=== PATIENT | female | born 1965 | race Caucasian/White ===

== ENCOUNTER 2022-12-28 07:21 | Outpatient (RCR) | payer MEDICARE, OTHER, MEDICAID, SELFPAY ==
--- NOTE | 2022-12-16 | CR1_ITS ---
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
--- NOTE | 2022-12-16 12:39 | CR1_ITS ---
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
--- NOTE | 2023-01-13 14:09 | CR1_ITS ---
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
--- NOTE | 2023-02-11 14:18 | CR1_ITS ---
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
== END 2023-03-03 08:45 | disposition home or self-care (01) ==
LOC: CR 07:21
PROVIDERS: PCP Family Medicine; Visit Provider Family Medicine
DX: I20.8 Other forms of angina pectoris (principal)
CPT/HCPCS: 93798

== ENCOUNTER 2023-02-12 08:59 | Outpatient (OUT) | payer MEDICARE, OTHER, MEDICAID, SELFPAY ==
--- NOTE | 2023-02-12 09:38 | CA_ITS ---
Patient: YARI ALSTON Exam Date: 02/12/2023 : 1965 Gender:F Ordering : LINDA MAN Admission #: [id number] Family : Order #: [id number] CLICK HERE TO VIEW EXAM ECHOCARDIOGRAM REPORT PROCEDURE: CA ECHO DOPPLER COMPLETE INDICATIONS: Abnormal ECG, h/o myocardial infarction, hypertension COMPARISON: None. DESCRIPTION: COMPLETE ECHOCARDIOGRAM Real-time transthoracic echocardiography with 2D, M-mode, spectral and color flow Doppler performed. QUALITY: Technical quality was good. LEFT VENTRICLE: Normal chamber size. Mild concentric left ventricular hypertrophy. Global left ventricular systolic function is normal. LV EF: Normal left ventricular ejection fraction, (>55%). DIASTOLIC: Diastolic function is indeterminate. ATRIAL SEPTUM: LEFT ATRIUM: Mild dilatation. RIGHT ATRIUM: Mild dilatation. RIGHT VENTRICLE: Normal chamber size. Normal right ventricular systolic function. TRICUSPID VALVE: Normal mobility and thickness. No stenosis with trivial regurgitation. Doppler studies reveal mildly (35-45) elevated right sided pressures. RVSP 39 mmHg MITRAL VALVE: Normal mobility and thickness. No evidence of mitral valve stenosis. There is no mitral annular calcification. No mitral regurgitation. AORTIC VALVE: Normal trileaflet appearance. No visible sclerosis. Normal leaflet mobility. No evidence of aortic valve stenosis. No aortic regurgitation. AORTIC ROOT: Normal diameter and appearance. PULMONIC VALVE: Normal thickness and mobility. No stenosis. No regurgitation. PERICARDIUM: Trivial pericardial effusion. IVC: Unable to see due to packed wound. PLEURA: CONCLUSION: 1. Mild concentric left ventricular hypertrophy with normal systolic function. LVEF is 55 to 60%. 2. Normal right ventricular size and systolic function. 3. Mild biatrial dilatation. 4. No significant valvular dysfunction. 5. Mildly elevated right-sided pressures. Adult Echocardiography Procedure Report Left Ventricle LVEDD (3.7 - 5.6 cm): 4.95 cm LVESD (2.2 - 4.0 cm): 3.34 cm LVIVS thickness (0.6 - 1.2 cm): 1.28 cm LVPW thickness (0.5 - 1.0 cm): 1.01 cm e': 0.13 m/s E - e': 6.61 LVOT Max Gradient: 6.59 mm[Hg] LVOT Area (cm2): 1.28 m/s Peak Velocity (LVOT): 1.28 m/s Mean Velocity (LVOT): 0.90 m/s LVOT Diameter 2.16 cm Left Atrium LA Volume Index (2D A2C): 41.38 ml/m2 Left Atrium Systolic Dimension: 3.75 cm Mitral Valve MV E to A Ratio: 1.22 Mitral Valve A-Wave Peak Velocity: 0.69 m/s Mitral Valve E-Wave Peak Velocity: 0.85 m/s Right Ventricle Aorta AO Root Diam: 3.19 cm Ascending Ao Diam: 2.99 cm Aortic Valve AoV Area (Peak Demarcus): 2.56 cm2, 2.56 cm2 AoV Area (VTI): 2.52 cm2, 2.52 cm2 Peak Velocity(Antegrade Flow): 1.84 m/s Peak Gradient(Antegrade Flow): 13.53 mm[Hg] Mean Velocity(Antegrade Flow): 1.21 m/s Mean Gradient(Antegrade Flow): 6.87 mm[Hg] Velocity Time Integral: 39.91 cm Tricuspid Valve Peak Velocity (Regurgitant Flow): 3.01 m/s Pulmonic Valve Peak Velocity: 0.88 m/s Peak Gradient: 3.15 mm[Hg], 3.10 mm[Hg] Right Atrium Right Atrium Systolic Pressure: 49.13 ml, 49.13 ml Dictated by: Leonard Altamirano M.D. on 02/12/2023 at 13:41 Approved by: Leonard Altamirano M.D. on 02/12/2023 at 13:44
== END 2023-02-12 09:00 | disposition home or self-care (01) ==
LOC: CARD 08:59
PROVIDERS: PCP Family Medicine; Visit Provider Nurse Practitioner
DX: R94.31 Abnormal electrocardiogram [ECG] [EKG] (principal)
CPT/HCPCS: 93306

== ENCOUNTER 2023-02-24 20:54 | Outpatient (OUT) | payer MEDICARE, OTHER, MEDICAID, SELFPAY | END 2023-02-24 20:55 | disposition home or self-care (01) | LOC: SLEEP 20:54 | PROVIDERS: PCP Nurse Practitioner; Visit Provider Nurse Practitioner | DX: G47.33 Obstructive sleep apnea (adult) (pediatric) (principal) | CPT/HCPCS: 95810 ==

== ENCOUNTER 2023-03-29 20:52 | Outpatient (OUT) | payer MEDICARE, OTHER, MEDICAID, SELFPAY | END 2023-03-29 20:53 | disposition home or self-care (01) | LOC: SLEEP 20:52 | PROVIDERS: PCP Nurse Practitioner; Visit Provider Nurse Practitioner | DX: G47.33 Obstructive sleep apnea (adult) (pediatric) (principal) | CPT/HCPCS: 95811 ==

== ENCOUNTER 2023-04-15 13:03 | Outpatient (OUT) | payer MEDICARE, MEDICAID, SELFPAY | END 2023-04-15 13:04 | disposition home or self-care (01) | LOC: WC 13:03 | PROVIDERS: PCP Nurse Practitioner; Visit Provider Surgery | DX: T81.89XA Other complications of procedures, not elsewhere classified, initial encounter (principal) | CPT/HCPCS: A6199; A6213; G0463 ==

== ENCOUNTER 2023-04-19 09:12 | Outpatient (OUT) | payer MEDICARE, MEDICAID, SELFPAY ==
--- NOTE | 2023-04-19 09:14 | CT_ITS ---
The [address] [address] Patient Name: YARI ALSTON MRN: [id number] date: 1965 Sex: F Assigned Patient Location: CT Current Patient Location: CT Accession/Order Number: [id number] Exam Date: 04/19/2023 11:05 Report Date: 04/19/2023 12:35 At the request of: DONAL GEORGE Procedure: CT abdomen pelvis w con EXAM: CT abdomen pelvis w con HISTORY: Abdominal Abscess, Mesh Post Surgical COMPARISON: CT abdomen and pelvis 12/12/2021. TECHNIQUE: Following intravenous administration of 100 cc of Omnipaque 350, axial soft tissue windows of the abdomen and pelvis were performed with coronal and sagittal reformats. CT dose reduction technique was used including Automated Exposure Control. FINDINGS: Abdomen: There is fatty infiltration of the liver. The gallbladder is surgically absent. The spleen, pancreas, adrenal glands and kidneys are unremarkable. The bilateral ureters are nondilated. 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 No bowel wall thickening or obstruction. The appendix is nondilated. The aorta is normal caliber. No enlarged abdominal lymph nodes or free abdominal fluid. Within the anterior midline abdomen there is a rim-enhancing focal fluid collection measuring approximately 9.4 x 1.7 x 7.5 cm. A portion of this collection extends through the anterior abdominal wall and subcutaneous fat to the skin surface just to the right of midline. There is stranding of the fat throughout the subcutaneous fat of the anterior and lateral abdomen. Pelvis: Unremarkable bladder. The uterus is surgically absent. No enlarged pelvic lymph nodes or free pelvic fluid. Within the subcutaneous fat caudal to the umbilicus into the right midline there is a gas and fluid focal collection measuring approximately 3.3 x 1.6 x 2.9 cm. No aggressive sclerotic or lytic osseous lesions. Mild multilevel degenerative spondylosis. CT/CT abdomen pelvis w con IMPRESSION: 1. Anterior abdominal abscess, as described above. There is a second smaller abscess within the subcutaneous fat of the anterior pelvis. 2. Other more incidental findings, as described above. Electronically authenticated by: KELLY LORENZANA Date: 04/19/2023 12:35
== END 2023-04-19 09:13 | disposition home or self-care (01) ==
LOC: CT 09:12
PROVIDERS: Visit Provider Surgery
DX: L02.211 Cutaneous abscess of abdominal wall (principal); Y83.9 Surgical procedure, unspecified as the cause of abnormal reaction of the patient, or of later complication, without mention of misadventure at the time of the procedure
CPT/HCPCS: 74177; Q9967

== ENCOUNTER 2023-08-26 17:51 | Emergency (ER) | payer MEDICARE, OTHER, MEDICAID, SELFPAY ==
[2023-08-26 18:00] VITALS: BP 149/96; PULSE 66; RESP 16; TEMP 36.4; O2SAT 98; BMI 24.8
--- NOTE | 2023-08-26 18:03 | XR_ITS ---
The [address] [address] Patient Name: YARI ALSTON MRN: [id number] date: 1965 Sex: F Assigned Patient Location: ER Current Patient Location: ED.MAIN Accession/Order Number: [id number] Exam Date: 08/26/2023 18:11 Report Date: 08/26/2023 18:25 At the request of: CB MATAMOROS Procedure: XR foot RT min 3V EXAM: XR foot RT min 3V TECHNIQUE: AP, lateral and oblique views right foot HISTORY: right foot injury COMPARISON: None. FINDINGS: No acute fracture or dislocation. Chronic appearing fragmentation of the head of the fourth proximal phalanx. Soft tissues are unremarkable. Small dorsal and plantar calcaneal spurs. XR/XR foot RT min 3V IMPRESSION: No acute fracture or dislocation. Electronically authenticated by: MIGNON PEREZ Date: 08/26/2023 18:25
--- NOTE | 2023-08-26 18:29 | ED.LOWEXI1 ---
HPI - Extremity Injury (Lower) General Chief Complaint: Extremity Injury, Lower Stated Complaint: LOWER EXTREMITY INJURY Time Seen by Provider: 08/26/23 17:53 Source: patient Mode of arrival: Wheelchair Limitations: no limitations History of Present Illness HPI Narrative: Patient is a 57-year-old female presents to the emergency department for the evaluation of pain to the right lateral foot. She states she took a step and felt a pop in her foot. No medications taken prior to arrival. No other falls or associated injuries. Related Data Home Medications Medication Instructions Recorded Confirmed aspirin 81 mg tablet,delayed 81 mg PO DAILY 12/18/22 08/26/23 release (Adult Aspirin Regimen) levothyroxine 200 mcg capsule 200 mcg PO DAILY 12/18/22 08/26/23 multivitamin 1 tab PO DAILY 12/18/22 08/26/23 pravastatin 20 mg tablet 20 mg PO DAILY 12/18/22 08/26/23 Previous Rx's Medication Instructions Recorded hydrocodone 5 mg-acetaminophen 325 1 tab PO Q6H PRN pain 3 days #12 08/26/23 mg tablet tabs Allergies Allergy/AdvReac Type Severity Reaction Status Date / Time cephalexin [From Keflex] Allergy Mild itching Verified 08/26/23 18:17 codeine Allergy Mild Anaphylaxis Verified 08/26/23 18:17 tramadol AdvReac Mild Hallucinati Verified 08/26/23 18:04 ng Review of Systems ROS Constitutional Denies: fever or chills Ears, nose, mouth, and throat Denies: throat pain or nasal congestion Cardiovascular Denies: chest pain Respiratory Denies: shortness of breath or cough Gastrointestinal Denies: nausea or vomiting Genitourinary Denies: painful urination Musculoskeletal Reports: extremity pain; Denies: back pain or neck pain Integumentary/Breast Denies: rash Neurological Denies: headache Endocrine Denies: excessive urination Hematologic/Lymphatic Denies: easy bruising or easy bleeding PFSH PFSH Social History Smoking status: Never smoker Exam Narrative Exam Narrative: Gen.: Awake, alert, in no distress Head: Normocephalic, atraumatic ENT: Moist mucous membranes Respiratory: No respiratory distress Extremities: Moves extremities equally, Tenderness with no appreciable swelling or ecchymosis to the right lateral foot. 2+ right DP pulse.No bony tenderness over the medial or lateral malleolus. Psych: Normal mood and affect Neuro: No focal neuro deficit Skin: Warm, dry, intact Constitutional Vital Signs, click to edit/add: Last Vital Signs Temp 97.6 F 08/26/23 18:00 Pulse 66 08/26/23 18:00 Resp 16 08/26/23 18:00 BP 149/96 H 08/26/23 18:00 Pulse Ox 98 08/26/23 18:00 Course Vital Signs Vital signs: Vital Signs Temperature 97.6 F 08/26/23 18:00 Pulse Rate 66 08/26/23 18:00 Respiratory Rate 16 08/26/23 18:00 Blood Pressure 149/96 H 08/26/23 18:00 Pulse Oximetry 98 08/26/23 18:00 Temperature 97.6 F 08/26/23 18:00 Pulse Rate 66 08/26/23 18:00 Respiratory Rate 16 08/26/23 18:00 Blood Pressure 149/96 H 08/26/23 18:00 Pulse Oximetry 98 08/26/23 18:00 MDM - Extremity Injury (Lower) MDM Narrative Medical decision making narrative: X-rays with no evidence of acute fracture or dislocation. Patient placed in a an Tong wrap and postop shoe. She states she has crutches at home. Rest, ice, elevate. Neurovascularly intact at discharge. Short course of analgesics prescribed for home. Return to the ER if symptoms change or worsen Medical Records Attestation: I reviewed the patient's medical records. Imaging Data XR foot: Attestation: I have reviewed the pertinent imaging results. Radiologist's impression: ITS Impressions Foot X-Ray 08/26/23 18:03 IMPRESSION: No acute fracture or dislocation. Electronically authenticated by: MIGNON PEREZ Date: 08/26/2023 18:25 Discharge Plan Discharge Chief Complaint: Extremity Injury, Lower Clinical Impression: Sprain of right foot Patient Disposition: Home, Self-Care Time of Disposition Decision: 19:00 Condition: Good Prescriptions / Home Meds: New hydrocodone-acetaminophen 5-325 mg tablet 1 tab PO Q6H PRN (Reason: pain) 3 Days Qty: 12 0RF Rx Instructions: DX: M79.671 No Action aspirin [Adult Aspirin Regimen] 81 mg tablet,delayed release (DR/EC) 81 mg PO DAILY levothyroxine 200 mcg capsule 200 mcg PO DAILY multivitamin Tablet 1 tab PO DAILY pravastatin 20 mg tablet 20 mg PO DAILY Instructions: Foot Sprain (ED) Stand Alone Forms: Portal Instructions Referrals: Physician,Non-Staff, MD [Primary Care Provider] - 1 week
== END 2023-08-26 19:07 | disposition home or self-care (01) ==
PROVIDERS: Emergency Provider Emergency Medicine
DX: S93.601A Unspecified sprain of right foot, initial encounter (principal); X58.XXXA Exposure to other specified factors, initial encounter; Z79.82 Long term (current) use of aspirin; Z79.899 Other long term (current) drug therapy
CPT/HCPCS: 73630; 99283

== ENCOUNTER 2023-10-19 08:43 | Outpatient (OUT) | payer MEDICARE, OTHER, MEDICAID, SELFPAY ==
[2023-10-19 09:32] LABS: Alanine Aminotransferase 69 U/L (14-59); Albumin Globulin Ratio 0.8; Albumin Level 3.2 g/dL (3.4-5.0); Alkaline Phosphatase 66 U/L (46-116); Anion Gap 13.3; Aspartate Amino Transferase 37 U/L (15-37); BUN Creatinine Ratio 33.8; Bilirubin Total 0.6 mg/dL (0.2-1.0); Calcium 9.3 mg/dL (8.5-10.1); Chloride 105 mmol/L (98-107); Chol HDL Ratio 1.9; Cholesterol 186 mg/dL (<=200); Estimated GFR (African America >60 (>=60); Estimated GFR (Non-African Ame >60 (>=60); Globulin 3.8 g/dL; Glucose 87 mg/dL (74-106); HDL Cholesterol 99 mg/dL (40-60); Potassium 4.3 mmol/L (3.5-5.1); Sodium 142 mmol/L (136-145); Triglycerides 52 mg/dL (<=150); VLDL CHOLESTEROL 10.4 mg/dL
[2023-10-19 10:39] LABS: Basophils Percent Auto 0.4 % (0.2-2.0); Eosinophils Absolute Auto 0.1 10^3/uL (0.0-0.7); Eosinophils Percent Auto 1.4 % (0.9-7.0); Hematocrit 36.1 % (36.0-48.0); Immature Granulocytes Abs Auto 0.01 10^3/uL (0.00-0.03); Immature Granulocytes Pct Auto 0.2 % (0.0-0.5); Lymphocytes Absolute Auto 1.8 10^3/uL (1.2-3.8); Lymphocytes Percent Auto 37.1 % (20.5-60.0); Mean Corpuscular HGB Conc 30.5 g/dL (29.9-35.2); Mean Corpuscular Hemoglobin 25.8 pg (26.7-34.0); Mean Corpuscular Volume 84.5 fL (81.0-99.0); Monocytes Absolute Auto 0.3 10^3/uL (0.3-0.8); Monocytes Percent Auto 6.7 % (1.7-12.0); Neutrophils Absolute Auto 2.7 10^3/uL (1.4-6.5); Neutrophils Percent Auto 54.2 % (43.0-75.0); Platelet Count 175 10^3/uL (150-450); Red Blood Count 4.27 10^6/uL (4.20-5.40); Red Cell Distribution Width 18.4 % (11.0-15.0)
== END 2023-10-19 08:44 | disposition home or self-care (01) ==
LOC: LAB 08:45
PROVIDERS: PCP Family Medicine; Visit Provider Nurse Practitioner Family
DX: I47.10 Supraventricular tachycardia, unspecified (principal); E78.5 Hyperlipidemia, unspecified
CPT/HCPCS: 36415; 80053; 80061; 85025

== ENCOUNTER 2023-11-25 08:55 | Outpatient (OUT) | payer MEDICARE, OTHER, MEDICAID, SELFPAY ==
[2023-11-25 10:42] LABS: Anion Gap 12.2; BUN Creatinine Ratio 26.1; Calcium 9.6 mg/dL (8.5-10.1); Carbon Dioxide 27.8 mmol/L (21.0-32.0); Chloride 106 mmol/L (98-107); Estimated GFR (African America >60 (>=60); Estimated GFR (Non-African Ame >60 (>=60); Glucose 88 mg/dL (74-106); Sodium 142 mmol/L (136-145)
== END 2023-11-25 08:56 | disposition home or self-care (01) ==
LOC: LAB 08:57
PROVIDERS: PCP Family Medicine; Visit Provider Nurse Practitioner Family
DX: Z01.812 Encounter for preprocedural laboratory examination (principal); Z01.818 Encounter for other preprocedural examination
CPT/HCPCS: 36415; 80048

== ENCOUNTER 2023-12-02 15:02 | Outpatient (OUT) | payer MEDICARE, OTHER, MEDICAID, SELFPAY ==
[2023-12-02 15:55] LABS: Anion Gap 10.3; BUN Creatinine Ratio 27.7; Calcium 8.5 mg/dL (8.5-10.1); Carbon Dioxide 28.7 mmol/L (21.0-32.0); Chloride 105 mmol/L (98-107); Estimated GFR (African America >60 (>=60); Estimated GFR (Non-African Ame >60 (>=60); Glucose 76 mg/dL (74-106); Sodium 140 mmol/L (136-145)
[2023-12-02 16:40] LABS: Basophils Percent Auto 0.4 % (0.2-2.0); Eosinophils Absolute Auto 0.1 10^3/uL (0.0-0.7); Eosinophils Percent Auto 1.2 % (0.9-7.0); Hematocrit 35.2 % (36.0-48.0); Hemoglobin 10.8 g/dL (12.0-16.0); Immature Granulocytes Abs Auto 0.02 10^3/uL (0.00-0.03); Immature Granulocytes Pct Auto 0.3 % (0.0-0.5); Lymphocytes Percent Auto 29.7 % (20.5-60.0); Mean Corpuscular HGB Conc 30.7 g/dL (29.9-35.2); Mean Corpuscular Hemoglobin 25.9 pg (26.7-34.0); Mean Corpuscular Volume 84.4 fL (81.0-99.0); Mean Platelet Volume 10.7 fL (9.5-13.5); Monocytes Absolute Auto 0.4 10^3/uL (0.3-0.8); Neutrophils Absolute Auto 4.3 10^3/uL (1.4-6.5); Neutrophils Percent Auto 62.4 % (43.0-75.0); Platelet Count 270 10^3/uL (150-450); Red Blood Count 4.17 10^6/uL (4.20-5.40); Red Cell Distribution Width 17.2 % (11.0-15.0); White Blood Count 6.9 10^3/uL (4.0-11.0)
== END 2023-12-02 15:03 | disposition home or self-care (01) ==
LOC: LAB 15:05
PROVIDERS: PCP Family Medicine; Visit Provider Internal Medicine Cardiovascular Disease
DX: I47.10 Supraventricular tachycardia, unspecified (principal)
CPT/HCPCS: 36415; 80048; 85025

== ENCOUNTER 2023-12-13 11:09 | Observation (INO) | payer MEDICARE, OTHER, MEDICAID, SELFPAY ==
[2023-12-13] VITALS (36 sets, daily range): BP systolic 107–150; BP diastolic 73–99; PULSE 53–78; TEMP 36.4–36.8; O2SAT 94–100; BMI 23.8; BMI 27.1
--- NOTE | 2023-12-13 11:18 | ECG_ITS ---
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
--- NOTE | 2023-12-13 11:18 | XR_ITS ---
The [address] [address] Patient Name: YARI ALSTON MRN: [id number] date: 1965 Sex: F Assigned Patient Location: ER Current Patient Location: ED.MAIN Accession/Order Number: [id number] Exam Date: 12/13/2023 11:25 Report Date: 12/13/2023 12:04 At the request of: JAQUELINE VERMA Procedure: XR chest 1V EXAMINATION: XR chest 1V 12/13/2023 9:02 AM PDT HISTORY: cp TECHNIQUE: Single frontal view of the chest acquired. COMPARISONS: None. FINDINGS: Lines/tubes/other: None. Heart and mediastinum: The heart and the mediastinum are within normal limits for technique. Bones: No acute osseous abnormality. Calcific tendinitis of the left shoulder. Lungs: The lungs are clear. There is no evidence of pneumonia or pulmonary edema. Pleura: There is no significant pleural effusion or pneumothorax. Other: None. XR/XR chest 1V IMPRESSION: No acute cardiopulmonary abnormality. Electronically authenticated by: YOSHI HESS Date: 12/13/2023 12:04
--- NOTE | 2023-12-13 11:21 | ED.GENADUL1 ---
Documented by User: Praveen Mendiola MD 12/14/23 19:36 HPI HPI - General Adult General Chief complaint: Chest Pain Stated complaint: CHEST PAIN Time Seen by Provider: 12/13/23 11:18 Source: patient Mode of arrival: Wheelchair History of Present Illness HPI narrative: Patient is a All systems are negative except as noted/marked. All systems reviewed and otherwise negative. Nurses note and vital signs reviewed and patient is not hypoxic. General: The patient appears well and in no apparent distress. Patient is resting comfortably on cart. Patient is not toxic, lethargic, or listless Skin: Warm, dry, no pallor noted. There is no rash noted. No petechiae, purpura. Head: Normocephalic, atraumatic Eye: Normal conjunctiva, no drainage, EOMI. PERRL Ears, Nose, Mouth, and Throat: oral mucosa is moist. Nares patent. Mouth without vesicles. Cardiovascular: Regular Rate and Rhythm, no murmur, gallop, rub Respiratory: Patient is in no distress, no accessory muscle use, lungs are clear to auscultation, no wheezing, rales or rhonchi Back: non-tender, no CVA tenderness bilaterally to percussion. No CT LS midline pain GI: no tenderness to palpation, no masses appreciated. No rebound, guarding, or rigidity noted. No distention Musculoskeletal: Patient has full range of motion of all of the extremities, no motor, sensory, or focal neurological deficits Neurological: A&O x4, normal speech Psychiatric: Cooperative Related Data Home Medications ?Medication ?Instructions ?Recorded ?Confirmed aspirin 81 mg tablet,delayed 81 mg PO DAILY 12/18/22 12/13/23 release (Adult Aspirin Regimen) multivitamin 1 tab PO DAILY 12/18/22 12/13/23 pravastatin 20 mg tablet 20 mg PO QPM 12/18/22 12/14/23 Previous Rx's ?Medication ?Instructions ?Recorded levothyroxine 125 mcg capsule 125 mcg PO DAILY #30 caps 12/14/23 Allergies Allergy/AdvReac Type Severity Reaction Status Date / Time cephalexin [From Keflex] Allergy Mild itching Verified 08/26/23 18:17 codeine Allergy Mild Anaphylaxis Verified 08/26/23 18:17 tramadol AdvReac Mild Hallucinati Verified 08/26/23 18:04 ng Opioid HPI Opioid Management Most Recent Opioid Data: Last Pain Scale 9 08/26/23 18:51 Last Pain Assessment 12/14/23 17:56 Last ORT Total Score 0 12/13/23 16:43 Last ORT Risk Category Low Risk 12/13/23 16:43 PFSH PFSH Medical History (Updated 12/14/23 @ 15:56 by Supriya Lino NP) Hypothyroid ?E03.9 - Hypothyroidism, unspecified (ICD-10) SVT (supraventricular tachycardia) ?I47.10 - Supraventricular tachycardia, unspecified (ICD-10) Surgical History (Updated 12/13/23 @ 11:27 by Tiffany Fermin) H/O abdominal surgery ?Z98.890 - Other specified postprocedural states (ICD-10) Social History Smoking status: Never smoker Highest level of school completed/degree received: Bachelor's degree Do you think of yourself as: straight/heterosexual Gender Identity: female Exam Constitutional Vital Signs, click to edit/add: Last Vital Signs Temp 97.7 F 12/14/23 13:57 Pulse 69 12/14/23 17:54 Resp 18 12/14/23 13:57 BP 127/82 12/14/23 13:57 Pulse Ox 96 12/14/23 13:57 O2 Del Method Room Air 12/14/23 13:57 Course Course Hospital Course: The patient was admitted with paroxysmal palpitations concerning for A-fib versus SVT after recent cardiac ablation for SVT and post ablation A-fib that resolved. She also complained of chest heaviness at the time of admission and so cardiac evaluation was indicated. Serial troponins were slightly elevated additionally but remained flat and then trended down to normal on repeat studies. A TSH was notably elevated in the ED and her home thyroid dosing was increased accordingly. The patient was prescribed flecainide which we had thought she was taking as prescribed. Apparently she filled the prescription but forgot to start taking it and is never taken any doses at home. During this admission her heart was mostly in sinus rhythm but there were episodes that appeared junctional but with a stable rate of high 50s to 70s. The patient's chest discomfort and palpitations have completely resolved and she has experienced no further episodes of dizziness. Stress test was obtained on the day of discharge and this was unremarkable without evidence of reversible ischemia. She is being discharged home in stable condition. We have ordered a Holter monitor for 7 days after discharge to continue to monitor for arrhythmias (results to be sent to cardiology). She should follow-up with her PCP within 5 to 7 days and with cardiology within 1 to 2 weeks. She should discuss with cardiology if the flecainide medication should be started as previously prescribed, but it has been held at discharge from this hospitalization. Vital Signs Vital signs: Vital Signs Temperature 97.6 F 12/13/23 11:12 Pulse Rate 66 12/13/23 11:12 Respiratory Rate 18 12/13/23 11:12 Blood Pressure 147/99 H 12/13/23 11:12 Pulse Oximetry 97 12/13/23 11:12 Oxygen Delivery Method Room Air 12/13/23 11:12 Temperature 97.7 F 12/14/23 13:57 Pulse Rate 69 12/14/23 17:54 Respiratory Rate 18 12/14/23 13:57 Blood Pressure 127/82 12/14/23 13:57 Pulse Oximetry 96 12/14/23 13:57 Oxygen Delivery Method Room Air 12/14/23 13:57 Medical Decision Making MDM Narrative Medical decision making narrative: Initial troponin was 70.1, repeat 67.1. The patient had a cardiac ablation last Wednesday12/08/23. She was pain-free shortly after arrival in the ED. Findings were discussed with the patient and her family members. I spoke with Dr. Ibrahim, her nurse sitter. He recommended admission for observation, nuclear stress test tomorrow morning. He reported the patient could stay at [facility]. I then spoke with Dr. Kaur who accepted the patient for admission. She was given aspirin. I, Dr Mendiola, have reviewed the above progress note and course of action in the ER; agree with the above. I have personally seen and evaluated this patient, gone over history and physical, and discussed disposition and treatment plan with the patient. Lab Data Labs: Lab Results 12/13/23 12/13/23 Range/Units 11:19 12:35 WBC 7.1 (4.0-11.0) 10^3/uL RBC 4.41 (4.20-5.40) 10^6/uL Hgb 11.7 L (12.0-16.0) g/dL Hct 38.5 (36.0-48.0) % MCV 87.3 (81.0-99.0) fL MCH 26.5 L (26.7-34.0) pg MCHC 30.4 (29.9-35.2) g/dL RDW 16.7 H (11.0-15.0) % Plt Count 228 (150-450) 10^3/uL MPV 10.2 (9.5-13.5) fL Neut % (Auto) 65.3 (43.0-75.0) % Lymph % (Auto) 27.3 (20.5-60.0) % Sumter % (Auto) 5.4 (1.7-12.0) % Eos % (Auto) 1.4 (0.9-7.0) % Baso % (Auto) 0.3 (0.2-2.0) % Neut # (Auto) 4.6 (1.4-6.5) 10^3/uL Lymph # (Auto) 1.9 (1.2-3.8) 10^3/uL Sumter # (Auto) 0.4 (0.3-0.8) 10^3/uL Eos # (Auto) 0.1 (0.0-0.7) 10^3/uL Baso # (Auto) 0.0 (0.0-0.1) 10^3/uL Abs Immat Gran (auto) 0.02 (0.00-0.03) 10^3/uL Imm/Tot Granulo (auto) 0.3 (0.0-0.5) % PT 10.1 (9.0-11.6) sec INR 0.95 APTT 24.2 (22.3-36.2) sec Sodium 143 (136-145) mmol/L Potassium 3.9 (3.5-5.1) mmol/L Chloride 104 (98-107) mmol/L Carbon Dioxide 21.7 (21.0-32.0) mmol/L Anion Gap 21.2 BUN 17.0 (7.0-18.0) mg/dL Creatinine 0.70 (0.55-1.02) mg/dL Est GFR ( Amer) >60 (>=60) Est GFR (Non-Af Amer) >60 (>=60) BUN/Creatinine Ratio 24.3 Glucose 86 (74-106) mg/dL Calcium 8.5 (8.5-10.1) mg/dL Total Bilirubin 0.7 (0.2-1.0) mg/dL AST 39 H (15-37) U/L ALT 51 (14-59) U/L Alkaline Phosphatase 69 (46-116) U/L Troponin I High Sens 70.1 H* 67.1 H* (4.0-51.3) pg/mL NT-Pro-B Natriuret Pep 342.0 (<=900.0) pg/mL Total Protein 6.8 (6.4-8.2) g/dL Albumin 3.0 L (3.4-5.0) g/dL Globulin 3.8 g/dL Albumin/Globulin Ratio 0.8 Lipase 36.0 (16.0-77.0) U/L Free T4 0.75 L (0.76-1.46) ng/dL TSH & Free T4 Interp 10.110 H (0.358-3.740) uIU/mL Imaging Data Chest x-ray: Radiologist's impression: ITS Impressions Chest X-Ray 12/13/23 11:18 IMPRESSION: No acute cardiopulmonary abnormality. Electronically authenticated by: YOSHI HESS Date: 12/13/2023 12:04 ECG Data Attestation: I personally reviewed and interpreted this ECG as follows: (EKG #1 EKG interpretation. Irregular irregular rhythm, intermittent P waves noted, QTc of 438, no acute ST elevation, normal axis deviation. This is EKG #1) Discharge Plan Discharge Chief Complaint: Chest Pain Clinical Impression: Chest pain Qualifiers: Chest pain type: unspecified Qualified Code(s): R07.9 - Chest pain, unspecified Patient Disposition: Admitted as Observation Time of Disposition Decision: 14:36 Condition: Good Discharge Date/Time: 12/13/23 15:22 Documented by User: Linh Cherry 12/13/23 21:52 HPI HPI - General Adult General Chief complaint: Chest Pain Stated complaint: CHEST PAIN Time Seen by Provider: 12/13/23 11:18 History of Present Illness HPI narrative: Patient is a 58 year old female that presents to the ED for chest pain, dizziness. Onset was while driving today. Denies fever, chills, cough, SOB, BURRIS, vision changes. She had cardiac ablation 12/08/23 at [facility] after developing a-fib with RVR. She is not currently taking her aspirin due to a scheduled shoulder surgery 12/16/23. All systems are negative except as noted/marked. All systems reviewed and otherwise negative. Nurses note and vital signs reviewed and patient is not hypoxic. General: The patient appears well and in no apparent distress. Patient is resting comfortably on cart. Patient is not toxic, lethargic, or listless Skin: Warm, dry, no pallor noted. There is no rash noted. No petechiae, purpura. Head: Normocephalic, atraumatic Eye: Normal conjunctiva, no drainage, EOMI. PERRL Ears, Nose, Mouth, and Throat: oral mucosa is moist. Nares patent. Mouth without vesicles. Cardiovascular: Irregular rhythm Respiratory: Patient is in no distress, no accessory muscle use, lungs are clear to auscultation, no wheezing, rales or rhonchi Back: non-tender, no CVA tenderness bilaterally to percussion. No CT LS midline pain GI: no tenderness to palpation, no masses appreciated. No rebound, guarding, or rigidity noted. No distention Musculoskeletal: Patient has full range of motion of all of the extremities, no motor, sensory, or focal neurological deficits Neurological: A&O x4, normal speech Psychiatric: Cooperative Related Data Home Medications ?Medication ?Instructions ?Recorded ?Confirmed aspirin 81 mg tablet,delayed 81 mg PO DAILY 12/18/22 12/13/23 release (Adult Aspirin Regimen) multivitamin 1 tab PO DAILY 12/18/22 12/13/23 pravastatin 20 mg tablet 20 mg PO QPM 12/18/22 12/14/23 Previous Rx's ?Medication ?Instructions ?Recorded levothyroxine 125 mcg capsule 125 mcg PO DAILY #30 caps 12/14/23 Allergies Allergy/AdvReac Type Severity Reaction Status Date / Time cephalexin [From Keflex] Allergy Mild itching Verified 08/26/23 18:17 codeine Allergy Mild Anaphylaxis Verified 08/26/23 18:17 tramadol AdvReac Mild Hallucinati Verified 08/26/23 18:04 ng Opioid HPI Opioid Management Most Recent Opioid Data: Last Pain Scale 9 08/26/23 18:51 Last Pain Assessment 12/14/23 17:56 Last ORT Total Score 0 12/13/23 16:43 Last ORT Risk Category Low Risk 12/13/23 16:43 Review of Systems ROS Constitutional Denies: fever or chills Ears, nose, mouth, and throat Denies: neck pain Cardiovascular Reports: chest pain and lightheadedness Respiratory Denies: shortness of breath or cough Gastrointestinal Denies: abdominal pain, nausea, vomiting or diarrhea Neurological Reports: dizziness; Denies: headache, numbness in extremities or weakness in extremities PFSH PFSH Medical History (Updated 12/14/23 @ 15:56 by Supriya Lino NP) Hypothyroid ?E03.9 - Hypothyroidism, unspecified (ICD-10) SVT (supraventricular tachycardia) ?I47.10 - Supraventricular tachycardia, unspecified (ICD-10) Surgical History (Updated 12/13/23 @ 11:27 by Tiffany Fermin) H/O abdominal surgery ?Z98.890 - Other specified postprocedural states (ICD-10) Social History Smoking status: Never smoker Highest level of school completed/degree received: Bachelor's degree Do you think of yourself as: straight/heterosexual Gender Identity: female Exam Constitutional Vital Signs, click to edit/add: Last Vital Signs Temp 97.7 F 12/14/23 13:57 Pulse 69 12/14/23 17:54 Resp 18 12/14/23 13:57 BP 127/82 12/14/23 13:57 Pulse Ox 96 12/14/23 13:57 O2 Del Method Room Air 12/14/23 13:57 Common normals: no apparent distress and oriented x3 Eye Common normals: no scleral icterus Neck & C-Spine Common normals: supple Course Course Hospital Course: The patient was admitted with paroxysmal palpitations concerning for A-fib versus SVT after recent cardiac ablation for SVT and post ablation A-fib that resolved. She also complained of chest heaviness at the time of admission and so cardiac evaluation was indicated. Serial troponins were slightly elevated additionally but remained flat and then trended down to normal on repeat studies. A TSH was notably elevated in the ED and her home thyroid dosing was increased accordingly. The patient was prescribed flecainide which we had thought she was taking as prescribed. Apparently she filled the prescription but forgot to start taking it and is never taken any doses at home. During this admission her heart was mostly in sinus rhythm but there were episodes that appeared junctional but with a stable rate of high 50s to 70s. The patient's chest discomfort and palpitations have completely resolved and she has experienced no further episodes of dizziness. Stress test was obtained on the day of discharge and this was unremarkable without evidence of reversible ischemia. She is being discharged home in stable condition. We have ordered a Holter monitor for 7 days after discharge to continue to monitor for arrhythmias (results to be sent to cardiology). She should follow-up with her PCP within 5 to 7 days and with cardiology within 1 to 2 weeks. She should discuss with cardiology if the flecainide medication should be started as previously prescribed, but it has been held at discharge from this hospitalization. Vital Signs Vital signs: Vital Signs Temperature 97.6 F 12/13/23 11:12 Pulse Rate 66 12/13/23 11:12 Respiratory Rate 18 12/13/23 11:12 Blood Pressure 147/99 H 12/13/23 11:12 Pulse Oximetry 97 12/13/23 11:12 Oxygen Delivery Method Room Air 12/13/23 11:12 Temperature 97.7 F 12/14/23 13:57 Pulse Rate 69 12/14/23 17:54 Respiratory Rate 18 12/14/23 13:57 Blood Pressure 127/82 12/14/23 13:57 Pulse Oximetry 96 12/14/23 13:57 Oxygen Delivery Method Room Air 12/14/23 13:57 Medical Decision Making MDM Narrative Medical decision making narrative: Initial troponin was 70.1, repeat 67.1. The patient had a cardiac ablation last Wednesday12/08/23. She was pain-free shortly after arrival in the ED. Findings were discussed with the patient and her family members. I spoke with Dr. Ibrahim, her nurse sitter. He recommended admission for observation, nuclear stress test tomorrow morning. He reported the patient could stay at [facility]. I then spoke with Dr. Kaur who accepted the patient for admission. She was given aspirin. Differential Diagnosis Differential Diagnosis: Chest pain, STEMI, NSTEMI, a-fib. Medical Records Medical records reviewed: Yes I reviewed the patient's medical records Lab Data Lab results reviewed: Yes I reviewed the patient's lab results Labs: Lab Results 12/13/23 12/13/23 Range/Units 11:19 12:35 WBC 7.1 (4.0-11.0) 10^3/uL RBC 4.41 (4.20-5.40) 10^6/uL Hgb 11.7 L (12.0-16.0) g/dL Hct 38.5 (36.0-48.0) % MCV 87.3 (81.0-99.0) fL MCH 26.5 L (26.7-34.0) pg MCHC 30.4 (29.9-35.2) g/dL RDW 16.7 H (11.0-15.0) % Plt Count 228 (150-450) 10^3/uL MPV 10.2 (9.5-13.5) fL Neut % (Auto) 65.3 (43.0-75.0) % Lymph % (Auto) 27.3 (20.5-60.0) % Sumter % (Auto) 5.4 (1.7-12.0) % Eos % (Auto) 1.4 (0.9-7.0) % Baso % (Auto) 0.3 (0.2-2.0) % Neut # (Auto) 4.6 (1.4-6.5) 10^3/uL Lymph # (Auto) 1.9 (1.2-3.8) 10^3/uL Sumter # (Auto) 0.4 (0.3-0.8) 10^3/uL Eos # (Auto) 0.1 (0.0-0.7) 10^3/uL Baso # (Auto) 0.0 (0.0-0.1) 10^3/uL Abs Immat Gran (auto) 0.02 (0.00-0.03) 10^3/uL Imm/Tot Granulo (auto) 0.3 (0.0-0.5) % PT 10.1 (9.0-11.6) sec INR 0.95 APTT 24.2 (22.3-36.2) sec Sodium 143 (136-145) mmol/L Potassium 3.9 (3.5-5.1) mmol/L Chloride 104 (98-107) mmol/L Carbon Dioxide 21.7 (21.0-32.0) mmol/L Anion Gap 21.2 BUN 17.0 (7.0-18.0) mg/dL Creatinine 0.70 (0.55-1.02) mg/dL Est GFR ( Amer) >60 (>=60) Est GFR (Non-Af Amer) >60 (>=60) BUN/Creatinine Ratio 24.3 Glucose 86 (74-106) mg/dL Calcium 8.5 (8.5-10.1) mg/dL Total Bilirubin 0.7 (0.2-1.0) mg/dL AST 39 H (15-37) U/L ALT 51 (14-59) U/L Alkaline Phosphatase 69 (46-116) U/L Troponin I High Sens 70.1 H* 67.1 H* (4.0-51.3) pg/mL NT-Pro-B Natriuret Pep 342.0 (<=900.0) pg/mL Total Protein 6.8 (6.4-8.2) g/dL Albumin 3.0 L (3.4-5.0) g/dL Globulin 3.8 g/dL Albumin/Globulin Ratio 0.8 Lipase 36.0 (16.0-77.0) U/L Free T4 0.75 L (0.76-1.46) ng/dL TSH & Free T4 Interp 10.110 H (0.358-3.740) uIU/mL Imaging Data Chest x-ray: Attestation: I have reviewed the pertinent imaging results. Radiologist's impression: ITS Impressions Chest X-Ray 12/13/23 11:18 IMPRESSION: No acute cardiopulmonary abnormality. Electronically authenticated by: YOSHI HESS Date: 12/13/2023 12:04 ECG Data Attestation: ?I have reviewed the pertinent ECG results. (EKG #1 EKG interpretation. Irregular irregular rhythm, intermittent P waves noted, QTc of 438, no acute ST elevation, normal axis deviation. This is EKG #1) Interpretation: EKG #2 was reviewed by the attending physician. It showed a-fib at a rate of 51. QRS duration 92 ms, QTc 420 ms. Discharge Plan Discharge Chief Complaint: Chest Pain Clinical Impression: Chest pain Qualifiers: Chest pain type: unspecified Qualified Code(s): R07.9 - Chest pain, unspecified Patient Disposition: Admitted as Observation Time of Disposition Decision: 14:36 Condition: Good Discharge Date/Time: 12/13/23 15:22
--- NOTE | 2023-12-13 11:22 | PC.NURSE ---
patient reports she had a heart ablation last week for issue with svt that converted to a fib. patient had this done with Dr. Jacob at [facility]. patient states that there was talks of a pace maker but then i had one normal ekg so they sent me home. patient began having chest pressure, dizziness and nausea 30 min prior to arrival while driving.
[2023-12-13 11:36] LABS: Basophils Percent Auto 0.3 % (0.2-2.0); Eosinophils Absolute Auto 0.1 10^3/uL (0.0-0.7); Eosinophils Percent Auto 1.4 % (0.9-7.0); Hematocrit 38.5 % (36.0-48.0); Hemoglobin 11.7 g/dL (12.0-16.0); Immature Granulocytes Abs Auto 0.02 10^3/uL (0.00-0.03); Immature Granulocytes Pct Auto 0.3 % (0.0-0.5); Lymphocytes Absolute Auto 1.9 10^3/uL (1.2-3.8); Lymphocytes Percent Auto 27.3 % (20.5-60.0); Mean Corpuscular HGB Conc 30.4 g/dL (29.9-35.2); Mean Corpuscular Hemoglobin 26.5 pg (26.7-34.0); Mean Corpuscular Volume 87.3 fL (81.0-99.0); Mean Platelet Volume 10.2 fL (9.5-13.5); Monocytes Absolute Auto 0.4 10^3/uL (0.3-0.8); Monocytes Percent Auto 5.4 % (1.7-12.0); Neutrophils Absolute Auto 4.6 10^3/uL (1.4-6.5); Neutrophils Percent Auto 65.3 % (43.0-75.0); Platelet Count 228 10^3/uL (150-450); Red Blood Count 4.41 10^6/uL (4.20-5.40); Red Cell Distribution Width 16.7 % (11.0-15.0); White Blood Count 7.1 10^3/uL (4.0-11.0)
[2023-12-13] MEDS: 0.9 % SODIUM CHLORIDE 1,000 ML 1000 ML IV (11:36)
[2023-12-13] MEDS: ASPIRIN 81 MG TAB.CHEW 162 MG PO (11:36)
[2023-12-13 11:45] LABS: INR 0.95; Partial Thromboplastin Time 24.2 sec (22.3-36.2); Prothrombin Time 10.1 sec (9.0-11.6)
[2023-12-13 11:53] LABS: Anion Gap 21.2
[2023-12-13 11:58] LABS: Alanine Aminotransferase 51 U/L (14-59); Albumin Globulin Ratio 0.8; Alkaline Phosphatase 69 U/L (46-116); Aspartate Amino Transferase 39 U/L (15-37); BUN Creatinine Ratio 24.3; Bilirubin Total 0.7 mg/dL (0.2-1.0); Calcium 8.5 mg/dL (8.5-10.1); Carbon Dioxide 21.7 mmol/L (21.0-32.0); Chloride 104 mmol/L (98-107); Estimated GFR (African America >60 (>=60); Estimated GFR (Non-African Ame >60 (>=60); Globulin 3.8 g/dL; Glucose 86 mg/dL (74-106); Potassium 3.9 mmol/L (3.5-5.1); Sodium 143 mmol/L (136-145); Total Protein 6.8 g/dL (6.4-8.2)
[2023-12-13 12:10] LABS: Troponin I High Sensitivity 70.1 pg/mL (4.0-51.3)
[2023-12-13 13:24] LABS: Free T4 0.75 ng/dL (0.76-1.46)
[2023-12-13 13:35] LABS: Troponin I High Sensitivity 67.1 pg/mL (4.0-51.3)
--- NOTE | 2023-12-13 13:57 | ECG_ITS ---
[facility] Test Date: 2023-12-13 Pat Name: YARI ALSTON Department: Room: - Gender: Female Front Office Medical Assistant: : 1965 Requested By: MIGNON BOWERS Order Number: [id number] Reading MD: UMESH ARCE Measurements Intervals Hecker Rate: 51 P: -[id number] WI: -[id number] QRS: -12 QRSD: 92 T: 7 QT: 444 QTc: 420 Interpretive Statements Undetermined rhythm (possible supraventricular rhythm) Low voltage across the precordium 9150 abnormal ECG Electronically Signed On 12-13-2023 22:51:43 EDT by UMESH ARCE
--- NOTE | 2023-12-13 15:16 | PC.NURSE ---
report given to IFRAH Molina. Patient stable at time of handoff. patient on tele 15. patient taken to floor by Mercedes RN
--- NOTE | 2023-12-13 15:31 | P.HP_ITS ---
<Statement entered by Jose Daniel Kaur MD - 12/13/23 18:10> Patient not personally seen but seen by SOAP SLABBER. Chart reviewed and agree with assessment and plan below. Presented with chest pain and recent history of afib after cardiversion for SVT.. Troponin slightly elevated and ER discussed with cardiology who recommended stress test. Will check treadmill cardiolyte stress test Diagnosis: 1. Chest pain 2. SVT 3. Hypothyroidism HPI H&P: HPI History of Present Illness Chief complaint: CHEST PAIN Narrative: 12/13/23 [id number] This is a 58-year-old female patient with a relatively benign past medical history except for hypertension hyperlipidemia, hypothyroidism, and persistent SVT s/p ablation on 12/08/[address] Ibrahim at [facility], with subsequent A-fib postprocedure. The patient's A-fib resolved prior to discharge but she has struggled with paroxysmal A-fib ever since. She was driving in her car today and began to feel my heart racing and felt like she was going to pass out from dizziness. She also reports chest tightness and heaviness. She reported to the ED for further evaluation. Workup in the ED revealed mildly elevated troponins that remained flat on repeat (78, 67). An elevated TSH (10.11) and low free T4 (0.75). An EKG revealed an indeterminate rhythm that was rate controlled in the 60s and frequent SVT premature complexes. Patient's case was discussed by the ED provider with Dr. Ibrahim, her outpatient broaching machine operator. He recommended admission for observation and a nuclear stress test be obtained in the morning. At the time of my exam the patient is resting comfortably in bed on the MedSurg floor. She denies any sensation of racing heart or dizziness at this time but continues to feel mild chest heaviness. Her current rhythm at this time appears to be junctional bradycardia 58 but is still mostly indeterminate. The patient will be n.p.o. at midnight for a nuc med stress test in the morning. We plan to consult cardiology as well to evaluate her rhythm and assist with possible adjustments of her flecainide dosing. Opioid HPI Opioid Management Most Recent Opioid Data: Last Pain Scale 9 08/26/23 18:51 Last ORT Total Score 0 12/13/23 16:43 Last ORT Risk Category Low Risk 12/13/23 16:43 Review of Systems ROS Status of ROS 10 or more systems reviewed and unremark able except as noted in history and below [facility] Medical History (Updated 12/13/23 @ 16:50 by Supriya Lino NP) Hypothyroid ?E03.9 - Hypothyroidism, unspecified (ICD-10) SVT (supraventricular tachycardia) ?I47.10 - Supraventricular tachycardia, unspecified (ICD-10) Surgical History (Updated 12/13/23 @ 11:27 by Tiffany Fermin) H/O abdominal surgery ?Z98.890 - Other specified postprocedural states (ICD-10) Social History Smoking status: Never smoker Highest level of school completed/degree received: Bachelor's degree Do you think of yourself as: straight/heterosexual Gender Identity: female Meds Home Medications and Allergies Home Medications ?Medication ?Instructions ?Recorded ?Confirmed ?Type aspirin 81 mg tablet,delayed 81 mg PO DAILY 12/18/22 12/13/23 History release (Adult Aspirin Regimen) levothyroxine 200 mcg capsule 200 mcg PO DAILY 12/18/22 12/13/23 History multivitamin 1 tab PO DAILY 12/18/22 12/13/23 History pravastatin 20 mg tablet 20 mg PO DAILY 12/18/22 12/13/23 History flecainide 100 mg tablet 100 mg PO .AMHS 12/13/23 12/13/23 History Allergies Allergy/AdvReac Type Severity Reaction Status Date / Time cephalexin [From Keflex] Allergy Mild itching Verified 08/26/23 18:17 codeine Allergy Mild Anaphylaxis Verified 08/26/23 18:17 tramadol AdvReac Mild Hallucinati Verified 08/26/23 18:04 ng Exam Constitutional Vital Signs, click to edit/add: Last Vital Signs Temp 97.6 F 12/13/23 11:12 Pulse 57 L 12/13/23 14:50 Resp 13 12/13/23 14:50 BP 107/83 12/13/23 14:31 Pulse Ox 98 12/13/23 14:50 O2 Del Method Room Air 12/13/23 11:12 Common normals: no apparent distress, oriented x3, alert and well nourished General appearance: cooperative Orientation/consciousness: Yes awake HENMT Common normals: normocephalic, head/scalp atraumatic, hearing grossly normal bilaterally, external nose normal and moist oral mucous membranes Eye Common normals: PERRL, EOMs intact bilaterally, conjunctivae normal and no scleral icterus Alignment: alignment normal Eyelid: eyelids normal Neck & C-Spine Common normals: full ROM, supple and no JVD Chest Common normals: inspection of chest normal Chest: symmetrical chest wall rise Respiratory Common normals: normal respiratory effort, no retractions, no use of accessory muscles and clear to auscultation bilaterally Effort & inspection: able to speak in complete sentences Cardio Common normals: no JVD, S1 normal heart sound, S2 normal heart sound, no gallops, no clicks, no murmurs, no rub and peripheral pulses 2+ throughout Rate: bradycardic (Mild - 58 bpm) Rhythm: abnormal rhythm irregularly irregular (Junctional on tele - P waves following QRS) GI Common normals: Normal to inspection, nondistended, normoactive bowel sounds p resent, soft to palpation, non-tender, no hepatosplenomegaly, no masses and no bruits Bladder/kidney exam: bladder normal to palpation Back & Pelvis Common normals: thoracic and lumbar spine normal to inspection Extremity Common normals: normal capillary refill and no pedal edema General: normal exam except as noted; no clubbing and no cyanosis Neuro Callao Coma Scale: GCS not evaluated Common normals: CN's II-XII intact bilaterally, moves all extremities, no focal motor deficits and no sensory deficits noted Speech: speech normal Motor exam: strength 5/5 throughout Psych Common normals: mental status grossly normal, thought process normal, affect normal and activity/motor behavior normal Results Labs Labs: Short CBC 12/13/23 Range/Units 11:19 WBC 7.1 (4.0-11.0) 10^3/uL Hgb 11.7 L (12.0-16.0) g/dL Hct 38.5 (36.0-48.0) % Plt Count 228 (150-450) 10^3/uL BMP 12/13/23 11:19 Sodium 143 Potassium 3.9 Chloride 104 Carbon Dioxide 21.7 BUN 17.0 Creatinine 0.70 Glucose 86 Calcium 8.5 Liver Function 12/13/23 Range/Units 11:19 Total Bilirubin 0.7 (0.2-1.0) mg/dL AST 39 H (15-37) U/L ALT 51 (14-59) U/L Alkaline Phosphatase 69 (46-116) U/L Albumin 3.0 L (3.4-5.0) g/dL Pulse Oximetry Attestation: I have reviewed the pertinent pulse oximetry results. Assessment and Plan Assessment and Plan (1) Chest pain: Assessment and Plan: Acute * Adm observation * Chest tightness/heaviness associated w/ racing HB and dizziness * Mild chest heaviness persists, but no true chest pain at this time * Trop elevated but flat x 2 - 70, 67 * Serial trop q3h x 2 more * Tele monitoring * rhythm is indeterminate on EKG - a-fib vs SVT vs Junctional * Monitor for possible paroxysmal a-fib w/ RVR * Nuc med stress test in AM - NPO after midnight * Consult cardiology - for assistance w/ possible flecainide dosing changes vs assessment for pacemaker placement (Dr Ibrahim has already discussed this possibility w/ the pt after her ablation). * Likely d/c in AM pending cardiac work up result Qualifiers: Chest pain type: unspecified Qualified Code(s): R07.9 - Chest pain, unspecified (2) Hypothyroid: Assessment and Plan: Chronic * TSH elevated in ED - 10.11 * FT4 low in ED - 0.75 * Pt has been on levothyroxine 112 mcgs for almost 1 yr - ran out of medication 2 days ago * likely subtherapeutic * Increase levothyroxine dosing to 125 mcg - HR has been well controlled (mildly thomas) but irregular since arrival * Consider Holter monitor at d/c to monitor for tachy rhythms w/ increased levothyroxine dosing (3) SVT (supraventricular tachycardia): Assessment and Plan: Chronic * Long hx of SVT * s/p ablation on 12/08/23 * Subsequent a-fib post ablation that resolved prior to discharge * Pt takes flecainide daily * Mild bradycardia since arrival * c/s cardiology for assistance w/ possible flecainide dosing changes
[2023-12-13] MEDS: ENOXAPARIN SODIUM 40 MG/0.4 ML SYRINGE SUBQ (17:25)
[2023-12-13 19:19] LABS: Troponin I High Sensitivity 60.9 pg/mL (4.0-51.3)
[2023-12-13] MEDS: FLECAINIDE ACETATE 50 MG TABLET 100 MG PO (21:43)
[2023-12-13] MEDS: ATORVASTATIN CALCIUM 10 MG TABLET PO (21:44)
[2023-12-13 23:31] LABS: Troponin I High Sensitivity 52.2 pg/mL (4.0-51.3)
[2023-12-14] VITALS (12 sets, daily range): BP systolic 121–127; BP diastolic 75–82; PULSE 49–81; TEMP 36.3–36.5; O2SAT 94–96
[2023-12-14 05:55] LABS: Basophils Percent Auto 0.5 % (0.2-2.0); Eosinophils Absolute Auto 0.1 10^3/uL (0.0-0.7); Eosinophils Percent Auto 1.9 % (0.9-7.0); Hematocrit 33.4 % (36.0-48.0); Hemoglobin 10.2 g/dL (12.0-16.0); Lymphocytes Absolute Auto 1.9 10^3/uL (1.2-3.8); Lymphocytes Percent Auto 45.4 % (20.5-60.0); Mean Corpuscular HGB Conc 30.5 g/dL (29.9-35.2); Mean Corpuscular Volume 85.2 fL (81.0-99.0); Mean Platelet Volume 11.1 fL (9.5-13.5); Monocytes Absolute Auto 0.3 10^3/uL (0.3-0.8); Monocytes Percent Auto 6.5 % (1.7-12.0); Neutrophils Absolute Auto 1.9 10^3/uL (1.4-6.5); Neutrophils Percent Auto 45.7 % (43.0-75.0); Platelet Count 216 10^3/uL (150-450); Red Blood Count 3.92 10^6/uL (4.20-5.40); Red Cell Distribution Width 16.7 % (11.0-15.0); White Blood Count 4.2 10^3/uL (4.0-11.0)
--- NOTE | 2023-12-14 06:15 | NM_ITS ---
Patient Name: YARI ALSTON MR#: [id number] : 1965 Exam Date: 12/14/2023 Ordering Doctor: DR ONEIL VAZQUEZ . RADIOLOGY REPORT PROCEDURE: NM JIMI PERF SPECT REST STR COMPARISON: None. INDICATIONS: chest pain TECHNIQUE: Exam Description: Stress/Rest one day protocol gated SPECT Rest Imagin.0 mCi Tc-99m Cardiolite IV on 12/14/2023 Stress Imaging 31.0 mCi Tc-99m Cardiolite IV on 12/14/2023 Exercise Protocol: 0.4 mg Lexiscan given IV Heart Rate (bpm): Rest: 67 Max: 93 PMHR: 57 Blood Pressure: Rest: 120/72 Max: 126/80 Symptoms: Rest and peak stress ECG findings were pending and the exercise portion of the study was pending per attending physician Dr. Davis . For more details please see separate cardiac stress test report. FINDINGS: QUALITY OF STUDY: Good. PERFUSION DEFECT: None. LOCATION: N/A SIZE: N/A. SEVERITY: N/A. TYPE: N/A. WALL MOTION: Normal. LV SIZE: Normal. 95 mL. TID / TCD: None; 1.2 LVEF: Normal. Calculated EF 60%. SUMMARY: Myocardial perfusion imaging study is NORMAL. CONCLUSION: 1. Normal myocardial perfusion scan with no reversible ischemia 2. Pending exercise test results Dictated by: Christ Hunter MD on 12/14/2023 at 13:49 Approved by: Christ Hunter MD on 12/14/2023 at 13:50
[2023-12-14 06:23] LABS: Alanine Aminotransferase 47 U/L (14-59); Albumin Globulin Ratio 0.8; Albumin Level 2.7 g/dL (3.4-5.0); Alkaline Phosphatase 61 U/L (46-116); Anion Gap 11.5; Aspartate Amino Transferase 27 U/L (15-37); Bilirubin Total 0.5 mg/dL (0.2-1.0); Calcium 8.4 mg/dL (8.5-10.1); Carbon Dioxide 25.9 mmol/L (21.0-32.0); Chloride 110 mmol/L (98-107); Estimated GFR (African America >60 (>=60); Estimated GFR (Non-African Ame >60 (>=60); Globulin 3.4 g/dL; Glucose 88 mg/dL (74-106); Potassium 4.4 mmol/L (3.5-5.1); Sodium 143 mmol/L (136-145); Total Protein 6.1 g/dL (6.4-8.2); Troponin I High Sensitivity 48.8 pg/mL (4.0-51.3)
[2023-12-14] MEDS: REGADENOSON 0.4 MG/5 ML SYRINGE 0.400000000000000022 MG IV (09:25)
[2023-12-14] MEDS: FLECAINIDE ACETATE 50 MG TABLET 100 MG PO (09:42)
[2023-12-14] MEDS: ENOXAPARIN SODIUM 40 MG/0.4 ML SYRINGE SUBQ (09:45)
--- NOTE | 2023-12-14 11:47 | P.DS_ITS ---
<Statement entered by Jose Daniel Kaur MD - 12/14/23 18:29> Patient seen and examined, agree with assessment and plan below. Presented with chest tightness after episode of heart racing. Recent ablation for SVT and developed brief afib after. Troponin elevated but improved on recheck. Cardiology recommended stress test. Not able to acheive heart rate elevation on treadmill test and converted to Lexiscan. Stress test nondiagnostic with T wave inversion and reproducible pain. Cardiolyte images negative for reproducible ischemia. Patient with occasional palpitations but normal telemetry. Discharge home and will apply 7 day Holter. Follow up with cardiology. Diagnosis: 1. Chest pain 2. SVT 3. Hypothyroidism DS: Providers Provider Date of admission: 12/13/23 15:12 Primary care physician: MIGNON LYONS Consults: 12/13/23 16:18 Consult to Cardiology Routine Reason for consultation: Indeterm rhythm, possible junctional w/ paroxs Afib; chest pressure Discharging clinician: Supriya Lino DS: Diagnosis Discharge Diagnosis (1) Chest pain: Qualifiers: Chest pain type: unspecified Qualified Code(s): R07.9 - Chest pain, unspecified (2) Heart palpitations: (3) Hypothyroid: (4) SVT (supraventricular tachycardia): DS: Summary Hospital Course Hospital Course: The patient was admitted with paroxysmal palpitations concerning for A-fib versus SVT after recent cardiac ablation for SVT and post ablation A-fib that resolved. She also complained of chest heaviness at the time of admission and so cardiac evaluation was indicated. Serial troponins were slightly elevated additionally but remained flat and then trended down to normal on repeat studies. A TSH was notably elevated in the ED and her home thyroid dosing was increased accordingly. The patient was prescribed flecainide which we had thought she was taking as prescribed. Apparently she filled the prescription but forgot to start taking it and is never taken any doses at home. During this admission her heart was mostly in sinus rhythm but there were episodes that appeared junctional but with a stable rate of high 50s to 70s. The patient's chest discomfort and palpitations have completely resolved and she has experienced no further episodes of dizziness. Stress test was obtained on the day of discharge and this was unremarkable without evidence of reversible ischemia. She is being discharged home in stable condition. We have ordered a Holter monitor for 7 days after discharge to continue to monitor for arrhythmias (results to be sent to cardiology). She should follow-up with her PCP within 5 to 7 days and with cardiology within 1 to 2 weeks. She should discuss with cardiology if the flecainide medication should be started as previously prescribed, but it has been held at discharge from this hospitalization. Time Spent with Patient Time attestation: Total time spent providing and/or coordinating discharge services: Time spent: greater than 30 minutes Specific discharge activities: Physical exam, discussion of discharge plan, questions answered. Exam Constitutional Vital Signs, click to edit/add: Last Vital Signs Temp 97.4 F L 12/14/23 05:18 Pulse 81 12/14/23 10:19 Resp 18 12/14/23 08:00 BP 124/82 12/14/23 09:42 Pulse Ox 94 L 12/14/23 05:18 O2 Del Method Room Air 12/14/23 05:18 Common normals: no apparent distress, oriented x3 and alert General appearance: cooperative Orientation/consciousness: Yes awake HENMT Common normals: normocephalic and head/scalp atraumatic Eye Common normals: PERRL, EOMs intact bilaterally, conjunctivae normal and no scleral icterus Neck & C-Spine Common normals: no JVD Respiratory Common normals: normal respiratory effort, no use of accessory muscles and clear to auscultation bilaterally Effort & inspection: able to speak in complete sentences and symmetric chest movement Cardio Common normals: no JVD, regular rate, regular rhythm, S1 normal heart sound, S2 normal heart sound, no murmurs and peripheral pulses 2+ throughout GI Common normals: Normal to inspection, nondistended, normoactive bowel sounds present, soft to palpation and non-tender Bladder/kidney exam: bladder normal to palpation Extremity Common normals: normal to inspection, full ROM, normal capillary refill and no pedal edema General: no clubbing and no cyanosis Neuro Common normals: moves all extremities, no focal motor deficits and no sensory deficits noted Speech: speech normal Psych Common normals: mental status grossly normal and activity/motor behavior normal DS: Data Data Completed and Pending Labs on day of discharge: Labs from last 24 hours 12/14/23 12/13/23 12/13/23 04:51 23:06 18:18 WBC 4.2 RBC 3.92 L Hgb 10.2 L Hct 33.4 L MCV 85.2 MCH 26.0 L MCHC 30.5 RDW 16.7 H Plt Count 216 MPV 11.1 Neut % (Auto) 45.7 Lymph % (Auto) 45.4 Weld % (Auto) 6.5 Eos % (Auto) 1.9 Baso % (Auto) 0.5 Neut # (Auto) 1.9 Lymph # (Auto) 1.9 Weld # (Auto) 0.3 Eos # (Auto) 0.1 Baso # (Auto) 0.0 Abs Immat Gran (auto) 0.00 Imm/Tot Granulo (auto) 0.0 PT INR APTT Sodium 143 Potassium 4.4 Chloride 110 H Carbon Dioxide 25.9 Anion Gap 11.5 BUN 15.0 Creatinine 0.60 Est GFR ( Amer) >60 Est GFR (Non-Af Amer) >60 BUN/Creatinine Ratio 25.0 Glucose 88 Calcium 8.4 L Total Bilirubin 0.5 AST 27 ALT 47 Alkaline Phosphatase 61 Troponin I High Sens 48.8 52.2 H* 60.9 H* NT-Pro-B Natriuret Pep Total Protein 6.1 L Albumin 2.7 L Globulin 3.4 Albumin/Globulin Ratio 0.8 Lipase Free T4 TSH & Free T4 Interp 12/13/23 12/13/23 12/13/23 15:44 12:35 11:19 WBC RBC Hgb Hct MCV MCH MCHC RDW Plt Count MPV Neut % (Auto) Lymph % (Auto) [place]eld % (Auto) Eos % (Auto) Baso % (Auto) Neut # (Auto) Lymph # (Auto) Weld # (Auto) Eos # (Auto) Baso # (Auto) Abs Immat Gran (auto) Imm/Tot Granulo (auto) PT 10.1 INR 0.95 APTT 24.2 Sodium 143 Potassium 3.9 Chloride 104 Carbon Dioxide 21.7 Anion Gap 21.2 BUN 17.0 Creatinine 0.70 Est GFR ( Amer) >60 Est GFR (Non-Af Amer) >60 BUN/Creatinine Ratio 24.3 Glucose 86 Calcium 8.5 Total Bilirubin 0.7 AST 39 H ALT 51 Alkaline Phosphatase 69 Troponin I High Sens 60.0 H* 67.1 H* 70.1 H* NT-Pro-B Natriuret Pep 342.0 Total Protein 6.8 Albumin 3.0 L Globulin 3.8 Albumin/Globulin Ratio 0.8 Lipase 36.0 Free T4 0.75 L TSH & Free T4 Interp 10.110 H Discharge Plan Discharge Disposition: Home, Self-Care Condition: Good Discharge Medications: New levothyroxine 125 mcg capsule 125 mcg PO DAILY Qty: 30 0RF Continued aspirin [Adult Aspirin Regimen] 81 mg tablet,delayed release (DR/EC) 81 mg PO DAILY Hold Instructions: surgey mariano'd multivitamin Tablet 1 tab PO DAILY pravastatin 20 mg tablet 20 mg PO QPM Discontinued levothyroxine 112 mcg tablet 112 mcg PO QPM Print Language: Panamanian Activity Restrictions/Additional Instructions: - Discuss with cardiology if you should be taking flecainide - Recommend repeat TSH in 6-8 weeks Forms: Portal Instructions Follow Up Appointments: Wed. December 16 @ 11:30am with Dr. Lyons [phone] December 27 @ 3:20pm with [place] [facility] at [facility] [phone]
--- NOTE | 2023-12-14 11:50 | CM.NOTE ---
Rounds made with Dr. Kaur. Potential discharge today after testing. Lori agreeable to plan.
--- NOTE | 2023-12-14 15:18 | SWNOTE1 ---
Medicare Outpatient Observation Notice reviewed and discussed with patient. Pt. verbalized understanding and signed the form. Original given to patient and copy placed in patient?s chart.
--- NOTE | 2023-12-14 16:11 | ECG_ITS ---
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
--- NOTE | 2023-12-14 17:32 | PM.STRESS ---
Stress Test Stress Test Allergies Allergy/AdvReac Type Severity Reaction Status Date / Time cephalexin [From Keflex] Allergy Mild itching Verified 08/26/23 18:17 codeine Allergy Mild Anaphylaxis Verified 08/26/23 18:17 tramadol AdvReac Mild Hallucinati Verified 08/26/23 18:04 ng Requesting physician: Jose Daniel Kaur Procedure: Lexiscan Cardiolite stress test General Information: Reason for Stress Test: Chest pain Cardiac History and Risk Factors: SVT/afib. Mother has CHF. Resting 12 - Lead Electrocardiogram: Rate & rhythm: Sinus bradycardia at a rate of 57. [place]: Normal T-waves: Normal ST-segments: Normal orientation 1st-degree AV block Stress Test: Protocol: Chaz protocol was initiated, but due to inability to reach target heart rate, the exercise component was unable to achieve target heart rate and therefore canceled.? Testing was changed to Lexiscan protocol, with injection of 0.4mg Lexiscan IV push followed by Cardiolite. Blood pressure: Initial: 120/72, Maximum: 126/80 Rate & rhythm: Patient remained in sinus rhythm during the exercise and recovery portions of the study.? The maximum heart rate was 93, which was 57% of the maximum predicted heart rate. PVCs were noted. ST-segments & T-waves: There were T-wave changes in aVL (inverted) and no ST-segment changes when compared to the baseline EKG. Patient response/symptoms: There was reproducible chest pain during the failed exercise testing. Interpretation: This is a non-diagnostic stress test with reproducible chest pain during exercise which did not reach target heart rate, along with inversions of T-waves in lead aVL. Cardiolite imaging interpretation will be reported separately. Clinical correlation required.?
== END 2023-12-14 18:40 | disposition home or self-care (01) ==
LOC: ER 14:37 → MS 15:20
PROVIDERS: Nurse Practitioner; Registered Nurse; Admitting Provider Family Medicine; Emergency Provider Emergency Medicine; PCP Family Medicine; Visit Provider Family Medicine
DX: R07.9 Chest pain, unspecified (principal); E03.9 Hypothyroidism, unspecified; I47.10 Supraventricular tachycardia, unspecified; R00.2 Palpitations; I10 Essential (primary) hypertension; E78.5 Hyperlipidemia, unspecified; Z79.890 Hormone replacement therapy
CPT/HCPCS: 36415; 71045; 78452; 80053; 83690; 83880; 84439; 84443; 84484; 85025; 85610; 85730; 93005; 93017; 93242; 96372; 99285; A9500; G0378; J2785

== ENCOUNTER 2024-02-04 15:14 | Outpatient (OUT) | payer MEDICARE, OTHER, MEDICAID, SELFPAY ==
[2024-02-04 15:39] LABS: Basophils Percent Auto 0.5 % (0.2-2.0); Eosinophils Percent Auto 0.7 % (0.9-7.0); Hemoglobin 11.2 g/dL (12.0-16.0); Immature Granulocytes Abs Auto 0.01 10^3/uL (0.00-0.03); Immature Granulocytes Pct Auto 0.2 % (0.0-0.5); Lymphocytes Absolute Auto 1.2 10^3/uL (1.2-3.8); Lymphocytes Percent Auto 18.7 % (20.5-60.0); Mean Corpuscular HGB Conc 31.1 g/dL (29.9-35.2); Mean Corpuscular Hemoglobin 26.5 pg (26.7-34.0); Mean Corpuscular Volume 85.3 fL (81.0-99.0); Mean Platelet Volume 10.1 fL (9.5-13.5); Monocytes Absolute Auto 0.2 10^3/uL (0.3-0.8); Monocytes Percent Auto 2.4 % (1.7-12.0); Neutrophils Absolute Auto 4.8 10^3/uL (1.4-6.5); Neutrophils Percent Auto 77.5 % (43.0-75.0); Platelet Count 218 10^3/uL (150-450); Red Blood Count 4.22 10^6/uL (4.20-5.40); Red Cell Distribution Width 15.5 % (11.0-15.0); White Blood Count 6.2 10^3/uL (4.0-11.0)
[2024-02-04 15:41] LABS: Anion Gap 12.5; BUN Creatinine Ratio 25.3; Carbon Dioxide 27.4 mmol/L (21.0-32.0); Chloride 106 mmol/L (98-107); Estimated GFR (African America >60 (>=60); Estimated GFR (Non-African Ame >60 (>=60); Glucose 184 mg/dL (74-106); Potassium 3.9 mmol/L (3.5-5.1); Sodium 142 mmol/L (136-145)
== END 2024-02-04 15:15 | disposition home or self-care (01) ==
LOC: LAB 15:18
PROVIDERS: PCP Family Medicine; Visit Provider Internal Medicine Cardiovascular Disease
DX: I49.5 Sick sinus syndrome (principal)
CPT/HCPCS: 36415; 80048; 85025

== ENCOUNTER 2024-02-08 11:39 | Outpatient (OUT) | payer MEDICARE, OTHER, MEDICAID, SELFPAY ==
--- NOTE | 2024-02-08 11:52 | XR_ITS ---
The [address] [address] Patient Name: YARI ALSTON MRN: [id number] date: 1965 Sex: F Assigned Patient Location: RAD Current Patient Location: RAD Accession/Order Number: [id number] Exam Date: 02/08/2024 11:48 Report Date: 02/08/2024 12:26 At the request of: SOLOMON NEAL Procedure: XR chest 2V PROCEDURE: XR chest 2V DATE: 02/08/2024 10:48 AM CDT COMPARISONS: 12/13/2023 CLINICAL INDICATION: 58 years Female Supraventricular Tachycardia I47.10 FINDINGS: The cardiomediastinal silhouette and pulmonary vasculature are within normal limits. Electronic cardiac device has been placed in the interval. It appears to be in good position based on today's chest radiograph. The lungs are clear. There is no evidence of pleural effusion or pneumothorax. The lateral view is limited somewhat as it is not a true lateral. XR/XR chest 2V IMPRESSION: [Heart cardiac device is now in place. Chest radiograph is within normal limits. Electronically authenticated by: CHRISTIANO COPELAND Date: 02/08/2024 12:26
== END 2024-02-08 11:40 | disposition home or self-care (01) ==
LOC: RAD 11:40
PROVIDERS: PCP Family Medicine; Visit Provider Internal Medicine Cardiovascular Disease
DX: I47.10 Supraventricular tachycardia, unspecified (principal); Z95.9 Presence of cardiac and vascular implant and graft, unspecified
CPT/HCPCS: 71046

== ENCOUNTER 2024-02-14 10:56 | Emergency (ER) | payer MEDICARE, OTHER, MEDICAID, SELFPAY ==
[2024-02-14 10:59] VITALS: BP 145/80; PULSE 65; TEMP 36.5; O2SAT 98; BMI 26.6
--- NOTE | 2024-02-14 11:25 | ED.EXTPRO1 ---
HPI - Extremity Problem General Chief complaint: Extremity Problem, Nontraumatic Stated complaint: POST OPERATIVE COMPLICATION Time Seen by Provider: 02/14/24 11:13 History of Present Illness HPI Narrative: 58-year-old female presents for left shoulder pain. It started hurting this time 2 days ago without any trauma. She has a history of a left rotator cuff injury and was going to have surgery but that had to be put off because she had to have a pacemaker placed which was placed 1 week ago today. 2 days ago her shoulder started hurting and she cannot lift it up now. The pain is moderate to severe. Related Data Home Medications ?Medication ?Instructions ?Recorded ?Confirmed aspirin 81 mg tablet,delayed 81 mg PO DAILY 12/18/22 12/13/23 release (Adult Aspirin Regimen) multivitamin 1 tab PO DAILY 12/18/22 12/13/23 pravastatin 20 mg tablet 20 mg PO QPM 12/18/22 12/14/23 Previous Rx's ?Medication ?Instructions ?Recorded levothyroxine 125 mcg capsule 125 mcg PO DAILY #30 caps 12/14/23 tramadol 50 mg tablet 50 mg PO Q8H PRN pain #20 tabs 02/14/24 Allergies Allergy/AdvReac Type Severity Reaction Status Date / Time cephalexin [From Keflex] Allergy Mild itching Verified 02/14/24 10:59 codeine Allergy Mild Anaphylaxis Verified 02/14/24 10:59 tramadol AdvReac Mild Hallucinati Verified 02/14/24 10:59 ng Review of Systems ROS Narrative A ten point review of systems is negative except as noted above. [facility] History (Updated 02/14/24 @ 12:44 by Magan Gómez MD) Hypothyroid ?E03.9 - Hypothyroidism, unspecified (ICD-10) SVT (supraventricular tachycardia) ?I47.10 - Supraventricular tachycardia, unspecified (ICD-10) Surgical History (Updated 12/13/23 @ 11:27 by Tiffany Fermin) H/O abdominal surgery ?Z98.890 - Other specified postprocedural states (ICD-10) Social History Smoking status: Never smoker Highest level of school completed/degree received: Bachelor's degree Do you think of yourself as: straight/heterosexual Gender Identity: female Exam Narrative Exam Narrative: Nurses note and vital signs reviewed and patient is not hypoxic. General: The patient appears in no apparent distress. She is holding her left arm at her side with the elbow flexed across her abdomen. Skin: Warm, dry, no pallor noted. There is no rash noted. Head: Normocephalic, atraumatic Eye: Normal conjunctiva, no drainage Ears, Nose, Mouth, and Throat: oral mucosa is moist. Nares patent. Cardiovascular: Regular Rate and Rhythm Respiratory: Patient is in no distress, no accessory muscle use, lungs are clear to auscultation, no wheezing, rales or rhonchi Back: non-tender GI: Soft and nontender Musculoskeletal: Left shoulder is examined. She is very reluctant to move that arm at all. There is no bruise or rash but she seems to have some mild tenderness posteriorly which is where her pain is. Neurological: Awake and alert Psychiatric: Cooperative Constitutional Vital Signs, click to edit/add: Last Vital Signs Temp 97.7 F 02/14/24 10:59 Pulse 65 02/14/24 10:59 Resp 20 02/14/24 10:59 BP 145/80 H 02/14/24 10:59 Pulse Ox 98 02/14/24 10:59 O2 Del Method Room Air 02/14/24 10:59 Course Vital Signs Vital signs: Vital Signs Temperature 97.7 F 02/14/24 10:59 Pulse Rate 65 02/14/24 10:59 Respiratory Rate 20 02/14/24 10:59 Blood Pressure 145/80 H 02/14/24 10:59 Pulse Oximetry 98 02/14/24 10:59 Oxygen Delivery Method Room Air 02/14/24 10:59 Temperature 97.7 F 02/14/24 10:59 Pulse Rate 65 02/14/24 10:59 Respiratory Rate 20 02/14/24 10:59 Blood Pressure 145/80 H 02/14/24 10:59 Pulse Oximetry 98 02/14/24 10:59 Oxygen Delivery Method Room Air 02/14/24 10:59 MDM - Extremity (Nontraumatic) MDM Narrative Medical decision making narrative: My clinical impression is that the patient has rotator cuff injury. She had previously been told that she needs to have surgery for but that was put off because of the pacemaker. She has an appointment with her orthopedist a week from today and she will keep that appointment. We talked about exercises with hanging the arm down and doing circles. She was prescribed Ultram. She was urged to avoid the sling to avoid further issues with frozen shoulder. Treatment diagnosis and follow-up were discussed with the patient. Differential Diagnosis Differential diagnosis: Likely other (Rotator cuff injury, fracture, subluxation, dislocation) Imaging Data Shoulder x-ray: My impression: Shoulder x-ray my interpretation shows calcifications within the tendon area. No acute fracture or dislocation. Discharge Plan Discharge Stand Alone Forms: Portal Instructions Chief Complaint: Extremity Problem, Nontraumatic Clinical Impression: Injury of left rotator cuff Patient Disposition: Home, Self-Care Time of Disposition Decision: 12:44 Condition: Good Mode of Transportation: Private Vehicle Prescriptions / Home Meds: New tramadol 50 mg tablet 50 mg PO Q8H PRN (Reason: pain) Qty: 20 0RF No Action aspirin [Adult Aspirin Regimen] 81 mg tablet,delayed release (DR/EC) 81 mg PO DAILY Hold Instructions: lor quintana'armando multivitamin Tablet 1 tab PO DAILY pravastatin 20 mg tablet 20 mg PO QPM levothyroxine 125 mcg capsule 125 mcg PO DAILY Qty: 30 0RF Print Language: Bahraini Instructions: Rotator Cuff Injury (ED) Additional Instructions: See your orthopedist at your scheduled appointment. Referrals: MIGNON BOWERS [Primary Care Provider] - 1 week
[2024-02-14] MEDS: KETOROLAC TROMETHAMINE 60 MG/2 ML VIAL IM (11:37)
--- NOTE | 2024-02-14 12:25 | XR_ITS ---
The [address] [address] Patient Name: YARI ALSTON MRN: [id number] date: 1965 Sex: F Assigned Patient Location: ER Current Patient Location: ED.MAIN Accession/Order Number: [id number] Exam Date: 02/14/2024 12:20 Report Date: 02/14/2024 12:49 At the request of: ALLEN HUANG Procedure: XR shoulder LT min 2V PROCEDURE: XR shoulder LT min 2V COMPARISON: None. HISTORY: Atraumatic pain FINDINGS: BONES:No acute fracture or dislocation. Clavicular and glenohumeral joints are intact. Calcific density identified along the lateral aspect of the humeral head SOFT TISSUES:Negative. No visible soft tissue swelling. EFFUSION:None visible. OTHER: Bipolar pacemaker projects over the left chest. XR/XR shoulder LT min 2V IMPRESSION: Rotator cuff calcific tendinitis Electronically authenticated by: SHAILESH KAISER Date: 02/14/2024 12:49
[2024-02-14 13:06] VITALS: BP 135/92; PULSE 64; O2SAT 98
== END 2024-02-14 13:07 | disposition home or self-care (01) ==
PROVIDERS: Emergency Provider Emergency Medicine; PCP Family Medicine
DX: S46.002A Unspecified injury of muscle(s) and tendon(s) of the rotator cuff of left shoulder, initial encounter (principal); X58.XXXA Exposure to other specified factors, initial encounter; Z95.0 Presence of cardiac pacemaker
CPT/HCPCS: 73030; 96372; 99284; J1885

== ENCOUNTER 2024-04-06 14:16 | Outpatient (OUT) | payer MEDICARE, OTHER, MEDICAID, SELFPAY ==
--- NOTE | 2024-04-06 14:51 | XR_ITS ---
The [address] [address] Patient Name: YARI ALSTON MRN: [id number] date: 1965 Sex: F Assigned Patient Location: [facility] Current Patient Location: [facility] Accession/Order Number: [id number] Exam Date: 04/06/2024 14:45 Report Date: 04/06/2024 16:18 At the request of: BAN SANON Procedure: XR chest 2V EXAM: XR chest 2V HISTORY: Unspecified Complication Of Cardiac Device COMPARISON: 02/08/2024 TECHNIQUE: Upright PA and lateral chest x-ray FINDINGS: The heart is not enlarged and the vasculature is not distended. The left-sided bipolar pacemaker remains in place. One of the leads appears to be within the right atrium. The position of the other lead is uncertain and is not situated along the floor of the right ventricle. No acute infiltrate, effusion or pneumothorax is identified. Some degenerative changes are seen in the spine. XR/XR chest 2V IMPRESSION: The left-sided pacemaker remains in place in the positions of the leads are unchanged. There is no evidence of a focal infiltrate or overt cardiac decompensation, and the overall appearance of the chest is unchanged. Electronically authenticated by: ELIZABETH RODRIGUEZ Date: 04/06/2024 16:18
== END 2024-04-06 14:17 | disposition home or self-care (01) ==
LOC: LAB 14:17 → RAD 14:18
PROVIDERS: PCP Family Medicine; Visit Provider Nurse Practitioner
DX: T82.9XXD Unspecified complication of cardiac and vascular prosthetic device, implant and graft, subsequent encounter (principal)
CPT/HCPCS: 71046

== ENCOUNTER 2024-05-09 12:13 | Outpatient (OUT) | payer MEDICARE, OTHER, MEDICAID, SELFPAY ==
[2024-05-09 12:34] LABS: Basophils Percent Auto 0.5 % (0.2-2.0); Eosinophils Absolute Auto 0.1 10^3/uL (0.0-0.7); Eosinophils Percent Auto 1.2 % (0.9-7.0); Hematocrit 36.6 % (36.0-48.0); Hemoglobin 11.4 g/dL (12.0-16.0); Immature Granulocytes Abs Auto 0.01 10^3/uL (0.00-0.03); Immature Granulocytes Pct Auto 0.2 % (0.0-0.5); Lymphocytes Absolute Auto 1.5 10^3/uL (1.2-3.8); Lymphocytes Percent Auto 25.3 % (20.5-60.0); Mean Corpuscular HGB Conc 31.1 g/dL (29.9-35.2); Mean Corpuscular Hemoglobin 26.7 pg (26.7-34.0); Mean Corpuscular Volume 85.7 fL (81.0-99.0); Mean Platelet Volume 10.3 fL (9.5-13.5); Monocytes Absolute Auto 0.3 10^3/uL (0.3-0.8); Monocytes Percent Auto 4.9 % (1.7-12.0); Neutrophils Absolute Auto 4.1 10^3/uL (1.4-6.5); Neutrophils Percent Auto 67.9 % (43.0-75.0); Platelet Count 202 10^3/uL (150-450); Red Blood Count 4.27 10^6/uL (4.20-5.40); White Blood Count 6.1 10^3/uL (4.0-11.0)
[2024-05-09 14:31] LABS: Anion Gap 13.1; BUN Creatinine Ratio 20.4; Calcium 9.1 mg/dL (8.5-10.1); Carbon Dioxide 25.7 mmol/L (21.0-32.0); Chloride 109 mmol/L (98-107); Estimated GFR (African America >60 (>=60 mL/min/1.73m^2); Estimated GFR (Non-African Ame 55 (>=60 mL/min/1.73m^2); Glucose 80 mg/dL (74-106); Potassium 3.8 mmol/L (3.5-5.1); Sodium 144 mmol/L (136-145)
== END 2024-05-09 12:14 | disposition home or self-care (01) ==
LOC: LAB 12:15
PROVIDERS: PCP Family Medicine; Visit Provider Orthopaedic Surgery
DX: Z01.812 Encounter for preprocedural laboratory examination (principal); Z01.818 Encounter for other preprocedural examination
CPT/HCPCS: 36415; 80048; 85025

== ENCOUNTER 2024-06-20 12:55 | Outpatient (OUT) | payer MEDICARE, OTHER, MEDICAID, SELFPAY ==
--- NOTE | 2024-06-20 13:00 | CA_ITS ---
Patient Name: YARI ALSTON MR#: [id number] : 1965 Exam Date: 06/20/2024 Ordering Doctor: RANJITH BALES CNP ECHOCARDIOGRAM REPORT PROCEDURE: CA ECHO DOPPLER COMPLETE INDICATIONS: Pulmonary hypertension, RI, pacemaker COMPARISON: None. DESCRIPTION: COMPLETE ECHOCARDIOGRAM Real-time transthoracic echocardiography with 2D, M-mode, spectral and color flow Doppler performed. QUALITY: Technical quality was good. LEFT VENTRICLE: Normal chamber size. Thickened septal wall. LV EF: Global left ventricular systolic function is normal; visually estimated ejection fraction is 55 to 60%. No obvious wall motion abnormalities. DIASTOLIC: Normal diastolic function. ATRIAL SEPTUM: Inadequately seen. LEFT ATRIUM: Mild dilatation. RIGHT ATRIUM: Mild dilatation. RIGHT VENTRICLE: Normal chamber size. Normal systolic function. Pacer wire present. TRICUSPID VALVE: Normal mobility and thickness. No stenosis with trivial regurgitation. Doppler studies reveal mildly (35-45) elevated right sided pressures. RVSP 39 mmHg MITRAL VALVE: Normal mobility and thickness. No evidence of mitral valve stenosis. Mild mitral annular calcification. Trivial mitral regurgitation. AORTIC VALVE: Normal trileaflet appearance. No visible sclerosis. Normal leaflet mobility. No evidence of aortic valve stenosis. No aortic regurgitation. AORTIC ROOT: Normal diameter and appearance. PULMONIC VALVE: Not well visualized. No regurgitation. PERICARDIUM: No evidence of pericardial effusion. IVC: Not well visualized. CONCLUSION: 1. Global left ventricular systolic function is normal; visually estimated ejection fraction is 55 to 60% 2. Normal right ventricular size and systolic function 3. Normal diastolic function 4. Mild biatrial dilatation 5. Mildly elevated right ventricular systolic pressure; RVSP 39 mmHg 6. No significant valvular abnormalities Adult Echocardiography Procedure Report Left Ventricle LVEDD (3.7 - 5.6 cm): 4.45 cm LVESD (2.2 - 4.0 cm): 3.09 cm LVIVS thickness (0.6 - 1.2 cm): 1.14 cm LVPW thickness (0.5 - 1.0 cm): 0.80 cm e': 0.12 m/s E - e': 7.44 LVOT Max Gradient: 2.49 mm[Hg] LVOT Area (cm2): 0.79 m/s Peak Velocity (LVOT): 0.79 m/s Mean Velocity (LVOT): 0.55 m/s LVOT Diameter 2.11 cm Left Atrium LA Volume Index (2D A2C): 37.58 ml/m2 Left Atrium Systolic Dimension: 3.35 cm Mitral Valve MV E to A Ratio: 1.29 Mitral Valve A-Wave Peak Velocity: 0.68 m/s Mitral Valve E-Wave Peak Velocity: 0.88 m/s Right Ventricle Aorta AO Root Diam: 3.53 cm Aortic Valve AoV Area (Peak Demarcus): 2.04 cm2, 2.04 cm2 AoV Area (VTI): 2.34 cm2, 2.34 cm2 Peak Velocity(Antegrade Flow): 1.35 m/s Peak Gradient(Antegrade Flow): 7.27 mm[Hg] Mean Velocity(Antegrade Flow): 0.87 m/s Mean Gradient(Antegrade Flow): 3.54 mm[Hg] Velocity Time Integral: 29.77 cm Tricuspid Valve Peak Velocity (Regurgitant Flow): 2.78 m/s Pulmonic Valve Mean Gradient: 1.57 mm[Hg] Mean Velocity: 0.59 m/s Peak Velocity: 0.84 m/s, 0.73 m/s Peak Gradient: 2.14 mm[Hg], 2.82 mm[Hg] Right Atrium Right Atrium Systolic Pressure: 51.93 ml, 51.93 ml Dictated by: Mica Oneill M.D. on 06/20/2024 at 17:09 Approved by: Mica Oneill M.D. on 06/20/2024 at 17:12
== END 2024-06-20 12:56 | disposition home or self-care (01) ==
LOC: CARD 12:55
PROVIDERS: PCP Family Medicine; Visit Provider Nurse Practitioner Family
DX: I27.20 Pulmonary hypertension, unspecified (principal)
CPT/HCPCS: 93306

== ENCOUNTER 2024-07-19 23:51 | Emergency (ER) | payer MEDICARE, OTHER, MEDICAID, SELFPAY ==
[2024-07-19 23:54] VITALS: BP 156/129; PULSE 67; TEMP 36.8; O2SAT 97; BMI 28.2
--- NOTE | 2024-07-19 23:57 | CT_ITS ---
The [address] [address] Patient Name: YARI ALSTON MRN: [id number] date: 1965 Sex: F Assigned Patient Location: ER Current Patient Location: ER Accession/Order Number: [id number] Exam Date: 07/19/2024 23:59 Report Date: 07/20/2024 01:21 At the request of: CALLIE PARIKH Procedure: CT abdomen pelvis w con CT OF THE ABDOMEN AND PELVIS WITH CONTRAST: 07/19/2024 11:59 PM EST CLINICAL HISTORY: Right lower quadrant pain. 58-year-old female. Previous cholecystectomy and gastric bypass. Gastrectomy. COMPARISONS: None. TECHNIQUE: Thin section axial CT images were obtained from the lung bases to the pubis symphysis. This CT exam was performed using one or more of the following dose reduction techniques: Automated exposure control, adjustment of the mA and/or kV according to patient size, or use of iterative reconstruction technique. Thin section coronal and sagittal images were reconstructed from the axial data set. All images were reviewed and interpreted. CONTRAST: Omnipaque 300, 100 mL IV FINDINGS: LUNG BASES: No consolidation or pleural fluid. GE JUNCTION AND STOMACH: Small sliding-type hiatal hernia. Most of stomach resected gastric bypass changes left upper quadrant. Correlate with surgical history. LIVER: Mild fatty liver infiltration. No hepatic mass or cyst. Normal portal vein enhancement. GALLBLADDER AND BILIARY TREE: Cholecystectomy. There is some mild intrahepatic and extrahepatic bile duct distention likely benign from prior cholecystectomy. Correlate with biliary labs. PANCREAS: Normal. SPLEEN: Normal. ADRENALS: Normal. RIGHT KIDNEY AND URETER: There is delayed right renal nephrogram relative to the left. There is moderate right hydronephrosis and distention of right ureter. This is is an at least partially obstructing and retained calculus within the proximal third right ureter. This measures approximately 4.5 mm. There is additional calcification right hemipelvis in region of right ureter either at right UVJ or just past in the bladder measuring 5 mm. Small 2 mm nonobstructing calcification within lower pole calyx right kidney noted. No right renal mass or cyst. Mild right perinephric stranding. LEFT KIDNEY AND URETER: Negative with no left hydronephrosis or retained intrarenal or ureteral calculus. No left renal mass or cyst. URINARY BLADDER: Grossly unremarkable. PELVIC STRUCTURES: Unremarkable. BOWEL: Postoperative changes of gastric bypass and at least partial gastrectomy. There is a duodenal loop in the right upper quadrant along the inferior margin of left lobe stenosis uniform wall thickening and fluid. Acute duodenitis. This may be the excluded portion of gastric bypass. Correlate with symptoms. There is significant and rather severe compact feces throughout the proximal and mid large bowel and transverse colon. Correlate for fecal impaction and constipation. Mild diverticulosis. No acute colitis. There is no significant diverticulosis. There is no evidence of diverticulitis. APPENDIX: Negative. LYMPH NODES: No pathologically enlarged lymph nodes identified. PERITONEUM: No intraperitoneal free air. No free intraperitoneal fluid. MESENTERY: Unremarkable. RETROPERITONEUM: The retroperitoneum is unremarkable. AORTA: Normal in caliber. BODY WALL: No body wall mass. OSSEOUS STRUCTURES: Osseous demineralization. No fracture or lytic or blastic bone lesion. CT/CT abdomen pelvis w con IMPRESSION: 1. Acute right-sided obstructive uropathy with moderate to severe right hydronephrosis with 4.5 mm calculus within the proximal third right ureter with additional 5 mm in size calculus at right ureterovesical junction or possibly just passing the bladder. Correlate urinalysis and symptoms and follow-up. 2. Gastrectomy and gastric bypass changes. Uniform wall thickening involving short segment of excluded duodenum with fluid concern for acute duodenitis as well. Correlate symptomatically. 3. Significant compact feces in the upper large bowel and transverse colon right hemicolon. Correlate for constipation. 4. Cholecystectomy with presumed benign postcholecystectomy biliary duct dilation. Confirmed with normal biliary labs. 5. Mild hepatic steatosis. Electronically authenticated by: ROSANA MINA Date: 07/20/2024 01:21
--- OUTSIDE RECORDS SUMMARY | 2024-07-20 00:23 | XMS_ITS | CCD ---
Author Organization [facility] Care Team Providers Care Operator Specialist Communications Name Role Phone PHYSICIAN, DEFAULT Admitting Unavailable PHYSICIAN, DEFAULT Attending Unavailable Unavailable Primary Care Provider UnavailLEONARD Tran JR Referring UnavailHolland Browne Primary Care Provider Holland Bowers DO Primary Care Provider Holland Bowers DO Primary Care Provider Holland Bowers DO Primary Care Provider Holland Bowers DO Primary Care Provider DO Holland Bowers Primary Care Provider MD Arjun Layton Admit Provider [phone] MD Dorys Sanchez Attending Provider [phone] MD Jermaine Sinha Emergency Provider Holland Bowers Unavailable Unavailable Unavailable DR HOLLAND BOWERS Primary Care Unavailable EILEEN ABEL Admitting Unavailable EILEEN ABEL Attending Unavailable EILEEN ABEL Consulting Unavailable LIBRADO, MACI Attending Unavailable MACI PAVON Consulting Unavailable DR HOLLAND BOWERS Primary Care Unavailable LIBRADO, MACI Admitting Unavailable ROBINSON, DR HOLLAND Uribe Primary Care Unavailable MISC, DR PAULINO Admitting Unavailable FURABENA, DR HOLLAND Uribe Consulting Unavailable MISC, DR PAULINO Attending Unavailable RUSTY, DR JACOB Doe Consulting Unavailable ROBINSON, DR HOLLAND Uribe Primary Care Unavailable DONNY CAZARES Admitting Unavailable DONNY CAZARES Attending Unavailable MLEVIN THOMASON CB Consulting Unavailallen CHAND ., DONNY Consulting Unavailable ANGELA, DR ANNETTE Doe Admitting Unavailable ANGELA, DR ANNETTE Doe Attending Unavailable ANGELA, DR ANNETTE Doe Consulting Unavailable ROBINSON, DR HOLLAND Uribe Primary Care Unavailable SHAILESH VIZCAINO Consulting Unavailable FLOR RODRÍGUEZ Consulting Unavailable MACI PAVON Consulting Unavailable ROBINSON, DR HOLLAND Uribe Primary Care Unavailable MACI PAVON Admitting Unavailable MACI PAVON Attending Unavailable HOLLAND BOWERS Primary Care Unavailab DAVID Bryant Attending Chana britni Sinha, MsShira Guerrero Attending Clemente Sinha, Ms. Eileen Guerrero Referring Clemente Bowers, Dr. Holland Melendez Primary Care Zuly Sinha, MsShira Guerrero Attending Clemente Sinha, Ms. Eileen Guerrero Referring Clemente Bowesr, Dr. Holland Melendez Primary Care UnaJermaine Lamas Admitting Unavailable Jermaine Sinha Attending Unavailable Holland Bowers Primary Care Unavailable Supriya Hoover Consulting Unavailable Dorys Sanchez Attending Unavailable Arjun Layton Admitting Unavailable Holland Bowers [facility] Care Unavailable Belem Aguayo Consulting Unavailable Salma Adair Consulting Unavailable Lb Mcghee Consulting Unavail able Rodríguez Hayes Consulting Unavailable Miles Shelton Consulting Unavailab Eileen Peters Consulting Unavailable Adilene Ayon Consulting Unavailable Lizzy Jacobo Consulting Unavailab Bryan Dejesus Consulting Unavailable Liliana Granda Consulting Unavailable Tasia Villasenor Consulting Unavailable HOLLAND BOWERS Primary Care Unavailab CONNIE Avila Referring Unava ilable HOLLAND BOWERS Primary Care Unavailab CONNIE Avila Referring Unava ilable AZALEA, CAMPBELL A Referring UnavailCAMPBELL Read Attending UnavailHOLLAND Browne Primary Care Unavailab Holland Schaefer MD Primary Care Provider [phone] HOLLAND BOWERS Primary Care Unavailab CONNIE Avila Admitting Unava ilable BEFFA, CONNIE HAMMER Attending Unava ilable DELVISABHIJIT Attending Unavailable DELVISABHIJIT Referring Unavailable FURLONG, HOLLAND AL Primary Care Unavailab le DELVIS, ABHIJIT Attending Unavailable SELF Referring Unavailable FURLONG, HOLLAND AL Primary Care Unavailab le FURLONG, HOLLAND AL Primary Care Unavailab le BEFFA, CONNIE HAMMER Attending Unava ilable FURLONG, HOLLAND AL Primary Care Unavailab le FURLONG, HOLLAND AL Primary Care Unavailab le BEFFA, CONNIE HAMMER Attending Unava ilable DELVISABHIJIT Attending Unavailable FURLONG, HOLLAND AL Primary Care Unavailab le DELVIS, ABHIJIT Referring Unavailable FURLONG, HOLLAND AL Primary Care Unavailab le FURLONG, HOLLAND AL Primary Care Unavailab le BEFFA, CONNIE HAMMER Attending Unava ilable DELVISABHIJIT Attending Unavailable FURLONG, HOLLAND AL Primary Care Unavailab le DELVIS, ABHIJIT Attending Unavailable FURLONG, HOLLAND AL Primary Care Unavailab le BEFFA, CONNIE HAMMER Referring Unava ilable FURLONG, HOLLAND AL Primary Care Unavailab le FURLONG, HOLLAND AL Primary Care Unavailab le FURLONG, HOLLAND AL Primary Care Unavailab le BEFFA, CONNIE HAMMER Referring Unava ilable FURLONG, HOLLAND AL Primary Care Unavailab le BEFFA, CONNIE HAMMER Referring Unava ilable DELVISABHIJIT Attending Unavailable FURLONG, HOLLAND AL Primary Care Unavailab le BEFFA, CONNIE HAMMER Referring Unava ilable FURLONG, HOLLAND AL Primary Care Unavailab le BEFFA, CONNIE HAMMER Admitting Unava ilable BEFFA, CONNIE HAMMER Attending Unava ilable FURLONG, HOLLAND AL Primary Care Unavailab le BEFFA, CONNIE HAMMER Attending Unava ilable BEFFA, CONNIE HAMMER Admitting Unava ilable SARAH GREGORY Referring Unavailable GREGORYSARAH Attending Unavailable FURLONG, HOLLAND AL Primary Care Unavailab le NERYZULY Referring Unavailable FURLONG, HOLLAND AL Primary Care Unavailab le MIJATOCONNOR CABRALES Attending Unavailable ABHIJIT EDMONDSON Attending Unavailable FURLONG, HOLLAND AL Primary Care Unavailab le FURLONG, HOLLAND AL Primary Care Unavailab le BEFFA, CONNIE HAMMER Referring Unava ilable DELVISABHIJIT Attending Unavailable FURLONG, HOLLAND AL Primary Care Unavailab le FURLONG, HOLLAND AL Primary Care Unavailab le BEFFA, CONNIE HAMMER Referring Unava ilable FURLONG, HOLLAND AL Primary Care Unavailab le BEFFA, CONNIE HAMMER Referring Unava ilable DELVISABHIJIT Attending Unavailable FURLONG, HOLLAND AL Primary Care Unavailab le FURLONG, HOLLAND AL Primary Care Unavailab le BEFFA, CONNIE HAMMER Attending Unava ilable ABHIJIT EDMONDSON Attending Unavailable NERYZULY Referring Unavailable FURLONG, HOLLAND AL Primary Care Unavailab le DELVISABHIJIT Referring Unavailable NERYZULY Attending Unavailable FURLONG, HOLLAND AL Primary Care Unavailab le FURLONG, HOLLAND AL Primary Care Unavailab le BEFFA, CONNIE HAMMER Attending Unava ilable Furlong Holland HARVEY Primary Care Provider VENKATA STANLEY Attending Unavailable FURLONGHOLLAND Referring Unavailable FURLONG, HOLLAND G Primary Care Unavailable FURLONG, HOLLAND Uribe Attending Unavailable FURLONG, HOLLAND G Referring Unavailable FURLONG, HOLLAND G Primary Care Unavailable FURLONG, HOLLAND G Attending Unavailable FURLONG, HOLLAND G Referring Unavailable FURLONG, HOLLAND G Primary Care Unavailable FURLONG, HOLLAND G Attending Unavailable FURLONG, HOLLAND G Referring Unavailable FURLONG, HOLLAND G Primary Care Unavailable FURLONG, HOLLAND G Attending Unavailable FURLONG, HOLLAND G Referring Unavailable FURLONG, HOLLAND G Primary Care Unavailable MACI PAVON Attending Unavailable FURLONG, HOLLAND G Referring Unavailable FURLONG, HOLLAND G Primary Care Unavailable FURLONG, HOLLAND G Referring Unavailable FURLONG, HOLLAND G Primary Care Unavailable LIBRADOMACI RYDER Referring Unavailable FURLONG, HOLLAND G Primary Care Unavailable NICHOLAS, SHIRAI Referring Unavailable VAL, SOLOMON Attending Unavailable LINDA DONALDSON Attending Unavailable RANJITH BALES Attending Unavailable DUCMICAH ENCARNACION Referring Unavailable NICHOLAS, CJ Referring Unavailable VAL, SOLOMON Admitting Unavailable VAL, SOLOMON Attending Unavailable VAL, SOLOMON Admitting Unavailable VAL, SOLOMON Attending Unavailable VAL, SOLOMON Referring Unavailable CARLOSSEAN Attending Unavailable RANJITH BALES Attending Unavailable LINDA DONALDSON Attending Unavailable VAL, SOLOMON Referring Unavailable VAL, SOLOMON Referring Unavailable VAL, SOLOMON Referring Unavailable ASIFRANJITH Attending Unavailable VAL, SOLOMON Referring Unavailable VAL, SOLOMON Referring Unavailable DUC, MICAH Referring Unavailable HORSINDY, MIGUEL Admitting Unavailable NICHOLAS, CJ Attending Unavailable LINDA DONALDSON Attending Unavailable SOLOMON NEAL Attending Unavailable MARIANNE DANG Attending Unavailable DANG, MARIANNE Rg Referring Unavailable DANG, MARIANNE Rg Attending Unavailable DANG, MARIANNE Rg Referring Unavailable DANG, MARIANNE Rg Referring Unavailable DANG, MARIANNE Rg Referring Unavailable DANG, MARIANNE Rg Attending Unavailable JR. KEANU, LEONARD Ovalle Attending Unavaila nile AC JR., LEONARD Ovalle Referring Unavaila nile AC JR., LEONARD Ovalle Attending Unavaila GILBERTO Knox Attending Unavailable DANG, MARIANNE Rg Attending Unavailable DANG, MARIANNE Rg Referring Unavailable JR. KEANU, LEONARD Ovalle Attending Unavaila ZULEMA Small Attending Unavailable JASMINA, MARIANNE Rg Referring Unavailable JR. KEANU, LEONARD Ovalle Attending Unavaila ble MARIANNE DANG Attending Unavailable ELVIRA MARTIN Attending Unavailable DANG, MARIANNE Rg Referring Unavailable KELBLEYBAN Attending Unavailable DANG, MARIANNE Rg Referring Unavailable JERRELL HARDY Attending Unavailable DANG, MARIANNE Rg Referring Unavailable JERRELL HARDY Attending Unavailable DANG, MARIANNE Rg Referring Unavailable KELBLEYBAN Attending Unavailable DANG, MARIANNE Rg Referring Unavailable HAYLEYJERRELL Attending Unavailable DANG, MARIANNE Rg Referring Unavailable HAYLEYJERRELL Attending Unavailable DANG, MARIANNE Rg Referring Unavailable ELVIRA MARTIN Attending Unavailable DANG, MARIANNE Rg Referring Unavailable HAYLEYJERRELL Attending Unavailable DANG, MARIANNE Rg Referring Unavailable KELBLEYBAN Attending Unavailable DANG, MARIANNE Rg Referring Unavailable ELVIRA MARTIN Attending Unavailable MARIANNE DANG Referring Unavailable MARIANNE DANG Attending Unavailable ELVIRA MARTIN Attending Unavailable MARIANNE DANG Referring Unavailable Allergies Allergy Classification Reported Allergen(s) Allergy Type Date of Onset Reaction(s) Facility (20 sources) Codeine; Translations: [codeine] Drug Allergy 07-11-19 13 Anaphylaxis, Other, Shortness of breath [facility] [place] (20 sources) Cephalexin; Translations: [Keflex] Drug Allergy 09-19-19 17 Hives, Other: See Comments, Unknown, Other (See Comments), Other [facility] (20 sources) Sulfamethoxazole; Translations: [sulfamethoxazole] Drug Allergy 07-13-19 [facility] (20 sources) Trimethoprim; Translations: [trimethoprim] Drug Allergy 07-13-19 [facility] (1 source) Cephalexin Drug Allergy [facility] (1 source) Codeine Drug Allergy 01-18-20 14 [facility] (20 sources) traMADol; Translations: [TRAMADOL] Drug Allergy 01-13-20 Intolerance, Mental Status Change, Hallucinations , Abnormal Behavior, Other (See Comments), Other [facility] (1 source) Cephalexin Drug Allergy 10-07-19 [facility] (1 source) Codeine Drug Allergy 10-07-19 [facility] (20 sources) Clarithromycin; Translations: [CLARITHROMYCIN] Propensity to adverse reactions 06-08-20 [facility] (20 sources) Iodinated Contrast Media; Translations: [IODINATED CONTRAST MEDIA] Drug Intolerance 08-29-19 [facility] (4 sources) [facility] (7 sources) Anesthetics - Amide Type - Select Amino Amides; Translations: [ANESTHETICS - AMIDE TYPE - SELECT AMINO AMIDES] Propensity to adverse reactions to drug 08-29-19 [facility] Medications Current Medications Medication Drug Class(es) Dates Sig (Normalized) Sig (Original) acetaminophen 325 mg / oxyCODONE hydrochloride 5 mg oral tablet (20 sources) Opioid Agonist Start: 07-14-2024 End: 07-19-2024 take 1 tablet by mouth every six hours for pain oxyCODONE-acetamin ophen (Percocet) 5-325 MG tablet Indications: S/P arthroscopy of left shoulder Take 1 tablet by mouth every 6 (six) hours if needed for severe pain for up to 5 days 20 tablet 07/14/2024 07/19/2024 Active Start: 06-19-2024 End: 07-01-2024 take 1 tablet by mouth every six hours for pain oxyCODONE-acetaminophen (Percocet) 5-325 MG tablet Indications: Internal derangement of left shoulder , S/P arthroscopy of left shoulder Take 1 tablet by mouth every 6 (six) hours if needed for severe pain for up to 5 days 20 tablet 06/26/2024 07/01/2024 Active Start: 05-24-2024 End: 06-14-2024 take 1 tablet by mouth every six hours for pain oxyCODONE-acetaminophen (Percocet) 5-325 MG tablet Indications: Internal derangement of left shoulder Take 1 tablet by mouth every 6 (six) hours if needed for moderate pain for up to 5 days 20 tablet 06/09/2024 06/14/2024 Active amLODIPine 2.5 mg oral tablet (4 sources) Dihydropyridine Calcium Channel Feliz Start: 09-18-2022 take 2.5 mg by mouth once daily Amlodipine Active 2.5 MG PO Daily September 18, 2022 12:00am Start: 06-29-2019 End: 09-16-2022 take 10 mg by mouth once daily in the morning Amlodipine Discontinued 10 MG PO Every morning June 29, 2019 1:00am September 16, 2022 10:13pm amoxicillin 875 mg / clavulanate 125 mg oral tablet (1 source) Penicillin-class Antibacterial Start: 12-17-2021 End: 12-19-2021 take 1 tablet by mouth twice daily amoxicillin-clavulanic acid (AUGMENTIN) 875-125 mg per tablet Take 1 tablet by mouth twice daily for 2 days. 4 tablet 0 12/17/2021 12/19/2021 Active Comment on above: Take 1 tablet by mouth twice daily for 2 days. aspirin 81 mg chewable tablet (20 sources) Platelet Aggregation Inhibitor, Nonsteroidal Anti-inflammatory Drug Start: 09-18-2022 End: 02-21-2024 aspirin 81 mg chewable tablet Chew 1 tablet (81 mg total) and swallow in the morning. 09/18/2022 Active take 1 tablet by mouth once og y Aspirin EC 81 MG Oral Tablet Delayed Release TAKE 1 TABLET DAILY. Quantity: 90 Refills: 3 Ordered: 14-Oct-2022 DO Active Comment on above: Aspirin (Children's Aspirin) 81 mg Tablet,Chewable Active 81 MG PO Daily 90 90 September 18, 2022 12:00am calcium carbonate 1250 mg / cholecalciferol 100 unt / vitamin k 0.04 mg chewable tablet (20 sources) Vitamin D Start: 09-18-19 Calcium-Vitamin D-Vitamin K 500-100-40 MG-UNT-MCG chewable tablet 1 tablet 09/17/2022 Active calcium carbonate 1250 mg / cholecalciferol 100 unt / vitamin k1 0.04 mg chewable tablet (2 sources) Vitamin D, Warfarin Reversal Agent, Vitamin K Start: 09-18-19 take 1 tablet by mouth three times daily Calcium-Vitamin D3-Vitamin K Active 1 TAB PO Three times daily September 17, 2022 12:00am diclofenac sodium 0.01 mg/mg topical gel (20 sources) Nonsteroidal Anti-inflammatory Drug Start: 06-17-20 diclofenac sodium (VOLTAREN) 1 % gel Apply 2 g topically in the morning and 2 g at noon and 2 g in the evening and 2 g before bedtime. 100 g 0 06/17/2023 Active Start: 02-15-2018 End: 02-27-2022 apply 2 g topically four times daily diclofenac sodium (VOLTAREN) 1 % topical gel Apply 2 g to affected area four times daily. 1 Tube 1 02/15/2018 02/27/2022 Discontinued (Course of therapy completed) Comment on above: Apply 2 g to affecte d area four times daily. doxycycline hyclate 100 mg oral capsule (6 sources) Tetracycline-class Drug Start: 05-06-2023 End: 05-20-2023 take 1 capsule by mouth twice daily doxycycline hyclate (VIBRAMYCIN) 100 mg capsule Take 1 capsule by mouth two times a day for 14 days. 28 capsule 0 05/06/2023 05/20/2023 Active Start: 01-12-2023 End: 01-22-2023 take 1 capsule by mouth twice daily doxycycline hyclate (VIBRAMYCIN) 100 mg capsule Indications: S/P repair of ventral hernia Take 1 capsule by mouth twice daily for 10 days. 20 capsule 0 01/12/2023 01/22/2023 Active Comment on above: Take 1 capsule by [facility] twice daily for 10 days. Take 1 capsule by [facility] two times a day for 14 days. enteric contrast (will be provided with radiology test) (9 sources) Start: 12-02-2021 End: 12-03-2021 enteric contrast (will be provided with radiology test) For CT ABD WO IVCON order Administer, As Directed One Time Only, via Oral, Rectal, both Oral and Rectal, Enteric Tube, Stoma or Indwelling Catheter, Enteric Contrast as designated per enteric contrast guidelines 1 Each 0 12/02/2021 12/03/2021 Active Start: 11-13-2021 End: 11-14-2021 enteric contrast (will be pr ovided with radiology test) Indications: Complications of bariatric procedures , Gastric anastomotic leak For CT ABD/PEL W IVCON Routine order Administer, As Directed One Time Only, via Oral, Rectal, both Oral and Rectal, Enteric Tube, Stoma or Indwelling Catheter, Enteric Contrast as designated per enteric contrast guidelines 1 Each 0 11/13/2021 11/14/2021 Active Start: 10-08-2021 End: 10-09-2021 enteric contrast (will be pr ovided with radiology test) For CT ABD/PEL W IVCON Routine order Administer, As Directed One Time Only, via Oral, Rectal, both Oral and Rectal, Enteric Tube, Stoma or Indwelling Catheter, Enteric Contrast as designated per enteric contrast guidelines 1 Each 0 10/08/2021 10/09/2021 Active Start: 09-25-2021 End: 09-26-2021 enteric contrast (will be pr ovided with radiology test) For CT ABD/PEL W IVCON Routine order Administer, As Directed One Time Only, via Oral, Rectal, both Oral and Rectal, Enteric Tube, Stoma or Indwelling Catheter, Enteric Contrast as designated per enteric contrast guidelines 1 Each 0 09/25/2021 09/26/2021 Comment on above: For CT ABD/PEL W IVC ON Routine order Administer, As Directed One Time Only, via Oral, Rectal, both Oral and Rectal, Enteric Tube, Stoma or Indwelling Catheter, Enteric Contrast as designated per enteric contrast guidelines For CT ABD WO IVCON order Administer, As Directed One Time Only, via Oral, Rectal, both Oral and Rectal, Enteric Tube, Stoma or Indwelling Catheter, Enteric Contrast as designated per enteric contrast guidelines famotidine 20 mg oral tablet (20 sources) Histamine-2 Receptor Antagonist take 1 tablet by mouth in the morning famotidine (PEPCID) 20 mg tablet Take 1 tablet (20 mg total) by mouth in the morning. Active FAMOTIDINE ORAL Take by mouth. 0 Suspended FAMOTIDINE ORAL Take by mouth. 0 Active Comment on above: Take by mouth. fluconazole 200 mg oral tablet (1 source) Azole Antifungal Start: 12-19-19 End: 12-20-19 take 2 tablets by mouth once daily fluconazole (DIFLUCAN) 200 mg tablet Take 2 tablets by mouth once daily for 1 day. 2 tablet 0 12/18/2021 12/19/2021 Active Comment on above: Take 2 tablets by mo [facility] once daily for 1 day. HYDROmorphone hydrochloride 2 mg oral tablet (10 sources) Opioid Agonist Start: 03-03-20 take 1 tablet by mouth every eight hours as needed for pain HYDROmorphone (DILAUDID) 2 mg tablet Indications: Adhesive capsulitis of left shoulder Take 1 tablet (2 mg total) by mouth every 8 (eight) hours as needed for pain. Max Daily Amount: 6 mg 20 tablet 03/03/2024 Active End: 05-01-2024 HYDROmorphone (Dilaudid) 3 M G suppository Insert into the rectum 05/01/2024 Discontinued (Therapy completed) iv contrast (will be provide d with radiology test) (5 sources) Start: 11-13-2021 End: 11-14-2021 iv contrast (will be provide d with radiology test) Indications: Complications of bariatric procedures , Gastric anastomotic leak CT ABD/PEL -Inject, intravenously, once for 1 dose.No IV access, insert saline lock prior to the beginning of sedation, infusion, injection of imaging exam. Discontinue saline lock post exam. If Pt. has a central line or IVAD, may access for administration according to line specific nursing protocol. Once exam is complete flush line and de-access according to line specific nursing protocol in the CT contrast administration guidelines link. 1 Each 0 11/13/2021 11/14/2021 Active Start: 10-08-2021 End: 10-09-2021 iv contrast (will be provide d with radiology test) CT ABD/PEL -Inject, intravenously, once for 1 dose.No IV access, insert saline lock prior to the beginning of sedation, infusion, injection of imaging exam. Discontinue saline lock post exam. If Pt. has a central line or IVAD, may access for administration according to line specific nursing protocol. Once exam is complete flush line and de-access according to line specific nursing protocol in the CT contrast administration guidelines link. 1 Each 0 10/08/2021 10/09/2021 Active Start: 09-25-2021 End: 09-26-2021 iv contrast (will be provide d with radiology test) CT ABD/PEL -Inject, intravenously, once for 1 dose.No IV access, insert saline lock prior to the beginning of sedation, infusion, injection of imaging exam. Discontinue saline lock post exam. If Pt. has a central line or IVAD, may access for administration according to line specific nursing protocol. Once exam is complete flush line and de-access according to line specific nursing protocol in the CT contrast administration guidelines link. 1 Each 0 09/25/2021 09/26/2021 Comment on above: CT ABD/PEL -Inject, intravenously, once for 1 dose.No IV access, insert saline lock prior to the beginning of sedation, infusion, injection of imaging exam. Discontinue saline lock post exam. If Pt. has a central line or IVAD, may access for administration according to line specific nursing protocol. Once exam is complete flush line and de-access according to line specific nursing protocol in the CT contrast administration guidelines link. levothyroxine sodium 0.125 mg oral tablet (20 sources) l-Thyroxine Start: 05-01-20 take 1 tablet by mouth in the morning levothyroxine (SYNTHROID, LEVOTHROID) 125 MCG tablet Take 1 tablet (125 mcg total) by mouth in the morning. 90 tablet 05/01/2024 Active Start: 01-10-2024 End: 05-04-2024 take 1 tablet by mouth in the morning levothyroxine (SYNTHROID, LEVOTHROID) 112 MCG tablet Take 1 tablet (112 mcg total) by mouth in the morning for 7 days. 7 tablet 04/27/2024 05/01/2024 Discontinued (Therapy completed) Start: 03-31-2023 take 1 tablet by abel th once daily at bedtime levothyroxine (SYNTHROID) 112 mcg tablet Take 1 tablet by mouth daily at bedtime. 30 tablet 0 05/06/2023 Active Start: 02-05-2022 End: 01-12-2023 levothyroxine (SYNTHROID) 88 mcg tablet Take 100 mcg by mouth once daily. 0 02/05/2022 01/12/2023 Discontinued (Course of therapy completed) Start: 02-05-2022 take 1 tablet by abel th once daily levothyroxine (SYNTHROID) 88 mcg tablet Take 88 mcg by mouth once daily. 0 02/05/2022 Active Start: 06-29-2019 take 100 ug by mouth once daily in the morning Levothyroxine Active 100 MCG PO Every morning June 29, 2019 1:00am take 1 tablet by abel th in the morning levothyroxine (Synthroid, Levoxyl) 100 MCG tablet Take 100 mcg by mouth in the morning. Active End: 02-27-2022 take 1 tablet by mouth once daily Levothyroxine Sodium 200 MCG Oral Tablet TAKE 1 TABLET DAILY. Quantity: 0 Refills: 0 Ordered: 14-Oct-2022 DO Active take 1 tablet by abel th once daily before breakfast levothyroxine (SYNTHROID) 50 mcg tablet Take 50 mcg by mouth daily before breakfast. 0 Suspended Levothyroxine So dium (LEVOXYL PO) Take by mouth. 0 Active Comment on above: Take 200 mcg by mout h daily before breakfast. Take 50 mcg by mouth daily before breakfast. Take 88 mcg by mouth once daily. Take 100 mcg by mout h once daily. Take 1 tablet by abel th daily at bedtime. magnesium hydroxide 80 mg/ml oral suspension (7 sources) Start: 3 End: 3 take 15 mL by mouth once daily magnesium hydroxide (MILK OF MAGNESIA) 400 mg/5 mL suspension Take 15 mL by mouth once daily. 450 mL 0 01/04/2023 02/03/2023 Active Comment on above: Take 15 mL by mouth once daily. meloxicam 15 mg oral tablet (20 sources) Nonsteroidal Anti-inflammatory Drug Start: 4 End: 4 take 1 tablet by mouth once daily meloxicam (Mobic) 15 MG tablet Indications: Puentes's neuroma of right foot Take 1 tablet (15 mg) by mouth Daily for 21 days 21 tablet 02/22/2024 03/14/2024 Active Start: 02-15-2018 take 1 tablet by abel th once daily meloxicam (MOBIC) 15 mg tablet Take 1 tablet by mouth once daily. 30 tablet 1 02/15/2018 Suspended Comment on above: Take 1 tablet by abel th once daily. methocarbamol 750 mg oral tablet (2 sources) Muscle Relaxant Start: 2022 End: 2022 take 1 tablet by mouth three times daily methocarbamol (ROBAXIN) 750 mg tablet Take 1 tablet by mouth three times daily. 90 tablet 0 03/11/2023 04/10/2023 Active Comment on above: Take 1 tablet by abel th three times daily. methylPREDNISolone (6 sources) Corticosteroid Start: 2023 End: 2023 methylPREDNISolone (Medrol Dospak) 4 MG tablets Indications: Puentes's neuroma of right foot Take as directed on package. 21 tablet 02/22/2024 05/01/2024 Discontinued (Therapy completed) Start: 02-22-2024 methylPREDNISo lone (Medrol Dospak) 4 MG tablets Indications: Puentes's neuroma of right foot Take as directed on package. 21 tablet 02/22/2024 Active Multiple Vitamin (Multi Michelle min) tablet (20 sources) Multiple Vitamin (Multi Vitamin) tablet 1 (one) time each day at the same time Active Multiple Vitamin (Multi Vitamin) tablet 1 (one) time each day at the same time 0 Active epbtpjlc-vjo-kshi-folic-vit K1 8 mg-400 mcg- 10 mcg tablet,chewable (4 sources) Start: 03-31-2022 rzmhoklb-doa-taby-folic-vit K1 8 mg-400 mcg- 10 mcg tablet,chewable Chew 1 tablet and swallow in the morning. 03/31/2022 Active Start: 03-31-2022 nfzupxbo-wat-a xgy-pfqyp-nfw K1 8 mg-400 mcg- 10 mcg tablet,chewable Chew 1 tablet and swallow in the morning. 0 03/31/2022 Active Multivitamin preparation (2 sources) Start: 09-17-2022 take 1 tablet by mouth once daily Multivitamin Active 1 TAB PO Daily September 17, 2022 12:00am mupirocin 0.02 mg/mg topical ointment (3 sources) RNA Synthetase Inhibitor Antibacterial Start: 04-27-2024 mupirocin (BACTROBAN) 2 % ointment Apply 1 Application topically 3 (three) times a day. Apply to infected area on abdomen 15 g 04/27/2024 Active nystatin [id number] unt/ml topical cream (20 sources) Polyene Antifungal Start: 04-27-2024 nystatin (MYCOSTATIN) cream Apply 1 Application topically in the morning and 1 Application before bedtime. 30 g 1 04/27/2024 Active Start: 02-03-2022 End: 01-12-2023 take 5 mL by mouth four times daily nystatin (MYCOSTATIN) 100,000 unit/mL suspension take 5 milliliters by mouth four times a day for 7 days 0 02/03/2022 01/12/2023 Discontinued (Course of therapy completed) Comment on above: take 5 milliliters b y mouth four times a day for 7 days ondansetron 4 mg oral tablet (20 sources) Serotonin-3 Receptor Antagonist Start: End: 3 take 1 tablet by mouth every eight hours as needed ondansetron (ZOFRAN) 4 mg tablet Take 1 tablet by mouth every 8 hours as needed for nausea/vomiting (for nausea.). 90 tablet 0 09/15/2022 10/15/2022 Active Start: 01-22-2022 End: 01-12-2023 take 1 tablet by mouth every six hours ondansetron orally disintegrating (ZOFRAN ODT) 4 mg disintegrating tablet Take 1 tablet by mouth every 6 hours. 20 tablet 0 03/19/2022 01/12/2023 Discontinued (Course of therapy completed) Comment on above: Take 1 tablet by abel th every 6 hours. Take 1 tablet by abel th every 8 hours as needed for nausea/vomiting (for nausea.) for up to 21 doses. Take 1 tablet by abel th every 8 hours as needed for nausea/vomiting (for nausea.). pravastatin sodium 20 mg oral tablet (20 sources) HMG-CoA Reductase Inhibitor Start: 2022 take 1 tablet by mouth once daily pravastatin (PRAVACHOL) 20 mg tablet Take 1 tablet (20 mg total) by mouth nightly. 10/14/2022 Active 72 hr scopolamine 0.0139 mg/hr transdermal system (3 sources) Anticholinergic Start: 2023 apply 1 dose transdermal route once daily scopolamine (TRANSDERM-SCOP) 1 mg/[address] 1 patch on the skin every third day. 5 patch 1 04/27/2024 Active sennosides, detention 8.6 mg oral tablet (7 sources) Start: 2022 End: 2022 take 1 tablet by mouth once daily senna (SENOKOT) 8.6 mg tab Take 1 tablet by mouth once daily. 30 tablet 0 01/04/2023 02/03/2023 Active Comment on above: Take 1 tablet by abel once daily. sulfamethoxazole 800 mg / trimethoprim 160 mg oral tablet (5 sources) Dihydrofolate Reductase Inhibitor Antibacterial, Sulfonamide Antimicrobial Start: 2022 End: 2022 take 1 tablet by mouth twice daily sulfamethoxazole- trimethoprim (BACTRIM DS) 800-160 mg per tablet Indications: Infection in abdomen (HCC) Take 1 tablet by mouth two times a day for 7 days. 14 tablet 0 04/13/2023 04/20/2023 Active Start: 01-14-2023 End: 01-24-2023 take 1 tablet by mouth twice daily sulfamethoxazole-trimethoprim (BACTRIM D S) 800-160 mg per tablet Indications: S/P repair of ventral hernia , Infection in abdomen (HCC) Take 1 tablet by mouth twice daily for 10 days. 20 tablet 0 01/14/2023 01/24/2023 Active Comment on above: Take 1 tablet by abel twice daily for 10 days. Take 1 tablet by abel two times a day for 7 days. Take 1 tablet by abel two times a day for 10 days. ubidecarenone 300 mg oral capsule (2 sources) Start: 09-18-2022 Coenzyme Q10 (Co Q-10) 300 mg capsule Active 300 MG PO Daily September 18, 2022 12:00am Completed/Discontinued Medications Medication Drug Class(es) Dates Sig (Normalized) Sig (Original) acetaminophen 500 mg oral tablet (13 sources) Start: 06-30-2023 take 2 tablets by mouth every six hours as needed acetaminophen (TYLENOL) 500 mg tablet Take 2 tablets by mouth every 6 hours as needed for pain. 0 06/30/2023 Active Start: 05-06-2023 take 2 tablets by mo uth every six hours as needed acetaminophen (TYLENOL) 500 mg tablet Take 2 tablets by mouth every 6 hours as needed for pain or fever (specify temp.). 0 05/06/2023 Active Start: 01-04-2023 End: 01-11-2023 take 2 tablets by mouth every six hours as needed acetaminophen (TYLENOL) 500 mg tablet Take 2 tablets by mouth every 6 hours as needed for pain for up to 7 days. 0 01/04/2023 01/11/2023 Active Comment on above: Take 2 tablets by mo uth every 6 hours as needed for pain for up to 7 days. Take 2 tablets by mo uth every 6 hours as needed for pain or fever (specify temp.). Take 2 tablets by mo uth every 6 hours as needed for pain. acetaminophen 21.7 mg/ml / HYDROcodone bitartrate 0.5 mg/ml oral solution (6 sources) Opioid Agonist Start: 3 End: 3 take 10 mL by mouth every eight hours as needed for pain HYDROcodone-acetaminop hen (HYCET) 7.5-325 mg/15 mL oral liquid Indications: Acute postoperative pain Take 10 mL by mouth every 8 hours as needed for pain. 40 mL 0 02/01/2023 02/08/2023 Discontinued Start: 01-12-2023 End: 01-15-2023 take 10 mL by mouth every six hours as needed for pain HYDROcodone-acetaminophen (HYCET) 7.5-32 5 mg/15 mL oral liquid Indications: S/P repair of ventral hernia , Postoperative pain Take 10 mL by mouth every 6 hours as needed for pain. 100 mL 0 01/15/2023 Active Comment on above: Take 10 mL by mouth every 6 hours as needed for pain. Take 10 mL by mouth every 8 hours as needed for pain. [id number] 200 actuat albuterol 0.09 mg/actuat metered dose inhaler (20 sources) beta2-Adrenergic Agonist Start: 018 End: 023 take 2 puff(s) by inhalation every four hours as needed albuterol HFA (PROAIR HFA) 90 mcg/actuation inhaler 2 Puffs every 4 hours as needed. Take as directed 1 Inhaler 3 02/15/2018 01/12/2023 Discontinued (Course of therapy completed) Comment on above: 2 Puffs every 4 hour s as needed. Take as directed atorvastatin 10 mg oral tablet (2 sources) HMG-CoA Reductase Inhibitor Start: End: take 10 mg by mouth once daily in the morning Atorvastatin Discontinued 10 MG PO Every morning June 29, 2019 1:00am September 16, 2022 10:13pm bumetanide 2 mg oral tablet (20 sources) Loop Diuretic Start: End: take 2 mg by mouth once daily in the morning Bumetanide Discontinued 2 MG PO Every morning June 29, 2019 1:00am September 16, 2022 10:13pm Comment on above: Take 2 mg by mouth o nce daily. calcium carbonate 500 mg chewable tablet (15 sources) Start: End: take 2 tablets by mouth twice daily calcium carbonate (TUMS) 500 mg chew Take 2 tablets by mouth twice daily. 60 tablet 0 03/31/2022 01/12/2023 Discontinued (Course of therapy completed) Comment on above: Take 2 tablets by [facility] twice daily. Calcium-Vitamin D3 TABS (2 sources) Calcium-Vitamin D3 TABS TAKE 1 TABLET 3 times daily Quantity: 0 Refills: 0 Ordered: 14-Oct-2022 DO Active chlorthalidone 25 mg oral tablet (20 sources) Thiazide-like Diuretic Start: chlorthalidone (HYGROTON) 25 mg tablet once daily. 0 06/07/2018 Suspended Comment on above: once daily. cholecalciferol 0.025 mg oral capsule (17 sources) Vitamin D Start: End: take 1 capsule by mouth once daily VITAMIN D 25 mcg (1,000 unit) cap take 1 capsule by mouth once daily 60 capsule 0 06/04/2022 01/12/2023 Discontinued (Course of therapy completed) Start: 03-31-2022 take 1 capsule by mo [facility] once daily Cholecalciferol, Vitamin D3, 25 mcg (1,000 unit) cap Take 1 capsule by mouth once daily. 60 capsule 0 03/31/2022 Active Start: 06-29-2019 End: 09-17-2022 take 01301 [IU] by mouth every week Cholecalciferol (Vitamin D3) Discontinued 28839 UNIT PO every week June 29, 2019 1:00am September 17, 2022 1:19am Comment on above: Take 1 capsule by mo uth once daily. take 1 capsule by mo uth once daily CHOLECALCIFEROL, VITAMIN D3, (VITAMIN D3 ORAL) (20 sources) End: 02-27-2022 CHOLECALCIFEROL, VITAMIN D3, (VITAMIN D3 ORAL) Take by mouth once daily. 0 02/27/2022 Discontinued (Course of therapy completed) CHOLECALCIFEROL, VITAMIN D3, (VITAMIN D3 ORAL) Take by mouth once daily. 0 Suspended CHOLECALCIFEROL, VITAMIN D3, (VITAMIN D3 ORAL) Take by mouth once daily. 0 Active Comment on above: Take by mouth once d aily. diphenhydrAMINE hydrochloride 25 mg oral capsule (2 sources) Histamine-1 Receptor Antagonist Start: 07-13-19 End: 09-17-19 take 1 capsule by mouth every four hours Diphenhydramine Hcl (Benadryl) 25 mg Capsule Discontinued 25 MG PO Q4H July 13, 2019 1:00am September 16, 2022 10:14pm docusate sodium 100 mg oral capsule (10 sources) Start: 06-30-20 take 1 capsule by mouth every twelve hours as needed docusate sodium (COLACE) 100 mg capsule Take 1 capsule by mouth two times a day as needed for constipation. 0 06/30/2023 Active Start: 01-04-2023 End: 02-03-2023 take 1 capsule by mouth twice daily docusate sodium (COLACE) 100 mg capsule Take 1 capsule by mouth twice daily. 60 capsule 0 01/04/2023 02/03/2023 Active Comment on above: Take 1 capsule by mo uth twice daily. Take 1 capsule by mo uth two times a day as needed for constipation. DODEX 1,000 mcg/mL (20 sources) Start: 11-29-2022 DODEX 1,000 mcg/mL inject 1 milliliter ( 1000 MCG ) intramuscularly EVERY 3 MONTHS 1 mL 2 11/29/2022 Suspended Start: 11-29-2022 DODEX 1,000 mc g/mL inject 1 milliliter ( 1000 MCG ) intramuscularly EVERY 3 MONTHS 1 mL 2 11/29/2022 Active Comment on above: inject 1 milliliter ( 1000 MCG ) intramuscularly EVERY 3 MONTHS DULoxetine 60 mg delayed release oral capsule (2 sources) Serotonin and Norepinephrine Reuptake Inhibitor Start: End: take 60 mg by mouth once daily in the morning Duloxetine Discontinued 60 MG PO Every morning June 29, 2019 1:00am September 16, 2022 11:44pm 0.4 ml enoxaparin sodium 100 mg/ml prefilled syringe (18 sources) Low Molecular Weight Heparin Start: inject 40 mg by subcutaneous injection every twelve hours enoxaparin (LOVENOX) 40 mg/0.4 mL Inject 0.4 mL subcutaneously every 12 hours 10 Each 0 03/09/2022 Active Comment on above: Inject 0.4 mL subcut aneously every 12 hours gabapentin 300 mg oral capsule (20 sources) Anti-epileptic Agent Start: End: take 1 capsule by mouth twice daily as needed gabapentin (NEURONTIN) 300 mg capsule Indications: S/P repair of ventral hernia Take 1 capsule by mouth twice daily as needed for up to 28 days. 56 capsule 0 02/09/2023 Active Start: 06-15-2018 take 3 capsules by m outh three times daily gabapentin (NEURONTIN) 300 mg capsule Indications: Reactive arthritis (HCC) , Pain in joint, multiple sites Take 3 capsules by mouth three times daily. 240 capsule 4 06/15/2018 Suspended Comment on above: Take 3 capsules by m outh three times daily. Take 1 capsule by mo uth twice daily as needed for up to 28 days. hydroxychloroquine sulfate 200 mg oral tablet (2 sources) Antimalarial, Antirheumatic Agent Start : 06-29 End: 09-16 take 200 mg by mouth twice daily Hydroxychloroquine Discontinued 200 MG PO Twice daily June 29, 2019 1:00am September 16, 2022 11:43pm lidocaine 0.05 mg/mg medicated patch (1 source) Antiarrhythmic, Amide Local Anesthetic Start : 03-29 End: 04-27 apply 1 dose transdermal route once daily, then apply 1 dose transdermal route every twelve hours lidocaine (LIDODERM) 5 % Place 1 patch on the skin daily. Remove & Discard patch within 12 hours or as directed by MD Caro patch 03/29/2024 04/27/2024 Discontinued (Therapy completed) lovastatin 20 mg oral tablet (20 sources) HMG-CoA Reductase Inhibitor End: 02-27 take 10 mg by mouth once daily lovastatin (MEVACOR) 20 mg tablet Take 10 mg by mouth once daily. 0 02/27/2022 Discontinued (Course of therapy completed) Comment on above: Take 10 mg by mouth once daily. metOLazone 5 mg oral tablet (2 sources) Thiazide-like Diuretic Start : 06-29 End: 09-16 take 5 mg by mouth three times weekly Metolazone Discontinued 5 MG PO 3 Times a week June 29, 2019 1:00am September 16, 2022 11:43pm 24 hr metoprolol succinate 50 mg extended release oral tablet (20 sources) beta-Adrenergic Feliz Start : 06-29 End: 09-16 take 50 mg by mouth once daily in the morning Metoprolol Succinate Discontinued 50 MG PO Every morning June 29, 2019 1:00am September 16, 2022 11:43pm metoprolol succi mirna ER (TOPROL XL) 25 mg 24 hr tablet Takes 1/2 tablet 0 Active Comment on above: Takes 1/2 tablet mirtazapine 7.5 mg oral tablet (13 sources) Start: 03-11-2023 End: 04-10-2023 take 1 tablet by mouth once daily at bedtime Mirtazapine (REMERON) 7.5 mg tablet Take 1 tablet by mouth daily at bedtime. 30 tablet 0 03/11/2023 Active Comment on above: Take 1 tablet by abel th daily at bedtime. Multi Vitamin TABS (2 sources) Multi Vitamin TA BS TAKE 1 TABLET DAILY. Quantity: 0 Refills: 0 Ordered: 14-Oct-2022 DO Active sgbnovli-obn-dinu-fol ic-vit K (CENTRUM) 8 mg-400 mcg- 10 mcg chewable tablet (15 sources) Start: 03-31-2022 End: 01-12-2023 take 1 tablet by mouth once daily rhygijrp-omx-igza-fol ic-vit K (CENTRUM) 8 mg-400 mcg- 10 mcg chewable tablet Take 1 tablet by mouth once daily. 90 tablet 3 03/31/2022 01/12/2023 Discontinued (Course of therapy completed) Start: 03-31-2022 take 1 tablet by abel th once daily odoxplic-tkd-xbfn-folic-vit K (CENTRUM) 8 mg-400 mcg- 10 mcg chewable tablet Take 1 tablet by mouth once daily. 90 tablet 3 03/31/2022 Active Comment on above: Take 1 tablet by abel th once daily. multivit-min/iron/foli c acid/K (BARIATRIC MULTIVITAMINS ORAL) (20 sources) multivit-min/iro n/fol ic acid/K (BARIATRIC MULTIVITAMINS ORAL) nut.tx.comp. immune systm,reg (IMPACT PEPTIDE 1.5 ALEKSANDER) 0.09 gram- 1.5 kcal/mL liqd (8 sources) Start: 2 nut.tx.comp. immune systm,reg (IMPACT PEPTIDE 1.5 ALEKSANDER) 0.09 gram- 1.5 kcal/mL liqd 45 mL/hr by FEEDING TUBE route once daily. Impact 1.5 or equal formula @ 45 ml/hr with 150 ml x 6 water flushes, cycle to 70 ml/hr x 16 hours as tolerated via corpak 16315 mL 1 12/17/2021 Active Comment on above: 45 mL/hr by FEEDING TUBE route once daily. Impact 1.5 or equal formula @ 45 ml/hr with 150 ml x 6 water flushes, cycle to 70 ml/hr x 16 hours as tolerated via corpak oxyCODONE hydrochloride 5 mg oral tablet (20 sources) Opioid Agonist Start: 3 End: 3 take 1 tablet by mouth every eight hours as needed for pain oxyCODONE IR (ROXICODONE) 5 mg immediate release tablet Indications: Acute postoperative pain Take 1 tablet by mouth every 8 hours as needed for pain. 20 tablet 0 05/13/2023 Active Start: 02-08-2023 End: 02-18-2023 take 1 tablet by mouth every six hours as needed for pain oxyCODONE IR (ROXICODONE) 5 mg immediate release tablet Indications: S/P repair of ventral hernia Take 1 tablet by mouth every 6 hours as needed for pain. 20 tablet 0 02/18/2023 Suspended Start: 03-09-2022 End: 03-12-2022 take 1 tablet by mouth every eight hours as needed for pain oxyCODONE IR (ROXICODONE) 5 mg immediate release tablet Indications: Post-op pain Take 1 tablet by mouth every 8 hours as needed for pain for up to 3 days. 9 tablet 0 03/09/2022 03/12/2022 Comment on above: Take 1 tablet by abel th every 8 hours as needed for pain for up to 3 days. Take 1 tablet by abel th every 6 hours as needed for pain. Take 1 tablet by abel th every 8 hours as needed for pain. pantoprazole 40 mg delayed release oral tablet (8 sources) Proton Pump Inhibitor Start: 2 End: 2 pantoprazole (PROTONIX) 2 mg/mL oral liquid 20 mL by CORPAK route DAILY (6 AM). 600 mL 2 12/17/2021 02/27/2022 Discontinued (Course of therapy completed) Comment on above: 20 mL by CORPAK rout e DAILY (6 AM). potassium chloride 20 meq extended release oral tablet (20 sources) Start: 9 End: 3 take 20 mEq by mouth once daily in the morning Potassium Chloride Discontinued 20 MEQ PO Every morning June 29, 2019 1:00am September 16, 2022 11:44pm potassium chlori de ER (K-DUR, KLOR-CON) 10 mEq tablet Take 10 mEq by mouth once daily. 0 Suspended Comment on above: Take 10 mEq by mouth once daily. predniSONE 10 mg oral tablet (20 sources) Start: 2017 predniSONE (DELTASONE) 10 mg tablet Indications: Pain in joint, multiple sites Please take as directed. 32 tablet 0 05/05/2018 Suspended Comment on above: Please take as direc grisel. 12 hr ranolazine 500 mg extended release oral tablet (2 sources) Anti-anginal Start: 2022 take 1 tablet by mouth twice daily Ranolazine ER 500 MG Oral Tablet Extended Release 12 Hour TAKE 1 TABLET BY MOUTH TWO TIMES A DAY Quantity: 60 Refills: 6 Ordered: 14-Oct-2022 Cesar Sinha APRN-Eileen DUNN Start : 14-Oct-2022 Active salicylic acid 0.06 mg/mg topical gel (20 sources) Start: 2017 Salicylic Acid (KERALYT) 6 % gel Apply to feet/ hands once daily at night 240 g 3 04/28/2018 Suspended Comment on above: Apply to feet/ hands once daily at night 0.25 mg, 0.5 mg dose 1.5 ml semaglutide 1.34 mg/ml pen injector (2 sources) Start: 2018 End: 2022 Semaglutide (Ozempic) 0.25 mg or 0.5 mg(2 mg/1.5 mL) Pen Injector Discontinued 0.5 MG SUBCUT every week June 29, 2019 1:00am September 16, 2022 11:44pm spironolactone 25 mg oral tablet (20 sources) Aldosterone Antagonist Start: 2017 End: 2022 take 25 mg by mouth once daily in the morning Spironolactone Discontinued 25 MG PO Every morning June 29, 2019 1:00am September 16, 2022 11:44pm Comment on above: Take 25 mg by mouth once daily. tamsulosin hydrochloride 0.4 mg oral capsule (20 sources) alpha-Adrenergic Feliz Start: 2022 take 1 capsule by mouth once daily tamsulosin (FLOMAX) 0.4 mg Take 1 capsule by mouth once daily for 3 days. 3 capsule 0 01/05/2023 Active Comment on above: Take 1 capsule by mo [facility] once daily for 3 days. traMADol hydrochloride 50 mg oral tablet (1 source) Opioid Agonist Start: 2022 End: 2022 take 1 tablet by mouth every six hours as needed traMADol (ULTRAM) 50 mg tablet Indications: Acute postoperative pain Take 1 tablet by mouth every 6 hours as needed for up to 5 days. 10 tablet 0 01/04/2023 01/09/2023 Comment on above: Take 1 tablet by [facility] every 6 hours as needed for up to 5 days. urea 400 mg/ml topical cream (20 sources) Start: 2017 urea (CARMOL) 40 % crea Apply to areas of feet and hands twice daily 198 g 2 04/28/2018 Suspended Comment on above: Apply to areas of fe et and hands twice daily vitamin b12 1 mg/ml injectable solution (11 sources) Vitamin B12 Start: 2021 End: 2022 inject 1 mL by intramuscular injection every three months cyanocobalamin 1,000 mcg/mL Inject 1 mL intramuscularly every 3 months. 1 mL 2 03/31/2022 11/29/2022 Discontinued Comment on above: Inject 1 mL intramus cularly every 3 months. Problems Active Problems Problem Classification Problem Date Documented Da te Episodic/Chronic Abdominal pain (9 sources) Generalized abdominal pain; Translations: [Generalized abdominal pain] Onset: 3 Episodic Acute myocardial infarction (10 sources) Myocardial infarction; Translations: [Non-ST elevation (NSTEMI) myocardial infarction] Onset: 3 09-16-2022 Chronic Allergic reactions (4 sources) Chronic hand eczema; Translations: [Dermatitis, unspecified] 06-08-2019 Episodic Cardiac dysrhythmias (20 sources) Supraventricular tachycardia; Translations: [Supraventricular tachycardia] Onset: 3 Chronic Chronic obstructive pulmonary disease and bronchiectasis (20 sources) Chronic obstructive lung disease; Translations: [Chronic obstructive pulmonary disease, unspecified] Onset: 6 Resolved: 3 07-06-2017 Chronic Conduction disorders (2 sources) Encounter for adjustment and management of automatic implantable cardiac defibrillator; Translations: [Encounter for adjustment and management of automatic implantable cardiac defibrillator] Onset: 4 Chronic Coronary atherosclerosis and other heart disease (20 sources) Coronary artery spasm; Translations: [Angina pectoris with documented spasm] Onset: 3 09-17-2022 Chronic Diabetes mellitus without complication (1 source) Type 2 diabetes mellitus without complications; Translations: [TYPE 2 DM WITHOUT COMPLICATIONS] Onset: 3 Chronic Disorders of lipid metabolism (20 sources) Mixed hyperlipidemia; Translations: [Hyperlipidemia] Onset: 3 Chronic Esophageal disorders (20 sources) Gastroesophageal reflux disease without esophagitis; Translations: [Gastro-esophageal reflux disease without esophagitis] Onset: 3 Chronic Essential hypertension (20 sources) Essential (primary) hypertension; Translations: [Essential hypertension] Onset: 9 Chronic Gastroduodenal ulcer (except hemorrhage) (20 sources) Perforation of stomach; Translations: [Chronic or unspecified gastric ulcer with perforation] Onset: 2 12-13-2021 Chronic Infective arthritis and osteomyelitis (except that caused by tuberculosis or sexually transmitted disease) (20 sources) Reactive arthritis triad; 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, unspecified site] Onset: 3 Episodic Menopausal disorders (1 source) Hormone replacement therapy; Translations: [HORMONE REPLACEMENT THERAPY] Onset: 3 Episodic Mycoses (5 sources) Tinea pedis; Translations: [Tinea pedis] 06-08-2019 Episodic Nausea and vomiting (2 sources) Nausea; Translations: [Nausea] Episodic Nutritional deficiencies (20 sources) Deficiency of macronutrients; Translations: [Mild protein-calorie malnutrition] Onset: 2 Resolved: 4 Chronic Open wounds of head; neck; and trunk (3 sources) Wound of abdomen; Translations: [Unspecified open wound of abdominal wall, unspecified quadrant without penetration into peritoneal cavity, sequela] Onset: 3 06-30-2023 Episodic Osteoarthritis (20 sources) Arthritis; Translations: [Unspecified osteoarthritis, unspecified site] Onset: 7 07-06-2017 Chronic Other acquired deformities (2 sources) Equinus contracture of the ankle; Translations: [Contracture, right ankle] 02-22-2024 Chronic Other aftercare (3 sources) Wound ; Translations: [Encounter for other specified surgical aftercare] 08-05-2023 Episodic Other aftercare (2 sources) Encounter for other specified surgical aftercare; Translations: [Encounter for postoperative wound check] Onset: 4 Episodic Other circulatory disease (2 sources) Cardiac function test normal; Translations: [Normal cardiac ejection fraction] Episodic Other congenital anomalies (20 sources) Keratoderma; 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 of skin] Onset: 8 04-28-2018 Chronic Other connective tissue disease (1 source) Unspecified rotator cuff tear or rupture of left shoulder, not specified as traumatic; Translations: [Unspecified rotator cuff tear or rupture of left shoulder, not specified as traumatic] Onset: 4 Episodic Other connective tissue disease (1 source) Adhesive capsulitis of left shoulder; Translations: [Adhesive capsulitis of left shoulder] Onset: 4 Episodic Other disorders of stomach and duodenum (4 sources) Gastric fistula; 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] Episodic Other gastrointestinal disorders (3 sources) History of sleeve gastrectomy; Translations: [Bariatric surgery status] Episodic Other gastrointestinal disorders (2 sources) History of bariatric surgical procedure; Translations: [Bariatric surgery status] Episodic Other injuries and conditions due to external causes (1 source) Motion sickness; Translations: [Motion sickness, initial encounter] 04-27-2024 Episodic Other nervous system disorders (1 source) Other chronic pain; Translations: [Other chronic pain] Onset: 4 Chronic Other nervous system disorders (2 sources) Mortons neuroma of right foot; Translations: [Lesion of plantar nerve, right lower limb] 02-22-2024 Chronic Other nervous system disorders (2 sources) Postoperative pain ; Translations: [Other acute postprocedural pain] 01-12-2023 Episodic Other nervous system disorders (4 sources) Other acute postprocedural pain; Translations: [Acute postoperative pain] Onset: 3 Episodic Other non-traumatic joint disorders (1 source) Other specific arthropathies, not elsewhere classified, left shoulder; Translations: [Other specific arthropathies, not elsewhere classified, left shoulder] Onset: 4 Chronic Other non-traumatic joint disorders (20 sources) Derangement of left shoulder joint; Translations: [Other specific joint derangements of left shoulder, not elsewhere classified] 05-01-2024 Chronic Other non-traumatic joint disorders (2 sources) Shoulder pain Onset: 4 Episodic Other nutritional; endocrine; and metabolic disorders (20 sources) Obese class I; Translations: [Obesity, unspecified] Onset: 2 12-13-2021 Chronic Other nutritional; endocrine; and metabolic disorders (2 sources) Morbid (severe) obesity due to excess calories; Translations: [Obesity, Class III, BMI 40-49.9 (morbid obesity) (HCC)] Onset: 3 Chronic Other nutritional; endocrine; and metabolic disorders (4 sources) Obesity; Translations: [Obesity, unspecified] 06-08-2019 Chronic Other nutritional; endocrine; and metabolic disorders (2 sources) Body mass index 25-29 - overweight; Translations: [Overweight] Episodic Pulmonary heart disease (2 sources) Pulmonary hypertension, unspecified; Translations: [Pulmonary hypertension, unspecified] Onset: 4 Chronic Residual codes; unclassified (20 sources) Obstructive sleep apnea syndrome; Translations: [Obstructive sleep apnea (adult) (pediatric)] Onset: 6 07-06-2017 Chronic Residual codes; unclassified (3 sources) Obstructive sleep apnea (adult) (pediatric); Translations: [OBSTRUCTIVE SLEEP APNEA] Onset: 8 Chronic Residual codes; unclassified (1 source) Idiopathic sleep related nonobstructive alveolar hypoventilation; Translations: [Idiopathic sleep related nonobstructive alveolar hypoventilation] Onset: 3 Chronic Residual codes; unclassified (20 sources) Edema; Translations: [Edema, unspecified] Onset: 6 07-06-2017 Episodic Residual codes; unclassified (1 source) History of gastrectomy; Translations: [Acquired absence of stomach [part of]] Episodic Residual codes; unclassified (2 sources) History of partial gastrectomy; Translations: [Acquired absence of stomach [part of]] Episodic Residual codes; unclassified (3 sources) Body mass index 20-24 - normal; Translations: [Body mass index (BMI) 23.0-23.9, adult] Episodic Residual codes; unclassified (20 sources) History of arthroscopic procedure on shoulder; Translations: [Other specified postprocedural states] 06-09-2024 Episodic Thyroid disorders (20 sources) Hypothyroidism; Translations: [Hypothyroidism, unspecified] Onset: 6 07-06-2017 Chronic Unclassified (1 source) Finding of shoulder joint; Translations: [Internal derangement of right shoulder] Unclassified (1 source) Patient encounter status; Translations: [Other plastic surgery for unacceptable cosmetic appearance] Onset: 3 07-18-2012 Unclassified (1 source) CONTACT W/AND (SUSP) EXPOS COVID-19; Translations: [CONTACT W/AND (SUSP) EXPOS COVID-19] Onset: 3 Unclassified (1 source) Supraventricular tachycardia, unspecified; Translations: [Supraventricular tachycardia, unspecified] Onset: 4 Past or Other Problems Problem Classification Problem Date Documented Da te Episodic/Chronic Abdominal hernia (20 sources) Incisional hernia; Translations: [Incisional hernia without obstruction or gangrene] Onset: 3 Episodic Administrative/social admission (6 sources) Patient encounter status; Translations: [Dietary counseling and surveillance] Onset: 3 Episodic Cardiac dysrhythmias (4 sources) Bradycardia, unspecified; Translations: [Palpitations] Onset: 4 Episodic Complication of device; implant or graft (3 sources) Infected hernioplasty mesh; Translations: [Infection and inflammatory reaction due to other internal prosthetic devices, implants and grafts, sequela] Onset: 3 Episodic Complications of surgical procedures or medical care (20 sources) Postoperative seroma; Translations: [Postprocedural seroma of skin and subcutaneous tissue following other procedure] Onset: 7 02-08-2017 Episodic Fever of unknown origin (4 sources) Fever, unspecified; Translations: [FEVER UNSPECIFIED] Onset: 2 Episodic Fluid and electrolyte disorders (20 sources) Dehydration; Translations: [Dehydration] Onset: 2 12-13-2021 Episodic Fracture of lower limb (7 sources) Closed fracture of calcaneus; Translations: [Nondisplaced fracture of anterior process of right calcaneus, subsequent encounter for fracture with routine healing] Onset: 4 10-05-2023 Episodic Mood disorders (4 sources) Mood disorders Onset: 3 Resolved: 4 06-17-2023 Nonspecific chest pain (10 sources) Chest pain; Translations: [Chest pain, unspecified] Onset: 3 09-16-2022 Episodic Other aftercare (1 source) Other exterminator (current) drug therapy; Translations: [OTH EDITOR INDEX CURRENT DRUG THERAPY] Onset: 2 Episodic Other circulatory disease (20 sources) H/O: cardiovascular disease; Translations: [Personal history of other diseases of the circulatory system] Onset: 3 Episodic Other circulatory disease (1 source) Personal history of other diseases of the circulatory system; Translations: [History of coronary vasospasm] Onset: 3 Episodic Other connective tissue disease (3 sources) Adhesive capsulitis of left shoulder; Translations: [Adhesive capsulitis of left shoulder] Onset: 4 03-03-2024 Episodic Other connective tissue disease (3 sources) Tear of left rotator cuff; Translations: [Unspecified rotator cuff tear or rupture of left shoulder, not specified as traumatic] Onset: 4 03-03-2024 Episodic Other connective tissue disease (20 sources) Calcific tendinitis of left shoulder; Translations: [Calcific tendinitis of left shoulder] Onset: 4 02-21-2024 Episodic Other connective tissue disease (2 sources) Pain in right foot; Translations: [Pain in right foot] 02-22-2024 Episodic Other connective tissue disease (2 sources) Tendonitis of right ankle; Translations: [Other enthesopathy of right foot and ankle] 02-22-2024 Episodic Other gastrointestinal disorders (2 sources) Bariatric surgery status; Translations: [BARIATRIC SURGERY STATUS] Onset: 3 Episodic Other gastrointestinal disorders (1 source) Perforation of intestine (nontraumatic); Translations: [PERFORATION INTESTINE NONTRAUMATIC] Onset: 2 Episodic Other gastrointestinal disorders (20 sources) Intra-abdominal collection; Translations: [Other ascites] Onset: 3 05-03-2023 Episodic Other gastrointestinal disorders (1 source) Other ascites; Translations: [Abdominal wall fluid collections] Onset: 3 Episodic Other gastrointestinal disorders (1 source) Personal history of other diseases of the digestive system; Translations: [S/P repair of ventral hernia] Onset: 3 Episodic Other gastrointestinal disorders (2 sources) Constipation, unspecified; Translations: [Constipation, unspecified] Onset: 4 Episodic Other lower respiratory disease (4 sources) Dyspnea; Translations: [Shortness of breath] Onset: 1 08-29-2020 Episodic Other nervous system disorders (20 sources) History of uveitis; Translations: [Personal history of other diseases of the nervous system and sense organs] Onset: 8 08-23-2017 Episodic Other nervous system disorders (20 sources) Acute postoperative pain; Translations: [Other acute postprocedural pain] Onset: 3 12-31-2022 Episodic Other non-traumatic joint disorders (20 sources) Multiple joint pain; Translations: [Pain in unspecified joint] Onset: 8 08-23-2017 Episodic Other non-traumatic joint disorders (20 sources) Pain in left shoulder; Translations: [Pain in joint, shoulder region] Onset: 4 08-04-2023 Episodic Other nutritional; endocrine; and metabolic disorders (20 sources) Body mass index 40+ - severely obese; Translations: [Morbid (severe) obesity due to excess calories] Onset: 7 Resolved: 4 07-06-2017 Chronic Other screening for suspected conditions (not mental disorders or infectious disease) (4 sources) Cardiovascular stress test abnormal; Translations: [Abnormal result of other cardiovascular function study] Onset: 9 06-19-2019 Episodic Peritonitis and intestinal abscess (3 sources) Infectious disease of abdomen; Translations: [Peritonitis, unspecified] Onset: 3 01-14-2023 Episodic Residual codes; unclassified (20 sources) Feeding problem; Translations: [Other specified health status] Onset: 2 12-13-2021 Episodic Residual codes; unclassified (20 sources) History of hernia repair; Translations: [Other specified postprocedural states] Onset: 3 12-31-2022 Episodic Residual codes; unclassified (1 source) Other specified postprocedural states; Translations: [S/P repair of ventral hernia] Onset: 3 Episodic Residual codes; unclassified (5 sources) Postmenopausal state; Translations: [Asymptomatic menopausal state] Onset: 4 10-05-2023 Episodic Screening and history of mental health and substance abuse codes (20 sources) Ex-smoker; Translations: [Personal history of tobacco use] Onset: 3 Episodic Comment on above: Quit in 1996; Septicemia (except in labor) (1 source) Sepsis, unspecified organism; Translations: [SEPSIS UNSPECIFIED ORGANISM] Onset: 2 Episodic Superficial injury; contusion (20 sources) Seroma; Translations: [Contusion of abdominal wall, initial encounter] Onset: 7 07-06-2017 Episodic Syncope (2 sources) Syncope and collapse; Translations: [Syncope and collapse] Onset: 3 Episodic Unclassified (1 source) Supraventricular tachycardia, unspecified; Translations: [Supraventricular tachycardia, unspecified] Onset: 4 Results Test Name Value Interpretation Reference Range Facility Office Visiton 05-23-2024 Follow-up visit [id number] Campos Daily 1965 F Date Provider Department Center 05/23/2024 RANJITH URENA CARD [facility] Family History Problem Relation Age of Onset Heart failure Mother Hyperlipidemia Mother Other Father Family Status - Relation Status Age at Mother Father Level of Service:53669 [place] OFFICE/OUTPATIENT ESTABLISHED MOD MDM 30 MIN Normal [facility] ALL CBC WITH AUTO DIFFon BASOPHILS ABSOLUTE AUTO 0 [facility] Basophils/100 WBC (Bld) 0.5 % 0.2 - 2.0 % [facility] Eosinophils/100 WBC (Bld) 1.2 % 0.9 - 7.0 % [facility] Erythrocyte distribution width (RBC) [Ratio] 16 % High 11.0 - 15.0 % [facility] Hematocrit (Bld) [Volume fraction] 36.6 % 36.0 - 48.0 % [facility] Hemoglobin (Bld) [Mass/Vol] 11.4 g/dL Low 12.0 - 16.0 g/dL [facility] IMMATURE GRANULOCYTES ABS AUTO 0.01 [facility] Immature granulocytes/100 WBC (Bld) 0.2 % 0.0 - 0.5 % [facility] Interpretation and review of laboratory results Abnormal [facility] LYMPHOCYTES ABSOLUTE AUTO 1.5 [facility] Lymphocytes/100 WBC (Bld) 25.3 % 20.5 - 60.0 % [facility] MCH (RBC) [Entitic mass] 26.7 pg 26.7 - 34.0 pg [facility] MCHC (RBC) [Mass/Vol] 31.1 g/dL 29.9 - 35.2 g/dL [facility] MCV (RBC) [Entitic vol] 85.7 fL 81.0 - 99.0 fL [facility] MONOCYTES ABSOLUTE AUTO 0.3 [facility] Monocytes/100 WBC (Bld) 4.9 % 1.7 - 12.0 % [facility] NEUTROPHILS ABSOLUTE AUTO 4.1 [facility] Neutrophils/100 WBC (Bld) 67.9 % 43.0 - 75.0 % [facility] Platelet mean volume (Bld) [Entitic vol] 10.3 fL 9.5 - 13.5 fL [facility] EO # 0.1 [facility] PLT 202 [facility] RBC 4.27 [facility] WBC 6.1 [facility] FREE T4on 04-27-2024 Free T4 [Mass/Vol] 0.59 ng/dL Low 0.61-1.60 [facility] Comment on above: Performed By: #### 3 016-3, 3024-7 #### [facility] ([id number]) [address] [place] [address], [facility] [address] [place] [address] SUPERFICIAL WOUND CULTUREon 04-27-2024 Bacteria identified Aer cx Nom (Wound) SPECIMEN NOTES SURGICAL SITE GRAM STAIN 1 to 9 WHITE BLOOD CELLS/LPF 0 to 1 SQUAMOUS EPITHELIAL CELLS/LPF RARE GRAM POSITIVE COCCI CULTURE RESULTS FEW STAPHYLOCOCCUS AUREUS [ S = SUSCEPTIBLE R = RESISTANT I = INTERMEDIATE S-DO = Susceptible-dose dependent NS = Non-suscceptible NO = No Interpretation ] Organism: STAPHYLOCOCCUS AUREUS Antibiotic Interpretation NATALIA Status CEFAZOLIN S F CLINDAMYCIN S 0.25 F OXACILLIN S 0.5 F TRIMETH/SULFAMETHOXAZOLE S <=.5/9.5 F VANCOMYCIN S 1 F DOXYCYCLINE S <=0.5 F Susceptible [facility] Comment on above: Performed By: #### 6 32-0 #### [facility] ([id number]) [address] [place] [address], [address] [address] TSH Qnon 04-27-2024 TSH 8.50 uIU/mL High 0.49-4.67 [facility] Comment on above: Performed By: #### 3 016-3, 3024-7 #### [facility] ([id number]) [address] [place] [address], [facility] [address] [place] [address] Office Visiton 04-07-2024 Follow-up visit [id number] Campos Daily 1965 F Date Provider Department Center 04/07/2024 [facility] Family History Problem Relation Age of Onset Heart failure Mother Hyperlipidemia Mother Other Father Family Status - Relation Status Age at Mother Father Level of Service:[id number] [place] POSTOP FOLLOW UP VISIT RELATED TO ORIGINAL PX Normal [facility] Orders Onlyon 04-06-2024 Orders Only [id number] Campos Daily a L 1965 F Date Provider Department Center 04/06/2024 895-DIANA MEJÍA CASSIUS [facility] Family History Problem Relation Age of Onset Heart failure Mother Hyperlipidemia Mother Other Father Family Status - Relation Status Age at Mother Father Normal [facility] Office Visiton 02-16-2024 Follow-up visit [id number] Campos Daily a L 1965 F Date Provider Department Center 02/16/2024 166-RANJITH BALES CASSIUS [facility] Family History Problem Relation Age of Onset Heart failure Mother Hyperlipidemia Mother Other Father Family Status - Relation Status Age at Mother Father Level of Service:65023 [place] OFFICE/OUTPATIENT ESTABLISHED MOD MDM 30 MIN [facility] HPon 02-07-2024 [facility] Electrophysiology Consult Note Reason for visit: AVNRT s/p ablation, 02/07/24 Pt here for PPM. 12/21/23 Patient here for follow up [facility] ED. She gets lightheaded with episodes of palpitations. Denies chest pain and SOB. She feel tired and dizzy when HR is slow but feel good when walking and no issues. When she was in ED, she was symptomatic as noted with EKG below. EKG 12/14/23 12/13/23 09/28/23 30-day event monitor did reveal presence of nonsustained atrial tachycardia however no A-fib or VT was seen. There were occasional PACs and PVCs noted. 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 Discussed since unable tolerate AV nancy blocking agents we need to consider EP study and will have her see dr. Neal as previously mentioned. 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 neal HPI: Yari Daily is a 58 y.o. 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 She was recently admitted for NSTEMI with cardiac cath that revealed angiographically normal coronary arteries normal LVEF. There is an echocardiogram 09/2022 that is reflected in documentation but we are pending receiving the results. She was at cardiac rehab where there was concern for SVT event/ A-fib. 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 She was on Ranexa for chest pain but it was determined that her symptoms were related to SVT and Ranexa was discontinued. Since then she was seen by Linda YANEZ and Lopressor was increased to 25mg Q and she has felt better. Event monitor placed from 01/06/2023 to 02/05/2023 revealed presence of SVT noted on 01/14/2023 at 11:26 AM consistent with what appeared to be narrow complex tachycardia with short RP interval likely AVNRT. no A-fib or VT was seen and occasional PVCs was noted. Medications: Aspirin 81 mg, Synthroid 100 mcg, metoprolol succinate 25 mg, pravastatin 20 mg ECG 10/06/2022 normal sinus rhythm ECG 01/07/2020 normal sinus rhythm with nonspecific T wave abnormality Echocardiogram 02/12/2023 Labs 01/03/2023 BMP unremarkable BUN 11, creatinine 1.69, K4.4, GFR 102 Refer to media tab for ECG Strips from the medical center rehab PMH: Past Medical History: Diagnosis Date Abnormal ECG AVNRT (AV nancy re-entry tachycardia) (CMS/HCC) Myocardial infarction (CMS/HCC) Vasospastic angina (CMS/HCC) PSH: Past Surgical History: Procedure Laterality Date BARIATRIC SURGERY CARDIAC CATHETERIZATION HERNIA MESH REMOVAL SH: Social Determinants of Health Tobacco Use: Medium Risk (12/16/2023) Patient History Smoking Tobacco Use: Former Smokeless Tobacco Use: Never Passive Exposure: Not on file Alcohol Use: Not on file Financial Resource Strain: Low Risk (12/16/2023) Overall Financial Resource Strain (CARDIA) Difficulty of Paying Living Expenses: Not hard at all Food Insecurity: No Food Insecurity (12/16/2023) Hunger Vital Sign Worried About Running Out of Food in the Last Year: Never true Ran Out of Food in the Last Year: Not on file Transportation Needs: No Transportation Needs (12/16/2023) Transportation Lack of Transportation (Medical): No Lack of Transportation (Non-Medical): Not on file Physical Activity: Not on file Stress: Not on file Social Connections: Not on file Intimate Partner Violence: Unknown (12/16/2023) Humiliation, Afraid, Rape, and Kick questionnaire Fear of Current or Ex-Partner: No Emotionally Abused: Not on file Physically Abused: Not on file Sexually Abused: Not on file Depression: Not on file Housing Stability: Low Risk (12/16/2023) Housing Stability Vital Sign Unable to Pay for Housing in the Last Year: Not on file Number of Places Lived in the Last Year: Not on file Unstable Housing in the Last Year: No Utilities: Not At Risk (12/16/2023) [facility] Utilities Threatened with loss of utilities: No Allergies: Allergies Allergen Reactions Codeine Anaphylaxis Tolerated hydromorphone 03/2022 Cephalexin Hives and Other Other reaction(s): Other: See Comments Peeling of skin Peeling of skin. Has (more content not included)... [facility] NURSNOTEon 02-07-2024 NURSNOTE RN educated pt on d/ c instructions. RN encouraged pt to voice any questions or concerns. Pt verbalizes no questions or concerns at this time. Pt was wheeled off of unit with all of belongings. [facility] NURSNOTE CHG wipes and betadi ne nasal swabs completed. [facility] Orders Onlyon 01-26-2024 Orders Only [id number] Campos Daily 1965 Date Provider Department Center 01/26/2024 ZORAN TEE [facility] Family History Problem Relation Age of Onset Heart failure Mother Hyperlipidemia Mother Other Father Family Status - Relation Status Age at Mother Father Normal [facility] Orders Onlyon 12-30-2023 Orders Only [id number] Campos Daily a L 1965 Provider Department Center 12/30/2023 DIANA CHUN CASSIUS [facility] Family History Problem Relation Age of Onset Heart failure Mother Hyperlipidemia Mother Other Father Family Status - Relation Status Age at Mother Father Normal [facility] Office Visiton 12-21-2023 Follow-up visit [id number] Campos Daily L 1965 Provider Department Center 12/21/2023 SOLOMON KNAPP CASSIUS [facility] Family History Problem Relation Age of Onset Heart failure Mother Hyperlipidemia Mother Other Father Family Status - Relation Status Age at Mother Father Level of Service:90544 [place] OFFICE/OUTPATIENT ESTABLISHED LOW MDM 20 MIN [facility] 12-18-2023 30 The patient is Moder ately Stable - Low risk of patient condition declining or worsening The patient's goals for the shift include comfort The clinical goals for the shift include VSS Over the shift, the patient did not make progress toward the following goals. Barriers to progression include na. Recommendations to address these barriers include na. [facility] 12-17-2023 30 The patient is Moder ately Stable - Low risk of patient condition declining or worsening The patient's goals for the shift include Comfort The clinical goals for the shift include VSS/Safety Problem: Pain - Adult Goal: Verbalizes/displays adequate comfort level or baseline comfort level Outcome: Progressing Problem: Safety - Adult Goal: Free from fall injury Outcome: Progressing Problem: Discharge Planning Goal: Discharge to home or other facility with appropriate resources Outcome: Progressing Problem: Chronic Conditions and Co-morbidities Goal: Patient's chronic conditions and co-morbidity symptoms are monitored and maintained or improved Outcome: Progressing Normal [facility] 30 Daily Case Managemen t Update Multidisciplinary rounds have been completed. Barriers to Discharge: Pending TTE; plan to discharge home when medically cleared. Diet: Dietary Orders (From admission, onward) Start Ordered 12/16/23 1422 Regular Diet Heart Healthy/HTN, CABG,Stroke, (2gNA, low fat, low cholesterol) Diet effective now Question Answer Comment Room Service? Yes Fat restriction: Heart Healthy/HTN, CABG,Stroke, (2gNA, low fat, low cholesterol) 12/16/23 1427 Physician Expected Discharge Date: 12/18/2023 Discharge Delays: Procedure Delayed/Cancelled [120] PT Six Click Score: 24 OT Six Click Score: New Consults: Consult Orders (From admission, onward) Start Ordered 12/16/23 1417 Inpatient consult to Hospitalist Once Specialty: Internal Medicine Provider: (Not yet assigned) Question Answer Comment Consulting Group HOSPITALIST (ADMIT/FLOAT) Reason for Consult? admission Level of Consultation Relations Coordinator assumes full responsibility 12/16/23 1416 Normal [facility] 30 The patient is Moder ately Stable - Low risk of patient condition declining or worsening The patient's goals for the shift include talk to cardiology/comfort The clinical goals for the shift include VSS/safety Problem: Pain - Adult Goal: Verbalizes/displays adequate comfort level or baseline comfort level Outcome: Progressing Flowsheets (Taken 12/17/2023 0748) Verbalizes/displays adequate comfort level or baseline comfort level: Encourage patient to monitor pain and request assistance Assess pain using appropriate pain scale Administer analgesics based on type and severity of pain and evaluate response Implement non-pharmacological measures as appropriate and evaluate response Consider cultural and social influences on pain and pain management Notify Licensed Independent Practitioner if interventions unsuccessful or patient reports new pain Problem: Safety - Adult Goal: Free from fall injury Outcome: Progressing Flowsheets (Taken 12/17/2023 0900) Free from fall injury: Assess patient frequently for physical needs Identify cognitive and physical deficits and behaviors that affect risk of falls [place] fall precautions as indicated by assessment Educate patient/family on patient safety, including physical limitations Problem: Discharge Planning Goal: Discharge to home or other facility with appropriate resources Outcome: Progressing Flowsheets (Taken 12/17/2023 0630) Discharge to home or other facility with appropriate resources: Arrange for needed discharge resources and transportation as appropriate Identify barriers to discharge with patient and caregiver Identify discharge learning needs (meds, wound care, etc) Arrange for interpreters to assist at discharge as needed Problem: Chronic Conditions and Co-morbidities Goal: Patient's chronic conditions and co-morbidity symptoms are monitored and maintained or improved Outcome: Progressing Flowsheets (Taken 12/17/2023 0630) Care Plan - Patient's Chronic Conditions and Co-Morbidity Symptoms are Monitored and Maintained or Improved: Monitor and assess patient's chronic conditions and comorbid symptoms for stability, deterioration, or improvement Collaborate with multidisciplinary team to address chronic and comorbid conditions and prevent exacerbation or deterioration Update acute care plan with appropriate goals if chronic or comorbid symptoms are exacerbated and prevent overall improvement and discharge Patient denies pain this shift. Patient repositions to increase comfort levels. Patient does complain of heart palpitations-cardiology aware. Patient free from falls and physical injury. Patient discharge planning continues to be ongoing. Normal [facility] BASIC METABOLIC PANELon 12-03 Anion gap [Moles/Vol] 12 mmol/L Normal 7-20 [facility] Comment on above: Performed By: #### L [id number] #### [facility] ([facility]) [address] [place] [address] Calcium [Mass/Vol] 8.8 mg/dL Normal 8.6-10.3 [facility] Comment on above: Performed By: #### L [id number] #### [facility] ([facility]) [address] [place] [address] Chloride [Moles/Vol] 108 mmol/L High 98-107 [facility] Comment on above: Performed By: #### L [id number] #### [facility] ([facility]) [address] [place] [address] CO2 [Moles/Vol] 25 mmol/L Normal 21-31 [facility] Comment on above: Performed By: #### L [id number] #### [facility] ([facility]) [address] [place] [address] Creatinine [Mass/Vol] 0.60 mg/dL Normal 0.60-1.20 [facility] Comment on above: Performed By: #### L [id number] #### [facility] ([facility]) [address] [place] [address] GLOMERULAR FILTRATION RATE ML/MIN/1.73 SQ M.PREDICTED 104.6 mL/min/1.73m*2 Normal >60.0 [facility] Comment on above: Result Comment: The [facility]???s estimated glomerular filtration rate (eGFR) will no longer include consideration of race in its calculation. The National Kidney Foundation???s eGFR Task Force developed new recommendations for the estimation of the glomerular filtration rate in the [place] They recommend immediate implementation of the new equation refit without the race variable in all laboratories because the calculation does not include race. In addition to not including race in the calculation and reporting, it included diversity in its development, and has acceptable performance characteristics and potential consequences that do not disproportionately affect any one group of individuals. Performed By: #### L [id number] #### [facility] ([facility]) [address] [place] [address] Glucose [Mass/Vol] 87 mg/dL Normal 70-100 [facility] Comment on above: Performed By: #### L [id number] #### [facility] ([facility]) [address] [place] [address] Potassium [Moles/Vol] 4.3 mmol/L Normal 3.5-5.1 [facility] Comment on above: Performed By: #### L [id number] #### [facility] ([facility]) [address] [place] [address] Sodium [Moles/Vol] 141 mmol/L Normal 136-145 [facility] Comment on above: Performed By: #### L [id number] #### [facility] ([facility]) [address] [place] [address] Urea nitrogen [Mass/Vol] 19 mg/dL Normal 7-25 [facility] Comment on above: Performed By: #### L [id number] #### [facility] ([facility]) [address] [place] [address] UREA NITROGEN/CREATININE (MASS RATIO) IN SER/PLAS 31.7 Normal [facility] Comment on above: Performed By: #### L [id number] #### [facility] ([facility]) [address] [place] [address] CBCon 12-17-2023 Erythrocyte distribution width (RBC) [Ratio] 16.5 % High 11.5-15.0 [facility] Comment on above: Performed By: #### L [id number] ####[facility] ([facility])[address] [place] [address] ERYTHROCYTE MEAN CORPUSCULAR HEMOGLOBIN CONCENTRATION (G/DL) BY AUTOMATED 31.0 g/dL Low 32.0-35.0 [facility] Comment on above: Performed By: #### L [id number] ####[facility] ([facility])[address] [place] [address] Hematocrit (Bld) [Volume fraction] 37.4 % Normal 36.0-48.0 [facility] Comment on above: Performed By: #### L [id number] ####[facility] ([facility])[address] [place] [address] Hemoglobin (Bld) [Mass/Vol] 11.6 g/dL Low 12.0-15.0 [facility] Comment on above: Performed By: #### L [id number] ####[facility] ([facility])[address] [place] [address] MCH (RBC) [Entitic mass] 26.3 pg Low 27.0-33.0 [facility] Comment on above: Performed By: #### L [id number] ####[facility] [place] [address] MCV (RBC) [Entitic vol] 84.8 fL Normal 82.0-98.0 [facility] Comment on above: Performed By: #### L [id number] ####[facility] ([facility])[address] [place] [address] PLATELETS (10*3/UL) IN BLOOD AUTOMATED COUNT 235 10*3/uL Normal 150-400 [facility] Comment on above: Performed By: #### L [id number] ####[facility] [place] [address] RBC (Bld) [#/Vol] 4.41 10*6/uL Normal 3.80-5.00 [facility] Comment on above: Performed By: #### L [id number] ####[facility] ([facility])[address] [place] [address] WBC (Bld) [#/Vol] 4.96 10*3/uL Normal 4.00-10.60 [facility] Comment on above: Performed By: #### L [id number] ####[facility] ([facility]ER)[address] [place] [address] CONSULTon 12-17-2023 CONSULT ------ -- Attestation signed by Nita Hartley MD at 01/20/2024 7:02 PM I personally saw and examined the patient on the same date of service as the resident/fellow. I discussed the findings and therapeutic plan with the resident/fellow. Plan of care was discussed with patient, and patient is agreeable with plan. I agree with the documentation, except for any edits/updates below. Teaching Physician's Revisions: none Nita Hartley MD MD Cardiology -- Cardiology Consult Note Reason for Consult: Palpitations HPI: Yari Daily is a 58 y.o. female patient is presenting for palpitations. Past medical history includes: NSTEMI September 2022 with cardiac cath revealing angiographically normal course and normal LVEF was considered likely due to vasospasm Gastric bypass surgery Hernia repair Former smoker quit 1996 Hypothyroidism Patient had a procedure [SVT ablation-AVNRT] done by Dr. Neal last week. Patient reports that she started experiencing palpitations associated with dizziness and lightheadedness since then. She reports that she was hospitalized at [facility] for one day, for which she was discharged on an event monitor. Patient also reports that her synthroid med has been increased last week. Patient reports that she usually takes her thyroid medications with other meds. Labs showed low Free T4 and elevated TSH with low Mag. [TSH-14.80 Ft4-0.62]. DATE OF PROCEDURE: 12/08/2023 PERFORMING PHYSICIAN: Dr. Solomon Neal INDICATIONS FOR PROCEDURE: 1. SVT CONSENT: Patient LOCATION: EP Lab PROCEDURAL SEDATION: Versed and Fentanyl. Moderate sedation was administered by the sedation nurse under my supervision and noted in the anesthesia log. Intraprocedural face to face sedation time 82min. Monitoring: Cardiac telemetry, Blood pressure, continuous pulse oxymetry. FLUROSCOPY: 0s EBL: 10cc SPECIMEN REMOVED: None PREPARATION: Preoperative antibiotics IV Ancef was administered. PROCEDURES PERFORMED: 1. Ultrasound guided vascular access for venous sheaths as documented below in procedure note. 2. Comprehensive EP study and catheter ablation for AVNRT. This includes right atrial recording and pacing, His bundle recording and right and left ventricular recording and pacing. 3. EP 3D mapping. 4. Coronary sinus recording and pacing to induce arrhythmia. 5. Induction of arrythmia with Isuprel and verification of ablation results. 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 She was recently admitted for NSTEMI with cardiac cath that revealed angiographically normal coronary arteries normal LVEF. There is an echocardiogram 09/2022 that is reflected in documentation but we are pending receiving the results. She was at cardiac rehab where there was concern for SVT event/ A-fib. she was seen by [facility] cardiology who reviewed the strips and said it is not A-fib and likely SVT/AVNRT and recommended no need for anticoagulation. She was on Ranexa for chest pain but it was determined that her symptoms were related to SVT and Ranexa was discontinued. She had event monitor that revealed likely AVNRT and another time drew non sustained AT. She has now come for EP study and ablation. The risks, benefits and alternatives of the procedure were discussed with the patient and family who agreed to proceed. Please refer to my consult note for details of the discussion and of indications. Patient was brought to the EP lab in the post absorptive state. A procedural pause was performed verifying the patient, the procedure. The right and left groins were prepped and draped in the usual sterile fashion. Preoperative antibiotics IV Ancef was administered. Ultrasound was used to image the right and left femoral veins and it was noted to be patent and this was used for vessel entry as noted below. After infiltration with 1% lidocaine, 4 venous sheaths were placed in the right. 4000U Heparin bolus was given and bolus given subsequently to target ACT above 250. Details of catheters placed as follows. RFV: 6Fx2 CRD2 to His, Quad to RV, 8Fx 2 EZ steer to CS, SL1 for Thermocool irrigated catheter. Once catheters were in position in RV, RA, CS, we decided to proceed with EP study. At baseline, AH and HV was 130ms and 47ms respectively. VEST was performed and VA conduction was noted with VA block at 600/410ms. No evidence of retrograde accessory pathway confirmed with presence of retrograde RBBB. AEST (more content not included)... Normal [facility] MAGNESIUMon 12-17-2023 Magnesium [Mass/Vol] 1.9 mg/dL Normal 1.9-2.7 [facility] Comment on above: Performed By: #### L [id number] ####[facility] ([facility])[address] [place] [address] 30on 12-16-2023 30 The patient is Moder ately Stable - Low risk of patient condition declining or worsening The patient's goals for the shift include Comofrt/rest The clinical goals for the shift include Stable vital signs Problem: Pain - Adult Goal: Verbalizes/displays adequate comfort level or baseline comfort level Outcome: Progressing Problem: Safety - Adult Goal: Free from fall injury Outcome: Progressing Flowsheets (Taken 12/16/2023 2200) Free from fall injury: Assess patient frequently for physical needs Problem: Discharge Planning Goal: Discharge to home or other facility with appropriate resources Outcome: Progressing Problem: Chronic Conditions and Co-morbidities Goal: Patient's chronic conditions and co-morbidity symptoms are monitored and maintained or improved Outcome: Progressing Normal [facility] 30 The patient is Moder ately Stable - Low risk of patient condition declining or worsening The patient's goals for the shift include comfort/rest The clinical goals for the shift include stable vital signs O Normal [facility] CBC WITH AUTO DIFFERENTIALon 12-16-2023 Basophils (Bld) [#/Vol] 0.03 10*3/uL Normal 0.00-0.20 [facility] Comment on above: Performed By: #### L [id number] #### [facility] ([facility]) [address] [place] [address] Basophils/100 WBC (Bld) 0.6 % Normal 0.0-1.0 [facility] Comment on above: Performed By: #### L [id number] #### [facility] ([facility]) [address] [place] [address] Eosinophils (Bld) [#/Vol] 0.10 10*3/uL Normal 0.00-0.50 [facility] Comment on above: Performed By: #### L [id number] #### [facility] ([facility]) [address] [place] [address] Eosinophils/100 WBC (Bld) 1.9 % Normal 0.0-6.0 [facility] Comment on above: Performed By: #### L [id number] #### [facility] ([facility]) [address] [place] [address] Erythrocyte distribution width (RBC) [Ratio] 16.2 % High 11.5-15.0 [facility] Comment on above: Performed By: #### L [id number] #### [facility] ([facility]) [address] [place] [address] ERYTHROCYTE MEAN CORPUSCULAR HEMOGLOBIN CONCENTRATION (G/DL) BY AUTOMATED 31.5 g/dL Low 32.0-35.0 [facility] Comment on above: Performed By: #### L [id number] #### [facility] ([facility]) [address] [place] [address] Hematocrit (Bld) [Volume fraction] 35.9 % Low 36.0-48.0 [facility] Comment on above: Performed By: #### L [id number] #### [facility] ([facility]) [address] [place] [address] Hemoglobin (Bld) [Mass/Vol] 11.3 g/dL Low 12.0-15.0 [facility] Comment on above: Performed By: #### L [id number] #### [facility] ([facility]) [address] [place] [address] Immature granulocytes (Bld) [#/Vol] 0.01 10*3/uL Normal 0.00-0.20 [facility] Comment on above: Performed By: #### L [id number] #### [facility] ([facility]) [address] [place] [address] Immature granulocytes/100 WBC (Bld) 0.2 % Normal 0.0-1.0 [facility] Comment on above: Performed By: #### L [id number] #### [facility] ([facility]) [address] [place] [address] Lymphocytes (Bld) [#/Vol] 1.55 10*3/uL Normal 1.20-4.00 [facility] Comment on above: Performed By: #### L [id number] #### [facility] ([facility]) [address] [place] [address] Lymphocytes/100 WBC (Bld) 29.1 % Normal 20.0-45.0 [facility] Comment on above: Performed By: #### L [id number] #### [facility] [address] [place] [address] MCH (RBC) [Entitic mass] 26.1 pg Low 27.0-33.0 [facility] Comment on above: Performed By: #### L [id number] #### [facility] [address] [place] [address] MCV (RBC) [Entitic vol] 82.9 fL Normal 82.0-98.0 [facility] Comment on above: Performed By: #### L [id number] #### [facility] ([facility]) [address] [place] [address] Monocytes (Bld) [#/Vol] 0.37 10*3/uL Normal 0.10-1.00 [facility] Comment on above: Performed By: #### L [id number] #### [facility] ([facility]) [address] [place] [address] Monocytes/100 WBC (Bld) 7.0 % Normal 5.0-12.0 [facility] Comment on above: Performed By: #### L [id number] #### [facility] ([facility]) [address] [place] [address] Neutrophils (Bld) [#/Vol] 3.26 10*3/uL Normal 1.60-7.60 [facility] Comment on above: Performed By: #### L [id number] #### [facility] ([facility]) [address] [place] [address] Neutrophils/100 WBC (Bld) 61.2 % Normal 40.0-72.0 [facility] Comment on above: Performed By: #### L [id number] #### [facility] ([facility]) [address] [place] [address] NRBC (PER 100 WBCS) BY AUTOMATED COUNT 0.0 % Normal 0 [facility] Comment on above: Performed By: #### L [id number] #### [facility] ([facility]) [address] [place] [address] PLATELETS (10*3/UL) IN BLOOD AUTOMATED COUNT 233 10*3/uL Normal 150-400 [facility] Comment on above: Performed By: #### L [id number] #### [facility] ([facility]) [address] [place] [address] RBC (Bld) [#/Vol] 4.33 10*6/uL Normal 3.80-5.00 [facility] Comment on above: Performed By: #### L [id number] #### [facility] ([facility]) [address] [place] [address] WBC (Bld) [#/Vol] 5.32 10*3/uL Normal 4.00-10.60 [facility] Comment on above: Performed By: #### L [id number] #### [facility] ([facility]) [address] [place] [address] COMPREHENSIVE METABOLIC PANE Dilip 12-16-2023 Albumin [Mass/Vol] 3.8 g/dL Normal 3.5-5.7 [facility] Comment on above: Performed By: #### L [id number] #### [facility] ([facility]) [address] [place] [address] ALP [Catalytic activity/Vol] 59 U/L Normal 34-104 [facility] Comment on above: Performed By: #### L [id number] #### [facility] ([facility]) [address] [place] [address] ALT [Catalytic activity/Vol] 33 U/L Normal 7-52 [facility] Comment on above: Performed By: #### L [id number] #### [facility] ([facility]) [address] [place] [address] Anion gap [Moles/Vol] 12 mmol/L Normal 7-20 [facility] Comment on above: Performed By: #### L [id number] #### [facility] ([facility]) [address] [place] [address] AST [Catalytic activity/Vol] 26 U/L Normal 13-39 [facility] Comment on above: Performed By: #### L [id number] #### [facility] ([facility]) [address] [place] [address] Bilirubin [Mass/Vol] 0.5 mg/dL Normal 0.3-1.0 [facility] Comment on above: Performed By: #### L [id number] #### [facility] ([facility]) [address] [place] [address] Calcium [Mass/Vol] 9.1 mg/dL Normal 8.6-10.3 [facility] Comment on above: Performed By: #### L [id number] #### [facility] ([facility]) [address] [place] [address] Chloride [Moles/Vol] 106 mmol/L Normal 98-107 [facility] Comment on above: Performed By: #### L [id number] #### [facility] ([facility]) [address] [place] [address] CO2 [Moles/Vol] 24 mmol/L Normal 21-31 [facility] Comment on above: Performed By: #### L [id number] #### [facility] ([facility]) [address] [place] [address] Creatinine [Mass/Vol] 0.66 mg/dL Normal 0.60-1.20 [facility] Comment on above: Performed By: #### L [id number] #### [facility] ([facility]) [address] [place] [address] GLOMERULAR FILTRATION RATE ML/MIN/1.73 SQ M.PREDICTED 102.3 mL/min/1.73m*2 Normal >60.0 [facility] Comment on above: Result Comment: The [facility]???s estimated glomerular filtration rate (eGFR) will no longer include consideration of race in its calculation. The National Kidney Foundation???s eGFR Task Force developed new recommendations for the estimation of the glomerular filtration rate in the [place] They recommend immediate implementation of the new equation refit without the race variable in all laboratories because the calculation does not include race. In addition to not including race in the calculation and reporting, it included diversity in its development, and has acceptable performance characteristics and potential consequences that do not disproportionately affect any one group of individuals. Performed By: #### L [id number] #### [facility] ([facility]) [address] [place] [address] Glucose [Mass/Vol] 86 mg/dL Normal 70-100 [facility] Comment on above: Performed By: #### L [id number] #### [facility] [address] [place] [address] Potassium [Moles/Vol] 4.2 mmol/L Normal 3.5-5.1 [facility] Comment on above: Performed By: #### L [id number] #### [facility] [address] [place] [address] Protein [Mass/Vol] 6.6 g/dL Normal 6.0-8.3 [facility] Comment on above: Performed By: #### L [id number] #### [facility] ([facility] [address] [place] [address] Sodium [Moles/Vol] 138 mmol/L Normal 136-145 [facility] Comment on above: Performed By: #### L [id number] #### [facility] ([facility]) [address] [place] [address] Urea nitrogen [Mass/Vol] 18 mg/dL Normal 7-25 [facility] Comment on above: Performed By: #### L [id number] #### [facility] ([facility]) [address] [place] [address] UREA NITROGEN/CREATININE (MASS RATIO) IN SER/PLAS 27.3 Normal [facility] Comment on above: Performed By: #### L [id number] #### [facility] ([facility]) [address] [place] [address] EDPROVon 12-16-2023 EDPROV HPI Chief Complaint Patient presents with Palpitations States she has been feeling missed beats and she is on a heart monitor. States [facility] told her to come to [facility] HPI 58-year-old female status post cardiac ablation for SVT presents emergency department with reoccurring palpitations. She states that it started on Wednesday and have been occurring at random. She was at her cardiology office who wanted her evaluated our emergency department. She denies any syncopal episodes but does state that she occasionally gets lightheaded. She states that her heart rate does not go above normal but she does feel the palpitations [place] Coma Scale Score: 15 Patient History Past Medical History: Diagnosis Date Abnormal ECG AVNRT (AV nancy re-entry tachycardia) (CMS/HCC) Myocardial infarction (CMS/HCC) Vasospastic angina (CMS/HCC) Past Surgical History: Procedure Laterality Date BARIATRIC SURGERY CARDIAC CATHETERIZATION HERNIA MESH REMOVAL Family History Problem Relation Name Age of Onset Heart failure Mother Hyperlipidemia Mother Other (pacemaker) Father Social History Tobacco Use Smoking status: Former Types: Cigarettes Quit date: 1999 Years since quittin.4 Smokeless tobacco: Never Vaping Use Vaping Use: Never used Substance Use Topics Alcohol use: Not Currently Drug use: Never Review of Systems Review of Systems Cardiovascular: Positive for palpitations. Physical Exam ED Triage Vitals [12/16/23 1043] Temp Heart Rate Resp BP 36.3 ???C (97.4 ???F) 65 18 125/75 SpO2 Temp src Heart Rate Source Patient Position 99 % -- -- -- BP Location FiO2 (%) -- -- Physical Exam Vitals and nursing note reviewed. Constitutional: General: She is not in acute distress. Appearance: She is well-developed. HENT: Head: Normocephalic and atraumatic. Eyes: Conjunctiva/sclera: Conjunctivae normal. Cardiovascular: Rate and Rhythm: Normal rate and regular rhythm. Heart sounds: No murmur heard. Pulmonary: Effort: Pulmonary effort is normal. No respiratory distress. Breath sounds: Normal breath sounds. Abdominal: Palpations: Abdomen is soft. Tenderness: There is no abdominal tenderness. Musculoskeletal: General: No swelling. Cervical back: Neck supple. Skin: General: Skin is warm and dry. Capillary Refill: Capillary refill takes less than 2 seconds. Neurological: Mental Status: She is alert. Psychiatric: Mood and Affect: Mood normal. Procedures ED Course & MDM ED Course as of 12/16/23 1840 [place] Dec 16, [address] Neal performed cardioversion 12/07 [LH] 1238 XR chest 1 view IMPRESSION: No evidence of acute cardiopulmonary pathology. Electronically signed: Giuliano Christensen MD. [LH] 9424 I believe would benefit from hospitalization. She came in with palpitations is status post 1 week from a cardiac ablation for SVT. She is complaining of on and off palpitations so she contacted her temperature regulator pyrometer her temperature regulator pyrometer told her to come here. I spoke with the cardiology team who recommends hospital admission with a cardiac consult .I reached out to the hospitalist group who is agreeable to admission. [LH] ED Course User Index [LH] Zoran Lopez MD Diagnoses as of 12/16/23 1840 Palpitation Medical Decision Making I, Richard Dexter (-scribe), documented on behalf of Dr. Xavier on 12/16/23 at 6:40 PM. Yari Daily is a 58 y.o. y.o. female presenting to the ED with chief complaint of Palpitations. Dr. Xavier personally saw and evaluated the patient. Dr. Xavier discussed the management with the resident, Dr. Lopez. Dr. Xavier reviewed the resident's note and agrees with the documentation. Dr. Xavier performed the substantive portion of the (history/ Physical exam/ MDM). Exam findings as follows: Awake, in NAD, Alert and oriented x3, head normocephalic and atraumatic, PERRL, EOM intact, neck supple and full ROM, HRRR, in no respiratory distress, abd soft, non-tender, non-distended, ROM normal, no lower extremity edema, skin warm and dry, no focal deficit Attestation: I performed a history and physical exam on this patient and discussed his or her management with the resident. I reviewed the resident's note and agree with the documented findings and plan of care with the following exceptions: None Provider Statement ROBB: Provider Statement 2nd Scribe. By electronically signing this emergency patient record, the Emergency Physician/ENVIRONMENTAL SAFETY SPECIALIST/PA-C attests that all entries made into the electronic medical record by the scribe prior to the Physician/ENVIRONMENTAL SAFETY SPECIALIST/PA-C signature reflect an accurate accounting of the evaluation and care rendered by that Emergency Physician/ENVIRONMENTAL SAFETY SPECIALIST/PA-C. The Emergency Physician/ENVIRONMENTAL SAFETY SPECIALIST/PA-C assumes full responsibility for those entries. The Emergency Physician/ENVIRONMENTAL SAFETY SPECIALIST/PA-C also attests that any patient testing or treatment that was instituted by nursing staff. oZran Lopez MD Resident (more content not included)... Normal [facility] MAGNESIUMon 12-16-2023 Magnesium [Mass/Vol] 1.8 mg/dL Low 1.9-2.7 [facility] Comment on above: Performed By: #### L [id number] ####[facility] ([facility])[address] [place] [address] T4, FREEon 12-16-2023 THYROXINE (T4) FREE (NG/DL) IN SER/PLAS 0.62 ng/dL Low 0.71-1.85 [facility] Comment on above: Performed By: #### L [id number] #### [facility] ([facility]) [address] [place] [address] TROPONIN Ion 12-16-2023 Troponin I.cardiac [Mass/Vol] 0.02 ng/mL Normal 0.00-0.04 [facility] Comment on above: Performed By: #### L [id number] #### [facility] ([facility]) [address] [place] [address] TSH3 REFLEX TO FT4on 024 THYROTROPIN (MIU/L) IN SER/PLAS BY DETECTION LIMIT <= 0.05 MIU/L 14.80 mIU/L High 0.34-5.60 [facility] Comment on above: Performed By: #### L [id number] #### [facility] ([facility]) [address] [place] [address] 36on 12-15-2023 36 Pt contacted [facility] cardiology per instructions in message thread, however, pt is seen at the [facility] office location. Message should be addressed with [facility] staff. Patient can be contacted [phone]. Thank you This phone message was created by the Ambulatory [facility] staff. If you need decision support manager follow up regarding this patient, please make your appropriate clinic staff member aware. Thank you. Normal [facility] Telephoneon 12-15-2023 Telephone [id number] Campos Daily 1965 F Date Provider Department Center 12/15/2023 DINAA CHUN BH CARD [facility] Family History Problem Relation Age of Onset Heart failure Mother Hyperlipidemia Mother Other Father Family Status - Relation Status Age at Mother Father Normal [facility] 12-08-2023 [facility] Electrophysiology Consult Note Reason for visit: SVT, possible AVNRT 12/08/23 Pt here for EP study and ablation 09/28/23 30-day event monitor did reveal presence of nonsustained atrial tachycardia however no A-fib or VT was seen. There were occasional PACs and PVCs noted. 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 Discussed since unable tolerate AV nancy blocking agents we need to consider EP study and will have her see dr. Neal as previously mentioned. 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 neal HPI: Yari Daily is a 58 y.o. 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 She was recently admitted for NSTEMI with cardiac cath that revealed angiographically normal coronary arteries normal LVEF. There is an echocardiogram 09/2022 that is reflected in documentation but we are pending receiving the results. She was at cardiac rehab where there was concern for SVT event/ A-fib. 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 She was on Ranexa for chest pain but it was determined that her symptoms were related to SVT and Ranexa was discontinued. Since then she was seen by Linda YANEZ and Lopressor was increased to 25mg Q and she has felt better. Event monitor placed from 01/06/2023 to 02/05/2023 revealed presence of SVT noted on 01/14/2023 at 11:26 AM consistent with what appeared to be narrow complex tachycardia with short RP interval likely AVNRT. no A-fib or VT was seen and occasional PVCs was noted. Medications: Aspirin 81 mg, Synthroid 100 mcg, metoprolol succinate 25 mg, pravastatin 20 mg ECG 10/06/2022 normal sinus rhythm ECG 01/07/2020 normal sinus rhythm with nonspecific T wave abnormality Echocardiogram 02/12/2023 Labs 01/03/2023 BMP unremarkable BUN 11, creatinine 1.69, K4.4, GFR 102 Refer to media tab for ECG Strips from the medical center rehab PMH: Past Medical History: Diagnosis Date Abnormal ECG AVNRT (AV nancy re-entry tachycardia) (CMS/HCC) Myocardial infarction (CMS/HCC) Vasospastic angina (CMS/HCC) PSH: Past Surgical History: Procedure Laterality Date BARIATRIC SURGERY CARDIAC CATHETERIZATION HERNIA MESH REMOVAL SH: Social Determinants of Health Tobacco Use: Medium Risk (11/30/2023) Patient History Smoking Tobacco Use: Former Smokeless Tobacco Use: Never Passive Exposure: Not on file Alcohol Use: Not on file Financial Resource Strain: Not on file Food Insecurity: Not on file Transportation Needs: Not on file Physical Activity: Not on file Stress: Not on file Social Connections: Not on file Intimate Partner Violence: Unknown (08/26/2023) [place] Safety [employer] [place] Fear of Current or Ex-Partner: Not on file Emotionally Abused: Not on file Physically Abused: Not on file Sexually Abused: Not on file Physically or Sexually Abused: Not on file Depression: Not on file Housing Stability: Not on file Utilities: Not on file Allergies: Allergies Allergen Reactions Codeine Anaphylaxis Tolerated hydromorphone 03/2022 Cephalexin Hives and Other Other reaction(s): Other: See Comments Peeling of skin Peeling of skin. Has received multiple courses of piperacillin/tazobactam without noted reaction inpatient. Tramadol Other Weight: 61.2kg Visit Vitals BP 136/83 Pulse 52 Resp 14 Wt 61.2 kg (134 lb 14.7 oz) SpO2 99% BMI 23.90 kg/m??? OB Status Hysterectomy Smoking Status Former BSA 1.65 m??? Meds: No current facility-administered medications on file prior to encounter. Current Outpatient Medications on File Prior to Encounter Medication Sig Dispense Refill aspirin 81 mg chewable tablet chew and swallow 1 tablet by mouth once daily famotidine (Pepcid) 20 mg tablet Take 20 mg by mouth in the morning. levothyroxine (Synthroid, Levoxyl) 100 mcg tablet Take 112 mcg by mouth in the morning. pravastatin (Pravachol) 20 mg tablet Take 1 tablet (20 mg) by mouth at bedtime. 90 tablet 3 flecainide (Tambocor) 100 mg tablet Take 1 tablet (100 mg) by mouth in the morning and at bedtime. (Patient not (more content not included)... [facility] NURSNOTEon 12-08-2023 NURSNOTE RN educated pt on d/ c instructions. RN encouraged pt to voice any questions or concerns. Pt verbalizes no questions or concerns at this time. Pt was wheeled off of unit with all of belongings. [facility] NURSNOTJamil RN notified Dr. Shahriar cunha of EKG and pt right femoral site. He is okay with patient being discharged at 1700. [facility] Orders Onlyon 11-30-2023 Orders Only [id number] Campos Daily 1965 F Date Provider Department Center 11/30/2023 FILIPE CHAU [facility] Family History Problem Relation Age of Onset Heart failure Mother Hyperlipidemia Mother Other Father Family Status - Relation Status Age at Mother Father [facility] Office Visiton 10-12-2023 Follow-up visit [id number] Campos Daily 1965 F Date Provider Department Center 10/12/2023 166-RANJITH BALES [facility]SI[facility] Family History Problem Relation Age of Onset Heart failure Mother Hyperlipidemia Mother Other Father Family Status - Relation Status Age at Mother Father Level of Service:71366 [place] OFFICE/OUTPATIENT ESTABLISHED MOD MDM 30 MIN [facility] DXA Skeletal system Views fo r bone densityOrdered By: Doreen Vera [facility]23 [facility] Office Visiton 09-28-2023 Follow-up visit [id number] Campos Daily 1965 F Date Provider Department Center 09/28/2023 MarkieVALSOLOMON LOMBARDI CASSIUS Love [facility] Family History Problem Relation Age of Onset Heart failure Mother Hyperlipidemia Mother Other Father Family Status - Relation Status Age at Mother Father Level of Service:16761 [place] OFFICE/OUTPATIENT ESTABLISHED MOD MDM 30 MIN Normal [facility] CNOVon 09-23-2023 CNOV Normal [facility] MR ANKLE RIGHT WO IV CONTRAS Ton 09-08-2023 MR ANKLE RIGHT WO IV CONTRAST HISTORY: Injury with right ankle pain. Bruising to the metatarsal region. Difficulty weightbearing. Concern for occult fracture. TECHNIQUE: Routine MRI of the right ankle/hindfoot COMPARISON: Radiographs 09/03/2023. RESULT: Cartilage: Tibiotalar joint cartilage grossly preserved. Mild degenerative changes subtalar joint. Mild degenerative changes in the midfoot. Ligaments: Talofibular ligaments, tibiofibular ligaments, calcaneofibular ligament and deltoid ligament all appear to be intact. Tendons: Mild distal Achilles tendinosis, without tear. Extensor tendons appear intact. Medial flexor tendons appear intact. Peroneal tendons appear grossly intact. Joint Fluid: Physiologic quantity of joint fluid. Bone Marrow: Fairly diffuse bone marrow edema throughout the calcaneus, with possible small subchondral fracture line anteriorly. Small amount of subchondral edema elsewhere in the midfoot, especially involving the navicular, probably degenerative or reactive in etiology. Plantar Aponeurosis: Mild thickening of the central band at origin, without tear, with associated enthesophyte. Sinus Tarsi: Sinus tarsi is within normal limits. Muscle: Muscle bulk and signal intensity is within normal limits. Tarsal Tunnel: Tarsal tunnel is within normal limits. Other: Mild subcutaneous edema laterally. IMPRESSION: Possible nondisplaced fracture of the calcaneus versus reactive/degenerative edema. Degenerative changes as discussed. ELECTRONICALLY SIGNED BY: Thierry Chavez MD Normal Not Available MR SHOULDER LEFT WO IV CONTR Yonny 09-08-2023 MR SHOULDER LEFT WO IV CONTRAST EXAMINATION: MR SHOULDER LEFT WO IV CONTRAST HISTORY: INTERNAL DERANGEMENT shoulder pain for a few months. No recent injury. Denies prior left shoulder surgery. TECHNIQUE: Routine non-contrast MRI of the shoulder, left side COMPARISON: Radiographs 08/06/2023. RESULT: Rotator Cuff Tendons: Globular area of decreased signal involving more posterior fibers of infraspinatus near the footplate measuring around 1.3 cm, consistent with calcific tendinosis. Mild tendinosis involving supraspinatus, infraspinatus, and subscapularis, without tear. Teres minor appears intact. Long Head Biceps Tendon: Appears intact with appropriate location. Muscle: Muscle bulk and signal intensity are within normal limits. Labrum: Appears intact. Bones and Marrow: No evidence of fracture or bone marrow replacing process. Glenohumeral Joint: Cartilage appears preserved. No joint effusion. Acromioclavicular Joint: Mild to moderate degenerative changes. Other: No other significant abnormality. IMPRESSION: Rotator cuff tendinosis, with calcific tendinosis involving infraspinatus, without tear. ELECTRONICALLY SIGNED BY: Thierry Chavez MD Normal Not Available CNOVon 08-26-2023 CNOV Normal [facility] Office Visiton 08-25-2023 Follow-up visit [id number] Campos Daily 1965 F Date Provider Department Center 08/25/2023 LINDA UMANA CASSIUS [facility] Family History Problem Relation Age of Onset Heart failure Mother Hyperlipidemia Mother Other Father Family Status - Relation Status Age at Mother Father Level of Service:20030 [place] OFFICE/OUTPATIENT ESTABLISHED LOW MDM 20 MIN Normal [facility] CNOVon 08-05-2023 CNOV Normal [facility] CNOVon 07-22-2023 CNOV Normal [facility] Office Visiton 07-06-2023 Follow-up visit [id number] Campos Daily 1965 F Date Provider Department Center 07/06/2023 LINDA UMANA Family History Problem Relation Age of Onset Heart failure Mother Hyperlipidemia Mother Other Father Family Status - Relation Status Age at Mother Father Level of Service:72300 [place] OFFICE/OUTPATIENT ESTABLISHED MOD MDM 30 MIN Normal [facility] Basic metabolic 2000 panelon 07-01-2023 Anion gap [Moles/Vol] 8 mmol/L Low 9-18 [facility] Comment on above: Order Comment: Speci men Type: BLOOD SPECIMENOrdering Facility: [facility] Address: [address] [place] [address] Performed By: #### 2 4321-2, , 2776-07 ####[facility] [id number] [place] [id number] [place] Calcium [Mass/Vol] 8.6 mg/dL Normal 8.5-10.2 [facility] Comment on above: Order Comment: Speci men Type: BLOOD SPECIMENOrdering Facility: [facility] Address: [address] [place] [address] Performed By: #### 2 4321-2, , 2776-07 ####[facility] [id number] [place] [address] [place] Chloride [Moles/Vol] 106 mmol/L High 97-[address] [facility] Comment on above: Order Comment: Speci men Type: BLOOD SPECIMENOrdering Facility: [facility] Address: [address] [place] [address] Performed By: #### 2 4321-2, , 2776-07 ####[facility] [id number] [place] [address] [place] CO2 [Moles/Vol] 29 mmol/L Normal 22-30 [facility] Comment on above: Order Comment: Speci men Type: BLOOD SPECIMENOrdering Facility: [facility] Address: [address] [place] [address] Performed By: #### 2 4321-2, , 2776-07 ####[facility] [id number] [place] [id number] [place] Creatinine [Mass/Vol] 0.70 mg/dL Normal 0.58-0.96 [facility] Comment on above: Order Comment: Speci men Type: BLOOD SPECIMENOrdering Facility: [facility] Address: [address] [place] [address] Performed By: #### 2 4321-2, , 2776-07 ####[facility] [id number] [place] [address] [place] Creatinine and Glomerular filtration rate.predicted panel (S/P/Bld) 102 mL/min/1.73m??? Normal >=60 [facility] Comment on above: Order Comment: Chantale cody Type: BLOOD SPECIMENOrdering Facility: [facility] Address: [address] [place] [address] Result Comment: Terra mated Glomerular Filtration Rate (eGFR) is calculated using the 2020 CKD-EPI creatinine equation. This equation utilizes serum creatinine, sex, and age as parameters. The creatinine assay has traceable calibration to isotope dilution-mass spectrometry. Refer to KDIGO guidelines for clinical interpretation. In patients with unstable renal function, e.g. those with acute kidney injury, the eGFR may not accurately reflect actual GFR. Performed By: #### 2 4321-2, , 2776-07 ####[facility] [id number] [place] [address] [place] Glucose [Mass/Vol] 91 mg/dL Normal 74-99 [facility] Comment on above: Order Comment: Chantale cody Type: BLOOD SPECIMENOrdering Facility: [facility] Address: [address] [place] [address] Result Comment: The [place] Diabetes Association (ADA) provides guidance for cutoff values for fasting glucose and random glucose. The ADA defines fasting as no caloric intake for at least 8 hours. Fasting plasma glucose results between 100 to 125 mg/dL indicate increased risk for diabetes (prediabetes).Fasting plasma glucose results greater than or equal to 126 mg/dL meet the criteria for diagnosis of diabetes. In the absence of unequivocal hyperglycemia, results should be confirmed by repeat testing. In a patient with classic symptoms of hyperglycemia or hyperglycemic crisis, random plasma glucose results greater than or equal to 200 mg/dL meet the criteria for diagnosis of diabetes.Reference: Standards of Medical Care in Diabetes 2016, [place] [employer]. Diabetes Care. 2016.39(Suppl 1). Performed By: #### 2 4321-2, , 2776-07 ####[facility]IA [id number] [address] [address] [place] Potassium [Moles/Vol] 4.3 mmol/L Normal 3.7-5.1 [facility] Comment on above: Order Comment: Speci men Type: BLOOD SPECIMENOrdering Facility: [facility] Address: [address] [place] [address] Performed By: #### 2 4321-2, , 2776-07 ####[facility]IA [id number] [place] [id number] [place] Sodium [Moles/Vol] 143 mmol/L Normal 136-144 [facility] Comment on above: Order Comment: Speci men Type: BLOOD SPECIMENOrdering Facility: [facility] Address: [address] [place] [address] Performed By: #### 2 432-2, , 2776-07 ####[facility]IA [id number] [place] [id number] [place] Urea nitrogen [Mass/Vol] 16 mg/dL Normal 7-21 [facility] Comment on above: Order Comment: Speci men Type: BLOOD SPECIMENOrdering Facility: [facility] Address: [address] [place] [address] Performed By: #### 2 432-2, , 2776-07 ####[facility] LABIA [id number] [place] [id number] [place] CASE MANAGEMon 07-01-2023 CASE MANAGEM Normal [facility] CBC W Auto Differential pane l (Bld)on 07-01-2023 Basophils (Bld) [#/Vol] 10*3/uL Normal <0.11 [facility] Comment on above: Order Comment: Speci men Type: BLOOD SPECIMENOrdering Facility: [facility] Address: [address] [place] [address] Performed By: #### 5 7021-8 ####[facility]CL[facility] [id number] [place] [address] [place] Basophils/100 WBC (Bld) 0.5 % Normal [facility] Comment on above: Order Comment: Speci men Type: BLOOD SPECIMENOrdering Facility: [facility] Address: [address] [place] [address] Performed By: #### 5 7021-8 ####[facility] [id number] [place] [address] [place] Differential cell count method Nom (Bld) Auto Normal [facility] Comment on above: Order Comment: Speci men Type: BLOOD SPECIMENOrdering Facility: [facility] Address: [address] [place] [address] Performed By: #### 5 7021-8 ####[facility] [id number] [place] [address] [place] Eosinophils (Bld) [#/Vol] 0.06 10*3/uL Normal <0.46 [facility] Comment on above: Order Comment: Speci men Type: BLOOD SPECIMENOrdering Facility: [facility] Address: [address] [place] [address] Performed By: #### 5 7021-8 ####[facility] [id number] [place] [address] [place] Eosinophils/100 WBC (Bld) 1.4 % Normal [facility] Comment on above: Order Comment: Speci men Type: BLOOD SPECIMENOrdering Facility: [facility] Address: [address] [place] [address] Performed By: #### 5 7021-8 ####[facility] LABCLIA [id number] [place] [address] [place] Erythrocyte distribution width (RBC) [Ratio] 15.6 % High 11.5-15.0 [facility] Comment on above: Order Comment: Speci men Type: BLOOD SPECIMENOrdering Facility: [facility] Address: [address] [place] [address] Performed By: #### 5 7021-8 ####[facility] LABCLIA [id number] [place] [address] [place] Hematocrit (Bld) [Volume fraction] 31.1 % Low 36.0-46.0 [facility] Comment on above: Order Comment: Speci men Type: BLOOD SPECIMENOrdering Facility: [facility] Address: [address] [place] [address] Performed By: #### 5 7021-8 ####[facility] LABIA [id number] [place] [address] [place] Hemoglobin (Bld) [Mass/Vol] 9.9 g/dL Low 11.5-15.5 [facility] Comment on above: Order Comment: Speci men Type: BLOOD SPECIMENOrdering Facility: [facility] Address: [address] [place] [address] Performed By: #### 5 7021-8 ####[facility] LABIA [id number] [place] [address] [place] Immature granulocytes (Bld) [#/Vol] 10*3/uL Normal <0.10 [facility] Comment on above: Order Comment: Speci men Type: BLOOD SPECIMENOrdering Facility: [facility] Address: [address] [place] [address] Performed By: #### 5 7021-8 ####[facility] LABCLIA [id number] [place] [address] [place] Immature granulocytes/100 WBC (Bld) 0.2 % Normal [facility] Comment on above: Order Comment: Speci men Type: BLOOD SPECIMENOrdering Facility: [facility] Address: [address] [place] [address] Performed By: #### 5 7021-8 ####[facility] LABCLIA [id number] [place] [address] [place] Lymphocytes (Bld) [#/Vol] 1.79 10*3/uL Normal 1.00-4.00 [facility] Comment on above: Order Comment: Speci men Type: BLOOD SPECIMENOrdering Facility: [facility] Address: [address] [place] [address] Performed By: #### 5 7021-8 ####[facility] LABCLIA [id number] [place] [address] [place] Lymphocytes/100 WBC (Bld) 40.8 % Normal [facility] Comment on above: Order Comment: Speci men Type: BLOOD SPECIMENOrdering Facility: [facility] Address: [address] [place] [address] Performed By: #### 5 7021-8 ####[facility] LABCLIA [id number] [place] [address] [place] MCH (RBC) [Entitic mass] 26.3 pg Normal 26.0-34.0 [facility] Comment on above: Order Comment: Speci men Type: BLOOD SPECIMENOrdering Facility: [facility] Address: [address] [place] [address] Performed By: #### 5 7021-8 ####[facility] LABCLIA [id number] [place] [address] [place] MCHC (RBC) [Mass/Vol] 31.8 g/dL Normal 30.5-36.0 [facility] Comment on above: Order Comment: Speci men Type: BLOOD SPECIMENOrdering Facility: [facility] Address: [address] [place] [address] Performed By: #### 5 7021-8 ####[facility] LABCLIA [id number] [place] [address] [place] MCV (RBC) [Entitic vol] 82.7 fL Normal 80.0-100.0 [facility] Comment on above: Order Comment: Speci men Type: BLOOD SPECIMENOrdering Facility: [facility] Address: [address] [place] [address] Performed By: #### 5 7021-8 ####[facility] LABCLIA [id number] [place] [address] [place] Monocytes (Bld) [#/Vol] 0.36 10*3/uL Normal <0.87 [facility] Comment on above: Order Comment: Speci men Type: BLOOD SPECIMENOrdering Facility: [facility] Address: [address] [place] [address] Performed By: #### 5 7021-8 ####[facility] LABCLIA [id number] [place] [address] [place] Monocytes/100 WBC (Bld) 8.2 % Normal [facility] Comment on above: Order Comment: Speci men Type: BLOOD SPECIMENOrdering Facility: [facility] Address: [address] [place] [address] Performed By: #### 5 7021-8 ####[facility] LABCLIA [id number] [place] [address] [place] Neutrophils (Bld) [#/Vol] 2.15 10*3/uL Normal 1.45-7.50 [facility] Comment on above: Order Comment: Speci men Type: BLOOD SPECIMENOrdering Facility: [facility] Address: [address] [place] [address] Performed By: #### 5 7021-8 ####[facility] LABCLIA [id number] [place] [address] [place] Neutrophils/100 WBC (Bld) 48.9 % Normal [facility] Comment on above: Order Comment: Speci men Type: BLOOD SPECIMENOrdering Facility: [facility] Address: [address] [place] [address] Performed By: #### 5 7021-8 ####[facility] LABCLIA [id number] [place] [address] [place] Nucleated RBC (Bld) [#/Vol] 10*3/uL Normal <0.01 [facility] Comment on above: Order Comment: Speci men Type: BLOOD SPECIMENOrdering Facility: [facility] Address: [address] [place] [address] Performed By: #### 5 7021-8 ####[facility] LABIA [id number] [place] [address] [place] Nucleated RBC/100 WBC (Bld) [Ratio] 0.0 /100 WBC Normal [facility] Comment on above: Order Comment: Speci men Type: BLOOD SPECIMENOrdering Facility: [facility] Address: [address] [place] [address] Performed By: #### 5 7021-8 ####[facility] LABIA [id number] [place] [address] [place] Platelet mean volume (Bld) [Entitic vol] 10.2 fL Normal 9.0-12.7 [facility] Comment on above: Order Comment: Speci men Type: BLOOD SPECIMENOrdering Facility: [facility] Address: [address] [place] [address] Performed By: #### 5 7021-8 ####[facility] LABIA [id number] [place] [address] [place] Platelets (Bld) [#/Vol] 172 10*3/uL Normal 150-400 [facility] Comment on above: Order Comment: Speci men Type: BLOOD SPECIMENOrdering Facility: [facility] Address: [address] [place] [address] Performed By: #### 5 7021-8 ####[facility] LABCLIA [id number] [place] [address] [place] RBC (Bld) [#/Vol] 3.76 10*6/uL Low 3.90-5.20 [facility] Comment on above: Order Comment: Speci men Type: BLOOD SPECIMENOrdering Facility: [facility] Address: [address] [place] [address] Performed By: #### 5 7021-8 ####[facility] LABCLIA [id number] [place] [address] [place] WBC (Bld) [#/Vol] 4.39 10*3/uL Normal 3.70-11.00 [facility] Comment on above: Order Comment: Speci men Type: BLOOD SPECIMENOrdering Facility: [facility] Address: [address] [place] [address] Performed By: #### 5 7021-8 ####[facility] LABCLIA [id number] [place] [address] [place] CNCOon 07-01-2023 CNCO Letter Text Normal [facility] CNDSon 07-01-2023 CNDS Normal [facility] Magnesium SerPl-mCncon 07-01 Magnesium [Mass/Vol] 2.1 mg/dL Normal 1.7-2.[address] [facility] Comment on above: Order Comment: Speci men Type: BLOOD SPECIMENOrdering Facility: [facility] Address: [address] [place] [address] Performed By: #### 2 4321-2, 80646-6, 277-1 ####[facility] LABCLIA [id number] [place] [address] [place] Phosphate SerPl-mCncon 07-01 Phosphate [Mass/Vol] 4.5 mg/dL Normal 2.7-4.[address] [facility] Comment on above: Order Comment: Speci men Type: BLOOD SPECIMENOrdering Facility: [facility] Address: [address] [place] [address] Performed By: #### 2 4321-2, 58326-3, 2777-1 ####[facility] LABCLIA [id number] [address] [address] [place] XR ABDOMEN 1V SUPINEon 07-01 XR ABDOMEN 1V SUPINE Normal [facility] ALLIED HEALTHon 06-30-2023 ALLIED HEALTH Normal [facility] ALLIED HEALTH Normal [facility] Basic metabolic 2000 panelon 06-30-2023 Anion gap [Moles/Vol] 7 mmol/L Low 9-18 [facility] Comment on above: Order Comment: Speci men Type: BLOOD SPECIMENOrdering Facility: [facility] Address: [address] [place] [address] Performed By: #### 2 4321-2, , 2776-07 ####[facility] LABCLIA [id number] [place] [address] [place] Calcium [Mass/Vol] 9.1 mg/dL Normal 8.5-10.2 [facility] Comment on above: Order Comment: Speci men Type: BLOOD SPECIMENOrdering Facility: [facility] Address: [address] [place] [address] Performed By: #### 2 4321-2, , 2776-07 ####[facility] LABCLIA [id number] [place] [address] [place] Chloride [Moles/Vol] 107 mmol/L High 97-[address] [facility] Comment on above: Order Comment: Speci men Type: BLOOD SPECIMENOrdering Facility: [facility] Address: [address] [place] [address] Performed By: #### 2 4321-2, , 2776-07 ####[facility] LABCLIA [id number] [place] [id number] [place] CO2 [Moles/Vol] 26 mmol/L Normal 22-30 [facility] Comment on above: Order Comment: Speci men Type: BLOOD SPECIMENOrdering Facility: [facility] Address: [address] [place] [address] Performed By: #### 2 4321-2, , 2776-07 ####[facility] LABCLIA [id number] [place] [address] [place] Creatinine [Mass/Vol] 0.66 mg/dL Normal 0.58-0.96 [facility] Comment on above: Order Comment: Speci men Type: BLOOD SPECIMENOrdering Facility: [facility] Address: [address] [place] [address] Performed By: #### 2 4321-2, , 2776-07 ####[facility] LABIA [id number] [place] [address] [place] Creatinine and Glomerular filtration rate.predicted panel (S/P/Bld) 103 mL/min/1.73m??? Normal >=60 [facility] Comment on above: Order Comment: Chantale men Type: BLOOD SPECIMENOrdering Facility: [facility] Address: [address] [place] [address] Result Comment: Terra mated Glomerular Filtration Rate (eGFR) is calculated using the 2020 CKD-EPI creatinine equation. This equation utilizes serum creatinine, sex, and age as parameters. The creatinine assay has traceable calibration to isotope dilution-mass spectrometry. Refer to KDIGO guidelines for clinical interpretation. In patients with unstable renal function, e.g. those with acute kidney injury, the eGFR may not accurately reflect actual GFR. Performed By: #### 2 4321-2, , 2776-07 ####[facility] LABIA [id number] [place] [id number] [place] Glucose [Mass/Vol] 105 mg/dL High 74-99 [facility] Comment on above: Order Comment: Speci men Type: BLOOD SPECIMENOrdering Facility: [facility] Address: [address] [place] [address] Result Comment: The [place] [employer] (ADA) provides guidance for cutoff values for fasting glucose and random glucose. The ADA defines fasting as no caloric intake for at least 8 hours. Fasting plasma glucose results between 100 to 125 mg/dL indicate increased risk for diabetes (prediabetes).Fasting plasma glucose results greater than or equal to 126 mg/dL meet the criteria for diagnosis of diabetes. In the absence of unequivocal hyperglycemia, results should be confirmed by repeat testing. In a patient with classic symptoms of hyperglycemia or hyperglycemic crisis, random plasma glucose results greater than or equal to 200 mg/dL meet the criteria for diagnosis of diabetes.Reference: Standards of Medical Care in Diabetes 2016, [place] [employer]. Diabetes Care. 2016.39(Suppl 1). Performed By: #### 2 4321-2, , 2776-07 ####[facility] LABCLIA [id number] [place] [address] [place] Potassium [Moles/Vol] 4.3 mmol/L Normal 3.7-5.1 [facility] Comment on above: Order Comment: Speci men Type: BLOOD SPECIMENOrdering Facility: [facility] Address: [address] [place] [address] Performed By: #### 2 2, , 2776-07 ####[facility] LABCLIA [id number] [place] [address] [place] Sodium [Moles/Vol] 140 mmol/L Normal 136-144 [facility] Comment on above: Order Comment: Josei glo Type: BLOOD SPECIMENOrdering Facility: [facility] Address: [address] [place] [address] Performed By: #### 2 2, , 2776-07 ####[facility] LABCLIA [id number] [address] [address] [place] Urea nitrogen [Mass/Vol] 12 mg/dL Normal 7-21 [facility] Comment on above: Order Comment: Josei men Type: BLOOD SPECIMENOrdering Facility: [facility] Address: [address] [place] [address] Performed By: #### 2 432-2, , 2776-07 ####[facility] LABCLIA [id number] [place] [address] [place] CASE MGT INIT ASSESon 2022 CASE MGT INIT ASSES Normal [facility] CBC W Auto Differential pane l (Bld)on 06-30-2023 Basophils (Bld) [#/Vol] 0.03 10*3/uL Normal <0.11 [facility] Comment on above: Order Comment: Speci men Type: BLOOD SPECIMENOrdering Facility: [facility] Address: [address] [place] [address] Performed By: #### 5 7021-8 ####[facility] LABCLIA [id number] [place] [address] [place] Basophils/100 WBC (Bld) 0.4 % Normal [facility] Comment on above: Order Comment: Speci men Type: BLOOD SPECIMENOrdering Facility: [facility] Address: [address] [place] [address] Performed By: #### 5 7021-8 ####[facility] LABCLIA [id number] [place] [address] [place] Differential cell count method Nom (Bld) Auto Normal [facility] Comment on above: Order Comment: Speci men Type: BLOOD SPECIMENOrdering Facility: [facility] Address: [address] [place] [address] Performed By: #### 5 7021-8 ####[facility] LABCLIA [id number] [place] [address] [place] Eosinophils (Bld) [#/Vol] 10*3/uL Normal <0.46 [facility] Comment on above: Order Comment: Speci men Type: BLOOD SPECIMENOrdering Facility: [facility] Address: [address] [place] [address] Performed By: #### 5 7021-8 ####[facility] LABCLIA [id number] [place] [address] [place] Eosinophils/100 WBC (Bld) 0.1 % Normal [facility] Comment on above: Order Comment: Speci men Type: BLOOD SPECIMENOrdering Facility: [facility] Address: [address] [place] [address] Performed By: #### 5 7021-8 ####[facility] LABCLIA [id number] [place] [address] [place] Erythrocyte distribution width (RBC) [Ratio] 15.7 % High 11.5-15.0 [facility] Comment on above: Order Comment: Speci men Type: BLOOD SPECIMENOrdering Facility: [facility] Address: [address] [place] [address] Performed By: #### 5 7021-8 ####[facility] LABIA [id number] [place] [address] [place] Hematocrit (Bld) [Volume fraction] 31.0 % Low 36.0-46.0 [facility] Comment on above: Order Comment: Speci men Type: BLOOD SPECIMENOrdering Facility: [facility] Address: [address] [place] [address] Performed By: #### 5 7021-8 ####[facility] LABIA [id number] [place] [address] [place] Hemoglobin (Bld) [Mass/Vol] 9.9 g/dL Low 11.5-15.5 [facility] Comment on above: Order Comment: Speci men Type: BLOOD SPECIMENOrdering Facility: [facility] Address: [address] [place] [address] Performed By: #### 5 7021-8 ####[facility] LABIA [id number] [place] [address] [place] Immature granulocytes (Bld) [#/Vol] 10*3/uL Normal <0.10 [facility] Comment on above: Order Comment: Speci men Type: BLOOD SPECIMENOrdering Facility: [facility] Address: [address] [place] [address] Performed By: #### 5 7021-8 ####[facility] LABCLIA [id number] [address] [place] Immature granulocytes/100 WBC (Bld) 0.1 % Normal [facility] Comment on above: Order Comment: Speci men Type: BLOOD SPECIMENOrdering Facility: [facility] Address: [address] [place] [address] Performed By: #### 5 7021-8 ####[facility] LABIA [id number] [place] [address] [place] Lymphocytes (Bld) [#/Vol] 1.57 10*3/uL Normal 1.00-4.00 [facility] Comment on above: Order Comment: Speci men Type: BLOOD SPECIMENOrdering Facility: [facility] Address: [address] [place] [address] Performed By: #### 5 7021-8 ####[facility] LABIA [id number] [place] [address] [place] Lymphocytes/100 WBC (Bld) 23.3 % Normal [facility] Comment on above: Order Comment: Speci men Type: BLOOD SPECIMENOrdering Facility: [facility] Address: [address] [place] [address] Performed By: #### 5 7021-8 ####[facility] LABIA [id number] [place] [address] [place] MCH (RBC) [Entitic mass] 26.2 pg Normal 26.0-34.0 [facility] Comment on above: Order Comment: Speci men Type: BLOOD SPECIMENOrdering Facility: [facility] Address: [address] [place] [address] Performed By: #### 5 7021-8 ####[facility] LABIA [id number] [place] [address] [place] MCHC (RBC) [Mass/Vol] 31.9 g/dL Normal 30.5-36.0 [facility] Comment on above: Order Comment: Speci men Type: BLOOD SPECIMENOrdering Facility: [facility] Address: [address] [place] [address] Performed By: #### 5 7021-8 ####[facility] LABCLIA [id number] [place] [address] [place] MCV (RBC) [Entitic vol] 82.0 fL Normal 80.0-100.0 [facility] Comment on above: Order Comment: Speci men Type: BLOOD SPECIMENOrdering Facility: [facility] Address: [address] [place] [address] Performed By: #### 5 7021-8 ####[facility] LABIA [id number] [place] [address] [place] Monocytes (Bld) [#/Vol] 0.36 10*3/uL Normal <0.87 [facility] Comment on above: Order Comment: Speci men Type: BLOOD SPECIMENOrdering Facility: [facility] Address: [address] [place] [address] Performed By: #### 5 7021-8 ####[facility] LABCLIA [id number] [place] [address] [place] Monocytes/100 WBC (Bld) 5.3 % Normal [facility] Comment on above: Order Comment: Speci men Type: BLOOD SPECIMENOrdering Facility: [facility] Address: [address] [place] [address] Performed By: #### 5 7021-8 ####[facility] LABCLIA [id number] [place] [address] [place] Neutrophils (Bld) [#/Vol] 4.76 10*3/uL Normal 1.45-7.50 [facility] Comment on above: Order Comment: Speci men Type: BLOOD SPECIMENOrdering Facility: [facility] Address: [address] [place] [address] Performed By: #### 5 7021-8 ####[facility] LABCLIA [id number] [place] [address] [place] Neutrophils/100 WBC (Bld) 70.8 % Normal [facility] Comment on above: Order Comment: Speci men Type: BLOOD SPECIMENOrdering Facility: [facility] Address: [address] [place] [address] Performed By: #### 5 7021-8 ####[facility] LABCL[facility] [id number] [place] [address] [place] Nucleated RBC (Bld) [#/Vol] 10*3/uL Normal <0.01 [facility] Comment on above: Order Comment: Speci men Type: BLOOD SPECIMENOrdering Facility: [facility] Address: [address] [place] [address] Performed By: #### 5 7021-8 ####[facility] LABIA [id number] [place] [address] [place] Nucleated RBC/100 WBC (Bld) [Ratio] 0.0 /100 WBC Normal [facility] Comment on above: Order Comment: Speci men Type: BLOOD SPECIMENOrdering Facility: [facility] Address: [address] [place] [address] Performed By: #### 5 7021-8 ####[facility] LABIA [id number] [place] [address] [place] Platelet mean volume (Bld) [Entitic vol] 10.0 fL Normal 9.0-12.7 [facility] Comment on above: Order Comment: Speci men Type: BLOOD SPECIMENOrdering Facility: [facility] Address: [address] [place] [address] Performed By: #### 5 7021-8 ####[facility] LABIA [id number] [place] [address] [place] Platelets (Bld) [#/Vol] 208 10*3/uL Normal 150-400 [facility] Comment on above: Order Comment: Speci men Type: BLOOD SPECIMENOrdering Facility: [facility] Address: [place] [address] Performed By: #### 5 7021-8 ####[facility] LABCL[facility] [id number] [place] [address] [place] RBC (Bld) [#/Vol] 3.78 10*6/uL Low 3.90-5.20 [facility] Comment on above: Order Comment: Speci men Type: BLOOD SPECIMENOrdering Facility: [facility] Address: [address] [place] [address] Performed By: #### 5 7021-8 ####[facility] LABIA [id number] [place] [address] [place] WBC (Bld) [#/Vol] 6.74 10*3/uL Normal 3.70-11.00 [facility] Comment on above: Order Comment: Speci men Type: BLOOD SPECIMENOrdering Facility: [facility] Address: [address] [place] [address] Performed By: #### 5 7021-8 ####[facility] LABCL[facility] [id number] [place] [id number] [place] CONSULTon 06-30-2023 CONSULT Normal [facility] Magnesium SerPl-mCncon 06-30 Magnesium [Mass/Vol] 1.7 mg/dL Normal 1.7-2.[address] [facility] Comment on above: Order Comment: Speci men Type: BLOOD SPECIMENOrdering Facility: [facility] Address: [address] [place] [address] Performed By: #### 2 4321-2, 53286-1, 2777-1 ####[facility] LABCLIA [id number] [place] [address] [place] Phosphate SerPl-mCncon 06-30 Phosphate [Mass/Vol] 4.5 mg/dL Normal 2.7-4.8 [facility] Comment on above: Order Comment: Speci men Type: BLOOD SPECIMENOrdering Facility: [facility] [facility] Address: [place] [address] Performed By: #### 2 4321-2, 33046-8, 2777-1 ####[facility] LABCL[facility] [id number] [facility] [place] [address] [place] ANES POSTPROC EVALon 023 ANES POSTPROC EVAL Normal [facility] ANES PRE-OPon 06-29-2023 ANES PRE-OP Normal [facility] NURSING PROGon 06-29-2023 NURSING PROG Normal [facility] OPERATIVE NOon 06-29-2023 OPERATIVE NO Normal [facility] CNCOon 06-15-2023 CNCO Letter Text Normal [facility] CNPNon 06-15-2023 CNPN Normal [facility] HISTORY PHYSICALon 3 HISTORY PHYSICAL Normal [facility] CNOVon 05-31-2023 CNOV Normal [facility] HISTORY PHYSICALon 3 HISTORY PHYSICAL Normal [facility] Office Visiton 05-31-2023 Follow-up visit [id number] Campos Daily 1965 F Date Provider Department Center 05/31/2023 Naila-LINDA DONALDSON [facility] Family History Problem Relation Age of Onset Heart failure Mother Hyperlipidemia Mother Other Father Family Status - Relation Status Age at Mother Father Level of Service:78119 [place] OFFICE/OUTPATIENT ESTABLISHED MOD MDM 30-39 MIN Normal [facility] ALLIED HEALTHon 05-20-2023 ALLIED HEALTH HNO ID: [id number] Author: Maryjane Taylor CT Service: Radiology Author Type: Echo Technologist Type: Allied Health Filed: 05/20/2023 9:38 AM Note Text: Radiology Service Progress Note PATIENT NAME: Yari Daily DATE OF SERVICE: May 20, 2023 TIME: 9:37 AM PATIENT IDENTITY VERIFICATION COMPLETED USING TWO (2) IDENTIFIERS: Name and Date of confirmed by patient verbally and Name and Date of confirmed by identification band. FALL SCREENING: Has the patient had 2 falls in the last year or 1 fall with injury or currently using an Ambulatory Assistive Device (Walker, Cane, Wheelchair, Crutches, etc.)? No PATIENT GENDER DATA: Female. status: : No status: NO. PATIENT RELEVANT IMPLANT DATA REVIEWED: Not Applicable RADIOLOGY DEPARTMENT: CT; Exam(s) Completed: Abdomen/Pelvis PERIPHERAL IV DATA: Not applicable SIGNED BY: PAZ Cross May 20, 2023 9:37 AM [facility] CT ABD/PEL WO IVCONon 2022 CT ABD/PEL WO IVCON * * *Final Report* * * DATE OF EXAM: May 20 2023 9:36AM KATLYN 0531 - CT ABD/PEL WO IVCON / PROCEDURE REASON: Acute postoperative pain * * * * Physician Interpretation * * * * EXAMINATION: CT ABDOMEN AND PELVIS WITHOUT IV CONTRAST CLINICAL HISTORY: Postoperative infection, status post ventral hernia repair TECHNIQUE: Non-IV contrast imaging of the abdomen and pelvis was performed using standard technique, scanning from just above the dome of the diaphragm to the symphysis pubis. Unenhanced imaging is limited for the evaluation of some intra-abdominal and pelvic pathology. MQ: CTAPWO_3 Contrast: IV: None : ml of CT Radiation dose: Integrated Dose-length product (DLP) for this visit = 389 mGy*cm. CT Dose Reduction Employed: Automated exposure control(AEC) and iterative recon COMPARISON: 05/05/2023, 05/04/2023. RESULT: Abdomen / Pelvis: Liver: No mass within limits of unenhanced imaging. Biliary: Prior cholecystectomy. Spleen: No splenomegaly. Pancreas: No mass or ductal dilatation. Adrenals: No mass. Kidneys: No hydronephrosis. Nonobstructing 4 mm calculus at right lower pole. GI Tract: Prior bariatric surgery. Hiatal hernia. Lymph Nodes: No lymphadenopathy. Mesentery/peritoneum: No ascites. Retroperitoneum: No mass. Vasculature: No abdominal aortic or iliac artery aneurysm. Pelvis: No mass or ascites. Bones/Soft Tissues: Status post ventral herniorrhaphy. Pigtail drainage catheter at ellipsoid anterior abdominal wall fluid collection with trace fluid present and small amounts of gas that are likely iatrogenic. This measures approximately 9.5 cm transverse x 1.0 cm AP diameter. Persistent soft tissue wounds with subcutaneous emphysema anteriorly at the right upper quadrant/2:36-40 and below the umbilicus/2:80-88. Anasarca. Lower thorax: Unremarkable. [facility] (topogram) images: No additional findings. IMPRESSION: Pigtail drainage catheter at ellipsoid anterior abdominal wall fluid collection with trace fluid present and small amounts of gas that are likely iatrogenic. Persistent soft tissue wounds with subcutaneous emphysema anteriorly at the right upper quadrant and below the umbilicus. Right nephrolithiasis. Informatics Developer: RISHI Transcribe Date/Time: May 20 2023 9:44A Dictated by : Arcenio HERMAN MD This examination was interpreted and the report reviewed and electronically signed by: Arcenio HERMAN MD on May 20 2023 10:08AM EST [id number] [facility] CNOVon 05-13-2023 CNOV Normal [facility] CNPNon 05-13-2023 CNPN Normal [facility] CONSULT PROGon 05-06-2023 CONSULT PROG Normal [facility] NURSING PROGon 05-06-2023 NURSING PROG Normal [facility] BRIEF OP NOTon 05-05-2023 BRIEF OP NOT Normal [facility] Bacteria Spec Anaerobe Culto n 05-05-2023 Bacteria identified Anaer cx Nom (Unsp spec) Negative Normal [facility] Comment on above: Performed By: #### 6 35-3, 6462-6, 63216-0 ####[facility] LABCLIA [id number] [place] [id number] [place] Bacteria Wnd Culton 05-05-20 23 Bacteria identified Cx Nom (Wound) CULTURE, WOUND: No growth GRAM STAIN: No organisms seen Rare Polymorphonuclear leukocytes Normal [facility] Comment on above: Performed By: #### 6 35-3, 6462-6, 36474-3 ####[facility]CL[facility] [id number] [address] [address] [place] Basic metabolic 2000 panelon 05-05-2023 Anion gap [Moles/Vol] 9 mmol/L Normal 9-18 [facility] Comment on above: Order Comment: Speci men Type: BLOOD SPECIMENOrdering Facility: [facility] Address: [address] [place] [address] Performed By: #### 2 777-1, 69821-1, ####[facility]CLIA [id number] [place] [address] [place] Calcium [Mass/Vol] 8.5 mg/dL Normal 8.5-10.2 [facility] Comment on above: Order Comment: Speci men Type: BLOOD SPECIMENOrdering Facility: [facility] Address: [address] [place] [address] Performed By: #### 2 777-1, 16496-2, ####[facility] LABCLIA [id number] [place] [address] [place] Chloride [Moles/Vol] 110 mmol/L High 97-[address] [facility] Comment on above: Order Comment: Speci men Type: BLOOD SPECIMENOrdering Facility: [facility] Address: [address] [place] [address] Performed By: #### 2 777-1, , ####[facility]CLIA [id number] [place] [id number] [place] CO2 [Moles/Vol] 22 mmol/L Normal 22-30 [facility] Comment on above: Order Comment: Speci men Type: BLOOD SPECIMENOrdering Facility: [facility] Address: [address] [place] [address] Performed By: #### 2 777-1, , ####[facility]CL[facility] [id number] [address] [address] [place] Creatinine [Mass/Vol] 0.78 mg/dL Normal 0.58-0.96 [facility] Comment on above: Order Comment: Chantale cody Type: BLOOD SPECIMENOrdering Facility: [facility] Address: [address] [place] [address] Performed By: #### 2 777-1, 93123-4, ####[facility] LABCLIA [id number] [place] [address] [place] Creatinine and Glomerular filtration rate.predicted panel (S/P/Bld) 89 mL/min/1.73m??? Normal >=60 [facility] Comment on above: Order Comment: Chantale cody Type: BLOOD SPECIMENOrdering Facility: [facility] Address: [address] [place] [address] Result Comment: Terra mated Glomerular Filtration Rate (eGFR) is calculated using the 2020 CKD-EPI creatinine equation. This equation utilizes serum creatinine, sex, and age as parameters. The creatinine assay has traceable calibration to isotope dilution-mass spectrometry. Refer to KDIGO guidelines for clinical interpretation. In patients with unstable renal function, e.g. those with acute kidney injury, the eGFR may not accurately reflect actual GFR. Performed By: #### 2 777-1, 69960-4, ####[facility] LABIA [id number] [place] [address] [place] Glucose [Mass/Vol] 172 mg/dL High 74-99 [facility] Comment on above: Order Comment: Chantale cody Type: BLOOD SPECIMENOrdering Facility: [facility] Address: [address] [place] [address] Result Comment: The [place] Diabetes [employer] (ADA) provides guidance for cutoff values for fasting glucose and random glucose. The ADA defines fasting as no caloric intake for at least 8 hours. Fasting plasma glucose results between 100 to 125 mg/dL indicate increased risk for diabetes (prediabetes).Fasting plasma glucose results greater than or equal to 126 mg/dL meet the criteria for diagnosis of diabetes. In the absence of unequivocal hyperglycemia, results should be confirmed by repeat testing. In a patient with classic symptoms of hyperglycemia or hyperglycemic crisis, random plasma glucose results greater than or equal to 200 mg/dL meet the criteria for diagnosis of diabetes.Reference: Standards of Medical Care in Diabetes 2016, [place] [employer]. Diabetes Care. 2016.39(Suppl 1). Performed By: #### 2 777-1, 88558-4, ####[facility]CL[facility] [id number] [address] [address] [place] Potassium [Moles/Vol] 4.1 mmol/L Normal 3.7-5.1 [facility] Comment on above: Order Comment: Speci men Type: BLOOD SPECIMENOrdering Facility: [facility] Address: [address] [place] [address] Performed By: #### 2 777-1, , ####[facility] LABCLIA [id number] [place] [address] [place] Sodium [Moles/Vol] 141 mmol/L Normal 136-144 [facility] Comment on above: Order Comment: Speci men Type: BLOOD SPECIMENOrdering Facility: [facility] Address: [address] [place] [address] Performed By: #### 2 777-1, , ####[facility] LABCLIA [id number] [address] [address] [place] Urea nitrogen [Mass/Vol] 12 mg/dL Normal 7-21 [facility] Comment on above: Order Comment: Speci men Type: BLOOD SPECIMENOrdering Facility: [facility] Address: [address] [place] [address] Performed By: #### 2 777-1, , ####[facility] LABCLIA [id number] [address] [address] [place] Anion gap [Moles/Vol] 8 mmol/L Low 9-18 [facility] Comment on above: Order Comment: Speci men Type: BLOOD SPECIMENOrdering Facility: [facility] Address: [address] [place] [address] Performed By: #### 2 4321-2, , 2776-07 ####[facility] LABCLIA [id number] [place] [id number] [place] Calcium [Mass/Vol] 8.6 mg/dL Normal 8.5-10.2 [facility] Comment on above: Order Comment: Speci men Type: BLOOD SPECIMENOrdering Facility: [facility] Address: [address] [place] [address] Performed By: #### 2 432-2, , 2776-07 ####[facility] LABCLIA [id number] [place] [address] [place] Chloride [Moles/Vol] 110 mmol/L High 97-[address] [facility] Comment on above: Order Comment: Speci men Type: BLOOD SPECIMENOrdering Facility: [facility] Address: [address] [place] [address] Performed By: #### 2 2, , 2776-07 ####[facility] LABIA [id number] [place] [address] [place] CO2 [Moles/Vol] 23 mmol/L Normal 22-30 [facility] Comment on above: Order Comment: Speci men Type: BLOOD SPECIMENOrdering Facility: [facility] Address: [address] [place] [address] Performed By: #### 2 4320-2, , 2776-07 ####[facility] LABIA [id number] [place] [id number] [place] Creatinine [Mass/Vol] 0.80 mg/dL Normal 0.58-0.96 [facility] Comment on above: Order Comment: Speci men Type: BLOOD SPECIMENOrdering Facility: [facility] Address: [address] [place] [address] Performed By: #### 2 4320-2, 61833-02776-07 ####[facility] LABCLIA [id number] [place] [address] [place] Creatinine and Glomerular filtration rate.predicted panel (S/P/Bld) 87 mL/min/1.73m??? Normal >=60 [facility] Comment on above: Order Comment: Chantale cody Type: BLOOD SPECIMENOrdering Facility: [facility] Address: [address] [place] [address] Result Comment: Terra mated Glomerular Filtration Rate (eGFR) is calculated using the 2020 CKD-EPI creatinine equation. This equation utilizes serum creatinine, sex, and age as parameters. The creatinine assay has traceable calibration to isotope dilution-mass spectrometry. Refer to KDIGO guidelines for clinical interpretation. In patients with unstable renal function, e.g. those with acute kidney injury, the eGFR may not accurately reflect actual GFR. Performed By: #### 2 4321-2, 37569-3, 2776-07 ####[facility] LABCLIA [id number] [place] [address] [place] Glucose [Mass/Vol] 77 mg/dL Normal 74-99 [facility] Comment on above: Order Comment: Chantale cody Type: BLOOD SPECIMENOrdering Facility: [facility] Address: [address] [place] [address] Result Comment: The [place] Diabetes Association (ADA) provides guidance for cutoff values for fasting glucose and random glucose. The ADA defines fasting as no caloric intake for at least 8 hours. Fasting plasma glucose results between 100 to 125 mg/dL indicate increased risk for diabetes (prediabetes).Fasting plasma glucose results greater than or equal to 126 mg/dL meet the criteria for diagnosis of diabetes. In the absence of unequivocal hyperglycemia, results should be confirmed by repeat testing. In a patient with classic symptoms of hyperglycemia or hyperglycemic crisis, random plasma glucose results greater than or equal to 200 mg/dL meet the criteria for diagnosis of diabetes.Reference: Standards of Medical Care in Diabetes 2016, [place] [employer]. Diabetes Care. 2016.39(Suppl 1). Performed By: #### 2 4321-2, 94400-9, 2776-07 ####[facility] LABCLIA [id number] [place] [address] [place] Potassium [Moles/Vol] 4.2 mmol/L Normal 3.7-5.1 [facility] Comment on above: Order Comment: Speci men Type: BLOOD SPECIMENOrdering Facility: [facility] Address: [address] [place] [address] Performed By: #### 2 4321-2, , 2776-07 ####[facility] LABCLIA [id number] [place] [address] [place] Sodium [Moles/Vol] 141 mmol/L Normal 136-144 [facility] Comment on above: Order Comment: Speci men Type: BLOOD SPECIMENOrdering Facility: [facility] Address: [address] [place] [address] Performed By: #### 2 4321-2, , 2776-07 ####[facility] LABIA [id number] [place] [address] [place] Urea nitrogen [Mass/Vol] 12 mg/dL Normal 7-21 [facility] Comment on above: Order Comment: Speci men Type: BLOOD SPECIMENOrdering Facility: [facility] Address: [address] [place] [address] Performed By: #### 2 4321-2, , 2776-07 ####[facility] LABIA [id number] [place] [address] [place] CBC panel Auto (Bld)on 05-05 Erythrocyte distribution width (RBC) [Ratio] 17.4 % High 11.5-15.0 [facility] Comment on above: Order Comment: Speci men Type: BLOOD SPECIMENOrdering Facility: [facility] Address: [address] [place] [address] Performed By: #### 5 8410-2 ####[facility] LABCLIA [id number] [id number] [address] [place] Hematocrit (Bld) [Volume fraction] 31.4 % Low 36.0-46.0 [facility] Comment on above: Order Comment: Speci men Type: BLOOD SPECIMENOrdering Facility: [facility] Address: [address] [place] [address] Performed By: #### 5 8410-2 ####[facility] LABIA [id number] [place] [address] [place] Hemoglobin (Bld) [Mass/Vol] 9.8 g/dL Low 11.5-15.5 [facility] Comment on above: Order Comment: Speci men Type: BLOOD SPECIMENOrdering Facility: [facility] Address: [address] [place] [address] Performed By: #### 5 8410-2 ####[facility] LABIA [id number] [place] [address] [place] MCH (RBC) [Entitic mass] 26.8 pg Normal 26.0-34.0 [facility] Comment on above: Order Comment: Speci men Type: BLOOD SPECIMENOrdering Facility: [facility] Address: [address] [place] [address] Performed By: #### 5 8410-2 ####[facility] LABIA [id number] [place] [address] [place] MCHC (RBC) [Mass/Vol] 31.2 g/dL Normal 30.5-36.0 [facility] Comment on above: Order Comment: Speci men Type: BLOOD SPECIMENOrdering Facility: [facility] Address: [address] [place] [address] Performed By: #### 5 8410-2 ####[facility] LABIA [id number] [place] [address] [place] MCV (RBC) [Entitic vol] 86.0 fL Normal 80.0-100.0 [facility] Comment on above: Order Comment: Speci men Type: BLOOD SPECIMENOrdering Facility: [facility] Address: [address] [place] [address] Performed By: #### 5 8410-2 ####[facility] LABCLIA [id number] [place] [address] [place] Nucleated RBC (Bld) [#/Vol] 10*3/uL Normal <0.01 [facility] Comment on above: Order Comment: Speci men Type: BLOOD SPECIMENOrdering Facility: [facility] Address: [address] [place] [address] Performed By: #### 5 8410-2 ####[facility] LABCLIA [id number] [place] [address] [place] Platelet mean volume (Bld) [Entitic vol] 10.0 fL Normal 9.0-12.7 [facility] Comment on above: Order Comment: Speci men Type: BLOOD SPECIMENOrdering Facility: [facility] Address: [address] [place] [address] Performed By: #### 5 8410-2 ####[facility] LABCLIA [id number] [place] [address] [place] Platelets (Bld) [#/Vol] 179 10*3/uL Normal 150-400 [facility] Comment on above: Order Comment: Speci men Type: BLOOD SPECIMENOrdering Facility: [facility] Address: [address] [place] [address] Performed By: #### 5 8410-2 ####[facility] LABCLIA [id number] [place] [address] [place] RBC (Bld) [#/Vol] 3.65 10*6/uL Low 3.90-5.20 [facility] Comment on above: Order Comment: Speci men Type: BLOOD SPECIMENOrdering Facility: [facility] Address: [address] [place] [address] Performed By: #### 5 8410-2 ####[facility] LABCLIA [id number] [place] [address] [place] WBC (Bld) [#/Vol] 3.82 10*3/uL Normal 3.70-11.00 [facility] Comment on above: Order Comment: Speci men Type: BLOOD SPECIMENOrdering Facility: [facility] Address: [address] [place] [address] Performed By: #### 5 8410-2 ####[facility] LABIA [id number] [place] [address] [place] Erythrocyte distribution width (RBC) [Ratio] 17.3 % High 11.5-15.0 [facility] Comment on above: Order Comment: Speci men Type: BLOOD SPECIMENOrdering Facility: [facility] Address: [address] [place] [address] Performed By: #### 5 8410-2 ####[facility] LABIA [id number] [place] [address] [place] Hematocrit (Bld) [Volume fraction] 30.8 % Low 36.0-46.0 [facility] Comment on above: Order Comment: Speci men Type: BLOOD SPECIMENOrdering Facility: [facility] Address: [address] [place] [address] Performed By: #### 5 8410-2 ####[facility] LABIA [id number] [place] [address] [place] Hemoglobin (Bld) [Mass/Vol] 9.7 g/dL Low 11.5-15.5 [facility] Comment on above: Order Comment: Speci men Type: BLOOD SPECIMENOrdering Facility: [facility] Address: [address] [place] [address] Performed By: #### 5 8410-2 ####[facility] LABIA [id number] [place] [address] [place] MCH (RBC) [Entitic mass] 26.8 pg Normal 26.0-34.0 [facility] Comment on above: Order Comment: Speci men Type: BLOOD SPECIMENOrdering Facility: [facility] Address: [address] [place] [address] Performed By: #### 5 8410-2 ####[facility] LABIA [id number] [place] [address] [place] MCHC (RBC) [Mass/Vol] 31.5 g/dL Normal 30.5-36.0 [facility] Comment on above: Order Comment: Speci men Type: BLOOD SPECIMENOrdering Facility: [facility] Address: [address] [place] [address] Performed By: #### 5 8410-2 ####[facility] LABIA [id number] [place] [address] [place] MCV (RBC) [Entitic vol] 85.1 fL Normal 80.0-100.0 [facility] Comment on above: Order Comment: Speci men Type: BLOOD SPECIMENOrdering Facility: [facility] Address: [address] [place] [address] Performed By: #### 5 8410-2 ####[facility] LABIA [id number] [place] [address] [place] Nucleated RBC (Bld) [#/Vol] 10*3/uL Normal <0.01 [facility] Comment on above: Order Comment: Speci men Type: BLOOD SPECIMENOrdering Facility: [facility] Address: [address] [place] [address] Performed By: #### 5 8410-2 ####[facility] LABIA [id number] [place] [address] [place] Platelet mean volume (Bld) [Entitic vol] 9.9 fL Normal 9.0-12.7 [facility] Comment on above: Order Comment: Speci men Type: BLOOD SPECIMENOrdering Facility: [facility] Address: [address] [place], [place] [address] Performed By: #### 5 8410-2 ####[facility] LABCLIA [id number] [place] [address] [place] Platelets (Bld) [#/Vol] 169 10*3/uL Normal 150-400 [facility] Comment on above: Order Comment: Speci men Type: BLOOD SPECIMENOrdering Facility: [facility] Address: [address] [place] [address] Performed By: #### 5 8410-2 ####[facility] LABIA [id number] [place] [address] [place] RBC (Bld) [#/Vol] 3.62 10*6/uL Low 3.90-5.20 [facility] Comment on above: Order Comment: Speci men Type: BLOOD SPECIMENOrdering Facility: [facility] Address: [address] [place] [address] Performed By: #### 5 8410-2 ####[facility] LABIA [id number] [place] [address] [place] WBC (Bld) [#/Vol] 3.62 10*3/uL Low 3.70-11.00 [facility] Comment on above: Order Comment: Speci men Type: BLOOD SPECIMENOrdering Facility: [facility] Address: [address] [place] [address] Performed By: #### 5 8410-2 ####[facility] LABIA [id number] [place] [id number] [place] CT DRN PLACE PERIT/RETROP [place] BIon 05-05-[address] PERIT/RETROP FL BI Normal [facility] HISTORY PHYSICALon HISTORY PHYSICAL Normal [facility] Magnesium SerPl-mCncon 05-05 Magnesium [Mass/Vol] 1.7 mg/dL Normal 1.7-2.[address] [facility] Comment on above: Order Comment: Speci men Type: BLOOD SPECIMENOrdering Facility: [facility] Address: [address] [place] [address] Performed By: #### 2 777-1, 60684-0, 23072-2 ####[facility] [id number] [place] [address] [place] Magnesium [Mass/Vol] 1.8 mg/dL Normal 1.7-2.[address] [facility] Comment on above: Order Comment: Speci men Type: BLOOD SPECIMENOrdering Facility: [facility] Address: [address] [place] [address] Performed By: #### 2 4321-2, 40263-6, 2777-1 ####[facility] [id number] [place] [address] [place] Microorganism Spec Culton Microorganism identified Cx Nom (Unsp spec) CULTURE, FUNGAL: No Fungus isolated after 28 days FUNGAL SMEAR: No fungus seen Normal [facility] Comment on above: Performed By: #### 6 35-3, 6462-6, 38726-6 ####[facility] [id number] [place] [address] [place] PT EDon 05-05-2023 PT ED Normal [facility] PT panel Coag (PPP)on 2022 INR Coag (PPP) [Relative time] 1.0 {INR} Normal 0.9-1.3 [facility] Comment on above: Order Comment: Speci men Type: BLOOD SPECIMENOrdering Facility: [facility] Address: [address] [place] [address] Result Comment: Michelle min K Antagonist (VKA) Therapeutic Range: INR 2 to 3 (Target INR of 2.5)Note: For patients treated with VKA drugs, such as warfarin, the [place] [employer] 2012 Guideline recommends a therapeutic INR range of 2 to 3 (target INR of 2.5). This recommendation includes high-risk patients with antiphospholipid syndrome with previous arterial or venous thromboembolism, current-generation mechanical or bioprosthetic aortic heart valve replacement.Note: Patients with mechanical aortic valve replacement and additional risk factors for thromboembolic events (atrial fibrillation, previous thromboembolism, LV dysfunction, hypercoagulable conditions) or an older generation mechanical AVR (i.e., ball in-Cage) or any mechanical MVR should have a INR therapeutic range of 2.5 to 3.5 (target INR of 3).Awilda GH, et al. Chest 2012, 141:7S-47SSenait RA, et al. [facility] 2017, 70: 252-289 Performed By: #### 3 4528-0, 32598-0 ####[facility] [id number] [place] [address] [place] PT Coag (PPP) [Time] 10.6 s Normal 9.7-13.[address] [facility] Comment on above: Order Comment: Speci men Type: BLOOD SPECIMENOrdering Facility: [facility] Address: [address] [place] [address] Performed By: #### 3 4528-0, 05116-0 ####[facility] [id number] [place] [address] [place] Phosphate SerPl-mCncon 05-05 Phosphate [Mass/Vol] 4.2 mg/dL Normal 2.7-4.[address] [facility] Comment on above: Order Comment: Chantale cody Type: BLOOD SPECIMENOrdering Facility: [facility] Address: [address] [place] [address] Performed By: #### 2 777-1, 04537-6, 46987-7 ####[facility] [id number] [place] [address] [place] Phosphate [Mass/Vol] 4.4 mg/dL Normal 2.7-4.[address] [facility] Comment on above: Order Comment: Chantale men Type: BLOOD SPECIMENOrdering Facility: [facility] Address: [address] [place] [address] Performed By: #### 2 4321-2, 20362-5, 2777- ####[facility] [id number] [address] [address] [place] aPTT PPPon 05-05-2023 aPTT Coag (PPP) [Time] 26.0 s Normal 23.0-32.4 [facility] Comment on above: Order Comment: Speci men Type: BLOOD SPECIMENOrdering Facility: [facility] Address: [address] [place] [address] Performed By: #### 3 4528-0, 31582-6 ####[facility] LABIA [id number] [place] [id number] [place] Basic metabolic 2000 panelon 05-04-2023 Anion gap [Moles/Vol] 8 mmol/L Low 9-18 [facility] Comment on above: Order Comment: Speci men Type: BLOOD SPECIMENOrdering Facility: [facility] Address: [address] [place] [address] Performed By: #### 2 4321-2, , 2776-07 ####[facility] LABIA [id number] [place] [address] [place] Calcium [Mass/Vol] 8.4 mg/dL Low 8.5-10.2 [facility] Comment on above: Order Comment: Speci men Type: BLOOD SPECIMENOrdering Facility: [facility] Address: [address] [place] [address] Performed By: #### 2 4321-2, , 27701-02 ####[facility] LABIA [id number] [place] [id number] [place] Chloride [Moles/Vol] 110 mmol/L High 97-[address] [facility] Comment on above: Order Comment: Speci men Type: BLOOD SPECIMENOrdering Facility: [facility] Address: [address] [place] [address] Performed By: #### 2 4321-2, , 2776-07 ####[facility]CL[facility] [id number] [place] [address] [place] CO2 [Moles/Vol] 24 mmol/L Normal 22-30 [facility] Comment on above: Order Comment: Speci men Type: BLOOD SPECIMENOrdering Facility: [facility] Address: [address] [place] [address] Performed By: #### 2 4321-2, , 2776-07 ####[facility] LABIA [id number] [place] [address] [place] Creatinine [Mass/Vol] 0.63 mg/dL Normal 0.58-0.96 [facility] Comment on above: Order Comment: Speci men Type: BLOOD SPECIMENOrdering Facility: [facility] Address: [address] [place] [address] Performed By: #### 2 432-2, , 2776-07 ####[facility] LABIA [id number] [place] [address] [place] Creatinine and Glomerular filtration rate.predicted panel (S/P/Bld) 104 mL/min/1.73m??? Normal >=60 [facility] Comment on above: Order Comment: Speci men Type: BLOOD SPECIMENOrdering Facility: [facility] Address: [address] [place] [address] Result Comment: Terra mated Glomerular Filtration Rate (eGFR) is calculated using the 2020 CKD-EPI creatinine equation. This equation utilizes serum creatinine, sex, and age as parameters. The creatinine assay has traceable calibration to isotope dilution-mass spectrometry. Refer to KDIGO guidelines for clinical interpretation. In patients with unstable renal function, e.g. those with acute kidney injury, the eGFR may not accurately reflect actual GFR. Performed By: #### 2 4321-2, , 2776-07 ####[facility] LABIA [id number] [place] [address] [place] Glucose [Mass/Vol] 88 mg/dL Normal 74-99 [facility] Comment on above: Order Comment: Speci men Type: BLOOD SPECIMENOrdering Facility: [facility] Address: [address] [place] [address] Result Comment: The [place] [employer] (ADA) provides guidance for cutoff values for fasting glucose and random glucose. The ADA defines fasting as no caloric intake for at least 8 hours. Fasting plasma glucose results between 100 to 125 mg/dL indicate increased risk for diabetes (prediabetes).Fasting plasma glucose results greater than or equal to 126 mg/dL meet the criteria for diagnosis of diabetes. In the absence of unequivocal hyperglycemia, results should be confirmed by repeat testing. In a patient with classic symptoms of hyperglycemia or hyperglycemic crisis, random plasma glucose results greater than or equal to 200 mg/dL meet the criteria for diagnosis of diabetes.Reference: Standards of Medical Care in Diabetes 2016, [place] [employer]. Diabetes Care. 2016.39(Suppl 1). Performed By: #### 2 4321-2, , 2776-07 ####[facility]CLIA [id number] [place] [address] [place] Potassium [Moles/Vol] 3.8 mmol/L Normal 3.7-5.1 [facility] Comment on above: Order Comment: Speci men Type: BLOOD SPECIMENOrdering Facility: [facility] Address: [address] [place] [address] Performed By: #### 2 4321-2, , 2776-07 ####[facility] LABCLIA [id number] [place] [address] [place] Sodium [Moles/Vol] 142 mmol/L Normal 136-144 [facility] Comment on above: Order Comment: Speci men Type: BLOOD SPECIMENOrdering Facility: [facility] Address: [address] [place] [address] Performed By: #### 2 4321-2, , 2776-07 ####[facility] LABCLIA [id number] [place] [address] [place] Urea nitrogen [Mass/Vol] 17 mg/dL Normal 7-21 [facility] Comment on above: Order Comment: Speci men Type: BLOOD SPECIMENOrdering Facility: [facility] Address: [address] [place] [address] Performed By: #### 2 4321-2, 19488-0, 2777-1 ####[facility] LABCLIA [id number] [place] [address] [place] CASE MGT INIT ASSESon 2022 CASE MGT INIT ASSES Normal [facility] CBC panel Auto (Bld)on 05-04 Erythrocyte distribution width (RBC) [Ratio] 17.4 % High 11.5-15.0 [facility] Comment on above: Order Comment: Speci men Type: BLOOD SPECIMENOrdering Facility: [facility] Address: [address] [place] [address] Performed By: #### 5 8410-2 ####[facility] LABIA [id number] [place] [address] [place] Hematocrit (Bld) [Volume fraction] 31.8 % Low 36.0-46.0 [facility] Comment on above: Order Comment: Speci men Type: BLOOD SPECIMENOrdering Facility: [facility] Address: [address] [place] [address] Performed By: #### 5 8410-2 ####[facility] LABCLIA [id number] [place] [address] [place] Hemoglobin (Bld) [Mass/Vol] 10.2 g/dL Low 11.5-15.5 [facility] Comment on above: Order Comment: Speci men Type: BLOOD SPECIMENOrdering Facility: [facility] Address: [address] [place] [address] Performed By: #### 5 8410-2 ####[facility] LABCLIA [id number] [place] [address] [place] MCH (RBC) [Entitic mass] 27.3 pg Normal 26.0-34.0 [facility] Comment on above: Order Comment: Speci men Type: BLOOD SPECIMENOrdering Facility: [facility] Address: [address] [place] [address] Performed By: #### 5 8410-2 ####[facility] LABIA [id number] [place] [address] [place] MCHC (RBC) [Mass/Vol] 32.1 g/dL Normal 30.5-36.0 [facility] Comment on above: Order Comment: Speci men Type: BLOOD SPECIMENOrdering Facility: [facility] Address: [address] [place] [address] Performed By: #### 5 8410-2 ####[facility] LABIA [id number] [place] [address] [place] MCV (RBC) [Entitic vol] 85.0 fL Normal 80.0-100.0 [facility] Comment on above: Order Comment: Speci men Type: BLOOD SPECIMENOrdering Facility: [facility] Address: [address] [place] [address] Performed By: #### 5 8410-2 ####[facility] LABIA [id number] [place] [address] [place] Nucleated RBC (Bld) [#/Vol] 10*3/uL Normal <0.01 [facility] Comment on above: Order Comment: Speci men Type: BLOOD SPECIMENOrdering Facility: [facility] Address: [address] [place] [address] Performed By: #### 5 8410-2 ####[facility]CLIA [id number] [place] [address] [place] Platelet mean volume (Bld) [Entitic vol] 9.8 fL Normal 9.0-12.7 [facility] Comment on above: Order Comment: Speci men Type: BLOOD SPECIMENOrdering Facility: [facility] Address: [address] [place] [address] Performed By: #### 5 8410-2 ####[facility] LABCLIA [id number] [place] [address] [place] Platelets (Bld) [#/Vol] 169 10*3/uL Normal 150-400 [facility] Comment on above: Order Comment: Speci men Type: BLOOD SPECIMENOrdering Facility: [facility] Address: [address] [place] [address] Performed By: #### 5 8410-2 ####[facility] LABIA [id number] [place] [address] [place] RBC (Bld) [#/Vol] 3.74 10*6/uL Low 3.90-5.20 [facility] Comment on above: Order Comment: Speci men Type: BLOOD SPECIMENOrdering Facility: [facility] Address: [address] [place] [address] Performed By: #### 5 8410-2 ####[facility] LABIA [id number] [place] [address] [place] WBC (Bld) [#/Vol] 3.72 10*3/uL Normal 3.70-11.00 [facility] Comment on above: Order Comment: Speci men Type: BLOOD SPECIMENOrdering Facility: [facility] Address: [address] [place] [address] Performed By: #### 5 8410-2 ####[facility] LABIA [id number] [place] [address] [place] CNDSon 05-04-2023 CNDS Normal [facility] CONSULT PROGon 05-04-2023 CONSULT PROG Normal [facility] CT ABD/PEL W IVCONon 023 CT ABD/PEL W IVCON Normal [facility] Magnesium SerPl-mCncon 05-04 Magnesium [Mass/Vol] 1.8 mg/dL Normal 1.7-2.[address] [facility] Comment on above: Order Comment: Speci men Type: BLOOD SPECIMENOrdering Facility: [facility] Address: [address] [place] [address] Performed By: #### 2 4321-2, 69988-3, 2777-1 ####[facility] LABCLIA [id number] [place] [address] [place] Phosphate SerPl-ncon 05-04 Phosphate [Mass/Vol] 3.6 mg/dL Normal 2.7-4.[address] [facility] Comment on above: Order Comment: Speci men Type: BLOOD SPECIMENOrdering Facility: [facility] Address: [address] [place] [address] Performed By: #### 2 4321-2, 46810-1, 2777-1 ####[facility] LABIA [id number] [place] [address] [place] THERAPY NTon 05-04-2023 THERAPY NT Normal [facility] THERAPY NT Normal [facility] CNOVon 05-03-2023 CNOV Normal [facility] HISTORY PHYSICALon HISTORY PHYSICAL Normal [facility] CNPNon 04-29-2023 CNPN Normal [facility] CNPNon 04-15-2023 CNPN Normal [facility] CNOVon 04-13-2023 CNOV Normal [facility] Bacteria Wnd Culton 04-06-20 23 Bacteria identified Cx Nom (Wound) Abnormal [facility] Comment on above: Performed By: #### 6 462-6 ####[facility] LABCLIA [id number] [place] [address] [place] CNOVon 04-06-2023 CNOV Normal [facility] CNOVon 03-18-2023 CNOV Normal [facility] CNOVon 03-11-2023 CNOV Normal [facility] CNOVon 02-25-2023 CNOV Normal [facility] CNOVon 02-08-2023 CNOV Normal [facility] CBC W Auto Differential pane l (Bld)on 02-01-2023 Basophils (Bld) [#/Vol] 0.03 10*3/uL Normal <0.11 [facility] Comment on above: Order Comment: Speci men Type: BLOOD SPECIMEN Ordering Facility: [facility] Address: [address] [place] [address] Performed By: #### 5 7021-8 #### [facility] CLIA [id number] [place] [address] [place] Basophils/100 WBC (Bld) 0.4 % Normal [facility] Comment on above: Order Comment: Speci men Type: BLOOD SPECIMEN Ordering Facility: [facility] Address: [address] [place] [address] Performed By: #### 5 7021-8 #### [facility] CLIA [id number] [place] [address] [place] Differential cell count method Nom (Bld) Auto Normal [facility] Comment on above: Order Comment: Speci men Type: BLOOD SPECIMEN Ordering Facility: [facility] Address: [address] [place] [address] Performed By: #### 5 7021-8 #### [facility] CLIA [id number] [place] [address] [place] Eosinophils (Bld) [#/Vol] 0.16 10*3/uL Normal <0.46 [facility] Comment on above: Order Comment: Speci men Type: BLOOD SPECIMEN Ordering Facility: [facility] Address: [address] [place] [address] Performed By: #### 5 7021-8 #### [facility] CLIA [id number] [place] [address] [place] Eosinophils/100 WBC (Bld) 2.3 % Normal [facility] Comment on above: Order Comment: Speci men Type: BLOOD SPECIMEN Ordering Facility: [facility] Address: [address] [place] [address] Performed By: #### 5 7021-8 #### [facility] [place] [id number] [place] [address] [place] Erythrocyte distribution width (RBC) [Ratio] 12.9 % Normal 11.5-15.0 [facility] Comment on above: Order Comment: Speci men Type: BLOOD SPECIMEN Ordering Facility: [facility] Address: [address] [place] [address] Performed By: #### 5 7021-8 #### [facility] IA [id number] [place] [address] [place] Hematocrit (Bld) [Volume fraction] 38.2 % Normal 36.0-46.0 [facility] Comment on above: Order Comment: Speci men Type: BLOOD SPECIMEN Ordering Facility: [facility] Address: [address] [place] [address] Performed By: #### 5 7021-8 #### [facility] IA [id number] [address] [place] [address] [place] Hemoglobin (Bld) [Mass/Vol] 11.8 g/dL Normal 11.5-15.5 [facility] Comment on above: Order Comment: Speci men Type: BLOOD SPECIMEN Ordering Facility: [facility] Address: [address] [place] [address] Performed By: #### 5 7021-8 #### [facility] IA [id number] [place] [address] [place] Immature granulocytes (Bld) [#/Vol] 10*3/uL Normal <0.10 [facility] Comment on above: Order Comment: Speci men Type: BLOOD SPECIMEN Ordering Facility: [facility] Address: [address] [place] [address] Performed By: #### 5 7021-8 #### [facility] IA [id number] [address] [place] [address] [place] Immature granulocytes/100 WBC (Bld) 0.3 % Normal [facility] Comment on above: Order Comment: Speci men Type: BLOOD SPECIMEN Ordering Facility: [facility] Address: [address] [place] [address] Performed By: #### 5 7021-8 #### [facility] CLIA [id number] [place] Lymphocytes (Bld) [#/Vol] 2.00 10*3/uL Normal 1.00-4.00 [facility] Comment on above: Order Comment: Speci men Type: BLOOD SPECIMEN Ordering Facility: [facility] Address: [address] [place] [address] Performed By: #### 5 7021-8 #### [facility] IA [id number] [address] [place] Lymphocytes/100 WBC (Bld) 28.3 % Normal [facility] Comment on above: Order Comment: Speci men Type: BLOOD SPECIMEN Ordering Facility: [facility] Address: [address] [place] [address] Performed By: #### 5 7021-8 #### [facility] [place] [id number] [place] MCH (RBC) [Entitic mass] 29.4 pg Normal 26.0-34.0 [facility] Comment on above: Order Comment: Speci men Type: BLOOD SPECIMEN Ordering Facility: [facility] Address: [address] Performed By: #### 5 7021-8 #### [facility] IA [id number] [place] MCHC (RBC) [Mass/Vol] 30.9 g/dL Normal 30.5-36.0 [facility] Comment on above: Order Comment: Speci men Type: BLOOD SPECIMEN Ordering Facility: [facility] Address: [address] Performed By: #### 5 7021-8 #### [facility] IA [id number] [address] [place] [address] [place] MCV (RBC) [Entitic vol] 95.0 fL Normal 80.0-100.0 [facility] Comment on above: Order Comment: Speci men Type: BLOOD SPECIMEN Ordering Facility: [facility] Address: [address] [place] [address] Performed By: #### 5 7021-8 #### [facility] IA [id number] [address] [place] [address] [place] Monocytes (Bld) [#/Vol] 0.41 10*3/uL Normal <0.87 [facility] Comment on above: Order Comment: Speci men Type: BLOOD SPECIMEN Ordering Facility: [facility] Address: [address] [place] [address] Performed By: #### 5 7021-8 #### [facility] IA [id number] [place] [address] [place] Monocytes/100 WBC (Bld) 5.8 % Normal [facility] Comment on above: Order Comment: Speci men Type: BLOOD SPECIMEN Ordering Facility: [facility] Address: [address] [place] [address] Performed By: #### 5 7021-8 #### [facility] IA [id number] [address] [place] [address] [place] Neutrophils (Bld) [#/Vol] 4.44 10*3/uL Normal 1.45-7.50 [facility] Comment on above: Order Comment: Speci men Type: BLOOD SPECIMEN Ordering Facility: [facility] Address: [address] [place] [address] Performed By: #### 5 7021-8 #### [facility] IA [id number] [address] [place] [address] [place] Neutrophils/100 WBC (Bld) 62.9 % Normal [facility] Comment on above: Order Comment: Speci men Type: BLOOD SPECIMEN Ordering Facility: [facility] Address: [address] Performed By: #### 5 7021-8 #### [facility] IA [id number] [address] [place] [address] [place] Nucleated RBC (Bld) [#/Vol] 10*3/uL Normal <0.01 [facility] Comment on above: Order Comment: Speci men Type: BLOOD SPECIMEN Ordering Facility: [facility] Address: [address] Performed By: #### 5 7021-8 #### [facility] IA [id number] [address] [place] [address] [place] Nucleated RBC/100 WBC (Bld) [Ratio] 0.0 /100 WBC Normal [facility] Comment on above: Order Comment: Speci men Type: BLOOD SPECIMEN Ordering Facility: [facility] Address: [address] Performed By: #### 5 7021-8 #### [facility] IA [id number] [address] [place] [address] [place] Platelet mean volume (Bld) [Entitic vol] 9.9 fL Normal 9.0-12.7 [facility] Comment on above: Order Comment: Speci men Type: BLOOD SPECIMEN Ordering Facility: [facility] Address: [address] Performed By: #### 5 7021-8 #### [facility] [place] [id number] [facility] [place] [address] [place] Platelets (Bld) [#/Vol] 264 10*3/uL Normal 150-400 [facility] Comment on above: Order Comment: Speci men Type: BLOOD SPECIMEN Ordering Facility: [facility] Address: [address] Performed By: #### 5 7021-8 #### [facility] IA [id number] [facility] [place] [address] [place] RBC (Bld) [#/Vol] 4.02 10*6/uL Normal 3.90-5.20 [facility] Comment on above: Order Comment: Speci men Type: BLOOD SPECIMEN Ordering Facility: [facility] Address: [place] [address] Performed By: #### 5 7021-8 #### [facility] CLIA [id number] [address] [place] [address] [place] WBC (Bld) [#/Vol] 7.06 10*3/uL Normal 3.70-11.00 [facility] Comment on above: Order Comment: Speci men Type: BLOOD SPECIMEN Ordering Facility: [facility] Address: [address] [facility] [address] Performed By: #### 5 7021-8 #### [facility] CLIA [id number] [facility] [place] [address] [place] [address] ABD/PEL W IVCONon 02-01-[address] ABD/PEL W IVCON * * *Final Report* * * DATE OF EXAM: Feb 01 2023 6:16PM [facility] 0530 - CT ABD/PEL W IVCON / PROCEDURE REASON: Post-operative / post-procedure assessment, symptomatic * * * * Physician Interpretation * * * * EXAMINATION: CT ABDOMEN AND PELVIS WITH IV CONTRAST CLINICAL HISTORY: Postoperative assessment. TECHNIQUE: CT of the abdomen and pelvis was performed using standard technique, scanning from just above the dome of the diaphragm to the symphysis pubis. MQ: CTAP_3 Contrast: IV: 120 ml of Omnipaque 300 CT Radiation dose: Integrated Dose-length product (DLP) for this visit = 416 mGy*cm. CT Dose Reduction Employed: Automated exposure control(AEC) and iterative recon COMPARISON: 09/29/2022. RESULT: Liver: No mass. Biliary: Intrahepatic and extra hepatic biliary dilatation is favored secondary to cholecystectomy. Spleen: No mass. No splenomegaly. Pancreas: No mass or duct dilation. Adrenals: No mass. Kidneys: Punctate right nephroliths. No hydronephrosis. GI tract: No dilation or wall thickening. Similar postsurgical changes. Normal appendix. Lymph nodes: No abdominal or pelvic lymphadenopathy. Mesentery/Peritoneum: No ascites or mass. Retroperitoneum: No mass. Vasculature: - Abdominal aorta and iliac arteries: No aneurysm. - Celiac and SMA: Patent without stenosis. - Portal venous system (SMV, splenic vein, portal vein and branches): Patent. - Hepatic veins: Incompletely opacified, likely due to early phase of enhancement. Pelvis: No mass, ascites or fluid collection. Bones/Soft Tissues: Multiple sites of known dehiscent associated with the anterior abdominal wound, one is seen superiorly with approximately 1.5 cm dehiscence of the subcutaneous tissues and the more inferior dehiscence site contains debris or packing and measures up to 7 mm. Vague areas of enhancement with central low attenuation are seen deep to the anterior abdominal wall hernia repair, the largest of these measures up to 2.1 cm in the majorities of these appear to communicate. Lower thorax: Stable sub-6 mm pulmonary nodule in the right lung base, does not require follow-up. Mild bibasilar atelectasis or scarring. [facility] (topogram) images: No additional findings. IMPRESSION: Post surgical changes of an anterior abdominal wall hernia repair with wound dehiscence and deep enhancement either representing granulation tissue or developing abscesses. Nonobstructive right nephrolith. Informatics Developer: RISHI Transcribe Date/Time: Feb 01 2023 6:38P Dictated by : MARIANNE HIDALGO MD This examination was interpreted and the report reviewed and electronically signed by: MARIANNE HIDALGO MD on Feb 01 2023 6:50PM EST [id number] Normal [facility] Comprehensive metabolic 2000 panelon 02-01-2023 Albumin [Mass/Vol] 3.6 g/dL Low 3.9-4.9 [facility] Comment on above: Order Comment: Speci men Type: BLOOD SPECIMEN Ordering Facility: [facility] Address: [address] [id number] Performed By: #### 2 4323-8, 3040-3 #### [facility] CLIA [id number] [facility] [place] [address] [place] ALP [Catalytic activity/Vol] 82 U/L Normal 34-123 [facility] Comment on above: Order Comment: Speci men Type: BLOOD SPECIMEN Ordering Facility: [facility] Address: [address] [address] Performed By: #### 2 4323-8, 0-3 #### [facility] CLIA [id number] [address] [place] [address] [place] ALT [Catalytic activity/Vol] 28 U/L Normal 7-38 [facility] Comment on above: Order Comment: Speci men Type: BLOOD SPECIMEN Ordering Facility: [facility] Address: [address] Performed By: #### 2 4323-8, 0-3 #### [facility] CLIA [id number] [address] [place] [address] [place] Anion gap [Moles/Vol] 10 mmol/L Normal 9-18 [facility] Comment on above: Order Comment: Speci men Type: BLOOD SPECIMEN Ordering Facility: [facility] Address: [address] [place] [address] Performed By: #### 2 4323-8, 3039-3 #### [facility] CLIA [id number] [address] [place] [address] [place] AST [Catalytic activity/Vol] 25 U/L Normal 13-35 [facility] Comment on above: Order Comment: Speci men Type: BLOOD SPECIMEN Ordering Facility: [facility] Address: [address] [place] [address] Performed By: #### 2 4323-8, 0-3 #### [facility] CLIA [id number] [address] [place] [address] [place] Bilirubin [Mass/Vol] 0.3 mg/dL Normal 0.2-1.3 [facility] Comment on above: Order Comment: Speci men Type: BLOOD SPECIMEN Ordering Facility: [facility] Address: [address] [place], [place] [address] Performed By: #### 2 4323-8, 0-3 #### [facility] CLIA [id number] [address] [place] [address] [place] Calcium [Mass/Vol] 9.4 mg/dL Normal 8.5-10.2 [facility] Comment on above: Order Comment: Speci men Type: BLOOD SPECIMEN Ordering Facility: [facility] Address: [address] [address] Performed By: #### 2 4323-8, 0-3 #### [facility] CLIA [id number] [address] [place] [address] [place] Chloride [Moles/Vol] 103 mmol/L Normal 97-105 [facility] Comment on above: Order Comment: Speci men Type: BLOOD SPECIMEN Ordering Facility: [facility] Address: [address] [address] Performed By: #### 2 4323-8, 0-3 #### [facility] CLIA [id number] [address] [place] [address] [place] CO2 [Moles/Vol] 28 mmol/L Normal 22-30 [facility] Comment on above: Order Comment: Speci men Type: BLOOD SPECIMEN Ordering Facility: [facility] Address: [address] [address] Performed By: #### 2 4323-8, 0-3 #### [facility] CLIA [id number] [address] [place] [address] [place] Creatinine [Mass/Vol] 0.57 mg/dL Low 0.58-0.96 [facility] Comment on above: Order Comment: Speci men Type: BLOOD SPECIMEN Ordering Facility: [facility] Address: [address] [address] Performed By: #### 2 4323-8, 0-3 #### [facility] CLIA [id number] [address] [place] [address] [place] ESTIMATED GLOMERULAR FILTRATION RATE 107 mL/min/1.73m??? Normal >=60 [facility] Comment on above: Order Comment: Speci men Type: BLOOD SPECIMEN Ordering Facility: [facility] Address: [address] [place] [address] Result Comment: Terra mated Glomerular Filtration Rate (eGFR) is calculated using the 2020 CKD-EPI creatinine equation. This equation utilizes serum creatinine, sex, and age as parameters. The creatinine assay has traceable calibration to isotope dilution-mass spectrometry. Refer to KDIGO guidelines for clinical interpretation. In patients with unstable renal function, e.g. those with acute kidney injury, the eGFR may not accurately reflect actual GFR. Performed By: #### 2 4323-8, 0-3 #### [facility] CLIA [id number] [address] [place] [address] [place] Glucose [Mass/Vol] 93 mg/dL Normal 74-99 [facility] Comment on above: Order Comment: Chantale cody Type: BLOOD SPECIMEN Ordering Facility: [facility] Address: [address] [id number] Result Comment: The [place] [employer] (ADA) provides guidance for cutoff values for fasting glucose and random glucose. The ADA defines fasting as no caloric intake for at least 8 hours. Fasting plasma glucose results between 100 to 125 mg/dL indicate increased risk for diabetes (prediabetes). Fasting plasma glucose results greater than or equal to 126 mg/dL meet the criteria for diagnosis of diabetes. In the absence of unequivocal hyperglycemia, results should be confirmed by repeat testing. In a patient with classic symptoms of hyperglycemia or hyperglycemic crisis, random plasma glucose results greater than or equal to 200 mg/dL meet the criteria for diagnosis of diabetes. Reference: Standards of Medical Care in Diabetes 2016, [place] [employer]. Diabetes Care. 2016.39(Suppl 1). Performed By: #### 2 4323-8, 0-3 #### [facility] CLIA [id number] [address] [place] [address] [place] Potassium [Moles/Vol] 4.3 mmol/L Normal 3.7-5.1 [facility] Comment on above: Order Comment: Chantale cody Type: BLOOD SPECIMEN Ordering Facility: [facility] Address: [address] [place] [address] Performed By: #### 2 4323-8, 0-3 #### [facility] CLIA [id number] [address] [place] [address] [place] Protein [Mass/Vol] 7.4 g/dL Normal 6.3-8.0 [facility] Comment on above: Order Comment: Speci men Type: BLOOD SPECIMEN Ordering Facility: [facility] Address: [address] [address] Performed By: #### 2 4323-8, 3040-3 #### [facility] CLIA [id number] [address] [place] [address] [place] Sodium [Moles/Vol] 141 mmol/L Normal 136-144 [facility] Comment on above: Order Comment: Speci men Type: BLOOD SPECIMEN Ordering Facility: [facility] Address: [address] [address] Performed By: #### 2 4323-8, 3040-3 #### [facility] CLIA [id number] [address] [place] [address] [place] Urea nitrogen [Mass/Vol] 15 mg/dL Normal 7-21 [facility] Comment on above: Order Comment: Speci men Type: BLOOD SPECIMEN Ordering Facility: [facility] Address: [address] [address] Performed By: #### 2 4323-8, 3040-3 #### [facility] CLIA [id number] [address] [place] [address] [facility] ED NOTEon 02-01-2023 ED NOTE HNO ID: [id number] Author: Saritha Briones RN Service: ? Author Type: Registered Nurse Type: ED Notes Filed: 02/01/2023 7:59 PM Note Text: Pt provided with discharge and f/u instruction. Pt verbalized understanding and denies any further questions at this time. Pt left the ED in stable condition, ambulatory with a steady gait. [facility] ED NOTE HNO ID: [id number] Author: Saritha Briones RN Service: ? Author Type: Registered Nurse Type: ED Notes Filed: 02/01/2023 5:16 PM Note Text: Clean, dry dressing present to midline surgical incision. [facility] ED NOTE HNO ID: [id number] Author: Georgette Dias RN Service: ? Author Type: Registered Nurse Type: ED Notes Filed: 02/01/2023 3:12 PM Note Text: Recent abd surgery December 30. Opened me back up on January 12 and last sent by ENVIRONMENTAL SAFETY SPECIALIST for CT. Normal [facility] ED PROV NOTEon 02-01-2023 ED PROV NOTE HNO ID: [id number] Author: David Lopez MD Service: Emergency Medicine Author Type: Physician Type: ED Provider Notes Filed: 02/01/2023 11:03 PM Note Text: ED Provider Note Patient Name: Yari Daily : 1965 SERVICE DATE: 02/01/23 History Patient presents with: Abdominal Pain: Recent surg December 30. January 12 they opened part of the wound back up and did the same thing on pain since. Patient is a 57-year-old female presenting to the emergency department today with complaint of left side abdominal pain. Patient had surgery on December 30, there is prior surgery of ventral hernia with 3 mesh patches, this was revised to a single large mesh patch. Review of notes indicates that there was a dehiscence of the wound, and some concern over cellulitis developing. Patient has wet-to-dry wound packing placed, has been following with surgery. She indicates that there has been further wound dehiscence, but she has developed this left side abdominal pain. Patient has history of seromas from previous surgery, it appears on review that there was ileus shortly after the surgery, however patient states that there is regular bowel movements, no constipation, hematochezia or melena. Patient has been in contact with providers, was sent to the emergency department by the nurse practitioner for evaluation and possible CT. 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 SVT (supraventricular tachycardia) ([facility]) 12/17/2022 PAST SURGICAL HISTORY Procedure Laterality Date EGD W/O BRSH SPEC VARICIES INJ EVACUATION OF SEROMA 05/2016 HYSTERECTOMY HX 1999 LAMINECTOMY W/O FFD 1/2 VERT SEG LUMBAR MIDLINE INSERTION/CONSULT 12/15/2021 PAST SURGICAL HISTORY OF Left elbow surgery PAST SURGICAL HISTORY OF hernia - multiple PAST SURGICAL HISTORY OF c section X2 PAST SURGICAL HISTORY OF gallbladder PAST SURGICAL HISTORY OF tummy tuck REDUCTION OF LARGE BREAST TONSILLECTOMY HX as a child TUBAL LIGATION HX 03/2001 FAMILY HISTORY Problem Relation Age of Onset Diabetes Mother of COPD Ischemic Heart Disease Mother 55 Angioplasty other (Myocardial infarction) Father 35 of COPD and dementia 79 Glaucoma Maternal Aunt Anesthesia Problems No Family History Social History Tobacco Use Smoking status: Former Packs/day: 0.50 Years: 5.00 Total pack years: 2.50 Types: Cigarettes Quit date: 04/13/1998 Years since quittin.8 Smokeless tobacco: Never Substance and Sexual Activity Alcohol use: Not Currently Comment: none in a year as of 02/2022. Drug use: No Comment: denies tx for drug/alcohol abuse in the past. Sexual activity: Not on file ALLERGIES Allergen Reactions Codeine Anaphylaxis Tolerated hydromorphone 03/2022 Keflex [Cephalexin] Hives, Other: See Comments Peeling of skin. Has received multiple courses of piperacillin/tazobactam without noted reaction inpatient. Tramadol Intolerance Review of Systems HENT: Negative. Respiratory: Negative for shortness of breath. Cardiovascular: Negative for chest pain. Gastrointestinal: Positive for abdominal pain and nausea. Negative for constipation, diarrhea and vomiting. Musculoskeletal: Negative. Skin: Negative. Neurological: Negative. All other systems reviewed and are negative. Physical Exam Vitals BP Pulse Temp Temp src Resp SpO2 Weight Height 02/01/23 1510 02/01/23 1510 02/01/23 1510 02/01/23 1510 02/01/23 1701 02/01/23 1510 02/01/23 1510 02/01/23 1510 110/77 (!) 54 36.3 ?C (97.4 ?F) Oral 16 99 % 59.9 kg (132 lb) 1.6 m (5' 3 ) Physical Exam Vitals and nursing note reviewed. Constitutional: General: She is awake. She is not in acute distress. Appearance: Normal appearance. She is well-developed. She is not diaphoretic. HENT: Head: Normocephalic and atraumatic. Eyes: General: Vision grossly intact. Neck: Trachea: Phonation normal. Cardiovascular: Rate and Rhythm: Normal rate and regular rhythm. Pulses: Normal pulses. Heart sounds: Normal heart sounds. Pulmonary: Effort: Pulmonary effort is normal. Breath sounds: Normal breath sounds. Abdominal: Tenderness: There is abdominal tenderness in the left upper quadrant and left lower quadrant. Comments: Patient has some tenderness in the left side of the abdomen, some nodules noted in the left lower quadrant, patient is unsure (more content not included)... Normal [facility] ED Triage Noteon 02-01-2023 ED Triage Note HNO ID: [id number] Author: Jayce Ronquillo PA-C Service: Emergency Medicine Author Type: Physician Controller Instructor Type: ED Triage Notes Filed: 02/01/2023 3:24 PM Note Text: ED INTAKE NOTE Patient Name: Yari Daily Service Date: 02/01/23 BRIEF HPI: 57-year-old female presents with complaint of abdominal pain. Locating pain to the left, mid abdominal region. Describes it as sharp. Has been having pain since surgery 3 weeks ago, but has been worse over the past 2 days. BRIEF EXAM: Awake and Alert RRR CTAB INTAKE WORKUP: Bloodwork: CBC CMP Lipase Urinalysis Imaging: CT: Abd/pelvis SIGNATURE: Jayce Ronquillo PA-C Normal [facility] Lipase SerPl-cCncon 02-02-20 23 Lipase [Catalytic activity/Vol] 25 U/L Normal 16-61 [facility] Comment on above: Order Comment: Chantale cody Type: BLOOD SPECIMEN Ordering Facility: [facility] Address: [address] [place] [phone] Performed By: #### 2 4323-8, 3040-3 #### [facility] CLIA [id number] [facility] [place] [address] [place] Urinalysis complete panel (U )on 02-01-2023 Bacteria LM.HPF (Urine sed) [#/Area] Few Abnormal None Seen [facility] Comment on above: Order Comment: Chantale cody Type: URINE SPECIMEN Ordering Facility: [facility] Address: [address] [address] Performed By: #### 2 4356-8 #### [facility] IA [id number] [address] [place] [address] [place] Bilirubin Ql (U) Negative Normal Negative [facility] Comment on above: Order Comment: Speci men Type: URINE SPECIMEN Ordering Facility: [facility] Address: [address] [address] Performed By: #### 2 4356-8 #### [facility] IA [id number] [address] [place] [address] [place] CALCIUM OXALATE CRYSTALS (UA) Few Abnormal None Seen [facility] Comment on above: Order Comment: Speci men Type: URINE SPECIMEN Ordering Facility: [facility] Address: [address] [address] Performed By: #### 2 4356-8 #### [facility] [id number] [address] [place] [address] [place] Clarity (Unsp spec) Slightly Cloudy Abnormal Clear [facility] Comment on above: Order Comment: Speci men Type: URINE SPECIMEN Ordering Facility: [facility] Address: [address] [address] Performed By: #### 2 4356-8 #### [facility] IA [id number] [address] [place] [address] [place] Color (U) Yellow Normal Yellow [facility] Comment on above: Order Comment: Speci men Type: URINE SPECIMEN Ordering Facility: [facility] Address: [address] [address] Performed By: #### 2 4356-8 #### [facility] IA [id number] [address] [place] [address] [place] Epithelial cells LM.HPF (Urine sed) [#/Area] Few Normal [facility] Comment on above: Order Comment: Speci men Type: URINE SPECIMEN Ordering Facility: [facility] Address: [address] [address] Result Comment: Few Performed By: #### 2 4356-8 #### [facility] CLIA [id number] [address] [place], [place] [id number] [place] [address] Glucose Test strip (U) [Mass/Vol] Negative Normal Negative [facility] Comment on above: Order Comment: Speci men Type: URINE SPECIMEN Ordering Facility: [facility] Address: [address] [address] Performed By: #### 2 4356-8 #### [facility] CLIA [id number] [place] [id number] [place] [address] [place] Hemoglobin Ql (U) Negative Normal Negative [facility] Comment on above: Order Comment: Speci men Type: URINE SPECIMEN Ordering Facility: [facility] Address: [address] [address] Performed By: #### 2 4356-8 #### [facility] IA [id number] [address] [place] [address] [place] Ketones Ql (U) Negative Normal Negative [facility] Comment on above: Order Comment: Speci men Type: URINE SPECIMEN Ordering Facility: [facility] Address: [address] [address] Performed By: #### 2 4356-8 #### [facility] IA [id number] [place] [id number] [place] [address] OF [facility] Leukocyte esterase Test strip Ql (U) Trace Abnormal Negative [facility] Comment on above: Order Comment: Speci men Type: URINE SPECIMEN Ordering Facility: [facility] Address: [address] [address] Performed By: #### 2 4356-8 #### [facility] IA [id number] [place] [address] [place] Nitrite Ql (U) Negative Normal Negative [facility] Comment on above: Order Comment: Speci men Type: URINE SPECIMEN Ordering Facility: [facility] Address: [address] [address] Performed By: #### 2 4356-8 #### [facility] IA [id number] [address] [place] [address] [place] pH (U) 5.5 [pH] Normal 5.0-8.0 [facility] Comment on above: Order Comment: Speci men Type: URINE SPECIMEN Ordering Facility: [facility] Address: [address] [address] Performed By: #### 2 4356-8 #### [facility] [place] [id number] [place] [address] [place] Protein (U) [Mass/Vol] Negative Normal Negative [facility] Comment on above: Order Comment: Speci men Type: URINE SPECIMEN Ordering Facility: [facility] Address: [address] [place] [address] Performed By: #### 2 4356-8 #### [facility] [id number] [address] [place] [address] [place] RBC LM.HPF (Urine sed) [#/Area] 0-3 /HPF Normal 0-3 /HPF [facility] Comment on above: Order Comment: Speci men Type: URINE SPECIMEN Ordering Facility: [facility] Address: [address] [place] [address] Performed By: #### 2 4356-8 #### [facility] [id number] [place] [address] [place] Specific gravity (U) [Rel density] 1.020 Normal 1.005-1.03 0 [facility] Comment on above: Order Comment: Speci men Type: URINE SPECIMEN Ordering Facility: [facility] Address: [address] [place] [place] [address] Performed By: #### 2 4356-8 #### [facility] [id number] [address] [place] [address] [place] Urobilinogen Ql (U) 0.2 EU/dL Normal 0.2-1.0 EU/dL [facility] Comment on above: Order Comment: Speci men Type: URINE SPECIMEN Ordering Facility: [facility] Address: [address] [place] [address] Performed By: #### 2 4356-8 #### [facility] [place] [id number] [address] [place] [address] [place] WBC LM.HPF (Urine sed) [#/Area] 6-10 /HPF Abnormal 0-5 /HPF [facility] Comment on above: Order Comment: Speci men Type: URINE SPECIMEN Ordering Facility: [facility] Address: [address] Performed By: #### 2 4356-8 #### [facility] [place] [id number] [address] [place] [address] [place] CNOVon 01-28-2023 CNOV Normal [facility] CNOVon 01-22-2023 CNOV Normal [facility] Bacteria Wnd Culton 01-13-20 23 Bacteria identified Cx Nom (Wound) Abnormal [facility] Comment on above: Performed By: #### 6 462-6 ####[facility] [id number] [place] [address] [place] CNOVon 01-12-2023 CNOV Normal [facility] CNPNon 01-12-2023 CNPN Normal [facility] CNPNon 01-11-2023 CNPN Normal [facility] CNPNon 01-10-2023 CNPN Normal [facility] CNPNon 01-09-2023 CNPN Normal [facility] Basic metabolic 2000 panelon 01-04-2023 Anion gap [Moles/Vol] 12 mmol/L Normal 9-18 [facility] Comment on above: Order Comment: Speci men Type: BLOOD SPECIMENOrdering Facility: [facility] Address: [address] [place] [address] Performed By: #### 2 4321-2, 11561-7, 2777-1, 1988- ####[facility] [id number] [place] [address] [place] Calcium [Mass/Vol] 9.0 mg/dL Normal 8.5-10.2 [facility] Comment on above: Order Comment: Speci men Type: BLOOD SPECIMENOrdering Facility: [facility] Address: [address] [place] [address] [place] [id number] Performed By: #### 2 432-2, , 2776-07, 1987-11 ####[facility] [id number] [place] [id number] [place] Chloride [Moles/Vol] 103 mmol/L Normal 97-[address] [facility] Comment on above: Order Comment: Speci men Type: BLOOD SPECIMENOrdering Facility: [facility] Address: [address] [place], [place] [address] Performed By: #### 2 432-2, , 2776-07, 1987-11 ####[facility] [id number] [place] [address] [place] CO2 [Moles/Vol] 26 mmol/L Normal 22-30 [facility] Comment on above: Order Comment: Speci men Type: BLOOD SPECIMENOrdering Facility: [facility] Address: [address] [place], [place] [address] Performed By: #### 2 432-2, , 2776-07, 1987-11 ####[facility] [id number] [place] [address] [place] Creatinine [Mass/Vol] 0.74 mg/dL Normal 0.58-0.96 [facility] Comment on above: Order Comment: Speci men Type: BLOOD SPECIMENOrdering Facility: [facility] Address: [address] [place], [place] [address] Performed By: #### 2 4321-2, , 2776-07, 1987-11 ####[facility] [id number] [address] [address] [place] ESTIMATED GLOMERULAR FILTRATION RATE 95 mL/min/1.73m??? Normal >=60 [facility] Comment on above: Order Comment: Chantale glo Type: BLOOD SPECIMENOrdering Facility: [facility] Address: [address] [place], [place] [address] Result Comment: Terra mated Glomerular Filtration Rate (eGFR) is calculated using the 2020 CKD-EPI creatinine equation. This equation utilizes serum creatinine, sex, and age as parameters. The creatinine assay has traceable calibration to isotope dilution-mass spectrometry. Refer to KDIGO guidelines for clinical interpretation. In patients with unstable renal function, e.g. those with acute kidney injury, the eGFR may not accurately reflect actual GFR. Performed By: #### 2 4321-2, , 1987-11 ####[facility] [id number] [place] [address] [place] Glucose [Mass/Vol] 89 mg/dL Normal 74-99 [facility] Comment on above: Order Comment: Chantale cody Type: BLOOD SPECIMENOrdering Facility: [facility] Address: [address] [place], [place] [address] Result Comment: The [place] [employer] (ADA) provides guidance for cutoff values for fasting glucose and random glucose. The ADA defines fasting as no caloric intake for at least 8 hours. Fasting plasma glucose results between 100 to 125 mg/dL indicate increased risk for diabetes (prediabetes).Fasting plasma glucose results greater than or equal to 126 mg/dL meet the criteria for diagnosis of diabetes. In the absence of unequivocal hyperglycemia, results should be confirmed by repeat testing. In a patient with classic symptoms of hyperglycemia or hyperglycemic crisis, random plasma glucose results greater than or equal to 200 mg/dL meet the criteria for diagnosis of diabetes.Reference: Standards of Medical Care in Diabetes 2016, [place] [employer]. Diabetes Care. 2016.39(Suppl 1). Performed By: #### 2 4321-2, , 1987-11 ####[facility] [id number] [place] [id number] [place] Potassium [Moles/Vol] 4.4 mmol/L Normal 3.7-5.1 [facility] Comment on above: Order Comment: Speci men Type: BLOOD SPECIMENOrdering Facility: [facility] Address: [address] [place], [place] [address] Performed By: #### 2 4321-2, , 2776-07, 1987-11 ####[facility] [id number] [place] [address] [place] Sodium [Moles/Vol] 141 mmol/L Normal 136-144 [facility] Comment on above: Order Comment: Speci men Type: BLOOD SPECIMENOrdering Facility: [facility] Address: [address] [place], [place] [address] Performed By: #### 2 432-2, , 2776-07, 1987-11 ####[facility] [id number] [place] [address] [place] Urea nitrogen [Mass/Vol] 13 mg/dL Normal 7-21 [facility] Comment on above: Order Comment: Speci men Type: BLOOD SPECIMENOrdering Facility: [facility] Address: [address] [place], [place] [address] Performed By: #### 2 432-2, , 2776-07, 1987-11 ####[facility] [id number] [place] [id number] [place] CASE MANAGEMon 01-04-2023 CASE MANAGEM Normal [facility] CBC panel Auto (Bld)on 01-04 Erythrocyte distribution width (RBC) [Ratio] 12.8 % Normal 11.5-15.0 [facility] Comment on above: Order Comment: Speci men Type: BLOOD SPECIMENOrdering Facility: [facility] Address: [address] [place] [address] Performed By: #### 5 8410-2 ####[facility] [id number] [place] [address] [place] Hematocrit (Bld) [Volume fraction] 36.3 % Normal 36.0-46.0 [facility] Comment on above: Order Comment: Speci men Type: BLOOD SPECIMENOrdering Facility: [facility] Address: [address] [place] [address] Performed By: #### 5 8410-2 ####[facility] [id number] [place] [address] [place] Hemoglobin (Bld) [Mass/Vol] 11.8 g/dL Normal 11.5-15.5 [facility] Comment on above: Order Comment: Speci men Type: BLOOD SPECIMENOrdering Facility: [facility] Address: [address] [place] [address] Performed By: #### 5 8410-2 ####[facility] [id number] [address] STATES OF [facility] MCH (RBC) [Entitic mass] 31.3 pg Normal 26.0-34.0 [facility] Comment on above: Order Comment: Speci men Type: BLOOD SPECIMENOrdering Facility: [facility] Address: [address] [place] [address] Performed By: #### 5 8410-2 ####[facility] [id number] [address] [place] MCHC (RBC) [Mass/Vol] 32.5 g/dL Normal 30.5-36.0 [facility] Comment on above: Order Comment: Speci men Type: BLOOD SPECIMENOrdering Facility: [facility] Address: [address] [place], [place] [address] Performed By: #### 5 8410-2 ####[facility] [id number] [address] [place] MCV (RBC) [Entitic vol] 96.3 fL Normal 80.0-100.0 [facility] Comment on above: Order Comment: Speci men Type: BLOOD SPECIMENOrdering Facility: [facility] Address: [address] Performed By: #### 5 8410-2 ####[facility] [id number] [place] [address] [place] Nucleated RBC (Bld) [#/Vol] 10*3/uL Normal <0.01 [facility] Comment on above: Order Comment: Speci men Type: BLOOD SPECIMENOrdering Facility: [facility] Address: [address] Performed By: #### 5 8410-2 ####[facility] [id number] [place] [address] [place] Platelet mean volume (Bld) [Entitic vol] 9.3 fL Normal 9.0-12.7 [facility] Comment on above: Order Comment: Speci men Type: BLOOD SPECIMENOrdering Facility: [facility] Address: [address] Performed By: #### 5 8410-2 ####[facility] [id number] [place] [address] [place] Platelets (Bld) [#/Vol] 195 10*3/uL Normal 150-400 [facility] Comment on above: Order Comment: Speci men Type: BLOOD SPECIMENOrdering Facility: [facility] Address: [address] Performed By: #### 5 8410-2 ####[facility] [id number] [place] [address] [place] RBC (Bld) [#/Vol] 3.77 10*6/uL Low 3.90-5.20 [facility] Comment on above: Order Comment: Speci men Type: BLOOD SPECIMENOrdering Facility: [facility] Address: [address] Performed By: #### 5 8410-2 ####[facility] [id number] [place] [address] [place] WBC (Bld) [#/Vol] 5.98 10*3/uL Normal 3.70-11.00 [facility] Comment on above: Order Comment: Speci men Type: BLOOD SPECIMENOrdering Facility: [facility] Address: [address] [place], [place] [address] Performed By: #### 5 8410-2 ####[facility] [id number] [place] [address] [place] CNDSon 01-04-2023 CNDS Normal [facility] CRP SerPl-mCncon 01-04-2023 CRP [Mass/Vol] 1.8 mg/dL High <0.9 [facility] Comment on above: Order Comment: Speci men Type: BLOOD SPECIMENOrdering Facility: [facility] Address: [address] [place], [place] [address] Performed By: #### 2 4321-2, 96826-9, 2776-07, 1987-11 ####[facility] [id number] [place] [address] [place] Magnesium SerPl-mCncon 01-04 Magnesium [Mass/Vol] 2.3 mg/dL Normal 1.7-2.[address] [facility] Comment on above: Order Comment: Speci men Type: BLOOD SPECIMENOrdering Facility: [facility] Address: [address] [place], [place] [address] Performed By: #### 2 4321-2, 64119-8, 2776-07, 1987-11 ####[facility] [id number] [place] [address] [place] Phosphate SerPl-mCncon 01-04 Phosphate [Mass/Vol] 3.6 mg/dL Normal 2.7-4.[address] [facility] Comment on above: Order Comment: Speci men Type: BLOOD SPECIMENOrdering Facility: [facility] Address: [address] [place] [address] Performed By: #### 2 4321-2, , 2776-07, 1987-11 ####[facility] [id number] [place] [id number] [place] Basic metabolic 2000 panelon 01-03-2023 Anion gap [Moles/Vol] 10 mmol/L Normal 9-18 [facility] Comment on above: Order Comment: Speci men Type: BLOOD SPECIMENOrdering Facility: [facility] Address: [address] [place] [address] Performed By: #### 1 988-5, , 2776-07, ####[facility] [id number] [place] [address] [place] Calcium [Mass/Vol] 8.6 mg/dL Normal 8.5-10.2 [facility] Comment on above: Order Comment: Speci men Type: BLOOD SPECIMENOrdering Facility: [facility] Address: [address] [place] [address] Performed By: #### 1 988-5, , 2776-07, 87954-4 ####[facility] [id number] [place] [address] [place] Chloride [Moles/Vol] 104 mmol/L Normal 97-[address] [facility] Comment on above: Order Comment: Speci men Type: BLOOD SPECIMENOrdering Facility: [facility] Address: [address] [place], [place] [address] Performed By: #### 1 988-5, , 2776-07, 63098-8 ####[facility] [id number] [place] [id number] [place] CO2 [Moles/Vol] 27 mmol/L Normal 22-30 [facility] Comment on above: Order Comment: Speci men Type: BLOOD SPECIMENOrdering Facility: [facility] Address: [address] [place] [address] Performed By: #### 1 988-5, 64297-0, 2777-1, 50862-0 ####[facility] [id number] [place] [address] [place] Creatinine [Mass/Vol] 0.69 mg/dL Normal 0.58-0.96 [facility] Comment on above: Order Comment: Speci men Type: BLOOD SPECIMENOrdering Facility: [facility] Address: [address] [place] [address] Performed By: #### 1 988-5, 63197-8, 2776-07, 94166-6 ####[facility] [id number] [address] OF [facility] ESTIMATED GLOMERULAR FILTRATION RATE 102 mL/min/1.73m??? Normal >=60 [facility] Comment on above: Order Comment: Speci men Type: BLOOD SPECIMENOrdering Facility: [facility] Address: [address] [place] [address] Result Comment: Terra mated Glomerular Filtration Rate (eGFR) is calculated using the 2020 CKD-EPI creatinine equation. This equation utilizes serum creatinine, sex, and age as parameters. The creatinine assay has traceable calibration to isotope dilution-mass spectrometry. Refer to KDIGO guidelines for clinical interpretation. In patients with unstable renal function, e.g. those with acute kidney injury, the eGFR may not accurately reflect actual GFR. Performed By: #### 1 988-5, 10276-3, 277-, 22754-6 ####[facility] [id number] [place] [id number] [place] Glucose [Mass/Vol] 88 mg/dL Normal 74-99 [facility] Comment on above: Order Comment: Speci men Type: BLOOD SPECIMENOrdering Facility: [facility] Address: [address] [place], [place] [address] Result Comment: The [place] [employer] (ADA) provides guidance for cutoff values for fasting glucose and random glucose. The ADA defines fasting as no caloric intake for at least 8 hours. Fasting plasma glucose results between 100 to 125 mg/dL indicate increased risk for diabetes (prediabetes).Fasting plasma glucose results greater than or equal to 126 mg/dL meet the criteria for diagnosis of diabetes. In the absence of unequivocal hyperglycemia, results should be confirmed by repeat testing. In a patient with classic symptoms of hyperglycemia or hyperglycemic crisis, random plasma glucose results greater than or equal to 200 mg/dL meet the criteria for diagnosis of diabetes.Reference: Standards of Medical Care in Diabetes 2016, [place] [employer]. Diabetes Care. 2016.39(Suppl 1). Performed By: #### 1 988-5, 56886-2, 2777-, 26353-7 ####[facility] [id number] [place] [address] [place] Potassium [Moles/Vol] 4.4 mmol/L Normal 3.7-5.1 [facility] Comment on above: Order Comment: Speci men Type: BLOOD SPECIMENOrdering Facility: [facility] Address: [address] [place] [address] Performed By: #### 1 988-5, 36577-8, 277-, 30119-6 ####[facility] [id number] [place] [id number] [place] Sodium [Moles/Vol] 141 mmol/L Normal 136-144 [facility] Comment on above: Order Comment: Speci men Type: BLOOD SPECIMENOrdering Facility: [facility] Address: [address] [place] [address] Performed By: #### 1 988-5, 25205-1, 277-, 88496-2 ####[facility] [id number] [place] [address] [place] Urea nitrogen [Mass/Vol] 11 mg/dL Normal 7-21 [facility] Comment on above: Order Comment: Speci men Type: BLOOD SPECIMENOrdering Facility: [facility] Address: [address] [place] [address] Performed By: #### 1 988-5, 69262-0, 2777-1, 59604-9 ####[facility] [id number] [place] [address] [place] CBC panel Auto (Bld)on 01-03 Erythrocyte distribution width (RBC) [Ratio] 12.7 % Normal 11.5-15.0 [facility] Comment on above: Order Comment: Speci men Type: BLOOD SPECIMENOrdering Facility: [facility] Address: [address] [place] [address] Performed By: #### 5 8410-2 ####[facility] [id number] [address] [place] Hematocrit (Bld) [Volume fraction] 32.5 % Low 36.0-46.0 [facility] Comment on above: Order Comment: Speci men Type: BLOOD SPECIMENOrdering Facility: [facility] Address: [address] [place] [address] Performed By: #### 5 8410-2 ####[facility] [id number] [address] [place] Hemoglobin (Bld) [Mass/Vol] 10.5 g/dL Low 11.5-15.5 [facility] Comment on above: Order Comment: Speci men Type: BLOOD SPECIMENOrdering Facility: [facility] Address: [address] [place] [address] Performed By: #### 5 8410-2 ####[facility] [id number] [place] [address] [place] MCH (RBC) [Entitic mass] 31.3 pg Normal 26.0-34.0 [facility] Comment on above: Order Comment: Speci men Type: BLOOD SPECIMENOrdering Facility: [facility] Address: [address] Performed By: #### 5 8410-2 ####[facility] [id number] [place] [address] [place] MCHC (RBC) [Mass/Vol] 32.3 g/dL Normal 30.5-36.0 [facility] Comment on above: Order Comment: Speci men Type: BLOOD SPECIMENOrdering Facility: [facility] Address: [address] Performed By: #### 5 8410-2 ####[facility] [id number] [place] [address] [place] MCV (RBC) [Entitic vol] 97.0 fL Normal 80.0-100.0 [facility] Comment on above: Order Comment: Speci men Type: BLOOD SPECIMENOrdering Facility: [facility] Address: [address] [place], [place] [address] Performed By: #### 5 8410-2 ####[facility] [id number] [place] [address] [place] Nucleated RBC (Bld) [#/Vol] 10*3/uL Normal <0.01 [facility] Comment on above: Order Comment: Speci men Type: BLOOD SPECIMENOrdering Facility: [facility] Address: [address] Performed By: #### 5 8410-2 ####[facility] [id number] [place] [address] [place] Platelet mean volume (Bld) [Entitic vol] 9.5 fL Normal 9.0-12.7 [facility] Comment on above: Order Comment: Speci men Type: BLOOD SPECIMENOrdering Facility: [facility] Address: [address] [place], [place] [address] Performed By: #### 5 8410-2 ####[facility] [id number] [place] [address] [place] Platelets (Bld) [#/Vol] 156 10*3/uL Normal 150-400 [facility] Comment on above: Order Comment: Speci men Type: BLOOD SPECIMENOrdering Facility: [facility] Address: [address] [place], [place] [address] Performed By: #### 5 8410-2 ####[facility] [id number] [place] [address] [place] RBC (Bld) [#/Vol] 3.35 10*6/uL Low 3.90-5.20 [facility] Comment on above: Order Comment: Speci men Type: BLOOD SPECIMENOrdering Facility: [facility] Address: [address] [place], [place] [address] Performed By: #### 5 8410-2 ####[facility] [id number] [place] [address] [place] WBC (Bld) [#/Vol] 5.51 10*3/uL Normal 3.70-11.00 [facility] Comment on above: Order Comment: Speci men Type: BLOOD SPECIMENOrdering Facility: [facility] Address: [address] [place] [address] Performed By: #### 5 8410-2 ####[facility] [id number] [place] [address] [place] [facility] CRP [Mass/Vol] 2.1 mg/dL High <0.9 [facility] Comment on above: Order Comment: Speci men Type: BLOOD SPECIMENOrdering Facility: [facility] Address: [address] [place], [place] [address] Performed By: #### 1 988-5, 79935-0, 2776-07, 92282-7 ####[facility] [id number] [place] [id number] [place] ECG COMPLETEon 01-03-2023 ECG COMPLETE Normal [facility] Magnesium SerPl-mCncon 01-03 Magnesium [Mass/Vol] 2.2 mg/dL Normal 1.7-2.[address] [facility] Comment on above: Order Comment: Speci men Type: BLOOD SPECIMENOrdering Facility: [facility] Address: [address] [place] [id number] Performed By: #### 1 988-5, , 2776-07, 16876-9 ####[facility] [id number] [place] [address] [place] Phosphate SerPl-mCncon 01-03 Phosphate [Mass/Vol] 3.3 mg/dL Normal 2.7-4.[address] [facility] Comment on above: Order Comment: Speci men Type: BLOOD SPECIMENOrdering Facility: [facility] Address: [address] [id number] Performed By: #### 1 988-5, , 2776-07, ####[facility] [id number] [place] [address] [place] XR ABDOMEN 1V SUPINEon 01-03 XR ABDOMEN 1V SUPINE Normal [facility] Basic metabolic 2000 panelon 01-02-2023 Anion gap [Moles/Vol] 9 mmol/L Normal 9-18 [facility] Comment on above: Order Comment: Speci men Type: BLOOD SPECIMENOrdering Facility: [facility] Address: [address] [id number] Performed By: #### 2 777-1, , 00072-8 ####[facility] [id number] [place] [address] [place] Calcium [Mass/Vol] 8.4 mg/dL Low 8.5-10.2 [facility] Comment on above: Order Comment: Speci men Type: BLOOD SPECIMENOrdering Facility: [facility] Address: [address] [place] [address] Performed By: #### 2 777-1, , 14371-8 ####[facility] [id number] [place] [address] [place] Chloride [Moles/Vol] 105 mmol/L Normal 97-[address] [facility] Comment on above: Order Comment: Speci men Type: BLOOD SPECIMENOrdering Facility: [facility] Address: [address] [place] [address] Performed By: #### 2 777-1, , ####[facility] [id number] [place] [address] [place] CO2 [Moles/Vol] 28 mmol/L Normal 22-30 [facility] Comment on above: Order Comment: Speci men Type: BLOOD SPECIMENOrdering Facility: [facility] Address: [address] [place], [place] [address] Performed By: #### 2 777-1, , 43623-1 ####[facility] [id number] [place] [address] [place] Creatinine [Mass/Vol] 0.60 mg/dL Normal 0.58-0.96 [facility] Comment on above: Order Comment: Speci men Type: BLOOD SPECIMENOrdering Facility: [facility] Address: [address] [place], [place] [address] Performed By: #### 2 777-1, , 95522-0 ####[facility] [id number] [address] [id number] [place] ESTIMATED GLOMERULAR FILTRATION RATE 105 mL/min/1.73m??? Normal >=60 [facility] Comment on above: Order Comment: Chantale cody Type: BLOOD SPECIMENOrdering Facility: [facility] Address: [address] [place], [place] [address] Result Comment: Terra mated Glomerular Filtration Rate (eGFR) is calculated using the 2020 CKD-EPI creatinine equation. This equation utilizes serum creatinine, sex, and age as parameters. The creatinine assay has traceable calibration to isotope dilution-mass spectrometry. Refer to KDIGO guidelines for clinical interpretation. In patients with unstable renal function, e.g. those with acute kidney injury, the eGFR may not accurately reflect actual GFR. Performed By: #### 2 777-1, , ####[facility] [id number] [place] [address] [place] Glucose [Mass/Vol] 92 mg/dL Normal 74-99 [facility] Comment on above: Order Comment: Chantale cody Type: BLOOD SPECIMENOrdering Facility: [facility] Address: [address] [place], [place] [address] Result Comment: The [place] [employer] (ADA) provides guidance for cutoff values for fasting glucose and random glucose. The ADA defines fasting as no caloric intake for at least 8 hours. Fasting plasma glucose results between 100 to 125 mg/dL indicate increased risk for diabetes (prediabetes).Fasting plasma glucose results greater than or equal to 126 mg/dL meet the criteria for diagnosis of diabetes. In the absence of unequivocal hyperglycemia, results should be confirmed by repeat testing. In a patient with classic symptoms of hyperglycemia or hyperglycemic crisis, random plasma glucose results greater than or equal to 200 mg/dL meet the criteria for diagnosis of diabetes.Reference: Standards of Medical Care in Diabetes 2016, [place] [employer]. Diabetes Care. 2016.39(Suppl 1). Performed By: #### 2 777-1, , ####[facility] [id number] [address] [id number] [place] Potassium [Moles/Vol] 4.2 mmol/L Normal 3.7-5.1 [facility] Comment on above: Order Comment: Speci men Type: BLOOD SPECIMENOrdering Facility: [facility] Address: [address] [address] Performed By: #### 2 777-1, , ####[facility] [id number] [place] [address] [place] Sodium [Moles/Vol] 142 mmol/L Normal 136-144 [facility] Comment on above: Order Comment: Speci men Type: BLOOD SPECIMENOrdering Facility: [facility] Address: [address] [place] [address] Performed By: #### 2 777-1, , ####[facility] [id number] [place] [address] [place] Urea nitrogen [Mass/Vol] 9 mg/dL Normal 7-21 [facility] Comment on above: Order Comment: Speci men Type: BLOOD SPECIMENOrdering Facility: [facility] Address: [address] [place] [address] Performed By: #### 2 777-1, , ####[facility] [id number] [place] [address] [place] CBC W Auto Differential pane l (Bld)on 01-02-2023 Basophils (Bld) [#/Vol] 10*3/uL Normal <0.11 [facility] Comment on above: Order Comment: Speci men Type: BLOOD SPECIMENOrdering Facility: [facility] Address: [address] [address] Performed By: #### 5 7021-8 ####[facility] [id number] [place] [address] [place] Basophils/100 WBC (Bld) 0.4 % Normal [facility] Comment on above: Order Comment: Speci men Type: BLOOD SPECIMENOrdering Facility: [facility] Address: [address] Performed By: #### 5 7021-8 ####[facility] [id number] [place] [address] [place] [facility] Differential cell count method Nom (Bld) Auto Normal [facility] Comment on above: Order Comment: Speci men Type: BLOOD SPECIMENOrdering Facility: [facility] Address: [address] Performed By: #### 5 7021-8 ####[facility] [id number] [place] [address] [place] Eosinophils (Bld) [#/Vol] 0.19 10*3/uL Normal <0.46 [facility] Comment on above: Order Comment: Speci men Type: BLOOD SPECIMENOrdering Facility: [facility] Address: [address] [place], [place] [address] Performed By: #### 5 7021-8 ####[facility] [id number] [place] [address] [place] Eosinophils/100 WBC (Bld) 4.1 % Normal [facility] Comment on above: Order Comment: Speci men Type: BLOOD SPECIMENOrdering Facility: [facility] Address: [address] [place], [place] [address] Performed By: #### 5 7021-8 ####[facility] [id number] [address] [place] Erythrocyte distribution width (RBC) [Ratio] 12.8 % Normal 11.5-15.0 [facility] Comment on above: Order Comment: Speci men Type: BLOOD SPECIMENOrdering Facility: [facility] Address: [address] [place], [place] [address] Performed By: #### 5 7021-8 ####[facility] [id number] [place] [address] [place] Hematocrit (Bld) [Volume fraction] 29.8 % Low 36.0-46.0 [facility] Comment on above: Order Comment: Speci men Type: BLOOD SPECIMENOrdering Facility: [facility] Address: [address] [place] [address] Performed By: #### 5 7021-8 ####[facility] [id number] [place] [address] [place] Hemoglobin (Bld) [Mass/Vol] 9.6 g/dL Low 11.5-15.5 [facility] Comment on above: Order Comment: Speci men Type: BLOOD SPECIMENOrdering Facility: [facility] Address: [address] [place] [address] Performed By: #### 5 7021-8 ####[facility] [id number] [place] [address] [place] Immature granulocytes (Bld) [#/Vol] 10*3/uL Normal <0.10 [facility] Comment on above: Order Comment: Speci men Type: BLOOD SPECIMENOrdering Facility: [facility] Address: [address] [place], [place] [address] Performed By: #### 5 7021-8 ####[facility] [id number] [place] [address] [place] Immature granulocytes/100 WBC (Bld) 0.4 % Normal [facility] Comment on above: Order Comment: Speci men Type: BLOOD SPECIMENOrdering Facility: [facility] Address: [address] [place], [place] [address] Performed By: #### 5 7021-8 ####[facility] [id number] [place] [address] [place] Lymphocytes (Bld) [#/Vol] 1.21 10*3/uL Normal 1.00-4.00 [facility] Comment on above: Order Comment: Speci men Type: BLOOD SPECIMENOrdering Facility: [facility] Address: [address] [address] Performed By: #### 5 7021-8 ####[facility] [id number] [address] [place] Lymphocytes/100 WBC (Bld) 26.2 % Normal [facility] Comment on above: Order Comment: Speci men Type: BLOOD SPECIMENOrdering Facility: [facility] Address: [address] Performed By: #### 5 7021-8 ####[facility] [id number] [place] [address] [place] MCH (RBC) [Entitic mass] 31.6 pg Normal 26.0-34.0 [facility] Comment on above: Order Comment: Speci men Type: BLOOD SPECIMENOrdering Facility: [facility] Address: [address] Performed By: #### 5 7021-8 ####[facility] [id number] [place] [address] [place] MCHC (RBC) [Mass/Vol] 32.2 g/dL Normal 30.5-36.0 [facility] Comment on above: Order Comment: Speci men Type: BLOOD SPECIMENOrdering Facility: [facility] Address: [address] Performed By: #### 5 7021-8 ####[facility] [id number] [place] [address] [place] MCV (RBC) [Entitic vol] 98.0 fL Normal 80.0-100.0 [facility] Comment on above: Order Comment: Speci men Type: BLOOD SPECIMENOrdering Facility: [facility] Address: [address] [place], [place] [address] Performed By: #### 5 7021-8 ####[facility] [id number] [place] [address] [place] Monocytes (Bld) [#/Vol] 0.26 10*3/uL Normal <0.87 [facility] Comment on above: Order Comment: Speci men Type: BLOOD SPECIMENOrdering Facility: [facility] Address: [address] [place] [address] Performed By: #### 5 7021-8 ####[facility] [id number] [place] [address] [place] Monocytes/100 WBC (Bld) 5.6 % Normal [facility] Comment on above: Order Comment: Speci men Type: BLOOD SPECIMENOrdering Facility: [facility] Address: [address] [place], [place] [address] Performed By: #### 5 7021-8 ####[facility] [id number] [place] [address] [place] Neutrophils (Bld) [#/Vol] 2.92 10*3/uL Normal 1.45-7.50 [facility] Comment on above: Order Comment: Speci men Type: BLOOD SPECIMENOrdering Facility: [facility] Address: [address] [place], [place] [address] Performed By: #### 5 7021-8 ####[facility] [id number] [place] [address] [place] Neutrophils/100 WBC (Bld) 63.3 % Normal [facility] Comment on above: Order Comment: Speci men Type: BLOOD SPECIMENOrdering Facility: [facility] Address: [address] [place], [place] [address] Performed By: #### 5 7021-8 ####[facility] [id number] [place] [address] [place] Nucleated RBC (Bld) [#/Vol] 10*3/uL Normal <0.01 [facility] Comment on above: Order Comment: Speci men Type: BLOOD SPECIMENOrdering Facility: [facility] Address: [address] [place], [place] [address] Performed By: #### 5 7021-8 ####[facility] [id number] [place] [address] [place] Nucleated RBC/100 WBC (Bld) [Ratio] 0.0 /100 WBC Normal [facility] Comment on above: Order Comment: Speci men Type: BLOOD SPECIMENOrdering Facility: [facility] Address: [address] [place], [place] [address] Performed By: #### 5 7021-8 ####[facility] [id number] [place] [address] [place] Platelet mean volume (Bld) [Entitic vol] 9.7 fL Normal 9.0-12.7 [facility] Comment on above: Order Comment: Speci men Type: BLOOD SPECIMENOrdering Facility: [facility] Address: [address] [place], [place] [address] Performed By: #### 5 7021-8 ####[facility] [id number] [place] [address] [place] Platelets (Bld) [#/Vol] 124 10*3/uL Low 150-400 [facility] Comment on above: Order Comment: Speci men Type: BLOOD SPECIMENOrdering Facility: [facility] Address: [address] Performed By: #### 5 7021-8 ####[facility] [id number] [place] [address] [place] RBC (Bld) [#/Vol] 3.04 10*6/uL Low 3.90-5.20 [facility] Comment on above: Order Comment: Speci men Type: BLOOD SPECIMENOrdering Facility: [facility] Address: [address] [place] [address] Performed By: #### 5 7021-8 ####[facility] [id number] [place] [address] [place] WBC (Bld) [#/Vol] 4.62 10*3/uL Normal 3.70-11.00 [facility] Comment on above: Order Comment: Speci men Type: BLOOD SPECIMENOrdering Facility: [facility] Address: [address] [place], [place] [address] Performed By: #### 5 7021-8 ####[facility] [id number] [place] [address] [place] CRP SerPl-mCncon 01-02-2023 CRP [Mass/Vol] 4.4 mg/dL High <0.9 [facility] Comment on above: Order Comment: Speci men Type: BLOOD SPECIMENOrdering Facility: [facility] Address: [address] [place], [place] [address] Performed By: #### 1 988-5 ####[facility] [id number] [place] [address] [place] Magnesium SerPl-mCncon 01-02 Magnesium [Mass/Vol] 2.2 mg/dL Normal 1.7-2.[address] [facility] Comment on above: Order Comment: Speci men Type: BLOOD SPECIMENOrdering Facility: [facility] Address: [address] [place] [address] Performed By: #### 2 777-1, 14378-7, 78033-1 ####[facility] [id number] [place] [address] [place] Phosphate SerPl-mCncon 01-02 Phosphate [Mass/Vol] 2.2 mg/dL Low 2.7-4.[address] [facility] Comment on above: Order Comment: Speci men Type: BLOOD SPECIMENOrdering Facility: [facility] Address: [address] [place] [address], [place] [address] Performed By: #### 2 777-1, , ####[facility] [id number] [address] [address] [place] THERAPY NTon 01-02-2023 THERAPY NT Normal [facility] Basic metabolic 2000 panelon 01-01-2023 Anion gap [Moles/Vol] 9 mmol/L Normal 9-18 [facility] Comment on above: Order Comment: Speci men Type: BLOOD SPECIMENOrdering Facility: [facility] Address: [address] Performed By: #### 2 4321-2, HSTNT, , 2776-07, 1987-11 ####[facility] [id number] [place] [address] [place] Calcium [Mass/Vol] 8.3 mg/dL Low 8.5-10.2 [facility] Comment on above: Order Comment: Speci men Type: BLOOD SPECIMENOrdering Facility: [facility] Address: [address] [phone] Performed By: #### 2 4321-2, HSTNT, , 2776-07, 1987-11 ####[facility] [id number] [place] [id number] [place] Chloride [Moles/Vol] 104 mmol/L Normal 97-[address] [facility] Comment on above: Order Comment: Speci men Type: BLOOD SPECIMENOrdering Facility: [facility] Address: [place] [address] Performed By: #### 2 4321-2, HSTNT, , 2776-07, 1987-11 ####[facility] [id number] [address] [place] CO2 [Moles/Vol] 27 mmol/L Normal 22-30 [facility] Comment on above: Order Comment: Speci men Type: BLOOD SPECIMENOrdering Facility: [facility] Address: [address] [place] [address] Performed By: #### 2 4321-2, HSTNT, , 2776-07, 1987-11 ####[facility] [id number] [place] [address] [place] Creatinine [Mass/Vol] 0.60 mg/dL Normal 0.58-0.96 [facility] Comment on above: Order Comment: Speci men Type: BLOOD SPECIMENOrdering Facility: [facility] Address: [address] [place] [address] Performed By: #### 2 4321-2, HSTNT, , 2776-07, 1987-11 ####[facility] [id number] [address] STATES OF [facility] ESTIMATED GLOMERULAR FILTRATION RATE 105 mL/min/1.73m??? Normal >=60 [facility] Comment on above: Order Comment: Speci men Type: BLOOD SPECIMENOrdering Facility: [facility] Address: [address] [place] [address] Result Comment: Terra mated Glomerular Filtration Rate (eGFR) is calculated using the 2020 CKD-EPI creatinine equation. This equation utilizes serum creatinine, sex, and age as parameters. The creatinine assay has traceable calibration to isotope dilution-mass spectrometry. Refer to KDIGO guidelines for clinical interpretation. In patients with unstable renal function, e.g. those with acute kidney injury, the eGFR may not accurately reflect actual GFR. Performed By: #### 2 4321-2, HSTNT, , 2776-07, 1987-11 ####[facility] [id number] [place] [address] [place] Glucose [Mass/Vol] 108 mg/dL High 74-99 [facility] Comment on above: Order Comment: Speci men Type: BLOOD SPECIMENOrdering Facility: [facility] Address: [address] [place] [id number] Result Comment: The [place] [employer] (ADA) provides guidance for cutoff values for fasting glucose and random glucose. The ADA defines fasting as no caloric intake for at least 8 hours. Fasting plasma glucose results between 100 to 125 mg/dL indicate increased risk for diabetes (prediabetes).Fasting plasma glucose results greater than or equal to 126 mg/dL meet the criteria for diagnosis of diabetes. In the absence of unequivocal hyperglycemia, results should be confirmed by repeat testing. In a patient with classic symptoms of hyperglycemia or hyperglycemic crisis, random plasma glucose results greater than or equal to 200 mg/dL meet the criteria for diagnosis of diabetes.Reference: Standards of Medical Care in Diabetes 2016, [place] [employer]. Diabetes Care. 2016.39(Suppl 1). Performed By: #### 2 4321-2, HSTNT, , 2776-07, 1987-11 ####[facility] [id number] [place] [address] [place] Potassium [Moles/Vol] 4.4 mmol/L Normal 3.7-5.1 [facility] Comment on above: Order Comment: Speci men Type: BLOOD SPECIMENOrdering Facility: [facility] Address: [address] [place] [address] Performed By: #### 2 4321-2, HSTNT, , 2776-07, 1987-11 ####[facility] [id number] [place] [id number] [place] Sodium [Moles/Vol] 140 mmol/L Normal 136-144 [facility] Comment on above: Order Comment: Speci men Type: BLOOD SPECIMENOrdering Facility: [facility] Address: [address] [place] [address] Performed By: #### 2 4321-2, HSTNT, , 2776-07, 1987-11 ####[facility] [id number] [address] [address] [place] Urea nitrogen [Mass/Vol] 9 mg/dL Normal 7-21 [facility] Comment on above: Order Comment: Speci men Type: BLOOD SPECIMENOrdering Facility: [facility] Address: [address] [place] [address] Performed By: #### 2 4321-2, HSTNT, 50846-1, 2777-1, 1988- ####[facility] [id number] [address] [place] OF [facility] CBC W Auto Differential pane l (Bld)on 01-01-2023 Basophils (Bld) [#/Vol] 10*3/uL Normal <0.11 [facility] Comment on above: Order Comment: Speci men Type: BLOOD SPECIMENOrdering Facility: [facility] Address: [address] [place] [address] Performed By: #### 5 7021-8 ####[facility] [id number] [place] [address] [place] Basophils/100 WBC (Bld) 0.4 % Normal [facility] Comment on above: Order Comment: Speci men Type: BLOOD SPECIMENOrdering Facility: [facility] Address: [address] [place] [address] Performed By: #### 5 7021-8 ####[facility] [id number] [address] [place] Differential cell count method Nom (Bld) Auto Normal [facility] Comment on above: Order Comment: Speci men Type: BLOOD SPECIMENOrdering Facility: [facility] Address: [address] [place], [place] [address] Performed By: #### 5 7021-8 ####[facility] [id number] [place] [address] [place] Eosinophils (Bld) [#/Vol] 0.22 10*3/uL Normal <0.46 [facility] Comment on above: Order Comment: Speci men Type: BLOOD SPECIMENOrdering Facility: [facility] Address: [address] [address] Performed By: #### 5 7021-8 ####[facility] [id number] [place] [address] [place] Eosinophils/100 WBC (Bld) 4.3 % Normal [facility] Comment on above: Order Comment: Speci men Type: BLOOD SPECIMENOrdering Facility: [facility] Address: [address] Performed By: #### 5 7021-8 ####[facility] [id number] [place] [address] [place] Erythrocyte distribution width (RBC) [Ratio] 12.7 % Normal 11.5-15.0 [facility] Comment on above: Order Comment: Speci men Type: BLOOD SPECIMENOrdering Facility: [facility] Address: [address] Performed By: #### 5 7021-8 ####[facility] [id number] [place] [address] [place] Hematocrit (Bld) [Volume fraction] 29.0 % Low 36.0-46.0 [facility] Comment on above: Order Comment: Speci men Type: BLOOD SPECIMENOrdering Facility: [facility] Address: [address] Performed By: #### 5 7021-8 ####[facility] [id number] [place] [address] [place] Hemoglobin (Bld) [Mass/Vol] 9.4 g/dL Low 11.5-15.5 [facility] Comment on above: Order Comment: Speci men Type: BLOOD SPECIMENOrdering Facility: [facility] Address: [address] Performed By: #### 5 7021-8 ####[facility] LABCL[facility] [id number] [place] [address] [place] Immature granulocytes (Bld) [#/Vol] 10*3/uL Normal <0.10 [facility] Comment on above: Order Comment: Speci men Type: BLOOD SPECIMENOrdering Facility: [facility] Address: [address] [place] [address] Performed By: #### 5 7021-8 ####[facility] LABCL[facility] [id number] [address] [place] Immature granulocytes/100 WBC (Bld) 0.4 % Normal [facility] Comment on above: Order Comment: Speci men Type: BLOOD SPECIMENOrdering Facility: [facility] Address: [address] [place] [address] Performed By: #### 5 7021-8 ####[facility] [id number] [place] [address] [place] Lymphocytes (Bld) [#/Vol] 1.12 10*3/uL Normal 1.00-4.00 [facility] Comment on above: Order Comment: Speci men Type: BLOOD SPECIMENOrdering Facility: [facility] Address: [address] [place] [address] Performed By: #### 5 7021-8 ####[facility]CL[facility] [id number] [address] [place] Lymphocytes/100 WBC (Bld) 22.0 % Normal [facility] Comment on above: Order Comment: Speci men Type: BLOOD SPECIMENOrdering Facility: [facility] Address: [address] [place], [place] [address] Performed By: #### 5 7021-8 ####[facility]CL[facility] [id number] [place] [address] [place] MCH (RBC) [Entitic mass] 31.2 pg Normal 26.0-34.0 [facility] Comment on above: Order Comment: Speci men Type: BLOOD SPECIMENOrdering Facility: [facility] Address: [address] Performed By: #### 5 7021-8 ####[facility]CL[facility] [id number] [place] [address] [place] MCHC (RBC) [Mass/Vol] 32.4 g/dL Normal 30.5-36.0 [facility] Comment on above: Order Comment: Speci men Type: BLOOD SPECIMENOrdering Facility: [facility] Address: [address] [place], [place] [address] Performed By: #### 5 7021-8 ####[facility] [id number] [place] [address] [place] MCV (RBC) [Entitic vol] 96.3 fL Normal 80.0-100.0 [facility] Comment on above: Order Comment: Speci men Type: BLOOD SPECIMENOrdering Facility: [facility] Address: [address] [place], [place] [address] Performed By: #### 5 7021-8 ####[facility] [id number] [place] [address] [place] Monocytes (Bld) [#/Vol] 0.37 10*3/uL Normal <0.87 [facility] Comment on above: Order Comment: Speci men Type: BLOOD SPECIMENOrdering Facility: [facility] Address: [address] Performed By: #### 5 7021-8 ####[facility] [id number] [address] [place] Monocytes/100 WBC (Bld) 7.3 % Normal [facility] Comment on above: Order Comment: Speci men Type: BLOOD SPECIMENOrdering Facility: [facility] Address: [address] Performed By: #### 5 7021-8 ####[facility] LABCL[facility] [id number] [place] [address] [place] Neutrophils (Bld) [#/Vol] 3.34 10*3/uL Normal 1.45-7.50 [facility] Comment on above: Order Comment: Speci men Type: BLOOD SPECIMENOrdering Facility: [facility] Address: [address] Performed By: #### 5 7021-8 ####[facility]CL[facility] [id number] [place] [address] [place] Neutrophils/100 WBC (Bld) 65.6 % Normal [facility] Comment on above: Order Comment: Speci men Type: BLOOD SPECIMENOrdering Facility: [facility] Address: [address] [place], [place] [address] Performed By: #### 5 7021-8 ####[facility]CL[facility] [id number] [place] [address] [place] Nucleated RBC (Bld) [#/Vol] 10*3/uL Normal <0.01 [facility] Comment on above: Order Comment: Speci men Type: BLOOD SPECIMENOrdering Facility: [facility] Address: [address] [place], [place] [address] Performed By: #### 5 7021-8 ####[facility]CL[facility] [id number] [place] [address] [place] Nucleated RBC/100 WBC (Bld) [Ratio] 0.0 /100 WBC Normal [facility] Comment on above: Order Comment: Speci men Type: BLOOD SPECIMENOrdering Facility: [facility] Address: [address] [place], [place] [address] Performed By: #### 5 7021-8 ####[facility] LABCL[facility] [id number] [place] [address] [place] Platelet mean volume (Bld) [Entitic vol] 9.9 fL Normal 9.0-12.7 [facility] Comment on above: Order Comment: Speci men Type: BLOOD SPECIMENOrdering Facility: [facility] Address: [address] [place], [place] [address] Performed By: #### 5 7021-8 ####[facility]CL[facility] [id number] [place] [address] [place] Platelets (Bld) [#/Vol] 121 10*3/uL Low 150-400 [facility] Comment on above: Order Comment: Speci men Type: BLOOD SPECIMENOrdering Facility: [facility] Address: [address] [place], [place] [address] Performed By: #### 5 7021-8 ####[facility]CL[facility] [id number] [place] [address] [place] RBC (Bld) [#/Vol] 3.01 10*6/uL Low 3.90-5.20 [facility] Comment on above: Order Comment: Speci men Type: BLOOD SPECIMENOrdering Facility: [facility] Address: [address] [place], [place] [address] Performed By: #### 5 7021-8 ####[facility]CL[facility] [id number] [place] [address] [place] WBC (Bld) [#/Vol] 5.09 10*3/uL Normal 3.70-11.00 [facility] Comment on above: Order Comment: Speci men Type: BLOOD SPECIMENOrdering Facility: [facility] Address: [address] [place], [place] [address] Performed By: #### 5 7021-8 ####[facility]CL[facility] [id number] [place] [address] [place] CRP SerPl-mCncon 01-01-2023 CRP [Mass/Vol] 5.1 mg/dL High <0.9 [facility] Comment on above: Order Comment: Chantale cody Type: BLOOD SPECIMENOrdering Facility: [facility] Address: [address] [place], [place] [address] Performed By: #### 2 4321-2, HSTNT, , 1987-11 ####[facility] LABCLIA [id number] [place] [address] [place] ECG COMPLETEon 01-01-2023 ECG COMPLETE Normal [facility] HIGH SENSITIVITY TROPONIN To n 01-01-2023 HIGH SENSITIVITY JAKY 9 ng/L Normal <[address] [facility] Comment on above: Order Comment: Chantale cody Type: BLOOD SPECIMENOrdering Facility: [facility] Address: [address] [place] [address] Result Comment: When assessing risk for acute coronary syndromes: In patients undergoing blood draw greater than or equal to 2 hours from symptom onset, with history of very low to moderate risk and non-ischemic ECG, an initial hs-Troponin T less than 12 ng/L AND a 1 hour delta hs-Troponin T less than 3 ng/L should be considered very low risk for 30 day MACE. Performed By: #### 2 4320-2, HSTNT, , 1987-11 ####[facility] LABCLIA [id number] [address] [address] [place] Magnesium SerPl-mCncon 01-01 Magnesium [Mass/Vol] 2.1 mg/dL Normal 1.7-2.[address] [facility] Comment on above: Order Comment: Chantale cody Type: BLOOD SPECIMENOrdering Facility: [facility] Address: [address] [place], [place] [address] Performed By: #### 2 4321-2, HSTNT, , 1987-11 ####[facility] LABCLIA [id number] [place] [id number] [place] Phosphate SerPl-mCncon 01-01 Phosphate [Mass/Vol] 2.7 mg/dL Normal 2.7-4.[address] [facility] Comment on above: Order Comment: Speci men Type: BLOOD SPECIMENOrdering Facility: [facility] Address: [address] [place] [address] Performed By: #### 2 4321-2, HSTNT, , 2776-07, 1987-11 ####[facility] LABCL[facility] [id number] [place] [address] [place] Basic metabolic 2000 panelon 12-31-2022 Anion gap [Moles/Vol] 8 mmol/L Low 9-18 [facility] Comment on above: Order Comment: Speci men Type: BLOOD SPECIMENOrdering Facility: [facility] Address: [address] [place] [address] Performed By: #### H STNT, , , 1987-11, 2776-07 ####[facility]CL[facility] [id number] [place] [address] [place] Calcium [Mass/Vol] 8.6 mg/dL Normal 8.5-10.2 [facility] Comment on above: Order Comment: Speci men Type: BLOOD SPECIMENOrdering Facility: [facility] Address: [address] [place] [address] Performed By: #### H STNT, , , 1987-11, 2776-07 ####[facility] LABCLIA [id number] [place] [address] [place] Chloride [Moles/Vol] 106 mmol/L High 97-[address] [facility] Comment on above: Order Comment: Speci men Type: BLOOD SPECIMENOrdering Facility: [facility] Address: [address] [place] [address] Performed By: #### H STNT, , , 1987-11, 2776-07 ####[facility]CL[facility] [id number] [place] [address] [place] CO2 [Moles/Vol] 26 mmol/L Normal 22-30 [facility] Comment on above: Order Comment: Speci men Type: BLOOD SPECIMENOrdering Facility: [facility] Address: [address] [place] [address] Performed By: #### H STNT, , , 1987-11, 2776-07 ####[facility] LABCLIA [id number] [place] [address] [place] Creatinine [Mass/Vol] 0.79 mg/dL Normal 0.58-0.96 [facility] Comment on above: Order Comment: Speci men Type: BLOOD SPECIMENOrdering Facility: [facility] Address: [address] [place] [address] Performed By: #### H STNT, , , 1987-11, 2776-07 ####[facility] [id number] [place] [address] [place] ESTIMATED GLOMERULAR FILTRATION RATE 88 mL/min/1.73m??? Normal >=60 [facility] Comment on above: Order Comment: Speci men Type: BLOOD SPECIMENOrdering Facility: [facility] Address: [address] [place] [address] Result Comment: Terra mated Glomerular Filtration Rate (eGFR) is calculated using the 2020 CKD-EPI creatinine equation. This equation utilizes serum creatinine, sex, and age as parameters. The creatinine assay has traceable calibration to isotope dilution-mass spectrometry. Refer to KDIGO guidelines for clinical interpretation. In patients with unstable renal function, e.g. those with acute kidney injury, the eGFR may not accurately reflect actual GFR. Performed By: #### H STNT, , , 1987-11, 2776-07 ####[facility] LABCLIA [id number] [place] [address] [place] Glucose [Mass/Vol] 111 mg/dL High 74-99 [facility] Comment on above: Order Comment: Speci men Type: BLOOD SPECIMENOrdering Facility: [facility] Address: [address] [place] [address] Result Comment: The [place] [employer] (ADA) provides guidance for cutoff values for fasting glucose and random glucose. The ADA defines fasting as no caloric intake for at least 8 hours. Fasting plasma glucose results between 100 to 125 mg/dL indicate increased risk for diabetes (prediabetes).Fasting plasma glucose results greater than or equal to 126 mg/dL meet the criteria for diagnosis of diabetes. In the absence of unequivocal hyperglycemia, results should be confirmed by repeat testing. In a patient with classic symptoms of hyperglycemia or hyperglycemic crisis, random plasma glucose results greater than or equal to 200 mg/dL meet the criteria for diagnosis of diabetes.Reference: Standards of Medical Care in Diabetes 2016, [place] [employer]. Diabetes Care. 2016.39(Suppl 1). Performed By: #### H STNT, , , 2776-07 ####[facility]CL[facility] [id number] [place] [address] [place] Potassium [Moles/Vol] 4.9 mmol/L Normal 3.7-5.1 [facility] Comment on above: Order Comment: Speci men Type: BLOOD SPECIMENOrdering Facility: [facility] Address: [address] [place], [place] [address] Performed By: #### H STNT, , , 2776-07 ####[facility] [id number] [place] [address] [place] Sodium [Moles/Vol] 140 mmol/L Normal 136-144 [facility] Comment on above: Order Comment: Speci men Type: BLOOD SPECIMENOrdering Facility: [facility] Address: [address] [place], [place] [address] Performed By: #### H STNT, , , 2776-07 ####[facility]CL[facility] [id number] [place] [address] [place] Urea nitrogen [Mass/Vol] 15 mg/dL Normal 7-21 [facility] Comment on above: Order Comment: Speci men Type: BLOOD SPECIMENOrdering Facility: [facility] Address: [address] [place] [address] Performed By: #### H STNT, 47380-3, 53212-2, 1987-11, 2776-07 ####[facility]CL[facility] [id number] [place] [address] [place] CASE MGT INIT ASSESon 2022 CASE MGT INIT ASSES Normal [facility] CBC W Auto Differential pane l (Bld)on 12-31-2022 Basophils (Bld) [#/Vol] 0.04 10*3/uL Normal <0.11 [facility] Comment on above: Order Comment: Speci men Type: BLOOD SPECIMENOrdering Facility: [facility] Address: [address] [place], [place] [address] Performed By: #### 5 7021-8 ####[facility]CL[facility] [id number] [place] [address] [place] Basophils/100 WBC (Bld) 0.5 % Normal [facility] Comment on above: Order Comment: Speci men Type: BLOOD SPECIMENOrdering Facility: [facility] Address: [address] [place], [place] [address] Performed By: #### 5 7021-8 ####[facility]CL[facility] [id number] [place] [address] [place] Differential cell count method Nom (Bld) Auto Normal [facility] Comment on above: Order Comment: Speci men Type: BLOOD SPECIMENOrdering Facility: [facility] Address: [address] [place], [place] [address] Performed By: #### 5 7021-8 ####[facility]CL[facility] [id number] [place] [address] [place] Eosinophils (Bld) [#/Vol] 0.11 10*3/uL Normal <0.46 [facility] Comment on above: Order Comment: Speci men Type: BLOOD SPECIMENOrdering Facility: [facility] Address: [address] [place] [address] Performed By: #### 5 7021-8 ####[facility]CLIA [id number] [place] [address] [place] Eosinophils/100 WBC (Bld) 1.5 % Normal [facility] Comment on above: Order Comment: Speci men Type: BLOOD SPECIMENOrdering Facility: [facility] Address: [address] [place] [address] Performed By: #### 5 7021-8 ####[facility] [id number] [place] [address] [place] Erythrocyte distribution width (RBC) [Ratio] 12.9 % Normal 11.5-15.0 [facility] Comment on above: Order Comment: Speci men Type: BLOOD SPECIMENOrdering Facility: [facility] Address: [address] [place], [place] [address] Performed By: #### 5 7021-8 ####[facility] [id number] [place] [address] [place] Hematocrit (Bld) [Volume fraction] 33.7 % Low 36.0-46.0 [facility] Comment on above: Order Comment: Speci men Type: BLOOD SPECIMENOrdering Facility: [facility] Address: [address] [place], [place] [address] Performed By: #### 5 7021-8 ####[facility]CL[facility] [id number] [place] [address] [place] Hemoglobin (Bld) [Mass/Vol] 10.9 g/dL Low 11.5-15.5 [facility] Comment on above: Order Comment: Speci men Type: BLOOD SPECIMENOrdering Facility: [facility] Address: [address] Performed By: #### 5 7021-8 ####[facility]CL[facility] [id number] [place] [address] [place] Immature granulocytes (Bld) [#/Vol] 10*3/uL Normal <0.10 [facility] Comment on above: Order Comment: Speci men Type: BLOOD SPECIMENOrdering Facility: [facility] Address: [address] Performed By: #### 5 7021-8 ####[facility]CL[facility] [id number] [place] [address] [place] Immature granulocytes/100 WBC (Bld) 0.3 % Normal [facility] Comment on above: Order Comment: Speci men Type: BLOOD SPECIMENOrdering Facility: [facility] Address: [address] Performed By: #### 5 7021-8 ####[facility]CL[facility] [id number] [place] [address] [place] Lymphocytes (Bld) [#/Vol] 1.45 10*3/uL Normal 1.00-4.00 [facility] Comment on above: Order Comment: Speci men Type: BLOOD SPECIMENOrdering Facility: [facility] Address: [address] Performed By: #### 5 7021-8 ####[facility]CL[facility] [id number] [place] [address] [place] Lymphocytes/100 WBC (Bld) 19.3 % Normal [facility] Comment on above: Order Comment: Speci men Type: BLOOD SPECIMENOrdering Facility: [facility] Address: [address] Performed By: #### 5 7021-8 ####[facility] [id number] [address] MCH (RBC) [Entitic mass] 31.6 pg Normal 26.0-34.0 [facility] Comment on above: Order Comment: Speci men Type: BLOOD SPECIMENOrdering Facility: [facility] Address: [address] [place], [place] [address] Performed By: #### 5 7021-8 ####[facility] [id number] [address] [place] MCHC (RBC) [Mass/Vol] 32.3 g/dL Normal 30.5-36.0 [facility] Comment on above: Order Comment: Speci men Type: BLOOD SPECIMENOrdering Facility: [facility] Address: [address] [place], [place] [address] Performed By: #### 5 7021-8 ####[facility] [id number] [place] [address] [place] MCV (RBC) [Entitic vol] 97.7 fL Normal 80.0-100.0 [facility] Comment on above: Order Comment: Speci men Type: BLOOD SPECIMENOrdering Facility: [facility] Address: [address] [place], [place] [address] Performed By: #### 5 7021-8 ####[facility] [id number] [address] [place] Monocytes (Bld) [#/Vol] 0.65 10*3/uL Normal <0.87 [facility] Comment on above: Order Comment: Speci men Type: BLOOD SPECIMENOrdering Facility: [facility] Address: [address] [place], [place] [address] Performed By: #### 5 7021-8 ####[facility] [id number] [place] [address] [place] Monocytes/100 WBC (Bld) 8.7 % Normal [facility] Comment on above: Order Comment: Speci men Type: BLOOD SPECIMENOrdering Facility: [facility] Address: [address] [place] [address] Performed By: #### 5 7021-8 ####[facility]CL[facility] [id number] [place] [address] [place] Neutrophils (Bld) [#/Vol] 5.23 10*3/uL Normal 1.45-7.50 [facility] Comment on above: Order Comment: Speci men Type: BLOOD SPECIMENOrdering Facility: [facility] Address: [address] [place] [address] Performed By: #### 5 7021-8 ####[facility]CL[facility] [id number] [place] [address] [place] Neutrophils/100 WBC (Bld) 69.7 % Normal [facility] Comment on above: Order Comment: Speci men Type: BLOOD SPECIMENOrdering Facility: [facility] Address: [address] [place], [place] [address] Performed By: #### 5 7021-8 ####[facility]CL[facility] [id number] [place] [address] [place] Nucleated RBC (Bld) [#/Vol] 10*3/uL Normal <0.01 [facility] Comment on above: Order Comment: Speci men Type: BLOOD SPECIMENOrdering Facility: [facility] Address: [address] [place], [place] [address] Performed By: #### 5 7021-8 ####[facility]CL[facility] [id number] [place] [address] [place] Nucleated RBC/100 WBC (Bld) [Ratio] 0.0 /100 WBC Normal [facility] Comment on above: Order Comment: Speci men Type: BLOOD SPECIMENOrdering Facility: [facility] Address: [address] Performed By: #### 5 7021-8 ####[facility] [id number] [place] [address] [place] Platelet mean volume (Bld) [Entitic vol] 10.1 fL Normal 9.0-12.7 [facility] Comment on above: Order Comment: Speci men Type: BLOOD SPECIMENOrdering Facility: [facility] Address: [address] [place], [place] [address] Performed By: #### 5 7021-8 ####[facility] [id number] [place] [address] [place] Platelets (Bld) [#/Vol] 161 10*3/uL Normal 150-400 [facility] Comment on above: Order Comment: Speci men Type: BLOOD SPECIMENOrdering Facility: [facility] Address: [address] [place], [place] [address] Performed By: #### 5 7021-8 ####[facility] [id number] [place] [address] [place] RBC (Bld) [#/Vol] 3.45 10*6/uL Low 3.90-5.20 [facility] Comment on above: Order Comment: Speci men Type: BLOOD SPECIMENOrdering Facility: [facility] Address: [address] [place] [address] Performed By: #### 5 7021-8 ####[facility] [id number] [place] [address] [place] WBC (Bld) [#/Vol] 7.50 10*3/uL Normal 3.70-11.00 [facility] Comment on above: Order Comment: Speci men Type: BLOOD SPECIMENOrdering Facility: [facility] Address: [address] [place], [place] [address] Performed By: #### 5 7021-8 ####[facility]CL[facility] [id number] [place] [address] [place] CRP SerPl-mCncon 12-31-2022 CRP [Mass/Vol] 3.2 mg/dL High <0.9 [facility] Comment on above: Order Comment: Speci men Type: BLOOD SPECIMENOrdering Facility: [facility] [facility] Address: [address] [place] [address] Performed By: #### H STNT, , , 1986-11, 2776-07 ####[facility] LABCLIA [id number] [place] [address] [place] HIGH SENSITIVITY TROPONIN To n 12-31-2022 HIGH SENSITIVITY JAKY 12 ng/L High <[address] [facility] Comment on above: Order Comment: Speci men Type: BLOOD SPECIMENOrdering Facility: [facility] Address: [address] [place] [address] Result Comment: When assessing risk for acute coronary syndromes: In patients undergoing blood draw greater than or equal to 2 hours from symptom onset, with history of very low to moderate risk and non-ischemic ECG, an initial hs-Troponin T less than 12 ng/L AND a 1 hour delta hs-Troponin T less than 3 ng/L should be considered very low risk for 30 day MACE. Performed By: #### H STNT, , , 1986-11, 2776-07 ####[facility] LABCLIA [id number] [place] [address] [place] Magnesium SerPl-mCncon 12-31 Magnesium [Mass/Vol] 1.7 mg/dL Normal 1.7-2.[address] [facility] Comment on above: Order Comment: Speci men Type: BLOOD SPECIMENOrdering Facility: [facility] Address: [address] [place] [address] Performed By: #### H STNT, , , 1986-11, 2776-07 ####[facility] LABCLIA [id number] [address] [address] [place] NURSING PROGon 12-31-2022 NURSING PROG Normal [facility] NURSING PROG Normal [facility] PT EDon 12-31-2022 PT ED Normal [facility] Phosphate SerPl-mCncon 12-31 Phosphate [Mass/Vol] 4.7 mg/dL Normal 2.7-4.8 [facility] Comment on above: Order Comment: Speci men Type: BLOOD SPECIMENOrdering Facility: [facility] Address: [address] [place] [address] Performed By: #### H STNT, 55551-4, 30633-2, 1986-, 2777-1 ####[facility] LABCLIA [id number] [place] [address] [place] THERAPY NTon 12-31-2022 THERAPY NT Normal [facility] ANES POSTPROC EVALon 023 ANES POSTPROC EVAL Normal [facility] ANES PRE-OPon 12-30-2022 ANES PRE-OP Normal [facility] BRIEF OP NOTon 12-30-2022 BRIEF OP NOT Normal [facility] OPERATIVE NOon 12-30-2022 OPERATIVE NO Normal [facility] CBC W Auto Differential pane l (Bld)on 12-16-2022 Basophils (Bld) [#/Vol] 0.04 10*3/uL Normal <0.11 [facility] Comment on above: Order Comment: Speci men Type: BLOOD SPECIMENOrdering Facility: [facility] Address: [address] [place] [address] Performed By: #### 5 7021-8 ####[facility] LABCLIA [id number] [address] [address] [place] Basophils/100 WBC (Bld) 0.5 % Normal [facility] Comment on above: Order Comment: Speci men Type: BLOOD SPECIMENOrdering Facility: [facility] Address: [address] Performed By: #### 5 7021-8 ####[facility] LABCLIA [id number] [place] [address] [place] [facility] Differential cell count method Nom (Bld) Auto Normal [facility] Comment on above: Order Comment: Speci men Type: BLOOD SPECIMENOrdering Facility: [facility] Address: [address] Performed By: #### 5 7021-8 ####[facility] LABCLIA [id number] [place] [address] [place] Eosinophils (Bld) [#/Vol] 0.07 10*3/uL Normal <0.46 [facility] Comment on above: Order Comment: Speci men Type: BLOOD SPECIMENOrdering Facility: [facility] Address: [address] [place], [place] [address] Performed By: #### 5 7021-8 ####[facility] LABIA [id number] [address] [place] [facility] Eosinophils/100 WBC (Bld) 0.8 % Normal [facility] Comment on above: Order Comment: Speci men Type: BLOOD SPECIMENOrdering Facility: [facility] Address: [address] [place], [place] [address] Performed By: #### 5 7021-8 ####[facility] LABIA [id number] [place] [address] [place] Erythrocyte distribution width (RBC) [Ratio] 12.9 % Normal 11.5-15.0 [facility] Comment on above: Order Comment: Speci men Type: BLOOD SPECIMENOrdering Facility: [facility] Address: [address] [place], [place] [address] Performed By: #### 5 7021-8 ####[facility] LABCLIA [id number] [address] [place] Hematocrit (Bld) [Volume fraction] 41.9 % Normal 36.0-46.0 [facility] Comment on above: Order Comment: Speci men Type: BLOOD SPECIMENOrdering Facility: [facility] Address: [address] [place] [address] Performed By: #### 5 7021-8 ####[facility] LABCLIA [id number] [place] [address] [place] Hemoglobin (Bld) [Mass/Vol] 13.1 g/dL Normal 11.5-15.5 [facility] Comment on above: Order Comment: Speci men Type: BLOOD SPECIMENOrdering Facility: [facility] Address: [address] [place] [address] Performed By: #### 5 7021-8 ####[facility] LABCLIA [id number] [address] [place] Immature granulocytes (Bld) [#/Vol] 0.03 10*3/uL Normal <0.10 [facility] Comment on above: Order Comment: Speci men Type: BLOOD SPECIMENOrdering Facility: [facility] Address: [address] [place] [address] Performed By: #### 5 7021-8 ####[facility] LABCLIA [id number] [place] [address] [place] Immature granulocytes/100 WBC (Bld) 0.4 % Normal [facility] Comment on above: Order Comment: Speci men Type: BLOOD SPECIMENOrdering Facility: [facility] Address: [address] [place], [place] [address] Performed By: #### 5 7021-8 ####[facility] LABCLIA [id number] [place] [address] [place] Lymphocytes (Bld) [#/Vol] 2.29 10*3/uL Normal 1.00-4.00 [facility] Comment on above: Order Comment: Speci men Type: BLOOD SPECIMENOrdering Facility: [facility] Address: [address] Performed By: #### 5 7021-8 ####[facility] LABIA [id number] [address] [place] [facility] Lymphocytes/100 WBC (Bld) 27.1 % Normal [facility] Comment on above: Order Comment: Speci men Type: BLOOD SPECIMENOrdering Facility: [facility] Address: [address] Performed By: #### 5 7021-8 ####[facility] [id number] [place] [address] [place] MCH (RBC) [Entitic mass] 31.2 pg Normal 26.0-34.0 [facility] Comment on above: Order Comment: Speci men Type: BLOOD SPECIMENOrdering Facility: [facility] Address: [address] Performed By: #### 5 7021-8 ####[facility] [id number] [address] [place] MCHC (RBC) [Mass/Vol] 31.3 g/dL Normal 30.5-36.0 [facility] Comment on above: Order Comment: Speci men Type: BLOOD SPECIMENOrdering Facility: [facility] Address: [address] [place] [address] Performed By: #### 5 7021-8 ####[facility] LABIA [id number] [place] [address] [place] MCV (RBC) [Entitic vol] 99.8 fL Normal 80.0-100.0 [facility] Comment on above: Order Comment: Speci men Type: BLOOD SPECIMENOrdering Facility: [facility] Address: [address] Performed By: #### 5 7021-8 ####[facility] LABCLIA [id number] [place] [address] [place] Monocytes (Bld) [#/Vol] 0.37 10*3/uL Normal <0.87 [facility] Comment on above: Order Comment: Speci men Type: BLOOD SPECIMENOrdering Facility: [facility] Address: [address] [place], [place] [address] Performed By: #### 5 7021-8 ####[facility] LABCLIA [id number] [place] [address] [place] Monocytes/100 WBC (Bld) 4.4 % Normal [facility] Comment on above: Order Comment: Speci men Type: BLOOD SPECIMENOrdering Facility: [facility] Address: [address] [place], [place] [address] Performed By: #### 5 7021-8 ####[facility] LABCLIA [id number] [place] [address] [place] Neutrophils (Bld) [#/Vol] 5.65 10*3/uL Normal 1.45-7.50 [facility] Comment on above: Order Comment: Speci men Type: BLOOD SPECIMENOrdering Facility: [facility] Address: [address] [place], [place] [address] Performed By: #### 5 7021-8 ####[facility] LABCLIA [id number] [place] [address] [place] Neutrophils/100 WBC (Bld) 66.8 % Normal [facility] Comment on above: Order Comment: Speci men Type: BLOOD SPECIMENOrdering Facility: [facility] Address: [address] [place], [place] [address] Performed By: #### 5 7021-8 ####[facility] LABCLIA [id number] [place] [address] [place] Nucleated RBC (Bld) [#/Vol] 10*3/uL Normal <0.01 [facility] Comment on above: Order Comment: Speci men Type: BLOOD SPECIMENOrdering Facility: [facility] Address: [address] [place] [address] Performed By: #### 5 7021-8 ####[facility] LABIA [id number] [place] [address] [place] Nucleated RBC/100 WBC (Bld) [Ratio] 0.0 /100 WBC Normal [facility] Comment on above: Order Comment: Speci men Type: BLOOD SPECIMENOrdering Facility: [facility] Address: [address] Performed By: #### 5 7021-8 ####[facility] [id number] [place] [address] [place] Platelet mean volume (Bld) [Entitic vol] 9.7 fL Normal 9.0-12.7 [facility] Comment on above: Order Comment: Speci men Type: BLOOD SPECIMENOrdering Facility: [facility] Address: [address] [place] [address] Performed By: #### 5 7021-8 ####[facility] [id number] [place] [address] [place] Platelets (Bld) [#/Vol] 226 10*3/uL Normal 150-400 [facility] Comment on above: Order Comment: Speci men Type: BLOOD SPECIMENOrdering Facility: [facility] Address: [address] [place] [address] Performed By: #### 5 7021-8 ####[facility] LABIA [id number] [place] [address] [place] RBC (Bld) [#/Vol] 4.20 10*6/uL Normal 3.90-5.20 [facility] Comment on above: Order Comment: Speci men Type: BLOOD SPECIMENOrdering Facility: [facility] Address: [address] [place], [place] [address] Performed By: #### 5 7021-8 ####[facility] LABCLIA [id number] [place] [address] [place] WBC (Bld) [#/Vol] 8.45 10*3/uL Normal 3.70-11.00 [facility] Comment on above: Order Comment: Speci men Type: BLOOD SPECIMENOrdering Facility: [facility] Address: [address] Performed By: #### 5 7021-8 ####[facility] LABCLIA [id number] [place] [address] [facility] [place] Comprehensive metabolic 2000 panelon 12-16-2022 Albumin [Mass/Vol] 4.2 g/dL Normal 3.9-4.9 [facility] Comment on above: Order Comment: Speci men Type: BLOOD SPECIMENOrdering Facility: [facility] Address: [address] Performed By: #### 2 4323-8 ####[facility] LABCLIA [id number] [place] [address] [place] ALP [Catalytic activity/Vol] 63 U/L Normal 34-123 [facility] Comment on above: Order Comment: Speci men Type: BLOOD SPECIMENOrdering Facility: [facility] Address: [address] Performed By: #### 2 4323-8 ####[facility] LABCLIA [id number] [place] [address] [place] ALT [Catalytic activity/Vol] 62 U/L High 7-38 [facility] Comment on above: Order Comment: Speci men Type: BLOOD SPECIMENOrdering Facility: [facility] Address: [address] Performed By: #### 2 4323-8 ####[facility] LABCLIA [id number] [place] [address] [place] Anion gap [Moles/Vol] 8 mmol/L Low 9-18 [facility] Comment on above: Order Comment: Speci men Type: BLOOD SPECIMENOrdering Facility: [facility] Address: [address] [place] [address] Performed By: #### 2 4323-8 ####[facility] LABCLIA [id number] [place] [address] [place] AST [Catalytic activity/Vol] 34 U/L Normal 13-35 [facility] Comment on above: Order Comment: Speci men Type: BLOOD SPECIMENOrdering Facility: [facility] Address: [address] [place] [address] Performed By: #### 2 4323-8 ####[facility] LABCLIA [id number] [place] [address] [place] Bilirubin [Mass/Vol] 0.4 mg/dL Normal 0.2-1.[address] [facility] Comment on above: Order Comment: Speci men Type: BLOOD SPECIMENOrdering Facility: [facility] Address: [address] [place], [place] [address] Performed By: #### 2 4323-8 ####[facility] LABCLIA [id number] [place] [address] [place] Calcium [Mass/Vol] 9.5 mg/dL Normal 8.5-10.2 [facility] Comment on above: Order Comment: Speci men Type: BLOOD SPECIMENOrdering Facility: [facility] Address: [address] [place], [place] [address] Performed By: #### 2 4323-8 ####[facility] LABCLIA [id number] [place] [address] [place] Chloride [Moles/Vol] 108 mmol/L High 97-[address] [facility] Comment on above: Order Comment: Speci men Type: BLOOD SPECIMENOrdering Facility: [facility] Address: [address] [place] [address] Performed By: #### 2 4323-8 ####[facility] LABIA [id number] [place] [address] [place] CO2 [Moles/Vol] 26 mmol/L Normal 22-30 [facility] Comment on above: Order Comment: Speci men Type: BLOOD SPECIMENOrdering Facility: [facility] Address: [address] [place] [address] Performed By: #### 2 4323-8 ####[facility] LABIA [id number] [place] [address] [place] Creatinine [Mass/Vol] 0.64 mg/dL Normal 0.58-0.96 [facility] Comment on above: Order Comment: Speci men Type: BLOOD SPECIMENOrdering Facility: [facility] Address: [address] [place] [address] Performed By: #### 2 4323-8 ####[facility] LABIA [id number] [address] [place] ESTIMATED GLOMERULAR FILTRATION RATE 104 mL/min/1.73m??? Normal >=60 [facility] Comment on above: Order Comment: Speci men Type: BLOOD SPECIMENOrdering Facility: [facility] Address: [address] [place] [address] Result Comment: Terra mated Glomerular Filtration Rate (eGFR) is calculated using the 2020 CKD-EPI creatinine equation. This equation utilizes serum creatinine, sex, and age as parameters. The creatinine assay has traceable calibration to isotope dilution-mass spectrometry. Refer to KDIGO guidelines for clinical interpretation. In patients with unstable renal function, e.g. those with acute kidney injury, the eGFR may not accurately reflect actual GFR. Performed By: #### 2 4323-8 ####[facility] LABIA [id number] [place] [address] [place] Glucose [Mass/Vol] 83 mg/dL Normal 74-99 [facility] Comment on above: Order Comment: Speci men Type: BLOOD SPECIMENOrdering Facility: [facility] Address: [address] [place] [address] Result Comment: The [place] [employer] (ADA) provides guidance for cutoff values for fasting glucose and random glucose. The ADA defines fasting as no caloric intake for at least 8 hours. Fasting plasma glucose results between 100 to 125 mg/dL indicate increased risk for diabetes (prediabetes).Fasting plasma glucose results greater than or equal to 126 mg/dL meet the criteria for diagnosis of diabetes. In the absence of unequivocal hyperglycemia, results should be confirmed by repeat testing. In a patient with classic symptoms of hyperglycemia or hyperglycemic crisis, random plasma glucose results greater than or equal to 200 mg/dL meet the criteria for diagnosis of diabetes.Reference: Standards of Medical Care in Diabetes 2016, [place] [employer]. Diabetes Care. 2016.39(Suppl 1). Performed By: #### 2 4323-8 ####[facility] LABCLIA [id number] [place] [address] [place] Potassium [Moles/Vol] 4.2 mmol/L Normal 3.7-5.1 [facility] Comment on above: Order Comment: Speci men Type: BLOOD SPECIMENOrdering Facility: [facility] Address: [address] [place] [address] Performed By: #### 2 4323-8 ####[facility] LABCLIA [id number] [place] [address] [place] Protein [Mass/Vol] 7.0 g/dL Normal 6.3-8.0 [facility] Comment on above: Order Comment: Speci men Type: BLOOD SPECIMENOrdering Facility: [facility] Address: [address] [place] [address] Performed By: #### 2 4323-8 ####[facility] LABCLIA [id number] [place] [address] [place] Sodium [Moles/Vol] 142 mmol/L Normal 136-144 [facility] Comment on above: Order Comment: Chantale glo Type: BLOOD SPECIMENOrdering Facility: [facility] Address: [address] [place] [address] Performed By: #### 2 4323-8 ####[facility] LABCLIA [id number] [place] [address] [place] Urea nitrogen [Mass/Vol] 21 mg/dL Normal 7-21 [facility] Comment on above: Order Comment: Josei men Type: BLOOD SPECIMENOrdering Facility: [facility] Address: [address] [place] [address] Performed By: #### 2 4323-8 ####[facility] LABIA [id number] [place] [address] [place] ECG COMPLETEon 12-16-2022 ECG COMPLETE Normal [facility] HISTORY PHYSICALon HISTORY PHYSICAL Normal [facility] PT panel Coag (PPP)on 2022 INR Coag (PPP) [Relative time] 1.0 {INR} Normal 0.9-1.3 [facility] Comment on above: Order Comment: Chantale glo Type: BLOOD SPECIMENOrdering Facility: [facility] Address: [address] [place] [address] Result Comment: Michelle min K Antagonist (VKA) Therapeutic Range: INR 2 to 3 (Target INR of 2.5)Note: For patients treated with VKA drugs, such as warfarin, the [place] [employer] 2012 Guideline recommends a therapeutic INR range of 2 to 3 (target INR of 2.5). This recommendation includes high-risk patients with antiphospholipid syndrome with previous arterial or venous thromboembolism, current-generation mechanical or bioprosthetic aortic heart valve replacement.Note: Patients with mechanical aortic valve replacement and additional risk factors for thromboembolic events (atrial fibrillation, previous thromboembolism, LV dysfunction, hypercoagulable conditions) or an older generation mechanical AVR (i.e., ball in-Cage) or any mechanical MVR should have a INR therapeutic range of 2.5 to 3.5 (target INR of 3).Awilda GOTTI, et al. Chest 2012, 141:7S-47SSenait RA, et al. [facility] 2017, 70: 252-289 Performed By: #### 3 4528-0, 87456-4 ####[facility] LABCLIA [id number] [address] [place] PT Coag (PPP) [Time] 10.2 s Normal 9.7-13.[address] [facility] Comment on above: Order Comment: Speci men Type: BLOOD SPECIMENOrdering Facility: [facility] Address: [address] [place] [address] Performed By: #### 3 4528-0, 26244-2 ####[facility] LABCLIA [id number] [address] TYPE AND SCREEN,30 DAYon ABO B Normal [facility] Comment on above: Order Comment: Speci men Type: BLOOD SPECIMENOrdering Facility: [facility] Address: [address] [place] [address] Performed By: #### T SCR30 ####[facility] BLOOD BANKIA [id number] [address] [place] HISTORICAL AB SCR STATUS Negative Normal [facility] Comment on above: Order Comment: Speci men Type: BLOOD SPECIMENOrdering Facility: [facility] Address: [address] [place] [address] Performed By: #### T SCR30 ####[facility] BLOOD BANKCLIA [id number] [address] [place] Rh Nom (Bld) Positive Normal [facility] Comment on above: Order Comment: Speci men Type: BLOOD SPECIMENOrdering Facility: [facility] Address: [address] Performed By: #### T SCR30 ####[facility] BLOOD BANKIA [id number] [address] [place] aPTT PPPon 12-16-2022 aPTT Coag (PPP) [Time] 24.7 s Normal 23.0-32.4 Cl [facility] Comment on above: Order Comment: Speci men Type: BLOOD SPECIMENOrdering Facility: [facility] Address: [address] [id number] Performed By: #### 3 4528-0, 42609-2 ####[facility] LABCLIA [id number] [facility]ITALEdilia [facility]PITALAngela [address] [place] LIPID PROFILEon 11-16-2022 CHOL-HDL RATIO NORM SEE BELOW Normal [facility] Comment on above: Result Comment: 3.3 - 4.4 LOW RISK 4.4 - 7.1 AVERAGE RISK 7.1 - 11.0 MODERATE RISK >11.0 HIGH RISK Performed By: #### A ST, LIPID, ALT #### [facility] [address] [place] [address] [address] Carrie Gan Cholesterol [Mass/Vol] 209 mg/dL Critically high <=200 [facility] Comment on above: Performed By: #### A ST, LIPID, ALT #### [facility] [address] [place] [address] [address] Carrie Gan Cholesterol in HDL [Mass/Vol] 107 mg/dL Critically high 40-60 [facility] Comment on above: Performed By: #### A ST, LIPID, ALT #### [facility] [address] [place] [address] [address] Carrie Gan Cholesterol in LDL [Mass/Vol] 77.0 mg/dL Normal [facility] Comment on above: Performed By: #### A ST, LIPID, ALT #### [facility] [address] [address] [address] Carrie Gan Cholesterol.total/Chol esterol in HDL [Mass ratio] 2.0 {ratio} Normal [facility] Comment on above: Performed By: #### A ST, LIPID, ALT #### [facility] [address] [place] [address] [address] Carrie Gan HDL NORMAL > or = 60 mg/dl - LO W CARDIOVASCULAR RISK <40 mg/dl - HIGH CARDIOVASCULAR RISK Normal [facility] Comment on above: Performed By: #### A ST, LIPID, ALT #### [facility] [address] [address] [address] Carrie Gan LDL CALC NORMAL SEE BELOW Normal [facility] [facility] Comment on above: Result Comment: <100 mg/dl OPTIMAL 100 - 129 mg/dl NEAR OR ABOVE OPTIMAL 130 - 159 mg/dl BORDERLINE HIGH 160 - 189 mg/dl HIGH >190 mg/dl VERY HIGH Performed By: #### A ST, LIPID, ALT #### [facility] [address] [address] [address] Carrie Gan Triglyceride [Mass/Vol] 125 mg/dL Normal <=150 [facility] Comment on above: Performed By: #### A ST, LIPID, ALT #### [facility] [address] [address] [address] Carrie Gan VLDL CALC 25.0 mg/dL Normal [facility] Comment on above: Performed By: #### A ST, LIPID, ALT #### [facility] [address] [address] [address] Carrie Tomlinson 11-16-2022 AST [Catalytic activity/Vol] 29 U/L Normal 15-37 [facility] Comment on above: Performed By: #### A ST, LIPID, ALT #### [facility] [address] [address] [address] Carrie RODRÍGUEZPTon 11-16-2022 ALT [Catalytic activity/Vol] 50 U/L Normal 14-59 [facility] Comment on above: Performed By: #### A ST, LIPID, ALT #### [facility] [address] [address] [address] Carrie Gan FREE T4on 10-22-2022 Free T4 [Mass/Vol] 0.97 ng/dL Normal 0.76-1.46 [facility] Comment on above: Performed By: #### A ST, LIPID, ALT #### [facility] [address] [address] [address] Carrie Gan TSHon 10-22-2022 TSH 4.566 uIU/mL Critically high 0.358-3.74 0 [facility] Comment on above: Performed By: #### A ST, LIPID, ALT #### [facility] [address] [place], [place] [address] Dr. Carrie Gan Office Visit (Cardiology)on 10-14-2022 Follow-up visit Diagnoses/Problems Assessed Vasospastic angina (413.1) (I20.1) Normal coronary angiogram (V72.85) September 2022 hospitalized at [facility] due to NSTEMI. Cardiac catheterization with diffuse luminal irregularities LVEF 60% Normal cardiac ejection fraction September 2022 echocardiogram LVEF 60% Body mass index (BMI) of 24.0 to 24.9 in adult (V85.1) (Z68.24) Orders Normal cardiac ejection fraction, Normal coronary angiogram, Vasospastic angina Cardiac Rehab Referral Evaluation and Treatment Evaluate AND Treat Status: Hold For - Scheduling Requested for: 14Oct2022 Agreement : I agree to have my patient participate in the phase III outpatient cardiac rehabilitation program after completion of the phase II program. Consent : I consent to have my patient participate in the cardiac rehabilitation program. I will continue regular medical care of my patient throughout his/her participation in the program. Individualized Treatment Plan and Exercise Prescription : Defer the patients ITP and exercise prescription to be developed by the staff for your review and approval I authorize the Cardiac Rehabilitation Department to : Current lab values are helpful in order to assess the lipid status and individualize diet therapy. A venous blood sample will be drawn and lipids analyzed at the laboratory I authorize the Cardiac Rehabilitation Department to : Schedule a symptom limited graded exercise test with 12 lead ECG prior to starting cardiac rehabilitation and at discharge, if needed. ALT - Alanine Aminotransferase, Serum; Status:Active; Requested for:07Dec2022; AST; Status:Active; Requested for:07Dec2022; Lipid Panel; Status:Active; Requested for:07Dec2022; Vasospastic angina Start: Ranolazine ER 500 MG Oral Tablet Extended Release 12 Hour; TAKE 1 TABLET BY MOUTH TWO TIMES A DAY Unlinked Stop: amLODIPine Besylate 2.5 MG Oral Tablet Patient Instructions Please bring all medicines, vitamins, and herbal supplements with you when you come to the office. Prescriptions will not be filled unless you are compliant with your follow up appointments or have a follow up appointment scheduled as per instruction of your physician. Refills should be requested at the time of your visit. PLAN: Through informed decision making process incorporating patients unique circumstances, the following treatment plan will be initiated: 1. Prescription drug management of cardiovascular medication for efficacy, adherence to treatment, side effect assessment and polypharmacy. Current treatment clinically warranted and to continue without modifications. - Stop amlodipine (it is making your blood pressure too low and you still had chest pain on it) - Begin Ranexa 500mg twice daily 2. Referral to cardiac rehab 3. Lipids in 2 months 4. Return for follow-up; in the interim, contact the office if new symptoms arise. 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 Patient presents to the office ambulatory with steady gait, is accompanied by her . This is initial in clinic follow-up at [facility]. September 2022 hospitalized at [facility], seen in consultation by Dr. Jackson due to NSTEMI with cardiac catheterization revealing angiographically normal coronaries and normal LVEF. Possibly considered to be due to vasospasm. At discharge aspirin, pravastatin and amlodipine added to medical regimen. Patient presents to the office today where she reports going to the emergency department last due to recurrence of chest pain and jaw pain. She was in the swimming pool with her grandchildren with a sudden onset of symptoms. She reports taking 4 baby aspirin with some benefit. She otherwise reports feeling lightheaded and sluggish, mildly symptomatic hypotension noted in the office on very low-dose amlodipine. Her right radial cath site is healed without adverse sequela. From an activity standpoint she is doing Silver sneakers twice a week, some light swimming at the [facility]. Completes ADLs and housework. She does agree to initiate cardiac rehab. Recent hospitalization and testing results reviewed and detailed. Discussed vasospastic angina. At this time, she had 1 additional recurrence and due to borderline blood pressure unable to further uptitrate amlodipine or add long-acting nitrates. We will trial a course of Ranexa 500 mg twice daily. Otherwise continue with aggressive primary prevention. History of Present Illness The patient states she has been generally doing well since the last visit. Comorbid Illnesses: hyperlipidemia. Symptoms: denies chest pain at rest, resolved exertional chest pain, denies dyspnea, denies fatigue, denies exercise intolerance, denies palpitations, denies edema, denies orthopnea, worsened dizziness and worsened orthostatic dizziness. Associated symptoms: no syncope. Her sympto (more content not included)... Normal [facility] Tobacco Screening.on 023 Adult depression screening assessment No -[facility] [address] DO Work Phone: Fall risk assessment c) Not medically indicated -[facility] [address] DO Work Phone: Tobacco use status [facility] b) No -[facility] [address] DO Work Phone: Activated partial thrombopla stin time (aPTT) in platelet poor plasma by coagulation aOrdered By: Alex Chaves on 10-06-2022 aPTT Coag (PPP) [Time] 21.8 s 25.1-36.5 [facility] B-Type Natriuretic Peptideon 10-06-2022 Natriuretic peptide B (Bld) [Mass/Vol] 51.0 pg/mL Normal 5-100 [facility] Comment on above: Result Comment: PERF ORMED BY: [place] [address] PATHOLOGIST EXECUTIVE VICE PRESIDENT BUSINESS DEVELOPMENT MEHDI ESPARZA M.D. Performed By: #### B MP, HS TROP, PTT, CK, PT, CBC, BNP #### [facility] [address] [place] [address] Basic Metabolic Panelon 04-0 Anion gap [Moles/Vol] 11.6 mmol/L Normal 6.0-15.0 [facility] Comment on above: Performed By: #### B MP, HS TROP, PTT, CK, PT, CBC, BNP #### [address] Calcium [Mass/Vol] 9.7 mg/dL Normal 8.6-10.[address] [facility] Comment on above: Performed By: #### B MP, HS TROP, PTT, CK, PT, CBC, BNP #### [facility] [address] Chloride [Moles/Vol] 107 mmol/L Normal 98-107 [facility] Comment on above: Performed By: #### B MP, HS TROP, PTT, CK, PT, CBC, BNP #### [facility] [address] CO2 [Moles/Vol] 26.5 mmol/L Normal 21.0-31.0 [facility] Comment on above: Performed By: #### B MP, HS TROP, PTT, CK, PT, CBC, BNP #### [facility] [address] Creatinine [Mass/Vol] 0.70 mg/dL Normal 0.60-1.20 [facility] Comment on above: Performed By: #### B MP, HS TROP, PTT, CK, PT, CBC, BNP #### [facility] [address] Creatinine Clr Calc Pharmacy 74.23 [facility] Comment on above: Result Comment: PERF ORMED BY: [place] [address] PATHOLOGIST EXECUTIVE VICE PRESIDENT BUSINESS DEVELOPMENT MEHDI ESPARZA M.D. Performed By: #### B MP, HS TROP, PTT, CK, PT, CBC, BNP #### [address] GFR/1.73 sq M.predicted MDRD (S/P/Bld) [Vol rate/Area] mL/min/{1.73_m2} [facility] Comment on above: Performed By: #### B MP, HS TROP, PTT, CK, PT, CBC, BNP #### [facility] [address] Glucose [Mass/Vol] 100 mg/dL Normal 70-[address] [facility] Comment on above: Result Comment: [place] Glucose Reference Range is dependent on time and content of last meal. Glucose of more than 200 mg/dL in a nonstressed, ambulatory subject supports the diagnosis of Diabetes Mellitus. ADA recommended reference range Performed By: #### B MP, HS TROP, PTT, CK, PT, CBC, BNP #### [facility] [address] Potassium [Moles/Vol] 4.1 mmol/L Normal 3.5-5.1 [facility] Comment on above: Performed By: #### B MP, HS TROP, PTT, CK, PT, CBC, BNP #### [facility] [address] Sodium [Moles/Vol] 141 mmol/L Normal 136-[address] [facility] Comment on above: Performed By: #### B MP, HS TROP, PTT, CK, PT, CBC, BNP #### [facility] [address] Urea nitrogen [Mass/Vol] 24 mg/dL Normal 7-25 [facility] Comment on above: Performed By: #### B MP, HS TROP, PTT, CK, PT, CBC, BNP #### [facility] [address] Basophils Auto (Bld) [#/Vol] Ordered By: Alex Chaves on 10-06-2022 Basophils (Bld) [#/Vol] 0.0 10*3/uL 0.0-0.2 [facility] Basophils/100 WBC Auto (Bld) Ordered By: Alex Chaves on 10-06-2022 Basophils/100 WBC (Bld) 0.6 % . [facility] Calcium [Mass/volume] in Ser um or PlasmaOrdered By: Alex Chaves on 10-06-2022 Calcium [Mass/Vol] 9.7 mg/dL 8.6-10.[address] [facility] Carbon dioxide, total [Moles /volume] in Serum or PlasmaOrdered By: Alex Chaves on 10-06-2022 CO2 [Moles/Vol] 26.5 mmol/L 21.0-31.0 [facility] Chloride [Moles/volume] in S girish or PlasmaOrdered By: Alex Chaves on 10-06-2022 Chloride [Moles/Vol] 107 mmol/L 98-107 [facility] Complete Blood Count Auto Di ffon 10-06-2022 Basophils (Bld) [#/Vol] 0.0 10*3/uL Normal 0.0-0.2 [facility] Comment on above: Result Comment: PERF ORMED BY: [place] [address] PATHOLOGIST EXECUTIVE VICE PRESIDENT BUSINESS DEVELOPMENT MEHDI ESPARZA M.D. Performed By: #### B MP, HS TROP, PTT, CK, PT, CBC, BNP #### [address] Basophils/100 WBC (Bld) 0.6 % Normal . [facility] Comment on above: Performed By: #### B MP, HS TROP, PTT, CK, PT, CBC, BNP #### [address] Eosinophils (Bld) [#/Vol] 0.1 10*3/uL Normal 0.0-0.45 [facility] Comment on above: Performed By: #### B MP, HS TROP, PTT, CK, PT, CBC, BNP #### [address] Eosinophils/100 WBC (Bld) 1.2 % Normal . [facility] Comment on above: Performed By: #### B MP, HS TROP, PTT, CK, PT, CBC, BNP #### [address] Erythrocyte distribution width (RBC) [Ratio] 13.7 % Normal 11.9-15.3 [facility] Comment on above: Performed By: #### B MP, HS TROP, PTT, CK, PT, CBC, BNP #### [address] Hematocrit (Bld) [Volume fraction] 43.0 % Normal 34.0-46.4 [facility] Comment on above: Performed By: #### B MP, HS TROP, PTT, CK, PT, CBC, BNP #### [address] Hemoglobin (Bld) [Mass/Vol] 14.5 g/dL Normal 11.8-15.4 [facility] Comment on above: Performed By: #### B MP, HS TROP, PTT, CK, PT, CBC, BNP #### [address] Lymphocytes (Bld) [#/Vol] 2.4 10*3/uL Normal 1.00-4.8 [facility] Comment on above: Performed By: #### B MP, HS TROP, PTT, CK, PT, CBC, BNP #### [address] Lymphocytes/100 WBC (Bld) 39.9 % Normal . [facility] Comment on above: Performed By: #### B MP, HS TROP, PTT, CK, PT, CBC, BNP #### [address] MCH (RBC) [Entitic mass] 31.2 pg Normal 24.7-34.3 [facility] Comment on above: Performed By: #### B MP, HS TROP, PTT, CK, PT, CBC, BNP #### [address] MCV (RBC) [Entitic vol] 92.5 fL Normal 80-100 [facility] Comment on above: Performed By: #### B MP, HS TROP, PTT, CK, PT, CBC, BNP #### [address] Mean Corpuscular HGB Conc 33.7 g/dL Normal 32.0-35.0 [facility] Comment on above: Performed By: #### B MP, HS TROP, PTT, CK, PT, CBC, BNP #### [address] Monocytes (Bld) [#/Vol] 0.3 10*3/uL Normal 0.0-0.8 [facility] Comment on above: Performed By: #### B MP, HS TROP, PTT, CK, PT, CBC, BNP #### [place] [address] [place] Monocytes/100 WBC (Bld) 17.54 % Normal 0.00-20.00 [facility] Comment on above: Performed By: #### B MP, HS TROP, PTT, CK, PT, CBC, BNP #### [address] Monocytes/100 WBC (Bld) 5.0 % Normal . [facility] Comment on above: Performed By: #### B MP, HS TROP, PTT, CK, PT, CBC, BNP #### [address] Neutrophils (Bld) [#/Vol] 3.2 10*3/uL Normal 1.8-7.7 [facility] Comment on above: Performed By: #### B MP, HS TROP, PTT, CK, PT, CBC, BNP #### [address] Neutrophils/100 WBC (Bld) 53.3 % Normal . [facility] Comment on above: Performed By: #### B MP, HS TROP, PTT, CK, PT, CBC, BNP #### [address] NRBC% 0.0 /100{WBC} Normal 0-0.5 [facility] Comment on above: Performed By: #### B MP, HS TROP, PTT, CK, PT, CBC, BNP #### [address] Platelet mean volume (Bld) [Entitic vol] 7.4 fL Normal 6.3-10.7 [facility] Comment on above: Performed By: #### B MP, HS TROP, PTT, CK, PT, CBC, BNP #### [place] [address] [place] Platelets (Bld) [#/Vol] 186 10*3/uL Normal 150-450 [facility] Comment on above: Performed By: #### B MP, HS TROP, PTT, CK, PT, CBC, BNP #### [place] [address] [place] RBC (Bld) [#/Vol] 4.65 10*6/uL Normal 3.60-5.00 [facility] Comment on above: Performed By: #### B MP, HS TROP, PTT, CK, PT, CBC, BNP #### [facility] [address] [id number] [facility] WBC (Bld) [#/Vol] 6.0 10*3/uL Normal 3.8-11.[address] [facility] Comment on above: Performed By: #### B MP, HS TROP, PTT, CK, PT, CBC, BNP #### [facility] [address] [place], [place] [id number] [facility] Creatine Kinaseon 10-06-2022 CK [Catalytic activity/Vol] 71 U/L Normal [facility] Comment on above: Performed By: #### B MP, HS TROP, PTT, CK, PT, CBC, BNP #### [facility] [address] [place] [address] Creatine kinase [Enzymatic a ctivity/volume] in Serum or PlasmaOrdered By: Alex Chaves on 10-06-2022 CK [Catalytic activity/Vol] 71 U/L [facility] Creatinine [Mass/volume] in Serum or PlasmaOrdered By: Alex Chaves on 10-06-2022 Creatinine [Mass/Vol] 0.70 mg/dL 0.60-1.20 [facility] ECG 12 lead ECGon 10-06-2022 ECG 12 lead ECG [facility] [place] [address] Electrocardiograph Report Signed Patient: Yari Daily MR#: [id number] 92 : 1965 Acct:[id number] Age/Sex: 57 / F ADM Date: 10/06/22 Loc: ER Room: Type: [facility] ER Attending Dr: Ordering Provider: Alex Chaves DO Date of Service: 10/06/2210/25/1649 ECG/ECG 12 lead ECG: Chest Pain Copies to: Test Reason : Blood Pressure : 133/093 mmHG Vent. Rate : 090 BPM Atrial Rate : 090 BPM P-R Int : 156 ms QRS Dur : 090 ms QT Int : 380 ms P-R-T Axes : 055 038 031 degrees QTc Int : 464 ms Normal sinus rhythm Confirmed by Alex CHAVES DO ([id number]) on 10/07/2022 10:05:28 AM Referred By: Electronically Signed By:Alex CHAVES DO Transcribed By: MUS Signed By Alex Chaves DO 0 10/07/22 1005 Normal [facility] Eosinophils Auto (Bld) [#/Vo l]Ordered By: Alex Chaves on 10-06-2022 Eosinophils (Bld) [#/Vol] 0.1 10*3/uL 0.0-0.45 [facility] Eosinophils/100 WBC Auto (Bl d)Ordered By: Alex Chaves on 10-06-2022 Eosinophils/100 WBC (Bld) 1.2 % . [facility] Erythrocyte distribution wid th Auto (RBC) [Ratio]Ordered By: Alex Chaves on 10-06-2022 Erythrocyte distribution width (RBC) [Ratio] 13.7 % 11.9-15.3 [facility] Glucose [Mass/volume] in Ser um or PlasmaOrdered By: Alex Chaves on 10-06-2022 Glucose [Mass/Vol] 100 mg/dL 70-[address] [facility] Comment on above: ADA recommended refe rence rangeRandom Glucose Reference Range is dependent on time and content of last meal. Glucose of more than 200 mg/dL in a nonstressed, ambulatory subject supports the diagnosis of Diabetes Mellitus. Hematocrit Auto (Bld) [Volum e fraction]Ordered By: Alex Chaves on 10-06-2022 Hematocrit (Bld) [Volume fraction] 43.0 % 34.0-46.4 [facility] Hemoglobin [Mass/volume] in BloodOrdered By: Alex Chaves 10-06-2022 Hemoglobin (Bld) [Mass/Vol] 14.5 g/dL 11.8-15.4 [facility] - CoagulationOrde red By: Alex Chaves on 10-06-2022 PT Coag (PPP) [Time] 11.0 s 9.0-12.9 [facility] Leukocytes [#/volume] correc grisel for nucleated erythrocytes in Blood by Automated counOrdered By: Alex Chaves on 10-06-2022 WBC corrected for nucl RBC Auto (Bld) [#/Vol] 6.0 10*3/uL 3.8-11.6 [facility] Lymphocytes Auto (Bld) [#/Vo l]Ordered By: Alex Chaves on 10-06-2022 Lymphocytes (Bld) [#/Vol] 2.4 10*3/uL 1.00-4.8 [facility] Lymphocytes/100 WBC Auto (Bl d)Ordered By: Alex Chaves on 10-06-2022 Lymphocytes/100 WBC (Bld) 39.9 % . [facility] MCH Auto (RBC) [Entitic mass ]Ordered By: Alex Chaves on 10-06-2022 MCH (RBC) [Entitic mass] 31.2 pg 24.7-34.3 [facility] MCHC Auto (RBC) [Mass/Vol]Or dered By: Alex Chaves on 10-06-2022 MCHC (RBC) [Mass/Vol] 33.7 g/dL 32.0-35.0 [facility] MCV Auto (RBC) [Entitic vol] Ordered By: Alex Chaves on 10-06-2022 MCV (RBC) [Entitic vol] 92.5 fL 80-100 [facility] Monocyte distribution width [Entitic volume] in Blood by AutomatedOrdered By: Alex Chaves on 10-06-2022 Monocyte distribution width Auto (Bld) [Entitic vol] 17.54 % 0.00-20.00 [facility] Monocytes Auto (Bld) [#/Vol] Ordered By: Alex Chaves on 10-06-2022 Monocytes (Bld) [#/Vol] 0.3 10*3/uL 0.0-0.8 [facility] Monocytes/100 WBC Auto (Bld) Ordered By: Alex Chaves on 10-06-2022 Monocytes/100 WBC (Bld) 5.0 % . [facility] Natriuretic peptide B [Mass/ Vol]Ordered By: Alex Chaves on 10-06-2022 Natriuretic peptide B (Bld) [Mass/Vol] 51.0 pg/mL 5-100 [facility] Neutrophils Auto (Bld) [#/Vo l]Ordered By: Alex Chaves on 10-06-2022 Neutrophils (Bld) [#/Vol] 3.2 10*3/uL 1.8-7.7 [facility] Neutrophils/100 WBC Auto (Bl d)Ordered By: Alex Chaves on 10-06-2022 Neutrophils/100 WBC (Bld) 53.3 % . [facility] No Panel InformationOrdered By: Alex Chaves on 10-06-2022 Estimated GFR (CKD-EPI) > 60.0 mL/Min [facility] Creatinine Clearance (Chem 74.23 [facility] Nucleated erythrocytes [Pres ence] in Blood by Automated countOrdered By: Alex Chaves on 10-06-2022 Nucleated RBC Auto Ql (Bld) 0.0 /100{WBC} 0-0.5 [facility] Partial Thromboplastin Timeo n 10-06-2022 aPTT Coag (Bld) [Time] 21.8 s Low 25.1-36.5 [facility] Comment on above: Result Comment: PERF ORMED BY: [place] [address] PATHOLOGIST EXECUTIVE VICE PRESIDENT BUSINESS DEVELOPMENT MEHDI ESPARZA M.D. Performed By: #### B MP, HS TROP, PTT, CK, PT, CBC, BNP #### [address] Platelet mean volume Auto (B ld) [Entitic vol]Ordered By: Alex Chaves on 10-06-2022 Platelet mean volume (Bld) [Entitic vol] 7.4 fL 6.3-10.7 [facility] Platelet poor plasma interna tional normalized ratio (INR) by coagulation assay (relatOrdered By: Alex Chaves on 10-06-2022 INR Coag (PPP) [Relative time] 1.0 {INR} [facility] Comment on above: INR Therapeutic Rang e A) Pre- and Peroperative OAT started two weeks before surgery. NOT HIP SURGERY: 1.5 - 2.5 HIP SURGERY: 2 - 3B) Primary and secondary prevention of venous THROMBOSIS: 2 - 3C) Active venous thrombosis, pulmonary embolismand prevention of recurrent venous thrombosis: 2 - 3D) Prevention of arterial thromboembolismincluding patients with mechanical heart valves: 3 - 4.5 Platelets Auto (Bld) [#/Vol] Ordered By: Alex Chaves on 10-06-2022 Platelets (Bld) [#/Vol] 186 10*3/uL 150-450 [facility] Potassium [Moles/volume] in Serum or PlasmaOrdered By: Alex Chaves on 10-06-2022 Potassium [Moles/Vol] 4.1 mmol/L 3.5-5.1 [facility] Prothrombin Time INRon 10-06 INR Coag (PPP) [Relative time] 1.0 {INR} Normal [facility] Comment on above: Result Comment: INR Therapeutic Range A) Pre- and Peroperative OAT started two weeks before surgery. NOT HIP SURGERY: 1.5 - 2.5 HIP SURGERY: 2 - 3 B) Primary and secondary prevention of venous THROMBOSIS: 2 - 3 C) Active venous thrombosis, pulmonary embolism and prevention of recurrent venous thrombosis: 2 - 3 D) Prevention of arterial thromboembolism including patients with mechanical heart valves: 3 - 4.5 Performed By: #### B MP, HS TROP, PTT, CK, PT, CBC, BNP #### [facility] [address] PT Coag (PPP) [Time] 11.0 s Normal 9.0-12.9 [facility] Comment on above: Performed By: #### B MP, HS TROP, PTT, CK, PT, CBC, BNP #### [facility] [address] RBC Auto (Bld) [#/Vol]Ordere d By: Alex Chaves on 10-06-2022 RBC (Bld) [#/Vol] 4.65 10*6/uL 3.60-5.00 [facility] Serum or plasma anion gap de terminationOrdered By: Alex Chaves on 10-06-2022 Anion gap [Moles/Vol] 11.6 mmol/L 6.0-15.0 [facility] Sodium [Moles/volume] in Ser um or PlasmaOrdered By: Alex Chaves on 10-06-2022 Sodium [Moles/Vol] 141 mmol/L 136-[address] [facility] Troponin I High Sensitivityo n 10-06-2022 Troponin I High Sensitivity 11.0 pg/mL Normal 0.0-15.0 [facility] Comment on above: Order Comment: Comme nt Redraw and repeat at 630 Result Comment: PERF ORMED BY: [place] [address] PATHOLOGIST EXECUTIVE VICE PRESIDENT BUSINESS DEVELOPMENT MEHDI ESPARZA M.D. Performed By: #### B MP, HS TROP, PTT, CK, PT, CBC, BNP #### [address] [address] [facility] Troponin I High Sensitivity 9.2 pg/mL Normal 0.0-15.0 [facility] Comment on above: Result Comment: PERF ORMED BY: [place] [address] PATHOLOGIST EXECUTIVE VICE PRESIDENT BUSINESS DEVELOPMENT MEHDI ESPARZA M.D. Performed By: #### B MP, HS TROP, PTT, CK, PT, CBC, BNP #### [place] [id number] [facility] Troponin I.cardiac [Mass/vol ume] in Serum or Plasma by Detection limit <= 0.01 ng/Ordered By: Jermaine Sinha on 10-06-2022 Troponin I.cardiac DL <= 0.01 ng/mL [Mass/Vol] 11.0 pg/mL 0.0-15.0 [facility] Urea nitrogen [Mass/volume] in Serum or PlasmaOrdered By: Alex Chaves on 10-06-2022 Urea nitrogen [Mass/Vol] 24 mg/dL 7-25 [facility] WBC Auto (Bld) [#/Vol]Ordere d By: Alex Chaves on 10-06-2022 WBC (Bld) [#/Vol] 6.0 10*3/uL 3.8-11.[address] [facility] XR chest 2V*on 10-06-2022 XR chest 2V* [facility] Main [address] [address] XRay Report Signed Patient: Yari Daily MR#: [id number] 92 : 1965 Acct:[id number] Age/Sex: 57 / F ADM Date: 10/06/22 Loc: ER Room: Type: [facility] ER Attending Dr: Copies to: DO Jermaine Carranza MD Ordering Provider: Alex Chaves DO Date of Service: 10/06/22 XR/XR chest 2V*: Chest Pain PA AND LATERAL CHEST: CLINICAL HISTORY: Left-sided chest pain radiating to the jaw while swimming today. COMPARISON: 09/16/2022 There is no focal parenchymal consolidation, effusion or pneumothorax. The cardiac, hilar and mediastinal silhouettes are within normal limits. There is no vascular congestion. The visualized bony thorax is intact. There is dextroscoliotic curvature and endplate spurring. XR/XR chest 2V* IMPRESSION: NO ACUTE CARDIOPULMONARY ABNORMALITY. Impression dictated by: Clare Russell M.D.10/06/2022 6:22 PM Dictation Location: [place] [id number] Transcribed By: [facility] 10/06/221821 Dictated By: Clare Russell MD 10/06/221810 Signed By: 10/06/22 [address] [facility] [address] ABD/PEL WO IVCONon 2022 CT ABD/PEL WO IVCON Normal [facility] Activated partial thrombopla stin time (aPTT) in platelet poor plasma by coagulation aOrdered By: Carlos Alberto Jackson on 09-17-2022 aPTT Coag (PPP) [Time] 70.0 s 25.1-36.5 [facility] Alanine aminotransferase [En zymatic activity/volume] in Serum or PlasmaOrdered By: Arjun Layton on 09-17-2022 ALT [Catalytic activity/Vol] 40 U/L 7-52 [facility] Albumin [Mass/volume] in Ser um or Plasma by Bromocresol green (BCG) dye binding methoOrdered By: Arjun Layton on 09-17-2022 Albumin BCG dye [Mass/Vol] 3.5 g/dL 3.5-5.7 [facility] Alkaline phosphatase [Enzyma tic activity/volume] in Serum or PlasmaOrdered By: Arjun Layton on 09-17-2022 ALP [Catalytic activity/Vol] 47 U/L 34-104 [facility] Aspartate aminotransferase [ Enzymatic activity/volume] in Serum or PlasmaOrdered By: Arjun Layton on 09-17-2022 AST [Catalytic activity/Vol] 23 U/L 13-39 [facility] Basophils Auto (Bld) [#/Vol] Ordered By: Carlos Alberto Jackson on 09-17-2022 Basophils (Bld) [#/Vol] 0.0 10*3/uL 0.0-0.2 [facility] Basophils/100 WBC Auto (Bld) Ordered By: Carlos Alberto Jackson on 09-17-2022 Basophils/100 WBC (Bld) 0.4 % . [facility] Bilirubin.total [Mass/volume ] in Serum or PlasmaOrdered By: Arjun Layton on 09-17-2022 Bilirubin [Mass/Vol] 0.7 mg/dL 0.3-1.0 [facility] Calcium [Mass/volume] in Ser um or PlasmaOrdered By: Arjun Layton on 09-17-2022 Calcium [Mass/Vol] 8.8 mg/dL 8.6-10.[address] [facility] Carbon dioxide, total [Moles /volume] in Serum or PlasmaOrdered By: Arjun Layton on 09-17-2022 CO2 [Moles/Vol] 23.3 mmol/L 21.0-31.0 [facility] Chloride [Moles/volume] in S girish or PlasmaOrdered By: Arjun Layton on 09-17-2022 Chloride [Moles/Vol] 115 mmol/L 98-107 [facility] Cholesterol [Mass/volume] in Serum or PlasmaOrdered By: Arjun Layton on 09-17-2022 Cholesterol [Mass/Vol] 179 mg/dL 140-200 [facility] Comment on above: Chol less than 200 m g/dl low riskChol 201-239 mg/dl borderline riskChol 240 mg/dl and greater high risk Cholesterol in LDL Calc [Mas s/Vol]Ordered By: Arjun Layton on 09-17-2022 Cholesterol in LDL [Mass/Vol] 80 mg/dL 0-100 [facility] Comment on above: LDL ATP III CLASSIFI CATIONLDL less than 100 mg/dL OptimalLDL 100-129 mg/dL Near or above optimalLDL 130-159 mg/dL Borderline highLDL 160-189 mg/dL HighLDL greater than 189 mg/dL Very high Cholesterol in VLDL Calc [Ma ss/Vol]Ordered By: Arjun Layton on 09-17-2022 Cholesterol in VLDL [Mass/Vol] 25 mg/dL [facility] Complete Blood Count Auto Di ffon 09-17-2022 Basophils (Bld) [#/Vol] 0.0 10*3/uL Normal 0.0-0.2 [facility] Comment on above: Result Comment: PERF ORMED BY: [place] [address] PATHOLOGIST EXECUTIVE VICE PRESIDENT BUSINESS DEVELOPMENT MEHDI ESPARZA M.D. Performed By: #### B MP, HS TROP, PTT, CK, PT, CBC, BNP #### [address] Basophils/100 WBC (Bld) 0.4 % Normal . [facility] Comment on above: Performed By: #### B MP, HS TROP, PTT, CK, PT, CBC, BNP #### [address] Eosinophils (Bld) [#/Vol] 0.0 10*3/uL Normal 0.0-0.45 [facility] Comment on above: Performed By: #### B MP, HS TROP, PTT, CK, PT, CBC, BNP #### [address] Eosinophils/100 WBC (Bld) 1.1 % Normal . [facility] Comment on above: Performed By: #### B MP, HS TROP, PTT, CK, PT, CBC, BNP #### [address] Erythrocyte distribution width (RBC) [Ratio] 14.0 % Normal 11.9-15.3 [facility] Comment on above: Performed By: #### B MP, HS TROP, PTT, CK, PT, CBC, BNP #### [address] Hematocrit (Bld) [Volume fraction] 38.3 % Normal 34.0-46.4 [facility] Comment on above: Performed By: #### B MP, HS TROP, PTT, CK, PT, CBC, BNP #### [address] Hemoglobin (Bld) [Mass/Vol] 12.9 g/dL Normal 11.8-15.4 [facility] Comment on above: Performed By: #### B MP, HS TROP, PTT, CK, PT, CBC, BNP #### [address] Lymphocytes (Bld) [#/Vol] 1.4 10*3/uL Normal 1.00-4.8 [facility] Comment on above: Performed By: #### B MP, HS TROP, PTT, CK, PT, CBC, BNP #### [address] Lymphocytes/100 WBC (Bld) 36.2 % Normal . [facility] Comment on above: Performed By: #### B MP, HS TROP, PTT, CK, PT, CBC, BNP #### [address] MCH (RBC) [Entitic mass] 31.2 pg Normal 24.7-34.3 [facility] Comment on above: Performed By: #### B MP, HS TROP, PTT, CK, PT, CBC, BNP #### [address] MCV (RBC) [Entitic vol] 92.7 fL Normal 80-100 [facility] Comment on above: Performed By: #### B MP, HS TROP, PTT, CK, PT, CBC, BNP #### [address] Mean Corpuscular HGB Conc 33.7 g/dL Normal 32.0-35.0 [facility] Comment on above: Performed By: #### B MP, HS TROP, PTT, CK, PT, CBC, BNP #### [address] Monocytes (Bld) [#/Vol] 0.2 10*3/uL Normal 0.0-0.8 [facility] Comment on above: Performed By: #### B MP, HS TROP, PTT, CK, PT, CBC, BNP #### [address] Monocytes/100 WBC (Bld) 5.5 % Normal . [facility] Comment on above: Performed By: #### B MP, HS TROP, PTT, CK, PT, CBC, BNP #### [address] Neutrophils (Bld) [#/Vol] 2.3 10*3/uL Normal 1.8-7.7 [facility] Comment on above: Performed By: #### B MP, HS TROP, PTT, CK, PT, CBC, BNP #### [address] Neutrophils/100 WBC (Bld) 56.8 % Normal . [facility] Comment on above: Performed By: #### B MP, HS TROP, PTT, CK, PT, CBC, BNP #### [address] NRBC% 0.0 /100{WBC} Normal 0-0.5 [facility] Comment on above: Performed By: #### B MP, HS TROP, PTT, CK, PT, CBC, BNP #### [address] Platelet mean volume (Bld) [Entitic vol] 7.5 fL Normal 6.3-10.7 [facility] Comment on above: Performed By: #### B MP, HS TROP, PTT, CK, PT, CBC, BNP #### [address] Platelets (Bld) [#/Vol] 160 10*3/uL Normal 150-450 [facility] Comment on above: Performed By: #### B MP, HS TROP, PTT, CK, PT, CBC, BNP #### [address] RBC (Bld) [#/Vol] 4.13 10*6/uL Normal 3.60-5.00 [facility] Comment on above: Performed By: #### B MP, HS TROP, PTT, CK, PT, CBC, BNP #### [address] WBC (Bld) [#/Vol] 4.0 10*3/uL Normal 3.8-11.[address] [facility] Comment on above: Performed By: #### B MP, HS TROP, PTT, CK, PT, CBC, BNP #### [address] Comprehensive Metabolic Pane dilip 09-17-2022 Albumin [Mass/Vol] 3.5 g/dL Normal 3.5-5.[address] [facility] Comment on above: Performed By: #### L IPID, MG, CMP, HS TROP #### [address] Albumin/Globulin [Mass ratio] 1.6 {ratio} Normal [facility] Comment on above: Performed By: #### L IPID, MG, CMP, HS TROP #### [address] ALP [Catalytic activity/Vol] 47 U/L Normal 34-104 [facility] Comment on above: Performed By: #### L IPID, MG, CMP, HS TROP #### [address] ALT [Catalytic activity/Vol] 40 U/L Normal 7-52 [facility] Comment on above: Performed By: #### L IPID, MG, CMP, HS TROP #### [address] Anion gap [Moles/Vol] 9.3 mmol/L Normal 6.0-15.0 [facility] Comment on above: Performed By: #### L IPID, MG, CMP, HS TROP #### [facility] [address] AST [Catalytic activity/Vol] 23 U/L Normal 13-39 [facility] Comment on above: Performed By: #### L IPID, MG, CMP, HS TROP #### [facility] [address] Bilirubin [Mass/Vol] 0.7 mg/dL Normal 0.3-1.0 [facility] Comment on above: Performed By: #### L IPID, MG, CMP, HS TROP #### [facility] [address] Calcium [Mass/Vol] 8.8 mg/dL Normal 8.6-10.[address] [facility] Comment on above: Performed By: #### L IPID, MG, CMP, HS TROP #### [facility] [address] [place] [address] [place] Chloride [Moles/Vol] 115 mmol/L High 98-107 [facility] Comment on above: Performed By: #### L IPID, MG, CMP, HS TROP #### [facility] [address] [place] [address] [place] CO2 [Moles/Vol] 23.3 mmol/L Normal 21.0-31.0 [facility] Comment on above: Performed By: #### L IPID, MG, CMP, HS TROP #### [facility] [address] [place] [address] [place] Creatinine [Mass/Vol] 0.54 mg/dL Low 0.60-1.20 [facility] Comment on above: Performed By: #### L IPID, MG, CMP, HS TROP #### [facility] [address] [place] [address] [place] Creatinine Clr Calc Pharmacy 96.23 [facility] Comment on above: Performed By: #### L IPID, MG, CMP, HS TROP #### [facility] [address] [place] [address] [place] GFR/1.73 sq M.predicted MDRD (S/P/Bld) [Vol rate/Area] mL/min/{1.73_m2} Normal [facility] Comment on above: Performed By: #### L IPID, MG, CMP, HS TROP #### [facility] [address] Globulin (S) [Mass/Vol] 2.2 g/dL Normal [facility] Comment on above: Performed By: #### L IPID, MG, CMP, HS TROP #### [facility] [address] [place] [address] Glucose [Mass/Vol] 86 mg/dL Normal 74-[address] [facility] Comment on above: Result Comment: [facility] Glucose Reference Range is dependent on time and content of last meal. Glucose of more than 200 mg/dL in a nonstressed, ambulatory subject supports the diagnosis of Diabetes Mellitus. ADA recommended reference range Performed By: #### L IPID, MG, CMP, HS TROP #### [facility] [address] [place] [address] Potassium [Moles/Vol] 3.6 mmol/L Normal 3.5-5.1 [facility] Comment on above: Performed By: #### L IPID, MG, CMP, HS TROP #### [facility] [address] [place] [address] Protein [Mass/Vol] 5.7 g/dL Low 6.4-8.[address] [facility] Comment on above: Performed By: #### L IPID, MG, CMP, HS TROP #### [facility] [address] [place] [address] [place] Sodium [Moles/Vol] 144 mmol/L Normal 136-[address] [facility] Comment on above: Performed By: #### L IPID, MG, CMP, HS TROP #### [facility] [address] [place] [address] Urea nitrogen [Mass/Vol] 19 mg/dL Normal 7-25 [facility] Comment on above: Performed By: #### L IPID, MG, CMP, HS TROP #### [facility] [address] [place] [address] [place] Creatinine [Mass/volume] in Serum or PlasmaOrdered By: Arjun Layton on 09-17-2022 Creatinine [Mass/Vol] 0.54 mg/dL 0.60-1.20 [facility] Eosinophils Auto (Bld) [#/Vo l]Ordered By: Carlos Alberto Jackson on 09-17-2022 Eosinophils (Bld) [#/Vol] 0.0 10*3/uL 0.0-0.45 [facility] Eosinophils/100 WBC Auto (Bl d)Ordered By: Carlos Alberto Jackson on 09-17-2022 Eosinophils/100 WBC (Bld) 1.1 % . [facility] Erythrocyte distribution wid th Auto (RBC) [Ratio]Ordered By: Carlos Alberto Jackson on 09-17-2022 Erythrocyte distribution width (RBC) [Ratio] 14.0 % 11.9-15.3 [facility] Globulin Calc (S) [Mass/Vol] Ordered By: Arjun Layton on 09-17-2022 Globulin (S) [Mass/Vol] 2.2 g/dL [facility] Glucose [Mass/volume] in Ser um or PlasmaOrdered By: Arjun Layton on 09-17-2022 Glucose [Mass/Vol] 86 mg/dL 74-[address] [facility] Comment on above: ADA recommended refe rence rangeRandom Glucose Reference Range is dependent on time and content of last meal. Glucose of more than 200 mg/dL in a nonstressed, ambulatory subject supports the diagnosis of Diabetes Mellitus. Hematocrit Auto (Bld) [Volum e fraction]Ordered By: Carlos Alberto Jackson on 09-17-2022 Hematocrit (Bld) [Volume fraction] 38.3 % 34.0-46.4 [facility] Hemoglobin [Mass/volume] in BloodOrdered By: Carlos Alberto Jackson on 09-17-2022 Hemoglobin (Bld) [Mass/Vol] 12.9 g/dL 11.8-15.4 [facility] Laboratory - Chemistry and C hemistry - challengeOrdered By: Arjun Layton on 09-17-2022 GFR/1.73 sq M.predicted MDRD (S/P/Bld) [Vol rate/Area] mL/min/{1.73_m2} [facility] - CoagulationOrde red By: Carlos Alberto Jackson on 09-17-2022 PT Coag (PPP) [Time] 12.0 s 9.0-12.9 [facility] Leukocytes [#/volume] correc grisel for nucleated erythrocytes in Blood by Automated counOrdered By: Carlos Alberto Jackson on 09-17-2022 WBC corrected for nucl RBC Auto (Bld) [#/Vol] 4.0 10*3/uL 3.8-11.6 [facility] Lipid Panelon 09-17-2022 Cholesterol [Mass/Vol] 179 mg/dL Normal 140-200 [facility] Comment on above: Result Comment: Chol less than 200 mg/dl low risk Chol 201-239 mg/dl borderline risk Chol 240 mg/dl and greater high risk Performed By: #### L IPID, MG, CMP, HS TROP #### [facility] [address] Cholesterol in HDL [Mass/Vol] 74 mg/dL Normal 35-85 [facility] Comment on above: Result Comment: HDL CHOL ATP-III CLASSIFICATION Cardiovascular Risk HDL > or equal to 60 mg/dL LOW HDL < 40 mg/dL HIGH Performed By: #### L IPID, MG, CMP, HS TROP #### [facility] [address] Cholesterol.total/Chol esterol in HDL [Mass ratio] 2.4 {ratio} Normal <5.0 [facility] Comment on above: Result Comment: PERF ORMED BY: [place] [address] PATHOLOGIST EXECUTIVE VICE PRESIDENT BUSINESS DEVELOPMENT MEHDI ESPARZA M.D. Performed By: #### L IPID, MG, CMP, HS TROP #### [facility] [address] LDL Cholesterol,Calculated 80 mg/dL Normal 0-100 [facility] Comment on above: Result Comment: LDL ATP III CLASSIFICATION LDL less than 100 mg/dL Optimal LDL 100-129 mg/dL Near or above optimal LDL 130-159 mg/dL Borderline high LDL 160-189 mg/dL High LDL greater than 189 mg/dL Very high Performed By: #### L IPID, MG, CMP, HS TROP #### [facility] [address] Triglyceride w/Reflex 126 mg/dL Normal 0-149 [facility] Comment on above: Result Comment: TRIG ATP III CLASSIFICATION TRIG less than 150 mg/dL Normal TRIG 150-199 mg/dL Borderline high TRIG 200-500 mg/dL High TRIG greater than 500 mg/dL Very high Standard traceable to the Center for Disease Conrtrol and Prevention (CDC) test method. Performed By: #### L IPID, MG, CMP, HS TROP #### [facility] [address] VLDL CHOLESTEROL 25 mg/dL Normal [facility] Comment on above: Performed By: #### L IPID, MG, CMP, HS TROP #### [facility] [address] Lymphocytes Auto (Bld) [#/Vo l]Ordered By: Carlos Alberto Jackson on 09-17-2022 Lymphocytes (Bld) [#/Vol] 1.4 10*3/uL 1.00-4.8 [facility] Lymphocytes/100 WBC Auto (Bl d)Ordered By: Carlos Alberto Jackson on 09-17-2022 Lymphocytes/100 WBC (Bld) 36.2 % . [facility] MCH Auto (RBC) [Entitic mass ]Ordered By: Carlos Alberto Jackson on 09-17-2022 MCH (RBC) [Entitic mass] 31.2 pg 24.7-34.3 [facility] MCHC Auto (RBC) [Mass/Vol]Or dered By: Carlos Alberto Jackson on 09-17-2022 MCHC (RBC) [Mass/Vol] 33.7 g/dL 32.0-35.0 [facility] MCV Auto (RBC) [Entitic vol] Ordered By: Carlos Alberto Jackson on 09-17-2022 MCV (RBC) [Entitic vol] 92.7 fL 80-100 [facility] Magnesiumon 09-17-2022 Magnesium [Mass/Vol] 1.8 mg/dL Low 1.9-2.7 [facility] Comment on above: Performed By: #### L IPID, MG, CMP, HS TROP #### [facility] [address] Magnesium [Mass/volume] in S girish or PlasmaOrdered By: Arjun Grabielmatias on 09-17-2022 Magnesium [Mass/Vol] 1.8 mg/dL 1.9-2.7 [facility] Monocytes Auto (Bld) [#/Vol] Ordered By: Carlos Alberto Jackson on 09-17-2022 Monocytes (Bld) [#/Vol] 0.2 10*3/uL 0.0-0.8 [facility] Monocytes/100 WBC Auto (Bld) Ordered By: Carlos Alberto Jackson on 09-17-2022 Monocytes/100 WBC (Bld) 5.5 % . [facility] Neutrophils Auto (Bld) [#/Vo l]Ordered By: Carlos Alberto Jackson on 09-17-2022 Neutrophils (Bld) [#/Vol] 2.3 10*3/uL 1.8-7.7 [facility] Neutrophils/100 WBC Auto (Bl d)Ordered By: Carlos Alberto Jackson on 09-17-2022 Neutrophils/100 WBC (Bld) 56.8 % . [facility] No Panel InformationOrdered By: Arjun Layton on 09-17-2022 Pharmacy Creatinine Clearance (Chem 96.23 [facility] Nucleated erythrocytes [Pres ence] in Blood by Automated countOrdered By: Carlos Alberto Jackson on 09-17-2022 Nucleated RBC Auto Ql (Bld) 0.0 /100{WBC} 0-0.5 [facility] Partial Thromboplastin Timeo n 09-17-2022 aPTT Coag (Bld) [Time] 70.0 s High 25.1-36.5 [facility] Comment on above: Order Comment: Comme nt Obtain PTT 6 HRS after start of Heparin changes Result Comment: PERF ORMED BY: [place] [address] PATHOLOGIST EXECUTIVE VICE PRESIDENT BUSINESS DEVELOPMENT MEHDI ESPARZA M.D. Performed By: #### B MP, HS TROP, PTT, CK, PT, CBC, BNP #### [facility] [address] [place] [address] [place] aPTT Coag (Bld) [Time] 27.4 s Normal 25.1-36.5 [facility] Comment on above: Result Comment: PERF ORMED BY: [facility] [address] [place] [address] PATHOLOGIST EXECUTIVE VICE PRESIDENT BUSINESS DEVELOPMENT MEHDI ESPARZA M.D. Performed By: #### B MP, HS TROP, PTT, CK, PT, CBC, BNP #### [facility] [address] Platelet mean volume Auto (B ld) [Entitic vol]Ordered By: Carlos Alberto Jackson on 09-17-2022 Platelet mean volume (Bld) [Entitic vol] 7.5 fL 6.3-10.7 [facility] Platelet poor plasma interna tional normalized ratio (INR) by coagulation assay (relatOrdered By: Carlos Alberto Jackson on 09-17-2022 INR Coag (PPP) [Relative time] 1.0 {INR} [facility] Comment on above: INR Therapeutic Rang e A) Pre- and Peroperative OAT started two weeks before surgery. NOT HIP SURGERY: 1.5 - 2.5 HIP SURGERY: 2 - 3B) Primary and secondary prevention of venous THROMBOSIS: 2 - 3C) Active venous thrombosis, pulmonary embolismand prevention of recurrent venous thrombosis: 2 - 3D) Prevention of arterial thromboembolismincluding patients with mechanical heart valves: 3 - 4.5 Platelets Auto (Bld) [#/Vol] Ordered By: Carlos Alberto Jackson on 09-17-2022 Platelets (Bld) [#/Vol] 160 10*3/uL 150-450 [facility] Potassium [Moles/volume] in Serum or PlasmaOrdered By: Arjun Layton on 09-17-2022 Potassium [Moles/Vol] 3.6 mmol/L 3.5-5.1 [facility] Protein [Mass/volume] in Ser um or PlasmaOrdered By: Arjun Layton on 09-17-2022 Protein [Mass/Vol] 5.7 g/dL 6.4-8.[address] [facility] Prothrombin Time INRon 09-17 INR Coag (PPP) [Relative time] 1.0 {INR} Normal [facility] Comment on above: Result Comment: INR Therapeutic Range A) Pre- and Peroperative OAT started two weeks before surgery. NOT HIP SURGERY: 1.5 - 2.5 HIP SURGERY: 2 - 3 B) Primary and secondary prevention of venous THROMBOSIS: 2 - 3 C) Active venous thrombosis, pulmonary embolism and prevention of recurrent venous thrombosis: 2 - 3 D) Prevention of arterial thromboembolism including patients with mechanical heart valves: 3 - 4.5 Performed By: #### B MP, HS TROP, PTT, CK, PT, CBC, BNP #### [facility] [address] PT Coag (PPP) [Time] 12.0 s Normal 9.0-12.9 [facility] Comment on above: Performed By: #### B MP, HS TROP, PTT, CK, PT, CBC, BNP #### [facility] [address] RBC Auto (Bld) [#/Vol]Ordere d By: Carlos Alberto Jackson on 09-17-2022 RBC (Bld) [#/Vol] 4.13 10*6/uL 3.60-5.00 [facility] Serum or plasma albumin/glob ulin mass ratioOrdered By: Arjun Layton on 09-17-2022 Albumin/Globulin [Mass ratio] 1.6 {ratio} [facility] Serum or plasma anion gap de terminationOrdered By: Arjun Layton on 09-17-2022 Anion gap [Moles/Vol] 9.3 mmol/L 6.0-15.0 [facility] Serum or plasma high density lipoprotein (HDL) cholesterol measurementOrdered By: Arjun Layton on 09-17-2022 Cholesterol in HDL [Mass/Vol] 74 mg/dL 35-85 [facility] Comment on above: HDL CHOL ATP-III CLA SSIFICATION Cardiovascular RiskHDL > or equal to 60 mg/dL LOWHDL < 40 mg/dL HIGH Serum or plasma total choles terol/high density lipoprotein (HDL) cholesterol mass ratOrdered By: Arjun Layton on 09-17-2022 Cholesterol.total/Chol esterol in HDL [Mass ratio] 2.4 {ratio} <5.0 [facility] Sodium [Moles/volume] in Ser um or PlasmaOrdered By: Arjun Layton on 09-17-2022 Sodium [Moles/Vol] 144 mmol/L 136-[address] [facility] Triglyceride [Mass/volume] i n Serum or PlasmaOrdered By: Arjun Layton on 09-17-2022 Triglyceride [Mass/Vol] 126 mg/dL 0-149 [facility] Comment on above: TRIG ATP III CLASSIF ICATIONTRIG less than 150 mg/dL NormalTRIG 150-199 mg/dL Borderline highTRIG 200-500 mg/dL High TRIG greater than 500 mg/dL Very highStandard traceable to the Center for Disease Conrtrol and Prevention (CDC) test method. Troponin I High Sensitivityo n 09-17-2022 Troponin I High Sensitivity 98.3 pg/mL Off scale high 0.0-15.0 [facility] Comment on above: Result Comment: Crit ical Result : Called to and read back by: LYN MCKENZIE at: 09/17/2022 06:12:17 by:[id number] PERFORMED BY: [place] [address] PATHOLOGIST EXECUTIVE VICE PRESIDENT BUSINESS DEVELOPMENT MEHDI ESPARZA M.D. Performed By: #### B MP, HS TROP, PTT, CK, PT, CBC, BNP #### [address] Troponin I.cardiac [Mass/vol ume] in Serum or Plasma by Detection limit <= 0.01 ng/Ordered By: Arjun Layton on 09-17-2022 Troponin I.cardiac DL <= 0.01 ng/mL [Mass/Vol] 98.3 pg/mL 0.0-15.0 [facility] Comment on above: Critical Result : Ca lled to and read back by: LNY MCKENZIE at: 09/17/2022 06:12:17 by:[id number] Urea nitrogen [Mass/volume] in Serum or PlasmaOrdered By: Arjun Layton on 09-17-2022 Urea nitrogen [Mass/Vol] 19 mg/dL 7-25 [facility] WBC Auto (Bld) [#/Vol]Ordere d By: Carlos Alberto Jackson on 09-17-2022 WBC (Bld) [#/Vol] 4.0 10*3/uL 3.8-11.[address] [facility] BNPon 09-16-2022 Natriuretic peptide B (Bld) [Mass/Vol] 430.0 pg/mL Normal <=900.0 [facility] Comment on above: Performed By: #### A ST, LIPID, ALT #### [facility] [address] [address] [address] Carrie Gan Basic Metabolic Panelon 09-02 Anion gap [Moles/Vol] 8.7 mmol/L Normal 6.0-15.0 [facility] Comment on above: Performed By: #### B MP, HS TROP, PTT, CK, PT, CBC, BNP #### [facility] [address] Calcium [Mass/Vol] 8.9 mg/dL Normal 8.6-10.[address] [facility] Comment on above: Performed By: #### B MP, HS TROP, PTT, CK, PT, CBC, BNP #### [facility] [address] [place] [address] [place] Chloride [Moles/Vol] 112 mmol/L High 98-107 [facility] Comment on above: Performed By: #### B MP, HS TROP, PTT, CK, PT, CBC, BNP #### [facility] [address] [place] [address] [place] CO2 [Moles/Vol] 23.3 mmol/L Normal 21.0-31.0 [facility] Comment on above: Performed By: #### B MP, HS TROP, PTT, CK, PT, CBC, BNP #### [facility] [address] [place] [address] [place] Creatinine [Mass/Vol] 0.62 mg/dL Normal 0.60-1.20 [facility] Comment on above: Performed By: #### B MP, HS TROP, PTT, CK, PT, CBC, BNP #### [facility] [address] [place] [address] Creatinine Clr Calc Pharmacy 83.81 [facility] Comment on above: Result Comment: PERF ORMED BY: [place] [address] PATHOLOGIST EXECUTIVE VICE PRESIDENT BUSINESS DEVELOPMENT MEHDI ESPARZA M.D. Performed By: #### B MP, HS TROP, PTT, CK, PT, CBC, BNP #### [address] GFR/1.73 sq M.predicted MDRD (S/P/Bld) [Vol rate/Area] mL/min/{1.73_m2} [facility] Comment on above: Performed By: #### B MP, HS TROP, PTT, CK, PT, CBC, BNP #### [address] Glucose [Mass/Vol] 104 mg/dL Normal 74-[address] [facility] Comment on above: Result Comment: [facility] Glucose Reference Range is dependent on time and content of last meal. Glucose of more than 200 mg/dL in a nonstressed, ambulatory subject supports the diagnosis of Diabetes Mellitus. ADA recommended reference range Performed By: #### B MP, HS TROP, PTT, CK, PT, CBC, BNP #### [facility] [address] [place] [address] Potassium [Moles/Vol] 4.0 mmol/L Normal 3.5-5.1 [facility] Comment on above: Performed By: #### B MP, HS TROP, PTT, CK, PT, CBC, BNP #### [address] Sodium [Moles/Vol] 140 mmol/L Normal 136-[address] [facility] Comment on above: Performed By: #### B MP, HS TROP, PTT, CK, PT, CBC, BNP #### [address] Urea nitrogen [Mass/Vol] 19 mg/dL Normal 7-25 [facility] Comment on above: Performed By: #### B MP, HS TROP, PTT, CK, PT, CBC, BNP #### [facility] [address] [id number] [facility] CARDIAC ANNETTE 3-6on 3 CK [Catalytic activity/Vol] 48 U/L Normal 26-192 [facility] Comment on above: Performed By: #### A ST, LIPID, ALT #### [facility] [address] [address] [address] Carrie Gan CK.MB [Mass/Vol] 1.01 ng/mL Normal <=3.60 [facility] Comment on above: Performed By: #### A ST, LIPID, ALT #### [facility] [address] [address] [address] Carrie Gan HSTROP 152.1 pg/mL Critically high 4.0-51.3 [facility] Comment on above: Result Comment: CUT- OFF POINTS HAVE BEEN ESTABLISHED BASED ON THE FOURTH UNIVERSAL DEFINITIONS OF MYOCARDIAL INFARCTION. THE UPPER REFERENCE LIMIT (URL) OF TROPONIN, DEFINED THE 99TH PERCENTILE OF cTnI DISTRIBUTION IN A REFERENCE POPULATION, HAS BEEN CONFIRMED THE DECISION THRESHOLD FOR [place] DIAGNOSIS. Performed By: #### A ST, LIPID, ALT #### [facility] [address] [address] [address] Carrie Gan CBC AUTO DIFFon 09-16-2022 BASO # 0.0 103/ul Normal 0.0-0.1 [facility] Comment on above: Performed By: #### A ST, LIPID, ALT #### [facility] [address] [address] [address] Carrie Gan Basophils/100 WBC (Bld) 0.3 % Normal 0.2-2.0 [facility] Comment on above: Performed By: #### A ST, LIPID, ALT #### [facility] [address] [address] [address] Carrie Gan EO # 0.0 103/ul Normal 0.0-0.7 [facility] Comment on above: Performed By: #### A ST, LIPID, ALT #### [facility] [address] [address] [address] Carrie Gan Eosinophils/100 WBC (Bld) 0.7 % Critically low 0.9-7.0 [facility] Comment on above: Performed By: #### A ST, LIPID, ALT #### [facility] [address] [place] [address] Dr. Carrie Gan Erythrocyte distribution width (RBC) [Ratio] 13.6 % Normal 11.0-15.0 [facility] Comment on above: Performed By: #### A ST, LIPID, ALT #### [facility] [address] [place] [address] Dr. Carrie Gan Hematocrit (Bld) [Volume fraction] 45.2 % Normal 36.0-48.0 [facility] Comment on above: Performed By: #### A ST, LIPID, ALT #### [facility] [address] [place] [address] Dr. Carrie Gan Hemoglobin (Bld) [Mass/Vol] 15.2 g/dL Normal 12.0-16.0 [facility] Comment on above: Performed By: #### A ST, LIPID, ALT #### [facility] [address] [place] [address] Dr. Carrie Gan IG # 0.01 10e3/ul Normal 0.00-0.03 [facility] Comment on above: Performed By: #### A ST, LIPID, ALT #### [facility] [address] [place] [address] Dr. Carrie Gan IG % 0.2 % Normal 0.0-0.5 [facility] Comment on above: Performed By: #### A ST, LIPID, ALT #### [facility] [address] [place] [address] Dr. Carrie Gan LYMPH # 1.8 103/ul Normal 1.2-3.8 [facility] Comment on above: Performed By: #### A ST, LIPID, ALT #### [facility] [address] [place] [address] Dr. Carrie Gan Lymphocytes/100 WBC (Bld) 30.2 % Normal 20.5-60.0 [facility] Comment on above: Performed By: #### A ST, LIPID, ALT #### [facility] [address] [place] [address] Dr. Carrie Gan MANUAL DIFF REQ NO Normal [facility] Comment on above: Performed By: #### A ST, LIPID, ALT #### [facility] [address] [place] [address] Dr. Carrie Gan MCH (RBC) [Entitic mass] 30.8 pg Normal 26.7-34.0 [facility] Comment on above: Performed By: #### A ST, LIPID, ALT #### [facility] [address] [place] [address] Dr. Carrie Gan MCHC (RBC) [Mass/Vol] 33.6 g/dL Normal 29.9-35.2 [facility] Comment on above: Performed By: #### A ST, LIPID, ALT #### [facility] [address] [place] [address] Dr. Carrie Gan MCV (RBC) [Entitic vol] 91.5 fL Normal 81.0-99.0 [facility] Comment on above: Performed By: #### A ST, LIPID, ALT #### [facility] [address] [place] [address] Dr. Carrie Gan MONO # 0.4 103/ul Normal 0.3-0.8 [facility] Comment on above: Performed By: #### A ST, LIPID, ALT #### [facility] [address] [place] [address] Dr. Carrie Gan Monocytes/100 WBC (Bld) 5.9 % Normal 1.7-12.0 [facility] Comment on above: Performed By: #### A ST, LIPID, ALT #### [facility] [address] [place] [address] Dr. Carrie Gan NEUT # 3.7 103/ul Normal 1.4-6.5 [facility] Comment on above: Performed By: #### A ST, LIPID, ALT #### [facility] [address] [place] [address] Dr. Carrie Gan Neutrophils/100 WBC (Bld) 62.7 % Normal 43.0-75.0 [facility] Comment on above: Performed By: #### A ST, LIPID, ALT #### [facility] [address] [address] [address] Carrie Gan Platelet mean volume (Bld) [Entitic vol] 9.5 fL Normal 9.5-13.5 [facility] Comment on above: Performed By: #### A ST, LIPID, ALT #### [facility] [address] [address] [address] Carrie Gan PLT 182 103/ul Normal 150-450 [facility] Comment on above: Performed By: #### A ST, LIPID, ALT #### [facility] [address] [address] [address] Carrie Gan RBC 4.94 106/ul Normal 4.20-5.40 [facility] Comment on above: Performed By: #### A ST, LIPID, ALT #### [facility] [address] [address] [address] Carrie Gan WBC 5.9 103/ul Normal 4.0-11.0 [facility] Comment on above: Performed By: #### A ST, LIPID, ALT #### [facility] [address] [address] [address] Carrie Gan Complete Blood Count Auto Di ffon 09-16-2022 Basophils (Bld) [#/Vol] 0.0 10*3/uL Normal 0.0-0.2 [facility] Comment on above: Result Comment: PERF ORMED BY: [place] [address] PATHOLOGIST EXECUTIVE VICE PRESIDENT BUSINESS DEVELOPMENT MEHDI ESPARZA M.D. Performed By: #### B MP, HS TROP, PTT, CK, PT, CBC, BNP #### [facility] [address] [place] [address] [place] Basophils/100 WBC (Bld) 0.6 % Normal . [facility] Comment on above: Performed By: #### B MP, HS TROP, PTT, CK, PT, CBC, BNP #### [facility] [address] [place] [address] [place] Eosinophils (Bld) [#/Vol] 0.0 10*3/uL Normal 0.0-0.45 [facility] Comment on above: Performed By: #### B MP, HS TROP, PTT, CK, PT, CBC, BNP #### [address] Eosinophils/100 WBC (Bld) 1.0 % Normal . [facility] Comment on above: Performed By: #### B MP, HS TROP, PTT, CK, PT, CBC, BNP #### [address] Erythrocyte distribution width (RBC) [Ratio] 14.2 % Normal 11.9-15.3 [facility] Comment on above: Performed By: #### B MP, HS TROP, PTT, CK, PT, CBC, BNP #### [address] Hematocrit (Bld) [Volume fraction] 40.6 % Normal 34.0-46.4 [facility] Comment on above: Performed By: #### B MP, HS TROP, PTT, CK, PT, CBC, BNP #### [address] Hemoglobin (Bld) [Mass/Vol] 13.5 g/dL Normal 11.8-15.4 [facility] Comment on above: Performed By: #### B MP, HS TROP, PTT, CK, PT, CBC, BNP #### [address] Lymphocytes (Bld) [#/Vol] 2.2 10*3/uL Normal 1.00-4.8 [facility] Comment on above: Performed By: #### B MP, HS TROP, PTT, CK, PT, CBC, BNP #### [address] Lymphocytes/100 WBC (Bld) 45.1 % Normal . [facility] Comment on above: Performed By: #### B MP, HS TROP, PTT, CK, PT, CBC, BNP #### [address] MCH (RBC) [Entitic mass] 30.9 pg Normal 24.7-34.3 [facility] Comment on above: Performed By: #### B MP, HS TROP, PTT, CK, PT, CBC, BNP #### [address] MCV (RBC) [Entitic vol] 93.2 fL Normal 80-100 [facility] Comment on above: Performed By: #### B MP, HS TROP, PTT, CK, PT, CBC, BNP #### [address] Mean Corpuscular HGB Conc 33.2 g/dL Normal 32.0-35.0 [facility] Comment on above: Performed By: #### B MP, HS TROP, PTT, CK, PT, CBC, BNP #### [address] Monocytes (Bld) [#/Vol] 0.3 10*3/uL Normal 0.0-0.8 [facility] Comment on above: Performed By: #### B MP, HS TROP, PTT, CK, PT, CBC, BNP #### [address] Monocytes/100 WBC (Bld) 5.6 % Normal . [facility] Comment on above: Performed By: #### B MP, HS TROP, PTT, CK, PT, CBC, BNP #### [address] Neutrophils (Bld) [#/Vol] 2.3 10*3/uL Normal 1.8-7.7 [facility] Comment on above: Performed By: #### B MP, HS TROP, PTT, CK, PT, CBC, BNP #### [address] Neutrophils/100 WBC (Bld) 47.7 % Normal . [facility] Comment on above: Performed By: #### B MP, HS TROP, PTT, CK, PT, CBC, BNP #### [address] [address] [place] NRBC% 0.2 /100{WBC} Normal 0-0.5 [facility] Comment on above: Performed By: #### B MP, HS TROP, PTT, CK, PT, CBC, BNP #### [address] Platelet mean volume (Bld) [Entitic vol] 7.7 fL Normal 6.3-10.7 [facility] Comment on above: Performed By: #### B MP, HS TROP, PTT, CK, PT, CBC, BNP #### [address] Platelets (Bld) [#/Vol] 161 10*3/uL Normal 150-450 [facility] Comment on above: Performed By: #### B MP, HS TROP, PTT, CK, PT, CBC, BNP #### [address] RBC (Bld) [#/Vol] 4.36 10*6/uL Normal 3.60-5.00 [facility] Comment on above: Performed By: #### B MP, HS TROP, PTT, CK, PT, CBC, BNP #### [address] WBC (Bld) [#/Vol] 4.9 10*3/uL Normal 3.8-11.[address] [facility] Comment on above: Performed By: #### B MP, HS TROP, PTT, CK, PT, CBC, BNP #### [address] Covid-19 PCR (CVDTB)on 09-02 SARS-CoV-2 (COVID-19) RNA HANSEL+probe Ql (Unsp spec) Not detected Normal NOT DETECTED [facility] Comment on above: Result Comment: When diagnostic testing is negative, the possibility of a false negative should be considered in the context of a patient's recent exposures and the presence of clinical signs and symptoms consistent with SARS-CoV-2. This test is not yet approved or cleared by the [place] FDA. When there are no FDA-approved or cleared tests available, and other criteria are met, FDA can make tests available under an emergency access mechanism called an Emergency Use Authorization (EUA). The EUA for this test is supported by the [place] of Health and Human Service's declaration that circumstances exist to justify the emergency use of in vitro diagnostics for the detection and/or diagnosis of the virus that causes COVID-19. This EUA will remain in effect for the duration of the COVID-19 declaration justifying emergency of IVDs, unless it is terminated or revoked by the FDA (after which the test may no longer be used). Performed By: #### L ACT #### [facility] [address] [place] [address] Dr. Carrie Gan D-DIMERon 09-16-2022 D-DIMER 0.39 mg/L FEU Normal <=0.59 [facility] Comment on above: Performed By: #### D DIM #### [facility] [address] [place] [address] Dr. Carrie Gan D-DIMER COMMENTS SEE BELOW Normal [facility] Comment on above: Result Comment: Incr eases in D-Dimer concentration observed with thromboembolic events can be variable due to localization, size, and age of the thrombus. Therefore, a thromboembolic event cannot be diagnosed with certainty on the basis of the reference range. D-Dimers may also be elevated for a variety of disorders including: advanced age, , coronary disease, cancer, liver disease, infection, inflammation, hematoma, DIC, trauma, post-surgery, diabetes, thrombolytic or anticoagulant therapy, stress, and generalized hospitalization. Performed By: #### D DIM #### [facility] [address] [place] [address] Dr. Carrie Gan PROF 14(COMP METB)on 023 Albumin [Mass/Vol] 3.9 g/dL Normal 3.4-5.0 [facility] Comment on above: Performed By: #### A ST, LIPID, ALT #### [facility] [address] [place] [address] Dr. Carrie Gan Albumin/Globulin [Mass ratio] 1.1 {ratio} Normal [facility] Comment on above: Performed By: #### A ST, LIPID, ALT #### [facility] [address] [address] [address] Carrie Gan ALP [Catalytic activity/Vol] 80 U/L Normal 46-116 [facility] Comment on above: Performed By: #### A ST, LIPID, ALT #### [facility] [address] [address] [address] Carrie Gan ALT [Catalytic activity/Vol] 86 U/L Critically high 14-59 [facility] Comment on above: Performed By: #### A ST, LIPID, ALT #### [facility] [address] [address] [address] Carrie Gan Anion gap [Moles/Vol] 7.4 mmol/L Normal [facility] Comment on above: Performed By: #### A ST, LIPID, ALT #### [facility] [address] [address] [address] Carrie Gan AST [Catalytic activity/Vol] 51 U/L Critically high 15-37 [facility] Comment on above: Performed By: #### A ST, LIPID, ALT #### [facility] [address] [address] [address] Carrie Gan Bilirubin [Mass/Vol] 0.7 mg/dL Normal 0.2-1.0 [facility] Comment on above: Performed By: #### A ST, LIPID, ALT #### [facility] [address] [address] [address] Carrie Gan Calcium [Mass/Vol] 9.3 mg/dL Normal 8.5-10.1 [facility] Comment on above: Performed By: #### A ST, LIPID, ALT #### [facility] [address] [address] [address] Carrie Gan Chloride [Moles/Vol] 109 mmol/L Critically high 98-107 [facility] Comment on above: Performed By: #### A ST, LIPID, ALT #### [facility] [address] [address] [address] Carrie Gan CO2 [Moles/Vol] 28.7 mmol/L Normal 21.0-32.0 [facility] Comment on above: Performed By: #### A ST, LIPID, ALT #### [facility] [address] [address] [address] Carrie Gan Creatinine [Mass/Vol] 0.77 mg/dL Normal 0.55-1.02 [facility] Comment on above: Performed By: #### A ST, LIPID, ALT #### [facility] [address] [address] [address] Carrie Gan EGFR-AF UZBEK >60 Normal >=60 [facility] Comment on above: Performed By: #### A ST, LIPID, ALT #### [facility] [address] [address] [address] Carrie Gan EGFR-NON AF UZBEK >60 Normal >=60 [facility] Comment on above: Performed By: #### A ST, LIPID, ALT #### [facility] [address] [address] [address] Carrie Gan Globulin (S) [Mass/Vol] 3.4 g/dL Normal [facility] Comment on above: Performed By: #### A ST, LIPID, ALT #### [facility] [address] [address] [address] Carrie Gan Glucose [Mass/Vol] 112 mg/dL Critically high 74-[address] [facility] Comment on above: Performed By: #### A ST, LIPID, ALT #### [facility] [address] [address] [address] Carrie Gan Potassium [Moles/Vol] 4.1 mmol/L Normal 3.5-5.1 [facility] Comment on above: Performed By: #### A ST, LIPID, ALT #### [facility] [address] [address] [address] Carrie Gan Protein [Mass/Vol] 7.3 g/dL Normal 6.4-8.2 [facility] Comment on above: Performed By: #### A ST, LIPID, ALT #### [facility] [address] [address] [address] Carrie Gan Sodium [Moles/Vol] 141 mmol/L Normal 136-145 [facility] Comment on above: Performed By: #### A ST, LIPID, ALT #### [facility] [address] [place] [address] Dr. Carrie Gan Urea nitrogen [Mass/Vol] 23.0 mg/dL Critically high 7.0-18.0 [facility] Comment on above: Performed By: #### A ST, LIPID, ALT #### [facility] [address] [place] [address] Dr. Carrie Gan Urea nitrogen/Creatinine [Mass ratio] 29.9 mg/mg Normal [facility] Comment on above: Performed By: #### A ST, LIPID, ALT #### [facility] [address] [place] [address] Dr. Carrie Gan PROTIMEon 09-16-2022 INR Coag (PPP) [Relative time] 0.97 {INR} Normal [facility] Comment on above: Performed By: #### A ST, LIPID, ALT #### [facility] [address] [place] [address] Dr. Carrie Gan INR GUIDELINES SEE BELOW Normal [facility] Comment on above: Result Comment: JIGNA RED INR: 2.0 - 3.0 CONDITIONS NOT LISTED BELOW 2.5 - 3.5 FOR PROSTHETIC HEART VALVE REPLACEMENT 2.5 - 3.5 RECURRENT THROMBOSIS Performed By: #### A ST, LIPID, ALT #### [facility] [address] [place] [address] Dr. Carrie Gan PT Coag (PPP) [Time] 10.3 s Normal 9.0-11.6 [facility] Comment on above: Performed By: #### A ST, LIPID, ALT #### [facility] [address] [place] [address] Dr. Carrie Gan PTTon 09-16-2022 aPTT Coag (Bld) [Time] 22.4 s Normal 22.3-36.2 Th [facility] Comment on above: Performed By: #### A ST, LIPID, ALT #### [facility] [address] [place] [address] Dr. Carrie Gan TROPONIN, HIGH SENSITIVITYon 09-16-2022 HSTROP 92.0 pg/mL Critically high 4.0-51.3 [facility] Comment on above: Result Comment: CUT- OFF POINTS HAVE BEEN ESTABLISHED BASED ON THE FOURTH UNIVERSAL DEFINITIONS OF MYOCARDIAL INFARCTION. THE UPPER REFERENCE LIMIT (URL) OF TROPONIN, DEFINED THE 99TH PERCENTILE OF cTnI DISTRIBUTION IN A REFERENCE POPULATION, HAS BEEN CONFIRMED THE DECISION THRESHOLD FOR [place] DIAGNOSIS. Performed By: #### A ST, LIPID, ALT #### [facility] [address] [place], [place] [address] Dr. Carrie Gan HSTROP 57.1 pg/mL Critically high 4.0-51.3 [facility] Comment on above: Result Comment: CUT- OFF POINTS HAVE BEEN ESTABLISHED BASED ON THE FOURTH UNIVERSAL DEFINITIONS OF MYOCARDIAL INFARCTION. THE UPPER REFERENCE LIMIT (URL) OF TROPONIN, DEFINED THE 99TH PERCENTILE OF cTnI DISTRIBUTION IN A REFERENCE POPULATION, HAS BEEN CONFIRMED THE DECISION THRESHOLD FOR [place] DIAGNOSIS. Performed By: #### A ST, LIPID, ALT #### [facility] [address] [address] [address] Carrie Gan TSHon 09-16-2022 TSH 7.109 uIU/mL Critically high 0.358-3.74 0 [facility] Comment on above: Performed By: #### A ST, LIPID, ALT #### [facility] [address] [place], [place] [address] Dr. Carrie Gan Troponin I High Sensitivityo n 09-16-2022 Troponin I High Sensitivity 147.8 pg/mL Off scale high 0.0-15.0 [facility] Comment on above: Result Comment: Crit ical Result : Called to and read back by: ABI GARCIA at: 09/16/2022 23:15:21 by:[id number] --- 09/16/227 --- Trop HS previously reported as: 147.8 *H pg/mL Critical Result : Called to and read back by: ABI GARCIA at: 09/16/2022 23:15:21 by:[id number] PERFORMED BY: [address] [place] [address] [place] [address] PATHOLOGIST EXECUTIVE VICE PRESIDENT BUSINESS DEVELOPMENT MEHDI ESPARZA M.D. Performed By: #### B MP, HS TROP, PTT, CK, PT, CBC, BNP #### [facility] [address] XR CHEST 1 Von 09-16-2022 XR CHEST 1 V EXAMINATION: XR CHES T 1 V HISTORY: CHEST PAIN, UNSPECIFIED COMPARISON: XR chest 12/12/2021 FINDINGS: LUNGS: No significant pulmonary parenchymal abnormalities. VASCULATURE: No increased pulmonary vasculature. PLEURA: No pneumothorax, effusion, or pleural thickening. CARDIAC: No cardiomegaly or cardiac silhouette abnormality. MEDIASTINUM: No visible mass or adenopathy. BONES: No fracture or visible bone lesion. OTHER: Negative. IMPRESSION: 1. No acute cardiopulmonary process. Electronically authenticated by: JACOB OJEDA Date: 2022-09-16 15:16 [facility] Visit ([facility] ) -- YARI DAILY ([id number]) 1965 F DEF Date Time Provider Department 09/08/22 1:20 PM CAMPBELL TRISTAN [facility] During your visit today, we recorded the following information about you: Weight Height 62.6 kg 1.6 m Campbell Tristan MD 09/08/2022 1:34 PM Signed Name: Yari Daily Assessment and Plan: 56 year old female, with PSH of multiple incisional hernia repair, laparoscopic gastric sleeve, complicated with gastric leak, take down open, and 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 Referred to us for surgical revision s/p Laparoscopic subtotal gastrectomy, Gastric fistula take down, EJ reconstruction 03/02. Presents today for her six months postoperative visit Doing well overall. Tolerating regular diet. Taking postop vitamins She does have a symptomatic incisional hernia that has been repaired in the past. Given the complexity of her surgical history I am going to refer her to one of my partners in the abdominal wall reconstruction section (Dr Marks). Will obtain vitamin levels as well Subjective/Interval Events: as above Objective: Ht 160 cm (5' 3 ) Wt 62.6 kg (138 lb) BMI 24.45 kg/m? Intake and Output: No intake/output data recorded. CBC BMP Physical exam: General: Awake, alert and oriented, NAD Neck: supple. Respiratory: Non-labored breathing Cardiac: HDS Abdomen: Soft, non-distended, non tender, midline reducible incisional hernia Campbell Tristan MD September 08, 2022 1:19 PM Referring Provider: CAMPBELL TRISTAN [[id number]] Allergies As of Date: 09/08/2022 Noted Allergy Reaction CODEINE 03/17/2016 10 - Anaphylaxis KEFLEX (CEPHALEXIN) 09/18/2016 4 - Hives 14 - Other: See Comments Comments: Peeling of skin. Has received multiple courses of piperacillin/tazobactam without noted reaction inpatient. Date Reviewed: 08/31/2022 Reviewed by: Sarah Gregory RD - Fully Assessed Reason for Visit: Post Op Follow Up [3947] Primary Visit Diagnosis:S/P bariatric surgery [Z98.84] Order(s):[] VITAMIN B12 BLOOD [SQB12] Order #: [id number] FUTURE [] VITAMIN D 25 HYDROXY [SQVITD] Order #: [id number] FUTURE [] IRON + TIBC [SQIRON] Order #: [id number] FUTURE [] FOLATE SERUM [SQSERFOL] Order #: [id number] FUTURE Prescriptions as of 02/09/2023 - oxyCODONE IR (ROXICODONE) 5 mg immediate release tablet Take 1 tablet by mouth every 6 hours as needed for pain. - tamsulosin (FLOMAX) 0.4 mg Take 1 capsule by mouth once daily for 3 days. - metoprolol succinate ER (TOPROL XL) 25 mg 24 hr tablet Takes 1/2 tablet - aspirin 81 mg chewable tablet Aspirin (Children's Aspirin) 81 mg Tablet,Chewable Active 81 MG PO Daily 90 90 September 18, 2022 12:00am - pravastatin (PRAVACHOL) 20 mg tablet - multivit-min/iron/folic acid/K (BARIATRIC MULTIVITAMINS ORAL) - FAMOTIDINE ORAL Take by mouth. - DODEX 1,000 mcg/mL inject 1 milliliter ( 1000 MCG ) intramuscularly EVERY 3 MONTHS Problem List As Of Date 09/08/2022 Noted Resolved COPD (chronic obstructive pulmonary disease) (H*06/23/2016 GAGE (obstructive sleep apnea) [G47.33] 06/23/2016 Hypothyroid [E03.9] 06/23/2016 Edema [R60.9] 06/23/2016 Abdominal wall seroma (HCC) [S30.1XXA] 07/09/2016 01/21/2017 Abdominal pain [R10.9] 07/17/2016 01/29/2017 Obesity, Class III, BMI >= 40 (morbid obesity) *11/27/2016 Abdominal wall seroma (HCC) [S30.1XXA] 01/27/2017 Postoperative seroma of subcutaneous tissue aft*02/08/2017 Inflammatory arthritis [M19.90] 07/03/2017 01/24/2018 Arthritis [M19.90] 07/04/2017 [place] [H10.029] 07/04/2017 07/06/2017 Reactive arthritis (HCC) [M02.30] 08/23/2017 01/24/2018 Pain in joint, multiple sites [M25.50] 08/23/2017 History of uveitis [Z86.69] 08/23/2017 Keratoderma [Q82.8] 04/28/2018 Gastric perforation (HCC) [K25.5] 12/13/2021 On total parenteral nutrition (TPN) [Z78.9] 12/13/2021 Dehydration [E86.0] 12/13/2021 Obesity, Class I, BMI 30-34.9 [E66.9] 12/13/2021 Mild protein-calorie malnutrition (HCC) [E44.1] 12/13/2021 Gastric leak [K91.89] 03/03/2022 Encounter Status:Closed by CAMPBELL TRISTAN on 09/08/22 [facility] FREE T4on 08-11-2022 Free T4 [Mass/Vol] 0.73 ng/dL Critically low 0.76-1.46 [facility] Comment on above: Performed By: #### F T4 #### [facility] [address] [address] [address] Carrie Gan LIPID PROFILEon 08-11-2022 CHOL-HDL RATIO NORM SEE BELOW Normal [facility] Comment on above: Result Comment: 3.3 - 4.4 LOW RISK 4.4 - 7.1 AVERAGE RISK 7.1 - 11.0 MODERATE RISK >11.0 HIGH RISK Performed By: #### L IPID, CMP, TSH #### [facility] [address] [address] [address] Carrie Gan Cholesterol [Mass/Vol] 202 mg/dL Critically high <=200 [facility] Comment on above: Performed By: #### L IPID, CMP, TSH #### [facility] [address] [address] [address] Carrie Gan Cholesterol in HDL [Mass/Vol] 94 mg/dL Critically high 40-60 [facility] Comment on above: Performed By: #### L IPID, CMP, TSH #### [facility] [address] [place] [address] Dr. Carrie Gan Cholesterol in LDL [Mass/Vol] 91.2 mg/dL Normal [facility] Comment on above: Performed By: #### L IPID, CMP, TSH #### [facility] [address] [place] [address] Dr. Carrie Gan Cholesterol.total/Chol esterol in HDL [Mass ratio] 2.1 {ratio} Normal [facility] Comment on above: Performed By: #### L IPID, CMP, TSH #### [facility] [address] [address] [address] Carrie Gan HDL NORMAL > or = 60 mg/dl - LO W CARDIOVASCULAR RISK <40 mg/dl - HIGH CARDIOVASCULAR RISK Normal [facility] Comment on above: Performed By: #### L IPID, CMP, TSH #### [facility] [address] [place] [address] Dr. Carrie Gan LDL CALC NORMAL SEE BELOW Normal [facility] Comment on above: Result Comment: <100 mg/dl OPTIMAL 100 - 129 mg/dl NEAR OR ABOVE OPTIMAL 130 - 159 mg/dl BORDERLINE HIGH 160 - 189 mg/dl HIGH >190 mg/dl VERY HIGH Performed By: #### L IPID, CMP, TSH #### [facility] [address] [place] [address] Dr. Carrie Gan Triglyceride [Mass/Vol] 84 mg/dL Normal <=150 [facility] Comment on above: Performed By: #### L IPID, CMP, TSH #### [facility] [address] [address] [address] Carrie Gan VLDL CALC 16.8 mg/dL Normal [facility] Comment on above: Performed By: #### L IPID, CMP, TSH #### [facility] [address] [place] [address] Dr. Carrie Gan PROF 14(COMP METB)on 023 Albumin [Mass/Vol] 3.8 g/dL Normal 3.4-5.0 [facility] Comment on above: Performed By: #### L IPID, CMP, TSH #### [facility] [address] [place] [address] Dr. Carrie Gan Albumin/Globulin [Mass ratio] 1.1 {ratio} Normal [facility] Comment on above: Performed By: #### L IPID, CMP, TSH #### [facility] [address] [place] [address] Dr. Carrie Gan ALP [Catalytic activity/Vol] 59 U/L Normal 46-116 [facility] Comment on above: Performed By: #### L IPID, CMP, TSH #### [facility] [address] [place] [address] Dr. Carrie Gan ALT [Catalytic activity/Vol] 32 U/L Normal 14-59 [facility] Comment on above: Performed By: #### L IPID, CMP, TSH #### [facility] [address] [place] [address] Dr. Carrie Gan Anion gap [Moles/Vol] 9.9 mmol/L Normal [facility] Comment on above: Performed By: #### L IPID, CMP, TSH #### [facility] [address] [place], [place] [id number] Dr. Carrie Gan AST [Catalytic activity/Vol] 14 U/L Critically low 15-37 [facility] Comment on above: Performed By: #### L IPID, CMP, TSH #### [facility] [address] [place] [address] Dr. Carrie Gan Bilirubin [Mass/Vol] 0.9 mg/dL Normal 0.2-1.0 [facility] Comment on above: Performed By: #### L IPID, CMP, TSH #### [facility] [address] [place] [address] Dr. Carrie Gan Calcium [Mass/Vol] 9.4 mg/dL Normal 8.5-10.1 [facility] Comment on above: Performed By: #### L IPID, CMP, TSH #### [facility] [address] [place] [address] Dr. Carrie Gan Chloride [Moles/Vol] 105 mmol/L Normal 98-107 [facility] Comment on above: Performed By: #### L IPID, CMP, TSH #### [facility] [address] [place] [address] Dr. Carrie Gan CO2 [Moles/Vol] 30.6 mmol/L Normal 21.0-32.0 [facility] Comment on above: Performed By: #### L IPID, CMP, TSH #### [facility] [address] [place] [address] Dr. Carrie Gan Creatinine [Mass/Vol] 0.63 mg/dL Normal 0.55-1.02 [facility] Comment on above: Performed By: #### L IPID, CMP, TSH #### [facility] [address] [place] [address] Dr. Carrie Gan EGFR-AF UZBEK >60 Normal >=60 [facility] Comment on above: Performed By: #### L IPID, CMP, TSH #### [facility] [address] [place] [address] Dr. Carrie Gan EGFR-NON AF UZBEK >60 Normal >=60 [facility] Comment on above: Performed By: #### L IPID, CMP, TSH #### [facility] [address] [address] [address] Carrie Gan Globulin (S) [Mass/Vol] 3.5 g/dL Normal [facility] Comment on above: Performed By: #### L IPID, CMP, TSH #### [facility] [address] [address] [address] Carrie Gan Glucose [Mass/Vol] 84 mg/dL Normal 74-106 [facility] Comment on above: Performed By: #### L IPID, CMP, TSH #### [facility] [address] [address] [address] Carrie Gan Potassium [Moles/Vol] 4.5 mmol/L Normal 3.5-5.1 [facility] Comment on above: Performed By: #### L IPID, CMP, TSH #### [facility] [address] [place] [address] Dr. Carrie Gan Protein [Mass/Vol] 7.3 g/dL Normal 6.4-8.2 [facility] Comment on above: Performed By: #### L IPID, CMP, TSH #### [facility] [address] [address] [address] Carrie Gan Sodium [Moles/Vol] 141 mmol/L Normal 136-145 [facility] Comment on above: Performed By: #### L IPID, CMP, TSH #### [facility] [address] [address] [address] Carrie Gan Urea nitrogen [Mass/Vol] 22.0 mg/dL Critically high 7.0-18.0 [facility] Comment on above: Performed By: #### L IPID, CMP, TSH #### [facility] [address] [place] [address] Dr. Carrie Gan Urea nitrogen/Creatinine [Mass ratio] 34.9 mg/mg Normal [facility] Comment on above: Performed By: #### L IPID, CMP, TSH #### [facility] [address] [address] [address] Carrie Gan TSHon 08-11-2022 TSH 11.855 uIU/mL Critically high 0.358-3.74 0 [facility] Comment on above: Performed By: #### L IPID, CMP, TSH #### [facility] [address] [address] [address] Carrie Gan TSH+FREE T4on 01-31-2022 Free T4 [Mass/Vol] 1.1 ng/dL Normal 0.8-1.8 [facility] Comment on above: Order Comment: FASTI NG:YES FASTING: YES Performed By: #### [id number] #### [facility] [address], [address] [place], [place] [id number] Rougher Operator: German Guzmán MD TSH Qn 12.55 m[IU]/L High [facility] Comment on above: Order Comment: FASTI NG:YES FASTING: YES Result Comment: Refe rence Range > or = 20 Years 0.40-4.50 Ranges First trimester 0.26-2.66 Second trimester 0.55-2.73 Third trimester 0.43-2.91 Performed By: #### 5 [id number] #### [facility] [address], [address] [place], [place] [id number] Rougher Operator: German Guzmán MD CT ABD/PELV W CONon 12-14-[address] ABD/PELV W CON EXAMINATION: CT ABD/ PELV W CON HISTORY: GENERALIZED ABDOMINAL PAIN COMPARISON: CT chest 04/10/2021, 08/03/2018 TECHNIQUE: Helical CT of abdomen and pelvis with intravenous contrast. Dose reduction techniques were achieved by using automated exposure control and/or adjustment of mA and/or kV according to patient size and/or use of iterative reconstruction technique. FINDINGS: TUBES AND IMPLANTS: None. LOWER CHEST: Unremarkable ABDOMEN and PELVIS ABDOMINAL WALL AND SOFT TISSUES: Ventral hernia containing a knuckle of large bowel with associated fat stranding. Postsurgical changes of prior hernia repair BONES: Multilevel degenerative changes of the spine. ARTERIES: No aortic aneurysm. VEINS: Unremarkable. LYMPH NODES: Prominent periportal and periaortic lymph nodes. PERITONEUM/ RETROPERITONEUM: There is an ill-defined soft tissue collection anterior to the gastric body which demonstrates foci of air, this is adjacent to a cystic intramural gastric body collection measuring up to 1.4 centimeters in thickness which appears to balloon out with air and appears continuous with the soft tissue collection. A second ill-defined soft tissue density collection which demonstrates foci of air which appears continuous with the gastric fundus. BOWEL: No obstruction. APPENDIX: Not identified. LIVER: Periportal edema with mild attenuation of the right and left portal veins which remain patent. Main portal vein appears patent. GALLBLADDER: Surgically absent BILE DUCTS: Not dilated SPLEEN: Heterogeneous attenuation PANCREAS: Pancreatic tail abuts the ill-defined collection adjacent to the gastric fundus. ADRENALS: Unremarkable. KIDNEYS/ URETERS: Unremarkable. REPRODUCTIVE ORGANS: Uterus appears surgically absent URINARY BLADDER: Unremarkable. IMPRESSION: 1. There is an ill-defined soft tissue collection anterior to the gastric body which demonstrates foci of air, this is adjacent to a cystic intramural gastric body collection measuring up to 1.4 centimeters in thickness which appears to balloon out with air and appears continuous with the soft tissue collection. A second ill-defined soft tissue density collection which demonstrates foci of air which appears continuous with the gastric fundus. These findings are concerning for perforation with possible abscesses. 2. Pancreatic tail abuts the ill-defined collection adjacent to the gastric fundus. 3. Periportal edema with mild attenuation of the right and left portal veins which remain patent. Main portal vein appears patent. 4. Ventral hernia containing a knuckle of large bowel with associated fat stranding. Critical result of gastric perforations were identified at 12:00 AM 12/13/[address] Flor Rodríguez MD to Dr. Annette Sinha At 12/13/2021 12:15 AM EDT. Result Electronically authenticated by: FLOR RODRÍGUEZ Date: 2021-12-13 00:20 Normal [facility] CULTURE BLOODon 12-13-2021 Microscopic examination of blood, culture Culture Observations: No growth at 5 days. Normal [facility] Comment on above: Performed By: #### A ST, LIPID, ALT #### [facility] [address] [address] [address] Carrie Gan Microscopic examination of blood, culture Culture Observations: No growth at 5 days. Normal [facility] Comment on above: Performed By: #### A ST, LIPID, ALT #### [facility] [address] [place], [place] [address] Dr. Carrie Gan Covid-19 PCR (CVDTBH)on 12-03 SARS-CoV-2 (COVID-19) RNA HANSEL+probe Ql (Unsp spec) Not detected Normal NOT DETECTED [facility] Comment on above: Result Comment: When diagnostic testing is negative, the possibility of a false negative should be considered in the context of a patient's recent exposures and the presence of clinical signs and symptoms consistent with SARS-CoV-2. This test is not yet approved or cleared by the [place] FDA. When there are no FDA-approved or cleared tests available, and other criteria are met, FDA can make tests available under an emergency access mechanism called an Emergency Use Authorization (EUA). The EUA for this test is supported by the Clinical Instructor of Health and Human Service's declaration that circumstances exist to justify the emergency use of in vitro diagnostics for the detection and/or diagnosis of the virus that causes COVID-19. This EUA will remain in effect for the duration of the COVID-19 declaration justifying emergency of IVDs, unless it is terminated or revoked by the FDA (after which the test may no longer be used). Performed By: #### A ST, LIPID, ALT #### [facility] [address] [address] [address] Carrie Gan LACTATE/LACTIC ACIDon 2021 Lactate [Moles/Vol] 0.9 mmol/L Normal 0.4-1.9 [facility] Comment on above: Performed By: #### L ACT #### [facility] [address] [address] [address] Carrie Gan XR CHEST 1 Von 12-13-2021 XR CHEST 1 V EXAM: Chest x-ray HISTORY: CHEST PAIN, UNSPECIFIED COMPARISON: 11/13/2021 TECHNIQUE: AP portable upright view of the chest FINDINGS: Heart and vascularity are unremarkable. Lungs are free of focal infiltrates. EKG leads overlie the chest. IMPRESSION: No acute heart or lung disease identified. Electronically authenticated by: SHAILESH VIZCAINO Date: 2021-12-12 22:18 Normal [facility] CBC AUTO DIFFon 12-12-2021 BASO # 0.0 103/ul Normal 0.0-0.1 [facility] Comment on above: Performed By: #### A ST, LIPID, ALT #### [facility] [address] [place] [address] Dr. Carrie Gan Basophils/100 WBC (Bld) 0.3 % Normal 0.2-2.0 [facility] Comment on above: Performed By: #### A ST, LIPID, ALT #### [facility] [address] [place] [address] Dr. Carrie Gan EO # 0.0 103/ul Normal 0.0-0.7 [facility] Comment on above: Performed By: #### A ST, LIPID, ALT #### [facility] [address] [place] [address] Dr. Carrie Gan Eosinophils/100 WBC (Bld) 0.2 % Critically low 0.9-7.0 [facility] Comment on above: Performed By: #### A ST, LIPID, ALT #### [facility] [address] [place] [address] Dr. Carrie Gan Erythrocyte distribution width (RBC) [Ratio] 15.0 % Normal 11.0-15.0 [facility] Comment on above: Performed By: #### A ST, LIPID, ALT #### [facility] [address] [place] [address] Dr. Carrie Gan Hematocrit (Bld) [Volume fraction] 43.8 % Normal 36.0-48.0 [facility] Comment on above: Performed By: #### A ST, LIPID, ALT #### [facility] [address] [place] [address] Dr. Carrie Gan Hemoglobin (Bld) [Mass/Vol] 13.8 g/dL Normal 12.0-16.0 [facility] Comment on above: Performed By: #### A ST, LIPID, ALT #### [facility] [address] [place] [address] Dr. Carrie Gan IG # 0.04 10e3/ul Critically high 0.00-0.03 [facility] Comment on above: Performed By: #### A ST, LIPID, ALT #### [facility] [address] [place] [address] Dr. Carrie Gan IG % 0.3 % Normal 0.0-0.5 [facility] Comment on above: Performed By: #### A ST, LIPID, ALT #### [facility] [address] [place] [address] Dr. Carrie Gan LYMPH # 2.1 103/ul Normal 1.2-3.8 [facility] Comment on above: Performed By: #### A ST, LIPID, ALT #### [facility] [address] [place] [address] Dr. Carrie Gan Lymphocytes/100 WBC (Bld) 16.3 % Critically low 20.5-60.0 [facility] Comment on above: Performed By: #### A ST, LIPID, ALT #### [facility] [address] [place] [address] Dr. Carrie Gan MANUAL DIFF REQ NO Normal [facility] Comment on above: Performed By: #### A ST, LIPID, ALT #### [facility] [address] [place] [address] Dr. Carrie Gan MCH (RBC) [Entitic mass] 27.3 pg Normal 26.7-34.0 [facility] Comment on above: Performed By: #### A ST, LIPID, ALT #### [facility] [address] [place] [address] Dr. Carrie Gan MCHC (RBC) [Mass/Vol] 31.5 g/dL Normal 29.9-35.2 [facility] Comment on above: Performed By: #### A ST, LIPID, ALT #### [facility] [address] [place] [address] Dr. Carrie Gan MCV (RBC) [Entitic vol] 86.6 fL Normal 81.0-99.0 [facility] Comment on above: Performed By: #### A ST, LIPID, ALT #### [facility] [address] [place] [address] Dr. Carrie Gan MONO # 1.1 103/ul Critically high 0.3-0.8 [facility] Comment on above: Performed By: #### A ST, LIPID, ALT #### [facility] [address] [address] [address] Carrie Gan Monocytes/100 WBC (Bld) 8.4 % Normal 1.7-12.0 [facility] Comment on above: Performed By: #### A ST, LIPID, ALT #### [facility] [address] [address] [address] Carrie Gan NEUT # 9.6 103/ul Critically high 1.4-6.5 [facility] Comment on above: Performed By: #### A ST, LIPID, ALT #### [facility] [address] [address] [address] Carrie Gan Neutrophils/100 WBC (Bld) 74.5 % Normal 43.0-75.0 [facility] Comment on above: Performed By: #### A ST, LIPID, ALT #### [facility] [address] [place] [address] Dr. Carrie Gan Platelet mean volume (Bld) [Entitic vol] 9.6 fL Normal 9.5-13.5 [facility] Comment on above: Performed By: #### A ST, LIPID, ALT #### [facility] [address] [address] [address] Carrie Gan PLT 385 103/ul Normal 150-450 [facility] Comment on above: Performed By: #### A ST, LIPID, ALT #### [facility] [address] [address] [address] Carrie Gan RBC 5.06 106/ul Normal 4.20-5.40 [facility] Comment on above: Performed By: #### A ST, LIPID, ALT #### [facility] [address] [place] [address] Dr. Carrie Gan WBC 12.9 103/ul Critically high 4.0-11.0 [facility] Comment on above: Performed By: #### A ST, LIPID, ALT #### [facility] [address] [address] [address] Carrie Gan LACTATE/LACTIC ACIDon 2021 Lactate [Moles/Vol] 1.8 mmol/L Normal 0.4-1.9 [facility] Comment on above: Performed By: #### A ST, LIPID, ALT #### [facility] [address] [place] [address] Dr. Carrie Gan PROF 14(COMP METB)on 022 Albumin [Mass/Vol] 2.7 g/dL Critically low 3.4-5.0 [facility] Comment on above: Performed By: #### C MP, HSTROPN #### [facility] [address] [place] [address] Dr. Carrie Gan Albumin/Globulin [Mass ratio] 0.6 {ratio} Normal [facility] Comment on above: Performed By: #### C MP, HSTROPN #### [facility] [address] [place] [address] Dr. Carrie Gan ALP [Catalytic activity/Vol] 113 U/L Normal 46-116 [facility] Comment on above: Performed By: #### C MILE, HSTROPN #### [facility] [address] [place] [address] Dr. Carrie Gan ALT [Catalytic activity/Vol] 24 U/L Normal 14-59 [facility] Comment on above: Performed By: #### C MILE, HSTROPN #### [facility] [address] [place] [address] Dr. Carrie Gan Anion gap [Moles/Vol] 14.3 mmol/L Normal [facility] Comment on above: Performed By: #### C MP, HSTROPN #### [facility] [address] [place] [address] Dr. Carrie Gan AST [Catalytic activity/Vol] 16 U/L Normal 15-37 [facility] Comment on above: Performed By: #### C MP, HSTROPN #### [facility] [address] [place] [address] Dr. Carrie Gan Bilirubin [Mass/Vol] 0.5 mg/dL Normal 0.2-1.0 [facility] Comment on above: Performed By: #### C MP, HSTROPN #### [facility] [address] [address] [address] Carrie Gan Calcium [Mass/Vol] 9.0 mg/dL Normal 8.5-10.1 [facility] Comment on above: Performed By: #### C MP, HSTROPN #### [facility] [address] [address] [address] Carrie Gan Chloride [Moles/Vol] 102 mmol/L Normal 98-107 [facility] Comment on above: Performed By: #### C MP, HSTROPN #### [facility] [address] [address] [address] Carrie Gan CO2 [Moles/Vol] 26.4 mmol/L Normal 21.0-32.0 [facility] Comment on above: Performed By: #### C MP, HSTROPN #### [facility] [address] [place] [address] Dr. Carrie Gan Creatinine [Mass/Vol] 0.84 mg/dL Normal 0.55-1.02 [facility] Comment on above: Performed By: #### C MP, HSTROPN #### [facility] [address] [address] [address] Carrie Gan EGFR-AF UZBEK >60 Normal >=60 [facility] Comment on above: Performed By: #### C MP, HSTROPN #### [facility] [address] [place] [address] Dr. Carrie Gan EGFR-NON AF UZBEK >60 Normal >=60 [facility] Comment on above: Performed By: #### C MP, HSTROPN #### [facility] [address] [address] [address] Carrie Gan Globulin (S) [Mass/Vol] 4.8 g/dL Normal [facility] Comment on above: Performed By: #### C MP, HSTROPN #### [facility] [address] [address] [address] Carrie Gan Glucose [Mass/Vol] 120 mg/dL Critically high 74-[address] [facility] Comment on above: Performed By: #### C MP, HSTROPN #### [facility] [address] [place] [address] Dr. Carrie Gan Potassium [Moles/Vol] 3.7 mmol/L Normal 3.5-5.1 [facility] Comment on above: Performed By: #### C MP, HSTROPN #### [facility] [address] [place] [address] Dr. Carrie Gan Protein [Mass/Vol] 7.5 g/dL Normal 6.4-8.2 [facility] Comment on above: Performed By: #### C MP, HSTROPN #### [facility] [address] [place] [address] Dr. Carrie Gan Sodium [Moles/Vol] 139 mmol/L Normal 136-145 [facility] Comment on above: Performed By: #### C MP, HSTROPN #### [facility] [address] [place] [address] Dr. Carrie Gan Urea nitrogen [Mass/Vol] 15.0 mg/dL Normal 7.0-18.0 [facility] Comment on above: Performed By: #### C MP, HSTROPN #### [facility] [address] [place] [address] Dr. Carrie Gan Urea nitrogen/Creatinine [Mass ratio] 17.9 mg/mg Normal [facility] Comment on above: Performed By: #### C MP, HSTROPN #### [facility] [address] [place] [address] Dr. Carrie Gan TROPONIN, HIGH SENSITIVITYon 12-12-2021 HSTROP 50.2 pg/mL Normal 4.0-51.3 [facility] Comment on above: Result Comment: CUT- OFF POINTS HAVE BEEN ESTABLISHED BASED ON THE FOURTH UNIVERSAL DEFINITIONS OF MYOCARDIAL INFARCTION. THE UPPER REFERENCE LIMIT (URL) OF TROPONIN, DEFINED THE 99TH PERCENTILE OF cTnI DISTRIBUTION IN A REFERENCE POPULATION, HAS BEEN CONFIRMED THE DECISION THRESHOLD FOR [place] DIAGNOSIS. Performed By: #### A ST, LIPID, ALT #### [facility] [address] [place] [address] ABDOMEN WO IVCONon 05-31- 2022 CT ABDOMEN WO IVCON * * *Final Report* * * DATE OF EXAM: Dec 02 2021 10:24AM [facility] 0534 - CT ABDOMEN WO IVCON / PROCEDURE REASON: Nausea * * * * Physician Interpretation * * * * RESULT: EXAMINATION: XR UPPER GI SINGLE CONTRAST, CT ABDOMEN WO IVCON CLINICAL HISTORY: LEAK STUDY (accession [id number]), assess gastric leak per Dr. 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 Technique: XR UPPER GI SINGLE CONTRAST, CT ABDOMEN WO IVCON to further evaluate trace leak. CT Radiation dose: Integrated Dose-length product (DLP) for this visit = 552 mGy*cm. Comparison: None EXAMINATION: XR UPPER GI SINGLE CONTRAST, CT ABDOMEN WO IVCON CLINICAL HISTORY: LEAK STUDY (accession [id number]), assess gastric leak per Dr. Hi (accession [id number]) Complications of bariatric procedures (accession [id number]), Nausea (accession [id number]) Gastric anastomotic leak ; postsurgical changes 3 Technique: XR UPPER GI SINGLE CONTRAST, CT ABDOMEN WO IVCON. Fluoroscopic Radiation Summary: Plane A, Air Kerma: 92.6 mGy Fluoro time: 1:36 min:sec Contrast Media: Oral administration of 250mL ml of OMNIPAQUE 240 Comparison: CT abdomen and pelvis 11/27/2021 RESULT: Upper GI fluoroscopy: [facility] images demonstrate no dilated bowel. Postsurgical changes in the upper abdomen are noted. No dilated bowel. Administration of enteric contrast demonstrates no extravasation during upright dependent evaluation; there is irregular gastric morphology along the left lateral border, likely postsurgical. Left lateral decubitus positioning of the patient and with subsequent additional enteric contrast administration demonstrated no extravasation. Additional left lateral decubitus positioning of the patient and followed by overhead AP and oblique imaging also showed no extravasation. CT abdomen: There is opacification of the distal esophagus and stomach with enteric contrast. Irregular post surgical changes along the left lateral border of the stomach is again seen on CT with enteric contrast opacification. No extravasation is identified. Normal hepatic morphology with no focal lesion identified on this noncontrast study. Cholecystectomy. The pancreas is unremarkable. No splenomegaly. No renal calculus or hydronephrosis. No dilated bowel in the abdomen. No ascites. No mesenteric mass or lymphadenopathy.Small ventral hernia with nondilated loops of bowel. Degenerative changes in the thoracic spine. IMPRESSION: No fluoroscopic evidence of a leak. No CT evidence of a leak. Additional findings as detailed in the report. Transcribed Using Voice Recognition Transcribe Date/Time: Dec 02 2021 5:05P Dictated by: RICHARDSON HI MD This examination was interpreted and the report reviewed and electronically signed by: RICHARDSON HI MD on Dec 02 2021 5:19PM EST [id number] [facility] XR UPPER GI SINGLE CONTRASTo n 12-02-2021 XR UPPER GI SINGLE CONTRAST * * *Final Report* * * DATE OF EXAM: Dec 02 2021 10:25AM SPX 5380 - XR UPPER GI SINGLE CONTRAST / PROCEDURE REASON: multiple diagnoses * * * * Physician Interpretation * * * * RESULT: EXAMINATION: XR UPPER GI SINGLE CONTRAST, CT ABDOMEN WO IVCON CLINICAL HISTORY: LEAK STUDY (accession [id number]), assess gastric leak per Dr. 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 Technique: XR UPPER GI SINGLE CONTRAST, CT ABDOMEN WO IVCON to further evaluate trace leak. CT Radiation dose: Integrated Dose-length product (DLP) for this visit = 552 mGy*cm. Comparison: None EXAMINATION: XR UPPER GI SINGLE CONTRAST, CT ABDOMEN WO IVCON CLINICAL HISTORY: LEAK STUDY (accession [id number]), assess gastric leak per Dr. Hi (accession [id number]) Complications of bariatric procedures (accession [id number]), Nausea (accession [id number]) Gastric anastomotic leak ; postsurgical changes 3 Technique: XR UPPER GI SINGLE CONTRAST, CT ABDOMEN WO IVCON. Fluoroscopic Radiation Summary: Plane A, Air Kerma: 92.6 mGy Fluoro time: 1:36 min:sec Contrast Media: Oral administration of 250mL ml of OMNIPAQUE 240 Comparison: CT abdomen and pelvis 11/27/2021 RESULT: Upper GI fluoroscopy: [facility] images demonstrate no dilated bowel. Postsurgical changes in the upper abdomen are noted. No dilated bowel. Administration of enteric contrast demonstrates no extravasation during upright dependent evaluation; there is irregular gastric morphology along the left lateral border, likely postsurgical. Left lateral decubitus positioning of the patient and with subsequent additional enteric contrast administration demonstrated no extravasation. Additional left lateral decubitus positioning of the patient and followed by overhead AP and oblique imaging also showed no extravasation. CT abdomen: There is opacification of the distal esophagus and stomach with enteric contrast. Irregular post surgical changes along the left lateral border of the stomach is again seen on CT with enteric contrast opacification. No extravasation is identified. Normal hepatic morphology with no focal lesion identified on this noncontrast study. Cholecystectomy. The pancreas is unremarkable. No splenomegaly. No renal calculus or hydronephrosis. No dilated bowel in the abdomen. No ascites. No mesenteric mass or lymphadenopathy.Small ventral hernia with nondilated loops of bowel. Degenerative changes in the thoracic spine. IMPRESSION: No fluoroscopic evidence of a leak. No CT evidence of a leak. Additional findings as detailed in the report. Transcribed Using Voice Recognition Transcribe Date/Time: Dec 02 2021 5:05P Dictated by: RICHARDSON HI MD This examination was interpreted and the report reviewed and electronically signed by: RICHARDSON HI MD on Dec 02 2021 5:19PM EST [id number] Normal [facility] CT ABD/PEL W IVCONon 022 [facility] EGD - THERAPEUTIC, EUS, OR T UBE INTERVENTIONSon 11-05-[address] [facility] [address] ABD/PEL W IVCONon 022 [facility] EGD - THERAPEUTIC, EUS, OR T UBE INTERVENTIONSon 10-08-[address] [facility] [address] ABD/PEL W IVCONon 022 [facility] COMPREHENSIVE METABOLIC PANE Dilip 09-24-2021 Albumin [Mass/Vol] 3.7 g/dL Normal 3.6-5.1 [facility] Comment on above: Performed By: #### 5 7297, 8500, 63074 #### [facility] [address], [address] [place] [id number] Rougher Operator: German Guzmán MD Albumin/Globulin [Mass ratio] 1.2 {ratio} Normal 1.0-2.5 [facility] Comment on above: Performed By: #### 5 8984, 7600, 06179 #### [facility] of [address], [address] [place] [address] Rougher Operator: German Guzmán MD ALP [Catalytic activity/Vol] 101 U/L Normal 37-153 [facility] Comment on above: Performed By: #### 5 89, 7600, 00402 #### [facility] of [address], [address] [place] [address] Rougher Operator: German Guzmán MD ALT [Catalytic activity/Vol] 13 U/L Normal 6-29 [facility] Comment on above: Performed By: #### 5 8984, 7600, 75475 #### [facility] of [address], [address] [place] [address] Rougher Operator: German Guzmán MD AST [Catalytic activity/Vol] 14 U/L Normal 10-35 [facility] Comment on above: Performed By: #### 5 8984, 7600, 56626 #### [facility] of [address], [address] [place] [address] Rougher Operator: German Guzmán MD Bilirubin [Mass/Vol] 0.5 mg/dL Normal 0.2-1.2 [facility] Comment on above: Performed By: #### 5 8984, 7600, 63736 #### [facility] of [place] [address] Rougher Operator: German Guzmán MD BUN/CREATININE RATIO NOT APPLICABLE Normal 6-22 [facility] Comment on above: Performed By: #### 5 89, 7600, 09854 #### [facility] of [place] [address] Rougher Operator: German Guzmán MD Calcium [Mass/Vol] 9.4 mg/dL Normal 8.6-10.4 [facility] Comment on above: Performed By: #### 5 89, 7600, 20928 #### [facility] [address], [address] [place] [address] Rougher Operator: German Guzmán MD Chloride [Moles/Vol] 105 mmol/L Normal 98-110 [facility] Comment on above: Performed By: #### 5 8984, 7600, 20726 #### [facility] [address], [address] [place] [address] Rougher Operator: German Guzmán MD CO2 [Moles/Vol] 29 mmol/L Normal 20-32 [facility] Comment on above: Performed By: #### 5 89, 7600, 46946 #### [facility] [address], [address] [place] [address] Rougher Operator: German Guzmán MD Creatinine [Mass/Vol] 0.59 mg/dL Normal 0.50-1.[address] [facility] [address] [facility] Comment on above: Result Comment: For patients >49 years of age, the reference limit for Creatinine is approximately 13% higher for people identified as -Jamaican. Performed By: #### 5 05, 7600, 40036 #### [facility] [address], [address] [place] [address] Rougher Operator: German Guzmán MD eGFR NON-AFR. UZBEK 103 mL/min/1.73m2 Normal > OR = 60 [facility] Comment on above: Performed By: #### 5 89, 7600, 54211 #### [facility] [address], [address] [place] [address] Rougher Operator: Germna Guzmán MD GFR/1.73 sq M.predicted among blacks MDRD (S/P/Bld) [Vol rate/Area] 120 mL/min/{1.73_m2} Normal > OR = 60 [facility] Comment on above: Performed By: #### 5 8984, 7600, 85109 #### [facility] [address], [address] [place] [address] Rougher Operator: German Guzmán MD Globulin (S) [Mass/Vol] 3.2 g/dL Normal 1.9-3.7 [facility] Comment on above: Performed By: #### 5 8984, 7600, 04823 #### [facility] [place] [address] Rougher Operator: German Guzmán MD Glucose [Mass/Vol] 92 mg/dL Normal 65-99 [facility] Comment on above: Result Comment: Fasting reference interval Performed By: #### 5 8984, 7600, 95571 #### [facility] [address], [address] [place] [address] Rougher Operator: German Guzmán MD Potassium [Moles/Vol] 3.9 mmol/L Normal 3.5-5.[address] [facility] [address] [facility] Comment on above: Performed By: #### 5 8984, 7600, 99214 #### [facility] [place] [address] Rougher Operator: German Guzmán MD Protein [Mass/Vol] 6.9 g/dL Normal 6.1-8.1 [facility] Comment on above: Performed By: #### 5 8984, 7600, 15516 #### [facility] [place] [address] Rougher Operator: German Guzmán MD Sodium [Moles/Vol] 142 mmol/L Normal 135-146 [facility] Comment on above: Performed By: #### 5 8984, 7600, 00157 #### [facility] [place] [address] Rougher Operator: German Guzmán MD Urea nitrogen [Mass/Vol] 25 mg/dL Normal 7-25 [facility] Comment on above: Performed By: #### 5 8984, 7600, 62498 #### [facility] [place] [address] Rougher Operator: German Guzmán MD LIPID PANEL, [facility] 09-03 Cholesterol [Mass/Vol] 123 mg/dL Normal <200 [facility] Comment on above: Order Comment: FASTI NG:YES FASTING: YES Performed By: #### 5 8984, 7600, 30861 #### [facility] [address], [address] [place] [address] Rougher Operator: German Guzmán MD Cholesterol in HDL [Mass/Vol] 31 mg/dL Low > OR = 50 [facility] Comment on above: Order Comment: FASTI NG:YES FASTING: YES Performed By: #### 5 8984, 7600, 70838 #### [facility] [address], [address] [place] [address] Rougher Operator: German Guzmán MD Cholesterol in LDL [Mass/Vol] 76 mg/dL Normal [facility] Comment on above: Order Comment: FASTI NG:YES FASTING: YES Result Comment: Refe rence range: <100 Desirable range <100 mg/dL for primary prevention; <70 mg/dL for patients with CHD or diabetic patients with > or = 2 CHD risk factors. LDL-C is now calculated using the Soniya calculation, which is a validated novel method providing better accuracy than the Friedewald equation in the estimation of LDL-C. Mehul LEAL et al. NURIS. 2013;310(19): 6649-7607 (http://education.[employer]./faq/XEE711) Performed By: #### 5 8984, 7600, 92285 #### [facility] [address], [address] [place] [address] Rougher Operator: German Guzmán MD Cholesterol.total/Chol esterol in HDL [Mass ratio] 4.0 {ratio} Normal <5.0 [facility] Comment on above: Order Comment: FASTI NG:YES FASTING: YES Performed By: #### 5 8984, 7600, 13415 #### [facility] [address], [address] [place] [address] Rougher Operator: German Guzmán MD NON HDL CHOLESTEROL 92 mg/dL (calc) Normal <130 [facility] Comment on above: Order Comment: FASTI NG:YES FASTING: YES Result Comment: For patients with diabetes plus 1 major ASCVD risk factor, treating to a non-HDL-C goal of <100 mg/dL (LDL-C of <70 mg/dL) is considered a therapeutic option. Performed By: #### 5 8984, 7600, 36726 #### [facility] [address], [address] [place] [address] Rougher Operator: German Guzmán MD Triglyceride [Mass/Vol] 84 mg/dL Normal <150 [facility] Comment on above: Order Comment: FASTI NG:YES FASTING: YES Performed By: #### 5 8984, 7600, 25837 #### [facility] [place] [address] Rougher Operator: German Guzmán MD TSH+FREE T4on 09-24-2021 Free T4 [Mass/Vol] 2.3 ng/dL High 0.8-1.8 [facility] Comment on above: Performed By: #### 5 8984, 7600, 63691 #### [facility] [place] [address] Rougher Operator: German Guzmán MD TSH Qn m[IU]/L Low [facility] Comment on above: Result Comment: Refe edi Range > or = 20 Years 0.40-4.50 Ranges First trimester 0.26-2.66 Second trimester 0.55-2.73 Third trimester 0.43-2.91 Performed By: #### 5 8984, 7600, 62987 #### [facility] [place] [address] Rougher Operator: German Guzmán MD TSH+FREE T4on 04-11-2021 Free T4 [Mass/Vol] 0.4 ng/dL Low 0.8-1.8 [facility] Comment on above: Order Comment: FASTI NG:UNKNOWN FASTING: UNKNOWN Performed By: #### 5 8984 #### [facility] [place] [address] Rougher Operator: German Guzmán MD TSH Qn 52.11 m[IU]/L High [facility] Comment on above: Order Comment: FASTI NG:UNKNOWN FASTING: UNKNOWN Result Comment: Refe rence Range > or = 20 Years 0.40-4.50 Ranges First trimester 0.26-2.66 Second trimester 0.55-2.73 Third trimester 0.43-2.91 Performed By: #### 5 8984 #### [facility] [address], [address] [place] [address] Rougher Operator: German Guzmán MD Coding Summaryon 06-16-2019 Coding Summary CODING DATE: 019 [facility] STATUS: Home PAYOR: [employer] APC DESCRIPTION 5733 Level 3 Minor Procedures ADMIT DX: REASON FOR VISIT DX: Z01.818 Encounter for other preprocedural examination FINAL DX: PRINCIPAL: Z01.818 Encounter for other preprocedural examination SECONDARY: PYMT PROC APC STAT DESCRIPTION DOCTOR NAME DATE NOTE: The code number assigned matches the documented diagnosis and / or procedure in the patient's chart. However, the narrative phrase printed from the coding software may appear abbreviated, or result in slightly different terminology. Coded By: Lynda Landeros Date Saved: 06/16/2019 01:27 pm [facility] Progress Note - Nurseon 06-04 Progress Note - Nurse Spoke with Yari lala anesthesia and Dr. Corley's concerns regarding cardiac cath. Pt instructed to call Dr. Ac's office for a follow up appointment and further discussion on cardiac cath. Verbalized understanding. [Electronically Signed on: 06/15/2019 15:38 EST] Marie He RN [Verified on: 06/15/2019 15:38 EST] Marie He RN [facility] Progress Note - Nurse 1451 Dr. Corley revi ews chart, cardiac Hx from [facility] and makes the decision pt is too high risk and would benefit from surgery @ [facility]. 6187 Dr. cA's office notified of surgery cancellation and Dr. Corley's reasons. 1500 Pt notified of OR cancellation and Dr. Corley's reasons for doing so. [Electronically Signed on: 06/15/2019 15:08 EST] Zoran Torres RN [Verified on: 06/15/2019 15:08 EST] Zoran Torres RN [facility] Progress Note - Nurse Spoke with pt and informed her to be here at 0830 and NPO after MN, she verbalizes understanding [Electronically Signed on: 06/15/2019 09:30 EST] Autumn Johnson RN [Verified on: 06/15/2019 09:30 EST] Autumn Johnson RN [facility] Progress Note - Nurseon 120 Progress Note - Nurse Call made to Dr. May bowman office and message left on 06/02/19 to call back and again on 06/05/19, no return call. Call made again this am, spoke with Bessy. Informed of needing a cardiac clearance. Requested to have ECG and labs faxed to office. [Electronically Signed on: 06/06/2019 09:03 EST] Lynette Portillo RN [Verified on: 06/06/2019 09:03 EST] Lynette Portillo RN [facility] Provider Orderson 05-31-2019 Provider Orders [id number] [facility] .Auto Diff 1on 05-30-2019 Auto [place] % 6 % Normal 1-12 [facility] Comment on above: Performed By: #### 1 [id number], [id number], 8496268 #### [facility] (DEFAULT) [address] [place] [address] Baso Abs# 0.0 x10 Normal 0.0-0.2 [facility] Comment on above: Performed By: #### 1 [id number], [id number], 2352133 #### [facility] (DEFAULT) [address] [place] [address] 10640 Basophils/100 WBC (Bld) 0.2 % Normal 0.2-2.0 [facility] Comment on above: Performed By: #### 1 [id number], 89541033, 5662976 #### [facility] (DEFAULT) [address] [place] [address] 61943 Eos Abs# 0.2 x10 Normal 0.0-0.4 [facility] Comment on above: Performed By: #### 1 [id number], 89637816, 2378133 #### [facility] (DEFAULT) [address] [place] [address] 63138 Eosinophils/100 WBC (Bld) 1.4 % Normal 0.9-4.0 [facility] Comment on above: Performed By: #### 1 [id number], 17094106, 7106334 #### [facility] (DEFAULT) [address] [place] [address] 91004 Lymphocytes (Bld) [#/Vol] 2.8 x10 Normal 1.3-2.9 [facility] Comment on above: Performed By: #### 1 [id number], 52553568, 2576791 #### [facility] (DEFAULT) [address] [place] [address] 07339 Lymphocytes/100 WBC (Bld) 27 % Normal 14-48 [facility] Comment on above: Performed By: #### 1 [id number], 84594850, 9439911 #### [facility] (DEFAULT) [address] [place] [address] [place] Abs# 0.6 x10 Normal 0.0-0.8 [facility] Comment on above: Performed By: #### 1 [id number], 92129649, 6035743 #### [facility] (DEFAULT) [address] [place] [address] Neut Abs# 6.8 x10 Normal 1.5-9.2 [facility] Comment on above: Performed By: #### 1 [id number], 62787142, 6089446 #### [facility] (DEFAULT) [address] [place] [address] Neutrophils/100 WBC (Bld) 66 % Normal 44-88 [facility] Comment on above: Performed By: #### 1 [id number], [id number], 7424776 #### [facility] (DEFAULT) [address] [place] [address] Standardon 05-30-2019 eGFR Non AA >60 [facility] Comment on above: Performed By: #### 1 [id number], 94584710, 7067595 #### [facility] (DEFAULT) [address] [place] [address] eGFR AA >60 [facility] Comment on above: Result Comment: Goat Herder nila Kidney disease could be indicated at eGFRs of less than 60 ml/min/1.73m2. Kidney Failure is indicated at less than 15 ml/min/1.73m2 Performed By: #### 1 [id number], 37094204, 8446882 #### [facility] (DEFAULT) [address] [place] [address] 51279 Anion gap [Moles/Vol] 19.0 mmol/L Normal 5.0-19.0 [facility] Comment on above: Performed By: #### 1 [id number], 34035805, 3908470 #### [facility] (DEFAULT) [address] [place] [address] Calcium [Mass/Vol] 9.2 mg/dL Normal 8.9-10.3 [facility] Comment on above: Performed By: #### 1 [id number], 85651510, 0877701 #### [facility] (DEFAULT) [address] [place] [address]57 Chloride [Moles/Vol] 94 mmol/L Low 101-111 [facility] Comment on above: Performed By: #### 1 [id number], 37516655, 6250839 #### [facility] (DEFAULT) [address] [place] [address] 99766 CO2 [Moles/Vol] 29 mmol/L Normal 21-32 [facility] Comment on above: Performed By: #### 1 [id number], 03543326, 8056558 #### [facility] (DEFAULT) [address] [place] [address] 56739 Creatinine [Mass/Vol] 0.81 mg/dL Normal 0.60-1.30 [facility] Comment on above: Performed By: #### 1 [id number], 35417737, 9936197 #### [facility] (DEFAULT) [address] [place] [address] 59970 Glucose [Mass/Vol] 107.0 mg/dL Normal 74.0-118.0 [facility] Comment on above: Performed By: #### 1 [id number], 31726889, 1282263 #### [facility] (DEFAULT) [address] [place] [address] 10535 Osmolality [Osmolality] 280 mOsm/L [facility] Comment on above: Performed By: #### 1 [id number], 06548576, 7321344 #### [facility] (DEFAULT) [address] [place] [address] 39575 Potassium [Moles/Vol] 3.3 mmol/L Low 3.6-5.1 [facility] Comment on above: Performed By: #### 1 [id number], 57254442, 2077729 #### [facility] (DEFAULT) [address] [place] [address] 19721 Sodium [Moles/Vol] 139.0 mmol/L Normal 136.0-144 . 0 [facility] Comment on above: Performed By: #### 1 [id number], 52778893, 6532766 #### [facility] (DEFAULT) [address] [place] [address] Urea nitrogen [Mass/Vol] 17 mg/dL Normal 8-26 [facility] Comment on above: Performed By: #### 1 [id number], 01672635, 6065104 #### [facility] (DEFAULT) [address] [place] [address] Urea nitrogen/Creatinine [Mass ratio] 21.0 mg/mg High 4.6-16.2 [facility] Comment on above: Performed By: #### 1 [id number], 04266622, 8325519 #### [facility] (DEFAULT) [address] [place] [address] CBC w/ Auto Diffon 9 Erythrocyte distribution width (RBC) [Ratio] 14.5 % Normal 11.5-15.0 [facility] Comment on above: Performed By: #### 1 [id number], 53045583, 8427310 #### [facility] (DEFAULT) [address] [place] [address] 96732 Hematocrit (Bld) [Volume fraction] 43.0 % High 33.7-40.4 [facility] Comment on above: Performed By: #### 1 [id number], 26549866, 5184793 #### [facility] (DEFAULT) [address] [place] [address] 18161 Hemoglobin (Bld) [Mass/Vol] 14.1 g/dL Normal 11.3-15.9 [facility] Comment on above: Performed By: #### 1 [id number], 26103513, 4325630 #### [facility] (DEFAULT) [address] [place] [address] 57997 Man Diff? Auto Normal [facility] Comment on above: Performed By: #### 1 [id number], 71198914, 1604552 #### [facility] (DEFAULT) [address] [place] [address] 51418 MCH (RBC) [Entitic mass] 29 pg Normal 24-34 [facility] Comment on above: Performed By: #### 1 [id number], 66882636, 4453909 #### [facility] (DEFAULT) [address] [place] [address] 19162 MCHC (RBC) [Mass/Vol] 33 g/dL Normal 26-37 [facility] Comment on above: Performed By: #### 1 [id number], 11949900, 0201648 #### [facility] (DEFAULT) [address] [place] [address] 99933 MCV (RBC) [Entitic vol] 88 fL Normal 81-100 [facility] Comment on above: Performed By: #### 1 [id number], 04923553, 7668212 #### [facility] (DEFAULT) [address] [place] [address] 04478 Platelet mean volume (Bld) [Entitic vol] 9.4 fL Normal 6.3-10.2 [facility] Comment on above: Performed By: #### 1 [id number], 45819127, 2355156 #### [facility] (DEFAULT) [address] [place] [address] 95511 Platelets (Bld) [#/Vol] 329 x10 Normal 138-427 [facility] Comment on above: Performed By: #### 1 [id number], 97904979, 0302892 #### [facility] (DEFAULT) [address] [place] [address] 89980 RBC (Bld) [#/Vol] 4.90 x10 Normal 3.70-5.30 [facility] Comment on above: Performed By: #### 1 [id number], 39747135, 3428677 #### [facility] (DEFAULT) [address] [place] [address] 94081 WBC (Bld) [#/Vol] 10.4 x10 [facility] Comment on above: Performed By: #### 1 [id number], 23601136, 1299948 #### [facility] (DEFAULT) [address] [place] [address] 39381 Vital Signs Date Time Vital Sign Value Performing Clinician Facility 05-01-2024 11:44-0400 Body height 160 cm Jr. Stepanic DO Work Phone: [facility] 05-01-2024 11:44-0400 Body mass index (BMI) [Ratio] 26.57 kg/m2 Jr. Stepanic DO Work Phone: [facility] 05-01-2024 11:44-0400 Body weight 68.04 kg Jr. Stepanic DO Work Phone: [facility] 04-27-2024 13:47-0400 Body height 160 cm Maci Pavon HAND FINISHER-PRODUCTION TECHNOLOGIST Work Phone: [facility] [employer] [facility] 04-27-2024 13:47-0400 Body mass index (BMI) [Ratio] 27.17 kg/m2 Maci Pavon HAND FINISHER-PRODUCTION TECHNOLOGIST Work Phone: [facility] [employer] [facility] 04-27-2024 13:47-0400 Body temperature 98.01 [degF] Maci Pavon HAND FINISHER-PRODUCTION TECHNOLOGIST Work Phone: [facility] 04-27-2024 13:47-0400 Body weight 69.58 kg Maci Pavon HAND FINISHER-PRODUCTION TECHNOLOGIST Work Phone: [facility] [employer] [facility] 04-27-2024 13:47-0400 Diastolic blood pressure 62 mm[Hg] Maci Pavon HAND FINISHER-PRODUCTION TECHNOLOGIST Work Phone: [facility] [employer] [facility] 04-27-2024 13:47-0400 Heart rate 74 /min Macicara Pavon HAND FINISHER-PRODUCTION TECHNOLOGIST Work Phone: [facility] [employer] [facility] 04-27-2024 13:47-0400 Respiratory rate 18 /min Macicara Pavon HAND FINISHER-PRODUCTION TECHNOLOGIST Work Phone: [facility] [employer] 04-27-2024 13:47-0400 SaO2% (BldA) [Mass fraction] 98 % Maci Pavon HAND FINISHER-PRODUCTION TECHNOLOGIST Work Phone: [facility] [employer] [facility] 04-27-2024 13:47-0400 Systolic blood pressure 98 mm[Hg] Maci Librado HAND FINISHER-PRODUCTION TECHNOLOGIST Work Phone: [facility] 02-22-2024 13:32-0400 Body height 160 cm Zulema Jc DPM Work Phone: [facility] 02-22-2024 13:32-0400 Body mass index (BMI) [Ratio] 26.57 kg/m2 Zulema Clark DPM Work Phone: [facility] 02-22-2024 13:32-0400 Body weight 68.04 kg Zulema Clark DPM Work Phone: [facility] 09-23-2023 11:04-0400 Body height 160 cm Abhijit Delvis HAND FINISHER.PRODUCTION TECHNOLOGIST Work Phone: [facility] 09-23-2023 11:04-0400 Body temperature 98.1 [degF] Abhijit Delvis HAND FINISHER.PRODUCTION TECHNOLOGIST Work Phone: [facility] 09-23-2023 11:04-0400 Body weight 61.83 kg Abhijit Delvis HAND FINISHER.PRODUCTION TECHNOLOGIST Work Phone: [facility] 09-23-2023 11:04-0400 Diastolic blood pressure 76 mm[Hg] Abhijit Delvis HAND FINISHER.PRODUCTION TECHNOLOGIST Work Phone: [facility] 09-23-2023 11:04-0400 Heart rate 61 /min Abhijit Delvis HAND FINISHER.PRODUCTION TECHNOLOGIST Work Phone: [facility] 09-23-2023 11:04-0400 Systolic blood pressure 127 mm[Hg] Abhijit Delvis HAND FINISHER.PRODUCTION TECHNOLOGIST Work Phone: [facility] 08-26-2023 10:45-0500 Body height 160 cm Abhijit Delvis HAND FINISHER.PRODUCTION TECHNOLOGIST Work Phone: [facility] 08-26-2023 10:45-0500 Body temperature 98.01 [degF] Abhijit Delvis HAND FINISHER.PRODUCTION TECHNOLOGIST Work Phone: [facility] 08-26-2023 10:45-0500 Body weight 57.15 kg Abhijit Delvis HAND FINISHER.PRODUCTION TECHNOLOGIST Work Phone: [facility] 08-26-2023 10:45-0500 Diastolic blood pressure 75 mm[Hg] Abhijit Delvis HAND FINISHER.PRODUCTION TECHNOLOGIST Work Phone: [facility] 08-26-2023 10:45-0500 Heart rate 57 /min Abhijit Delvis HAND FINISHER.PRODUCTION TECHNOLOGIST Work Phone: [facility] 08-26-2023 10:45-0500 Systolic blood pressure 139 mm[Hg] Abhijit Delvis HAND FINISHER.PRODUCTION TECHNOLOGIST Work Phone: [facility] 08-06-2023 07:58-0500 Body height 160 cm Marianne CHARLES Work Phone: [facility] 08-06-2023 07:58-0500 Body mass index (BMI) [Ratio] 23.91 kg/m2 Marianne CHARLES Work Phone: [facility] 08-06-2023 07:58-0500 Body weight 61.24 kg Marianne CHARLES Work Phone: [facility] 08-05-2023 10:57-0500 Body height 160 cm Abhijit Delvis HAND FINISHER.PRODUCTION TECHNOLOGIST Work Phone: [facility] 08-05-2023 10:57-0500 Body temperature 98.29 [degF] Abhijit Delvis HAND FINISHER.PRODUCTION TECHNOLOGIST Work Phone: [facility] 08-05-2023 10:57-0500 Body weight 62.96 kg Abhijit Delvis HAND FINISHER.PRODUCTION TECHNOLOGIST Work Phone: [facility] 08-05-2023 10:57-0500 Diastolic blood pressure 81 mm[Hg] Abhijit Delvis HAND FINISHER.PRODUCTION TECHNOLOGIST Work Phone: [facility] 08-05-2023 10:57-0500 Heart rate 54 /min Abhijit Delvis HAND FINISHER.PRODUCTION TECHNOLOGIST Work Phone: [facility] 08-05-2023 10:57-0500 Systolic blood pressure 142 mm[Hg] Abhijit Delvis HAND FINISHER.PRODUCTION TECHNOLOGIST Work Phone: [facility] 06-15-2023 11:17-0500 Body height 160 cm Pacc 2 Work Phone: [facility] 06-15-2023 11:17-0500 Body temperature 97.81 [degF] Pacc 2 Work Phone: [facility] 06-15-2023 11:17-0500 Body weight 62.05 kg Pacc 2 Work Phone: [facility] 06-15-2023 11:17-0500 Diastolic blood pressure 83 mm[Hg] Pacc 2 Work Phone: [facility] 06-15-2023 11:17-0500 Heart rate 55 /min Pacc 2 Work Phone: [facility] 06-15-2023 11:17-0500 Respiratory rate 16 /min Pacc 2 Work Phone: [facility] 06-15-2023 11:17-0500 SaO2% (BldA) [Mass fraction] 98 % Pacc 2 Work Phone: [facility] 06-15-2023 11:17-0500 Systolic blood pressure 132 mm[Hg] Pacc 2 Work Phone: [facility] 05-31-2023 08:28-0500 Body height 160 cm Connie Crane MD Work Phone: [facility] 05-31-2023 08:28-0500 Body temperature 96.4 [degF] Connie Crane MD Work Phone: [facility] 05-31-2023 08:28-0500 Body weight 63.5 kg Connie Crane MD Work Phone: [facility] 05-31-2023 08:28-0500 Diastolic blood pressure 74 mm[Hg] Connie Crane MD Work Phone: [facility] 05-31-2023 08:28-0500 Heart rate 59 /min Connie Crane MD Work Phone: [facility] 05-31-2023 08:28-0500 Respiratory rate 12 /min Connie Crane MD Work Phone: [facility] 05-31-2023 08:28-0500 Systolic blood pressure 127 mm[Hg] Connie Crane MD Work Phone: [facility] 05-13-2023 09:43-0500 Body height 160 cm Connie Crane MD Work Phone: [facility] 05-13-2023 09:43-0500 Body temperature 96.8 [degF] Connie Crane MD Work Phone: [facility] 05-13-2023 09:43-0500 Body weight 65.32 kg Connie Crane MD Work Phone: [facility] 05-13-2023 09:43-0500 Diastolic blood pressure 71 mm[Hg] Connie Crane MD Work Phone: [facility] 05-13-2023 09:43-0500 Heart rate 51 /min Connie Crane MD Work Phone: [facility] 05-13-2023 09:43-0500 Respiratory rate 12 /min Connie Crane MD Work Phone: [facility] 05-13-2023 09:43-0500 Systolic blood pressure 113 mm[Hg] Connie Crane MD Work Phone: [facility] 05-03-2023 10:26-0400 Body height 160 cm Connie Crane MD Work Phone: [facility] 05-03-2023 10:26-0400 Body temperature 98.4 [degF] Connie Crane MD Work Phone: [facility] 05-03-2023 10:26-0400 Body weight 62.14 kg Connie Crane MD Work Phone: [facility] 05-03-2023 10:26-0400 Diastolic blood pressure 65 mm[Hg] Connie Crane MD Work Phone: [facility] 05-03-2023 10:26-0400 Heart rate 55 /min Connie Crane MD Work Phone: [facility] 05-03-2023 10:26-0400 SaO2% (BldA) [Mass fraction] 100 % Connie Crane MD Work Phone: [facility] 05-03-2023 10:26-0400 Systolic blood pressure 105 mm[Hg] Connie Crane MD Work Phone: [facility] 04-13-2023 12:58-0400 Body height 160 cm Abhijit Delvis HAND FINISHER.PRODUCTION TECHNOLOGIST Work Phone: [facility] 04-13-2023 12:58-0400 Body temperature 98.71 [degF] Abhijit Delvis HAND FINISHER.PRODUCTION TECHNOLOGIST Work Phone: [facility] 04-13-2023 12:58-0400 Body weight 64.14 kg Abhijit Delvis HAND FINISHER.PRODUCTION TECHNOLOGIST Work Phone: [facility] 04-13-2023 12:58-0400 Diastolic blood pressure 68 mm[Hg] Abhijit Delvis HAND FINISHER.PRODUCTION TECHNOLOGIST Work Phone: [facility] 04-13-2023 12:58-0400 Heart rate 56 /min Abhijit Delvis HAND FINISHER.PRODUCTION TECHNOLOGIST Work Phone: [facility] 04-13-2023 12:58-0400 Systolic blood pressure 104 mm[Hg] Abhijit Delvis HAND FINISHER.PRODUCTION TECHNOLOGIST Work Phone: [facility] 03-18-2023 10:01-0400 Body height 160 cm Connor Bartltet MD Work Phone: [facility] 03-18-2023 10:01-0400 Body weight 61.24 kg Connor Bartlett MD Work Phone: [facility] 03-18-2023 10:01-0400 Diastolic blood pressure 71 mm[Hg] Connor Bartlett MD Work Phone: [facility] 03-18-2023 10:01-0400 Heart rate 67 /min Connor Bartlett MD Work Phone: [facility] 03-18-2023 10:01-0400 SaO2% (BldA) [Mass fraction] 98 % Connor Bratlett MD Work Phone: [facility] 03-18-2023 10:01-0400 Systolic blood pressure 105 mm[Hg] Connor Bartlett MD Work Phone: [facility] 03-11-2023 08:54-0400 Body height 160 cm Zuly Nery PA-C Work Phone: [facility] 03-11-2023 08:54-0400 Body weight 61.24 kg Posey Nery PA-C Work Phone: [facility] 03-11-2023 08:54-0400 Diastolic blood pressure 78 mm[Hg] Posey Nery PA-C Work Phone: [facility] 03-11-2023 08:54-0400 Heart rate 63 /min Posey Nery PA-C Work Phone: [facility] 03-11-2023 08:54-0400 Respiratory rate 16 /min Posey Nery PA-C Work Phone: [facility] 03-11-2023 08:54-0400 SaO2% (BldA) [Mass fraction] 98 % Posey Nrey PA-C Work Phone: [facility] 03-11-2023 08:54-0400 Systolic blood pressure 116 mm[Hg] Posey Nery PA-C Work Phone: [facility] 02-25-2023 12:44-0400 Body height 160 cm Connie Crane MD Work Phone: [facility] 02-25-2023 12:44-0400 Body temperature 97.59 [degF] Connie Crane MD Work Phone: [facility] 02-25-2023 12:44-0400 Body weight 59.88 kg Connie Crane MD Work Phone: [facility] 02-25-2023 12:44-0400 Diastolic blood pressure 77 mm[Hg] Connie Crane MD Work Phone: [facility] 02-25-2023 12:44-0400 Heart rate 68 /min Connie Crane MD Work Phone: [facility] 02-25-2023 12:44-0400 SaO2% (BldA) [Mass fraction] 100 % Connie Crane MD Work Phone: [facility] 02-25-2023 12:44-0400 Systolic blood pressure 120 mm[Hg] Connie Crane MD Work Phone: [facility] 02-08-2023 10:24-0400 Body height 160 cm Connie Crane MD Work Phone: [facility] 02-08-2023 10:24-0400 Body temperature 97.5 [degF] Connie Crane MD Work Phone: [facility] 02-08-2023 10:24-0400 Body weight 60.78 kg Connie Crane MD Work Phone: [facility] 02-08-2023 10:24-0400 Diastolic blood pressure 73 mm[Hg] Connie Crane MD Work Phone: [facility] 02-08-2023 10:24-0400 Heart rate 56 /min Connie Crane MD Work Phone: [facility] 02-08-2023 10:24-0400 SaO2% (BldA) [Mass fraction] 99 % Connie Crane MD Work Phone: [facility] 02-08-2023 10:24-0400 Systolic blood pressure 113 mm[Hg] Connie Crane MD Work Phone: [facility] 01-12-2023 08:48-0400 Body height 160 cm Abhijit Delvis HAND FINISHER.PRODUCTION TECHNOLOGIST Work Phone: [facility] 01-12-2023 08:48-0400 Body temperature 97 [degF] Abhijit Delvis HAND FINISHER.PRODUCTION TECHNOLOGIST Work Phone: [facility] 01-12-2023 08:48-0400 Body weight 63.05 kg Abhijit Delvis HAND FINISHER.PRODUCTION TECHNOLOGIST Work Phone: [facility] 01-12-2023 08:48-0400 Diastolic blood pressure 59 mm[Hg] Abhijit Delvis HAND FINISHER.PRODUCTION TECHNOLOGIST Work Phone: [facility] 01-12-2023 08:48-0400 Heart rate 71 /min Abhijit Delvis HAND FINISHER.PRODUCTION TECHNOLOGIST Work Phone: [facility] 01-12-2023 08:48-0400 Systolic blood pressure 105 mm[Hg] Abhijit Delvis HAND FINISHER.PRODUCTION TECHNOLOGIST Work Phone: [facility] 12-16-2022 10:34-0400 Body height 160 cm Pacc 2 Work Phone: [facility] 12-16-2022 10:34-0400 Body temperature 97.2 [degF] Pacc 2 Work Phone: [facility] 12-16-2022 10:34-0400 Body weight 63.32 kg Pacc 2 Work Phone: [facility] 12-16-2022 10:34-0400 Diastolic blood pressure 73 mm[Hg] Pacc 2 Work Phone: [facility] 12-16-2022 10:34-0400 Heart rate 68 /min Pacc 2 Work Phone: [facility] 12-16-2022 10:34-0400 SaO2% (BldA) [Mass fraction] 98 % Pacc 2 Work Phone: [facility] 12-16-2022 10:34-0400 Systolic blood pressure 132 mm[Hg] Pacc 2 Work Phone: [facility] 10-14-2022 14:53-0400 Body height 160.02 cm Holland G Furlong Work Phone: [facility] 250 DO Work Phone: 10-14-2022 14:53-0400 Body mass index (BMI) [Ratio] 24.45 kg/m2 Holland G Furlong Work Phone: [facility] 250 DO Work Phone: 10-14-2022 14:53-0400 Body surface area Derived from formula 1.65 m2 Holland G Furlong Work Phone: [facility] 250 DO Work Phone: 10-14-2022 14:53-0400 Body weight 62.6 kg Holland G Furlong Work Phone: [facility] 250 DO Work Phone: 10-14-2022 14:53-0400 Diastolic blood pressure 70 mm[Hg] Holland G Furlong Work Phone: [facility] 250 DO Work Phone: 10-14-2022 14:53-0400 Heart rate 64 /min Holland G Furlong Work Phone: [facility] 250 DO Work Phone: 10-14-2022 14:53-0400 Systolic blood pressure 100 mm[Hg] Holland G Furlong Work Phone: [facility] 250 DO Work Phone: 10-06-2022 19:25-0400 Diastolic blood pressure 78 mm[Hg] DO Holland Furlong Work Phone: [facility] 10-06-2022 19:25-0400 Heart rate 73 /min DO Holland Furlong Work Phone: [facility] 10-06-2022 19:25-0400 Respiratory rate 20 /min DO Holland Furlong Work Phone: [facility] 10-06-2022 19:25-0400 SaO2% (BldA) [Mass fraction] 96 % DO Holland Furlong Work Phone: [facility] 10-06-2022 19:25-0400 Systolic blood pressure 115 mm[Hg] DO Holland Furlong Work Phone: [facility] 10-06-2022 16:36-0400 Body height 160.02 cm DO Holland Furlong Work Phone: [facility] 10-06-2022 16:36-0400 Body weight 61.23 kg DO Holland Furlong Work Phone: [facility] 10-06-2022 16:35-0400 Body temperature 97.6 [degF] DO Holland Furlong Work Phone: [facility] 09-21-2022 08:35-0400 Body height 160 cm Connie Crane MD Work Phone: [facility] 09-21-2022 08:35-0400 Body temperature 97.9 [degF] Connie Crane MD Work Phone: [facility] 09-21-2022 08:35-0400 Body weight 58.97 kg Connie Crane MD Work Phone: [facility] 09-21-2022 08:35-0400 Diastolic blood pressure 64 mm[Hg] Connie Crane MD Work Phone: [facility] 09-21-2022 08:35-0400 Heart rate 57 /min Connie Crane MD Work Phone: [facility] 09-21-2022 08:35-0400 Systolic blood pressure 117 mm[Hg] Connie Crane MD Work Phone: [facility] 09-18-2022 11:32-0400 Body temperature 98.2 [degF] DO Holland Furlong Work Phone: [facility] 09-18-2022 11:32-0400 Diastolic blood pressure 76 mm[Hg] DO Holland Furlong Work Phone: [facility] 09-18-2022 11:32-0400 Heart rate 53 /min DO Holland Furlong Work Phone: [facility] 09-18-2022 11:32-0400 Respiratory rate 20 /min DO Holland Furlong Work Phone: [facility] 09-18-2022 11:32-0400 SaO2% (BldA) [Mass fraction] 96 % DO Holland Furlong Work Phone: [facility] 09-18-2022 11:32-0400 Systolic blood pressure 121 mm[Hg] DO Holland Furlong Work Phone: [facility] 09-18-2022 06:00-0400 Body weight 64.5 kg DO Holland Furlong Work Phone: [facility] 09-17-2022 15:29-0400 Body height 160.02 cm DO Holland Furlong Work Phone: [facility] 09-08-2022 13:05-0500 Body height 160 cm Campbell Tristan MD Work Phone: [facility] 09-08-2022 13:05-0500 Body weight 62.6 kg Campbell Tristan MD Work Phone: [facility] 08-31-2022 10:07-0500 Body height [address] Work Phone: [facility] 08-31-2022 10:07-0500 Body weight 59.[address] Work Phone: [facility] 04-03-2022 12:09-0400 Body height 162.6 cm Sarah Thompsonclay CHACKO Work Phone: [facility] 04-03-2022 12:09-0400 Body weight 73.[address] Work Phone: [facility] 03-13-2022 12:40-0400 Body height 160.5 cm Campbell Tristan MD Work Phone: [facility] 02-27-2022 10:09-0400 Body height 162.6 cm Pacc 1 Work Phone: [facility] 02-27-2022 10:09-0400 Body temperature 97.59 [degF] Pacc 1 Work Phone: [facility] 02-27-2022 10:09-0400 Body weight 75.75 kg Pacc 1 Work Phone: [facility] 02-27-2022 10:09-0400 Diastolic blood pressure 63 mm[Hg] Pacc 1 Work Phone: [facility] 02-27-2022 10:09-0400 Heart rate 55 /min Pacc 1 Work Phone: [facility] 02-27-2022 10:09-0400 Respiratory rate 16 /min Pacc 1 Work Phone: [facility] 02-27-2022 10:09-0400 SaO2% (BldA) [Mass fraction] 99 % Pacc 1 Work Phone: [facility] 02-27-2022 10:09-0400 Systolic blood pressure 123 mm[Hg] Pacc 1 Work Phone: [facility] 11-05-2021 13:10-0400 Diastolic blood pressure 78 mm[Hg] Edwar Perez MD Work Phone: [facility] 11-05-2021 13:10-0400 Heart rate 70 /min Edwar Perez MD Work Phone: [facility] 11-05-2021 13:10-0400 Respiratory rate 18 /min Edwar Perez MD Work Phone: [facility] 11-05-2021 13:10-0400 SaO2% (BldA) [Mass fraction] 97 % Edwar Perez MD Work Phone: [facility] 11-05-2021 13:10-0400 Systolic blood pressure 129 mm[Hg] Edwar Perez MD Work Phone: [facility] 11-05-2021 12:45-0400 Body temperature 96.8 [degF] Edwar Perez MD Work Phone: [facility] 11-05-2021 09:35-0400 Body height 161.3 cm Edwar Perez MD Work Phone: [facility] 11-05-2021 09:35-0400 Body weight 84.37 kg Edwar Perez MD Work Phone: [facility] 10-08-2021 12:30-0400 Diastolic blood pressure 67 mm[Hg] Edwar Perez MD Work Phone: [facility] 10-08-2021 12:30-0400 Heart rate 76 /min Edwar Perez MD Work Phone: [facility] 10-08-2021 12:30-0400 Respiratory rate 16 /min Edwar Perez MD Work Phone: [facility] 10-08-2021 12:30-0400 SaO2% (BldA) [Mass fraction] 96 % Edwar Perez MD Work Phone: [facility] 10-08-2021 12:30-0400 Systolic blood pressure 132 mm[Hg] Edwar Perez MD Work Phone: [facility] 10-08-2021 12:05-0400 Body temperature 97.5 [degF] Edwar Perez MD Work Phone: [facility] 10-08-2021 08:58-0400 Body height 161.3 cm Edwar Perez MD Work Phone: [facility] 10-08-2021 08:58-0400 Body weight 90.27 kg Edwar Perez MD Work Phone: [facility] 09-25-2021 13:48-0400 Body height 161.3 cm Edwar Perez MD Work Phone: [facility] 09-25-2021 13:48-0400 Body weight 93.44 kg Edwar Perez MD Work Phone: [facility] Encounters Encounter Date Encounter Type Care Provider Facility Start: 07-17-2024 End: 07-17-2024 Bamboo flowsheet Elvira Martin PT [facility] Start: 07-17-2024 End: 07-17-2024 Bamboo flowsheet Elvira Martin PT [facility] Start: 07-17-2024 End: 07-17-2024 ambulatory Elvira Martin PT [facility] Comment on above: S/P arthroscopy of l eft shoulder (Primary Dx); Internal derangement of left shoulder Start: 07-14-2024 End: 07-14-2024 Bamboo flowsgavin CHARLES Work Phone: [facility] Start: 07-14-2024 End: 07-14-2024 Bamboo flowsgavin CHARLES Work Phone: [facility] Start: 07-14-2024 End: 07-14-2024 Postop follow up visit related to original px Marianne CHARLES Work Phone: [facility] Comment on above: S/P arthroscopy of l eft shoulder (Primary Dx) Start: 07-14-2024 End: 07-14-2024 ambulatory MARIANNE DANG Not Available Start: 07-12-2024 End: 07-12-2024 Bamboo flowsheet Elvira Martin PT [facility] Start: 07-12-2024 End: 07-12-2024 Bamboo flowsheet Elvira Martin PT [facility] Start: 07-12-2024 End: 07-12-2024 ambulatory Elvira Martin PT [facility] Comment on above: S/P arthroscopy of l eft shoulder (Primary Dx); Internal derangement of left shoulder Start: 07-07-2024 End: 07-07-2024 Bamboo flowsheet Ban Dave MANAGER HOME [facility] Start: 07-07-2024 End: 07-07-2024 Bamboo flowsheet Ban Dave MANA[facility] HOME [facility] Start: 07-07-2024 End: 07-07-2024 ambulatory Ban Dave MANA[facility] Comment on above: S/P arthroscopy of l eft shoulder (Primary Dx); Internal derangement of left shoulder Start: 07-06-2024 End: 07-06-2024 Bamboo flowsheet Jerrell Hardy MANA[facility] HOME [facility] Start: 07-06-2024 End: 07-06-2024 Bamboo flowsheet Jerrell Hardy MANA[facility] HOME [facility] Start: 07-06-2024 End: 07-06-2024 ambulatory Jerrell Hardy MANA[facility] HOME [facility] Comment on above: S/P arthroscopy of l eft shoulder (Primary Dx); Internal derangement of left shoulder Start: 06-30-2024 End: 06-30-2024 Bamboo flowsheet Elvira Martin PT [facility] Start: 06-30-2024 End: 06-30-2024 Bamboo flowsheet Elvira Martin PT [facility] Start: 06-30-2024 End: 06-30-2024 ambulatory Elvira Martin PT [facility] Comment on above: S/P arthroscopy of l eft shoulder (Primary Dx); Internal derangement of left shoulder Start: 06-29-2024 End: 06-29-2024 Orders Only Holland Bowers DO Work Phone: [facility] Start: 06-27-2024 End: 06-27-2024 Bamboo flowsheet Jerrell Hardy MANAGER HOME [facility] Start: 06-27-2024 End: 06-27-2024 Bamboo flowsheet Jerrell Hardy MANAGER HOME [facility] Start: 06-27-2024 End: 06-27-2024 ambulatory Jerrell Hardy MANA[facility] Comment on above: S/P arthroscopy of l eft shoulder (Primary Dx); Internal derangement of left shoulder Start: 06-26-2024 End: 06-26-2024 ambulatory Elvira Martin PT [facility] Comment on above: S/P arthroscopy of l eft shoulder (Primary Dx); Internal derangement of left shoulder; Generalized abdominal pain Start: 06-26-2024 End: 06-26-2024 Telephone encounter Jr. Leonard Ac DO Work Phone: [facility] Comment on above: Refill Start: 06-23-2024 End: 06-23-2024 ambulatory Jerrell Hardy MANA[facility] Comment on above: S/P arthroscopy of l eft shoulder (Primary Dx); Internal derangement of left shoulder Start: 06-21-2024 End: 06-21-2024 Bamboo flowsheet Ban Dave MANAGER HOME [facility] Start: 06-21-2024 End: 06-21-2024 Bamboo flowsheet Ban Dave MANAGER HOME [facility] Start: 06-21-2024 End: 06-21-2024 ambulatory Ban Dave MANA[facility] Comment on above: S/P arthroscopy of l eft shoulder (Primary Dx); Internal derangement of left shoulder Start: 06-19-2024 End: 06-19-2024 Bamboo flowsheet Jerrell Hayley MANA[facility] HOME [facility] Start: 06-19-2024 End: 06-19-2024 Bamboo flowsheet Jerrell Hardy MANA[facility] Start: 06-19-2024 End: 06-19-2024 ambulatory Jerrell Hayley MANA[facility] Comment on above: S/P arthroscopy of l eft shoulder (Primary Dx); Internal derangement of left shoulder Start: 06-16-2024 End: 06-19-2024 ambulatory Jerrell Hardy MANA[facility] Comment on above: S/P arthroscopy of l eft shoulder (Primary Dx); Internal derangement of left shoulder Start: 06-16-2024 End: 06-16-2024 Bamboo flowsheet Jerrell Hardy MANA[facility] Start: 06-16-2024 End: 06-16-2024 Bamboo flowsheet Jerrell Hardy MANA[facility] Start: 06-14-2024 End: 06-14-2024 ambulatory Ban Dave MANA[facility] Comment on above: S/P arthroscopy of l eft shoulder (Primary Dx); Internal derangement of left shoulder Start: 06-13-2024 End: 06-13-2024 Bamboo flowsheet Elvirajorden Martin PT [facility] Start: 06-13-2024 End: 06-13-2024 Bamboo flowsheet Elvira Martin PT [facility] Start: 06-13-2024 End: 06-13-2024 ambulatory Elvira Mario PT [facility] Comment on above: Internal derangement of left shoulder (Primary Dx); S/P arthroscopy of left shoulder Start: 06-09-2024 End: 06-09-2024 Bamboo flowsheet Marianne CHARLES Work Phone: [facility] Start: 06-09-2024 End: 06-09-2024 Bamboo flowsheet Marianne CHARLES Work Phone: [facility] Start: 06-09-2024 End: 06-09-2024 ambulatory MARIANNE DANG Not Available Start: 06-09-2024 End: 06-09-2024 Postop follow up visit related to original px Marianne CHARLES Work Phone: [facility] Comment on above: S/P arthroscopy of l eft shoulder (Primary Dx); Internal derangement of left shoulder Start: 06-07-2024 End: 06-07-2024 Telephone encounter Jr. Leonard Ac DO Work Phone: [facility] [facility] Comment on above: refill Start: 05-29-2024 End: 05-29-2024 Telephone encounter Jr. Leonard Ac DO Work Phone: [facility] Start: 05-24-2024 End: 05-24-2024 Refill Gilbetro Caputo ENVIRONMENTAL SAFETY SPECIALIST Work Phone: [facility] Comment on above: Internal derangement of left shoulder (Primary Dx) Start: 05-23-2024 End: 05-23-2024 ambulatory [facility] Start: 05-09-2024 End: 05-09-2024 Clinisync Result Encounter Jr. Leonard Ovalle Stepanic DO Work Phone: [facility] External Department Unsolicited Start: 05-09-2024 End: 05-09-2024 Clinisync Result Encounter Jr. Leonard Ovalle Stepanic DO Work Phone: [facility] External Department Unsolicited Start: 05-01-2024 End: 05-01-2024 Bamboo flowsheet Jr. Leonard Ovalle Stepanic DO Work Phone: [facility] Start: 05-01-2024 End: 05-01-2024 Bamboo flowsheet Jr. Leonard Ovalle Stepanic DO Work Phone: [facility] Start: 05-01-2024 End: 05-01-2024 Office outpatient visit 25 minutes Jr. Leonard Ovalle Stepgrace DO Work Phone: [facility] Comment on above: Preop examination (P rimary Dx); Calcific tendonitis of left shoulder; Internal derangement of left shoulder Start: 05-01-2024 End: 05-01-2024 Preprocedural examination done Jr. Leonadr Ac DO Work Phone: [facility] Healthcare Start: 05-01-2024 End: 05-01-2024 Orders Only Maci Lars Pavon HAND FINISHER-PRODUCTION TECHNOLOGIST [facility] Start: 04-27-2024 End: 04-27-2024 ambulatory MACI PAVON [facility] Start: 04-27-2024 End: 04-27-2024 Office outpatient visit 25 minutes Maci Lars Pavon HAND FINISHER-PRODUCTION TECHNOLOGIST [facility] Comment on above: Acquired hypothyroid ism (Primary Dx); Surgical wound infection; Candidiasis of skin; Overweight (BMI 25.0-29.9); Motion sickness, initial encounter Start: 04-27-2024 End: 04-27-2024 ambulatory MACI PAVON [facility] Start: 04-07-2024 End: 04-07-2024 ambulatory [facility] Start: 03-15-2024 End: 03-15-2024 ambulatory VENKATA STANLEY [place] Start: 03-14-2024 End: 03-14-2024 ambulatory [facility] Start: 03-03-2024 End: 03-03-2024 ambulatory [facility] Start: 02-29-2024 End: 02-29-2024 Telephone encounter Marianne CHARLES Work Phone: [facility] Comment on above: Surgery Start: 02-22-2024 End: 02-22-2024 Bamboo flowsheet Zulema Clark DPM Work Phone: [facility] Start: 02-22-2024 End: 02-22-2024 Bamboo flowsheet Zulema Clark DPM Work Phone: [facility] Start: 02-22-2024 End: 02-22-2024 Office outpatient new 45 minutes Zulema Clark DPM Work Phone: [facility] Comment on above: Puentes's neuroma of right foot (Primary Dx); Right foot pain; Right ankle tendonitis; Equinus contracture of right ankle; Stress fracture of right foot, initial encounter Start: 02-22-2024 End: 02-22-2024 ambulatory ZULEMA CLARK Not Available Start: 02-21-2024 End: 02-21-2024 ambulatory LEONARD GUZMAN Not Available Start: 02-18-2024 End: 02-18-2024 ambulatory [facility] Start: 02-16-2024 End: 02-16-2024 ambulatory [facility] Start: 02-10-2024 End: 02-10-2024 ambulatory HOLLAND Jojo ACEVEDOABENA [facility] Start: 02-07-2024 ambulatory [facility] Start: 02-07-2024 End: 02-07-2024 ambulatory [facility] Start: 01-25-2024 End: 01-25-2024 ambulatory MARIANNE DANG Not Available Start: 01-20-2024 End: 06-21-2024 Telephone encounter Lizy Lancasterbrittanie SOTO [facility] Start: 12-21-2023 End: 12-21-2023 ambulatory [facility] Start: 12-17-2023 Evaluation and management of inpatient CJ PETERSON [facility] Start: 12-16-2023 Emergency department patient visit MICAH XAVIER [facility] Start: 12-16-2023 End: 12-18-2023 Evaluation and management of inpatient MIGUEL GEOVANNYSINDY [facility] Start: 12-08-2023 ambulatory [facility] Start: 12-08-2023 ambulatory [facility] Start: 12-08-2023 End: 12-08-2023 ambulatory [facility] Start: 11-24-2023 End: 11-24-2023 ambulatory GILBERTO CAPUTO Not Available Start: 11-03-2023 End: 11-03-2023 ambulatory LEONARD GUZMAN Not Available Start: 10-13-2023 End: 10-13-2023 ambulatory LEONARD GUZMAN STEPGRACE Not Available Start: 10-12-2023 End: 10-12-2023 ambulatory [facility] Start: 10-05-2023 End: 10-05-2023 ambulatory Holland Bowers DO Work Phone: [facility] Internal Medicine - Family Medicine Comment on above: Closed nondisplaced fracture of anterior process of right calcaneus with routine healing, subsequent encounter (Primary Dx); Postmenopausal Start: 09-28-2023 End: 09-28-2023 ambulatory SOLOMON VAL [facility] Start: 09-23-2023 End: 09-24-2023 ambulatory ABHIJIT EDMONDSON Facility:[facility] Start: 09-23-2023 End: 09-23-2023 Patient encounter procedure Abhijit Edmondson HAND FINISHER.PRODUCTION TECHNOLOGIST Work Phone: General Surgery Comment on above: Encounter for postop erative wound check (Primary Dx) Start: 09-17-2023 End: 09-17-2023 ambulatory MARIANNE DANG Not Available Start: 09-13-2023 End: 09-13-2023 ambulatory MARIANNE DANG Not Available Start: 09-08-2023 End: 09-08-2023 ambulatory MARIANNE DANG Not Available Start: 09-03-2023 End: 09-03-2023 ambulatory MARIANNE DANG Not Available Start: 08-26-2023 End: 2023 ambulatory ABHIJIT DELVIS Facility:[facility] Start: 08-26-2023 End: 08-26-2023 Patient encounter procedure Abhijit Edmondson HAND FINISHER.PRODUCTION TECHNOLOGIST Work Phone: General Surgery Comment on above: Encounter for postop erative wound check (Primary Dx) Start: 08-25-2023 End: 08-25-2023 ambulatory LINDA [facility] Start: 08-06-2023 End: 08-06-2023 Office outpatient visit 15 minutes Marianne Dang PA Work Phone: [facility] Comment on above: Acute pain of left s houlder (Primary Dx) Start: 08-06-2023 End: 08-06-2023 ambulatory MARIANNE DANG Not Available Start: 08-05-2023 End: 08-06-2023 ambulatory ABHIJIT EDMONDSON Facility:[facility] Start: 08-05-2023 End: 08-05-2023 Patient encounter procedure Abhijit Edmondson HAND FINISHER.PRODUCTION TECHNOLOGIST Work Phone: General Surgery Comment on above: Encounter for postop erative wound check (Primary Dx) Start: 07-22-2023 End: 07-23-2023 ambulatory ABHIJIT EDMONDSON Facility:[facility] Start: 07-06-2023 End: 07-06-2023 ambulatory LINDA [facility] Start: 06-29-2023 End: 07-01-2023 ambulatory HOLLAND BOWERS Facility:[facility] Start: 06-22-2023 End: 07-05-2023 ambulatory HOLLAND BOWERS [facility] Start: 06-15-2023 Telephone encounter Carleen Mistry LPN Pre Anesthesia Comment on above: Medical Clearance (M edical clearance and some records requested.) Start: 06-15-2023 End: 06-15-2023 ambulatory ABHIJIT EDMONDSON Facility:[facility] Start: 06-15-2023 Encounter for other preprocedural examination HOLLAND BOWERS [facility] Start: 06-15-2023 End: 06-15-2023 Admission to [place] [id number] Work Phone: [facility] Start: 06-15-2023 End: 06-15-2023 [place] [id number] Work Phone: Pre Anesthesia Comment on above: Preoperative examina tion; Incisional hernia, without obstruction or gangrene; Infected hernioplasty mesh, sequela; Essential hypertension; Hyperlipidemia, unspecified hyperlipidemia type; GAGE (obstructive sleep apnea); Chronic obstructive pulmonary disease, unspecified COPD type (HCC); Gastroesophageal reflux disease without esophagitis; Congenital 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; SVT (supraventricular tachycardia); History of non-ST elevation myocardial infarction (NSTEMI) Start: 06-15-2023 End: 06-15-2023 Preprocedural examination done [facility] 2 Work Phone: [facility] Work Phone: Start: 06-08-2023 ambulatory Connie Crane MD Work Phone: [facility] Comment on above: 06.29.23 Cure (Abdom inal wound exploration 2 hours los 1) Start: 06-08-2023 Preprocedural examination done Connie Crane MD Work Phone: [facility] Start: 05-31-2023 End: 05-31-2023 ambulatory [facility] Start: 05-31-2023 End: 06-01-2023 [facility] Start: 05-31-2023 End: 05-31-2023 Patient encounter procedure Connie Crane MD Work Phone: General Surgery Comment on above: Abdominal wall fluid collections (Primary Dx) Start: 05-20-2023 [facility] Start: 05-20-2023 End: 05-20-2023 Subsequent hospital visit by physician [facility] Comment on above: Acute postoperative pain [G89.18] Start: 05-13-2023 Telephone encounter Holland Bowers Work Phone: NOC Comment on above: Follow Up Phone Call (All clear) Start: 05-13-2023 End: 05-14-2023 ambulatory HOLLAND MELENDEZ LOMETA Facility:[facility] Start: 05-13-2023 End: 05-13-2023 Patient encounter procedure Connie Crane MD Work Phone: General Surgery Comment on above: Abdominal wall fluid collections (Primary Dx); Acute postoperative pain Start: 05-06-2023 End: 05-06-2023 [facility] [facility] Facility:[facility] Start: 05-03-2023 End: 05-06-2023 Evaluation and management of inpatient CONNIE CRANE Facility:[facility] Start: 05-03-2023 End: 05-04-2023 ambulatory Connor Bartlett MD Work Phone: Neurology Pain Comment on above: Upcoming injections 05/07 Start: 05-03-2023 End: 05-03-2023 Patient encounter procedure Connie Crane MD Work Phone: General Surgery Comment on above: S/P repair of ventra l hernia (Primary Dx) Start: 04-29-2023 Telephone encounter Connor cormier MD Work Phone: [facility] Comment on above: Preparations For Pro cedures (Pre-injection instructions) Start: 04-15-2023 Telephone encounter Connor cormier MD Work Phone: [facility] Comment on above: Preparations For Pro cedures (Pre-injection instructions) Start: 04-13-2023 End: 04-14-2023 ambulatory [facility]HIJIT [facility] Facility:[facility] Start: 04-13-2023 End: 04-13-2023 Patient encounter procedure Abhijit Edmondson HAND FINISHER.PRODUCTION TECHNOLOGIST Work Phone: General Surgery Comment on above: Infection in abdomen (HCC) Start: 04-06-2023 End: 04-07-2023 [facility] Facility:[facility] Start: 03-18-2023 End: 03-19-2023 [facility] Facility:[facility] Start: 03-18-2023 End: 03-18-2023 Office outpatient visit 15 minutes Connor Bartlett MD Work Phone: Neurology Pain Comment on above: Abdominal wall pain (Primary Dx) Start: 03-11-2023 End: 03-11-2023 ambulatory [facility] Facility:[facility] Start: 03-11-2023 End: 03-11-2023 Patient encounter procedure Zuly Montgomery PA-C Work Phone: Neurology Pain Comment on above: S/P repair of ventra l hernia; Lower abdominal pain Start: 02-25-2023 End: 02-25-2023 Patient encounter procedure Connie Crane MD Work Phone: General Surgery Comment on above: S/P repair of ventra l hernia (Primary Dx) Start: 02-25-2023 End: 02-26-2023 ambulatory HOLLAND BOWERS Facility:[facility] Start: 02-18-2023 Orders Only Abhijit Edmondson HAND FINISHER.PRODUCTION TECHNOLOGIST Work Phone: General Surgery Comment on above: S/P repair of ventra l hernia (Primary Dx); Lower abdominal pain Start: 02-09-2023 Orders Only Abhijit Delvis HAND FINISHER.PRODUCTION TECHNOLOGIST Work Phone: General Surgery Comment on above: S/P repair of ventra l hernia (Primary Dx) Start: 02-08-2023 End: 02-09-2023 amb[address] [facility] Facility:[facility] Start: 02-08-2023 End: 02-08-2023 Patient encounter procedure Connie Crane MD Work Phone: General Surgery Comment on above: S/P repair of ventra l hernia (Primary Dx); Mild protein-calorie malnutrition (HCC); Obesity, Class III, BMI 40-49.9 (morbid obesity) (HCC) Start: 02-01-2023 End: 02-01-2023 Emergency department patient visit [facility] Facility:[facility] Start: 01-28-2023 End: 01-29-2023 ambulatory [facility] Facility:[facility] Start: 01-22-2023 End: 01-23-2023 [facility] Start: 01-15-2023 Patient Msg Abhijit Delvis HAND FINISHER.PRODUCTION TECHNOLOGIST Work Phone: General Surgery Comment on above: Pain Refill Start: 01-14-2023 Orders Only Abhijit Delvis HAND FINISHER.PRODUCTION TECHNOLOGIST Work Phone: General Surgery Comment on above: S/P repair of ventra l hernia (Primary Dx); Infection in abdomen (HCC) Start: 01-12-2023 Telephone encounter Yrn SANTANA Comment on above: Follow Up Phone Call (All Clear) Start: 01-12-2023 End: 01-13-2023 ambulatory ABHIJIT DELVIS Facility:[facility] Start: 01-12-2023 End: 01-12-2023 Patient encounter procedure Abhijit Delvis HAND FINISHER.PRODUCTION TECHNOLOGIST Work Phone: General Surgery Comment on above: S/P repair of ventra l hernia (Primary Dx); Postoperative pain Start: 01-11-2023 Telephone encounter Connie Crane MD Work Phone: General Surgery Comment on above: Patient Update (Call ed yesterday regarding drainage from surgery site, now abdominal pain, medication not working. - suggested she come to our ED claims she was told not necessary.. ) Start: 01-10-2023 Telephone encounter Gina narvaez MD Work Phone: General Surgery Comment on above: Patient Question Start: 01-09-2023 Telephone encounter Jerrod ahuja MD Work Phone: General Surgery Comment on above: Patient Question Start: 01-04-2023 End: 01-04-2023 ambulatory HOLLAND AL LOMETA Facility:[facility] Start: 12-30-2022 End: 01-04-2023 Evaluation and management of [facility] Start: 12-16-2022 End: 12-17-2022 ambulatory CONNIE CRANE Facility:[facility] Start: 12-16-2022 End: 12-17-2022 ambulatory [facility] Start: 12-16-2022 Encounter for other preprocedural examination HOLLAND [facility] Start: 12-16-2022 End: 12-16-2022 Admission to establishment [facility] 2 Work Phone: [facility] Start: 12-16-2022 End: 12-16-2022 ambulatory [facility] 2 Work Phone: Pre Anesthesia Comment on above: Pre-op evaluation (P rimary Dx); Congenital 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; GAGE (obstructive sleep apnea); Chronic obstructive pulmonary disease, unspecified COPD type ([facility]); History of non-ST elevation myocardial infarction (NSTEMI); Former smoker; Hyperlipidemia, unspecified hyperlipidemia type; Gastroesophageal reflux disease without esophagitis; 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 Eileen Sinha Facility: Start: 11-23-2022 End: 11-23-2022 ambulatory SARAH GREGORY Facility:[facility] Start: 11-21-2022 Refill Campbell byrd MD Work Phone: General Surgery Comment on above: Refill Request Start: 11-16-2022 End: 11-17-[address] HOLLAND BOWERS Facility:[facility] Start: 10-22-2022 End: 10-23-2022 ambulatory MACI PAVON Facility:[facility] Start: 10-21-[address] HOLLAND BOWERS Fac ility:[facility] Start: 10-14-2022 Office outpatient vi sit 25 minutes Holland Bowers Work Phone: [facility] 250 DO Work Phone: Start: 10-14-2022 Patient encounter procedure Holland Bowers Work Phone: [facility] 250 DO Work Phone: Start: 10-14-2022 ambulatory Ms. Eileen Sinha Facility: Start: 10-06-2022 End: 10-06-2022 Emergency department patient visit Jermaine Sinha Facility:[facility] Start: 10-06-2022 End: 10-06-2022 Emergency department patient visit DO Holland Kristinaministeriomartin Work Phone: [facility] Work Phone: Start: 09-29-2022 End: 09-29-2022 ambulatory Sylvia Pycraft RT(R) Radiology Ct Scan Comment on above: Radiology CT Start: 09-29-2022 Patient encounter procedure Sylvia Pycraft RT(R) [facility] [place] Start: 09-24-2022 ambulatory Connie Crane MD Work Phone: [facility] Comment on above: 12.30.22 Cure (Comple x abdominal wall reconstruction/ Paraesophageal hernia repair 6 hours los 5) Start: 09-24-2022 Preprocedural examination done Connie Geovany Bong Beffa MD Work Phone: [facility] Start: 09-21-2022 End: 09-21-2022 Patient encounter procedure oCnnie Crane MD Work Phone: General Surgery Comment on above: Recurrent incisional hernia (Primary Dx) Start: 09-16-2022 End: 09-18-2022 ambulatory [facility] Facility:[facility] Start: 09-16-2022 End: 09-18-2022 Evaluation and management of inpatient DO Holland Acevedolong Work Phone: [facility] [place] [facility] Work Phone: Start: 09-16-2022 End: 09-18-2022 observation encounter DO Holland Acevedolong Work Phone: [facility] Work Phone: Start: 09-16-2022 End: 09-16-[address] JACOB OJEDA Facility: Start: 09-15-2022 Orders Only Campbell byrd MD Work Phone: General Surgery Start: 09-08-2022 End: 09-08-2022 ambulatory CAMPBELL TRISTAN Facility:[facility] Start: 09-08-2022 End: 09-08-2022 Patient encounter procedure Campbell Tristan MD Work Phone: General Surgery Comment on above: S/P bariatric surger y (Primary Dx) Start: 08-31-2022 End: 08-31-[address] Work Phone: Endocrinology BMI Comment on above: S/P partial gastrect fer (Primary Dx); BMI 23.0-23.9, adult; Dietary counseling and surveillance Start: 08-31-2022 End: 08-31-2022 Telemedicine consultation with patient Sarah Gregory RD Work Phone: [facility] Start: 08-11-2022 End: 08-12-2022 ambulatory MACI PAVON Facility:[facility] Start: 05-06-2022 Orders Only Micah Aquino MD , PhD Work Phone: General Surgery Comment on above: Refill Request Start: 04-03-2022 End: 04-03-[address] Work Phone: Endocrinology BMI Comment on above: S/P partial gastrect fer (Primary Dx); Overweight (BMI 25.0-29.9); Dietary counseling and surveillance Start: 04-03-2022 End: 04-03-2022 Telemedicine consultation with patient Sarah Gregory RD Work Phone: [facility] Start: 03-25-2022 Telephone encounter Regine Briceño RN General Surgery Comment on above: Certified Physician Assistant - O ther Start: 03-19-2022 Refill Campbell byrd MD Work Phone: General Surgery Comment on above: Refill Request Start: 03-16-2022 Refill Campbell byrd MD Work Phone: General Surgery Comment on above: Refill Request Start: 03-15-2022 Refill Campbell byrd MD Work Phone: General Surgery Comment on above: Refill Request Start: 03-13-2022 End: 03-13-2022 Patient encounter procedure Campbell Tristan MD Work Phone: General Surgery Comment on above: Bariatric surgery [facility] (Primary Dx) Start: 03-12-2022 Telephone encounter Lily Red RN General Surgery Comment on above: Post Op Start: 02-27-2022 End: 02-27-2022 Admission to establishment Pacc [place] 1 Work Phone: [facility] Start: 02-27-2022 End: 02-27-2022 ambulatory Pacc [place] 1 Work Phone: Pre Anesthesia Comment on above: Pre-op exam (Primary Dx); S/P gastrectomy; Gastric leak; Chronic obstructive pulmonary disease, unspecified COPD type (HCC); GAGE (obstructive sleep apnea); Congenital 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 Start: 02-27-2022 End: 02-27-2022 Preprocedural examination done Pacc Kiley Godwin Work Phone: Pre Anesthesia Start: 02-16-2022 ambulatory Lily Red RN Gen eral Surgery Comment on above: 03/11/2022 Start: 02-16-2022 Preprocedural examination done Lily Red RN General Surgery Start: 02-05-2022 Telephone encounter Lily Red RN General Surgery Comment on above: Schedule Surgery Start: 01-22-2022 Telephone encounter Lily Red RN General Surgery Comment on above: VBC My Chart Follow- up Start: 01-06-2022 End: 01-06-2022 ambulatory Campbell Tristan MD Work Phone: General Surgery Comment on above: Gastric leak (Primar y Dx) Start: 01-06-2022 End: 01-06-2022 Telemedicine consultation with patient Campbell Tristan MD Work Phone: [facility] Start: 12-22-2021 Telephone encounter Sarai Domínguez RN General Surgery Comment on above: Certified Physician Assistant - O ther (pt has home care post op can draw labs vs lab) Start: 12-19-2021 Nutrition therapy Patrick castañeda DO Work Phone: General Surgery Comment on above: Mild protein-calorie malnutrition (HCC) (Primary Dx) Start: 12-13-2021 ambulatory Janell Ruano APRN.CNP Work Phone: Critical Care Start: 12-12-2021 End: 12-13-[address] ANNETTE SINHA Facility:[facility] Start: 12-02-2021 End: 12-02-2021 Orders Only Edwar Perez MD Work Phone: Gastroenterology Comment on above: Nausea Nausea [R11.0] Complications of bar iatric procedures [K95.89] Start: 11-28-2021 Orders Only Edwar Perez MD Work Phone: Gastroenterology Comment on above: Complications of bar iatric procedures (Primary Dx); Gastric anastomotic leak Start: 11-27-2021 End: 11-27-2021 Subsequent hospital visit by physician Ct Prep [facility] Comment on above: CT ABD/PEL W IVCON C omplications of bariatric procedures [K95.89] Complications of bar iatric procedures [K95.89] Start: 11-14-2021 E-mail encounter ania burger caregiver [facility] Provider [facility] Start: 11-14-2021 Follow-up encounter [facility] Provider [facility]is[facility] johnsonenterology Comment on above: Follow up - Dr. Carrington Solomon Start: 11-13-2021 Orders Only Edwar Perez MD Work Phone: Gastroenterology Comment on above: Complications of bar iatric procedures (Primary Dx); Gastric anastomotic leak Patient Update Start: 11-05-2021 End: 11-05-2021 Subsequent hospital visit by physician Edwar Perez MD Work Phone: Gastroenterology Comment on above: Complications of bar iatric procedures [K95.89] Start: 11-04-2021 End: 11-04-2021 ambulatory Edwar Perez MD Work Phone: Gastroenterology Comment on above: Complications of bar iatric procedures (Primary Dx); Gastric anastomotic leak; S/P laparoscopic sleeve gastrectomy; Generalized abdominal pain Start: 11-04-2021 End: 11-04-2021 Telemedicine consultation with patient Edwar Perez MD Work Phone: [facility] Start: 10-29-2021 Telephone encounter Inna Coulter RNplastic welder Comment on above: Endoscopy Call Start: 10-29-2021 End: 10-29-2021 Subsequent hospital visit by physician Ct Prep [facility] Comment on above: Gastric anastomotic leak [K91.89] Start: 10-14-2021 Orders Only Edwar Perez MD Work Phone: Gastroenterology Comment on above: Complications of bar iatric procedures (Primary Dx); Gastric fistula Start: 10-13-2021 Telephone encounter Edwar Perez MD Work Phone: Gastroenterology Comment on above: Sooner appt and ques tion about steroids Start: 10-08-2021 End: 10-08-2021 Orders Only Edwar Perez MD Work Phone: Gastroenterology Comment on above: Gastric anastomotic leak (Primary Dx); Complications of bariatric procedures Complications of bar iatric procedures [K95.89] Start: 10-01-2021 Telephone encounter Venkata Vizcaino INTERIOR WALL ASSEMBLER Gastroenterology Comment on above: Appointment Start: 09-30-2021 Orders Only Edwar Perez MD Work Phone: Gastroenterology Comment on above: Complications of bar iatric procedures (Primary Dx); Gastric fistula Previous scans and i mages. Start: 09-25-2021 Telephone encounter Edwar Perez MD Work Phone: Gastroenterology Comment on above: [facility] Start: 09-25-2021 End: 09-25-2021 ambulatory Edwar Perez MD Work Phone: Gastroenterology Comment on above: Complication of francisca atric procedure (Primary Dx); Generalized abdominal pain; Anastomotic leak of stomach; Complications of bariatric procedures; S/P laparoscopic sleeve gastrectomy Start: 09-25-2021 End: 09-25-2021 Telemedicine consultation with patient Edwar Perez MD Work Phone: [facility] Start: 05-06-2020 End: 05-09-2020 Patient encounter procedure LEONARD AC JR [facility] Start: 05-06-2020 End: 05-08-2020 Subsequent hospital visit by physician Wilfred Cool Mri Room 1 [facility] Imaging MRI Comment on above: Internal derangement of right shoulder Start: 07-19-2018 End: 07-20-2018 Patient encounter procedure DEFAULT PHYSICIAN Facility:[facility] Imaging result normal Holland quinones Work Phone: -[facility] 250 DO Work Phone: Procedures Date Procedure Procedure Detail Performing Clinician Start: 05-09-2024 ALL CBC WITH AUTO DIFF Jr. Leonard Ac DO Work Phone: Start: 03-03-2024 Adult depression scr eening assessment Maci Pavon HAND FINISHER-PRODUCTION TECHNOLOGIST Work Phone: Start: 02-10-2024 Follow-up visit Follow-up [facility] Start: 06-30-2023 H/O: surgery S/P debridement Filomena kalpana Edmondson HAND FINISHER.PRODUCTION TECHNOLOGIST Work Phone: Start: 06-17-2023 Adult depression scr eening assessment Hollandaugust Acevedolong DO Work Phone: Start: 05-20-2023 Ct abdomen & pelvis w/o contrast material Connie Crane MD Work Phone: Start: 12-16-2022 Antibody screen [facility] Comment on above: Order Comment: Speci men Type: BLOOD SPECIMENOrdering Facility: [facility] Address: [address] [place] [address] Performed By: #### T [id number] ####CC MAIN BLOOD BANKCLIA [id number] [address] [place] Start: 11-09-2022 Mammography Abhijit curtis HAND FINISHER.PRODUCTION TECHNOLOGIST Work Phone: Start: 10-06-2022 Plain chest X-ray DO De nnis Furlong Work Phone: Start: 09-17-2022 [facility] Angio DO D hermilo Furlong Work Phone: Start: 09-17-2022 DO Holland Furlong Work Phone: Start: 12-02-2021 XR UPPER GI SINGLE CONTRAST Edwar Perez MD Work Phone: Start: 12-02-2021 Ct abdomen w/o contr ast material Edwar Perez MD Work Phone: Start: 11-27-2021 Ct abdomen & pelvis w/contrast material Edwar Perez MD Work Phone: Start: 11-05-2021 Esophagoscp rig gresham soral hypopharynx crv esoph Edwar Perez MD Work Phone: Start: 10-29-2021 Ct abdomen & pelvis w/contrast material Edwar Perez MD Work Phone: Start: 10-08-2021 Esophagoscp rig gresham soral hypopharynx crv esoph Edwar Perez MD Work Phone: Start: 02-15-2018 Adult depression scr eening assessment Edwar Perez MD Work Phone: Start: 01-06-2018 Lipid 1996 panel - S girish or Plasma Connor Bartlett MD Work Phone: Start: 07-05-2016 Total colonoscopy Nba Felixng Work Phone: Abdominoplasty Holland Acevedol anisa Work Phone: Arthroscopy of knee Holland Acevedolong Work Phone: section Holland Uribe Fu rlong Work Phone: Elbow joint operations Nba Acevedolong Work Phone: Esophagogastrostomy, antesternal or antethoracic Holland Acevedolong Work Phone: Hernia repair Holland Felix ng Work Phone: Hysterectomy Holland Felixn g Work Phone: Procedure on back Holland Uribe F urlong Work Phone: Reduction mammoplasty Holland Acevedolong Work Phone: Plan of Treatment Date Care Activity Detail Author Start: 06-16-2032 DTaP,Tdap and Td Vaccines (2 - Td or Tdap) DTaP,Tdap and Td Vaccines (2 - Td or Tdap) [facility] Start: 06-16-2032 Urine microalbumin profile DTaP,Tdap,Td Vaccine (2 - Td or Tdap) [facility] Start: 2031 PNEUMOCOCCAL (3 - PPSV23 if available, else PCV20) PNEUMOCOCCAL (3 - PPSV23 if available, else PCV20) [facility] Start: 2031 PNEUMOCOCCAL (3 - PPSV23 or PCV20) PNEUMOCOCCAL (3 - PPSV23 or PCV20) [facility] Start: 2031 Pneumococcal vaccination [facility] Start: 07-01-2026 Diabetes Screening Diabetes Screenin g [facility] Start: 05-05-2026 Diabetes Screening Diabetes Screenpr g [facility] Start: 05-04-2026 Diabetes Screening Diabetes Screenin g [facility] Start: 02-01-2026 DIABETES SCREEN DIABETES SCREEN [facility] Start: 02-01-2026 [facility] Start: 01-04-2026 DIABETES SCREEN DIABETES SCREEN [facility] Start: 12-16-2025 DIABETES SCREEN DIABETES SCREEN [facility] Start: 04-27-2025 Adult BMI Screening Adult BMI Screen ing [facility] Start: 04-27-2025 Tobacco Screening Tobacco Screening [facility] Start: 03-09-2025 DIABETES SCREEN DIABETES SCREEN [facility] Start: 03-03-2025 Depression Screening Depression Scre ening [facility] Start: 12-17-2024 DIABETES SCREEN DIABETES SCREEN [facility] Start: 12-13-2024 DIABETES SCREEN DIABETES SCREEN [facility] Start: 09-22-2024 BP Controlled (<130/80) BP Controlle d (<130/80) [facility] Start: 08-24-2024 End: 08-24-2024 Patient encounter procedure 08/24/2024 10:40 AM EST Office Visit [facility] Internal Medicine - Family Medicine [address] [place] [address] Maci Pavon, HAND FINISHER-PRODUCTION TECHNOLOGIST [address] [place] [address] [facility] Internal Medicine - Family Medicine Start: 08-21-2024 End: 08-21-2024 ambulatory 08/21/2024 8:30 AM EST Treatment [facility] [address] [place] [address] Elvira Martin, PT [facility] Start: 08-17-2024 End: 08-17-2024 ambulatory 08/17/2024 8:30 AM EST Treatment [facility] [address] [place] [address] Jerrell Hardy, MANAGER HOME [facility] Start: 08-14-2024 End: 08-14-2024 ambulatory 08/14/2024 8:30 AM EST Treatment [facility] [address] [facility] [address] [place] [address] Jerrell Hardy, MANAGER HOME [facility] Start: 08-11-2024 End: 08-11-2024 Patient encounter procedure 08/11/2024 9:15 AM EST Office Visit [facility] [address] [facility] [place] [address] Marianne Dang, PA [address] [facility] [address] [place] [address] [facility] Start: 08-10-2024 End: 08-10-2024 ambulatory 08/10/2024 8:30 AM EST Treatment [facility] [address] [facility] [address] [place] [address] Jerrell Hardy, MANAGER HOME [facility] Start: 08-08-2024 End: 08-08-2024 ambulatory 08/08/2024 8:00 AM EST Treatment [facility] [address] [facility] [address] [place] [address] Elvira Martin, PT [facility] Start: 08-07-2024 End: 08-07-2024 ambulatory 08/07/2024 8:30 AM EST Treatment [facility] [address] [facility] [address] [place] [address] Jerrell Hardy, MANAGER HOME [facility] Start: 08-04-2024 End: 08-04-2024 ambulatory 08/04/2024 8:30 AM EST Treatment [facility] [address] [place] [address] Elvira Martin, PT [facility] Start: 08-01-2024 End: 08-01-2024 ambulatory 08/01/2024 8:30 AM EST Treatment [facility] [address] [place] [address] Ban Dave, MANAGER HOME [facility] Start: 07-28-2024 End: 07-28-2024 ambulatory 07/28/2024 8:30 AM EST Treatment [facility] [address] [place] [address] Jerrell Hardy, MANAGER HOME [facility] Start: 07-26-2024 End: 07-26-2024 ambulatory 07/26/2024 8:30 AM EST Treatment [facility] [address] [place] [address] Ban Dave, MANAGER HOME [facility] Start: 07-20-2024 End: 07-20-2024 ambulatory 07/20/2024 8:30 AM EST Treatment [facility] [address] [place] [address] Jerrell Hardy, MANAGER HOME [facility] Start: 07-17-2024 End: 07-17-2024 ambulatory 07/17/2024 9:00 AM EST Treatment [facility] [address] [place] [address] Elvira Martin, PT [facility] Start: 07-14-2024 End: 07-14-2024 Patient encounter procedure 07/14/2024 9:30 AM EST Office Visit [facility] [address] [place] [address] Marianne Dang, PA [address] [place] [address] [facility] Start: 07-12-2024 End: 07-12-2024 ambulatory [facility] Comment on above: Arrived Start: 07-10-2024 End: 07-10-2024 ambulatory 07/10/2024 8:00 AM EST Treatment [facility] [address] [facility] [address] [place] [address] Jerrell Hardy, MANAGER HOME [facility] Start: 07-07-2024 End: 07-07-2024 ambulatory 07/07/2024 8:00 AM EST Treatment [facility] [address] [place] [address] Ban Dave, MANAGER HOME [facility] Start: 07-06-2024 End: 07-06-2024 ambulatory [facility] Comment on above: Arrived Start: 06-30-2024 End: 06-30-2024 ambulatory 06/30/2024 7:00 AM EST Treatment [facility] [address] [facility] [address] [place] [address] Elvira Martin, PT [facility] Start: 06-27-2024 End: 06-27-2024 ambulatory [facility] Comment on above: Arrived Start: 06-26-2024 End: 06-26-2024 ambulatory 06/26/2024 6:00 PM EST Treatment [facility] [address] [facility] [address] [place] [address] Elvira Martin, PT [facility] Start: 06-23-2024 End: 06-23-2024 Patient encounter procedure 06/23/2024 9:45 AM EST Office Visit [facility] [address] [place] [id number] Marianne Dang, PA [address] [facility] [address] [place] [address] [facility] Start: 06-23-2024 End: 06-23-2024 ambulatory 06/23/2024 8:00 AM EST Treatment [facility] [address] [facility] [address] [place] [address] Elvira Martin, PT [facility] Start: 06-21-2024 End: 06-21-2024 ambulatory [facility] Comment on above: Arrived Start: 06-19-2024 End: 06-19-2024 ambulatory [facility] Comment on above: Arrived Start: 06-17-2024 Adult BMI Screening Adult BMI Screen ing [facility] Start: 06-17-2024 Depression Screening Depression Scre ening [facility] Start: 06-17-2024 Tobacco Screening Tobacco Screening [facility] Start: 06-16-2024 End: 06-16-2024 ambulatory [facility] Comment on above: S/P arthroscopy of l eft shoulder (Primary Dx); Internal derangement of left shoulder Start: 06-14-2024 End: 06-14-2024 ambulatory 06/14/2024 8:00 AM EST Treatment [facility] [address] [facility] [address] [place] [address] Ban Dave PTA [facility] Start: 06-09-2024 End: 06-09-2024 Patient encounter procedure 06/09/2024 9:30 AM EST Office Visit [facility] [address] [place] [address] Marianne Dang PA [address] [facility] [address] [place] [address] [facility] Start: 06-07-2024 End: 06-07-2024 Patient encounter procedure 06/07/2024 2:30 PM EST Office Visit [facility] [address] [place] [phone] Venkata Stanley PAColtenC [address] [place], [place] [phone] [facility] Start: 05-31-2024 BP Controlled (<130/80) BP Controlle d (<130/80) [facility] Start: 05-25-2024 End: 05-25-2024 Patient encounter procedure 05/25/2024 1:15 PM EST Procedure Visit [facility] Jr. Leonard Ac, DO [address] [facility] [address] [place] [address] [facility] Start: 05-13-2024 BP Controlled (<130/80) BP Controlle d (<130/80) [facility] Start: 05-03-2024 BP Controlled (<130/80) BP Controlle d (<130/80) [facility] Start: 05-01-2024 End: 04-18-2025 Basic metabolic 1998 panel - Serum or Plasma Basic metabolic panel Lab Routine Preop examination Expected: 05/01/2024 (Approximate), Expires: 04/18/2025 [facility] Work Phone: Comment on above: Expected: 05/01/2024 (Approximate), Expires: 04/18/2025 Start: 05-01-2024 End: 04-18-2025 CBC W Auto Differential panel - Blood CBC auto differential Lab Routine Preop examination Expected: 05/01/2024 (Approximate), Expires: 04/18/2025 [facility] Comment on above: Expected: 05/01/2024 (Approximate), Expires: 04/18/2025 Start: 05-01-2024 End: 05-01-2024 Patient encounter procedure 05/01/2024 11:15 AM EDT Office Visit [facility] [address] [place] [phone] Jr. Leonard Ac, DO [address] [facility] [address] [place] [address] Preop examination (Primary Dx) [facility] Comment on above: Preop examination (P rimary Dx) Start: 04-27-2024 End: 04-27-2025 Thyrotropin [Units/volume] in Serum or Plasma TSH Lab Routine Acquired hypothyroidism Expected: 04/27/2024 (Approximate), Expires: 04/27/2025 [facility] Work Phone: Comment on above: Expected: 04/27/2024 (Approximate), Expires: 04/27/2025 Start: 04-13-2024 BP Controlled (<130/80) BP Controlle d (<130/80) [facility] Start: 03-18-2024 BP Controlled (<130/80) BP Controlle d (<130/80) [facility] Start: 03-11-2024 BP CONTROLLED (<130/80) BP CONTROLLE D (<130/80) [facility] Start: 03-05-2024 Influenza vaccination [facility] Start: 02-26-2024 BP CONTROLLED (<130/80) BP CONTROLLE D (<130/80) [facility] Start: 02-22-2024 End: 02-22-2024 Patient encounter procedure 02/22/2024 1:30 PM EDT Office Visit [facility] [address] [facility] [place] [phone] Zulema Clark DPManny [address] [place], [place] [phone] Right foot pain; Right ankle tendonitis [facility] Comment on above: Right foot pain; Right ankle tendonitis Start: 02-09-2024 BP CONTROLLED (<130/80) BP CONTROLLE D (<130/80) [facility] Start: 01-13-2024 BP CONTROLLED (<130/80) BP CONTROLLE D (<130/80) [facility] Start: 12-30-2023 End: 12-30-2023 Patient encounter procedure 12/30/2023 4:00 PM EDT Office Visit [facility] [address] [place] [address] [facility] Start: 11-10-2023 Mammography [facility] Start: 11-10-2023 Screening for malign ant neoplasm of breast [facility] Start: 09-03-2023 End: 09-03-2023 Patient encounter procedure 09/03/2023 8:00 AM EST Office Visit [facility] [address] [facility] [address] [place] [address] Marianne Dang PA [address] [address] [facility] Start: 07-05-2023 Depression Assessment Depression Ass essment [facility] Start: 06-20-2023 Screening for malign ant neoplasm of colon Colon Cancer Screening Annual FOBT [facility] Start: 03-05-2023 Covid-19 Vaccine () Covid-19 Vaccine () [facility] Start: 03-05-2023 Influenza vaccination [facility] Start: 01-12-2023 End: 03-14-2023 Bacteria identified in Wound by Culture ABSCESS AND WOUND CULTURE WITH GRAM STAIN Microbiology Routine S/P repair of ventral hernia Expected: 01/12/2023, Expires: 03/14/2023 [facility] Work Phone: Comment on above: Expected: 01/12/2023 , Expires: 03/14/2023 Start: 01-06-2023 Lipid 1996 panel - Serum or Plasma Lipid Screening [facility] Start: 01-06-2023 Lipid panel Lipid Screening [facility] Start: 01-06-2023 LIPID SCREEN LIPID SCREEN [facility] Start: 11-25-2022 FUV, Provider: Eileen Escobar, Status: Pen, Time: 1:00 PM FUV, Provider: Eileen Escobar, Status: Pen, Time: 1:00 PM -[facility] 250 DO Work Phone: Start: 09-24-2022 End: 09-25-2023 aPTT in Platelet poor plasma by Coagulation assay ACTIVATED PTT Lab Routine Preoperative examination Incisional hernia, without obstruction or gangrene Infected hernioplasty mesh, sequela Expected: 09/24/2022, Expires: 09/25/2023 [facility] Work Phone: Comment on above: Expected: 09/24/2022 , Expires: 09/25/2023 Start: 09-24-2022 End: 09-25-2023 CBC W Auto Differential panel - Blood CBC + DIFF Lab Routine Preoperative examination Incisional hernia, without obstruction or gangrene Infected hernioplasty mesh, sequela Expected: 09/24/2022, Expires: 09/25/2023 [facility] Work Phone: Comment on above: Expected: 09/24/2022 , Expires: 09/25/2023 Start: 09-24-2022 End: 09-25-2023 Comprehensive metabolic 2000 panel - Serum or Plasma COMP METABOLIC PANEL Lab Routine Preoperative examination Incisional hernia, without obstruction or gangrene Infected hernioplasty mesh, sequela Expected: 09/24/2022, Expires: 09/25/2023 [facility] Work Phone: Comment on above: Expected: 09/24/2022 , Expires: 09/25/2023 Start: 09-24-2022 End: 09-25-2023 PT panel - Platelet poor plasma by Coagulation assay PROTHROMBIN TIME/PT Lab Routine Preoperative examination Incisional hernia, without obstruction or gangrene Infected hernioplasty mesh, sequela Expected: 09/24/2022, Expires: 09/25/2023 [facility] Work Phone: Comment on above: Expected: 09/24/2022 , Expires: 09/25/2023 Start: 09-24-2022 End: 09-25-2023 TYPE AND SCREEN,30 DAY TYPE AND SCREEN,30 DAY Blood Bank Routine Preoperative examination Incisional hernia, without obstruction or gangrene Infected hernioplasty mesh, sequela Expected: 09/24/2022 (Approximate), Expires: 09/25/2023 [facility] Work Phone: Comment on above: Expected: 09/24/2022 (Approximate), Expires: 09/25/2023 Start: 09-18-2022 [facility] Start: 09-16-2022 Hospital admission [facility] Start: 09-16-2022 [facility] Start: 09-08-2022 End: 11-08-2022 25-hydroxyvitamin D3 [Mass/volume] in Serum or Plasma VITAMIN D 25 HYDROXY Lab Routine S/P bariatric surgery Expected: 09/08/2022, Expires: 11/08/2022 [facility] Work Phone: Comment on above: Expected: 09/08/2022 , Expires: 11/08/2022 Start: 09-08-2022 End: 11-08-2022 Cobalamin (Vitamin B12) [Mass/volume] in Serum or Plasma VITAMIN B12 BLOOD Lab Routine S/P bariatric surgery Expected: 09/08/2022, Expires: 11/08/2022 [facility] Work Phone: Comment on above: Expected: 09/08/2022 , Expires: 11/08/2022 Start: 09-08-2022 End: 11-08-2022 Folate [Mass/volume] in Serum or Plasma FOLATE SERUM Lab Routine S/P bariatric surgery Expected: 09/08/2022, Expires: 11/08/2022 [facility] Work Phone: Comment on above: Expected: 09/08/2022 , Expires: 11/08/2022 Start: 09-08-2022 End: 11-08-2022 Iron and Iron binding capacity panel - Serum or Plasma IRON + TIBC Lab Routine S/P bariatric surgery Expected: 09/08/2022, Expires: 11/08/2022 [facility] Work Phone: Comment on above: Expected: 09/08/2022 , Expires: 11/08/2022 Start: 07-05-2022 DEPRESSION ASSESSMENT DEPRESSION ASS ESSMENT [facility] Start: 03-05-2022 Influenza vaccination INFLUENZA (#1) [facility] Start: 02-16-2022 End: 04-18-2022 CBC W Auto Differential panel - Blood CBC + DIFF Lab Routine H/O gastric sleeve Gastric leak Expected: 02/16/2022 (Approximate), Expires: 04/18/2022 [facility] Work Phone: Comment on above: Expected: 02/16/2022 (Approximate), Expires: 04/18/2022 Start: 02-16-2022 End: 04-18-2022 Coagulation factor VIII activity actual/normal in Platelet poor plasma by Coagulation assay FACTOR VIII:C ASSAY Lab Routine Preoperative examination Expected: 02/16/2022, Expires: 04/18/2022 [facility] Work Phone: Comment on above: Expected: 02/16/2022 , Expires: 04/18/2022 Start: 02-16-2022 End: 04-18-2022 Comprehensive metabolic 2000 panel - Serum or Plasma COMP METABOLIC PANEL Lab Routine H/O gastric sleeve Gastric leak Expected: 02/16/2022 (Approximate), Expires: 04/18/2022 [facility] Work Phone: Comment on above: Expected: 02/16/2022 (Approximate), Expires: 04/18/2022 Start: 02-16-2022 End: 04-18-2022 Prealbumin [Mass/volume] in Serum or Plasma PREALBUMIN BLD Lab Routine Preoperative examination Expected: 02/16/2022, Expires: 04/18/2022 [facility] Work Phone: Comment on above: Expected: 02/16/2022 , Expires: 04/18/2022 Start: 02-16-2022 End: 04-18-2022 TYPE AND SCREEN,30 DAY TYPE AND SCREEN,30 DAY Blood Bank Routine H/O gastric sleeve Gastric leak Expected: 02/16/2022, Expires: 04/18/2022 [facility] Work Phone: Comment on above: Expected: 02/16/2022 , Expires: 04/18/2022 Start: 01-27-2022 End: 03-29-2022 Prealbumin [Mass/volume] in Serum or Plasma PREALBUMIN BLD Lab Routine Gastric leak Expected: 01/27/2022, Expires: 03/29/2022 [facility] Work Phone: Comment on above: Expected: 01/27/2022 , Expires: 03/29/2022 Start: 12-19-2021 End: 02-18-2022 C reactive protein [Mass/volume] in Serum or Plasma C-REACTIVE PROTEIN (CRP) Lab Routine Mild protein-calorie malnutrition (HCC) Expected: 12/19/2021, Expires: 02/18/2022 [facility] Work Phone: Comment on above: Expected: 12/19/2021 , Expires: 02/18/2022 Start: 12-19-2021 End: 02-18-2022 Prealbumin [Mass/volume] in Serum or Plasma PREALBUMIN BLD Lab Routine Mild protein-calorie malnutrition (HCC) Expected: 12/19/2021, Expires: 02/18/2022 [facility] Work Phone: Comment on above: Expected: 12/19/2021 , Expires: 02/18/2022 Start: 11-07-2021 End: 11-07-2022 Ct abdomen & pelvis w/contrast material CT ABD/PEL W IVCON Radiology Routine Gastric anastomotic leak Complications of bariatric procedures Expected: 11/07/2021, Expires: 11/07/2022 [facility] Work Phone: Comment on above: Expected: 11/07/2021 , Expires: 11/07/2022 Start: 09-03-2021 COVID-19 VACCINE (4 - Booster for Pfizer series) COVID-19 VACCINE (4 - Booster for Pfizer series) [facility] Start: 07-05-2021 DEPRESSION ASSESSMENT DEPRESSION ASS ESSMENT [facility] Start: 07-01-2021 COVID-19 VACCINE (4 - Booster for Pfizer series) COVID-19 VACCINE (4 - Booster for Pfizer series) [facility] Start: 03-04-2021 DIABETES SCREEN DIABETES SCREEN [facility] Start: 02-15-2019 Adult depression screening assessment DEPRESSION SCREENING [facility] Start: 05-22-2017 PNEUMOCOCCAL (2 - PPSV23 or PCV20) PNEUMOCOCCAL (2 - PPSV23 or PCV20) [facility] Start: 2016 Screening for malign ant neoplasm of breast Breast cancer screen [place], [place] Start: 2016 Screening for malign ant neoplasm of colon Colon cancer screen colonoscopy [place], [place] Start: 2016 Shingles Vaccine (1 of 2) Shingles Vaccine (1 of 2) [place] Start: 2016 SHINGRIX VACCINE (1 of 2) SHINGRIX VACCINE (1 of 2) [facility] Start: 2011 COLOGUARD (FIT-DNA) COLOGUARD (FIT-D NA) [facility] Start: 2011 Colonoscopy COLONOSCOPY [facility] Start: 2011 COLORECTAL CANCER SCREENING COLORECTAL CANCER SCREENING [facility] Start: [address] COLONOGRAPHY [facility] Start: 2011 FECAL OCCULT BLOOD FECAL OCCULT BLOO D [facility] Start: 2011 Screening for malign ant neoplasm of colon [facility] Start: 2011 SIGMOIDOSCOPY SIGMOIDOSCOPY [facility] Start: 2008 PAP TESTING PAP TESTING [facility] Start: 2006 Lipid panel Lipid screen [place] Start: 2006 Mammography MAMMOGRAM [facility] Start: 1996 HPV TESTING HPV TESTING [facility] Start: 1996 Screening for malign ant neoplasm of cervix [facility] Start: 1996 Zoledronic acid therapy ALPHA- 1 ANTITRYPSIN DEFICIENCY SCREENING [facility] Start: 1987 PAP TESTING PAP TESTING [facility] Start: 1987 Screening for malign ant neoplasm of cervix [facility] Start: 1985 DTaP/Tdap/Td vaccine (1 - Tdap) DTaP/Tdap/Td vaccine (1 - Tdap) [place], [place] Start: 1985 Hepatitis B Vaccine (1 of 3 - 19+ 3-dose series) Hepatitis B Vaccine (1 of 3 - 19+ 3-dose series) [facility] Start: 1985 Urine microalbumin profile [facility] Start: 1984 Adult BMI Follow Up Plan Adult BMI Follow Up Plan [facility] Start: 1984 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 ANNUAL PCP TEAM CHRONIC DISEASE VISIT [facility] Start: 1984 BP CONTROLLED (<130/80) BP CONTROLLE D (<130/80) [facility] Start: 1984 HEPATITIS C SCREENING HEPATITIS C [facility] Start: 1984 Hepatitis C screening Hepatitis C [facility] Start: 1981 HIV screening HIV screen [place] Start: 1966 HEPATITIS B (1 of 3 - 3-dose series) HEPATITIS B (1 of 3 - 3-dose series) [facility] Start: 1966 Hepatitis B Vaccine (1 of 3 - 3-dose series) Hepatitis B Vaccine (1 of 3 - 3-dose series) [facility] Start: 1966 Screening for malign ant neoplasm of colon [facility] End: 12-13-2022 Ct abdomen & pelvis w/contrast material CT ABD/PEL W IVCON Radiology Routine Complications of bariatric procedures Gastric anastomotic leak 1 Occurrences starting 11/13/2021 until 12/13/2022 [facility] Work Phone: Comment on above: 1 Occurrences starti ng 11/13/2021 until 12/13/2022 End: 10-21-2023 Ct abdomen & pelvis w/o contrast material CT ABD/PEL WO IVCON Radiology Routine Recurrent incisional hernia 1 Occurrences starting 09/21/2022 until 10/21/2023 [facility] Work Phone: Comment on above: 1 Occurrences starti ng 09/21/2022 until 10/21/2023 End: 06-11-2024 Ct abdomen & pelvis w/o contrast material CT ABD/PEL WO IVCON Radiology Routine Acute postoperative pain 1 Occurrences starting 05/13/2023 until 06/11/2024 [facility] Work Phone: Comment on above: 1 Occurrences starti ng 05/13/2023 until 06/11/2024 Ct abdomen w/o contr ast material CT ABDOMEN WO IVCON Radiology Today Nausea 12/02/2021 10:24 AM EDT [facility] Work Phone: End: 09-25-2023 ECG COMPLETE ECG COMPLETE ECG Routine Preoperative examination Incisional hernia, without obstruction or gangrene Infected hernioplasty mesh, sequela 1 Occurrences starting 09/24/2022 until 09/25/2023 [facility] Work Phone: Comment on above: 1 Occurrences starti ng 09/24/2022 until 09/25/2023 End: 09-30-2022 EGD - THERAPEUTIC, EUS, OR TUBE INTERVENTIONS EGD - THERAPEUTIC, EUS, OR TUBE INTERVENTIONS Endoscopy Routine Complications of bariatric procedures Gastric fistula 1 Occurrences starting 09/30/2021 until 09/30/2022 [facility] Work Phone: Comment on above: 1 Occurrences starti ng 09/30/2021 until 09/30/2022 End: 10-14-2022 EGD - THERAPEUTIC, EUS, OR TUBE INTERVENTIONS EGD - THERAPEUTIC, EUS, OR TUBE INTERVENTIONS Endoscopy Routine Complications of bariatric procedures Gastric fistula 1 Occurrences starting 10/14/2021 until 10/14/2022 [facility] Work Phone: Comment on above: 1 Occurrences starti ng 10/14/2021 until 10/14/2022 End: 05-06-2020 MRI SHOULDER RIGHT WO CONTRAST MRI SHOULDER RIGHT WO CONTRAST Imaging Routine Internal Derangement Of Right Shoulder 1 Occurrences starting 05/06/2020 until 05/06/2020 [facility] [place], [place] Comment on above: 1 Occurrences starti ng 05/06/2020 until 05/06/2020 Patient Education Chest Pain, Adult ED [facility] Work Phone: Patient referral [facility] Work Phone: REFER FOR ADMIT INTERVIEW REFER FOR ADMIT INTERVIEW Procedures Routine H/O gastric sleeve Gastric leak Ordered: 02/16/2022 [facility] Work Phone: Comment on above: Ordered: 02/16/2022 REFER FOR ADMIT INTERVIEW REFER FOR ADMIT INTERVIEW Procedures Routine Preoperative examination Incisional hernia, without obstruction or gangrene Infected hernioplasty mesh, sequela Ordered: 09/24/2022 [facility] Work Phone: Comment on above: Ordered: 09/24/2022 SPINE INTERVENTION PROCEDURE SPINE INTERVENTION PROCEDURE Procedures Routine Abdominal wall pain Ordered: 03/18/2023 [facility] Work Phone: Comment on above: Ordered: 03/18/2023 End: 04-27-2025 Thyroxine (T4) free [Mass/volume] in Serum or Plasma T4, free Lab Routine Acquired hypothyroidism 1 Occurrences starting 04/27/2024 until 04/27/2025 [employer] Comment on above: 1 Occurrences starti ng 04/27/2024 until 04/27/2025 End: 04-27-2025 Wound culture Wound culture Microbiology Routine Surgical wound infection 1 Occurrences starting 04/27/2024 until 04/27/2025 [employer] Comment on above: 1 Occurrences starti ng 04/27/2024 until 04/27/2025 XR Shoulder - left 2 Views XR shoulder 2+ views left Imaging Routine Acute pain of left shoulder 08/06/2023 8:28 AM EST [facility] Work Phone: End: 12-29-2022 XR UPPER GI SINGLE CONTRAST XR UPPER GI SINGLE CONTRAST Radiology Routine Complications of bariatric procedures Gastric anastomotic leak 1 Occurrences starting 11/28/2021 until 12/29/2022 [facility] Work Phone: Comment on above: 1 Occurrences starti ng 11/28/2021 until 12/29/2022 [facility] Immunizations Immunization Date Immunization Notes Care Provider [facility] 04-14-2023 influenza, injectabl e, quadrivalent, preservative free Holland Felixng DO Work Phone: [facility] 04-14-2023 influenza virus vacc ine, unspecified formulation Holland Felixng DO Work Phone: [facility] 06-16-2022 tetanus toxoid, redu maciej diphtheria toxoid, and acellular pertussis vaccine, adsorbed Holland Bowers Work Phone: [facility] 06-16-2022 zoster vaccine recombinant Holland Felixng Work Phone: [place] [id number] DO Work Phone: 06-16-2022 zoster vaccine, live Holland Acevedolong DO Work Phone: [facility] 04-20-2022 Pfizer COVID-19 Vac Bivalent 30 MCG/0.3ML Intramuscular Suspension Holland Bowers Work Phone: [facility] 04-20-2022 SARS-COV-2 (COVID-19 ) Vaccine, Unspecified Hollandaugust Acevedolong DO Work Phone: [facility] 04-13-2022 influenza, injectabl e, quadrivalent, preservative free [facility] Work Phone: 04-13-2022 zoster vaccine recombinant Holland Uribe Furlong [facility] Work Phone: 04-13-2022 zoster vaccine, live Holland Bowers DO Work Phone: [facility] 04-13-2022 influenza virus vacc ine, unspecified formulation Connor Bartlett MD Work Phone: [facility] 06-03-2021 influenza, injectabl e, quadrivalent, preservative free Pacc 1 Work Phone: [facility] 06-03-2021 pneumococcal polysaccharide vaccine, 23 valent Pacc 1 Work Phone: [facility] 05-06-2021 Pfizer-BioNTech COVI D-19 Vacc 30 MCG/0.3ML Intramuscular Suspension Holland Felixng Work [facility] Work Phone: 10-08-2020 Pfizer-BioNTech COVI D-19 Vacc 30 MCG/0.3ML Intramuscular Suspension Holland Acevedolong Work Phone: [facility] Work Phone: 09-17-2020 Pfizer-BioNTech COVI D-19 Vacc 30 MCG/0.3ML Intramuscular Suspension Holland Bowers Work Phone: [facility] 250 DO Work Phone: 04-19-2020 influenza, injectabl e, quadrivalent, preservative free Pacc 1 Work Phone: [facility] 04-23-2019 influenza, injectabl e, quadrivalent, preservative free Pacc 1 Work Phone: [facility] 05-04-2018 influenza, injectabl e, quadrivalent, contains preservative Pacc 1 Work Phone: [facility] 05-01-2018 Influenza, injectabl e, Madin Anita Canine Kidney, preservative free, quadrivalent Pacc 1 Work Phone: [facility] 04-21-2017 influenza virus vacc ine, unspecified formulation Pacc 1 Work Phone: [facility] 04-18-2017 influenza, seasonal, injectable, preservative free Pacc 1 Work Phone: [facility] 05-22-2016 pneumococcal conjuga te vaccine, 13 valent Edwar Perez MD Work Phone: [facility] 05-22-2016 pneumococcal vaccine , unspecified formulation Pacc 1 Work Phone: [facility] 05-15-2016 influenza, seasonal, injectable Edwar Perez MD Work Phone: [facility] 04-04-2016 influenza virus vacc ine, unspecified formulation Pacc 1 Work Phone: [facility] 06-01-2015 influenza, seasonal, injectable Pacc 1 Work Phone: [facility] 06-01-2015 influenza, seasonal, injectable, preservative free Pacc 1 Work Phone: [facility] Payers Date Payer Category Payer Medicare [id number] 07-05-2023 Medicare (Managed Care) ANTHEM M EDICARE ADVANTAGE [id number] 07-05-2023 Medicare HMO ANTHEM MEDICARE [id number] 07-05-2023 Medicare [id number] 02-02-2023 Unknown [id number] 09-16-2022 Self-pay [id number] 07-05-2022 Department of [facility] ([facility]ASTO and others) [id number] 07-05-2021 Medicare [id number] [id number]. [id number] 06-15-2021 Medicaid MEDICAID [facility] MEDICAID [id number] 06/15/2021-Present [phone] [address] [place] [address] Medicaid [id number] 06-15-2021 Medicaid [id number]. 1.13.159.2. [id number] 05-08-2021 Medicare [id number] 1.2.840.404659.1.13.159.2. [id number] 08-22-2019 [place] ( and others) [id number]. [id number] 08-22-2019 () 1.2.840.11 4350.1.13.424.2. [id number] 08-22-2019 Unknown 08-22-2019 Unknown [id number] 1.2.840.011559.1.13.159.2. 7.3.151027.315 08-22-2019 [facility] [place] ( and others) [id number] 07-05-2019 Medicare [id number] 1.2.840.469472.1.13.239.2. 7.3.069154.315 07-05-2014 Unknown [id number] 1.2.840.991580.1.13.239.2. 7.3.267286.315 1966 Unknown [id number] 2.16.840.1.419510.3.579.2. 647 1966 Unknown [id number] 2.16.840.1.616620.3.579.2. 182 1966 Unknown [id number] 2.16.840.1.777887.3.579.2. 593 1966 Unknown [id number] 2.16.840.1.159889.3.579.2. 593 1966 Unknown [id number] 2.16.840.1.942945.3.579.2. 593 1966 Unknown [id number] 2.16.840.1.090971.3.579.2. 593 1966 Unknown [id number] 2.16.840.1.574962.3.579.2. 593 1966 Unknown [id number] 2.16.840.1.155466.3.579.2. 593 1966 Unknown [id number] 2.16.840.1.164057.3.579.2. 356 1966 Unknown [id number] 2.16.840.1.392227.3.579.2. 356 1966 Unknown [id number] 2.16.840.1.200644.3.579.2. 128 1966 Unknown [id number] 2.16.840.1.686428.3.579.2. 1285 1966 Unknown [id number] 2.16840.1.903786.3.579.2. 1285 1966 Unknown [id number] 2.16840.1.625881.3.579.2. 1285 1966 Unknown [id number] 2.840.1.183046.3.579.2. 1285 1966 Unknown [id number] 2.16840.1.508744.3.579.2. 1285 1966 Unknown [id number] 2.16840.1.640377.3.579.2. 1285 1966 Unknown [id number] 2.16840.1.603332.3.579.2. 128 1966 Unknown [id number] 2.16840.1.459520.3.579.2. 1259 1966 Unknown [id number] 2.16840.1.962383.3.579.2. 9 1966 Unknown [id number] 2.16840.1.910907.3.579.2. 1258 1966 Unknown [id number] 2.16.840.1.202633.3.579.2. 1259 1966 Unknown [id number] 2.16.840.1.727808.3.579.2. 1258 1966 Unknown [id number] 2.16840.1.500640.3.579.2. 1258 1966 Unknown [id number] 2.16840.1.740458.3.579.2. 1258 1966 Unknown [id number] 2.16840.1.095175.3.579.2. 1258 1966 Unknown [id number] 2.840.1.747836.3.579.2. 1258 1966 Unknown [id number] 2.840.1.389293.3.579.2. 1258 1966 Unknown [id number] 2.840.1.181172.3.579.2. 1258 1966 Unknown [id number] 2.840.1.328828.3.579.2. 1258 1966 Unknown [id number] 2.840.1.208425.3.579.2. 1258 1966 Unknown [id number] 2.840.1.839952.3.579.2. 1258 1966 Unknown [id number] .840.1.698034.3.579.2. 1258 1966 Unknown [id number] 2.840.1.737542.3.579.2. 1258 1966 Unknown [id number] 2.840.1.413515.3.579.2. 1258 1966 Unknown [id number] 2.840.1.381199.3.579.2. 1258 1966 Unknown [id number] 2.840.1.627304.3.579.2. 1258 1966 Unknown [id number] 2.16840.1.358326.3.579.2. 1258 1966 Unknown [id number] 2.16840.1.550330.3.579.2. 12581967 Unknown [id number] 2.16.840.1.167711.3.579.2. 1258 1966 Unknown [id number] 2.16.840.1.111732.3.579.2. 1258 1966 Unknown [id number] 2.16.840.1.930433.3.579.2. 1258 1966 Unknown [id number] 2.16.840.1.384875.3.579.2. 1258 1966 Unknown [id number] 2.16.840.1.850737.3.579.2. 1258 1966 Unknown [id number] 2.16.840.1.482556.3.579.2. 1258 1966 Unknown [id number] 2.16.840.1.971634.3.579.2. 1258 1966 Unknown [id number] 2.16.840.1.176646.3.579.2. 1258 1966 Unknown [id number] 2.16.840.1.523658.3.579.2. 9 07-05-1958 [place] ( and others) [id number] 1.2.840.004116.1.13.239.2. 7.3.491394.315 07-05-1959 [place] ( and others) [id number] 07-05-1958 Medicaid [id number] 07-05-1958 Private Health Insurance 101 [id number] Unknown [place]/ [id number] Unknown [id number] 2.16.840.1.960300.3.579.2. 531 Unknown [id number] 2.16.840.1.953295.3.579.2. 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) [employer] Start: 1965 Sex Assigned At Not on file [facility] [employer] Start: 07-14-2017 End: 09-03-2023 Tobacco smoking status TXIS Ex-smoker [facility] End: 04-13-1998 History of tobacco use Current smoker [facility] Start: 07-14-2017 End: 07-14-2024 Cigarettes smoked current (pack per day) - Reported 0.5 [facility] Comment on above: Quit in 1996; Start: 06-15-2018 End: 07-14-2024 Alcohol intake Current drinker of alcohol (finding) [facility] Start: 07-03-2017 History SDOH Alcohol Comment socially [facility] Start: 07-14-2017 Tobacco Comment 20 yrs ago [facility] Start: 1965 Sex Assigned At Female C [facility] Start: 09-28-2021 End: 03-31-2022 Exposure to SARS-CoV-2 (event) Not sure [facility] End: 04-13-1998 History of tobacco use Cigarette Smoker [facility] Start: 02-27-2022 End: 04-27-2024 Alcohol intake Ex-drinker (finding) [facility] Start: 02-27-2022 History SDOH Alcohol Comment none in a year as of 02/2022. [facility] Start: 12-17-2022 End: 07-14-2024 Tobacco use panel [facility] Start: 02-18-2023 National Score (1-10 0), lower number is lower risk 93 [facility] Start: 09-24-2021 Gender identity Identifies as female gender (finding) [facility] Start: 09-24-2021 Sexual orientation Heterosexual (og ashley) [facility] How hard is it for y ou to pay for the very basics like food, housing, medical care, and heating Not very hard [facility] Work Phone: (I/We) worried pavithra er (my/our) food would run out before (I/we) got money to buy more. Never true [facility] Work Phone: In the past 12 month s, was there a time when you were not able to pay the mortgage or rent on time? No [facility] Work Phone: Do you belong to any clubs or organizations such as jain groups, unions, fraternal or athletic groups, or school groups? Yes [facility] Are you now , , , , never or living with a partner? [facility] How often to you hav e a drink containing alcohol? Never [facility] Do you feel stress - tense, restless, nervous, or anxious, or unable to sleep at night because your mind is troubled all the time - these days [OSQ] Not at all [facility] Start: 08-13-2022 Tobacco Comment 15 yrs / PPD 25 yrs since quit [facility] Start: 02-07-2015 Sex Female (finding) [facility] Medical Equipment Procedure Code Equipment Code Equipment Origin al Text Equipment Identifier Dates Use as directed with 1 subcutaneous injection daily. Start: 01-10-2018 End: 01-12-2023 Comment on above: Use as directed with 1 subcutaneous injection daily. Stent Zimmon 7fr 2 Pigtail Curve Purple Polyethylene 7cm 170cm Biliary - [id number] Start: 10-08-2021 Tube Natalia Secur-L ok 18fr Silicone Gastrostomy Medication Port Radiopaque - [id number] Start: 03-02-2022 Mesh Prolene Squ are Flat [id number] Surgical Knit Nonabsorbable Nonreactive - [id number] Start: 12-30-2022 Pacemaker-02/03/2024 [id number] Start: 02-03-2024 Goals Date Patient Goal Desired Activity /State Functional Status Date Assessment Result Facility 09-18-2022 Functional status Patient at Baseline [facility] Work Phone: Mental Status Date Assessment Result Facility 09-18-2022 Cognitive function Cognitive Sta tus Patient at Baseline [facility] Work Phone: Clinical Notes 08-23-2017 to 07-17-2024 Elvira Mario, PT - 07/17/2024 9:00 AM Silverio Dang, PA - 07/14/2024 9:30 AM Huma Martin, PT - 07/12/2024 8:30 AM Huma Martin, PT - 06/30/2024 7:00 AM EST Note Date & Type Note Facility 07-17-2024 History of Present illness Narrative Physical Therapy Treatment Visit Patient Name: Yari Daily Today's Date: 07/17/2024 Encounter Diagnoses Name Primary? S/P arthroscopy of left shoulder Yes Internal derangement of left shoulder Visit number: 13 Timed Code Treatment: 44 minutes Total Treatment Time: 54 minutes Time In: 9:00 AM Time Out: 9:59 AM History: Pt underwent surgery for left RCR on 05/25/24. Pt states compliant with use of sling use. Still taking pain medication for left shoulder. States still having to ice at times due to pain. Having a hard time sleeping. Having pain in left shoulder and down arm into left lateral wrist. Precautions: PACEMAKER Subjective: Pt was seen by ortho last week. No longer using sling. States shoulder was really sore and painful following ortho visit; has been having a hard time sleeping since then. Pain: 5/10 increases with usage; took pain pill right before PT Objective: PT Evaluation (06/13/2024) LEFT SHOULDER AROM: N/A PROM: 80 degrees flexion, 90 degrees abduction, 14 degrees ER, 59 degrees IR; full PROM left elbow and wrist Strength: N/A Palpation: Min/mod tenderness left shoulder region Special Test: N/A Treatment: Manual Therapy: (18 minutes) Delivered manual ther to left shoulder in all planes with gentle oscillations to improve mobility and decrease pain Therapeutic Exercise: (26 minutes supervised ) Guided pt through ther and flex ex A-AROM phase II per grid to improve L UE to improve functional mobility and strength Therapeutic Activity: Exercises to improve dynamic activities, functional tasks, functional mobility to return to prior activity level as needed. Neuromuscular re-education: Balance Training, Muscle Facilitation, Dynamic Stability, Core Stabilization, and Blood Flow Restriction Training (BFRT) as needed. Modalities: PACEMAKER (prn) CP x 10 mins at end of treatment for pain pt sitting to L shoulder to decrease muscle soreness Assessment: Visit #13 post left RC repair performed on 05/25/24. Pt continues with significant pain pain with AAROM. Pt chandu to achieve 143 degrees passive abduction this date, 65 degrees ER. 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 Outcome Measure: Upper Extremity Functional Index (UEFI): 0/80; 12/80 on 07/12/23 Rehab Diagnosis: left shoulder pain and weakness, limited ROM Short Term Goal: To be met in 2 weeks Goal 1: Pt to be instructed in home exercise program. 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 (Progressing) Goal 2: Pt to achieve 140 degrees of left shoulder flexion to assist with overhead reaching. (Progressing) Goal 3: Pt to achieve 120 degrees of left shoulder abduction to assist with grooming hair. (Progressing) Goal 4: Pt to achieve 4+/5 strength left shoulder in all planes to assist with functional tasks and lifting. (Progressing) Goal 5: Pt to score no less than 40/80 on UEFI indicating improved QOL. Goal 6: Pt to report pain no greater than 2/10 in left shoulder with ADL's and work related activities. (Progressing) Pt will benefit from skilled PT for 3x/week from 06/13/2024 to 08/22/2024 to address the above impairments. I hereby deem this POC medically necessary. Please sign below. Date: documented in this encounter [facility] 07-14-2024 History of Present illness Narrative Images from the original note were not included. HISTORY OF PRESENT ILLNESS: POST OP PT Yari Daily is an 58 y.o. @ female. No surgery found s/p surgery onNo surgery found EST PT S/P (L) SHOULDER SCOPE W/ RCR 05/25/24 (7WKS 1DAY)- PT C/O PAIN- WOULD LIKE A REFILL OF PERCOCET- WEARING ULTRA SLING- CONTINUES PT MANS LUBA; INCREASE ROM-C/O ACHINESS- SHOOTING PAIN DOWN TO WRIST PT NOMMay VERDUZCO REVIEW OF SYSTEMS: General: Denies fever, fatigue or weight loss Lungs: Denies SOB Cardio: Denies chest pain GI: Denies indigestion or abdominal pain Neuro: Denies numbness or tingling, denies new onset paralysis Musculoskeletal: ( see note) PHYSICAL EXAM: Left Shoulder Exam Tenderness The patient is experiencing no tenderness (compartments soft). Range of Motion Active abduction: 110 Passive abduction: 150 Extension: 60 External rotation: 40 Forward flexion: 110 (PROM 170) Internal rotation 0 degrees: L2 Muscle Strength Left shoulder normal muscle strength: Fires deltoid and rotator cuff. Other Erythema: absent Scars: absent (portals well healed) Sensation: normal Pulse: present Comments: The operative upper extremity was noted to be neurovascularly unchanged. Sensation to light touch was intact to all dermatomes to operative upper extremity. Radial and ulnar pulses were present and equal bilaterally. Patient was able to motor elbow wrist and fingers in all anatomic planes with 5 out of 5 strength on the operative upper extremity. Compartments were soft to operative upper extremity. There was no evidence of infection or ascending lymphangitis to operative extremity. Procedures No orders of the defined types were placed in this encounter. ASSESSMENT: ICD-10-CM 1. S/P arthroscopy of left shoulder Z98.890 S/p rotator cuff repair and SAD. Assessment & Plan 1. Post-operative status following left rotator cuff repair. She is demonstrating satisfactory progress with no indications of infection. However, she experiences stiffness at the end range of both passive and active motions. A prescription for pain medication has been provided to manage discomfort during therapy sessions and to aid in sleep. She has been advised to discontinue the use of the sling. New exercises focusing on active range of motion have been introduced, with explicit instructions to avoid lifting, weight-bearing activities, and resistance training. Her condition will be reassessed in 5 to 6 weeks to evaluate her progress and potentially initiate strengthening exercises. Follow-up The patient will follow up in 5 to 6 weeks. PROCEDURE The patient is 6 weeks status post left rotator cuff repair. Questions answered in laymen terms at the bedside. The diagnosis, home exercise plan and any ongoing restrictions/ recommendations reviewed. If unable to be reached in office, I recommend evaluation at nearest Emergency Room if any symptoms worsened or new symptoms develop for requiring urgent evaluation. documented in this encounter [facility] 07-12-2024 History of Present illness Narrative Images from the original note were not included. Physical Therapy Treatment Visit Patient Name: Yari Daily Today's Date: 07/12/2024 Encounter Diagnoses Name Primary? S/P arthroscopy of left shoulder Yes Internal derangement of left shoulder Visit number: 12 of 12 visits Timed Code Treatment: 30 minutes Total Treatment Time: 40 minutes Time In: 8:30 AM Time Out: 9:12 AM History: Pt underwent surgery for left RCR on 05/25/24. Pt states compliant with use of sling use. Still taking pain medication for left shoulder. States still having to ice at times due to pain. Having a hard time sleeping. Having pain in left shoulder and down arm into left lateral wrist. Precautions: PACEMAKER Subjective: Pt states she has been sick with a cold last few days. Shoulder was doing well. Now cold is going away but now shoulder is hurting again. Pain: 6/10 increases with usage; took pain pill this morning Objective: PT Evaluation (06/13/2024) LEFT SHOULDER AROM: N/A PROM: 80 degrees flexion, 90 degrees abduction, 14 degrees ER, 59 degrees IR; full PROM left elbow and wrist Strength: N/A Palpation: Min/mod tenderness left shoulder region Special Test: N/A Treatment: Manual Therapy: (12 minutes) Delivered manual ther to left shoulder in all planes with gentle oscillations to improve mobility and decrease pain Therapeutic Exercise: (18 minutes supervised ) Guided pt through ther and flex ex A-AROM phase II per grid to improve L UE to improve functional mobility and strength Therapeutic Activity: Exercises to improve dynamic activities, functional tasks, functional mobility to return to prior activity level as needed. Neuromuscular re-education: Balance Training, Muscle Facilitation, Dynamic Stability, Core Stabilization, and Blood Flow Restriction Training (BFRT) as needed. Modalities: PACEMAKER (prn) CP at end of treatment for pain pt sitting to L shoulder to decrease muscle soreness Assessment: Visit #12 post left RC repair performed on 05/25/24. AROM of left shoulder is currently: 60 degrees flexion, 39 degrees abduction, 40 degrees ER. PROM left shoulder: 132 degrees flexion, 130 degrees abduction, 50 degrees ER. No strength testing at this time. UEFI score: 12/80. Will continue to progress as pt tolerates. Follows up with Jack Dang 07-14-23. Outcome Measure: Upper Extremity Functional Index (UEFI): 0/80; 12/80 on 07/12/23 Rehab Diagnosis: left shoulder pain and weakness, limited ROM Short Term Goal: To be met in 2 weeks Goal 1: Pt to be instructed in home exercise program. (Progressing) Correction Goals: To be met in 10 weeks Goal 1: Pt to report independence and compliance with home program. (Progressing) Goal 2: Pt to achieve 140 degrees of left shoulder flexion to assist with overhead reaching. (Progressing) Goal 3: Pt to achieve 120 degrees of left shoulder abduction to assist with grooming hair. (Progressing) Goal 4: Pt to achieve 4+/5 strength left shoulder in all planes to assist with functional tasks and lifting. (Progressing) Goal 5: Pt to score no less than 40/80 on UEFI indicating improved QOL. Goal 6: Pt to report pain no greater than 2/10 in left shoulder with ADL's and work related activities. (Progressing) Pt will benefit from skilled PT for 3x/week from 06/13/2024 to 08/22/2024 to address the above impairments. I hereby deem this POC medically necessary. Please sign below. Date: documented in this encounter [facility] 06-30-2024 History of Present illness Narrative Images from the original note were not included. Physical Therapy Treatment Visit Patient Name: Yari Daily Today's Date: 06/30/2024 Encounter Diagnoses Name Primary? S/P arthroscopy of left shoulder Yes Internal derangement of left shoulder Visit number: 9 Timed Code Treatment: 40 minutes Total Treatment Time: 50 minutes Time In: 7:00 AM Time Out: 7:51 AM History: Pt underwent surgery for left RCR on 05/25/24. Pt states compliant with use of sling use. Still taking pain medication for left shoulder. States still having to ice at times due to pain. Having a hard time sleeping. Having pain in left shoulder and down arm into left lateral wrist. Precautions: PACEMAKER PROM only at this stage Subjective: Pt states she thought shoulder was getting a little better but realized on drive over she was still having a lot of pain. Pain: 10 Objective: PT Evaluation (06/13/2024) LEFT SHOULDER AROM: N/A PROM: 80 degrees flexion, 90 degrees abduction, 14 degrees ER, 59 degrees IR; full PROM left elbow and wrist Strength: N/A Palpation: Min/mod tenderness left shoulder region Special Test: N/A Treatment: Manual Therapy: (29 minutes) Delivered manual ther to left shoulder , elbow, wrist and UE PROM in all planes with gentle oscillations to improve mobility and decrease pain Therapeutic Exercise: (11 minutes) Guided pt through ther and flex ex- phase I per grid to improve L UE, shoulder, wrist per grid to improve functional mobility and strength Therapeutic Activity: Exercises to improve dynamic activities, functional tasks, functional mobility to return to prior activity level as needed. Neuromuscular re-education: Balance Training, Muscle Facilitation, Dynamic Stability, Core Stabilization, and Blood Flow Restriction Training (BFRT) as needed. Modalities: PACEMAKER (10 minutes) CP at end of treatment for pain pt supine to L shoulder to decrease muscle soreness Assessment: Visit #9 post left RC repair performed on 05/25/24. Pt able to achieve 130 degrees of left shoulder passively this date. Significant pain when trying to lower left shoulder from greater than 90 degrees. Verbal cues to relax during PROM. Will continue. Outcome Measure: Upper Extremity Functional Index (UEFI): 0/80 Rehab Diagnosis: left shoulder pain and weakness, limited ROM Short Term Goal: To be met in 2 weeks Goal 1: Pt to be instructed in home exercise program. Correction Goals: To be met in 10 weeks Goal 1: Pt to report independence and compliance with home program. Goal 2: Pt to achieve 140 degrees of left shoulder flexion to assist with overhead reaching. Goal 3: Pt to achieve 120 degrees of left shoulder abduction to assist with grooming hair. Goal 4: Pt to achieve 4+/5 strength left shoulder in all planes to assist with functional tasks and lifting. Goal 5: Pt to score no less than 40/80 on UEFI indicating improved QOL. Goal 6: Pt to report pain no greater than 2/10 in left shoulder with ADL's and work related activities. Pt will benefit from skilled PT for 3x/week from 06/13/2024 to 08/22/2024 to address the above impairments. I hereby deem this POC medically necessary. Please sign below. Date: documented in this encounter [facility] 06-26-2024 History of Present illness Narrative Images from the original note were not included. Physical Therapy Treatment Visit Patient Name: Yari Daily Today's Date: 06/26/2024 Encounter Diagnoses Name Primary? S/P arthroscopy of left shoulder Yes Internal derangement of left shoulder Generalized abdominal pain Visit number: 7 Timed Code Treatment: 30 minutes Total Treatment Time: 40 minutes Time In: 5:50 PM Time Out: 6:36 PM History: Pt underwent surgery for left RCR on 05/25/24. Pt states compliant with use of sling use. Still taking pain medication for left shoulder. States still having to ice at times due to pain. Having a hard time sleeping. Having pain in left shoulder and down arm into left lateral wrist. Precautions: PACEMAKER PROM only at this stage Subjective: Pt states she was out of town over the weekend. Still having a hard time sleeping due to left shoulder pain. Pain: 12/12 Objective: PT Evaluation (06/13/2024) LEFT SHOULDER AROM: N/A PROM: 80 degrees flexion, 90 degrees abduction, 14 degrees ER, 59 degrees IR; full PROM left elbow and wrist Strength: N/A Palpation: Min/mod tenderness left shoulder region Special Test: N/A Treatment: Manual Therapy: (14 minutes) Delivered manual ther to left shoulder , elbow, wrist and UE PROM in all planes with gentle oscillations to improve mobility and decrease pain Therapeutic Exercise: (16 minutes) Guided pt through ther and flex ex- phase I per grid to improve L UE, shoulder, wrist per grid to improve functional mobility and strength Therapeutic Activity: Exercises to improve dynamic activities, functional tasks, functional mobility to return to prior activity level as needed. Neuromuscular re-education: Balance Training, Muscle Facilitation, Dynamic Stability, Core Stabilization, and Blood Flow Restriction Training (BFRT) as needed. Modalities: PACEMAKER (10 minutes) CP at end of treatment for pain pt supine to L shoulder to decrease muscle soreness Assessment: Visit #7 post left RC repair performed on 05/25/24. PROM this date: 132 degrees flexion, 115 degrees abduction, 47 degrees ER. Pt with occasional cues to relax during PROM this date. Discussed improvements made with good pt understanding. Will continue to progress as pt tolerates. Outcome Measure: Upper Extremity Functional Index (UEFI): 0/80 Rehab Diagnosis: left shoulder pain and weakness, limited ROM Short Term Goal: To be met in 2 weeks Goal 1: Pt to be instructed in home exercise program. 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 Goal 2: Pt to achieve 140 degrees of left shoulder flexion to assist with overhead reaching. Goal 3: Pt to achieve 120 degrees of left shoulder abduction to assist with grooming hair. Goal 4: Pt to achieve 4+/5 strength left shoulder in all planes to assist with functional tasks and lifting. Goal 5: Pt to score no less than 40/80 on UEFI indicating improved QOL. Goal 6: Pt to report pain no greater than 2/10 in left shoulder with ADL's and work related activities. Pt will benefit from skilled PT for 3x/week from 06/13/2024 to 08/22/2024 to address the above impairments. I hereby deem this POC medically necessary. Please sign below. Date: documented in this encounter [facility] 06-26-2024 Telephone encounter Note PDMP reviewed. Rx sent to pharmacy. [facility] 06-26-2024 Miscellaneous Notes PDMP reviewed. Rx sent to pharmacy. Pt called and stated she had follow up with Jack on Saturday 06/23 that got cancelled due to our office staff being sick. She asked if she could get a refill of percocet called in to [facility] [place]. PO (L) SHOULDER SCOPE W/ RCR 05/25/24 . Her PO visit is not until 07/14/23 with Jack now. Allergies: in patient chart. Her call back [phone] documented in this encounter [facility] 06-26-2024 Telephone encounter Note Pt called and stated she had follow up with Jack on Saturday 06/23 that got cancelled due to our office staff being sick. She asked if she could get a refill of percocet called in to [facility] in [place]. PO (L) SHOULDER SCOPE W/ RCR 05/25/24 . Her PO visit is not until 07/14/23 with Jack now. Allergies: in patient chart. Her call back [phone] [facility] 06-09-2024 History of Present illness Narrative Images from the original note were not included. HISTORY OF PRESENT ILLNESS: POST OP PT Yari Daily is an 58 y.o. @ female. 1ST PO (L) SHOULDER SCOPE W/ RCR 05/25/24 (2 WKS 1 DAY) @[facility]. SORENESS/PAIN DIFFUSE IN SHOULDER. WEARING ULTRA SLING. TAKING PERCOCET. USING ICE. DENIES N/T. ADMITS SWELLING. WAKES PT AT HS. DOING ELBOW MOVEMENTS. DENIES DRAINAGE. STITCHES INTACT, REMOVED TODAY. INCISIONS HEALING WELL. OFF WORK. REVIEW OF SYSTEMS: General: Denies fever, fatigue or weight loss Lungs: Denies SOB Cardio: Denies chest pain GI: Denies indigestion or abdominal pain Neuro: Denies numbness or tingling, denies new onset paralysis Musculoskeletal: ( see note) PHYSICAL EXAM: Left Shoulder Exam Left shoulder exam is normal. Tenderness The patient is experiencing no tenderness (compartments soft). Range of Motion Left shoulder passive abduction: gentle pendulums easily. Muscle Strength Left shoulder normal muscle strength: gentle pendulums easily, fires rotator cuff and deltoid. Other Erythema: absent Scars: present (Portals well healing, sutures removed, no erythema, drainge or discharge, no dehisence) Sensation: normal Pulse: present Comments: The operative upper extremity was noted to be neurovascularly unchanged. Sensation to light touch was intact to all dermatomes to operative upper extremity. Radial and ulnar pulses were present and equal bilaterally. Patient was able to motor elbow wrist and fingers in all anatomic planes with 5 out of 5 strength on the operative upper extremity. Compartments were soft to operative upper extremity. There was no evidence of infection or ascending lymphangitis to operative extremity. Procedures No orders of the defined types were placed in this encounter. ASSESSMENT: ICD-10-CM 1. S/P arthroscopy of left shoulder Z98.890 S/p rotator cuff repair and SAD. Assessment & Plan 1. Post-operative status following left rotator cuff repair. She is currently 2 weeks post-procedure. She expressed satisfaction with her recovery progress. A comprehensive discussion was held regarding the importance of adhering to restrictions at this stage, which include passive range of motion exercises only, daily use of a sling, and avoidance of active range of motion activities. The initiation of outpatient therapy was also discussed. The use of pain medication to facilitate sleep and aid in therapy was addressed, emphasizing the need to use the least effective dose to minimize potential side effects. Pain management strategies were reviewed and she was advised to continue with her current regimen. PROCEDURE The patient is 2 weeks status post left rotator cuff repair. Questions answered in laymen terms at the bedside. The diagnosis, home exercise plan and any ongoing restrictions/ recommendations reviewed. If unable to be reached in office, I recommend evaluation at nearest Emergency Room if any symptoms worsened or new symptoms develop for requiring urgent evaluation. documented in this encounter [facility] 06-09-2024 Instructions MELVIN Faye - 06/09/2024 9:30 AM EST Discussed patient being 2 wks s/p Rotator cuff surgery: surgery discussed at bedside. Continue in sling until follow up to protect repair. ( 6 wks post op) May remove sling to shower and change clothing. Also remove sling 2- 3 times a day to continue home exercises for hand, wrist and elbow range of motion. No weight in operative arm. No lifting anything heavier than coffee cup. Referral for Therapy given/sent electronically, please call Therapy facility to schedule as soon as possible documented in this encounter [facility] 06-07-2024 Telephone encounter Note PDMP reviewed. Refill sent to pharmacy. [facility] 06-07-2024 Miscellaneous Notes PDMP reviewed. Refill sent to pharmacy. Pt called and stated had Rt shoulder scope 05/25/24 and asked if she could get a refill of Percocet (called in last on 05/29/24) she took last pill today. Her follow is not until Saturday 06/09. [facility] . Her call back [phone] documented in this encounter [facility] 06-07-2024 Telephone encounter Note Pt called and stated had Rt shoulder scope 05/25/24 and asked if she could get a refill of Percocet (called in last on 05/29/24) she took last pill today. Her follow is not until Saturday 06/09. [facility] . Her call back [phone] [facility] 05-29-2024 Telephone encounter Note I will send in refill for patient. We cannot do any stronger than the percocet 5-325 at this time. Pdmp reviewed. [facility] 05-29-2024 Miscellaneous Notes I will send in refill for patient. We cannot do any stronger than the percocet 5-325 at this time. Pdmp reviewed. Yari Jhamanda,I had surgery on 1121. And I am going to run out of pain medicine. And what he gave me is not cutting the pain. So I was wondering if I can get a refill since a holiday week or something different. Please give me a call [phone]. Thank you documented in this encounter [facility] 05-29-2024 Telephone encounter Note Yari Jhamanda,I had surgery on 112. And I am going to run out of pain medicine. And what he gave me is not cutting the pain. So I was wondering if I can get a refill since a holiday week or something different. Please give me a call [phone]. Thank you [facility] 05-24-2024 Miscellaneous Notes Post op pain rx. PDMP reviewed documented in this encounter [facility] 05-24-2024 Telephone encounter Note Post op pain rx. PDMP reviewed [facility] 05-23-2024 Note MD Cardiology [facility] Reason for visit: SVT, AVNRT s/p ablation, SND s/p PPM 05/23/2024 She feels like over the past 3 months or so she has had some weight gain and increased leg swelling. In November 2023 she was at 135#, today she is at 160#. She reports her eating habits have not changed. Denies high salt intake. She typically cooks her own meals. High protein diet, low carb. She doesn't think she is drinking more than normal, probably less than 2L a day. She reports she use to take lasix, spironolactone, and maybe something else. Her PCP recently adjusted her thyroid medication. She is pending shoulder surgery in 2 days. Her palpations have been much better. Short lived, does not happen as often. Denies c/o CP, dyspnea, orthopnea, PND, dizziness/LH, palpitations, syncope. 02/16/2024 Since last seen she underwent an EP study with an AVNRT ablation. She developed sinus node dysfunction and underwent implantation of a permanent pacemaker. She is feeling better from a cardiac standpoint. She has been having palpitations maybe once a day. Lasts seconds and resolves on its own. She c/o issues with her left rotator cuff and pain. She was due to have surgery after her ablation procedure but then she required a pacemaker which post-poned her shoulder surgery. 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 She is hoping to have shoulder surgery TAMIKO. Denies CP, dyspnea, orthopnea, PND, LE edema, syncope. 10/12/[address] Neal 2 weeks ago. He started flecainide along with metoprolol for SVT. She denies any change in sx's. She will have sx's 2-3 times a day, lasts 5-10mins at most. She gets chest discomfort and sweating when she has these. Her HR has been dropping in the 40-50s. She feels dizzy/LH during these times. In aug, she broke her right foot. She is non-weight bearing, hoping to have this lifted soon. 09/28/23 30-day event monitor did reveal presence of nonsustained atrial tachycardia however no A-fib or VT was seen. There were occasional PACs and PVCs noted. 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 Discussed since unable tolerate AV nancy blocking agents we need to consider EP study and will have her see dr. Neal as previously mentioned. 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 neal HPI: Yari Daily is a 58 y.o. 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 She was recently admitted for NSTEMI with cardiac cath that revealed angiographically normal coronary arteries normal LVEF. There is an echocardiogram 09/2022 that is reflected in documentation but we are pending receiving the results. She was at cardiac rehab where there was concern for SVT event/ A-fib. 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 She was on Ranexa for chest pain but it was determined that her symptoms were related to SVT and Ranexa was discontinued. Since then she was seen by Linda YANEZ and Lopressor was increased to 25mg Q and she has felt better. Event monitor placed from 01/06/2023 to 02/05/2023 revealed presence of SVT noted on 01/14/2023 at 11:26 AM consistent with what appeared to be narrow complex tachycardia with short RP interval likely AVNRT. no A-fib or VT was seen and occasional PVCs was noted. Medications: Aspirin 81 mg, Synthroid 100 mcg, metoprolol succinate 25 mg, pravastatin 20 mg ECG 10/06/2022 normal sinus rhythm ECG 01/07/2020 normal sinus rhythm with nonspecific T wave abnormality Echocardiogram 02/12/2023 Labs 01/03/2023 BMP unremarkable BUN 11, creatinine 1.69, K4.4, GFR 102 Refer to media tab for ECG Strips from the medical center rehab PMH: Past Medical History: Diagnosis Date Abnormal ECG AVNRT (AV nancy re-entry tachycardia) (CMS/HCC) Myocardial infarction (CMS/HCC) Vasospastic angina (CMS/HCC) PSH: Past Surgical History: Procedure Laterality Date BARIATRIC SURGERY CARDIAC CATHETERIZATION HERNIA MESH REMOVAL SH: Social Determinants of Health Tobacco Use: Medium Risk (05/01/2024) Re (more content not included)... [facility] 05-23-2024 Note Pt is here for a thr ee month follow up. The only concern is weight gain. Review of Systems Musculoskeletal: Positive for joint pain (left shoulder). All other systems reviewed and are negative. [facility] 05-01-2024 History of Present illness Narrative Images from the original note were not included. HISTORY OF PRESENT ILLNESS: EST PT Yari Daily is an 58 y.o. @ female. (EST PT) RECHECK (L) SHOULDER- POSSIBLY DISCUSS SURGERY- (NEEDS GENERAL)- PT IS SCHEDULED FOR SURGERY 05/25/24 [facility] - CLEARANCE UNDER MEDIA 02/23/24 PT WAS GIVEN CORTISONE INJ 03/15/24 PER PAIN MANAGEMENT FM; DENIES RELIEF S/P PACEMAKER 02/07/24 XRAYS, 08/06/23 IN CHANGE / EPIC MRI LT SHOULDER 09/13/23 CHANGE (L) UE EMG 06/23/23 @ [facility] S/P CORTISONE INJ 03/14/21 PAIN MANAGEMENT FM- CORTISONE INJ 03/15/24; DENIES RELIEF CONTINUES TO HAVE CONSTANT PAIN- LIMITED ROM- DIFFICULTY RAISING ABOVE SHOULDER LEVEL- +WEAKNESS- +WAKES HS- NO PAIN MEDS ALLERGIES: Allergies Allergen Reactions Cephalexin Hives and Other Skin Peeling ; has received multiple courses of Piperacillin / Tazobactam without noted reaction - inpatient Codeine Anaphylaxis and Shortness of breath Tolerated Hydromorphone 03/2022 Tramadol Other and Hallucinations Abnormal Behavior / Mental Status Change / Nightmares Clarithromycin Iodinated Contrast Media Sulfamethoxazole Rash Trimethoprim Rash HOME MEDICATIONS: Current Outpatient Medications Medication Instructions Calcium-Vitamin D-Vitamin K 500-100-40 MG-UNT-MCG chewable tablet 1 tablet levothyroxine (SYNTHROID, LEVOXYL) 100 mcg, Oral, Every morning Multiple Vitamin (Multi Vitamin) tablet Every 24 hours pravastatin (Pravachol) 20 MG tablet Every 24 hours PHYSICAL EXAM: Shoulder Musculoskeletal Exam Inspection Left Left shoulder inspection is normal. Ecchymosis: none Peripheral edema: none Atrophy: none Masses: none Palpation Left Crepitus: mild Increased warmth: none Tenderness: present Anterior shoulder: mild Bicipital groove: moderate Range of Motion Left Left shoulder range of motion is normal. Active ROM: pain. Passive ROM: pain. Active forward elevation: 90. Passive forward elevation: 160. Shoulder active abduction: 90. Passive abduction: 160. Active external rotation at side: 40. Passive external rotation at side: 50. Internal rotation: L1. Strength Left External rotation: 5/5. Internal rotation: 5/5. Abduction: 3/5. Biceps: 5/5. Triceps: 5/5. Neurovascular Left Radial pulse: normal and 2+ Capillary refill: <3 sec Axillary nerve sensory distribution: normal Scapula Right Right shoulder scapula is normal. Left Left shoulder scapula is normal. Position: normal Winging: none Special Tests Left Rotator Cuff Signs Neer's test: positive Kirkland test: positive Painful arc test: positive Biceps/annette Signs Speed's test: positive GENERAL EXAM GENERAL EXAMINATION: ALERT,WELL-APPEARING, IN NO ACUTE DISTRESS. HEAD: NORMOCEPHALIC, ATRAUMATIC. EYES: EXTRAOCULAR MOVEMENT FULL AND SMOOTH EXTRAOCULAR MOVEMENT INTACT, PUPILS EQUAL, ROUND AND REACTIVE TO LIGHT. NECK/THYROID: NO JUGULAR VENOUS DISTENTION,NECK SUPPLE, TRACHEA MIDLINE. SKIN: NO VISIBLE RASHES TO EXPOSED SKIN. LUNGS: NO EVIDENCE OF RESPIRATORY DISTRESS, NON LABORED. ABDOMEN:SOFT, NON TENDER, NON DISTENDED, BOWEL SOUNDS PRESENT, NORMAL EXTREMITIES:NO CLUBBING, CYANOSIS, OR EDEMA PERIPHERAL PULSES: 2+THROUGHOUT, 2+ DORSALIS PEDIS, 2+ POSTERIOR TIBIAL, 2+ POPLITEAL, 2+ RADIAL, 2+ ULNAR NEUROLOGIC: ALERT AND ORIENTED. PSYCH: GOOD EYE CONTACT, SPEECH CLEAR, MOOD/AFFECT IS APPROPRIATE. Vitals: Body mass index is 26.57 kg/m . Tobacco Use: Medium Risk (05/01/2024) Patient History Smoking Tobacco Use: Former Smokeless Tobacco Use: Unknown Passive Exposure: Not on file Alcohol Use: Not At Risk (12/22/2022) Received from [employer], [employer] Frequency of Alcohol Consumption: Never Average Number of Drinks: Patient does not drink Frequency of Binge Drinking: Never IMAGING: Procedures Orders Placed This Encounter Procedures Basic metabolic panel Standing Status: Future Number of Occurrences: 1 Standing Expiration Date: 04/18/2025 Order Specific Question: Print requisition? Answer: No CBC auto differential Standing Status: Future Number of Occurrences: 1 Standing Expiration Date: 04/18/2025 Order Specific Question: Print requisition? Answer: No ASSESSMENT: ICD-10-CM 1. Preop examination Z01.818 Basic metabolic panel CBC auto differential Basic metabolic panel CBC auto differential 2. Calcific tendonitis of left shoulder M75.32 3. Internal derangement of left shoulder M24.812 PLAN: We have answered all the patients questions and explained the patients condition, decision making and plan including the risks and benefits associated with said plan in layman''s terms in a language the patient could understand easily. If patient''s symptoms significantly worsen and they cannot get a hold of us or their family physician, we have recommended that the patient proceed to the nearest emergency department (room). Dr. Ac obtained history and examined the patient, I am acting as scribe for Dr. Ac/janna, PLAN: We have answered all the patients questions and explained the patients condition, decision making and plan including the risks and benefits associated with said plan in layman''s terms in a language the patient could understand easily. If patient''s symptoms significantly worsen and they cannot get a hold of us or their family physician, we have recommended that the patient proceed to the nearest emergency department (room). Dr. Stepanic obtained history and examined the patient, I am acting as scribe for Dr. Ac/janna, PLAN: We have reviewed prior (L) shoulder xrays / MRI results. After examination of her left shoulder today we have discussed both surgical and nonsurgical intervention, with the risks and benefits of both. Patient is requesting a (L) shoulder scope as the pain is affecting her ADL- increased pain with motion. She is understanding if a repair is made she could be in a sling for at least 6 weeks and not lifting anything heavier than a coffee cup for at least 12 weeks. We have discussed her HEP and restrictions and will see her back on the day of sx. Surgery - Diagnostic and operative (L) shoulder scope w/SAD and RCR. We have discussed both surgical and nonsurgical treatment options with the patient at length and the risks and benefits associated with both. The patient is requesting surgical intervention because they have not responded to outpatient treatment options including but not limited to rest ice, and home exercise program. Pain and decreased range of motion are affecting the patient''s ability to sleep and activities of daily living and we have recommended surgical intervention. (L) SHOULDER SCOPE 05/25 @[facility] SX INSTRUCTIONS GIVEN TODAY 05/01 @11:15AM - [facility] ; OBTAINED ARTHREX NOTIFIED Ultrasling refit today in office ; already had at home PA APPROVED ([id number]) Leonard Ac D.O. documented in this encounter [facility] 04-27-2024 History of Present illness Narrative Images from the original note were not included. [address] [place] [address] Patient: Yari Daily Date of : 1965 Encounter Date: 04/27/2024 History of Present Illness: The patient is a 58 y.o. female, an established patient, and is here for Chief Complaint Patient presents with Follow-up . HPI Patient is here for recheck of her thyroid function tests that were abnormal in December when checked by her temperature regulator pyrometer. TSH was 14.8. Patient was taking 125 mcg of Synthroid after her hospital stay over the summer but then went back to her old dose of 112 mcg and has been out for 2 days. Since last appointment with me patient has had an KS with no stents placed and a pacemaker placement after a failed ablation. She also broke her foot in August. Patient is finally cleared to have left rotator cuff surgery on May 25 but she will go on a cruise 1st from May 15 to and would like some scopolamine patches in case she becomes nauseated. Patient also has an intermittent fungal rash to her skin folds that is not bothering her at this time but was getting nystatin cream from previous nurse practitioner that retired when she had flare-ups. Problem List Items Addressed This Visit Endocrine Hypothyroid - Primary Relevant Medications levothyroxine (SYNTHROID, LEVOTHROID) 112 MCG tablet Other Relevant Orders TSH T4, free Other Visit Diagnoses Surgical wound infection Relevant Orders Wound culture Candidiasis of skin Overweight (BMI 25.0-29.9) Motion sickness, initial encounter Past Medical, Family, and Social History Update: The following portions of the patient's history were reviewed and updated as appropriate: allergies, current medications, past family history, past medical history, past social history, past surgical history and problem list. Past Medical History: Diagnosis Date Asthma Chronic eczema of hand [place] [place] Disease of thyroid gland Edema Hyperlipidemia Hypertriglyceridemia Joint pain Left shoulder pain tore rotator cuff Obesity Obesity Obstructive sleep apnea Osteoporosis Jennifer's [place] [place] Tinea pedis Vitamin D deficiency Past Surgical History: Procedure Laterality Date CARDIAC ELECTROPHYSIOLOGY MAPPING AND ABLATION 12/08/2023 successful CARDIAC PACEMAKER PLACEMENT 02/07/2024 HERNIA REPAIR HYSTERECTOMY INSERT / REPLACE / REMOVE PACEMAKER 02/07/2024 REDUCTION MAMMAPLASTY 2007 STOMACH SURGERY 03/02/2022 partial gastrectomy Current Outpatient Medications Medication Sig Dispense Refill aspirin 81 mg chewable tablet Chew 1 tablet (81 mg total) and swallow in the morning. famotidine (PEPCID) 20 mg tablet Take 1 tablet (20 mg total) by mouth in the morning. mjmyfhtj-pci-wyvn-folic-vit K1 8 mg-400 mcg- 10 mcg tablet,chewable Chew 1 tablet and swallow in the morning. pravastatin (PRAVACHOL) 20 mg tablet Take 1 tablet (20 mg total) by mouth nightly. HYDROmorphone (DILAUDID) 2 mg tablet Take 1 tablet (2 mg total) by mouth every 8 (eight) hours as needed for pain. Max Daily Amount: 6 mg (Patient not taking: Reported on 04/27/2024) 20 tablet 0 levothyroxine (SYNTHROID, LEVOTHROID) 112 MCG tablet Take 1 tablet (112 mcg total) by mouth in the morning for 7 days. 7 tablet 0 mupirocin (BACTROBAN) 2 % ointment Apply 1 Application topically 3 (three) times a day. Apply to infected area on abdomen 15 g 0 nystatin (MYCOSTATIN) cream Apply 1 Application topically in the morning and 1 Application before bedtime. 30 g 1 scopolamine (TRANSDERM-SCOP) 1 mg/[address] 1 patch on the skin every third day. 5 patch 1 No current facility-administered medications for this visit. (All medications reviewed and updated by provider since last office visit or hospitalization) Allergies: Cephalexin, Codeine, Tramadol, Anesthetics - amide type - select amino amides, Biaxin [clarithromycin], Sulfamethoxazole, and Trimethoprim Tobacco History: Social History Tobacco Use Smoking Status Former Smokeless Tobacco Never Tobacco Comments 15 yrs 1/2 PPD 25 yrs since quit (If patient a smoker, smoking cessation counseling offered) Social History: Social History Substance and Sexual Activity Alcohol Use Not Currently Review of Systems: Review of Systems Constitutional: Positive for unexpected weight change (Patient states she has gained 20 lb over the last 4 months). Negative for activity change and appetite change. HENT: Negative. Respiratory: Negative. Cardiovascular: Negative. Gastrointestinal: Negative. Musculoskeletal: Positive for arthralgias, joint swelling and myalgias. Negative for back pain. Skin: Positive for rash and wound. Neurological: Negative. Psychiatric/Behavioral: Negative. Physical Exam: BP 98/62 (BP Site: Left Arm, BP Postition: Sitting) Pulse 74 Temp 36.7 C (98 F) (Oral) Resp 18 Ht 160 cm (5' 3 ) Wt 69.6 kg (153 lb 6.4 oz) SpO2 98% BMI 27.17 kg/m Physical Exam Vitals reviewed. [employer] R[employer] Supervisor present: present. Constitutional: Appearance: Normal appearance. HENT: Head: Normocephalic and atraumatic. Cardiovascular: Rate and Rhythm: Normal rate and regular rhythm. Heart sounds: Normal heart sounds. Pulmonary: Effort: Pulmonary effort is normal. Breath sounds: Normal breath sounds. Abdominal: General: Bowel sounds are normal. Palpations: Abdomen is soft. Tenderness: There is no abdominal tenderness. Musculoskeletal: Right lower leg: No edema. Left lower leg: No edema. Skin: General: Skin is warm. Capillary Refill: Capillary refill takes less than 2 seconds. Comments: Purulent discharge from old midline surgical site the patient had from bariatric surgery, no surrounding erythema or warmth but very small opening of surgical site superficially to area marked above Neurological: General: No focal deficit present. Mental Status: She is alert and oriented to person, place, and time. Psychiatric: Mood and Affect: Mood normal. Behavior: Behavior normal. Assessment and Plan: Yari was seen today for follow-up. Diagnoses and all orders for this visit: Acquired hypothyroidism - TSH; Future - T4, free; Future Surgical wound infection - Wound culture; Future Candidiasis of skin Overweight (BMI 25.0-29.9) Motion sickness, initial encounter Other orders - scopolamine (TRANSDERM-SCOP) 1 mg/3 days; Place 1 patch on the skin every third day. - levothyroxine (SYNTHROID, LEVOTHROID) 112 MCG tablet; Take 1 tablet (112 mcg total) by mouth in the morning for 7 days. - nystatin (MYCOSTATIN) cream; Apply 1 Application topically in the morning and 1 Application before bedtime. - mupirocin (BACTROBAN) 2 % ointment; Apply 1 Application topically 3 (three) times a day. Apply to infected area on abdomen Follow-up: Since it has been since December when we found abnormal thyroid function tests, and patient has had 2 different doses of her Synthroid, will recheck her TSH and T4 today before sending new dose. Her weight gain is likely from abnormal thyroid function tests. Will obtain culture of old surgical site that has opened as patient is expressing some purulent discharge. She may use the mupirocin ointment in the meantime and keep clean with mild soap and water. She may use the nystatin cream to her skin folds when she develops a fungal rash. She should keep the areas dry as possible. Patient may use scopolamine patches during her cruise for possible motion sickness and was cautioned on possible side effects. Patient should follow up in August for routine wellness. MACI PAOVN APRN-PRODUCTION TECHNOLOGIST NATALI Corrales 04/27/24 [id number] [facility] [employer] [facility] Note Patient called that she felt that the device generator moved laterally when she lies on her left side and she pushed it medially. She was concerned that there was a problem. Chest x-ray was ordered and I compare it to the fluoroscopy obtained during the procedure and it appeared the same. The patient was brought to the office to check the device and it appeared to be functioning adequately. The device site appears to be healing very well without indication of swelling or bruising or any abnormality. Patient was advised that sometimes generator may feels that it is moving around after the swelling is down but usually it is secured in place very well. The patient should keep her follow-up visit as scheduled previously [facility] 02-29-2024 Telephone encounter Note Patient called say Dr. Hylton 02/21/2024. Says surgery was talked about also pain management. Patient would like to set up with pain management. [facility] 02-29-2024 Miscellaneous Notes Patient called say Dr. Hylton 02/21/2024. Says surgery was talked about also pain management. Patient would like to set up with pain management. documented in this encounter [facility] 02-22-2024 History of Present illness Narrative Images from the original note were not included. Subjective Patient ID: Yari Daily is a 58 y.o. female who presents for Foot Pain (Fx'd Rt foot in 2023, pain is till present. Most painful for her when she is standing/walking. Last Xrays she had were with Brayden Dang /SS: 8.5). HPI This is a new patient who presents to clinic with concern of right foot pain. Patient states that it 1st started a proximally 6 months ago. She got up from sitting on the couch and felt a sharp stabbing pain in the foot. She had follow up with ortho who had concern for possible anterior calcaneal stress fracture. MRI was obtained 09/08/2023 which was read as marrow edema throughout the calcaneus with possible anterior fracture line. Patient states that she was treated with 6 weeks of nonweightbearing and subsequent 6 weeks weight-bearing in a fracture boot. Patient continues to have pain along the lateral column of the foot. Worse with walking, standing. No treatment tried. Review of Systems Constitutional: Positive for activity change. Negative for appetite change. Respiratory: Negative for chest tightness and shortness of breath. Cardiovascular: Negative for chest pain. Musculoskeletal: Positive for arthralgias and gait problem. Skin: Negative for color change and wound. Neurological: Negative for weakness and numbness. Psychiatric/Behavioral: Negative for agitation and behavioral problems. Hematological: Does not bruise/bleed easily. Endocrine: Negative for cold intolerance and heat intolerance. Allergic/Immunologic: Negative for immunocompromised state. Past medical History Past Medical History: Diagnosis Date Arthritis Edema Fibromyalgia Heart attack (CMS/HCC) 09/2022 SVT HTN (hypertension) (CMS/HCC) Sleep apnea Thyroid disease (CMS/HCC) Medications Current Outpatient Medications: Calcium-Vitamin D-Vitamin K 500-100-40 MG-UNT-MCG chewable tablet, 1 tablet, Disp: , Rfl: HYDROmorphone (Dilaudid) 3 MG suppository, Insert into the rectum, Disp: , Rfl: levothyroxine (Synthroid, Levoxyl) 100 MCG tablet, Take 100 mcg by mouth in the morning., Disp: , Rfl: meloxicam (Mobic) 15 MG tablet, Take 1 tablet (15 mg) by mouth Daily for 21 days, Disp: 21 tablet, Rfl: 0 methylPREDNISolone (Medrol Dospak) 4 MG tablets, Take as directed on package., Disp: 21 tablet, Rfl: 0 Multiple Vitamin (Multi Vitamin) tablet, 1 (one) time each day at the same time, Disp: , Rfl: pravastatin (Pravachol) 20 MG tablet, 1 (one) time each day at the same time, Disp: , Rfl: Allergies Cephalexin, Codeine, Tramadol, Clarithromycin, Iodinated contrast media, Sulfamethoxazole, and Trimethoprim Past Surgical History Past Surgical History: Procedure Laterality Date BACK SURGERY BOWEL RESECTION CARDIAC PACEMAKER PLACEMENT 02/07/[address] Bilateral [address] GUIDED PERCUTANEOUS PERITONEAL OR RETROPERITONEAL FLUID COLLECTION DRAINAGE 05/05/2023 CT GUIDED PERCUTANEOUS PERITONEAL OR RETROPERITONEAL FLUID COLLECTION DRAINAGE 05/05/2023 GASTRIC BYPASS 2020 GASTRIC SLEEVE HEMORRHOIDECTOMY HERNIA REPAIR HERNIA REPAIR AK KNEE SCOPE,DIAGNOSTIC Left 12/12/2020 SHOULDER ARTHROSCOPY Right STOMACH SURGERY STOMACH WAS REMOVED DUE TO COMPLICATIONS OF GASTRIC SLEEVE TOTAL ABDOMINAL HYSTERECTOMY W/ BILATERAL SALPINGOOPHORECTOMY TRIGGER FINGER RELEASE Left Family History Family History Problem Relation Name Age of Onset Diabetes Mother Hypertension Mother Heart disease Mother Heart disease Father Hypertension Father Diabetes Father Objective Physical Exam Constitutional: Comments: Accompanied by her . HENT: Head: Normocephalic and atraumatic. Cardiovascular: Pulses: Normal pulses. Pulmonary: Effort: Pulmonary effort is normal. No respiratory distress. Abdominal: Palpations: There is no mass. Musculoskeletal: Cervical back: No rigidity. Comments: Weight-bearing examination reveals pes planus morphology. She is able to perform a double heel rise test which seems to aggravate symptoms. Right foot: Isolated and maximal tenderness within the 3rd interspace. There is tenderness to palpation near the 4/5 TMTJ as well. Negative grind test of this area. Proximal tenderness along this area is not as severe as tenderness within the 3rd interspace. Positive forefoot compression test with Kiesha's click. Negative Tinel sign with percussion of the deep, superficial peroneal nerve. Muscle strength 5/5 for all quadrants. Ankle dorsiflexion 0 degrees with the knee extended, flexed. Skin: Capillary Refill: Capillary refill takes less than 2 seconds. Findings: No lesion or rash. Neurological: Mental Status: She is alert. Comments: No loss of protective sensation, gross sensation intact. Psychiatric: Mood and Affect: Mood normal. Behavior: Behavior normal. Multiple radiographs of the right foot all nonweightbearing. Most recent 01/25/2024: No fractures or dislocations appreciated. MRI of the right ankle 09/08/2023: This was read as fairly diffuse bone marrow edema throughout the calcaneus with possible small subchondral fracture line anteriorly. Upon my personal review I do not see any significant marrow edema in the calcaneus. There is more significant marrow edema in the cuboid although I do not see any fracture line on the T1 image. Assessment/Plan ICD-10-CM 1. 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 Right foot pain M79.671 Ambulatory referral to Podiatry 3. Right ankle tendonitis M77.51 Ambulatory referral to Podiatry 4. Equinus contracture of right ankle M24.571 5. Stress fracture of right foot, initial encounter M84.374A Patient examined and evaluated. I personally reviewed her radiographs of the right foot, all of which are nonweightbearing. Additionally I personally reviewed her MRI from September of 2023 which was read as possible fracture of the calcaneus. I do not see any of the marrow edema in the calcaneus that is referred to on the radiologist's read. There is however significant marrow edema in the cuboid suspicious for stress reaction. I do not see any fracture line as indicated on MRI read. At this point patient continues to have pain along the lateral column. On examination her most significant pain is within the 3rd interspace. She could certainly be dealing with a Puentes's neuroma from chronic nonweightbearing, protected weight-bearing and gait abnormalities following treatment for suspected calcaneal stress fracture. At this time I recommend oral anti-inflammatory regimen to see if we can reduce inflammation around the nerve. Prescription for meloxicam and Mobic were sent to her pharmacy. Additionally I recommend ice, heat therapy as needed. Lastly I recommend reducing pressure over the nerve with orthotics, shoe gear and stretching exercises. Patient was fitted for and dispensed power steps today. Recommend stretching program focusing on gastrocnemius contracture to reduce forefoot overload. At this time patient is scheduled for left shoulder surgery. She is currently being worked up for this. In light of this she will hold the steroid and anti-inflammatory until cleared by her surgeon after surgery to take this medication. I was very clear that she is not to take this prior to surgery. She will give our office a call after her shoulder surgery when she begins taking the medication. I would like to see her approximately 1 month after beginning the medication. If she is still having issues at that time consider cortisone injection. Alternatively if she continues to have symptoms more consistent with degenerative changes or continued stress reaction near the cuboid I would consider repeat MRI. This note was created with the assistance of a speech recognition program. While intending to generate a timely document that accurately reflects the content of the visit, no guarantee can be provided that every grammatical or spelling mistake has been or will be identified or corrected. Thank you for your understanding. 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 She developed sinus node dysfunction and underwent implantation of a permanent pacemaker. She is feeling better from a cardiac standpoint. She has been having palpitations maybe once a day. Lasts seconds and resolves on its own. She c/o issues with her left rotator cuff and pain. She was due to have surgery after her ablation procedure but then she required a pacemaker which post-poned her shoulder surgery. 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 She is hoping to have shoulder surgery TAMIKO. Denies CP, dyspnea, orthopnea, PND, LE edema, syncope. 10/12/[address] Neal 2 weeks ago. He started flecainide along with metoprolol for SVT. She denies any change in sx's. She will have sx's 2-3 times a day, lasts 5-10mins at most. She gets chest discomfort and sweating when she has these. Her HR has been dropping in the 40-50s. She feels dizzy/LH during these times. In aug, she broke her right foot. She is non-weight bearing, hoping to have this lifted soon. 09/28/23 30-day event monitor did reveal presence of nonsustained atrial tachycardia however no A-fib or VT was seen. There were occasional PACs and PVCs noted. 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 Discussed since unable tolerate AV nancy blocking agents we need to consider EP study and will have her see dr. Neal as previously mentioned. 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 neal HPI: Yari Daily is a 58 y.o. 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 She was recently admitted for NSTEMI with cardiac cath that revealed angiographically normal coronary arteries normal LVEF. There is an echocardiogram 09/2022 that is reflected in documentation but we are pending receiving the results. She was at cardiac rehab where there was concern for SVT event/ A-fib. 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 She was on Ranexa for chest pain but it was determined that her symptoms were related to SVT and Ranexa was discontinued. Since then she was seen by Linda YANEZ and Lopressor was increased to 25mg Q and she has felt better. Event monitor placed from 01/06/2023 to 02/05/2023 revealed presence of SVT noted on 01/14/2023 at 11:26 AM consistent with what appeared to be narrow complex tachycardia with short RP interval likely AVNRT. no A-fib or VT was seen and occasional PVCs was noted. Medications: Aspirin 81 mg, Synthroid 100 mcg, metoprolol succinate 25 mg, pravastatin 20 mg ECG 10/06/2022 normal sinus rhythm ECG 01/07/2020 normal sinus rhythm with nonspecific T wave abnormality Echocardiogram 02/12/2023 Labs 01/03/2023 BMP unremarkable BUN 11, creatinine 1.69, K4.4, GFR 102 Refer to media tab for ECG Strips from the medical center rehab PMH: Past Medical History: Diagnosis Date Abnormal ECG AVNRT (AV nancy re-entry tachycardia) (CMS/HCC) Myocardial infarction (CMS/HCC) Vasospastic angina (CMS/HCC) PSH: Past Surgical History: Procedure Laterality Date BARIATRIC SURGERY CARDIAC CATHETERIZATION HERNIA MESH REMOVAL SH: Social Determinants of Health Tobacco Use: Medium Risk (12/16/2023) Patient History Smoking Tobacco Use: Former Smokeless Tobacco Use: Never Passive Exposure: Not on file Alcohol Use: Not on file Financial Resource Strain: Low Risk (12/16/2023) Overall Financial Resource Strain (CARDIA) Difficulty of Paying Living Expenses: Not hard at all Food Insecurity: No Food Insecurity (12/16/2023) Hunger Vital Sign Worried About Running Out of Food in the Last Year: Never true Ran Out of Food in the Last Year: Not on file Transportation Needs: No Transportation Needs (12/16/2023) Transportation Lack of Transportation (Medical): No Lack of Transportation (Non-Medical): Not on file Physical Activity: Not on file Stress: Not on file Social Connections: Not on file Int (more content not included)... [facility] 02-16-2024 Note One month follow up artrial flutter ablation/wound check. Review of Systems All other systems reviewed and are negative. [facility] 02-07-2024 Note DUAL CHAMBER PACEMAK ER IMPLANT PROCEDURE NOTE DATE OF PROCEDURE: 02/07/2024 PERFORMING PHYSICIAN: Dr. Solomon Neal CONSENT: Patient LOCATION: EP Lab PROCEDURE PERFORMED: 1. Implantation of pacemaker ([employer]) 2. Ultrasound guided venous access INDICATIONS: 1. Sinus node dysfunction. 2. Symptomatic bradycardia PROCEDURAL SEDATION: Versed and Fentanyl. Moderate sedation was administered by the sedation nurse under my supervision and noted in the CVL log. Intraprocedural face to face sedation time: 57min. Monitoring: Cardiac telemetry, Blood pressure, continuous pulse oxymetry. FLUOROSCOPY TIME: 1.8min/ 4mGray. 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 She was recently admitted for NSTEMI with cardiac cath that revealed angiographically normal coronary arteries normal LVEF. Patient reportd lightheaded with episodes of palpitations. Denies chest pain and SOB. She feel tired and dizzy when HR is slow but feel good when walking and no issues. She persisted to have bradycardia despite coming off B-blockers. Given that, decision was made to proceed with a dual-chamber pacemaker to treat underlying sinus node dysfunction. PROCEDURAL DETAILS: Patient was placed in trendelenberg position and ultrasound was used to evaluate the patency of left axillary vein and for venous access. Left axillary venous access was obtained using modified seldinger technique using a 5 Grenadian micro-puncture needle on two occasions and 0.35 wires were placed. Local infiltration of 1% Lidocaine was performed, and an incision was created in the left upper chest. Dissection was then performed using cautery down to the fascial plane above the muscle. The belly of the pectoralis was identified and with gentle blunt dissection a small pocket was created for the device above the muscle. 6 [place] Safesheaths were placed over the wire. An active fixation [employer] pacing lead was then delivered through the 6Fsheath to the right ventricle. After confirmation of lead position on orthogonal views (LOMELI and FAROESE) to confirm septal position, the screw was activated, and the lead was placed in the right ventricular mid cavity towards the septum. After confirmation of good sensing parameters, injury pattern and pacing thresholds, 10V pacing was done and no diaphragmatic stimulation was noted. It was then secured in the pocket using three 1-0 Silk sutures. Then an active fixation [employer] lead was delivered through the 6Fsheath to the right atrial appendage. After confirmation of lead position on orthogonal views (LOMELI and FAROESE), the screw was activated. Good sensing parameters, injury pattern and pacing thresholds, the lead was then tested using Lambert's maneuver. 10V pacing was done and no diaphragmatic stimulation was noted. It was then secured in the pocket using three 1-0 Silk sutures. Pocket hemostasis was secured, and it was then copiously and vigorously irrigated with antibiotic solution. The leads were attached to the generator and then wrapped under the device and the device was tacked to underlying muscle and placed in the pocket. The pocket was closed in layers: subcutaneous layer using 2-0 Vicryl; skin using 3-0 absorbable monofilament suture. Glue was applied and Tegaderm dressing was placed on top. Lead parameters were then rechecked through the device as noted below. The patient was returned to the short stay room for post procedural observation. No immediate procedural complications were noted. POST PROCEDURE EXAM: Patient was hemodynamically stable. COMPLICATIONS: None. IMPRESSION: 1. Successful dual chamber pacemaker with excellent pacing and sensing parameters. RECOMMENDATIONS: 1. Occlusive dressing to be removed after 2 weeks. 2. Do not wet the incision for 7 days. 3. No lifting heavy weights using arm on the same side x 3weeks 4. Do not lift elbow above the shoulder on the same side for 4-6 weeks. 5. No driving for 1 month. 6. F/u in device clinic 1 week from discharge or sooner for any concerns. Solomon Neal MD Cardiac Electrophysiology [facility] 02-07-2024 Note Patient: Yari mcintosh Procedure Information Date/Time: 02/07/24 1000 Procedure: Implant PPM - PC APPROVED Location: [facility] / [facility] (Cath) Providers: Solomon Neal MD Clinical information reviewed: Allergies Meds Physical Exam Airway Mallampati: II TM distance: >3 FB Neck ROM: full Cardiovascular Dental Pulmonary Abdominal Anesthesia Plan ASA 2 CSE Anesthetic plan and risks discussed with patient. Use of blood products discussed with patient who. Additional Equipment Requests [facility] 01-24-2024 Telephone encounter Note I spoke with patient last week, informed her that we would have to wait to until after pacemaker sx to even consider proceeding with sx and scheduled an appt with Dr. Ac 1-2 weeks after her pacemaker sx to further discuss surgical options at that point. [facility] 01-24-2024 Miscellaneous Notes I spoke with patient last week, informed her that we would have to wait to until after pacemaker sx to even consider proceeding with sx and scheduled an appt with Dr. Ac 1-2 weeks after her pacemaker sx to further discuss surgical options at that point. Rohini, Please notify pt per last office note: if a repair is made she could be in a sling for at least 6 weeks and not lifting anything heavier than a coffee cup for at least 12 weeks. .. Not sure when she is considering rescheduling.. but would make Dr. Ac aware of her intentions incase extended time before surgery would affect his surgical plan.. Pt called states she had LT Shoulder sx scheduled but cancelled it due to health issues, wondering how long she would be in a sling/laid up for if she had the surgery. Also states she is scheduled for pacemaker sx on February 09, and has a vacation in May. Please advise, call back [phone] documented in this encounter [facility] 01-21-2024 Telephone encounter Note Rohini, Please notify pt per last office note: if a repair is made she could be in a sling for at least 6 weeks and not lifting anything heavier than a coffee cup for at least 12 weeks. .. Not sure when she is considering rescheduling.. but would make Dr. Ac aware of her intentions incase extended time before surgery would affect his surgical plan.. [facility] 01-20-2024 Telephone encounter Note Pt called states she had LT Shoulder sx scheduled but cancelled it due to health issues, wondering how long she would be in a sling/laid up for if she had the surgery. Also states she is scheduled for pacemaker sx on February 09, and has a vacation in May. Please advise, call back [phone] [facility] 12-21-2023 Note [facility] Consult Note Reason for visit: AVNRT s/p ablation, 12/21/23 Patient here for follow up [facility] and [facility] ED. She gets lightheaded with episodes of palpitations. Denies chest pain and SOB. She feel tired and dizzy when HR is slow but feel good when walking and no issues. When she was in ED, she was symptomatic as noted with EKG below. EKG 12/14/23 12/13/23 09/28/23 30-day event monitor did reveal presence of nonsustained atrial tachycardia however no A-fib or VT was seen. There were occasional PACs and PVCs noted. 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 Discussed since unable tolerate AV nancy blocking agents we need to consider EP study and will have her see dr. Neal as previously mentioned. 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 neal HPI: Yari Daily is a 58 y.o. 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 She was recently admitted for NSTEMI with cardiac cath that revealed angiographically normal coronary arteries normal LVEF. There is an echocardiogram 09/2022 that is reflected in documentation but we are pending receiving the results. She was at cardiac rehab where there was concern for SVT event/ A-fib. 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 She was on Ranexa for chest pain but it was determined that her symptoms were related to SVT and Ranexa was discontinued. Since then she was seen by Linda YANEZ and Lopressor was increased to 25mg Q and she has felt better. Event monitor placed from 01/06/2023 to 02/05/2023 revealed presence of SVT noted on 01/14/2023 at 11:26 AM consistent with what appeared to be narrow complex tachycardia with short RP interval likely AVNRT. no A-fib or VT was seen and occasional PVCs was noted. Medications: Aspirin 81 mg, Synthroid 100 mcg, metoprolol succinate 25 mg, pravastatin 20 mg ECG 10/06/2022 normal sinus rhythm ECG 01/07/2020 normal sinus rhythm with nonspecific T wave abnormality Echocardiogram 02/12/2023 Labs 01/03/2023 BMP unremarkable BUN 11, creatinine 1.69, K4.4, GFR 102 Refer to media tab for ECG Strips from the medical center rehab PMH: Past Medical History: Diagnosis Date Abnormal ECG AVNRT (AV nancy re-entry tachycardia) (CMS/HCC) Myocardial infarction (CMS/HCC) Vasospastic angina (CMS/HCC) PSH: Past Surgical History: Procedure Laterality Date BARIATRIC SURGERY CARDIAC CATHETERIZATION HERNIA MESH REMOVAL SH: Social Determinants of Health Tobacco Use: Medium Risk (12/16/2023) Patient History Smoking Tobacco Use: Former Smokeless Tobacco Use: Never Passive Exposure: Not on file Alcohol Use: Not on file Financial Resource Strain: Low Risk (12/16/2023) Overall Financial Resource Strain (CARDIA) Difficulty of Paying Living Expenses: Not hard at all Food Insecurity: No Food Insecurity (12/16/2023) Hunger Vital Sign Worried About Running Out of Food in the Last Year: Never true Ran Out of Food in the Last Year: Not on file Transportation Needs: No Transportation Needs (12/16/2023) Transportation Lack of Transportation (Medical): No Lack of Transportation (Non-Medical): Not on file Physical Activity: Not on file Stress: Not on file Social Connections: Not on file Intimate Partner Violence: Unknown (12/16/2023) Humiliation, Afraid, Rape, and Kick questionnaire Fear of Current or Ex-Partner: No Emotionally Abused: Not on file Physically Abused: Not on file Sexually Abused: Not on file Depression: Not on file Housing Stability: Low Risk (12/16/2023) Housing Stability Vital Sign Unable to Pay for Housing in the Last Year: Not on file Number of Places Lived in the Last Year: Not on file Unstable Housing in the Last Year: No Utilities: Not At Risk (12/16/2023) [facility] Utilities Threatened with loss of utilities: No Allergies: Allergies Allergen Reactions Codeine Anaphylaxis Tolerated hydromorphone 03/2022 Cephalexin Hives and Other Other reaction(s): Other: See Comments Peeling of skin Peeling of skin. Has received multiple courses of (more content not included)... [facility] 12-18-2023 Note Hospital Medicine Discharge Summary Final Discharge Diagnosis: Palpitations, with known history of SVT/AVNRT and status post ablation on 12/07 Admission Diagnosis: Palpitations [R00.2] Palpitation [R00.2] Hospital course: Yari Daily is an 58 y.o. female who came to ED on 12/15 from home with heart palpitations. Patient has past medical history of NSTEMI September 2022 likely d/t vasospasm, COPD, hypertension, GERD without esophagitis, hypothyroidism and SVT s/p ablation 1wk prior to admission. She reported since her procedure she has had increased sensation of palpitations associated with dizziness and lightheadedness. She went to [facility] a few days prior and they monitored overnight in the ER. She did not have any signs of SVT, but she was discharged on an event monitor. She also reported that they had increased her Synthroid based off of TSH checked in the ER. She continued to have palpitations at home so she came to [facility] ER, and cardiology recommended admission. Throughout this episode, she has denied chest pain, shortness of breath. Patient was evaluated by cardiology team and device event monitor interrogation-[facility] has been notified. patient recommended to continue to take her thyroid medications as scheduled and to follow-up with cardiology in particular EP clinic in [address] Robinson MD, Yari is advised to follow up with you within 1-2 weeks. Follow-up with: EP in 1 month Scheduled appointments: Future Appointments Date Time Provider Department Center 12/28/2023 3:20 PM RENATA Agudelo [facility] 01/25/2024 9:00 AM Ranjith Asif, ENVIRONMENTAL SAFETY SPECIALIST [facility] Your medication list START taking these medications Instructions Last Dose Given Next Dose Due polyethylene glycol 17 gram packet Commonly known as: Glycolax Take 17 g by mouth if needed each day (constipation). CHANGE how you take these medications Instructions Last Dose Given Next Dose Due levothyroxine 125 mcg tablet Commonly known as: Synthroid, Levoxyl What changed: medication strength when to take this Take 1 tablet (125 mcg) by mouth before breakfast for 97 doses. CONTINUE taking these medications Instructions Last Dose Given Next Dose Due aspirin 81 mg chewable tablet CALCIUM CITRATE (BULK) MISC famotidine 20 mg tablet Commonly known as: Pepcid oxyCODONE 5 mg immediate release tablet Commonly known as: Roxicodone pravastatin 20 mg tablet Commonly known as: Pravachol Take 1 tablet (20 mg) by mouth at bedtime. Where to Get Your Medications Information about where to get these medications is not yet available Ask your nurse or doctor about these medications levothyroxine 125 mcg tablet polyethylene glycol 17 gram packet Yari is allergic to codeine, cephalexin, and tramadol. Disposition: Home or Self Care () Discharge Condition: Stable Code Status: Prior Diagnostic Results Hematology: Results from last 7 days Lab Units 12/17/23 0540 12/16/23 1208 WBC AUTO 10*3/uL 4.96 5.32 HEMOGLOBIN g/dL 11.6* 11.3* HEMATOCRIT % 37.4 35.9* MCV fL 84.8 82.9 PLATELETS AUTO 10*3/uL 235 233 Chemistry: Results from last 7 days Lab Units 12/17/23 0540 12/16/23 1208 SODIUM mmol/L 141 138 POTASSIUM mmol/L 4.3 4.2 CHLORIDE mmol/L 108* 106 CO2 mmol/L 25 24 BUN mg/dL 19 18 CREATININE mg/dL 0.60 0.66 GLUCOSE mg/dL 87 86 MAGNESIUM mg/dL 1.9 1.8* CALCIUM mg/dL 8.8 9.1 Results from last 7 days Lab Units 12/16/23 1208 AST U/L 26 ALT U/L 33 ALK PHOS U/L 59 BILIRUBIN TOTAL mg/dL 0.5 Test Results Pending At Discharge: Diet at the time of discharge: regular diet and cardiac diet Activity: Normal activity as tolerated Objective Blood pressure 110/84, pulse 64, temperature 36.6 ???C (97.8 ???F), resp. rate 18, height 1.6 m (5' 3 ), weight 66.5 kg (146 lb 9.6 oz), SpO2 (!) 88 %. General: Alert and oriented x3. Cardiology: Normal rate, regular rhythm. Lungs: Clear to auscultation, no wheezes, rales or rhonchi, symmetric air entry. Abdomen: Soft, non tender, non distended. Extremities: No pitting edema. Neurology: No focal neuro deficit noted. Total time for discharge - review of data, exam, discussion with providers and care-team, med-rec and orders, arranging follow up, counseling of patient and/or family and documentation was 60 minutes. Signed Cj Peterson MD [facility] 12/19/2023 2:09 PM [facility] 12-18-2023 Note Attestation signed by Cj Peterson MD at 12/18/2023 10:45 AM As the teaching physician, I have personally performed or re-performed the history of present illness, physical exam and medical decision making activities of the encounter and verified the medical student's documentation. I made pertinent changes as necessary to ensure accurate documentation. Hospital Medicine Daily Progress Note - 12/18/2023 10:00 AM; Room: 3174/3174- Admission: 12/16/2023 10:47 AM; Length of stay: 0 days THE HOSPITALIST TEAM PREFERS TO USE [employer] FOR COMMUNICATION 7AM-7PM. IF I DO NOT RESPOND WITHIN 15 MINUTES, PLEASE PAGE ME/CALL THROUGH THE OIL HEATER OPERATOR. FROM 7PM-7AM, PLEASE PAGE [phone](COVR) Code Status: Full Code Barriers to Discharge: Cardiology to evaluate heart palpitations Expected Discharge Date: TBD Discharge Destination: TBD Overview Patient is seen for evaluation and management of possible reentrant arrhythmia s/p ablation. Subjective Seen at bedside. 1 episode of vomiting after dinner last night. Denies nausea today. Heart palpitations still present. Denies CP, SOB, dizziness, abd pain. Physical Exam Visit Vitals BP 117/66 Pulse 69 Temp 36.5 ???C (97.7 ???F) Resp 15 Intake/Output Summary (Last 24 hours) at 12/18/2023 1000 Last data filed at 12/17/2023 1500 Gross per 24 hour Intake 840 ml Output -- Net 840 ml Physical Exam Constitutional: Appearance: Normal appearance. HENT: Head: Normocephalic and atraumatic. Nose: Nose normal. Eyes: Conjunctiva/sclera: Conjunctivae normal. Cardiovascular: Rate and Rhythm: Normal rate and regular rhythm. Pulses: Normal pulses. Heart sounds: Normal heart sounds. Pulmonary: Effort: Pulmonary effort is normal. Breath sounds: Normal breath sounds. Abdominal: General: Abdomen is flat. Palpations: Abdomen is soft. Musculoskeletal: Right lower leg: No edema. Left lower leg: No edema. Skin: General: Skin is warm and dry. Coloration: Skin is not pale. Neurological: General: No focal deficit present. Mental Status: She is alert and oriented to person, place, and time. Psychiatric: Mood and Affect: Mood normal. Estimated body mass index is 25.97 kg/m??? as calculated from the following: Height as of this encounter: 1.6 m (5' 3 ). Weight as of this encounter: 66.5 kg (146 lb 9.6 oz). Active Inpatient Problems Principal Problem: Palpitations Active Problems: Essential hypertension Gastroesophageal reflux disease without esophagitis Hypothyroid SVT (supraventricular tachycardia) ([facility]) Assessment and Plan Hospital Medicine Daily Progress Note - 12/17/2023 11:28 AM; Room: [facility]174- Admission: 12/16/2023 10:47 AM; Length of stay: 0 days THE HOSPITALIST TEAM PREFERS TO USE Everwise FOR COMMUNICATION 7AM-7PM. IF I DO NOT RESPOND WITHIN 15 MINUTES, PLEASE PAGE ME/CALL THROUGH THE OIL HEATER OPERATOR. FROM 7PM-7AM, PLEASE PAGE [phone](COVR) Code Status: Full Code Barriers to Discharge: Cardiology to evaluate heart palpitations Expected Discharge Date: TBD Discharge Destination: TBD Overview Patient is seen for evaluation and management of possible reentrant arrhythmia s/p ablation. Subjective Seen at bedside. [place] dizzy, headache, and nauseous with 1 episode of nonbloody vomit yesterday. Feels much better today, complaining only of heart palpitations. Denies dizziness, CP, SOB, nausea. Patient mentioned she had an NSTEMI September 2022 with normal cardiac cath and LVEF likely d/t vasospasm. An SVT, possible AVNRT was noted in hx documentation November 2022 at cardiac rehab. Physical Exam Visit Vitals BP 118/85 Pulse 54 Temp 36.4 ???C (97.5 ???F) (Temporal) Resp 13 Intake/Output Summary (Last 24 hours) at 12/17/2023 1128 Last data filed at 12/17/2023 0915 Gross per 24 hour Intake 240 ml Output 500 ml Net -260 ml Physical Exam Constitutional: Appearance: Normal appearance. HENT: Head: Normocephalic and atraumatic. Nose: Nose normal. Eyes: Conjunctiva/sclera: Conjunctivae normal. Cardiovascular: Rate and Rhythm: Regular rhythm. Bradycardia present. Pulses: Normal pulses. Heart sounds: Normal heart sounds. Pulmonary: Effort: Pulmonary effort is normal. Breath sounds: Normal breath sounds. Abdominal: General: Abdomen is flat. Palpations: Abdomen is soft. Musculoskeletal: Right lower leg: No edema. Left lower leg: No edema. Skin: General: Skin is warm and dry. Coloration: Skin is not pale. Neurological: General: No focal deficit present. Mental Status: She is alert and oriented to person, place, and time. Psychiatric: Mood and Affect: Mood normal. Estimated body mass index is 25.97 kg/m??? as calculated from the following: Height as of this encounter: 1.6 m (5' 3 ). Weight as of this enc (more content not included)... [facility] 12-18-2023 Note Cardiology Progress Note I personally saw and examined the patient on the same date of service as resident/fellow Lisa. I discussed the findings and therapeutic plan with the resident/fellow Lisa. I agree with the documentation, except for any edits/updates below. Teaching Physician's Revisions: Patient states that she had a few episodes of palpitations since she was admitted to the floor and sometimes it lasts up to 15 minutes however no arrhythmia whatsoever noted on the monitor. The patient is also carrying a 7-day event monitor which we are not able to track. Other than that patient has been doing well without chest pain or shortness of breath, her vitals are stable, she does not have any other symptoms such as chest pain or shortness of breath. She can go home from the cardiac point of view and continue event monitor and follow-up with Dr. Neal as already scheduled. Dr. Martin Subjective Subjective: No acute events overnight. Patient was seen and examined today-she is still reporting palpitations. Telemetry showing no arrhythmias. Objective Objective: Patient Vitals for the past 24 hrs: BP Temp Temp src Pulse Resp SpO2 12/18/23 0805 117/66 36.5 ???C (97.7 ???F) -- 69 15 -- 12/18/23 0453 113/72 -- -- 50 11 99 % 12/17/23 2350 112/70 -- -- 65 13 93 % 12/17/23 1940 112/81 36.6 ???C (97.9 ???F) Temporal 60 19 98 % 12/17/23 1525 118/85 36.4 ???C (97.5 ???F) Temporal 60 19 98 % 12/17/23 1415 124/75 36.7 ???C (98.1 ???F) Temporal 76 12 -- 12/17/23 1400 120/74 36.4 ???C (97.5 ???F) Temporal 69 12 -- 12/17/23 1345 121/74 36.5 ???C (97.7 ???F) Temporal 71 14 -- 12/17/23 1130 118/72 36.4 ???C (97.5 ???F) Temporal 75 16 97 % Physical Examination: GENERAL: AOx3, in no acute distress. HEAD: Atraumatic, normocephalic. EYES: CHE, EOMI. NECK: No JVD present. CARDIAC: RRR. No murmur, rubs, or gallops. RESPIRATORY: CTAB, no increased effort of breathing. ABDOMEN: Soft, nontender, nondistended. EXTREMITIES: No lower extremity edema, peripheral pulses are 2+ bilaterally. NEURO: No focal deficits Relevant Lab Results Encounter Date: 12/16/23 ECG 12 lead Result Value Ventricular Rate 54 Atrial Rate 54 AK Interval 220 QRS DURATION 102 QT Interval 434 QTC CALCULATION(BAZETT) 411 P Schulenburg 78 R-Schulenburg 49 T Wave Schulenburg 60 Impression Sinus bradycardia with 1st degree A-V block Cannot rule out Anterior infarct , age undetermined Abnormal ECG Lab Results Component Value Date TROPONINI 0.02 12/16/2023 Complete Echo (TTE) w/wo Imaging Agent, Strain, 3D, Bubble Study Result Date: 12/17/2023 1 1 [facility] Heart Station [address] [place] [address] [phone] (fax) Echocardiogram-[facility] Name: YARI DAILY Study Date: 12/17/2023 02:02 PM B/P: 121 mmHg/74 mmHg HR: 50 bpm Date of : 1965 Location: [facility] Height: 63 in. Age: 58 year(s) Patient Room: 3174 Weight: 146 lb. Gender: Female Patient Status: OutPt BSA: 1.69 m2 Indication: Tachycardia., S/P SVT Ablation (12/08/2023) Examination: Echocardiogram (Complete) Image Quality: Good Patient Consent: Procedure explained to patient Conclusions Left Ventricle: The left ventricle is normal size. Global left ventricular systolic function is normal. The calculated 2D EF is 72 %. Left ventricular wall thickness is normal. No regional wall motion abnormality. Normal diastolic function. Right Ventricle: The right ventricle is normal in size. Normal right ventricular systolic function. Doppler studies suggest normal right sided pressures. Left Atrium: The left atrium is normal in size. Pericardium: No pericardial effusion. Overall Conclusions: No significant valvular abnormalities Measurements Left Ventricle Label Value Normal Value LVOTd 2.1 cm (18cm - 20cm) LVOT VTI 22.7 cm (18cm - 22cm) LVOT PGmax 4 mmHg LVDd, 2D 4.67 cm (3.9cm - 5.3cm) LVDs, 2D 2.99 cm (2.1cm - 4cm) IVSd, 2D 1.07 cm (0.6cm - 1.1cm) LVPWd, 2D 0.71 cm (0.6cm - 0.9cm) LV Mass, 2D ASE 139.12 g LV Mass Index, 2D ASE 82.3 g/m?? (44g/m?? - 88.4g/m??) RWT, MM 0.3 (0 - 0.42) LVSVI, 2D 39.1 ml/m2 LVOT PGmean 2 mmHg LVSV_LVOT 79 ml Right Ventricle Label Value Normal Value RVDd, 2D 3.46 cm (1.9cm - 3.8cm) TAPSE 2.9 cm Left Atrium Label Value Normal Value LA Volume, BP 55 ml (22ml - 52ml) LADs, 2D 4.1 cm (2.7cm - 3.8cm) LAESV index, BP 32.5 ml/m?? Right Atrium Label Value Normal Value RA Area 17.3 cm?? Aortic Valve Label Value Normal Value AV DVI 0.68 AV VTI 32.7 cm Mitral Valve Label Value Normal Value MV E Vmax 0.97 m/s MV A Vmax 0.63 m/s MV E/A 1.54 MV E/E' lateral 9.1 MV E' lateral 0.11 m/s Tricuspid Valve Label Value Normal Value RA Pressure 3 mmHg RVSP 21 mmHg TR Vmax 2.14 m/s Aorta Label Value Normal Value AoAsc 3.2 cm AoRoot, 2D 3 cm (1.4cm - 3.8cm) Valvular Assessment LVOT 0.7 - 1.1 m/sec Aortic Valve 1.0 - 1.7 m/sec Mitral Valve 0.6 - 1.3 m/sec Tricuspid (more content not included)... [facility] 12-17-2023 Note Attestation signed by Cj Peterson MD at 12/17/2023 1:16 PM As the teaching physician, I have personally performed or re-performed the history of present illness, physical exam and medical decision making activities of the encounter and verified the medical student's documentation. I made pertinent changes as necessary to ensure accurate documentation. Hospital Medicine Daily Progress Note - 12/17/2023 11:28 AM; Room: [address] [place] [address] Admission: 12/16/2023 10:47 AM; Length of stay: 0 days THE HOSPITALIST TEAM PREFERS TO USE [employer] FOR COMMUNICATION 7AM-7PM. IF I DO NOT RESPOND WITHIN 15 MINUTES, PLEASE PAGE ME/CALL THROUGH THE OIL HEATER OPERATOR. FROM 7PM-7AM, PLEASE PAGE [phone](COVR) Code Status: Full Code Barriers to Discharge: Cardiology to evaluate heart palpitations Expected Discharge Date: TBD Discharge Destination: TBD Overview Patient is seen for evaluation and management of possible reentrant arrhythmia s/p ablation. Subjective Seen at bedside. [place] dizzy, headache, and nauseous with 1 episode of nonbloody vomit yesterday. Feels much better today, complaining only of heart palpitations. Denies dizziness, CP, SOB, nausea. Patient mentioned she had an NSTEMI September 2022 with normal cardiac cath and LVEF likely d/t vasospasm. An SVT, possible AVNRT was noted in hx documentation November 2022 at cardiac rehab. Physical Exam Visit Vitals BP 118/85 Pulse 54 Temp 36.4 ???C (97.5 ???F) (Temporal) Resp 13 Intake/Output Summary (Last 24 hours) at 12/17/2023 1128 Last data filed at 12/17/2023 0915 Gross per 24 hour Intake 240 ml Output 500 ml Net -260 ml Physical Exam Constitutional: Appearance: Normal appearance. HENT: Head: Normocephalic and atraumatic. Nose: Nose normal. Eyes: Conjunctiva/sclera: Conjunctivae normal. Cardiovascular: Rate and Rhythm: Regular rhythm. Bradycardia present. Pulses: Normal pulses. Heart sounds: Normal heart sounds. Pulmonary: Effort: Pulmonary effort is normal. Breath sounds: Normal breath sounds. Abdominal: General: Abdomen is flat. Palpations: Abdomen is soft. Musculoskeletal: Right lower leg: No edema. Left lower leg: No edema. Skin: General: Skin is warm and dry. Coloration: Skin is not pale. Neurological: General: No focal deficit present. Mental Status: She is alert and oriented to person, place, and time. Psychiatric: Mood and Affect: Mood normal. Estimated body mass index is 25.97 kg/m??? as calculated from the following: Height as of this encounter: 1.6 m (5' 3 ). Weight as of this encounter: 66.5 kg (146 lb 9.6 oz). Active Inpatient Problems Principal Problem: Palpitations Active Problems: Essential hypertension Gastroesophageal reflux disease without esophagitis Hypothyroid SVT (supraventricular tachycardia) ([facility]) Assessment and Plan Heart palpitations Lightheadedness Possible reentrant arrhythmia s/p ablation Telemetry monitoring HR 50s-60s Magnesium 1.8 Cardiology consulted by ER team No significant drop with orthostatic blood pressures CXR 12/15 negative GERD without esophagitis Continue her Pepcid as needed Hypothyroidism TSH 14.8, T4 0.62 Currently on Synthroid 112mcg PO daily, but patient reports having it increased to 125mcg Increase to Synthroid 125mcg PO daily Admit under observation Ambulate as tolerated Continuous telemetry Daily BMP and CBC to evaluate kidney function, electrolytes, hemoglobin WBC VTE Prophylaxis: Heparin subcutaneous Scheduled Meds aspirin, 81 mg, oral, Daily with breakfast heparin (porcine), 5,000 Units, subcutaneous, q12h [facility] [START ON 12/18/2023] levothyroxine, 125 mcg, oral, Daily pravastatin, 20 mg, oral, Nightly Pertinent Investigations Hematology: Results from last 7 days Lab Units 12/17/23 0540 12/16/23 1208 WBC AUTO 10*3/uL 4.96 5.32 HEMOGLOBIN g/dL 11.6* 11.3* HEMATOCRIT % 37.4 35.9* MCV fL 84.8 82.9 PLATELETS AUTO 10*3/uL 235 233 Chemistry: Results from last 7 days Lab Units 12/17/23 0540 12/16/23 1208 SODIUM mmol/L 141 138 POTASSIUM mmol/L 4.3 4.2 CHLORIDE mmol/L 108* 106 CO2 mmol/L 25 24 BUN mg/dL 19 18 CREATININE mg/dL 0.60 0.66 GLUCOSE mg/dL 87 86 MAGNESIUM mg/dL 1.9 1.8* CALCIUM mg/dL 8.8 9.1 Results from last 7 days Lab Units 12/16/23 1208 AST U/L 26 ALT U/L 33 ALK PHOS U/L 59 BILIRUBIN TOTAL mg/dL 0.5 Historical Values: (Includes values prior to this admission) Lab Results Component Value Date TSH 14.80 (H) 12/16/2023 FREET4 0.62 (L) 12/16/2023 No results found for: [id number] , IRON , TIBC , C3 , C4 , WATSON , CANCA , ASO , PSA , CEA , CA125 , CA199 , AFP , CA153 Imaging XR chest 1 view Narrative: XR CHEST 1 VIEW 12/16/2023 11:47 AM CLINICAL INDICATIONS: Chest pain. Heart m (more content not included)... [facility] 12-16-2023 Note Hospital Medicine History and Physical 12/16/2023 3:25 PM THE HOSPITALIST TEAM PREFERS TO USE [email or web address] CHAT FOR COMMUNICATION 7AM-7PM. IF I DO NOT RESPOND WITHIN 15 MINUTES, PLEASE PAGE ME/CALL THROUGH THE OIL HEATER OPERATOR. FROM 7PM-7AM, PLEASE PAGE [phone](COVR) Chief Complaint Chief Complaint Patient presents with Palpitations States she has been feeling missed beats and she is on a heart monitor. States [facility] clinic told her to come to [facility] History of Present Illness Yari Daily is an 58 y.o. female who came from home with heart palpitations. Patient has past medical history of COPD, hypertension, GERD without esophagitis, hypothyroidism and SVT. Patient underwent ablation procedure with Dr. Sood last week for her SVT. She reports since her procedures she has had increased sensation of palpitations associated with dizziness and lightheadedness. She reports she went to [facility] a couple of days ago and they monitored overnight in the ER, she did not have any signs of SVT but she was discharged on an event monitor. She also reports that they had increased her Synthroid based off of TSH checked they did in the ER. She went home and continue to have palpitations so she called her temperature regulator pyrometer office who told her to come to the ER. ER reports that they spoke with cardiology who recommended admission with cardiology consult. She denies any chest pain, no shortness of breath. Denies any other symptoms. Labs; WBC 5.32, hemoglobin 11.3, troponin 0.02, sodium 138, K4.2, creatinine 0.66 Review of System and Physical Exam Temp: [36.3 ???C (97.4 ???F)] 36.3 ???C (97.4 ???F) Heart Rate: [51-65] 59 Resp: [15-21] 15 BP: (113-141)/(75-92) 140/78 Physical Exam Vitals reviewed. Constitutional: General: She is awake. She is not in acute distress. Appearance: Normal appearance. She is not ill-appearing. Cardiovascular: Rate and Rhythm: Normal rate and regular rhythm. Pulses: Radial pulses are 2+ on the right side and 2+ on the left side. Heart sounds: Normal heart sounds. Pulmonary: Effort: Pulmonary effort is normal. No tachypnea, accessory muscle usage or respiratory distress. Breath sounds: Normal breath sounds. Abdominal: General: Bowel sounds are normal. There is no distension. Palpations: Abdomen is soft. Tenderness: There is no abdominal tenderness. Musculoskeletal: Right lower leg: No edema. Left lower leg: No edema. Skin: General: Skin is warm and dry. Neurological: Mental Status: She is alert and oriented to person, place, and time. Mental status is at baseline. Psychiatric: Attention and Perception: Attention normal. Mood and Affect: Mood normal. Speech: Speech normal. Behavior: Behavior is cooperative. Review of Systems Constitutional: Positive for fatigue. HENT: Negative. Eyes: Negative. Respiratory: Negative. Cardiovascular: Positive for palpitations. Gastrointestinal: Negative. Endocrine: Negative. Genitourinary: Negative. Musculoskeletal: Negative. Skin: Negative. Allergic/Immunologic: Negative. Neurological: Positive for dizziness and light-headedness. Hematological: Negative. Psychiatric/Behavioral: Negative. Problem List Patient Active Problem List Diagnosis Date Noted Palpitations 12/16/2023 Closed nondisplaced fracture of anterior process of right calcaneus 10/05/2023 Postmenopausal 10/05/2023 Chest pain, rule out acute myocardial infarction 08/25/2023 NSTEMI (non-ST elevated myocardial infarction) ([facility]/HCC) 08/25/2023 Chronic abdominal wound infection, sequela 06/29/2023 Abdominal wall fluid collections 05/03/2023 Vasospastic angina (CMS/HCC) Chronic eczema of hand 01/06/2023 Hypertriglyceridemia 01/06/2023 Obesity 01/06/2023 Vitamin D deficiency 01/06/2023 Tinea pedis 01/06/2023 Acute postoperative pain 12/31/2022 S/P repair of ventral hernia 12/31/2022 SVT (supraventricular tachycardia) (CMS/HCC) 12/17/2022 Former smoker 12/16/2022 Gastroesophageal reflux disease without esophagitis 12/16/2022 History of coronary vasospasm 12/16/2022 History of non-ST elevation myocardial infarction (NSTEMI) 12/16/2022 Hyperlipidemia 12/16/2022 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) 11/27/2022 Recurrent incisional hernia 09/21/2022 Gastric leak 03/03/2022 Dehydration 12/13/2021 Gastric perforation ([facility]/HCC) 12/13/2021 Mild protein-calorie malnutrition ([facility]/HCC) 12/13/2021 Obesity, Class I, BMI 30-34.9 12/13/2021 On total parenteral nutrition (TPN) 12/13/2021 Shortness of breath 08/29/2020 Abnormal cardiovascular stress test 06/19/2019 Essential hypertension 06/13/2019 Keratoderma 04/28/2018 Arthralgia of multiple joints 08/23/2017 History of uveitis 08/23/2017 Arthritis 07/04/2017 Postoperative seroma of subcutaneous tissue after non-dermatologic procedure 02/08/2017 Abdominal wall seroma 01/27/2017 Obesity, Class III, BMI 40-49.9 (more content not included)... [facility] 12-08-2023 Note EP STUDY AND AVNRT A BLATION PROCEDURE NOTE DATE OF PROCEDURE: 12/08/2023 PERFORMING PHYSICIAN: Dr. Solomon Neal INDICATIONS FOR PROCEDURE: 1. SVT CONSENT: Patient LOCATION: EP Lab PROCEDURAL SEDATION: Versed and Fentanyl. Moderate sedation was administered by the sedation nurse under my supervision and noted in the anesthesia log. Intraprocedural face to face sedation time 82min. Monitoring: Cardiac telemetry, Blood pressure, continuous pulse oxymetry. FLUROSCOPY: 0s EBL: 10cc SPECIMEN REMOVED: None PREPARATION: Preoperative antibiotics IV Ancef was administered. PROCEDURES PERFORMED: 1. Ultrasound guided vascular access for venous sheaths as documented below in procedure note. 2. Comprehensive EP study and catheter ablation for AVNRT. This includes right atrial recording and pacing, His bundle recording and right and left ventricular recording and pacing. 3. EP 3D mapping. 4. Coronary sinus recording and pacing to induce arrhythmia. 5. Induction of arrythmia with Isuprel and verification of ablation results. 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 She was recently admitted for NSTEMI with cardiac cath that revealed angiographically normal coronary arteries normal LVEF. There is an echocardiogram 09/2022 that is reflected in documentation but we are pending receiving the results. She was at cardiac rehab where there was concern for SVT event/ A-fib. she was seen by [facility] cardiology who reviewed the strips and said it is not A-fib and likely SVT/AVNRT and recommended no need for anticoagulation. She was on Ranexa for chest pain but it was determined that her symptoms were related to SVT and Ranexa was discontinued. She had event monitor that revealed likely AVNRT and another time drew non sustained AT. She has now come for EP study and ablation. The risks, benefits and alternatives of the procedure were discussed with the patient and family who agreed to proceed. Please refer to my consult note for details of the discussion and of indications. Patient was brought to the EP lab in the post absorptive state. A procedural pause was performed verifying the patient, the procedure. The right and left groins were prepped and draped in the usual sterile fashion. Preoperative antibiotics IV Ancef was administered. Ultrasound was used to image the right and left femoral veins and it was noted to be patent and this was used for vessel entry as noted below. After infiltration with 1% lidocaine, 4 venous sheaths were placed in the right. 4000U Heparin bolus was given and bolus given subsequently to target ACT above 250. Details of catheters placed as follows. RFV: 6Fx2 CRD2 to His, Quad to RV, 8Fx 2 EZ steer to CS, SL1 for Thermocool irrigated catheter. Once catheters were in position in RV, RA, CS, we decided to proceed with EP study. At baseline, AH and HV was 130ms and 47ms respectively. VEST was performed and VA conduction was noted with VA block at 600/410ms. No evidence of retrograde accessory pathway confirmed with presence of retrograde RBBB. AEST was performed from proximal CS. AEST was performed from HRA as well as coronary sinus. AH prolongation was seen at 580ms and jump was seen at 2 levels with echo beats noted. Non sustained SVT was noted with AH prolongation with TCL of 450ms that was non sustained for few beats. Atrial pacing could repeatedly induce with inability to do ventricular overdrive pacing. I then started Isuprel at 5mcg/min and on this SVT could be induced with CL of 360ms and ventricular overdrive pacing would easily terminate. Patient experienced nausea and SVT would degenerate into Afib and subsequently self terminate. This happened on a few occasions and so at this time Isuprel was stopped. 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 So at this time, I decided to pursue with ablation of slow pathway considering the diagnosis of an narrow complex tachycardia and presence of dual AV node physiology. Thermocool irrigated catheter was advanced over 8F sheath to target the inferior extension of the slow pathway. Power was titrated to 30W with irrigation. Junctionals were noted during ablation of the slow pathway potential. Subsequently AEST was repeated and showed tachyinduction. So, I performed lesions again targeting areas slightly superior and noted AH prolongation. Since tachycardia could be induced, I felt the need to target left atrial input of slow pathway. Ablation (more content not included)... [facility] 12-08-2023 Note Patient: Yari Elam dayna Procedure Information Date/Time: 12/08/23 1230 Procedures: Ablation SVT EP Study possible ablation Location: [facility] 1 EP / [facility] HV VASCULAR LAB (Cath) Providers: Solomon Neal MD Clinical information reviewed: Tobacco Allergies Med Hx Surg Hx OB Status Fam Hx Physical Exam Airway Mallampati: II TM distance: >3 FB Neck ROM: full Cardiovascular Dental Pulmonary Abdominal Anesthesia Plan ASA 2 CSE Anesthetic plan and risks discussed with patient. Use of blood products discussed with patient who. Additional Equipment Requests [facility] 10-12-2023 Note MD Cardiology - [facility] Reason for visit: SVT, possible AVNRT 10/12/[address] Neal 2 weeks ago. He started flecainide along with metoprolol for SVT. She denies any change in sx's. She will have sx's 2-3 times a day, lasts 5-10mins at most. She gets chest discomfort and sweating when she has these. Her HR has been dropping in the 40-50s. She feels dizzy/LH during these times. In aug, she broke her right foot. She is non-weight bearing, hoping to have this lifted soon. 09/28/23 30-day event monitor did reveal presence of nonsustained atrial tachycardia however no A-fib or VT was seen. There were occasional PACs and PVCs noted. 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 Discussed since unable tolerate AV nancy blocking agents we need to consider EP study and will have her see dr. Neal as previously mentioned. 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 neal HPI: Yari Daily is a 58 y.o. 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 She was recently admitted for NSTEMI with cardiac cath that revealed angiographically normal coronary arteries normal LVEF. There is an echocardiogram 09/2022 that is reflected in documentation but we are pending receiving the results. She was at cardiac rehab where there was concern for SVT event/ A-fib. 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 She was on Ranexa for chest pain but it was determined that her symptoms were related to SVT and Ranexa was discontinued. Since then she was seen by Linda YANEZ and Lopressor was increased to 25mg Q and she has felt better. Event monitor placed from 01/06/2023 to 02/05/2023 revealed presence of SVT noted on 01/14/2023 at 11:26 AM consistent with what appeared to be narrow complex tachycardia with short RP interval likely AVNRT. no A-fib or VT was seen and occasional PVCs was noted. Medications: Aspirin 81 mg, Synthroid 100 mcg, metoprolol succinate 25 mg, pravastatin 20 mg ECG 10/06/2022 normal sinus rhythm ECG 01/07/2020 normal sinus rhythm with nonspecific T wave abnormality Echocardiogram 02/12/2023 Labs 01/03/2023 BMP unremarkable BUN 11, creatinine 1.69, K4.4, GFR 102 Refer to media tab for ECG Strips from [facility] PMH: Past Medical History: Diagnosis Date Abnormal ECG AVNRT (AV nancy re-entry tachycardia) Myocardial infarction (CMS/HCC) Vasospastic angina (CMS/HCC) PSH: Past Surgical History: Procedure Laterality Date BARIATRIC SURGERY CARDIAC CATHETERIZATION HERNIA MESH REMOVAL SH: Social Determinants of Health Tobacco Use: Medium Risk (05/31/2023) Patient History Smoking Tobacco Use: Former Smokeless Tobacco Use: Never Passive Exposure: Not on file Alcohol Use: Not on file Financial Resource Strain: Not on file Food Insecurity: Not on file Transportation Needs: Not on file Physical Activity: Not on file Stress: Not on file Social Connections: Not on file Intimate Partner Violence: Unknown (08/26/2023) MD Safety & Environment Fear of Current or Ex-Partner: Not on file Emotionally Abused: Not on file Physically Abused: Not on file Sexually Abused: Not on file Physically or Sexually Abused: Not on file Depression: Not on file Housing Stability: Not on file Utilities: Not on file Allergies: Allergies Allergen Reactions Codeine Anaphylaxis Tolerated hydromorphone 03/2022 Cephalexin Hives and Other Other reaction(s): Other: See Comments Peeling of skin Peeling of skin. Has received multiple courses of piperacillin/tazobactam without noted reaction inpatient. Tramadol Other Weight: 61.2kg Visit Vitals BP 104/70 (BP Location: Left arm, Patient Position: Sitting) Pulse 72 Ht 1.6 m (5' 3 ) Wt 61.2 kg (135 lb) SpO2 96% BMI 23.91 kg/m??? Smoking Status Former BSA 1.65 m??? Meds: Current Outpatient Medications on File Prior to Visit Medication Sig Dispense Refill aspirin 81 mg chewable tablet chew and swallow 1 tablet by mouth once daily flecainide (Tambocor) 100 mg tablet Take 1 tabl (more content not included)... [facility] 10-12-2023 Note Patient here for 2 w [facility] [place] follow up SVT. She was started on flecainide and back on metoprolol at last apt by Dr. Neal. Still having episodes of racing heart beats. Doesn't feel any different with new medications. Says her BP drops sometimes to around 112/50. Review of Systems Cardiovascular: Positive for chest pain ( discomfort with palpitations ), dyspnea on exertion (intermittent), leg swelling (intermittent) and palpitations. Neurological: Positive for dizziness and light-headedness. All other systems reviewed and are negative. [facility] 10-05-2023 History of Present illness Narrative Yari presents today for a DEXA scan. She broke her right calcaneus just getting up to walk. She has seeing a specialist now. She is nonweightbearing. Her mother never fractured a bone. She did have gastric bypass surgery and has lost a tremendous amount of weight. She also has SVT and is going to need a cardiac ablation soon. documented in this encounter [employer] 09-28-2023 Note [facility] Consult Note Reason for visit: SVT, possible AVNRT 09/28/23 30-day event monitor did reveal presence of nonsustained atrial tachycardia however no A-fib or VT was seen. There were occasional PACs and PVCs noted. 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 Discussed since unable tolerate AV nancy blocking agents we need to consider EP study and will have her see dr. Nela as previously mentioned. 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 neal HPI: Yari Daily is a 58 y.o. 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 She was recently admitted for NSTEMI with cardiac cath that revealed angiographically normal coronary arteries normal LVEF. There is an echocardiogram 09/2022 that is reflected in documentation but we are pending receiving the results. She was at cardiac rehab where there was concern for SVT event/ A-fib. 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 She was on Ranexa for chest pain but it was determined that her symptoms were related to SVT and Ranexa was discontinued. Since then she was seen by Linda YANEZ and Lopressor was increased to 25mg Q and she has felt better. Event monitor placed from 01/06/2023 to 02/05/2023 revealed presence of SVT noted on 01/14/2023 at 11:26 AM consistent with what appeared to be narrow complex tachycardia with short RP interval likely AVNRT. no A-fib or VT was seen and occasional PVCs was noted. Medications: Aspirin 81 mg, Synthroid 100 mcg, metoprolol succinate 25 mg, pravastatin 20 mg ECG 10/06/2022 normal sinus rhythm ECG 01/07/2020 normal sinus rhythm with nonspecific T wave abnormality Echocardiogram 02/12/2023 Labs 01/03/2023 BMP unremarkable BUN 11, creatinine 1.69, K4.4, GFR 102 Refer to media tab for ECG Strips from [facility] PMH: Past Medical History: Diagnosis Date Abnormal ECG AVNRT (AV nancy re-entry tachycardia) Myocardial infarction (CMS/HCC) Vasospastic angina (CMS/HCC) PSH: Past Surgical History: Procedure Laterality Date BARIATRIC SURGERY CARDIAC CATHETERIZATION HERNIA MESH REMOVAL SH: Social Determinants of Health Tobacco Use: Medium Risk (05/31/2023) Patient History Smoking Tobacco Use: Former Smokeless Tobacco Use: Never Passive Exposure: Not on file Alcohol Use: Not on file Financial Resource Strain: Not on file Food Insecurity: Not on file Transportation Needs: Not on file Physical Activity: Not on file Stress: Not on file Social Connections: Not on file Intimate Partner Violence: Unknown (08/26/2023) [facility] Safety & Environment Fear of Current or Ex-Partner: Not on file Emotionally Abused: Not on file Physically Abused: Not on file Sexually Abused: Not on file Physically or Sexually Abused: Not on file Depression: Not on file Housing Stability: Not on file Utilities: Not on file Allergies: Allergies Allergen Reactions Codeine Anaphylaxis Tolerated hydromorphone 03/2022 Cephalexin Hives and Other Other reaction(s): Other: See Comments Peeling of skin Peeling of skin. Has received multiple courses of piperacillin/tazobactam without noted reaction inpatient. Tramadol Other Weight: 61.2kg Visit Vitals BP 128/79 (BP Location: Left arm, Patient Position: Sitting) Pulse 73 Ht 1.6 m (5' 3 ) Wt 61.2 kg (135 lb) SpO2 98% BMI 23.91 kg/m??? Smoking Status Former BSA 1.65 m??? Meds: Current Outpatient Medications on File Prior to Visit Medication Sig Dispense Refill aspirin 81 mg chewable tablet chew and swallow 1 tablet by mouth once daily levothyroxine (Synthroid, Levoxyl) 100 mcg tablet Take 100 mcg by mouth in the morning. oxyCODONE (Roxicodone) 5 mg immediate release tablet Take 5 mg by mouth every 6 (six) hours if needed. pravastatin (Pravachol) 20 mg tablet Take 20 mg by mouth at bedtime. No current facility-administered medications on file prior to visit. ROS: Review of Systems Cardiovascular: Positive for chest pain ( discomfort with palpitations ), dyspnea on exertion (intermittent) (more content not included)... [facility] 09-23-2023 Note [facility] 09-23-2023 Nurse Note What is the reason for your visit today? est Who is your referring physician? Abhijit Edmondson Are you having poor oral intake? NO Have you had unintentional weight loss of 15 lbs/7 Kg in the last 3-6 months? NO Bowels: regular Wound: redness and drainage clear Temperature: No Drains: No documented in this encounter [facility] 09-23-2023 History of Present illness Narrative Images from the original note were not included. [facility] Clinic Date: September 23, 2023 Yari Daily 57 year old female CHIEF COMPLAINT: Patient presents for follow up from surgery. HPI: Here for wound check after removal of infected suture and debridement of abscess cavity on abdominal wall on 06/29/[address] Crane. Patient was last seen in clinic on 08/26/2023. At that time, silver nitrate was applied to her RUQ wound and she was to continue packing it with NuGauze. Today, patient states she is doing well. Since she was last seen patient broke her right foot by standing from the couch. She is now non-weight bearing and wearing a boot on her foot. As for her wounds, her RUQ would closed up and scabbed over last week. She has not been packing it since. She states the pain there has decreased but may be because her right foot pain is more severe. Her lower midline wound with a superficial dehiscence. Patient has been keeping a Gail dressing over top. She denies drainage, erythema or fever/chills. Current Medications: Current Outpatient Medications Medication Sig Dispense Refill acetaminophen (TYLENOL) 500 mg tablet Take 2 tablets by mouth every 6 hours as needed for pain. docusate sodium (COLACE) 100 mg capsule Take 1 capsule by mouth two times a day as needed for constipation. levothyroxine (SYNTHROID) 112 mcg tablet Take 1 tablet by mouth daily at bedtime. 30 tablet 0 aspirin 81 mg chewable tablet Aspirin (Children's Aspirin) 81 mg Tablet,Chewable Active 81 MG PO Daily 90 September 18, 2022 12:00am pravastatin (PRAVACHOL) 20 mg tablet multivit-min/iron/folic acid/K (BARIATRIC MULTIVITAMINS ORAL) No current facility-administered medications for this visit. REVIEW OF SYSTEMS: CONSTITUTIONAL: Patient denies fevers, chills, sweats CARDIOVASCULAR: Patient denies chest pains, palpitations RESPIRATORY: No dyspnea on exertion, no wheezing or cough. GI: No diarrhea. No constipation. No nausea/vomiting. MUSCULOSKELETAL: No new myalgias or arthralgias. DERMATOLOGIC: Patient denies any rashes or skin changes. PHYSICAL EXAM: BP 127/76 Pulse 61 Temp 36.7 C (98.1 F) (Tympanic) Ht 160 cm (5' 3 ) Wt 61.8 kg (136 lb 4.8 oz) BMI 24.14 kg/m GENERAL: No apparent distress. Pt is alert and oriented x3. LUNGS: Lungs clear and equal. No wheezing HEART: Regular rate and rhythm without murmur. No leg edema ABDOMEN: Soft, nontender, and nondistended. Positive bowel sounds. EXTREMITIES: Without any cyanosis, clubbing, rash, lesions or edema. INCISIONS: Midline scar with superficial skin dehiscence at inferior portion of midline. Right upper quadrant wound with scab. ASSESSMENT/PLAN: 1. Encounter for postoperative wound check - ICD9: V58.49, ICD10: Z48.89 -Wounds healing great -Discontinue dry dressings - allow inferior dehiscence to dry up -Follow up in 06/[address] scan prior to appointment Abhijit Edmondson, MSN, HAND FINISHER-PRODUCTION TECHNOLOGIST September 23, 2023 documented in this encounter [facility] 08-26-2023 Note [facility] 08-26-2023 History of Present illness Narrative [facility] Clinic Date: August 26, 2023 Yari Daily 57 year old female CHIEF COMPLAINT: Patient presents for follow up from surgery. HPI: Here for wound check after removal of infected suture and debridement of abscess cavity on abdominal wall on 06/29/[address] Crane. Patient's last visit was on 08/05/2023 where her wound vac was dc'd and she was to pack both wounds with NuGauze and a dry dressing. Today, she is feeling alright. She states that about a week ago she started having more pain in her RUQ. She has been taking Tylenol but feels that it does not help her pain much. She is avoiding narcotics and other medications at this time. Patient states that her [facility] care said that her wound on her RUQ was tracking upwards several cm. She has been packing that wound with NuGauze daily and the lower wound does not need much packing since it has closed up well. She denies purulent, malodorous drainage and she denies fever/chills or erythema. Current Medications: Current Outpatient Medications Medication Sig Dispense Refill acetaminophen (TYLENOL) 500 mg tablet Take 2 tablets by mouth every 6 hours as needed for pain. docusate sodium (COLACE) 100 mg capsule Take 1 capsule by mouth two times a day as needed for constipation. levothyroxine (SYNTHROID) 112 mcg tablet Take 1 tablet by mouth daily at bedtime. 30 tablet 0 aspirin 81 mg chewable tablet Aspirin (Children's Aspirin) 81 mg Tablet,Chewable Active 81 MG PO Daily 90 90 September 18, 2022 12:00am pravastatin (PRAVACHOL) 20 mg tablet multivit-min/iron/folic acid/K (BARIATRIC MULTIVITAMINS ORAL) No current facility-administered medications for this visit. REVIEW OF SYSTEMS: CONSTITUTIONAL: Patient denies fevers, chills, sweats CARDIOVASCULAR: Patient denies chest pains, palpitations RESPIRATORY: No dyspnea on exertion, no wheezing or cough. GI: No diarrhea. No constipation. No nausea/vomiting. MUSCULOSKELETAL: No new myalgias or arthralgias. DERMATOLOGIC: Patient denies any rashes or skin changes. PHYSICAL EXAM: BP 139/75 Pulse (!) 57 Temp 36.7 C (98 F) (Tympanic) Ht 160 cm (5' 3 ) Wt 57.2 kg (126 lb) BMI 22.32 kg/m GENERAL: No apparent distress. Pt is alert and oriented x3. LUNGS: Lungs clear and equal. No wheezing HEART: Regular rate and rhythm without murmur. No leg edema ABDOMEN: Soft, nontender, and nondistended. Positive bowel sounds. EXTREMITIES: Without any cyanosis, clubbing, rash, lesions or edema. INCISIONS: Midline scar with wound opening at inferior portion about 2 cm in length, 0.5 cm in width and 0.25 depth. Right upper quadrant wound opening about 0.5 cm x 0.5 cm x 0.5 cm with tracking 0.5 cm to the 12 o'clock position. ASSESSMENT/PLAN: 1. Encounter for postoperative wound check - ICD9: V58.49, ICD10: Z48.89 -Wounds healing slowly, no s/s of infection -Silver nitrate applied to RUQ wound -Pack RUQ lightly with NuGauze and cover with dry bandage -Cover inferior midline incision with dry gauze -Follow up in 4 weeks for wound check Abhijit Edmondson, MSN, HAND FINISHER-PRODUCTION TECHNOLOGIST August 26, 2023 documented in this encounter [facility] 08-26-2023 Nurse Note What is the reason for your visit today? Follow up wound check Who is your referring physician? Delvis Are you having poor oral intake? NO Have you had unintentional weight loss of 15 lbs/7 Kg in the last 3-6 months? NO Bowels: regular Wound: drainage clear blood Temperature: No Drains: No documented in this encounter [facility] 08-25-2023 Note Patient here c/o ra cing heart beats . She is still not on metoprolol due to bradycardia s/p abdominal surgery. Gets chest discomfort with episodes of palpitations. Review of Systems Cardiovascular: Positive for chest pain ( discomfort with palpitations ), dyspnea on exertion (intermittent), leg swelling (intermittent) and palpitations. All other systems reviewed and are negative. [facility] 08-25-2023 Note [facility] Electrophysiology Consult Note Reason for visit: SVT, possible AVNRT 08/25/23: Here for follow up for SVT Has been having increased frequency of palpitations and episodes are lasting longer up to around 15-20 minutes Discussed since unable tolerate AV nancy blocking agents we need to consider EP study and will have her see dr. Neal as previously mentioned Sometimes gets jaw numbness when this rhythm sustains and then goes away when palpitations stop 05/31/23: Had open abdnominal surgery, bradycardia worsened into 40s for HR so her toporl was discontinue She has been having palpitations and near syncope since her surgery Her HR at baseline is 50bpm which is lower than her normal prior to the surgery while on BB She has had some LE edema post op and is improving ECG 05/31/23 SB 50bpm 03/02/23 dr. neal HPI: Yari Daily is a 57 y.o. 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 She was recently admitted for NSTEMI with cardiac cath that revealed angiographically normal coronary arteries normal LVEF. There is an echocardiogram 09/2022 that is reflected in documentation but we are pending receiving the results. She was at cardiac rehab where there was concern for SVT event/ A-fib. 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 She was on Ranexa for chest pain but it was determined that her symptoms were related to SVT and Ranexa was discontinued. Since then she was seen by Linda YANEZ and Lopressor was increased to 25mg Q and she has felt better. Event monitor placed from 01/06/2023 to 02/05/2023 revealed presence of SVT noted on 01/14/2023 at 11:26 AM consistent with what appeared to be narrow complex tachycardia with short RP interval likely AVNRT. no A-fib or VT was seen and occasional PVCs was noted. Medications: Aspirin 81 mg, Synthroid 100 mcg, metoprolol succinate 25 mg, pravastatin 20 mg ECG 10/06/2022 normal sinus rhythm ECG 01/07/2020 normal sinus rhythm with nonspecific T wave abnormality Echocardiogram 02/12/2023 Labs 01/03/2023 BMP unremarkable BUN 11, creatinine 1.69, K4.4, GFR 102 Refer to media tab for ECG Strips from [facility] PMH: Past Medical History: Diagnosis Date Abnormal ECG AVNRT (AV nancy re-entry tachycardia) Myocardial infarction (CMS/HCC) Vasospastic angina (CMS/HCC) PSH: Past Surgical History: Procedure Laterality Date BARIATRIC SURGERY CARDIAC CATHETERIZATION HERNIA MESH REMOVAL SH: Social Determinants of Health Tobacco Use: Medium Risk (05/31/2023) Patient History Smoking Tobacco Use: Former Smokeless Tobacco Use: Never Passive Exposure: Not on file Alcohol Use: Not on file Financial Resource Strain: Not on file Food Insecurity: Not on file Transportation Needs: Not on file Physical Activity: Not on file Stress: Not on file Social Connections: Not on file Intimate Partner Violence: Not on file Depression: Not on file Housing Stability: Not on file Utilities: Not on file Allergies: Allergies Allergen Reactions Codeine Anaphylaxis Tolerated hydromorphone 03/2022 Cephalexin Hives and Other Other reaction(s): Other: See Comments Peeling of skin Peeling of skin. Has received multiple courses of piperacillin/tazobactam without noted reaction inpatient. Tramadol Other Weight: No weight available Visit Vitals Ht 1.6 m (5' 3 ) BMI 24.62 kg/m??? Smoking Status Former BSA 1.67 m??? Meds: Current Outpatient Medications on File Prior to Visit Medication Sig Dispense Refill aspirin 81 mg chewable tablet chew and swallow 1 tablet by mouth once daily levothyroxine (Synthroid, Levoxyl) 100 mcg tablet Take 100 mcg by mouth in the morning. metoprolol succinate XL (Toprol-XL) 25 mg 24 hr tablet Take 25 mg by mouth at bedtime. oxyCODONE (Roxicodone) 5 mg immediate release tablet Take 5 mg by mouth every 6 (six) hours if needed. pravastatin (Pravachol) 20 mg tablet Take 20 mg by mouth at bedtime. No current facility-administered medications on file prior to visit. ROS: Cardio Basic Cardiovascular Symptoms: no lightheadedness, no leg edema, no syncope, no orthopnea, no PND, no claudication, Constitutional Constitutional: no fever, no night sweats, no significant weight gain, no significant weight loss, no exercise intolerance Eyes Eyes: no dry eyes, no irritation, no vision change ENMT Ears: no difficulty hearing, no ear pain Nose: no frequent nosebleeds, Mouth/Throat: no sore throat, no bleeding gums, no snoring, no dry mouth, no mouth ulcers, no oral abnormali (more content not included)... [facility] 08-06-2023 History of Present illness Narrative Images from the original note were not included. HISTORY OF PRESENT ILLNESS: EST PT Yari Daily is an 57 y.o. @ female. EST PT FLARE UP LT SHOULDER PAIN- DR BOWERS TX EMG LT UE ~1MO AGO PT RECENTLY BEING SEEN FOR ABDOMINAL WOUND FROM HERNIA REPAIR- HOME HEALTH 2/WK FOR PACKING WOUND XRAY LT SHOULDER TODAY CHANGE 08/06/23 XRAY LT SHOULDER 03/14/21 CORTISONE INJ 03/14/21 EMG LT UE [place] PT C/O PAIN AXILLARY REGION- STATES PAIN SHOOTS DOWN TO ELBOW WHEN PUTTING ON DEODERANT - DENIES N/T- GOOD ROM ALLERGIES: Allergies Allergen Reactions Cephalexin Hives and Unknown Other Reaction(s): Other: See Comments, Skin pealing, skin peeled, skin peeling Other reaction(s): Other: See Comments Peeling of skin Other Reaction(s): Skin pealing Other reaction(s): Other: See Comments Peeling of skin Peeling of skin. Has received multiple courses of piperacillin/tazobactam without noted reaction inpatient. Peeling of skin. Has received multiple courses of piperacillin/tazobactam without noted reaction inpatient. Other reaction(s): Other: See Comments Peeling of skin Peeling of skin. Has received multiple courses of piperacillin/tazobactam without noted reaction inpatient. Peeling of skin. Has received multiple courses of piperacillin/tazobactam without noted reaction inpatient. Codeine Anaphylaxis, Other and Shortness of breath Tolerated hydromorphone 03/2022 Tramadol Hallucinations Other Reaction(s): Abnormal Behavior, Mental Status Change, Other Hallucinations and nightmares Clarithromycin Iodinated Contrast Media Trimethoprim Other Reaction(s): Rash Sulfamethoxazole Rash HOME MEDICATIONS: Current Outpatient Medications Medication Instructions aspirin 81 MG chewable tablet Every 24 hours Calcium-Vitamin D-Vitamin K 500-100-40 MG-UNT-MCG chewable tablet 1 tablet levothyroxine (SYNTHROID, LEVOXYL) 100 mcg, Oral, Every morning Multiple Vitamin (Multi Vitamin) tablet Every 24 hours pravastatin (Pravachol) 20 MG tablet Every 24 hours PHYSICAL EXAM: Shoulder Musculoskeletal Exam Inspection Left Left shoulder inspection is normal. Ecchymosis: none Peripheral edema: none Atrophy: none Masses: none Palpation Left Left shoulder palpation is normal. Crepitus: no crepitus Increased warmth: none Tenderness: present (no tenderness or palpable mass in axilla.) Anterior shoulder: none Lateral arm: none Elbow: none Elbow comment: pain shoots down medial humerus to elbow with external rotation of shoulder Range of Motion Left Left shoulder range of motion is normal. Active ROM: normal. Passive ROM: normal and pain. Strength Left External rotation: 5/5. Internal rotation: 5/5. Abduction: 5/5. Biceps: 5/5. Triceps: 5/5. Neurovascular Left Radial pulse: normal and 2+ Capillary refill: <3 sec Axillary nerve sensory distribution: normal Scapula Left Left shoulder scapula is normal. Position: normal Winging: none Special Tests Left Biceps/annette Signs [place]'s test: positive Clicking/popping: positive Instability Signs Anterior apprehension test: positive General Constitutional: appears stated age Labored breathing: no Neurological: alert and oriented x3 Vitals: Body mass index is 23.91 kg/m . Tobacco Use: Medium Risk (02/22/2023) Patient History Smoking Tobacco Use: Former Smokeless Tobacco Use: Unknown Passive Exposure: Not on file Alcohol Use: Not on file IMAGING: Procedures No orders of the defined types were placed in this encounter. ASSESSMENT: ICD-10-CM 1. Acute pain of left shoulder M25.512 PLAN: Discussed symptoms, reproducible at the bedside with external rotation, positive apprehension, can not rule out labral tear, she denies injury. Symptoms are brief and intermittent. Recommend capsular strengthening exercises, x-ray discussed at bedside. Follow up in 5 weeks. Patient may take Tylenol for pain. Ice .. Pt has bands at home.. will not strain abdominals with HEP. Current sx on abd/ hernia and gastric sleeve complications. X-ray noted for calcific tendinitis, comparable to prior x-ray 2020. Symptoms more concerning for labral pathology, no pain with rotator cuff stressing. Patient will trial home exercises daily Questions answered in laymen terms at the bedside. The diagnosis, home exercise plan and any ongoing restrictions/ recommendations reviewed. If unable to be reached in office, I recommend evaluation at nearest Emergency Room if any symptoms worsened or new symptoms develop for requiring urgent evaluation. MELVIN Faye documented in this encounter [facility] 08-05-2023 Note [facility] 08-05-2023 History of Present illness Narrative [facility] Clinic Date: August 05, 2023 Yari Daily 57 year old female CHIEF COMPLAINT: Patient presents for wound check. HPI: Here for wound check after removal of infected suture and debridement of abscess cavity on abdominal wall on 06/29/[address] Crane. Patient's last visit was 07/22/2023. At that time, her wound vac was d/c'd on her RUQ wound but was to be continued on the midline wound. She was advised to pack the RUQ with NuGauze and cover with a dry dressing. Today, patient states that her wounds are healing well. She continues to pack with Nugauze daily at her RUQ without problems. She had a few technical issues with her wound vac in the past few weeks but since they changed where they placed the foam, the wound vac has been working well. She denies fever/chills. She denies purulent/malodorous drainage. She has no had erythema/warmth around the wounds. Current Medications: Current Outpatient Medications Medication Sig Dispense Refill acetaminophen (TYLENOL) 500 mg tablet Take 2 tablets by mouth every 6 hours as needed for pain. docusate sodium (COLACE) 100 mg capsule Take 1 capsule by mouth two times a day as needed for constipation. levothyroxine (SYNTHROID) 112 mcg tablet Take 1 tablet by mouth daily at bedtime. 30 tablet 0 aspirin 81 mg chewable tablet Aspirin (Children's Aspirin) 81 mg Tablet,Chewable Active 81 MG PO Daily 90 September 18, 2022 12:00am pravastatin (PRAVACHOL) 20 mg tablet multivit-min/iron/folic acid/K (BARIATRIC MULTIVITAMINS ORAL) No current facility-administered medications for this visit. REVIEW OF SYSTEMS: CONSTITUTIONAL: Patient denies fevers, chills, sweats CARDIOVASCULAR: Patient denies chest pains, palpitations RESPIRATORY: No dyspnea on exertion, no wheezing or cough. GI: No diarrhea. No constipation. No nausea/vomiting. MUSCULOSKELETAL: No new myalgias or arthralgias. DERMATOLOGIC: Patient denies any rashes or skin changes. PHYSICAL EXAM: BP 142/81 Pulse (!) 54 Temp 36.8 C (98.3 F) (Tympanic) Ht 160 cm (5' 3 ) Wt 63 kg (138 lb 12.8 oz) BMI 24.59 kg/m GENERAL: No apparent distress. Pt is alert and oriented x3. LUNGS: Lungs clear and equal. No wheezing HEART: Regular rate and rhythm without murmur. No leg edema ABDOMEN: Soft, nontender, and nondistended. Positive bowel sounds. EXTREMITIES: Without any cyanosis, clubbing, rash, lesions or edema. INCISIONS: RUQ open wound about 0.5 cm x 0.5 cm x 0.25 cm with some hypergranulation tissue around wound. Lower midline wound opening about 0.5 cm x 0.5 cm x 0.5 cm. ASSESSMENT/PLAN: 1. Encounter for postoperative wound check - ICD9: V58.49, ICD10: Z48.89 -Wounds healing appropriately -Silver nitrate applied to RUQ wound -D/C wound vac at lower midline wound -Pack both wounds with NuGauze and cover with dry dressing daily -Follow up on 08/26 at 11 AM for wound check Abhijit Edmondson, MSN, HAND FINISHER-PRODUCTION TECHNOLOGIST August 05, 2023 documented in this encounter [facility] 08-05-2023 Nurse Note What is the reason for your visit today? est Who is your referring physician? Delvis Lozano Are you having poor oral intake? NO Have you had unintentional weight loss of 15 lbs/7 Kg in the last 3-6 months? NO Bowels: regular Wound: redness and drainage clear Temperature: No Drains: No documented in this encounter [facility] 07-22-2023 Note [facility] 07-06-2023 Note MD Electrophysiology Consult Note Reason for visit: SVT, possible AVNRT 05/31/23: Had open abdnominal surgery, bradycardia worsened into 40s for HR so her toporl was discontinue She has been having palpitations and near syncope since her surgery Her HR at baseline is 50bpm which is lower than her normal prior to the surgery while on BB She has had some LE edema post op and is improving ECG 05/31/23 SB 50bpm 03/02/23 dr. neal HPI: Yari Daily is a 57 y.o. 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 She was recently admitted for NSTEMI with cardiac cath that revealed angiographically normal coronary arteries normal LVEF. There is an echocardiogram 09/2022 that is reflected in documentation but we are pending receiving the results. She was at cardiac rehab where there was concern for SVT event/ A-fib. 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 She was on Ranexa for chest pain but it was determined that her symptoms were related to SVT and Ranexa was discontinued. Since then she was seen by Linda YANEZ and Lopressor was increased to 25mg Q and she has felt better. Event monitor placed from 01/06/2023 to 02/05/2023 revealed presence of SVT noted on 01/14/2023 at 11:26 AM consistent with what appeared to be narrow complex tachycardia with short RP interval likely AVNRT. no A-fib or VT was seen and occasional PVCs was noted. Medications: Aspirin 81 mg, Synthroid 100 mcg, metoprolol succinate 25 mg, pravastatin 20 mg ECG 10/06/2022 normal sinus rhythm ECG 01/07/2020 normal sinus rhythm with nonspecific T wave abnormality Echocardiogram 02/12/2023 Labs 01/03/2023 BMP unremarkable BUN 11, creatinine 1.69, K4.4, GFR 102 Refer to media tab for ECG Strips from the medical center rehab PMH: Past Medical History: Diagnosis Date Abnormal ECG AVNRT (AV nancy re-entry tachycardia) Myocardial infarction (CMS/HCC) Vasospastic angina (CMS/HCC) PSH: Past Surgical History: Procedure Laterality Date BARIATRIC SURGERY CARDIAC CATHETERIZATION HERNIA MESH REMOVAL SH: Social Determinants of Health Tobacco Use: Medium Risk (05/31/2023) Patient History Smoking Tobacco Use: Former Smokeless Tobacco Use: Never Passive Exposure: Not on file Alcohol Use: Not on file Financial Resource Strain: Not on file Food Insecurity: Not on file Transportation Needs: Not on file Physical Activity: Not on file Stress: Not on file Social Connections: Not on file Intimate Partner Violence: Not on file Depression: Not on file Housing Stability: Not on file Allergies: Allergies Allergen Reactions Codeine Anaphylaxis Tolerated hydromorphone 03/2022 Cephalexin Hives and Other Other reaction(s): Other: See Comments Peeling of skin Peeling of skin. Has received multiple courses of piperacillin/tazobactam without noted reaction inpatient. Tramadol Other Weight: 63.1kg Visit Vitals BP 110/76 (BP Location: Left arm, Patient Position: Sitting) Pulse 76 Ht 1.6 m (5' 3 ) Wt 63 kg (139 lb) SpO2 97% BMI 24.62 kg/m??? Smoking Status Former BSA 1.67 m??? Meds: Current Outpatient Medications on File Prior to Visit Medication Sig Dispense Refill aspirin 81 mg chewable tablet chew and swallow 1 tablet by mouth once daily levothyroxine (Synthroid, Levoxyl) 100 mcg tablet Take 100 mcg by mouth in the morning. oxyCODONE (Roxicodone) 5 mg immediate release tablet Take 5 mg by mouth every 6 (six) hours if needed. pravastatin (Pravachol) 20 mg tablet Take 20 mg by mouth at bedtime. metoprolol succinate XL (Toprol-XL) 25 mg 24 hr tablet Take 25 mg by mouth at bedtime. No current facility-administered medications on file prior to visit. ROS: Cardio Basic Cardiovascular Symptoms: no lightheadedness, no leg edema, no syncope, no orthopnea, no PND, no claudication, Constitutional Constitutional: no fever, no night sweats, no significant weight gain, no significant weight loss, no exercise intolerance Eyes Eyes: no dry eyes, no irritation, no vision change ENMT Ears: no difficulty hearing, no ear pain Nose: no frequent nosebleeds, Mouth/Throat: no sore throat, no bleeding gums, no snoring, no dry mouth, no mouth ulcers, no oral abnormalities, no teeth problems Respiratory Respiratory: no cough, no wheezing, no coughing up blood, no sleep apnea Musculoskeletal Musculoskeletal: no muscle aches, no muscle weakness, joint pain+, no back pain, no swelling in the extremities Integumentary Skin no rash, no ulcer, no varicosities, no discoloration, no pruritus (more content not included)... [facility] 07-06-2023 Note [address] here for [facility] low up event monitor. Denies recurrent syncope. Review of Systems Cardiovascular: Positive for palpitations. All other systems reviewed and are negative. [facility] 07-01-2023 Note [facility] 06-30-2023 Note [facility] 06-30-2023 Note [facility] 06-29-2023 Note [facility] 06-15-2023 Miscellaneous Notes Medical clearance requested since patient is currently on halter monitor for lighheadedness. Most recent office note, EKG,ECHO, and Stress test also requested. Carleen Mistry LPN documented in this encounter [facility] 06-15-2023 Instructions Cami Donnelly APRN.PRODUCTION TECHNOLOGIST - 06/15/2023 11:18 AM EST PATIENT PREOPERATIVE INSTRUCTIONS Dr. Crane has scheduled you for your procedure at this surgery center: [facility] Scheduling Office: [phone] --[address] [place] [id number]. Please read below carefully for your personalized instructions. Arrival Time for Surgery: - To obtain your arrival time for surgery, call your physician's office the day before your surgery. - If your surgery is scheduled for Wednesday, call the Wednesday before. Your surgeon s enterprise application administrator will tell you what time to call the office. - If you have not reached the departmental enterprise application administrator by 5 P.M., call [phone] after 5 P.M. the day before your surgery. Dietary Restrictions: - No solid food after midnight. - You may have 12 ounces of clear liquids (water, clear juices such as apple juice or gatorade, carbonated beverages, clear tea, black coffee, jello) until 2 hours before scheduled arrival at facility. - Do not drink any alcohol after midnight the night before your surgery. Medications: Unless instructed differently below, stay on all of your medications until your surgery. If you start any new medications after today's visit, please contact your surgeon. Pre-Surgery Med Instructions Medication Instructions levothyroxine (SYNTHROID) 112 mcg tablet Take the day of surgery with a small sip of water aspirin 81 mg chewable tablet Stop 7 days before surgery pravastatin (PRAVACHOL) 20 mg tablet Take the day of surgery with a small sip of water multivit-min/iron/folic acid/K (BARIATRIC MULTIVITAMINS ORAL) Stop 14 days before surgery Is Patient Diabetic:No If you start any new medications after today's visit, please contact the surgeon's office. Blood Thinning Medications: - Stop NSAIDS (Ibuprofen, Advil, Aleve, Motrin, Celebrex, Mobic, etc.) 7 days before surgery, as directed by your surgeon. - Stop Aspirin 7 days before surgery, as directed by your surgeon. - Stop Vitamin E, ALL multi-vitamins, herbals and dietary supplements 14 days before surgery. - You may take Tylenol (Acetaminophen) or any of your pain medications that do not contain aspirin or NSAIDS as needed. Important Reminders: - If you use CPAP/BIPAP, bring the machine with you to the surgery center. - If you are prescribed inhalers for breathing, continue using them. -Please be sure to brush your teeth and you can use mouth wash or rinse your mouth if dry. - Candy, mints, and tobacco products are NOT permitted the morning of surgery. - Hearing aids, dentures and glasses may be worn the morning of surgery. - NO jewelry, body piercings, makeup, hairpins or contacts are to be worn the day of surgery. If you develop symptoms such as a fever, cold, or flu, or have other changes to your health within TWO DAYS of scheduled surgery or the morning of surgery, please contact the surgery center above. Personal Belongings: -Please have photo ID and insurance cards. -If you do not have a copy of advance directives on file with us, please bring a copy with you on the day of surgery. - Leave ALL valuables and money at home or with family members. For Outpatient Procedures: - YOU MUST HAVE A RESPONSIBLE DRESSING ROOM PORTER TAKE YOU HOME. A CIVIL ENGINEERING DESIGNER OR SUPPORT ASSOCIATE CANNOT BE MADE A RESPONSIBLE DRESSING ROOM PORTER. - We recommend that a responsible person stays with you overnight to take care of you. - You cannot stay in a hotel alone after outpatient surgery. You will not be permitted to have your surgery, if you do not have someone to take care of you. Please be aware that emergency situations arise, which may delay or change your surgical time. If this happens, we will notify you as soon as possible and regret any inconvenience. If you already have an Advance Directive, please fax a copy to [phone] or email to for it to be added to your chart. If you do not have an Advance Directive, you can find the appropriate form and more information at [email or web address]. We recommend that you complete the Advance Directive form found on the website and bring it with you the day of your surgery. It can be witnessed and scanned into your chart that day. Cami Donnelly APRN.MONA documented in this encounter [facility] 06-15-2023 History and physical note HISTORY AND PHYSICAL EXAMINATION SERVICE DATE: 06/15/2023 SERVICE TIME: 11:52 AM PRIMARY CARE PHYSICIAN: Holland Bowers MD, DO Assessment Patient has the following medical conditions which may affect dillan-operative course: Essential hypertension Assessment: Stable, no current rx. Follows with PCP. Last 3 Encounter BP Readings: Date: BP: 05/31/2023 127/74 05/13/2023 113/71 05/03/2023 132/78 Hyperlipidemia Assessment: Complaint on statin therapy. Encouraged lifestyle modifications. GAGE (obstructive sleep apnea) Assessment: Complaint on device. COPD (chronic obstructive pulmonary disease) ([facility]) Assessment: Follows with pcp. Improved after bariatric surgery. Denies recent exacerbations or hospitalizations. Denies use of oxygen. Recent pulmonary testing in December. Gastroesophageal reflux disease without esophagitis Assessment: Controlled on rx. Advised avoidance of triggers. Following with PCP. Hypothyroid Assessment: Compliant on levothyroxine. Denies recent dose adjustments. Following with PCP. SVT (supraventricular tachycardia) ([facility]) Assessment: Has holter monitor on currently, is to come off on 06/28. Follows cardiology, Dr. Donaldson in [place]. Reports lightheadedness, no syncope, CP, SOB. History of non-ST elevation myocardial infarction (NSTEMI) Assessment: d/t coronary vasospasms, follows cardiology. Denies stents. Alfaro Activity Status Index: METS: Climb a flight of stairs or walk up a hill (5.50 METs) DASI Score: 5.5 Patient denies any chest pain or undue shortness of breath with the above physical activity. Clinical Frailty Scale: 3. Well, with treated comorbid disease STOP-Bang Score: STOP-Bang Score: (+gage on device ) [id number] Score: Hypertension history: Yes [id number] Score: 1 ANESTHESIA FINDINGS: Intubation History: No history of difficult intubation. No abnormal airway history Significant Anesthesia Considerations: potential difficult IV/vein access Airway History: No history of difficult airway No abnormal airway history I - PHYSICAL EVALUATION AIRWAY Patient intubated: No. Tracheostomy tube not present Mallampati: III. TM distance: >3 FB. Neck ROM: full ROM without neurological symptoms. Mouth opening: adequate. Short neck: no. Thick neck: no Microretrognathia/Micronagthia/Re cessed Chin: No DENTAL Dental findings: teeth intact. II - ANESTHESIA PLAN Anesthetic plan additional comments: *PACC/TCI - anesthesia choice. Beta Feliz Monitoring Plan Post Procedure Analgesic Plan REASON FOR VISIT: Yari Daily is a 57 year old female who is scheduled for Procedure(s): EXPLORATION PENETRATING WOUND, ABDOMEN (Pending) at the request of Dr. Crane, Connie Hammer MD for consultation. My final recommendation will be communicated back to the requesting physician by way of shared medical record or letter. Subjective The patient has the following: ACTIVE PROBLEM LIST Copd (Chronic Obstructive Pulmonary Disease) (Hcc) Gage (Obstructive Sleep Apnea) Hypothyroid Edema Obesity, Class III, BMI >= 40 (morbid obesity) E66.01 Abdominal Wall Seroma Postoperative Seroma of Subcutaneous Tissue After Non-Dermatologic Procedure Arthritis Pain in Joint, Multiple Sites History of Uveitis Keratoderma Gastric Perforation (Hcc) On Total Parenteral Nutrition (Tpn) Dehydration Obesity, Class I, Bmi 30-34.9 Mild Protein-Calorie Malnutrition (Hcc) Gastric Leak Recurrent Incisional Hernia History of Non-St Elevation Myocardial Infarction (Nstemi) Former Smoker Hyperlipidemia Gastroesophageal Reflux Disease Without Esophagitis Jennifer's Disease (Hcc) Essential Hypertension History of Coronary Vasospasm Svt (Supraventricular Tachycardia) S/P Repair of Ventral Hernia Acute Postoperative Pain Abdominal Wall Fluid Collections COVID-19 Immunization Status Overdue - Covid-19 Vaccine (2022- season) Overdue since 03/05/2023 04/20/2022 Imm Admin: COVID-19 vaccine, age 12+ yr, bivalent (PFIZER-BIONTECH) 05/06/2021 Imm Admin: COVID-19 original vaccine, age 12+ yr, monovalent (PFIZER-BIONTECH - PURPLE TOP) 10/08/2020 Imm Admin: COVID-19 original vaccine, age 12+ yr, monovalent (PFIZER-BIONTECH - PURPLE TOP) Only the first 3 history entries have been loaded, but more history exists. Patient reports being fully vaccinated against COVID-19. Patient reports no prior COVID-19 infections. CHIEF COMPLAINT: pre op HPI: Patient is a 57 year old female presenting with a post op wound since January. She had a hernia repair. Currently has 2 open sites on her ABD, currently packed. +drainage, slight bleeding. Pain today is 5/10. Has tried conservative methods with little relief. Patient denies other specific radiating, alleviating, or aggravating factors. REVIEW OF SYSTEMS: General: No weight loss, malaise or fevers. Neurological: Negative for: headaches, peripheral neuropathy, seizures, TIA and strokes. Respiratory: Positive for: COPD and obstructive sleep apnea. Negative for: asthma, prior COVID-19 infection, current cough, dyspnea, home oxygen, tobacco use and URI < 2 weeks. Cardiovascular: Denies dizziness or syncope. Positive for: arrhythmia, hyperlipidemia and hypertension Negative for: AICD/PPM, anticoagulation therapy, atrial fibrillation, CAD, chest pain, CHF, DVT/PE, recent KS, murmur/valvular heart disease, open heart surgery and valve surgery. GI: See HPI. Positive for: GERD Negative for: hepatitis and liver disease. : Denies kidney disease Negative for: dysuria, frequent urination, hematuria and urinary tract infection. YACHT HAND: Negative for: vaginal bleeding. Endocrine: Positive for: hypothyroidism. Negative for: diabetes mellitus and hyperthyroidism. Hematology: Negative for: anemia, bruises/bleeds easily, factor V Leiden, hemophilia, thrombocytopenia and von Willebrand disease. Oncology: No history of CA metastasis, chemo within 30 days, or radiotherapy within 90 days. No history of oncological symptoms or problems. Psych: Negative for: anxiety, bipolar disorder and depression. Musculoskeletal: Negative for joint pain or swelling, back pain or muscle pain. Positive for: joint pain. Skin: See HPI. PAST MEDICAL HISTORY Diagnosis Date Arthritis Asthma COPD (chronic obstructive pulmonary disease) (HCC) COELLO (dyspnea on exertion) Edema Essential hypertension 12/16/2022 Family history of early CAD Former smoker 12/16/2022 Gastroesophageal reflux disease without esophagitis 12/16/2022 History of coronary vasospasm 12/16/2022 History of non-ST elevation myocardial infarction (NSTEMI) 12/16/2022 History of smoking History of transfusion Hyperlipidemia 12/16/2022 Hypothyroid Obesity Orthopnea BiPAP GAGE (obstructive sleep apnea) Jennifer's disease (HCC) 12/16/2022 SVT (supraventricular tachycardia) 12/17/2022 PAST SURGICAL HISTORY Procedure Laterality Date EGD W/O BRSH SPEC VARICIES INJ EVACUATION OF SEROMA 05/2016 HYSTERECTOMY HX 2000 LAMINECTOMY W/O FFD 1/2 VERT SEG LUMBAR MIDLINE INSERTION/CONSULT 12/15/2021 PAST SURGICAL HISTORY OF Left elbow surgery PAST SURGICAL HISTORY OF hernia - multiple PAST SURGICAL HISTORY OF c section X2 PAST SURGICAL HISTORY OF gallbladder PAST SURGICAL HISTORY OF tummy tuck REDUCTION OF LARGE BREAST TONSILLECTOMY HX as a child TUBAL LIGATION HX 03/2001 FAMILY HISTORY Problem Relation Age of Onset Diabetes Mother of COPD Ischemic Heart Disease Mother 55 Angioplasty other (Myocardial infarction) Father 35 of COPD and dementia 79 Glaucoma Maternal Aunt Anesthesia Problems No Family History Social History Tobacco Use Smoking status: Former Packs/day: 0.50 Years: 5.00 Additional pack years: 0.00 Total pack years: 2.50 Types: Cigarettes Quit date: 04/13/1998 Years since quittin.1 Smokeless tobacco: Never Vaping Use Vaping Use: Never used Substance Use Topics Alcohol use: Not Currently Comment: none in a year as of 02/2022. Drug use: No Comment: denies tx for drug/alcohol abuse in the past. Prior to Admission medications as of 06/15/23 1117 Medication Sig Last Dose Taking levothyroxine (SYNTHROID) 112 mcg tablet Take 1 tablet by mouth daily at bedtime. Taking Yes aspirin 81 mg chewable tablet Aspirin (Children's Aspirin) 81 mg Tablet,Chewable Active 81 MG PO Daily 90 90 September 18, 2022 12:00am Taking Yes pravastatin (PRAVACHOL) 20 mg tablet Taking Yes multivit-min/iron/folic acid/K (BARIATRIC MULTIVITAMINS ORAL) Taking Yes oxyCODONE IR (ROXICODONE) 5 mg immediate release tablet Take 1 tablet by mouth every 8 hours as needed for pain. acetaminophen (TYLENOL) 500 mg tablet Take 2 tablets by mouth every 6 hours as needed for pain or fever (specify temp.). Mirtazapine (REMERON) 7.5 mg tablet Take 1 tablet by mouth daily at bedtime. gabapentin (NEURONTIN) 300 mg capsule Take 1 capsule by mouth twice daily as needed for up to 28 days. tamsulosin (FLOMAX) 0.4 mg Take 1 capsule by mouth once daily for 3 days. metoprolol succinate ER (TOPROL XL) 25 mg 24 hr tablet Takes 1/2 tablet FAMOTIDINE ORAL Take by mouth. DODEX 1,000 mcg/mL inject 1 milliliter ( 1000 MCG ) intramuscularly EVERY 3 MONTHS No medication comments found. ALLERGIES Allergen Reactions Codeine Anaphylaxis Tolerated hydromorphone 03/2022 Keflex [Cephalexin] Hives, Other: See Comments Peeling of skin. Has received multiple courses of piperacillin/tazobactam without noted reaction inpatient. Tramadol Mental Status Change Hallucinations and nightmares Objective PHYSICAL EXAM: General: alert and oriented and healthy appearance. Pertinent negatives noted - not distressed. Skin: normal color, no rash or lesions. HEENT: EOM intact, pupils equal round and pupils reactive to light. Pertinent negatives noted - no carotid bruit. Cardiovascular: regular rate and rhythm, normal S1 and S2, no rub, murmurs, or gallop. Respiratory: normal breath sounds, no wheezes or crackles. No chest wall deformity or tenderness. Abdomen: bowel sounds present, soft and tender. X2 abd wounds, covered dressing intact . Extremities: no deformity, no edema or tenderness, no joint swelling or clubbing. Neurological: normal cognition and motor skills. Gait normal. No weakness or sensory deficit. PAIN ASSESSMENT: Pain Pain Level: 3 Pain Location: Abdomen Description: Aching Duration Units: Months Frequency: Continuous VITALS: BP 132/83 Pulse 55 Temp (Src) 97.8 (Temporal) Resp 16 Ht 5' 3 (1.60m) Wt 136 lb 12.8 oz (62.1kg) SpO2 98% BMI 24.24 kg/(m^2). Diagnostic tests reviewed for today's visit: Lab Value Units Date High Low HB 9.8 g/dL 05/06/2023 15.5 11.5 HCT 31.4 % 05/06/2023 46.0 36.0 WBC 3.82 k/uL 05/06/2023 11.00 3.70 PLT 179 k/uL 05/06/2023 400 150 NA 141 mmol/L 05/06/2023 144 136 K 4.1 mmol/L 05/06/2023 5.1 3.7 GLUC 172 mg/dL 05/06/2023 99 74 BUN 12 mg/dL 05/06/2023 21 7 CREAT 0.78 mg/dL 05/06/2023 0.96 0.58 PTSEC 10.6 sec 05/05/2023 13.0 9.7 INR 1.0 no uni* 05/05/2023 1.3 0.9 APTT 26.0 sec 05/05/2023 32.4 23.0 ALT 28 U/L 02/01/2023 38 7 AST 25 U/L 02/01/2023 35 13 TBILI 0.3 mg/dL 02/01/2023 1.3 0.2 TSH No results within date range. Lab Value Units Date High Low HCGQT No results within date range. UHCG No results within date range. HCG, BODY* No results within date range. Lab Value Units Date High Low ABORHD No results within date range. ABSCREEN No results within date range. Hemoglobin A1C (%) Date Value 01/06/2018 6.0 Recent Results (from the past 8760 hour(s)) ECG COMPLETE Collection Time: 01/03/23 10:08 AM Result Value Ventricular Rate 75 Atrial Rate 75 P-R Interval 134 QRS Duration 106 QT Interval 398 QTC Calculation (Bazett) 444 Calculated P Schulenburg 55 Calculated R Schulenburg -12 Calculated T Schulenburg 21 Impression NORMAL SINUS RHYTHM ANTERIOR T WAVE ABNORMALITY ABNORMAL ECG Confirmed by JOHNSON APPIAH MD ([id number]) on 01/08/2023 1:52:32 PM No results found for this or any previous visit (from the past 71959 hour(s)). Prepared for Surgery: optimally prepared for surgery, pending [see comment]. Current holtor monitor on, reaching out to cardiology for optimization, not to come off until 12.25. Pending EKG from cardiology. Labs reviewed. CONSULTS: The following consults have been initiated at this time: cardiology. Planned Anesthetic: anesthesia choice The Following Tests/Procedures Have Been Initiated: No orders of the defined types were placed in this encounter. Instructions Given to Patient: Instructions located in the after visit summary. Patient given verbal and written preop instructions and voices comprehension and compliance. SIGNATURE: Cami Donnelly APRN.CNP PATIENT NAME: Yari Daily DATE: June 15, 2023 TIME: 8:35 AM PAGER/CONTACT #: documented in this encounter [facility] 05-31-2023 Note [place] Electrophysiology Consult Note Reason for visit: SVT, possible AVNRT 05/31/23: Had open abdnominal surgery, bradycardia worsened into 40s for HR so her toporl was discontinue She has been having palpitations and near syncope since her surgery Her HR at baseline is 50bpm which is lower than her normal prior to the surgery while on BB She has had some LE edema post op and is improving ECG 05/31/23 SB 50bpm 03/02/23 dr. neal HPI: Yari Daily is a 57 y.o. 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 She was recently admitted for NSTEMI with cardiac cath that revealed angiographically normal coronary arteries normal LVEF. There is an echocardiogram 09/2022 that is reflected in documentation but we are pending receiving the results. She was at cardiac rehab where there was concern for SVT event/ A-fib. 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 She was on Ranexa for chest pain but it was determined that her symptoms were related to SVT and Ranexa was discontinued. Since then she was seen by Linda YANEZ and Lopressor was increased to 25mg Q and she has felt better. Event monitor placed from 01/06/2023 to 02/05/2023 revealed presence of SVT noted on 01/14/2023 at 11:26 AM consistent with what appeared to be narrow complex tachycardia with short RP interval likely AVNRT. no A-fib or VT was seen and occasional PVCs was noted. Medications: Aspirin 81 mg, Synthroid 100 mcg, metoprolol succinate 25 mg, pravastatin 20 mg ECG 10/06/2022 normal sinus rhythm ECG 01/07/2020 normal sinus rhythm with nonspecific T wave abnormality Echocardiogram 02/12/2023 Labs 01/03/2023 BMP unremarkable BUN 11, creatinine 1.69, K4.4, GFR 102 Refer to media tab for ECG Strips from the medical center rehab PMH: Past Medical History: Diagnosis Date Abnormal ECG AVNRT (AV nancy re-entry tachycardia) Myocardial infarction (CMS/HCC) Vasospastic angina (CMS/HCC) PSH: Past Surgical History: Procedure Laterality Date BARIATRIC SURGERY CARDIAC CATHETERIZATION HERNIA MESH REMOVAL SH: Social Determinants of Health Tobacco Use: Medium Risk (05/31/2023) Patient History Smoking Tobacco Use: Former Smokeless Tobacco Use: Never Passive Exposure: Not on file Alcohol Use: Not on file Financial Resource Strain: Not on file Food Insecurity: Not on file Transportation Needs: Not on file Physical Activity: Not on file Stress: Not on file Social Connections: Not on file Intimate Partner Violence: Not on file Depression: Not on file Housing Stability: Not on file Allergies: Allergies Allergen Reactions Codeine Anaphylaxis Tolerated hydromorphone 03/2022 Cephalexin Hives and Other Other reaction(s): Other: See Comments Peeling of skin Peeling of skin. Has received multiple courses of piperacillin/tazobactam without noted reaction inpatient. Tramadol Other Weight: 61.7kg Visit Vitals BP 134/90 (BP Location: Left arm, Patient Position: Standing) Pulse 67 Ht 1.6 m (5' 3 ) Wt 61.7 kg (136 lb) SpO2 99% BMI 24.09 kg/m??? Smoking Status Former BSA 1.66 m??? Meds: Current Outpatient Medications on File Prior to Visit Medication Sig Dispense Refill aspirin 81 mg chewable tablet chew and swallow 1 tablet by mouth once daily levothyroxine (Synthroid, Levoxyl) 100 mcg tablet Take 100 mcg by mouth in the morning. pravastatin (Pravachol) 20 mg tablet Take 20 mg by mouth at bedtime. metoprolol succinate XL (Toprol-XL) 25 mg 24 hr tablet Take 25 mg by mouth at bedtime. oxyCODONE (Roxicodone) 5 mg immediate release tablet Take 5 mg by mouth every 6 (six) hours if needed. No current facility-administered medications on file prior to visit. ROS: Cardio Basic Cardiovascular Symptoms: no lightheadedness, no leg edema, no syncope, no orthopnea, no PND, no claudication, Constitutional Constitutional: no fever, no night sweats, no significant weight gain, no significant weight loss, no exercise intolerance Eyes Eyes: no dry eyes, no irritation, no vision change ENMT Ears: no difficulty hearing, no ear pain Nose: no frequent nosebleeds, Mouth/Throat: no sore throat, no bleeding gums, no snoring, no dry mouth, no mouth ulcers, no oral abnormalities, no teeth problems Respiratory Respiratory: no cough, no wheezing, no coughing up blood, no sleep apnea Musculoskeletal Musculoskeletal: no muscle aches, no muscle weakness, joint pain+, no back pain, no swelling in the extremities Integumentary Skin no rash, no ulcer, no varicosities, no discoloration, no pruri (more content not included)... [facility] 05-31-2023 Note Patient here for fol low up [facility] for abdominal issues. She said her metoprolol was stopped due to bradycardia. C/o palpitations, lightheadedness, and near syncope. She denies chest pain and SOB. Review of Systems Cardiovascular: Positive for leg swelling, near-syncope and palpitations. Neurological: Positive for dizziness and light-headedness. All other systems reviewed and are negative. [facility] 05-31-2023 Note [facility] 05-31-2023 History and physical note [facility] - HISTORY AND PHYSICAL Service Date: May 31, 2023 Interval History: Doing alright overall. Drain output is less, <10cc per day on average, serous. Wounds still with output, changing dressings 1x/day but quite saturated 7/10 pain daily with 'knot like' sensation in LUQ and LLQ CTAP 05/20/23 IMPRESSION: Pigtail drainage catheter at ellipsoid anterior abdominal wall fluid collection with trace fluid present and small amounts of gas that are likely iatrogenic. Persistent soft tissue wounds with subcutaneous emphysema anteriorly at the right upper quadrant and below the umbilicus. Physical Exam: BP 127/74 Pulse 59 Temp (Src) 96.4 (Temporal) Resp 12 Ht 5' 3 (1.60m) Wt 140 lb (63.5kg) BMI 24.81 kg/(m^2). General: no acute distress Respiratory: CTA bilaterally, no wheezes, non-labored breathing Cardiovascular: RRR, no murmur, rubs or gallops. warm and well perfused throughout Abdomen: Soft, appropriately tender to exam, drain removal site clean and without erythema. Two wounds are open and packed. No erythema Assessment/Plan: Yari Daily is a 57 year old female s/p open TAR 12/30/22, now with retromuscular seroma s/p IR drain placement and chronic draining wounds to skin. - Drain removed today in clinic - Will schedule abdominal wound exploration - Consent obtained Patient seen and discussed with Dr. Krystle Persaud MD PGY 1 Resident Hernia Service 05/31/2023 9:42 AM documented in this encounter [facility] 05-31-2023 History of Present illness Narrative Attending Note I evaluated the patient and personally participated in the thornton components. I agree with the resident's findings and plan with the following revisions and/or additions: Doing ok, drain output has slowed to less than 10 cc per day. She still has two chronic draining sinuses, one in the RUQ from an old transverse incision, and one at the pannus, very inferior portion of the wound. I think at this point we need exploration in the OR for debridement. Consent obtained today. I removed the RM drain today given the very low out put, and it is serous in nature. Signature: Connie Crane MD Date: 05/31/2023 Time: 9:34 AM documented in this encounter [facility] 05-31-2023 Nurse Note What is the reason for your visit today? Follow up Who is your referring physician? Dr. Crane Are you having poor oral intake? NO Have you had unintentional weight loss of 15 lbs/7 Kg in the last 3-6 months? NO Bowels: regular Wound: clean & dry Temperature: No Drains: No documented in this encounter [facility] 05-20-2023 Miscellaneous Notes Radiology Service Progress Note PATIENT NAME: Yari Daily DATE OF SERVICE: May 20, 2023 TIME: 9:37 AM PATIENT IDENTITY VERIFICATION COMPLETED USING TWO (2) IDENTIFIERS: Name and Date of confirmed by patient verbally and Name and Date of confirmed by identification band. FALL SCREENING: Has the patient had 2 falls in the last year or 1 fall with injury or currently using an Ambulatory Assistive Device (Walker, Cane, Wheelchair, Crutches, etc.)? No PATIENT GENDER DATA: Female. status: : No status: NO. PATIENT RELEVANT IMPLANT DATA REVIEWED: Not Applicable RADIOLOGY DEPARTMENT: CT; Exam(s) Completed: Abdomen/Pelvis PERIPHERAL IV DATA: Not applicable SIGNED BY: PAZ Cross May 20, 2023 9:37 AM documented in this encounter [facility] 05-13-2023 Note [facility] 05-13-2023 History of Present illness Narrative General Surgery Clinic Note Service Date: May 13, 2023 Interval History: Doing ok. No fevers or chills. Drain output is 50 ml per day and serous. Coming down from 75. Wounds also drying up. Physical Exam: BP 113/71 Pulse 51 Temp (Src) 96.8 (Temporal) Resp 12 Ht 5' 3 (1.60m) Wt 144 lb (65.3kg) BMI 25.51 kg/(m^2). General: no acute distress Respiratory: non-labored breathing Cardiovascular: warm and well perfused throughout Abdomen: Soft, appropriately tender to exam, drain is serous in nature. Two wounds are open and packed. No erythema Assessment/Plan: Yari Daily is a 57 year old female s/p open TAR, now with retromuscular seroma, chronic draining wounds to skin. - Cont drain for now, applied silver nitrate to wounds, repacked wounds. - will get CT scan next week and call with results. Likely keep drain for another couple weeks - Follow-up via phone after CT is done documented in this encounter [facility] 05-13-2023 Miscellaneous Notes PATIENT INFORMATION Record ID: [id number] Patient Name: Yari Daily Hospital: [facility] [place] [facility] Attending: Connie Crane Center: General Surgery INSTRUCTIONS SN to remind patient of appointment date, time, location Transfer to Controller Instructor Nurse Cook [facility] Technician Surgery - [phone] at end of call All Clear SURVEY INFORMATION Medical/Nurse Controller Instructor: Diana Lara 1. Your discharge instructions are important in guiding you through the recovery process. Is there anything I could help you clarify on your discharge instructions? (Standard Question) No, All clear 2. Do you have a follow up appointment related to your hospital stay scheduled within the next 30 days? (Standard Question) Yes 3. Do you have any of the following new symptoms related to your wound?; Creamy white or foul smelling drainage Increasing redness or swelling, Increasing pain (Red Flag Question) Yes, I have concerns MA/ Notes: actually in the doctors office at the moment for f/u appointment, she will tell them about her pain 4. Are you tolerating your pain with your current medication? (Red Flag Question) Yes, I can tolerate my pain 5. Many patients have concerns about their medications once they are home. Do you have any questions about getting or taking your medications? (Standard Question) No 6. Do you have any new or different symptoms? (Standard Question) No documented in this encounter [facility] 05-13-2023 Nurse Note What is the reason for your visit today? Post op Who is your referring physician? Dr. Crane Are you having poor oral intake? NO Have you had unintentional weight loss of 15 lbs/7 Kg in the last 3-6 months? NO Bowels: regular Wound: clean & dry Temperature: No Drains: Yes documented in this encounter [facility] 05-06-2023 Note [facility] 05-05-2023 Note [facility] 05-05-2023 Note [facility] 05-04-2023 Note [facility] 05-04-2023 Note [facility] 05-04-2023 Miscellaneous Notes Yes, sadly she'll have to reschedule until the mesh infection is resolved. I know its been very frustrating for her. documented in this encounter [facility] 05-04-2023 Note [facility] 05-03-2023 Note [facility] 05-03-2023 Note [facility] 05-03-2023 History of Present illness Narrative Yari Daily is a 57 year old female who presents with a post op wound infection after open TAR with Prolene. She has a deep SSI. Will need admission, and plan for IR drain placement into RM space. Hopefully can avoid mesh excision, but may require in the future if not controlled with drain. I have seen and evaluated the patient and discussed the case with the resident physician. I agree with the assessment and plan as documented in the resident s note including a ROS that was reviewed and negative other than what was indicated in our notes. OUTPATIENT CLINIC PROGRESS NOTE Interval HPI: Here for a wound check after bilateral TAR, explantation of previous mesh x3, open incisional hernia repair with implantation of 42 x 42 cm Ethicon Prolene polypropylene mesh on 12/30/[address] Crane. Patient was last seen in clinic on 04/13/23. At that time, was to continue her wound care and continue on bactrim BID for an additional 7 days. Wound culture from 04/06 grew Staph Aureus sensitive to bactrim. She continued her course without concern. For the past few days the patient has noticed that her wounds have continued to drain and have become foul smelling. She noticed a new area of erythema which has has some leakage but not had grady drainage yet. She denies any fevers, chills, nausea or vomiting at this time. She underwent CT per the request of wound care which showed persistent draining sinuses as well as retromuscular collection. 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 SVT (supraventricular tachycardia) 12/17/2022 PAST SURGICAL HISTORY: PAST SURGICAL HISTORY Procedure Laterality Date EGD W/O BRSH SPEC VARICIES INJ EVACUATION OF SEROMA 05/2016 HYSTERECTOMY HX 1999 LAMINECTOMY W/O FFD 1/2 VERT SEG LUMBAR MIDLINE INSERTION/CONSULT 12/15/2021 PAST SURGICAL HISTORY OF Left elbow surgery PAST SURGICAL HISTORY OF hernia - multiple PAST SURGICAL HISTORY OF c section X2 PAST SURGICAL HISTORY OF gallbladder PAST SURGICAL HISTORY OF tummy tuck REDUCTION OF LARGE BREAST TONSILLECTOMY HX as a child TUBAL LIGATION HX 03/2001 FAMILY HISTORY: FAMILY HISTORY Problem Relation Age of Onset Diabetes Mother of COPD Ischemic Heart Disease Mother 55 Angioplasty other (Myocardial infarction) Father 35 of COPD and dementia 79 Glaucoma Maternal Aunt Anesthesia Problems No Family History SOCIAL HISTORY: Social History Tobacco Use Smoking status: Former Packs/day: 0.50 Years: 5.00 Additional pack years: 0.00 Total pack years: 2.50 Types: Cigarettes Quit date: 04/13/1998 Years since quittin.0 Smokeless tobacco: Never Substance Use Topics Alcohol use: Not Currently Comment: none in a year as of 02/2022. Drug use: No Comment: denies tx for drug/alcohol abuse in the past. MEDICATIONS: Prior to Admission Medications: Mirtazapine (REMERON) 7.5 mg tablet Take 1 tablet by mouth daily at bedtime. oxyCODONE IR (ROXICODONE) 5 mg immediate release tablet Take 1 tablet by mouth every 6 hours as needed for pain. gabapentin (NEURONTIN) 300 mg capsule Take 1 capsule by mouth twice daily as needed for up to 28 days. tamsulosin (FLOMAX) 0.4 mg Take 1 capsule by mouth once daily for 3 days. metoprolol succinate ER (TOPROL XL) 25 mg 24 hr tablet Takes 1/2 tablet aspirin 81 mg chewable tablet Aspirin (Children's Aspirin) 81 mg Tablet,Chewable Active 81 MG PO Daily 90 90 September 18, 2022 12:00am pravastatin (PRAVACHOL) 20 mg tablet multivit-min/iron/folic acid/K (BARIATRIC MULTIVITAMINS ORAL) FAMOTIDINE ORAL Take by mouth. DODEX 1,000 mcg/mL inject 1 milliliter ( 1000 MCG ) intramuscularly EVERY 3 MONTHS No current facility-administered medications for this visit. ALLERGIES: ALLERGIES Allergen Reactions Codeine Anaphylaxis Tolerated hydromorphone 03/2022 Keflex [Cephalexin] Hives, Other: See Comments Peeling of skin. Has received multiple courses of piperacillin/tazobactam without noted reaction inpatient. Tramadol Intolerance Exam: BP 105/65 Pulse (!) 55 Temp 36.9 C (98.4 F) (Temporal) Ht 160 cm (5' 3 ) Wt 62.1 kg (137 lb) SpO2 100% BMI 24.27 kg/m Body mass index is 24.27 kg/m . General Appearance: Well appearing, alert, in no acute distress, well-hydrated, well nourished. Skin: Abdominal skin with 2 notable drainage sites with purulence and odor. Packed last night. Patient has notable area of slight erythema and induration which she mentions is new. Respiratory: Unlabored on room air Heart: Extremities well perfused Abdomen: Normal abdominal exam, Abdomen soft, non-tender. Bowel sounds normal. No masses, organomegaly, See skin exam above. ASSESSMENT AND PLAN: Ms. Daily 57 y/o female s/p bilateral TAR, explantation of previous mesh x3, open incisional hernia repair with implantation of 42 x 42 cm Ethicon Prolene polypropylene mesh on 12/30/[address] Crane now with chronic draining wounds. Given the concern of persistent drainage and fluid collection seen on CT will have patient be admitted for image guided percutaneous drainage and abx therapy. Discussed with patient and regarding the natural progression of this collection and possible need for eventual mesh removal but will opt for conservative management with drainage at this time. Patient agreed with plan and all questions were answered at this time. Discussed with the patient to present to ED if not called regarding bed availability. She states she Plan: - Admit for percutaneous image guided fluid drainage - Will plan for fluid studies once collection is drained The patient expressed full understanding and agreement with the plan. SIGNATURE: Jerrod Omalley MD DATE: May 03, 2023 TIME: 10:57 AM documented in this encounter [facility] 05-03-2023 Nurse Note What is the reason for your visit today? Est Who is your referring physician? Dr. Crane Are you having poor oral intake? NO Have you had unintentional weight loss of 15 lbs/7 Kg in the last 3-6 months? NO Bowels: regular Wound: DRAINAGE red/clear Temperature: No Drains: No documented in this encounter [facility] 04-29-2023 Miscellaneous Notes Tried to reach patient via telephone for pre-procedure guidelines regarding spine injection with Dr. Bartlett on 05/07/2023, patient unable to talk on phone at this time. Left office number on voicemail. Zoomoramat message sent with pre-procedure guidelines for injection. documented in this encounter [facility] 04-15-2023 Miscellaneous Notes Tried to reach patient via telephone for pre-procedure guidelines regarding spine injection with Dr. Bartlett on 04/23/2023, patient unable to talk on phone at this time. Left office number on voicemail. Zoomoramat message sent with pre-procedure guidelines for injection. documented in this encounter [facility] 04-13-2023 Note [facility] 04-13-2023 History of Present illness Narrative [facility] Clinic Date: April 13, 2023 Yari Daily 57 year old female CHIEF COMPLAINT: Patient presents for a wound check. HPI: Here for wound check after bilateral TAR, explantation of previous mesh x3, open incisional hernia repair with implantation of 42 x 42 cm Ethicon Prolene polypropylene mesh on 12/30/[address]ane.. Patient was last seen in clinic on 04/06/2023. At that time she had an I&D done of an abscess to the right of her midline. Wound was cultured and patient was started on Bactrim BID for 10 days. Patient states that she went home on the night of 04/06 and patient states that a large amount of fluid was released. Today, patient states that she still is having moderate drainage from her old gallbladder site wound and the wound at the inferior portion of her midline. Color of drainage is serosanguinous with some fibrinous tissue. It is not malodorous and her erythema has decreased at the wound to the right of her midline. Patient denies fever/chills. She has been packing her inferior wound with 1/2 inch Nu Gauze and the site to the right of her midline with Kerlix and Saline. Patient at this time would like to follow up with the wound clinic near her home, [place], to prevent as many trips up to [place]. Current Medications: Current Outpatient Medications Medication Sig Dispense Refill aspirin 81 mg chewable tablet Aspirin (Children's Aspirin) 81 mg Tablet,Chewable Active 81 MG PO Daily 90 September 18, 2022 12:00am DODEX 1,000 mcg/mL inject 1 milliliter ( 1000 MCG ) intramuscularly EVERY 3 MONTHS 1 mL 2 FAMOTIDINE ORAL Take by mouth. gabapentin (NEURONTIN) 300 mg capsule Take 1 capsule by mouth twice daily as needed for up to 28 days. 56 capsule 0 metoprolol succinate ER (TOPROL XL) 25 mg 24 hr tablet Takes 1/2 tablet Mirtazapine (REMERON) 7.5 mg tablet Take 1 tablet by mouth daily at bedtime. 30 tablet 0 multivit-min/iron/folic acid/K (BARIATRIC MULTIVITAMINS ORAL) oxyCODONE IR (ROXICODONE) 5 mg immediate release tablet Take 1 tablet by mouth every 6 hours as needed for pain. 20 tablet 0 pravastatin (PRAVACHOL) 20 mg tablet sulfamethoxazole-trimethoprim (BACTRIM DS) 800-160 mg per tablet Take 1 tablet by mouth two times a day for 7 days. 14 tablet 0 tamsulosin (FLOMAX) 0.4 mg Take 1 capsule by mouth once daily for 3 days. 3 capsule 0 No current facility-administered medications for this visit. REVIEW OF SYSTEMS: CONSTITUTIONAL: Patient denies fevers, chills, sweats CARDIOVASCULAR: Patient denies chest pains, palpitations RESPIRATORY: No dyspnea on exertion, no wheezing or cough. GI: No diarrhea. No constipation. No nausea/vomiting. MUSCULOSKELETAL: No new myalgias or arthralgias. DERMATOLOGIC: Patient denies any rashes or skin changes. PHYSICAL EXAM: BP 104/68 Pulse (!) 56 Temp 37.1 C (98.7 F) (Temporal) Ht 160 cm (5' 3 ) Wt 64.1 kg (141 lb 6.4 oz) BMI 25.05 kg/m GENERAL: No apparent distress. Pt is alert and oriented x3. LUNGS: Lungs clear and equal. No wheezing HEART: Regular rate and rhythm without murmur. No leg edema ABDOMEN: Soft, nontender, and nondistended. Positive bowel sounds. EXTREMITIES: Without any cyanosis, clubbing, rash, lesions or edema. INCISIONS: Midline incision with wound at inferior aspect, about 2.75 cm deep. Wound to the right of the upper midline about 2.5 cm in length and 2 cm deep with tracking about 4 cm towards the midline. ASSESSMENT/PLAN: 1. Infection in abdomen (HCC) - ICD9: 567.9, ICD10: K65.9 -Continue packing her inferior wound with Nu Gauze and right of midline wound with WTD dressings (Kerlix and saline) - Continue SULFAMETHOXAZOLE 800 MG-TRIMETHOPRIM 160 MG TABLET BID for additional 7 days - NON-[facility] - Follow up with [facility] for wound care - Will continue to follow up PRN for wound checks and concerns I spent a total of 27 minutes on the date of the service which included preparing to see the patient, [id number] patient care, completing clinical documentation, obtaining and/or reviewing separately obtained history, performing a medically appropriate examination, counseling and educating the patient/family/caregiver, and ordering medications, tests, or procedures. Abhijit Edmondson, MSN, HAND FINISHER-PRODUCTION TECHNOLOGIST April 13, 2023 documented in this encounter [facility] 04-13-2023 Nurse Note What is the reason for your visit today? Est. Patient Who is your referring physician? Dr. Crane Are you having poor oral intake? NO Have you had unintentional weight loss of 15 lbs/7 Kg in the last 3-6 months? NO Bowels: regular Wound: warmth, redness, and drainage Serosanguenous Temperature: No Drains: No documented in this encounter [facility] 04-06-2023 Note [facility] 03-18-2023 Note [facility] 03-18-2023 Note [facility] 03-18-2023 History of Present illness Narrative [facility] March 18, 2023 SUBJECTIVE: Yari Daily presents to for a follow-up appointment for abdominal pain in R groin and L hypogastric region. Since the last visit, Yari Daily states the pain has been since January 12 of this year and is always present rates it as a 7/10 describes as a stabbing pain. CT imaging showed no active intraabdominal process. Nothing has improved the pain pt has tried medications and PT. Pain is not elicited by palpation and is not effected by BM or passing gas. Denies N/V. PDMP website checked and validated. All prescriptions have been APPROPRIATELY filled. No suspicious activity was identified. 03/18/2023 by Leonard Hernandez, DO Current Outpatient Medications Medication Sig Dispense Refill Mirtazapine (REMERON) 7.5 mg tablet Take 1 tablet by mouth daily at bedtime. 30 tablet 0 methocarbamol (ROBAXIN) 750 mg tablet Take 1 tablet by mouth three times daily. 90 tablet 0 oxyCODONE IR (ROXICODONE) 5 mg immediate release tablet Take 1 tablet by mouth every 6 hours as needed for pain. 20 tablet 0 metoprolol succinate ER (TOPROL XL) 25 mg 24 hr tablet Takes 1/2 tablet aspirin 81 mg chewable tablet Aspirin (Children's Aspirin) 81 mg Tablet,Chewable Active 81 MG PO Daily 90 September 18, 2022 12:00am pravastatin (PRAVACHOL) 20 mg tablet multivit-min/iron/folic acid/K (BARIATRIC MULTIVITAMINS ORAL) FAMOTIDINE ORAL Take by mouth. DODEX 1,000 mcg/mL inject 1 milliliter ( 1000 MCG ) intramuscularly EVERY 3 MONTHS 1 mL 2 gabapentin (NEURONTIN) 300 mg capsule Take 1 capsule by mouth twice daily as needed for up to 28 days. 56 capsule 0 tamsulosin (FLOMAX) 0.4 mg Take 1 capsule by mouth once daily for 3 days. 3 capsule 0 No current facility-administered medications for this visit. REVIEW OF SYSTEMS: REVIEW OF SYSTEMS PAIN ASSESSMENT: CURRENTLY HAVING PAIN; see HPI GENERAL: No weight loss, malaise or fevers RESPIRATORY: Negative for cough, hemoptysis, wheezing, COPD, dyspnea or shortness of breath CARDIOVASCULAR: Negative for chest pain, leg swelling, hypertension, CHF or palpitations GI: No nausea, vomiting, or diarrhea Past Medical History: 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 SVT (supraventricular tachycardia) ([facility]) 12/17/2022 Past Surgical History: PAST SURGICAL HISTORY Procedure Laterality Date EGD W/O BRSH SPEC VARICIES INJ EVACUATION OF SEROMA 05/2016 HYSTERECTOMY HX 1999 LAMINECTOMY W/O FFD / VERT SEG LUMBAR MIDLINE INSERTION/CONSULT 12/15/2021 PAST SURGICAL HISTORY OF Left elbow surgery PAST SURGICAL HISTORY OF hernia - multiple PAST SURGICAL HISTORY OF c section X2 PAST SURGICAL HISTORY OF gallbladder PAST SURGICAL HISTORY OF tummy tuck REDUCTION OF LARGE BREAST TONSILLECTOMY HX as a child TUBAL LIGATION HX 03/2001 Family History: FAMILY HISTORY Problem Relation Age of Onset Diabetes Mother of COPD Ischemic Heart Disease Mother 55 Angioplasty other (Myocardial infarction) Father 35 of COPD and dementia 79 Glaucoma Maternal Aunt Anesthesia Problems No Family History Social History: Social History Tobacco Use Smoking status: Former Packs/day: 0.50 Years: 5.00 Additional pack years: 0.00 Total pack years: 2.50 Types: Cigarettes Quit date: 04/13/1998 Years since quittin.9 Smokeless tobacco: Never Substance Use Topics Alcohol use: Not Currently Comment: none in a year as of 02/2022. Drug use: No Comment: denies tx for drug/alcohol abuse in the past. OBJECTIVE: BP 105/71 Pulse 67 Ht 5' 3 (1.60m) Wt 135 lb (61.2kg) SpO2 98% BMI 23.92 kg/(m^2). PHYSICAL EXAMINATION: GENERAL APPEARANCE: Well appearing, well-hydrated, well nourished and alert LUNGS: even and non-labored breathing, normal chest excursion HEART: Regular rate and rhythym MUSCULOSKELETAL: Spine range of motion normal. Muscular strength intact. ABDOMEN: bilateral abdominal wall pain, left and right side ASSESSMENT: Lower abdominal pain S/p ventral hernia repair PLAN: 1) TAP block 2) Counseled on ideal diet, exercise, and sleep. Leonard Hernandez DO [facility] STAFF PHYSICIAN NOTE OF PERSONAL INVOLVEMENT IN CARE IMPRESSION: Abdominal wall pain PLAN: TAP block bilaterally with ultrasound I have reviewed the documentation above obtained and documented by the Resident and I have personally performed a face to face assessment of the patient and have personally participated in the thornton components of the visit which includes medical decision making. and have reviewed and updated the problem list as appropriate. I have personally performed a face to face assessment of the patient and I have discussed the case and management of the patient's care. 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 She was referred by Abhijit Edmondson [facility] [address] Consultation requested by Dr. Edmondson for an opinion regarding Ms. Yari Daily, and my final recommendations will be communicated back to the requesting physician by way of shared medical record or letter via [place] mail. PDMP website checked and validated. All prescriptions have been APPROPRIATELY filled. No suspicious activity was identified. 03/11/2023 by Zuly Montgomery PA-C Chief complaint: abdominal pain SUBJECTIVE: Patient presents with complaints of abdominal pain that started after hernia surgery. Patient had hernia surgery on 12/30/22 - a large mesh was placed. Incision opened back up on 01/11/23. Second incision opened back up on 01/25/23. Wound healing from inside out. Hx of sleeve gastrectomy 2020 converted to dg-en-Y bypass 2021 f/b exp laparotomy, washout and drain placement x2 for gastric leak, and incisional hernia s/p open bilateral TAR on 12/30/2022. Reports pain in 2 specific spots in her lower abdomen - one on the right and one on the left. Stabbing pain. Can push on her abdomen without eliciting pain. Denies any numbness or tingling. Denies any rashes. Pain severity is 7/10 - constant Pain is worse with laying on her side, bending, changing position when sleeping. Food does not affect the pain. BM or gas does not affect the pain. Denies any new bowel or bladder dysfunctions Nothing improves the pain. Interventions - physical therapy, heat and ice Medications - motrin, opioids, gabapentin - did not work Denies any hx of spine surgery/injections PMH - hypothyroid, SVT/AVNRT, Jennifer's disease, hx of asthma/COPD - resolved, hx of HTN, hx of obesity, hx of GAGE - resolved, hx of fibromyalgia Spine Red Flag Yari Daily has no red flag symptoms. Anesthesia: denies Schizophrenia: denies : hysterectomy CHF: denies Uncontrolled HTN: denies Recent KS: NSTEMI with cardiac cath September 2022 Arrythmias: SVT Afib: denies Hyperthyroid: denies Aortic Stenosis: denies Liver Failure: denies Increased ICP: denies Average pain over the last 7 days: 7/10 Previous pain treatments: physical therapy, medications, surgery Functional Limitations: The patient's work is unimpaired. Time spent reclining is 50 percent of hours/day (includes time in bed, recliner, sofa, ottoman, etc.). Wellness: How would you describe your diet: eating 1200 calories and 80 g of protein - graze. Drinking ice tea, juice, cream How many days a week do you exercise: walking How many hours do you sleep a night: going to bed around 1 am - getting up around 8 am. Emotional Symptoms: include sadness, depression, anxiety, frustration, and irritability The patient has loss of interest and energy The patient denies suicidal ideation. Non-medical stresses: Include relationship conflicts and medical problems Family involvement: is appropriate/helpful and supportive Financial Status: working Allergies: Reviewed in the EMR Current Medications: Reviewed in the EMR 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 SVT (supraventricular tachycardia) ([facility]) 12/17/2022 PAST SURGICAL HISTORY Procedure Laterality Date EGD W/O BRSH SPEC VARICIES INJ EVACUATION OF SEROMA 05/2016 HYSTERECTOMY HX 1999 LAMINECTOMY W/O FFD 1/2 VERT SEG LUMBAR MIDLINE INSERTION/CONSULT 12/15/2021 PAST SURGICAL HISTORY OF Left elbow surgery PAST SURGICAL HISTORY OF hernia - multiple PAST SURGICAL HISTORY OF c section X2 PAST SURGICAL HISTORY OF gallbladder PAST SURGICAL HISTORY OF tummy tuck REDUCTION OF LARGE BREAST TONSILLECTOMY HX as a child TUBAL LIGATION HX 03/2001 Psychiatric History: denies Social History Tobacco Use Smoking status: Former Packs/day: 0.50 Years: 5.00 Additional pack years: 0.00 Total pack years: 2.50 Types: Cigarettes Quit date: 04/13/1998 Years since quittin.9 Smokeless tobacco: Never Substance Use Topics Alcohol use: Not Currently Comment: none in a year as of 02/2022. Drug use: No Comment: denies tx for drug/alcohol abuse in the past. Substance use: She has not used tobacco since 1996. [email or web address] current and past significant alcohol use Drug use: There is no history of recreational substance use. . Family History FAMILY HISTORY Problem Relation Age of Onset Diabetes Mother of COPD Ischemic Heart Disease Mother 55 Angioplasty other (Myocardial infarction) Father 35 of COPD and dementia 79 Glaucoma Maternal Aunt Anesthesia Problems No Family History ROS was positive for: Fatigue Abdominal pain All of the other systems reviewed were negative. OBJECTIVE: PHYSICAL EXAM: GENERAL APPEARANCE: Well appearing, well-hydrated, well nourished and alert SKIN: Head, neck, trunk, and extremities dry, intact and without lesions NECK: negative findings BACK: motor and sensory appear to be normal LUNGS: even and non-labored breathing, normal chest excursion HEART: Edema: No MUSCULOSKELETAL: Spine range of motion normal. Muscular strength intact. NEURO/PSYCH: cranial nerves 2-12 intact, speech normal, mental status intact Normal gait IMAGING: CT abd/pel 02/01/23 - Post surgical changes of an anterior abdominal wall hernia repair with wound dehiscence and deep enhancement either representing granulation tissue or developing abscesses. Nonobstructive right nephrolith. XR abdomen 01/03/23 - Surgical drains extend from the RIGHT and LEFT side into the pelvis. There is a moderate colonic stool burden in the dilated small bowel loop in the LEFT mid abdomen. Findings could either be due to localized ileus or distal bowel obstruction. Multiple bowel anastomotic sutures in the RIGHT upper quadrant. Several surgical clips in the upper abdomen. ASSESSMENT: S/p repair of ventral hernia Lower abdominal pain Patient is a 57 year old female who presents with abdominal pain post surgery in the end of December. Has tried medications and PT. Discussed possible abdominal nerve block - will refer to Dr Bartlett. Discussed the importance of optimizing diet, exercise and sleep. Eat 3 healthy meals each day, during the day, minimize snacking and sugar. Drink plenty of fluids. Do some kind of physical activity for 20-30 mins each day. Discussed good sleep hygiene and the importance of sleeping on a schedule. PLAN: Further evaluation: referral to Dr Bartlett Nutrition: continue to optimize Therapies: continue HEP and PT Sleep: work to optimize Medications: start Remeron 7.5 mg q hs Start Robaxin 750 mg tid prn Interventions: consideration - abdominal nerve block Infusions: none 8. Pain Psychology: none Review, Ask, Review: yes Follow-up: in 4 weeks for medication management Zuly Montgomery PA-C I spent a total of 60 minutes on the date of the service which included preparing to see the patient, [id number] patient care, completing clinical documentation, obtaining and/or reviewing separately obtained history, performing a medically appropriate examination, counseling and educating the patient/family/caregiver, and ordering medications, tests, or procedures. Important Patient Information: 1. To schedule Pain Recovery appointments or post-injection office visits, please call: [phone] 2. The nursing staff and medical assistants are an integral part of your pain recovery team and will be handling your phone calls and inquiries. 3. Your study results and treatment plan will be discussed during a follow-up appointment. If you do not have a follow-up appointment and wish to discuss any issues directly with me, please call: [phone] to set-up an appointment. 4. MyChart is best used for refill requests or yes or no questions. Anything more complicated will likely require a follow-up appointment that you can schedule by [phone]. 5. It is the practice of the Department to not fill disability or any other insurance-related forms/documentation. All of the office notes, study results, and other documentation as part of your evaluation will be available to you and to your Primary Care Physician (PCP). Use of this material to complete such forms will be at the discretion of your PCP/referring physician. 6. If you are scheduled for a ketamine infusion, you will be contacted regarding specific scheduling instructions in the future by our department. There is no need to contact our department regarding the scheduling process or your estimated wait; you will be contacted once there is an opening. documented in this encounter [facility] 02-25-2023 Note [facility] 02-25-2023 Note [facility] 02-25-2023 Note [facility] 02-25-2023 History of Present illness Narrative Attending Note I evaluated the patient and personally participated in the thornton components. I agree with the resident's findings and plan with the following revisions and/or additions: Opened up a small area of concern in the lower part of the incision. Got out some murky seroma fluid. Not grossly infected. Packed wound. Applied silver nitrate to other wounds. Those are healing well, almost done. Will have her RTC in one month. Still having bilateral flank pains, left greater than right. Seeing pain management next week for injections Signature: Connie Crane MD Date: 02/25/2023 Time: 3:25 PM PROCEDURE NOTE: INCISION AND DRAINAGE The risks, benefits, alternatives, and personnel discussed with patient or medical field representative who consents to the procedure. The area to I&D was identified at the lower aspect of the incision. Anesthesia was obtained with 5 cc's of Lidocaine 1%. The area was prepped with betadine. A number 11 scalpel was used to create a 1 cm vertical incision. Return was 2 cc's of serosanguinous fluid. The site was then deloculated. Then it was packed with Nugauze. A dressing was placed over the site. The patient tolerated the procedure well. Charla Lipscomb MD PGY4 General Surgery Resident [id number] General Surgery Clinic Note Service Date: February 25, 2023 Interval History: Yari Daily is a 57 year old female with PMHx of Asthma, COPD, hypothyroid, sleeve gastrectomy c/w leak requiring EJ.Subsequent incisional hernia s/p open bilateral TAR on 12/30/2022. Continues to report pain in the LUQ and RLQ. Started PT this week. Plans to see chronic pain next week. 2x open areas in her incision are healing well. Complains of painful nodular area with some redness at the bottom of her incision. No fever or chills. No drainage. Physical Exam: BP 120/77 Pulse 68 Temp (Src) 97.6 (Temporal) Ht 5' 3 (1.60m) Wt 132 lb (59.9kg) SpO2 100% BMI 23.39 kg/(m^2). GENERAL: awake; alert and oriented; no acute distress LUNGS: non-labored breathing on RA CARDIAC: warm and well perfused throughout ABDOMEN: soft, non tender, non distended, midline incision healing. 2x areas with granulation tissue mid upper and umbilical. Erythema, swelling and fluctuance at the bottom of the incision NEURO: no gross focal neurologic deficits EXT: no lower extremity edema Assessment/Plan: Yari Daily is a 57 year old female with hx of sleeve gastrectomy c/w leak requiring EJ reconstruction with RY. Incisional hernia s/p open bilateral TAR on 12/30/2022. - silver nitrate applied to granulation tissue at 2x open areas mid upper incision an umbilical, I&D performed of small seroma at the lower end of the incision -Pack I&d site with 1/2 inch packing strip - Continue outpatient PT - F/u with chronic pain outpatient - Follow-up in 1 month Charla Lipscomb MD PGY4 General Surgery Resident [id number] documented in this encounter [facility] 02-25-2023 Nurse Note What is the reason for your visit today? Post op Who is your referring physician? Dr. Crane Are you having poor oral intake? NO Have you had unintentional weight loss of 15 lbs/7 Kg in the last 3-6 months? NO Bowels: diarrhea Wound: drainage clear/ blood Temperature: No Drains: No documented in this encounter [facility] 02-08-2023 Note [facility] 02-08-2023 Note [facility] 02-08-2023 History of Present illness Narrative Images from the original note were not included. GENERAL SURGERY PROGRESS NOTE Service Date: February 08, 2023 Subjective: Yari Daily is a 57 year old female with PMHx of Asthma, COPD, hypothyroid, sleeve gastrectomy converted to dg-en-Y bypass f/b exp laparotomy, washout and drain placement x2 for gastric leak, and incisional hernia s/p open bilateral TAR on 12/30/2022. Patient c/o abdominal pain throughout the abdomen since surgery exacerbated by movement. Denied any nausea, vomiting, no changes in bowel motion. She tolerating food well and she is afebrile. Physical Exam: BP 113/73 Pulse 56[pulse may run low[ Temp (Src) 97.5 (Temporal) Ht 5' 3 (1.60m) Wt 134 lb (60.8kg) SpO2 99% BMI 23.74 kg/(m^2). GENERAL: no acute distress LUNGS: non-labored breathing on RA CARDIAC: warm and well perfused throughout ABDOMEN: soft, mild tender, non distended, incisions skin dehiscence, no mesh exposed, healing well. Imaging: Ct abdomen 02/01/2023 Post surgical changes of an anterior abdominal wall hernia repair with wound dehiscence and deep enhancement either representing granulation tissue or developing abscesses. Assessment and Plan: Yari Daily is a 57 year old female with history of sleeve gastrectomy converted to dg-en-Y bypass f/b exp laparotomy, washout and drain placement x2 for gastric leak, and incisional hernia s/p open bilateral TAR on 12/30/2022 who presents today for postoperative follow-up. The wound dehiscence was cleaned and silver nitrate was applied to aid healing. - Continue regular packing - Oxycodone 5mg - f/u in 1 month Yvonne Fuentes MD General Surgery, PGY-1 Attending Note I evaluated the patient and personally participated in the thornton components. I agree with the resident's findings and plan with the following revisions and/or additions: She is 6 weeks after open TAR for multiple recurrent hernias. Having more pain than expected, went to the ER last week due to pain. CT scan unremarkeable. Unsure of what is causing so much pain, but I did give her some oxycodone. She is tolerating diet, moving bowels. She is somewhat frustrated with the pain. I will see her back in 4 weeks, Im thinking this is still post op pain, but will see Signature: Connie Crane MD Date: 02/08/2023 Time: 11:18 AM documented in this encounter [facility] 02-08-2023 Nurse Note What is the reason for your visit today? Post op Who is your referring physician? Dr. Crane Are you having poor oral intake? NO Have you had unintentional weight loss of 15 lbs/7 Kg in the last 3-6 months? NO Bowels: constipated or diarrhea Wound: drainage red/ yellow Temperature: No Drains: No documented in this encounter [facility] 02-01-2023 Note HNO ID: [id number] Author: Jennifer Sena RT(Brook) Service: Radiology Author Type: Technologist Type: Progress Notes Filed: 02/01/2023 6:13 PM Note Text: Radiology Service Progress Note PATIENT NAME: Yari Daily DATE OF SERVICE: February 01, 2023 TIME: 6:13 PM PATIENT IDENTITY VERIFICATION COMPLETED USING TWO (2) IDENTIFIERS: Name and Date of confirmed by patient verbally and Name and Date of confirmed by identification band. FALL SCREENING: Has the patient had 2 falls in the last year or 1 fall with injury or currently using an Ambulatory Assistive Device (Walker, Cane, Wheelchair, Crutches, etc.)? Emergency Room Patient: Screened in ED PATIENT GENDER DATA: Female. status: : No status: NO. PATIENT RELEVANT IMPLANT DATA REVIEWED: Not Applicable RADIOLOGY DEPARTMENT: CT; Exam(s) Completed: Abdomen/Pelvis PERIPHERAL IV DATA: Site assessment: Clean,Dry and Intact, Site disposition Left in for next appointment SIGNED BY: RT Ashley(R) February 01, 2023 6:13 PM [facility] 01-28-2023 Note [facility] 01-22-2023 Note [facility] 01-12-2023 Note [facility] 01-12-2023 Miscellaneous Notes PATIENT INFORMATION Record ID: [id number] Patient Name: Yari Daily Hospital: [facility]: [facility] Attending: Connie Craen Center: General Surgery INSTRUCTIONS SN to remind patient of appointment date, time, location Transfer to Controller Instructor Nurse Cook Chill Technician Surgery - [phone] at end of call Transfer to [facility] at end of call SURVEY INFORMATION Medical/Nurse Controller Instructor: Yrn Rosen 1. Your discharge instructions are important in guiding you through the recovery process. Is there anything I could help you clarify on your discharge instructions? (Standard Question) No, All clear 2. Do you have a follow up appointment related to your hospital stay scheduled within the next 30 days? (Standard Question) Yes 3. Do you have any of the following new symptoms related to your wound?; Creamy white or foul smelling drainage Increasing redness or swelling, Increasing pain (Red Flag Question) Yes, it displays one of the symptoms listed MA/SN Notes: Patient was at doctor today got new medication 4. Are you tolerating your pain with your current medication? (Red Flag Question) No, my pain is intolerable MA/SN Notes: Patient was at doctor today got new medication 5. Many patients have concerns about their medications once they are home. Do you have any questions about getting or taking your medications? (Standard Question) No 6. Do you have any new or different symptoms? (Standard Question) No documented in this encounter [facility] 01-12-2023 Nurse Note What is the reason for your visit today? Post op Who is your referring physician? Dr. Edmondson Are you having poor oral intake? NO Have you had unintentional weight loss of 15 lbs/7 Kg in the last 3-6 months? yes Bowels: regular Wound: drainage red/pink Temperature: No Drains: No documented in this encounter [facility] 01-12-2023 History of Present illness Narrative Images from the original note were not included. [facility] Clinic Date: January 12, 2023 Yari Daily 57 year old female CHIEF COMPLAINT: Patient presents for wound check after surgery. HPI: Here for wound check after bilateral TAR, explantation of previous mesh x3, open incisional hernia repair with implantation of 42 x 42 cm Ethicon Prolene polypropylene mesh on 12/30/[address] Crane. Postoperative recovery in the hospital was complicated by a postoperative ileus.Patient had large bowel movements and was passing gas prior to discharge on 01/04/2023. Pain: Endorses significant pain at RLQ. Was taking Tramadol for pain control then was using an old prescription for hydrocodone-acetaminophen liquid. Patient states she cannot swallow pills well and prefers liquid. She also was taking Ibuprofen as needed. Incisional Drainage: Endorses from the inferior portion of her midline Incisional Erythema: Noticed some erythema at the superior portion of her midline. Fever/Chills: Denies Increased Heart Rate: Denies Constipation: Denies Diarrhea: Denies Nausea/Vomiting: Mild nausea. Difficulty Voiding: Denies Current Diet: Loss of appetite.This is her baseline. Present Activity level: Walking. Wanted to run in a race this weekend Surgery Date and Procedure: 12/30/2022 Left myofascial advancement flap Right myofascial advancement flap (59 modifier) Open recurrent incisional hernia repair Explantation of previous mesh x 3 Current Medications: Current Outpatient Medications Medication Sig Dispense Refill magnesium hydroxide (MILK OF MAGNESIA) 400 mg/5 mL suspension Take 15 mL by mouth once daily. 450 mL 0 tamsulosin (FLOMAX) 0.4 mg Take 1 capsule by mouth once daily for 3 days. 3 capsule 0 senna (SENOKOT) 8.6 mg tab Take 1 tablet by mouth once daily. 30 tablet 0 docusate sodium (COLACE) 100 mg capsule Take 1 capsule by mouth twice daily. 60 capsule 0 metoprolol succinate ER (TOPROL XL) 25 mg 24 hr tablet Takes 1/2 tablet aspirin 81 mg chewable tablet Aspirin (Children's Aspirin) 81 mg Tablet,Chewable Active 81 MG PO Daily 90 90 September 18, 2022 12:00am pravastatin (PRAVACHOL) 20 mg tablet multivit-min/iron/folic acid/K (BARIATRIC MULTIVITAMINS ORAL) FAMOTIDINE ORAL Take by mouth. DODEX 1,000 mcg/mL inject 1 milliliter ( 1000 MCG ) intramuscularly EVERY 3 MONTHS 1 mL 2 VITAMIN D 25 mcg (1,000 unit) cap take 1 capsule by mouth once daily 60 capsule 0 imfjjxad-tfb-qygf-folic-vit K (CENTRUM) 8 mg-400 mcg- 10 mcg chewable tablet Take 1 tablet by mouth once daily. 90 tablet 3 calcium carbonate (TUMS) 500 mg chew Take 2 tablets by mouth twice daily. 60 tablet 0 ondansetron orally disintegrating (ZOFRAN ODT) 4 mg disintegrating tablet Take 1 tablet by mouth every 6 hours. 20 tablet 0 nystatin (MYCOSTATIN) 100,000 unit/mL suspension take 5 milliliters by mouth four times a day for 7 days levothyroxine (SYNTHROID) 88 mcg tablet Take 100 mcg by mouth once daily. albuterol HFA (PROAIR HFA) 90 mcg/actuation inhaler 2 Puffs every 4 hours as needed. Take as directed 1 Inhaler 3 Insulin [place], Disposable, (BD ULTRA-FINE ABI PEN NEEDLE) 32 gauge x 5/32 ndle Use as directed with 1 subcutaneous injection daily. 100 Each 3 No current facility-administered medications for this visit. REVIEW OF SYSTEMS: CONSTITUTIONAL: Patient denies fevers, chills, sweats CARDIOVASCULAR: Patient denies chest pains, palpitations RESPIRATORY: No dyspnea on exertion, no wheezing or cough. GI: No diarrhea. No constipation. Nausea. MUSCULOSKELETAL: No new myalgias or arthralgias. DERMATOLOGIC: Patient denies any rashes or skin changes. PHYSICAL EXAM: BP 105/59 Pulse 71 Temp 36.1 C (97 F) (Temporal) Ht 160 cm (5' 3 ) Wt 63 kg (139 lb) BMI 24.62 kg/m GENERAL: No apparent distress. Pt is alert and oriented x3. LUNGS: Lungs clear and equal. No wheezing HEART: Regular rate and rhythm without murmur. No leg edema ABDOMEN: Soft, nontender, and nondistended. Positive bowel sounds. EXTREMITIES: Without any cyanosis, clubbing, rash, lesions or edema. INCISIONS: Midline with erythema at superior portion of midline. Inferior portion of midline wound dehiscence about 3 cm in depth. Fascia intact. SURGICAL PATHOLOGY: N/A ASSESSMENT/PLAN: Inferior portion of midline wound opened.Patient to back with Kerlix wet-to-dry BID. Wound culture sent. Doxycyline 100 mg BID prescribed for concern for cellulitis at superior portion of midline. Hydrocodone-Aceteminophen liquid prescribed for pain. Post-op patient instructions were reviewed with the patient. I have explained to Yari Daily that they may return to activity as tolerated. I have encouraged them to contact me at any time with any questions or concerns that may arise. Plan for followup at scheduled appointment on 01/26 for wound check. Randomized Controlled Trial: N/A Abhijit Edmondson, MSN, HAND FINISHER-PRODUCTION TECHNOLOGIST January 12, 2023 documented in this encounter [facility] 01-11-2023 Miscellaneous Notes Spoke with patient regarding abdominal pain and drainage. Patient state she continues to have drainage from her incision but now is having increased abdominal pain. She denies erythema, warmth, fever/chills. Patient's has an appointment tomorrow 01/12 at [facility]. Plan for patient to come in tomorrow at 9 AM to be assessed. Abhijit Edmondson MSN, HAND FINISHER, BREAKER BOSS-C January 11, 2023 11:43 AM documented in this encounter [facility] 01-10-2023 Miscellaneous Notes Received call from patient regarding worsening abdominal pain of 1 day duration. Patient reports sudden onset abdominal pain after sneezing. Patient denies any nausea, vomiting, fever or chills. She reports that the pain is now controlled on Tylenol, Motrin and Tramadol. I advised patient that she will need to be evaluated here or at a local ED given her pain. Patient agreed to monitor progression and symptoms. She will present to our ED if pain persists. documented in this encounter [facility] 01-09-2023 Miscellaneous Notes Patient called reporting increased drainage from her abdominal incision. She reports that beginning last night, she has had higher volume of drainage, which she describes as thin, yellow, and slightly blood-tinged. It has no odor. It is not associated with skin changes, redness, swelling, abdominal pain, fevers or chills. I told her to come to an ED if she begins to have any of the signs or symptoms listed above. Jerrod Rolle MD PGY-3 General Surgery Pager: [phone] documented in this encounter [facility] 01-04-2023 Note [facility] 01-03-2023 Note [facility] 01-02-2023 Note [facility] 01-01-2023 History of Past i llness Narrative Problem Noted Date Diagnosed Date Resolved Date Acute urinary retention 01/01/202309/2022 Last Assessment & Plan: Assessment: Developed urinary retention s/p blackmon removal 12/31. Requiring straight cath and subsequent blackmon replacement. Plan: - Flomax - Continue blackmon catheter today Recurrent ventral hernia 12/30/202209/2022 Last Assessment & Plan: Assessment: S/p mesh excision and bilateral TAR and ventral hernia repair with mesh placement with Dr. Crnae 12/30. Plan: - Continue routine postoperative care - SCD's while in bed - BERHANE drains to bulb suction - IS 10 breaths q1h - Encourage ambulation and OOB TC for meal times 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/23/2017 8 [place] 07/04/2017 07/06/2017 Overview: Bilateral conjunctival redness Decreased vision, 20/200 on snellen chart Describes it as blotches on the chart Headache associated initially, improved with timolol and steroid eye drops as per patient Plan: Opthalmology consult Continue timolol eye drops for IOP control Inflammatory arthritis 07/03/201701/24 Abdominal pain 07/17/2016 01/29/2017 Abdominal wall seroma 07/09/20162016 documented as of this encounter (statuses as of 01/10/2023) [facility] History of Past illness Narrative* Problem Noted Date Diagnosed Date Resolved Date Acute urinary retention 01/01/202309/2022 Last Assessment & Plan: Assessment: Developed urinary retention s/p blackmon removal 12/31. Requiring straight cath and subsequent blackmon replacement. Plan: - Flomax - Continue blackmon catheter today Recurrent ventral hernia 12/30/202209/2022 Last Assessment & Plan: Assessment: S/p mesh excision and bilateral TAR and ventral hernia repair with mesh placement with Dr. Crane 12/30. Plan: - Continue routine postoperative care - SCD's while in bed - BERHANE drains to bulb suction - IS 10 breaths q1h - Encourage ambulation and OOB TC for meal times 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/23/2017 8 [place] 07/04/2017 07/06/2017 Overview: Bilateral conjunctival redness Decreased vision, 20/200 on snellen chart Describes it as blotches on the chart Headache associated initially, improved with timolol and steroid eye drops as per patient Plan: Opthalmology consult Continue timolol eye drops for IOP control Inflammatory arthritis 07/03/201701/24 Abdominal pain 07/17/2016 01/29/2017 Abdominal wall seroma 07/09/20162016 documented as of this encounter (statuses as of 01/10/2023) [facility] History of Past illness Narrative* Problem Noted Date Diagnosed Date Resolved Date Acute urinary retention 01/01/2023 07/0 09/2022 Last Assessment & Plan: Assessment: Developed urinary retention s/p blackmon removal 12/31. Requiring straight cath and subsequent blackmon replacement. Plan: - Flomax - Continue blackmon catheter today Recurrent ventral hernia 12/30/202209/2022 Last Assessment & Plan: Assessment: S/p mesh excision and bilateral TAR and ventral hernia repair with mesh placement with Dr. Crane 12/30. Plan: - Continue routine postoperative care - SCD's while in bed - BERHANE drains to bulb suction - IS 10 breaths q1h - Encourage ambulation and OOB TC for meal times 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/23/2017 8 [place] 07/04/2017 07/06/2017 Overview: Bilateral conjunctival redness Decreased vision, 20/200 on snellen chart Describes it as blotches on the chart Headache associated initially, improved with timolol and steroid eye drops as per patient Plan: Opthalmology consult Continue timolol eye drops for IOP control Inflammatory arthritis 07/03/201701/24 Abdominal pain 07/17/2016 01/29/2017 Abdominal wall seroma 07/09/20162016 documented as of this encounter (statuses as of 01/12/2023) [facility] History of Past illness Narrative* Problem Noted Date Diagnosed Date Resolved Date Acute urinary retention 01/01/2023 07/0 09/2022 Last Assessment & Plan: Assessment: Developed urinary retention s/p blackmon removal 12/31. Requiring straight cath and subsequent blackmon replacement. Plan: - Flomax - Continue blackmon catheter today Recurrent ventral hernia 12/30/202209/2022 Last Assessment & Plan: Assessment: S/p mesh excision and bilateral TAR and ventral hernia repair with mesh placement with Dr. Crane 12/30. Plan: - Continue routine postoperative care - SCD's while in bed - BERHANE drains to bulb suction - IS 10 breaths q1h - Encourage ambulation and OOB TC for meal times 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/23/2017 8 [place] 07/04/2017 07/06/2017 Overview: Bilateral conjunctival redness Decreased vision, 20/200 on snellen chart Describes it as blotches on the chart Headache associated initially, improved with timolol and steroid eye drops as per patient Plan: Opthalmology consult Continue timolol eye drops for IOP control Inflammatory arthritis 07/03/201701/24 Abdominal pain 07/17/2016 01/29/2017 Abdominal wall seroma 07/09/20162016 documented as of this encounter (statuses as of 01/12/2023) [facility] History of Past illness Narrative* Problem Noted Date Diagnosed Date Resolved Date Acute urinary retention 01/01/202309/2022 Last Assessment & Plan: Assessment: Developed urinary retention s/p blackmon removal 12/31. Requiring straight cath and subsequent blackmon replacement. Plan: - Flomax - Continue blackmon catheter today Recurrent ventral hernia 12/30/202209/2022 Last Assessment & Plan: Assessment: S/p mesh excision and bilateral TAR and ventral hernia repair with mesh placement with Dr. Crane 12/30. Plan: - Continue routine postoperative care - SCD's while in bed - BERHANE drains to bulb suction - IS 10 breaths q1h - Encourage ambulation and OOB TC for meal times 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/23/2017 8 [place] 07/04/2017 07/06/2017 Overview: Bilateral conjunctival redness Decreased vision, 20/200 on snellen chart Describes it as blotches on the chart Headache associated initially, improved with timolol and steroid eye drops as per patient Plan: Opthalmology consult Continue timolol eye drops for IOP control Inflammatory arthritis 07/03/201701/24 Abdominal pain 07/17/2016 01/29/2017 Abdominal wall seroma 07/09/20162016 documented as of this encounter (statuses as of 01/14/2023) [facility] History of Past illness Narrative* Problem Noted Date Diagnosed Date Resolved Date Acute urinary retention 01/01/202309/2022 Last Assessment & Plan: Assessment: Developed urinary retention s/p blackmon removal 12/31. Requiring straight cath and subsequent blackmon replacement. Plan: - Flomax - Continue blackmon catheter today Recurrent ventral hernia 12/30/202209/2022 Last Assessment & Plan: Assessment: S/p mesh excision and bilateral TAR and ventral hernia repair with mesh placement with Dr. Crane 12/30. Plan: - Continue routine postoperative care - SCD's while in bed - BERHANE drains to bulb suction - IS 10 breaths q1h - Encourage ambulation and OOB TC for meal times 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/23/2017 8 [place] 07/04/2017 07/06/2017 Overview: Bilateral conjunctival redness Decreased vision, 20/200 on snellen chart Describes it as blotches on the chart Headache associated initially, improved with timolol and steroid eye drops as per patient Plan: Opthalmology consult Continue timolol eye drops for IOP control Inflammatory arthritis 07/03/201701/24 Abdominal pain 07/17/2016 01/29/2017 Abdominal wall seroma 07/09/20162016 documented as of this encounter (statuses as of 01/14/2023) [facility] History of Past illness Narrative* Problem Noted Date Diagnosed Date Resolved Date Acute urinary retention 01/01/2023 07/09/2022 Last Assessment & Plan: Assessment: Developed urinary retention s/p blackmon removal 12/31. Requiring straight cath and subsequent blackmon replacement. Plan: - Flomax - Continue blackmon catheter today Recurrent ventral hernia 12/30/202209/2022 Last Assessment & Plan: Assessment: S/p mesh excision and bilateral TAR and ventral hernia repair with mesh placement with Dr. Crane 12/30. Plan: - Continue routine postoperative care - SCD's while in bed - BERHANE drains to bulb suction - IS 10 breaths q1h - Encourage ambulation and OOB TC for meal times 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/23/2017 8 [place] 07/04/2017 07/06/2017 Overview: Bilateral conjunctival redness Decreased vision, 20/200 on snellen chart Describes it as blotches on the chart Headache associated initially, improved with timolol and steroid eye drops as per patient Plan: Opthalmology consult Continue timolol eye drops for IOP control Inflammatory arthritis 07/03/201701/24 Abdominal pain 07/17/2016 01/29/2017 Abdominal wall seroma 07/09/20162016 documented as of this encounter (statuses as of 01/15/2023) [facility] History of Past illness Narrative* Problem Noted Date Diagnosed Date Resolved Date Acute urinary retention 01/01/2023 07/0 09/2022 Last Assessment & Plan: Assessment: Developed urinary retention s/p blackmon removal 12/31. Requiring straight cath and subsequent blackmon replacement. Plan: - Flomax - Continue blackmon catheter today Recurrent ventral hernia 12/30/202209/2022 Last Assessment & Plan: Assessment: S/p mesh excision and bilateral TAR and ventral hernia repair with mesh placement with Dr. Crane 12/30. Plan: - Continue routine postoperative care - SCD's while in bed - BERHANE drains to bulb suction - IS 10 breaths q1h - Encourage ambulation and OOB TC for meal times 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/23/2017 8 [place] 07/04/2017 07/06/2017 Overview: Bilateral conjunctival redness Decreased vision, 20/200 on snellen chart Describes it as blotches on the chart Headache associated initially, improved with timolol and steroid eye drops as per patient Plan: Opthalmology consult Continue timolol eye drops for IOP control Inflammatory arthritis 07/03/201701/24 Abdominal pain 07/17/2016 01/29/2017 Abdominal wall seroma 07/09/20162016 documented as of this encounter (statuses as of 02/08/2023) [facility] History of Past illness Narrative* Problem Noted Date Diagnosed Date Resolved Date Acute urinary retention 01/01/20230 09/2022 Last Assessment & Plan: Assessment: Developed urinary retention s/p blackmon removal 12/31. Requiring straight cath and subsequent blackmon replacement. Plan: - Flomax - Continue blackmon catheter today Recurrent ventral hernia 12/30/202209/2022 Last Assessment & Plan: Assessment: S/p mesh excision and bilateral TAR and ventral hernia repair with mesh placement with Dr. Crane 12/30. Plan: - Continue routine postoperative care - SCD's while in bed - BERHANE drains to bulb suction - IS 10 breaths q1h - Encourage ambulation and OOB TC for meal times 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/23/2017 8 [place] 07/04/2017 07/06/2017 Overview: Bilateral conjunctival redness Decreased vision, 20/200 on snellen chart Describes it as blotches on the chart Headache associated initially, improved with timolol and steroid eye drops as per patient Plan: Opthalmology consult Continue timolol eye drops for IOP control Inflammatory arthritis 07/03/201701/24 Abdominal pain 07/17/2016 01/29/2017 Abdominal wall seroma 07/09/20162016 documented as of this encounter (statuses as of 02/09/2023) [facility] History of Past illness Narrative* Problem Noted Date Diagnosed Date Resolved Date Acute urinary retention 01/01/2023 07/0 09/2022 Last Assessment & Plan: Assessment: Developed urinary retention s/p blackmon removal 12/31. Requiring straight cath and subsequent blackmon replacement. Plan: - Flomax - Continue blackmon catheter today Recurrent ventral hernia 12/30/202209/2022 Last Assessment & Plan: Assessment: S/p mesh excision and bilateral TAR and ventral hernia repair with mesh placement with Dr. Crane 12/30. Plan: - Continue routine postoperative care - SCD's while in bed - BERHANE drains to bulb suction - IS 10 breaths q1h - Encourage ambulation and OOB TC for meal times 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/23/2017 8 [place] 07/04/2017 07/06/2017 Overview: Bilateral conjunctival redness Decreased vision, 20/200 on snellen chart Describes it as blotches on the chart Headache associated initially, improved with timolol and steroid eye drops as per patient Plan: Opthalmology consult Continue timolol eye drops for IOP control Inflammatory arthritis 07/03/201701/24 Abdominal pain 07/17/2016 01/29/2017 Abdominal wall seroma 07/09/20162016 documented as of this encounter (statuses as of 02/18/2023) [facility] History of Past illness Narrative* Problem Noted Date Diagnosed Date Resolved Date Acute urinary retention 01/01/2023 07/0 09/2022 Last Assessment & Plan: Assessment: Developed urinary retention s/p blackmon removal 12/31. Requiring straight cath and subsequent blackmon replacement. Plan: - Flomax - Continue blackmon catheter today Recurrent ventral hernia 12/30/202209/2022 Last Assessment & Plan: Assessment: S/p mesh excision and bilateral TAR and ventral hernia repair with mesh placement with Dr. Crane 12/30. Plan: - Continue routine postoperative care - SCD's while in bed - BERHANE drains to bulb suction - IS 10 breaths q1h - Encourage ambulation and OOB TC for meal times 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/23/2017 8 [place] 07/04/2017 07/06/2017 Overview: Bilateral conjunctival redness Decreased vision, 20/200 on snellen chart Describes it as blotches on the chart Headache associated initially, improved with timolol and steroid eye drops as per patient Plan: Opthalmology consult Continue timolol eye drops for IOP control Inflammatory arthritis 07/03/201701/24 Abdominal pain 07/17/2016 01/29/2017 Abdominal wall seroma 07/09/20162016 documented as of this encounter (statuses as of 02/18/2023) [facility] History of Past illness Narrative* Problem Noted Date Diagnosed Date Resolved Date Acute urinary retention 01/01/2023 070 09/2022 Last Assessment & Plan: Assessment: Developed urinary retention s/p blackmon removal 12/31. Requiring straight cath and subsequent blackmon replacement. Plan: - Flomax - Continue blackmon catheter today Recurrent ventral hernia 12/30/202209/2022 Last Assessment & Plan: Assessment: S/p mesh excision and bilateral TAR and ventral hernia repair with mesh placement with Dr. Crane 12/30. Plan: - Continue routine postoperative care - SCD's while in bed - BERHANE drains to bulb suction - IS 10 breaths q1h - Encourage ambulation and OOB TC for meal times 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/23/2017 8 [place] 07/04/2017 07/06/2017 Overview: Bilateral conjunctival redness Decreased vision, 20/200 on snellen chart Describes it as blotches on the chart Headache associated initially, improved with timolol and steroid eye drops as per patient Plan: Opthalmology consult Continue timolol eye drops for IOP control Inflammatory arthritis 07/03/201701/24 Abdominal pain 07/17/2016 01/29/2017 Abdominal wall seroma 07/09/20162016 documented as of this encounter (statuses as of 02/26/2023) [facility]2023 History of Past illness Narrative* Problem Noted Date Diagnosed Date Resolved Date Acute urinary retention 01/01/2023 07/0 09/2022 Last Assessment & Plan: Assessment: Developed urinary retention s/p blackmon removal 12/31. Requiring straight cath and subsequent blackmon replacement. Plan: - Flomax - Continue blackmon catheter today Recurrent ventral hernia 12/30/202209/2022 Last Assessment & Plan: Assessment: S/p mesh excision and bilateral TAR and ventral hernia repair with mesh placement with Dr. Crane 12/30. Plan: - Continue routine postoperative care - SCD's while in bed - BERHANE drains to bulb suction - IS 10 breaths q1h - Encourage ambulation and OOB TC for meal times 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/23/2017 8 [place] [facility] 07/04/2017 07/06/2017 Overview: Bilateral conjunctival redness Decreased vision, 20/200 on snellen chart Describes it as blotches on the chart Headache associated initially, improved with timolol and steroid eye drops as per patient Plan: Opthalmology consult Continue timolol eye drops for IOP control Inflammatory arthritis 07/03/201701/24 Abdominal pain 07/17/2016 01/29/2017 Abdominal wall seroma 07/09/20162016 documented as of this encounter (statuses as of 03/12/2023) [facility] History of Past illness Narrative* Problem Noted Date Diagnosed Date Resolved Date Acute urinary retention 01/01/2023 07/0 09/2022 Last Assessment & Plan: Assessment: Developed urinary retention s/p blackmon removal 12/31. Requiring straight cath and subsequent blackmon replacement. Plan: - Flomax - Continue blackmon catheter today Recurrent ventral hernia 12/30/202209/2022 Last Assessment & Plan: Assessment: S/p mesh excision and bilateral TAR and ventral hernia repair with mesh placement with Dr. Crane 12/30. Plan: - Continue routine postoperative care - SCD's while in bed - BERHANE drains to bulb suction - IS 10 breaths q1h - Encourage ambulation and OOB TC for meal times 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/23/2017 8 [place] 07/04/2017 07/06/2017 Overview: Bilateral conjunctival redness Decreased vision, 20/200 on snellen chart Describes it as blotches on the chart Headache associated initially, improved with timolol and steroid eye drops as per patient Plan: Opthalmology consult Continue timolol eye drops for IOP control Inflammatory arthritis 07/03/201701/24 Abdominal pain 07/17/2016 01/29/2017 Abdominal wall seroma 07/09/20162016 documented as of this encounter (statuses as of 03/18/2023) [facility] History of Past illness Narrative* Problem Noted Date Diagnosed Date Resolved Date Acute urinary retention 01/01/2023 070 09/2022 Last Assessment & Plan: Assessment: Developed urinary retention s/p blackmon removal 12/31. Requiring straight cath and subsequent blackmon replacement. Plan: - Flomax - Continue blackmon catheter today Recurrent ventral hernia 12/30/202209/2022 Last Assessment & Plan: Assessment: S/p mesh excision and bilateral TAR and ventral hernia repair with mesh placement with Dr. Crane 12/30. Plan: - Continue routine postoperative care - SCD's while in bed - BERHANE drains to bulb suction - IS 10 breaths q1h - Encourage ambulation and OOB TC for meal times 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/23/2017 8 [place] 07/04/2017 07/06/2017 Overview: Bilateral conjunctival redness Decreased vision, 20/200 on snellen chart Describes it as blotches on the chart Headache associated initially, improved with timolol and steroid eye drops as per patient Plan: Opthalmology consult Continue timolol eye drops for IOP control Inflammatory arthritis 07/03/201701/24 Abdominal pain 07/17/2016 01/29/2017 Abdominal wall seroma 07/09/20162016 documented as of this encounter (statuses as of 04/14/2023) [facility] History of Past illness Narrative* Problem Noted Date Diagnosed Date Resolved Date Acute urinary retention 01/01/2023 07/0 09/2022 Last Assessment & Plan: Assessment: Developed urinary retention s/p blackmon removal 12/31. Requiring straight cath and subsequent blackmon replacement. Plan: - Flomax - Continue blackmon catheter today Recurrent ventral hernia 12/30/202209/2022 Last Assessment & Plan: Assessment: S/p mesh excision and bilateral TAR and ventral hernia repair with mesh placement with Dr. Crane 12/30. Plan: - Continue routine postoperative care - SCD's while in bed - BERHANE drains to bulb suction - IS 10 breaths q1h - Encourage ambulation and OOB TC for meal times 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/23/2017 8 [place] 07/04/2017 07/06/2017 Overview: Bilateral conjunctival redness Decreased vision, 20/200 on snellen chart Describes it as blotches on the chart Headache associated initially, improved with timolol and steroid eye drops as per patient Plan: Opthalmology consult Continue timolol eye drops for IOP control Inflammatory arthritis 07/03/201701/24 Abdominal pain 07/17/2016 01/29/2017 Abdominal wall seroma 07/09/20162016 documented as of this encounter (statuses as of 04/15/2023) [facility] History of Past illness Narrative* Problem Noted Date Diagnosed Date Resolved Date Acute urinary retention 01/01/2023 07/0 09/2022 Last Assessment & Plan: Assessment: Developed urinary retention s/p blackmon removal 12/31. Requiring straight cath and subsequent blackmon replacement. Plan: - Flomax - Continue blackmon catheter today Recurrent ventral hernia 12/30/202209/2022 Last Assessment & Plan: Assessment: S/p mesh excision and bilateral TAR and ventral hernia repair with mesh placement with Dr. Crane 12/30. Plan: - Continue routine postoperative care - SCD's while in bed - BERHANE drains to bulb suction - IS 10 breaths q1h - Encourage ambulation and OOB TC for meal times 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/23/2017 8 [place] 07/04/2017 07/06/2017 Overview: Bilateral conjunctival redness Decreased vision, 20/200 on snellen chart Describes it as blotches on the chart Headache associated initially, improved with timolol and steroid eye drops as per patient Plan: Opthalmology consult Continue timolol eye drops for IOP control Inflammatory arthritis 07/03/201701/24 Abdominal pain 07/17/2016 01/29/2017 Abdominal wall seroma 07/09/20162016 documented as of this encounter (statuses as of 04/29/2023) [facility] History of Past illness Narrative* Problem Noted Date Diagnosed Date Resolved Date Acute urinary retention 01/01/2023 07/0 09/2022 Last Assessment & Plan: Assessment: Developed urinary retention s/p blackmon removal 12/31. Requiring straight cath and subsequent blackmon replacement. Plan: - Flomax - Continue blackmon catheter today Recurrent ventral hernia 12/30/202209/2022 Last Assessment & Plan: Assessment: S/p mesh excision and bilateral TAR and ventral hernia repair with mesh placement with Dr. Crane 12/30. Plan: - Continue routine postoperative care - SCD's while in bed - BERHANE drains to bulb suction - IS 10 breaths q1h - Encourage ambulation and OOB TC for meal times 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/23/2017 8 [place] 07/04/2017 07/06/2017 Overview: Bilateral conjunctival redness Decreased vision, 20/200 on snellen chart Describes it as blotches on the chart Headache associated initially, improved with timolol and steroid eye drops as per patient Plan: Opthalmology consult Continue timolol eye drops for IOP control Inflammatory arthritis 07/03/201701/24 Abdominal pain 07/17/2016 01/29/2017 Abdominal wall seroma 07/09/20162016 documented as of this encounter (statuses as of 05/03/2023) [facility] History of Past illness Narrative* Problem Noted Date Diagnosed Date Resolved Date Acute urinary retention 01/01/2023 07/0 09/2022 Last Assessment & Plan: Assessment: Developed urinary retention s/p blackmon removal 12/31. Requiring straight cath and subsequent blackmon replacement. Plan: - Flomax - Continue blackmon catheter today Recurrent ventral hernia 12/30/202209/2022 Last Assessment & Plan: Assessment: S/p mesh excision and bilateral TAR and ventral hernia repair with mesh placement with Dr. Craen 12/30. Plan: - Continue routine postoperative care - SCD's while in bed - BERHANE drains to bulb suction - IS 10 breaths q1h - Encourage ambulation and OOB TC for meal times 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/23/2017 8 [place] 07/04/2017 07/06/2017 Overview: Bilateral conjunctival redness Decreased vision, 20/200 on snellen chart Describes it as blotches on the chart Headache associated initially, improved with timolol and steroid eye drops as per patient Plan: Opthalmology consult Continue timolol eye drops for IOP control Inflammatory arthritis 07/03/201701/24 Abdominal pain 07/17/2016 01/29/2017 Abdominal wall seroma 07/09/20162016 documented as of this encounter (statuses as of 05/04/2023) [facility] History of Past illness Narrative* Problem Noted Date Diagnosed Date Resolved Date Acute urinary retention 01/01/2023 07/0 09/2022 Last Assessment & Plan: Assessment: Developed urinary retention s/p blackmon removal 12/31. Requiring straight cath and subsequent blackmon replacement. Plan: - Flomax - Continue blackmon catheter today Recurrent ventral hernia 12/30/202209/2022 Last Assessment & Plan: Assessment: S/p mesh excision and bilateral TAR and ventral hernia repair with mesh placement with Dr. Crane 12/30. Plan: - Continue routine postoperative care - SCD's while in bed - BERHANE drains to bulb suction - IS 10 breaths q1h - Encourage ambulation and OOB TC for meal times 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/23/2017 8 [place] 07/04/2017 07/06/2017 Overview: Bilateral conjunctival redness Decreased vision, 20/200 on snellen chart Describes it as blotches on the chart Headache associated initially, improved with timolol and steroid eye drops as per patient Plan: Opthalmology consult Continue timolol eye drops for IOP control Inflammatory arthritis 07/03/201701/24 Abdominal pain 07/17/2016 01/29/2017 Abdominal wall seroma 07/09/20162016 documented as of this encounter (statuses as of 05/13/2023) [facility] History of Past illness Narrative* Problem Noted Date Diagnosed Date Resolved Date Acute urinary retention 01/01/2023 07/0 09/2022 Last Assessment & Plan: Assessment: Developed urinary retention s/p blackmon removal 12/31. Requiring straight cath and subsequent blackmon replacement. Plan: - Flomax - Continue blackmon catheter today Recurrent ventral hernia 12/30/202209/2022 Last Assessment & Plan: Assessment: S/p mesh excision and bilateral TAR and ventral hernia repair with mesh placement with Dr. Crane 12/30. Plan: - Continue routine postoperative care - SCD's while in bed - BERHANE drains to bulb suction - IS 10 breaths q1h - Encourage ambulation and OOB TC for meal times 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/23/2017 8 [place] 07/04/2017 07/06/2017 Overview: Bilateral conjunctival redness Decreased vision, 20/200 on snellen chart Describes it as blotches on the chart Headache associated initially, improved with timolol and steroid eye drops as per patient Plan: Opthalmology consult Continue timolol eye drops for IOP control Inflammatory arthritis 07/03/201701/24 Abdominal pain 07/17/2016 01/29/2017 Abdominal wall seroma 07/09/20162016 documented as of this encounter (statuses as of 05/13/2023) [facility] History of Past illness Narrative* Problem Noted Date Diagnosed Date Resolved Date Acute urinary retention 01/01/2023 07/0 09/2022 Last Assessment & Plan: Assessment: Developed urinary retention s/p blackmon removal 12/31. Requiring straight cath and subsequent blackmon replacement. Plan: - Flomax - Continue blackmon catheter today Recurrent ventral hernia 12/30/202209/2022 Last Assessment & Plan: Assessment: S/p mesh excision and bilateral TAR and ventral hernia repair with mesh placement with Dr. Crane 12/30. Plan: - Continue routine postoperative care - SCD's while in bed - BERHANE drains to bulb suction - IS 10 breaths q1h - Encourage ambulation and OOB TC for meal times 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/23/2017 8 [place] 07/04/2017 07/06/2017 Overview: Bilateral conjunctival redness Decreased vision, 20/200 on snellen chart Describes it as blotches on the chart Headache associated initially, improved with timolol and steroid eye drops as per patient Plan: Opthalmology consult Continue timolol eye drops for IOP control Inflammatory arthritis 07/03/201701/24 Abdominal pain 07/17/2016 01/29/2017 Abdominal wall seroma 07/09/20162016 documented as of this encounter (statuses as of 05/21/2023) [facility] History of Past illness Narrative* Problem Noted Date Diagnosed Date Resolved Date Acute urinary retention 01/01/2023 07/0 09/2022 Last Assessment & Plan: Assessment: Developed urinary retention s/p blackmon removal 12/31. Requiring straight cath and subsequent blackmon replacement. Plan: - Flomax - Continue blackmon catheter today Recurrent ventral hernia 12/30/202209/2022 Last Assessment & Plan: Assessment: S/p mesh excision and bilateral TAR and ventral hernia repair with mesh placement with Dr. Crane 12/30. Plan: - Continue routine postoperative care - SCD's while in bed - BERHANE drains to bulb suction - IS 10 breaths q1h - Encourage ambulation and OOB TC for meal times 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/23/2017 8 [place] 07/04/2017 07/06/2017 Overview: Bilateral conjunctival redness Decreased vision, 20/200 on snellen chart Describes it as blotches on the chart Headache associated initially, improved with timolol and steroid eye drops as per patient Plan: Opthalmology consult Continue timolol eye drops for IOP control Inflammatory arthritis 07/03/201701/24 Abdominal pain 07/17/2016 01/29/2017 Abdominal wall seroma 07/09/20162016 documented as of this encounter (statuses as of 05/21/2023) [facility] History of Past illness Narrative* Problem Noted Date Diagnosed Date Resolved Date Acute urinary retention 01/01/2023 07/0 09/2022 Last Assessment & Plan: Assessment: Developed urinary retention s/p blackmon removal 12/31. Requiring straight cath and subsequent blackmon replacement. Plan: - Flomax - Continue blackmon catheter today Recurrent ventral hernia 12/30/202209/2022 Last Assessment & Plan: Assessment: S/p mesh excision and bilateral TAR and ventral hernia repair with mesh placement with Dr. Crane 12/30. Plan: - Continue routine postoperative care - SCD's while in bed - BERHANE drains to bulb suction - IS 10 breaths q1h - Encourage ambulation and OOB TC for meal times 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/23/2017 8 [place] 07/04/2017 07/06/2017 Overview: Bilateral conjunctival redness Decreased vision, 20/200 on snellen chart Describes it as blotches on the chart Headache associated initially, improved with timolol and steroid eye drops as per patient Plan: Opthalmology consult Continue timolol eye drops for IOP control Inflammatory arthritis 07/03/201701/24 Abdominal pain 07/17/2016 01/29/2017 Abdominal wall seroma 07/09/20162016 documented as of this encounter (statuses as of 05/31/2023) [facility] History of Past illness Narrative* Problem Noted Date Diagnosed Date Resolved Date Acute urinary retention 01/01/2023 07/0 09/2022 Last Assessment & Plan: Assessment: Developed urinary retention s/p blackmon removal 12/31. Requiring straight cath and subsequent blackmon replacement. Plan: - Flomax - Continue blackmon catheter today Recurrent ventral hernia 12/30/202209/2022 Last Assessment & Plan: Assessment: S/p mesh excision and bilateral TAR and ventral hernia repair with mesh placement with Dr. Crane 12/30. Plan: - Continue routine postoperative care - SCD's while in bed - BERHANE drains to bulb suction - IS 10 breaths q1h - Encourage ambulation and OOB TC for meal times 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/23/2017 8 [place] 07/04/2017 07/06/2017 Overview: Bilateral conjunctival redness Decreased vision, 20/200 on snellen chart Describes it as blotches on the chart Headache associated initially, improved with timolol and steroid eye drops as per patient Plan: Opthalmology consult Continue timolol eye drops for IOP control Inflammatory arthritis 07/03/201701/24 Abdominal pain 07/17/2016 01/29/2017 Abdominal wall seroma 07/09/20162016 documented as of this encounter (statuses as of 06/08/2023) [facility] History of Past illness Narrative* Problem Noted Date Diagnosed Date Resolved Date Acute urinary retention 01/01/2023 07/0 09/2022 Last Assessment & Plan: Assessment: Developed urinary retention s/p blackmon removal 12/31. Requiring straight cath and subsequent blackmon replacement. Plan: - Flomax - Continue blackmon catheter today Recurrent ventral hernia 12/30/202209/2022 Last Assessment & Plan: Assessment: S/p mesh excision and bilateral TAR and ventral hernia repair with mesh placement with Dr. Crane 12/30. Plan: - Continue routine postoperative care - SCD's while in bed - BERHANE drains to bulb suction - IS 10 breaths q1h - Encourage ambulation and OOB TC for meal times 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/23/2017 8 [place] 07/04/2017 07/06/2017 Overview: Bilateral conjunctival redness Decreased vision, 20/200 on snellen chart Describes it as blotches on the chart Headache associated initially, improved with timolol and steroid eye drops as per patient Plan: Opthalmology consult Continue timolol eye drops for IOP control Inflammatory arthritis 07/03/201701/24 Abdominal pain 07/17/2016 01/29/2017 Abdominal wall seroma 07/09/20162016 documented as of this encounter (statuses as of 06/15/2023) [facility] History of Past illness Narrative* Problem Noted Date Diagnosed Date Resolved Date Acute urinary retention 01/01/2023 07/0 09/2022 Last Assessment & Plan: Assessment: Developed urinary retention s/p blackmon removal 12/31. Requiring straight cath and subsequent blackmon replacement. Plan: - Flomax - Continue blackmon catheter today Recurrent ventral hernia 12/30/202209/2022 Last Assessment & Plan: Assessment: S/p mesh excision and bilateral TAR and ventral hernia repair with mesh placement with Dr. Crane 12/30. Plan: - Continue routine postoperative care - SCD's while in bed - BERHANE drains to bulb suction - IS 10 breaths q1h - Encourage ambulation and OOB TC for meal times 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/23/2017 8 [place] 07/04/2017 07/06/2017 Overview: Bilateral conjunctival redness Decreased vision, 20/200 on snellen chart Describes it as blotches on the chart Headache associated initially, improved with timolol and steroid eye drops as per patient Plan: Opthalmology consult Continue timolol eye drops for IOP control Inflammatory arthritis 07/03/201701/24 Abdominal pain 07/17/2016 01/29/2017 Abdominal wall seroma 07/09/20162016 documented as of this encounter (statuses as of 06/16/2023) [facility] History of Past illness Narrative* Problem Noted Date Diagnosed Date Resolved Date Acute urinary retention 01/01/2023 07/0 09/2022 Last Assessment & Plan: Assessment: Developed urinary retention s/p blackmon removal 12/31. Requiring straight cath and subsequent blackmon replacement. Plan: - Flomax - Continue blackmon catheter today Recurrent ventral hernia 12/30/202209/2022 Last Assessment & Plan: Assessment: S/p mesh excision and bilateral TAR and ventral hernia repair with mesh placement with Dr. Crane 12/30. Plan: - Continue routine postoperative care - SCD's while in bed - BERHANE drains to bulb suction - IS 10 breaths q1h - Encourage ambulation and OOB TC for meal times 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/23/2017 8 [place] 07/04/2017 07/06/2017 Overview: Bilateral conjunctival redness Decreased vision, 20/200 on snellen chart Describes it as blotches on the chart Headache associated initially, improved with timolol and steroid eye drops as per patient Plan: Opthalmology consult Continue timolol eye drops for IOP control Inflammatory arthritis 07/03/201701/24 Abdominal pain 07/17/2016 01/29/2017 Abdominal wall seroma 07/09/20162016 documented as of this encounter (statuses as of 08/05/2023) [facility] History of Past illness Narrative* Problem Noted Date Diagnosed Date Resolved Date Acute urinary retention 01/01/2023 07/0 09/2022 Last Assessment & Plan: Assessment: Developed urinary retention s/p blackmon removal 12/31. Requiring straight cath and subsequent blackmon replacement. Plan: - Flomax - Continue blackmon catheter today Recurrent ventral hernia 12/30/202209/2022 Last Assessment & Plan: Assessment: S/p mesh excision and bilateral TAR and ventral hernia repair with mesh placement with Dr. Crane 12/30. Plan: - Continue routine postoperative care - SCD's while in bed - BERHANE drains to bulb suction - IS 10 breaths q1h - Encourage ambulation and OOB TC for meal times 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/23/2017 8 [place] 07/04/2017 07/06/2017 Overview: Bilateral conjunctival redness Decreased vision, 20/200 on snellen chart Describes it as blotches on the chart Headache associated initially, improved with timolol and steroid eye drops as per patient Plan: Opthalmology consult Continue timolol eye drops for IOP control Inflammatory arthritis 07/03/201701/24 Abdominal pain 07/17/2016 01/29/2017 Abdominal wall seroma 07/09/20162016 documented as of this encounter (statuses as of 08/26/2023) [facility] History of Past illness Narrative* Problem Noted Date Diagnosed Date Resolved Date Acute urinary retention 01/01/2023 07/0 09/2022 Last Assessment & Plan: Assessment: Developed urinary retention s/p blackmon removal 12/31. Requiring straight cath and subsequent blackmon replacement. Plan: - Flomax - Continue blackmon catheter today Recurrent ventral hernia 12/30/202209/2022 Last Assessment & Plan: Assessment: S/p mesh excision and bilateral TAR and ventral hernia repair with mesh placement with Dr. Crane 12/30. Plan: - Continue routine postoperative care - SCD's while in bed - BERHANE drains to bulb suction - IS 10 breaths q1h - Encourage ambulation and OOB TC for meal times 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/23/2017 8 [place] 07/04/2017 07/06/2017 Overview: Bilateral conjunctival redness Decreased vision, 20/200 on snellen chart Describes it as blotches on the chart Headache associated initially, improved with timolol and steroid eye drops as per patient Plan: Opthalmology consult Continue timolol eye drops for IOP control Inflammatory arthritis 07/03/201701/24 Abdominal pain 07/17/2016 01/29/2017 Abdominal wall seroma 07/09/20162016 documented as of this encounter (statuses as of 09/23/2023) [facility] NoteHNO ID: [id number] Author: Nicki Renae RN Service: ? Author Type: Registered Nurse Type: Nursing Progress Note Filed: 12/31/2022 6:30 PM Note Text: No respond from previous message. Paged [phone].[facility] 12-31-2022 NoteHNO ID: [id number] Author: Nicki Renae RN Service: ? Author Type: Registered Nurse Type: Nursing Progress Note Filed: 12/31/2022 1:11 PM Note Text: Paged [id number] that pt c/o itching all over. No distress noted.[facility] NoteHNO ID: [id number] Author: Nicki Renae RN Service: ? Author Type: Registered Nurse Type: Nursing Progress Note Filed: 12/31/2022 11:24 AM Note Text: Blackmon removed as ordered, pt tolerated.[place] [facility] Note [facility] History and physical note* Leif Bertrand IRISH.PRODUCTION TECHNOLOGIST - 12/16/2022 10:40 AM EDT Images from the original note were not included. HISTORY AND PHYSICAL EXAMINATION SERVICE DATE: 12/16/2022 SERVICE TIME: 6:44 PM PRIMARY CARE PHYSICIAN: Holland Bowers MD, DO REASON FOR VISIT: Yari Daily is a 57 year old female who is scheduled for Procedure(s): COMPLEX REPAIR WOUND OF ABDOMEN 2.6 CM TO 7.5 CM (Pending) REMOVAL OF PROSTHETIC MATERIAL OR MESH ABDOMINAL WALL FOR INFECTION (Pending) at the request of Dr.Lucas Geovany Crane MD for consultation. My final recommendation will be communicated back to the requesting physician by way of shared medical record or letter. Subjective The patient has the following: ACTIVE PROBLEM LIST Copd (Chronic Obstructive Pulmonary Disease) (Hcc) Gage (Obstructive Sleep Apnea) Hypothyroid Edema Obesity, Class III, BMI >= 40 (morbid obesity) E66.01 Abdominal Wall Seroma Postoperative Seroma of Subcutaneous Tissue After Non-Dermatologic Procedure Arthritis Pain in Joint, Multiple Sites History of Uveitis Keratoderma Gastric Perforation (Hcc) On Total Parenteral Nutrition (Tpn) Dehydration Obesity, Class I, Bmi 30-34.9 Mild Protein-Calorie Malnutrition (Hcc) Gastric Leak Recurrent Incisional Hernia History of Non-St Elevation Myocardial Infarction (Nstemi) Former Smoker Hyperlipidemia Gastroesophageal Reflux Disease Without Esophagitis Jennifer's Disease (Hcc) Essential Hypertension History of Coronary Vasospasm Svt (Supraventricular Tachycardia) ([facility]) COVID-19 Immunization Status COVID-19 VACCINE (Series Information) Completed 04/20/2022 Imm Admin: COVID-19 booster vaccine, age 12+ yr, bivalent (PFIZER-BIONTECH) 05/06/2021 Imm Admin: COVID-19 original vaccine, age 12+ yr, monovalent (PFIZER- BIONTECH - PURPLE TOP) 10/08/2020 Imm Admin: COVID-19 original vaccine, age 12+ yr, monovalent (PFIZER- BIONTECH - PURPLE TOP) Only the first 3 history entries have been loaded, but more history exists. Patient reports being fully vaccinated against COVID-19. Patient reports a prior COVID-19 infection, with an infection date of 2019. CHIEF COMPLAINT: Pre-Op Visit HPI: 57 year old female who has Incisional hernia and Infected hernioplasty mesh that has been present since the last several years seen for PACC. PMH of lap sleeve gastrectomy in October 2020. She states having stabbing pain in the abdomen at hernia area. Scheduled for COMPLEX REPAIR WOUND OF ABDOMEN 2.6 CM TO 7.5 CM REMOVAL OF PROSTHETIC MATERIAL OR MESH ABDOMINAL WALL FOR INFECTION on 12/30/22. Denies any fever, chills, nausea, vomiting, SOB, dizziness, lightheadedness, palpitations, syncope, chest pain or abdominal pain. She has elected to proceed with the surgical procedure. REVIEW OF SYSTEMS: General: No weight loss, malaise or fevers. Neurological: No history of TIA's, stroke, OIM CONSULTANT tumor, impaired sensorium, hemiplegia, paraplegia orquadraplegia. No neurological symptoms or problems. Negative for: seizures, TIA and strokes. Respiratory: Positive for: asthma (Before weight loss and gastric surgery), COPD, prior COVID-19 infection, tobacco use (Former smoker 15 yrs 1/2 PPD Quit 25 years ago), obstructive sleep apnea and CPAP/BiPAP noncompliant. Date of COVID-19 infection: 2019. Negative for: current cough, dyspnea, pneumonia within 6 weeks and URI < 2 weeks. Cardiovascular: Positive for: anticoagulation therapy (low dose ASA), arrhythmia (SVT 2-3 weeks ago), CAD (H/O NSTEMI), hyperlipidemia and hypertension Patient's last office visit with temperature regulator pyrometer, Eileen Sinha NP, was 11/25/22. The following tests and/or procedures were performed: cardiac catheterization (09/17/22 no blockage), cardiac stress test (04/24/2016) and echocardiogram (09/2020 EF 60%). The following tests and/or procedures were not performed: cardiac stents. Negative for: AICD/PPM, chest pain, CHF, DVT/PE and recent KS. GI: See HPI. Positive for: abdominal pain and GERD Negative for: colon cancer, diverticulitis, hepatitis, liver disease, pancreatitis, history of polyps and rectal cancer. : No history of dysuria, frequency or incontinence, stones or chronic kidney disease. No difficulty urinating, nocturia > 1 time per night or hematuria. YACHT HAND: Negative for abnormal vaginal bleeding, abnormal vaginal discharge. Endocrine: Positive for: hypothyroidism. Negative for: diabetes mellitus. Hematology: No history of bleeding or clotting disorder. Patient is not taking anti-coagulation or platelet medications. No history of hematological symptoms or problems. Oncology: No history of CA metastasis, chemo within 30 days, or radiotherapy within 90 days. No history of oncological symptoms or problems. Psych: No history of psychiatric symptoms or problems. Musculoskeletal: + arthritis Skin: Negative for lesions, rash and itching. 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 SVT (supraventricular tachycardia) ([facility]) 12/17/2022 PAST SURGICAL HISTORY Procedure Laterality Date EGD W/O BRSH SPEC VARICIES INJ EVACUATION OF SEROMA 05/2016 HYSTERECTOMY HX 1999 LAMINECTOMY W/O FFD 1/2 VERT SEG LUMBAR MIDLINE INSERTION/CONSULT 12/15/2021 PAST SURGICAL HISTORY OF Left elbow surgery PAST SURGICAL HISTORY OF hernia - multiple PAST SURGICAL HISTORY OF c section X2 PAST SURGICAL HISTORY OF gallbladder PAST SURGICAL HISTORY OF tummy tuck REDUCTION OF LARGE BREAST TONSILLECTOMY HX as a child TUBAL LIGATION HX 03/2001 FAMILY HISTORY Problem Relation Age of Onset Diabetes Mother of COPD Ischemic Heart Disease Mother 55 Angioplasty other (Myocardial infarction) Father 35 of COPD and dementia 79 Glaucoma Maternal Aunt Anesthesia Problems No Family History Social History Tobacco Use Smoking status: Former Packs/day: 0.50 Years: 5.00 Pack years: 2.50 Types: Cigarettes Quit date: 04/13/1998 Years since quittin.6 Smokeless tobacco: Never Substance Use Topics Alcohol use: Not Currently Comment: none in a year as of 02/2022. Drug use: No Comment: denies tx for drug/alcohol abuse in the past. Prior to Admission medications as of 12/16/22 1101 Medication Sig Last Dose Taking metoprolol succinate ER (TOPROL XL) 25 mg 24 hr tablet Takes 1/2 tablet Taking Yes aspirin 81 mg chewable tablet Aspirin (Children's Aspirin) 81 mg Tablet,Chewable Active 81 MG PO Daily September 18, 2022 12:00am Taking Yes pravastatin (PRAVACHOL) 20 mg tablet Taking Yes multivit-min/iron/folic acid/K (BARIATRIC MULTIVITAMINS ORAL) Taking Yes FAMOTIDINE ORAL Take by mouth. Taking Yes levothyroxine (SYNTHROID) 88 mcg tablet Take 100 mcg by mouth once daily. Taking Yes DODEX 1,000 mcg/mL inject 1 milliliter ( 1000 MCG ) intramuscularly EVERY 3 MONTHS VITAMIN D 25 mcg (1,000 unit) cap take 1 capsule by mouth once daily sblelvdn-fca-cylv-folic-vit K (CENTRUM) 8 mg-400 mcg- 10 mcg chewable tablet Take 1 tablet by mouthonce daily. calcium carbonate (TUMS) 500 mg chew Take 2 tablets by mouth twice daily. ondansetron orally disintegrating (ZOFRAN ODT) 4 mg disintegrating tablet Take 1 tablet by mouth every 6 hours. nystatin (MYCOSTATIN) 100,000 unit/mL suspension take 5 milliliters by mouth four times a day for 7days enoxaparin (LOVENOX) 40 mg/0.4 mL Inject 0.4 mL subcutaneously every 12 hours albuterol HFA (PROAIR HFA) 90 mcg/actuation inhaler 2 Puffs every 4 hours as needed. Take as directed Insulin [place], Disposable, (BD ULTRA-FINE ABI PEN NEEDLE) 32 gauge x 5/32 ndle Use as directed with 1 subcutaneous injection daily. No medication comments found. ALLERGIES Allergen Reactions Codeine Anaphylaxis Keflex [Cephalexin] Hives, Other: See Comments Peeling of skin. Has received multiple courses of piperacillin/tazobactam without noted reaction inpatient. Objective PHYSICAL EXAM: General: alert and oriented and healthy appearance. Skin: normal color, no rash or lesions. HEENT: pupils equal round and pupils reactive to light. Cardiovascular: regular rate and rhythm, normal S1 and S2, no rub, murmurs, or gallop. Respiratory: normal breath sounds, no wheezes or crackles. No chest wall deformity or tenderness. Abdomen: bowel sounds present and soft. Extremities: no deformity, no edema or tenderness, no joint swelling or clubbing. Neurological: normal cognition and motor skills. Gait normal. No weakness or sensory deficit. PAIN ASSESSMENT: Pain Pain Level: 3 Pain Location: Abdomen Description: Sharp Duration Units: Months Frequency: Intermittent VITALS: BP 132/73 Pulse 68 Temp (Src) 97.2 (Temporal) Ht 5' 3 (1.60m) Wt 139 lb 9.6 oz (63.3kg) SpO2 98% BMI 24.74 kg/(m^2). Diagnostic tests reviewed for today's visit: Lab Value Units Date High Low HB 13.1 g/dL 12/16/2022 15.5 11.5 HCT 41.9 % 12/16/2022 46.0 36.0 WBC 8.45 k/uL 12/16/2022 11.00 3.70 PLT 226 k/uL 12/16/2022 400 150 NA 142 mmol/L 12/16/2022 144 136 K 4.2 mmol/L 12/16/2022 5.1 3.7 GLUC 83 mg/dL 12/16/2022 99 74 BUN 21 mg/dL 12/16/2022 21 7 CREAT 0.64 mg/dL 12/16/2022 0.96 0.58 PTSEC 10.2 sec 12/16/2022 13.0 9.7 INR 1.0 no uni* 12/16/2022 1.3 0.9 APTT 24.7 sec 12/16/2022 32.4 23.0 ALT 62 U/L 12/16/2022 38 7 AST 34 U/L 12/16/2022 35 13 TBILI 0.4 mg/dL 12/16/2022 1.3 0.2 TSH No results within date range. Lab Value Units Date High Low HCGQT No results within date range. UHCG No results within date range. HCG, BODY* No results within date range. Lab Value Units Date High Low ABORHD No results within date range. ABSCREEN No results within date range. Hemoglobin A1C (%) Date Value 01/06/2018 6.0 Recent Results (from the past 8760 hour(s)) ECG COMPLETE Collection Time: 12/16/22 11:50 AM Result Value Ventricular Rate 48 Atrial Rate 48 P-R Interval 148 QRS Duration 100 QT Interval 476 QTC Calculation (Bazett) 425 Calculated P Schulenburg 63 Calculated R Schulenburg 30 Calculated T Schulenburg 46 Impression SINUS BRADYCARDIA OTHERWISE NORMAL ECG No results found for this or any previous visit (from the past 02583 hour(s)). 09/18/2015 Stress Test INDICATIONS: CHEST PRESSURE/CHEST TIGHTNESS, COELLO OR DYSPNEA, ENCOUNTER FOR OTHER PREPROCEDURAL EXAMINATION OR PRE OP EXAM, SLEEP APNEA. COMORBIDITIES/CURRENT SYMPTOMS: HYPOTHYROIDISM, OBESITY, SMOKE: EXSMOKER: => 10 YRS, HYPERTENSION, FAMILY HISTORY OF CAD: YES. DIAGNOSES: CHEST PRESSURE/CHEST TIGHTNESS, COELLO OR DYSPNEA. PROCEDURES: NONE. MEDICATIONS(LAST DOSE): LEVOTHYROXINE(14H), ALDACTONE(2D), LASIX(2D), ALBUTEROL INHALER(12H). RESTING ECG: NORMAL SINUS RHYTHM, ANT T WAVE INVERSION. OBSERVATION: 1. THE TEST WAS TERMINATED DUE TO END OF PROTOCOL. 5. NORMAL ST SEGMENT RESPONSE TO STRESS. 7. ANGINA WAS NOT PROVOKED BY STRESS. 8. NO ARRHYTHMIAS WERE NOTED AT REST OR DURING STRESS. CONCLUSION: NORMAL. 09/12/2020 ECHO Left Ventricle: Systolic function is normal with an ejection fraction of 55-60%. Left Ventricle: There is mild concentric increased wall thickness/hypertrophy. No obvious valvular disease noted. Technically difficult study. Left Ventricle Left ventricle was not well visualized. There is mild concentric increased wall thickness/hypertrophy. Systolic function is normal with an ejection fraction of 55-60%. No obvious regional wall motionabnormalities. Normal diastolic function is present. Lateral E' is 9.9 cm/s. Medial E' is 7.9 cm/s. Right Ventricle Right ventricle was not well visualized. Unable to assess right ventricular systolic function due to poor image quality. Left Atrium Left atrium is normal in size. Left atrium volume index is normal. The left atrial volume index is 25.0 mL/m2. Right Atrium Right atrium was not well visualized. IVC/SVC IVC is not well visualized. Mitral Valve The mitral valve was not well visualized. There is trace regurgitation. There is no evidence of mitral valve stenosis. Tricuspid Valve The tricuspid valve was not well visualized. There is trace regurgitation. There is no evidence of tricuspid valve stenosis. Aortic Valve The aortic valve was not well visualized. There is mild sclerosis. There is no regurgitation or stenosis. Pulmonic Valve The pulmonic valve was not well visualized. There is no evidence of pulmonic valve stenosis. Ascending Aorta The aortic root is normal in size. Pericardium Pericardium was not well visualized. Cardiac Cath 3/16/23 Assessment There is no known pertinent medical condition which may affect dillan-operative course Hypothyroid Managed with levothyroxine (SYNTHROID) Followed by PCP GAGE (obstructive sleep apnea) Patient reports no longer used since weight loss and gastric surgery, over 300 pounds She has not been retested, instructed to follow up with her PCP COPD (chronic obstructive pulmonary disease) ([facility]) Patient states stable and controlled since weight loss Followed by PCP No inhalers used History of non-ST elevation myocardial infarction (NSTEMI) Heart cath without blockages, started ASA No stents Noted Stress 2018 without convincing ischemia Former smoker Patient reports Former smoker 15 yrs 1/2 PPD Quit 25 years ago Hyperlipidemia Managed with atorvastatin (LIPITOR) Followed by PCP Gastroesophageal reflux disease without esophagitis Managed with Followed by PCP 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 Essential hypertension Managed with metoprolol succinate XL (TOPROL-XL) spironolactone (ALDACTONE) and amLODIPine (NORVASC) BP this visit Patient reports History of coronary vasospasm LHC performed 09/17/22 started on medical treatment Metoprolol, Amlodipine, Atorvastin and ASA Alfaro Activity Status Index: METS: Walk indoors, such as around the house (1.75 METs) Do light work around the house, such as dusting or washing dishes (2.70 METs) Take care of self; that is eating, dressing, bathing, using the toilet (2.75 METs) Walk a block or two on level ground (2.75 METs) Do moderate work around the house, such as vacuuming, sweeping floors, or carrying in groceries (3.50 METs) Do yardwork, such as raking leaves, weeding, or pushing a power mower (4.50 METs) Climb a flight of stairs or walk up a hill (5.50 METs) DASI Score: 23.45 Patient denies any chest pain or undue shortness of breath with the above physical activity. STOP-Bang Score: Has or is being treated for high blood pressure Patient over 50 years old Denies snoring loudly Denies feeling tired, fatigued, or sleepy during the daytime Has not been observed to stop breathing or choking/gasping during sleep BMI less than or equal to 35 kg/m^2 Non-male patient STOP-Bang Score: 2 (Patient states no longer uses CPAP after gastric surgery and 300 pound weight loss) [id number] Score: Hypertension history: Yes [id number] Score: 1 ASA Class: 3 ANESTHESIA FINDINGS: Intubation History: No history of difficult intubation. No abnormal airway history Significant Anesthesia Considerations: none Airway History: No history of difficult airway No abnormal airway history I - PHYSICAL EVALUATION AIRWAY Patient intubated: No. Tracheostomy tube not present Mallampati: II. TM distance: >3 FB. Neck ROM: full ROM without neurological symptoms. Mouth opening: adequate. Short neck: no. Thick neck: no Peterson present: no Lip Bite Test: I DENTAL Dental findings: teeth intact. Additional comments: [place] lower unsure of location . II - ANESTHESIA PLAN ASA Score: 3 Anesthetic Plan: other Anesthetic plan additional comments: *PACC/TCI - anesthesia choice. Beta Feliz Monitoring Plan Post Procedure Analgesic Plan Prepared for Surgery: optimally prepared for surgery, pending [see comment]. CBC, CMP, type and screen, EKG (ordered by surgery) and DOS exam CONSULTS: Patient does not require consults for optimization at this time Planned Anesthetic: other anesthesia choice The Following Tests/Procedures Have Been Initiated: Orders Placed This Encounter metoprolol succinate ER (TOPROL XL) 25 mg 24 hr tablet Sig: Takes 1/2 tablet aspirin 81 mg chewable tablet Sig: Aspirin (Children's Aspirin) 81 mg Tablet,Chewable Active 81 MG PO Daily 90 90 September 18, 2022 12:00am pravastatin (PRAVACHOL) 20 mg tablet multivit-min/iron/folic acid/K (BARIATRIC MULTIVITAMINS ORAL) FAMOTIDINE ORAL Sig: Take by mouth. Instructions Given to Patient: Instructions located in the after visit summary. Patient given verbal and written preop instructions and voices comprehension and compliance. SIGNATURE: Leif Bertrand APRN.CNP PATIENT NAME: Yari Daily DATE: December 16, 2022 TIME: 5:40 AM PAGER/CONTACT #: documented in this encounterShel[facility]06-14-[facility]23 Instructions* Patient Instructions* Leif Bertrand APRN.CNP - 12/16/2022 10:24 AM EDT PATIENT PREOPERATIVE INSTRUCTIONS Connie Crane* has scheduled you for your procedure at this surgery center: [facility] Scheduling Office: [phone] --[address] [place] [address]. Please read below carefully for your personalized instructions. Dietary Restrictions: - No solid food after midnight. - You may have 12 ounces of clear liquids (water, clear juices such as apple juice or gatorade, carbonated beverages, clear tea, black coffee, jello) until 2 hours before scheduled arrival at facility. Is Patient Diabetic:No Medications: Unless instructed differently below, stay on all of your medications until your surgery. Approved medications to take the morning of surgery with a sip of water: levothyroxine (SYNTHROID) FAMOTIDINE If you start any new medications after today's visit, please contact the surgeon's office. Blood Thinning Medications: - Stop NSAIDS (Ibuprofen, Advil, Aleve, Motrin, Celebrex, Mobic, etc.) 7 days before surgery, as directed by your surgeon. - Stop Aspirin 7 days before surgery, as directed by your surgeon. - Stop Vitamin E, ALL multi-vitamins, herbals and dietary supplements 7 days before surgery. - You may take Tylenol (Acetaminophen) or any of your pain medications that do not contain aspirin or NSAIDS as needed. Important Reminders: - If you use CPAP/BIPAP, bring the machine with you to the surgery center. - If you are prescribed inhalers for breathing, continue using them. - Candy, mints, and tobacco products are NOT permitted the morning of surgery. - Hearing aids, dentures and glasses may be worn the morning of surgery. - NO jewelry, body piercings, makeup, hairpins or contacts are to be worn the day of surgery. If you develop symptoms such as a fever, cold, or flu, or have other changes to your health within TWO DAYS of scheduled surgery or the morning of surgery, please contact the surgery center above. Personal Belongings: -Please have photo ID and insurance cards. -If you do not have a copy of advance directives on file with us, please bring a copy with you on the day of surgery. - Leave ALL valuables and money at home or with family members. Arrival Time for Surgery: - To obtain your arrival time for surgery, call your physician's office the day before your surgery. - If your surgery is scheduled for Wednesday, call the Wednesday before. Your surgeon s enterprise application administrator will tell you what time to call the office. - If you have not reached the departmental enterprise application administrator by 5 P.M., call [phone] after 5 P.M. the day before your surgery. Please be aware that emergency situations arise, which may delay or change your surgical time. If this happens, we will notify you as soon as possible and regret any inconvenience. If you already have an Advance Directive, please fax a copy to [phone] or email to for it to be added to your chart. If you do not have an Advance Directive, you can find the appropriate form and more information at [email or web address]. We recommend that youcomplete the Advance Directive form found on the website and bring it with you the day of your surgery. It can be witnessed and scanned into your chart that day. Leif Bertrand APRN.CNP documented in this encounterSheltering [facility] Hospital05-22-2023 [facility] NoteL[facility] History of Present illness Narrative* Sylvia Diaz, RT(R) - 09/29/2022 2:35 PM EDT Radiology Service Progress Note PATIENT NAME: Yari Daily DATE OF SERVICE: September 29, 2022 TIME: 2:35 PM PATIENT IDENTITY VERIFICATION COMPLETED USING TWO (2) IDENTIFIERS: Name and Date of confirmedby patient verbally. FALL SCREENING: Has the patient had 2 falls in the last year or 1 fall with injury or currently using an Ambulatory Assistive Device (Walker, Cane, Wheelchair, Crutches, etc.)? No PATIENT GENDER DATA: Female. status: : No status: NO. PATIENT RELEVANT IMPLANT DATA REVIEWED: Not Applicable RADIOLOGY DEPARTMENT: CT; Exam(s) Completed: Abdomen/Pelvis PERIPHERAL IV DATA: Not applicable SIGNED BY: RT Mariia(R) September 29, 2022 2:35 PM documented in this encounterSheltering Arms Hospital03-20-2023 History of Present illness Narrative* Connie Crane MD - 09/21/2022 9:22 AM EDT Consultation requested by Dr. Holland Bowers for an opinion regarding recurrent incisional hernia. My final recommendations will be communicated back to the requesting physician by way of shared medical record or letter via US mail. Yari Daily is a 57 year old female who presents with a recurrent incisional hernia. She has had3 previous Lap ventral hernia repairs in the past (2007, 2011, 2013). She recently had a chronic subcutaneous seroma opened and excised by Dr. Marks. 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 Carter. She is about 6 months out from that. She is well healed, no issues, tolerating diet without difficulty. She has a large upper midline recurrence of the hernia, plus a large protracted lower midline scar over the previous mesh contstructs in the lower abdomen. I would recommend doing this open for scar excision, removal of previous mesh, and AWR. She agrees. I have seen and evaluated the patient and discussed the case with the resident physician. I agree with the assessment and plan as documented in the resident s note including a ROS that was reviewed and negative other than what was indicated in our notes. Patient consented for study? No: Surgeon preference - need for scar excision * Mary Pena MD - 09/21/2022 8:47 AM EDT [facility] Abdominal [facility] - HISTORY AND PHYSICAL Chief Complaint : ventral hernia HPI: Yari Daily is a 57 year old female who presents with incisional hernia, long surgical history as outlined below. Eating by mouth now without any weight fluctuations since May 2022. The past 2 years before reliant on tube feeds. She is here to discuss upper abdominal bulge that causes her pain, around 5/10 in severity. Does not interfere with eating. No obstructive episodes. Relevant previous operations include: 02/2022 - laparoscopic proximal gastric fistula takedown, partial gastrectomy, EJ reconstruction with RY (Dr. Campbell Tristan) 10/2020 - lap sleeve gastrectomy c/b leak ([facility]) 2016 - resection of seroma capsule, wound vac (Dr. 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 [employer] Sporadic (once/month) Anti-platelet medications ASA 81mg daily History of component separation, History of open abdomen, History of abdominal wall surgical site infection, History of a previous wall surgical site infection PAST MEDICAL HISTORY Diagnosis Date Arthritis Asthma COPD (chronic obstructive pulmonary disease) (HCC) COELLO (dyspnea on exertion) Edema Family history of early CAD History of smoking History of transfusion Hypothyroid Obesity Orthopnea BiPAP GAGE (obstructive sleep apnea) PAST SURGICAL HISTORY Procedure Laterality Date EGD W/O BRSH SPEC VARICIES INJ EVACUATION OF SEROMA 05/2016 HYSTERECTOMY HX 1999 LAMINECTOMY W/O FFD /2 VERT SEG LUMBAR MIDLINE INSERTION/CONSULT 12/15/2021 PAST SURGICAL HISTORY OF Left elbow surgery PAST SURGICAL HISTORY OF hernia - multiple PAST SURGICAL HISTORY OF c section X2 PAST SURGICAL HISTORY OF gallbladder PAST SURGICAL HISTORY OF tummy tuck REDUCTION OF LARGE BREAST TONSILLECTOMY HX as a child TUBAL LIGATION HX 03/2001 Social History Tobacco Use Smoking status: Former Packs/day: 0.50 Years: 5.00 Pack years: 2.50 Types: Cigarettes Quit date: 04/13/1998 Years since quittin.4 Smokeless tobacco: Never Substance Use Topics Alcohol use: Not Currently Comment: none in a year as of 02/2022. Drug use: No Comment: denies tx for drug/alcohol abuse in the past. Additional social history not relevant to the patient's HPI FAMILY HISTORY Problem Relation Age of Onset Diabetes Mother of COPD Ischemic Heart Disease Mother 55 Angioplasty other (Myocardial infarction) Father 35 of COPD and dementia 79 Glaucoma Maternal Aunt Anesthesia Problems No Family History Additional family history not relevant to the patient's HPI ALLERGIES Allergen Reactions Codeine Anaphylaxis Keflex [Cephalexin] Hives, Other: See Comments Peeling of skin. Has received multiple courses of piperacillin/tazobactam without noted reaction inpatient. Current Outpatient Medications Medication Sig Dispense Refill ondansetron (ZOFRAN) 4 mg tablet Take 1 tablet by mouth every 8 hours as needed for nausea/vomiting(for nausea.). 90 tablet 0 VITAMIN D 25 mcg (1,000 unit) cap take 1 capsule by mouth once daily 60 capsule 0 bmtwhkgv-voa-lups-folic-vit K (CENTRUM) 8 mg-400 mcg- 10 mcg chewable tablet Take 1 tablet by mouthonce daily. 90 tablet 3 calcium carbonate (TUMS) 500 mg chew Take 2 tablets by mouth twice daily. 60 tablet 0 cyanocobalamin 1,000 mcg/mL Inject 1 mL intramuscularly every 3 months. 1 mL 2 ondansetron orally disintegrating (ZOFRAN ODT) 4 mg disintegrating tablet Take 1 tablet by mouth every 6 hours. 20 tablet 0 nystatin (MYCOSTATIN) 100,000 unit/mL suspension take 5 milliliters by mouth four times a day for 7days enoxaparin (LOVENOX) 40 mg/0.4 mL Inject 0.4 mL subcutaneously every 12 hours 10 Each 0 levothyroxine (SYNTHROID) 88 mcg tablet Take 88 mcg by mouth once daily. albuterol HFA (PROAIR HFA) 90 mcg/actuation inhaler 2 Puffs every 4 hours as needed. Take as directed 1 Inhaler 3 Insulin [place], Disposable, (BD ULTRA-FINE ABI PEN NEEDLE) 32 gauge x 5/32 ndle Use as directed with 1 subcutaneous injection daily. 100 Each 3 No current facility-administered medications for this visit. REVIEW OF SYSTEMS The remainder of the 12 review of systems is negative other than what was mentioned in the HPI and above. BP 117/64 Pulse (!) 57 Temp 36.6 C (97.9 F) (Temporal) Ht 160 cm (5' 3 ) Wt 59 kg (130 lb) BMI 23.03 kg/m Physical findings of this patient are as follows (COMPLETE 10 INCLUDING HEART AND LUNG EXAM OR CHOOSE NORMAL EXAM IF APPROPRIATE): Physical Exam Physical Exam Constitutional: The patient is well-developed, well-nourished, and in no distress. Head: Normocephalic and atraumatic. Eyes: Pupils are equal, round, and reactive to light. EOM are normal. Neck: Normal range of motion. Neck supple. Cardiovascular: Regular rhythm and normal heart sounds. Pulmonary/Chest: Effort normal and breath sounds normal. Abdominal: Soft. Bowel sounds are normal. Musculoskeletal: Normal range of motion. Neurological: He is alert. GCS score is 15. Skin: Skin is warm and dry. Psychiatric: Affect and judgment normal. Relevant Hernia Findings - upper midline hernia fully reducible while supine LABS: Hemoglobin A1C (%) Date Value 01/06/2018 6.0 IMAGING - Reviewed with staff CT - 12/2021 reviewed US - NA Assessment: Yari Daily is a 57 year old female with complex history of multiple hernia repairs with mesh and lap sleeve gastrectomy c/b fistula s/p lap gastric fistula takedown, partial gastrectomy, EJ reconstruction with RY (02/2022) with incisional upper midline ventral hernia that causes her pain. No obstructive symptoms. Desires repair. Plan: Plan for open abdominal ventral hernia repair with mesh Consented Mary Pena [facility]* Ina Humphrey Ma - 09/21/2022 8:34 AM EDT What is the reason for your visit today? consult Who is your referring physician? Are you having poor oral intake? NO Have you had unintentional weight loss of 15 lbs/7 Kg in the last 3-6 months? NO Bowels: regular Wound: clean & dry Temperature: No Drains: No [facility] Progress note Author Carlos Alberto Jackson [facility] September 18, 2022 9:16am Note Date/Time September 18, 2022 9:1 6am [facility] [address] [place] [address] Cardiology Progress Note Signed Patient: Yari Daily MR#: [id number] : 1965 Acct:[id number] Age/Sex: 57 / F Adm Date: 3 Loc: 4P Room: [id number] Type: ADM INOo Attending Dr: Dorys Sanchez MD Copies to: ~ Date of Service: 09/18/2022 Subjective Principal diagnosis: Type II non-STEMI Interval history: Yari is doing quite well this morning on my evaluation. She has had no chest pain or other anginal symptoms overnight. She had no problems with her right radial access site from yesterday's cardiac catheterization. She is having no untoward side effects from her recently initiated medical therapy directed at coronary vasospasm. She was not able to receive her evening dose of beta-feliz due to resting asymptomatic bradycardia. She has no new complaints or issues at this time and wishes to go home today Exam Physical Exam Vital Signs: Temp Pulse Resp BP Pulse Ox O2 Del Method 97.8 F 63 18 131/87 96 Room Air 09/18/22 08:05 09/18/22 08:05 09/18/22 08:05 09/18/22 08:05 09/18/22 08:05 09/18/22 08:05 Const General: cooperative, healthy appearing, comfortable and no acute distress Nutritional Appearance: average body habitus Orientation: alert, awake and oriented x3 HEENT Head: normocephalic and atraumatic Mouth: moist mucous membranes Teeth and gingiva: fair dentition Eyes Conjunctivae: conjunctivae normal Sclera: sclerae normal Pupils: PERRL and accommodation normal EOM: EOM intact bilaterally Direct ophthalmoscopy: no photophobia Neck Neck: no lymphadenopathy and supple Neck mass: No Thyroid: thyroid normal Carotids: normal carotid upstroke Lymphatic: no lymphadenopathy noted Chest Chest palpation & inspection: normal inspection of the chest and normal palpation of entire chest wall Resp Effort & Inspection: normal respiratory effort and symmetric chest movement Auscultation: clear to auscultation bilaterally Cardio Jugular venous pressure: no JVD Palpation: normal PMI Rate: regular rate Rhythm: regular rhythm Heart Sounds: S1 normal, S2 normal and gallop S4 gallop Pulses: radial pulses present, posterior tibial pulses present and dorsalis pedis present GI Inspection: normal to inspection Palpation: soft and no hepatosplenomegaly Auscultation: normal bowel sounds Skin General: no rashes or lesions noted Trauma: no lacerations or abrasions Wounds: no wounds Neuro General: patient alert, patient awake, patient oriented x3, moves all extremities and no focal motor deficits Cranial Nerves: CN's II-XII intact bilaterally Cognition: normal cognition Speech: speech normal Motor: muscle tone normal throughout Sensory Exam: no sensory deficits noted Extrem General: no clubbing, cyanosis or edema Psych Appearance: grossly normal Mental Status: mental status grossly normal Mood: congruent mood Affect: normal affect Speech and Movement: speech and movement normal Attitude: cooperative Thought Process: normal Thought Content: normal Insight: insight good Judgment: judgment good Objective Labs 09/17/22 09:43 09/17/22 04:44 Labs: Laboratory Results - last 24 hr 09/17/22 09/17/22 09/17/22 09:43 09:43 15:32 Corrected WBC 4.0 Uncorrected WBC Count 4.0 RBC 4.13 Hgb 12.9 Hct 38.3 MCV 92.7 MCH 31.2 MCHC 33.7 RDW 14.0 Plt Count 160 MPV 7.5 Neut % (Auto) 56.8 Lymph % (Auto) 36.2 [place] % (Auto) 5.5 Eos % (Auto) 1.1 Baso % (Auto) 0.4 Nucleat RBC Rel Count 0.0 Neut # (Auto) 2.3 Lymph # (Auto) 1.4 [place] # (Auto) 0.2 Eos # (Auto) 0.0 Baso # (Auto) 0.0 PT 12.0 INR 1.0 APTT 27.4 70.0 H A&P - Cardiology (1) NSTEMI (non-ST elevated myocardial infarction): Assessment/Problem Details: Type II event. No significant coronary heart disease noted on yesterday's cardiac catheterization. No evidence of Takotsubo cardiomyopathy with normal resting left ventricular regional wall motion systolic function and filling pressures based on left ventriculography. Code(s): I21.4 - Non-ST elevation (NSTEMI) myocardial infarction Status: Acute Plan: 1. Patient okay for discharge to home today 2. Aspirin 81 mg daily 3. Amlodipine 2.5 mg p.o. every morning to treat potential coronary vasospasm 4. Pravastatin 20 mg nightly to treat potential small vessel scad 5. Recommend supplementation with co-Q10 300 mg daily with initiation of statintherapy 6. Clinical follow-up in [facility] outpatient clinic within 2 weeks. Enrollment in phase 2 monitored cardiac rehabilitation is strongly recommended. Plan Patient safe and meets criteria for discharge today. Discharge plan as above. Time spent with patient Time Spent With Patient (min): 30 Documented By: Carlos Alberto Jackson MD 09/18/22911 Signed By: <Electronically signed by Carlos Alberto Jackson MD> 09/18/22915 [facility] Work Phone: 1(780) 804-430003-17-2023 Hospital Discharge instructions Additional Instructions DISCHARGE INSTRUCTIONS FOR CARDIAC NETSUITE CONSULTANT PHONE NUMBER OF YOUR PHYSICIAN: [phone] PROCEDURE: Heart Cath The following instructions have been prepared to help you care for yourself, or be cared for upon your return home. 1. You were given conscious sedation. Do not operate a vehicle, power tools, make important decisions, or drink alcohol for 24 hours. You might be drowsy or light headed. Return to the Emergency Room if you have trouble breathing, walking or nausea and vomiting. 2. FOR BLEEDING: Apply continuous pressure to the site and call 911. 3. Operative Site Care: Keep the dressing clean and dry. You may change the dressing only if soiled or wet. You may remove the dressing the following morning. You may wash over the puncture site in the shower. If the puncture site is at the wrist no soaking for 3 days. Some bruising or slight swelling may be present. -Signs of infection are redness, warmth, swelling, getting more sore, colored drainage, fever or chills. -Should the arm or leg become cold, numb, blue or white, call the temperature regulator pyrometer immediately. 4. ACTIVITY: You are advised to go directly home from the hospital. Restrict your activities for the rest of the day. Resume light or normal activities tomorrow. Do not engage in any activity that will stress the puncture site. Avoid heavy lifting (over 15 lbs.), straining or bending at the catheter site for 48 hours after discharge. If the puncture site is at the wrist do not manipulate wrist for 24 hours and no lifting more than 3 lbs for 3 days. 5. DIET:You may eat your regular diet when you desire. 6. MEDICATIONS: Resume your daily prescription schedule. Prescriptions may be sent with you if needed. Use as directed. When taking pain medications, you may experience dizziness or drowsiness. Do not drink alcohol or drive when taking pain medications. 7. If you should experience episodes of angina e.g. chest discomfort, heaviness, tightness, pressure, burning, with or without radiation to the neck, jaws, arms, or back- Use 1 Nitrostat under your tongue every 5-10 minutes, and up to 3 tablets. If no relief- Call 911 and go to the nearest Emergency Room. -Notify the office for recurrent angina, chest pain or other concerns. You may NOT drive yourself home! Follow the medication instructions provided on your discharge. If the dosages and instructions on this sheet differ from the dosage and instructions on the bottle, follow the instructions on the bottle. [facility] is not responsible for incorrect prescription information provided by the patient during their visit. Do not stop your medications without consulting your health care provider. Please take the list with you to your next doctor's appointment.[facility] Work Phone: [phone]) 143-692103-16-2023 Progress note Author Dorys Sanchez [facility] September 17, 2022 3:18pm Note Date/Time September 17, 2022 3:1 8pm [facility] [address] [place] [address] Hospitalist Progress Note Signed Patient: Yari Daily MR#: [id number] : 1965 Acct:[id number] Age/Sex: 57 / F Adm Date: 3 Loc: Room: [address] [place] [address] Type: ADM INOo Attending Dr: Dorys Sanchez MD Copies to: ~ Date of Service: 09/17/2022 Subjective Subjective Narrative: Patient examined at bedside and currently denies having chest pain. She was transferred from outside facility for chest pain and elevated troponin last night. She denies prior history of coronary artery disease. Underwent cardiac catheterization which showed coronary vasospasm with normal LV function. Exam Physical Exam Vital Signs: Temp Pulse Resp BP Pulse Ox O2 Del Method 97.5 F L 61 20 121/83 98 Room Air 09/17/22 12:00 09/17/22 13:16 09/17/22 13:16 09/17/22 13:16 09/17/22 13:16 09/17/22 13:16 Const Orientation: alert, awake and oriented x3 Resp Effort & Inspection: normal respiratory effort and able to speak in complete sentences Auscultation: no rales, no rhonchi and no wheezes Cardio Rate: regular rate Rhythm: regular rhythm Heart Sounds: S1 normal and S2 normal GI Palpation: soft, not firm, no guarding and nontender Neuro General: patient alert, patient awake, patient oriented x3, moves all extremities and no focal motor deficits Extrem General: no clubbing, cyanosis or edema and no calf tenderness Objective Lab Results 09/17/22 09:43 09/17/22 04:44 Meds Allergies and Active Meds Allergies cephalexin [From Keflex] Allergy (Verified 06/29/19 10:43) skin peeled codeine Allergy (Verified 06/29/19 10:43) Difficulty Breathing sulfamethoxazole [From Bactrim] Allergy (Verified 07/13/19 09:01) Rash trimethoprim [From Bactrim] Allergy (Verified 07/13/19 09:01) Rash Active Meds: Active Medications Generic Name Dose Route Start Last Admin Trade Name Freq PRN Reason Stop Dose Admin Acetaminophen 650 mg 09/16/22 22:16 Acetaminophen 325 Mg Tablet PO 09/16/23 22:15 Q6H PRN Pain 1-5 or fever Amlodipine Besylate 2.5 mg 09/17/22 12:30 Amlodipine 2.5 Mg Tablet PO 09/17/23 12:29 DAILY ALYSE Aspirin 81 mg 09/17/22 09:00 09/17/22 09:25 Aspirin 81 Mg Tab.Chew PO 09/17/23 08:59 81 mg DAILY ALYSE Administration Atorvastatin Calcium 10 mg 09/17/22 12:30 Atorvastatin 10 Mg Tablet PO 09/17/23 12:29 QPM ALYSE Sodium Chloride 1,000 mls @ 100 mls/hr 09/17/22 09:15 0.9% Sodium Chloride 1,000 Ml IV 09/17/23 09:14 .Q10H ALYSE Sodium Chloride 1,000 mls @ 100 mls/hr 09/17/22 12:30 0.9% Sodium Chloride 1,000 Ml IV 09/17/23 12:29 .Q10H ALYSE Levothyroxine Sodium 100 mcg 09/17/22 06:30 09/17/22 06:24 Levothyroxine 100 Mcg Tablet PO 09/17/23 06:29 100 mcg DAILY@0630 ALYSE Administration Metoprolol Succinate 12.5 mg 09/17/22 21:00 Metoprolol Succinate 25 Mg Tab.Er.24h PO 09/17/23 20:59 QPM ALYSE Miscellaneous Information 1 each 09/17/22 12:28 Consult To Pharmacy MISCELLANE 09/17/23 12:27 .PHACONSULT PRN ZZ.Pharmacy Consult Protocol Multivitamins 1 tab 09/17/22 09:00 09/17/22 09:25 Multivitamin 1 Tab Tablet PO 09/17/23 08:59 1 tab DAILY ALYSE Administration Nitroglycerin 0.4 mg 09/16/22 22:16 Nitroglycerin 0.4 Mg Tab.Subl SUBLINGUAL Q5M PRN Chest Pain Potassium Chloride 40 meq 09/16/22 22:16 Potassium Chloride Er 20 Meq Tab.Er.Prt PO 09/16/23 22:15 DAILY PRN Hypokalemia Potassium Chloride 40 meq 09/17/22 09:13 Potassium Chloride Er 20 Meq Tab.Er.Prt PO STAT PRN Hypokalemia Sodium Chloride 0 ml 09/17/22 09:13 Sodium Chloride 0.9 % 10 Ml Syringe IV-PUSH 09/17/23 09:12 PRN PRN Flush A&P - Hospitalist Assessment/Plan (1) Hypothyroidism: (2) Chest pain, rule out acute myocardial infarction: (3) Coronary vasospasm: (4) NSTEMI (non-ST elevated myocardial infarction): Plan Appreciate cardiology consultation. She underwent cardiac catheterization and found to have coronary vasospasm likely contributing to her symptoms. Ejection fraction was normal. She has been started on metoprolol and amlodipine. Continue aspirin. Plan to monitor overnight and likely discharge tomorrow if remains stable. Continue levothyroxine and DVT prophylaxis with SCDs. Documented By: Dorys Sanchez MD 09/17/221514 Signed By: <Electronically signed by Dorys Sanchez MD> 09/17/22 1518 [facility] Work Phone: [phone] 178-961503-16-2023 [facility] Consult note Author Carlos Alberto Jackson [facility] September 17, 2022 9:19am Note Date/Time September 17, 2022 9:1 2am [facility] [address] [place] [address] Cardiology Consult Note Signed with Addenda Patient: Yari Daily MR#: [id number] : 1965 Acct:[id number] Age/Sex: 57 / F Adm Date: 3 Loc: 4 Room: [address] [place] [address] Type: ADM INOo Attending Dr: Dorys Sanchez MD Copies to: DO Dorys Chavez MD Stephen M Tann, MD~ ADDENDUM1 Given the patient's concerning symptoms and positive troponin will we anticoagulate with IV unfractionated heparin as the patient's heparin drip had initially been started at [facility] was discontinued prior to her arrival at our facility. Addendum Documented By: Carlos Alberto Jackson MD 09/17/22918 Addendum Signed By: <Electronically signed by Carlos Alberto Jackson MD> 09/17/22918 Cardiology HPI History of Present Illness Consult Date: 09/17/22 Reason for Consult: Chest pain, positive serum troponin HPI: Ms. Daily is a 57 year old female with no known prior coronary heart disease but a history of morbid obesity status post gastric bypass surgery with weight loss in excess of 250 pounds who was in her normal state of health until yesterday. The patient was doing her normal swimming routine and shortly thereafter noted a rather abrupt onset of chest pressure and discomfort with radiation to the jaw and left arm and associated shortness of breath and nausea. The patient's symptoms were concerning enough to her after several minutes that she reported to [facility] emergency department for evaluation. On further history the patient notes a similar episode that happened about 2 weeks ago while she was lying in bed. She states that at that episode the discomfort lasted several minutes but ultimately dissipated spontaneously. In the [facility] initial ECG was benign without acute ischemic change. However initial troponin was mildly positive at 52. Patient was treated with oral aspirin and IV unfractionated heparin. The patient's pain dissipated over the course of the first few hours in the [facility]. With the positive troponin and history of recent chest pain our hospitalist service was contacted who accepted the patient in transfer. The patient was transferred to our facility. Second troponin done last night at 2142 hrs. was further increased at149. Third troponin done this morning at 04 44 was back down to 98.2. Of note the patient has been chest pain-free since arrival at our facility. On my evaluation this morning Yari relates no current chest pain or other anginal symptoms. She relates no resting dyspnea or orthopnea. Given the aboveepisode I am now consulted for further cardiac evaluation and management Review of Systems Review of Systems All other systems reviewed & are negative unless noted below or in HPI PMFSH Vaccinated for COVID-19?: Yes Medical History Arthritis Jennifer's disease Diabetes mellitus, type 2 Fibromyalgia Hypertension Hyperthyroidism Keratoderma hands and feet Sleep apnea Surgical History History of abdominoplasty then [facility]omas[facility] History of bariatric surgery October 2020, gastric repair December 24 History of bilateral breast reduction surgery History of section History of cholecystectomy History of gastrointestinal surgery abdominal hernia repair x 3 History of hysterectomy History of lumbar discectomy History of tonsillectomy Status post stomach removal February 2022 Family History Mother Diabetes CHF (congestive heart failure) Father Pacemaker COPD (chronic obstructive pulmonary disease) Dementia Sister Multiple sclerosis Social History Smoking Status: Former smoker Tobacco Type: cigarettes Substance Use Type: Alcohol Meds Medications and Allergies Allergies cephalexin [From Keflex] Allergy (Verified 06/29/19 10:43) skin peeled codeine Allergy (Verified 06/29/19 10:43) Difficulty Breathing sulfamethoxazole [From Bactrim] Allergy (Verified 07/13/19 09:01) Rash trimethoprim [From Bactrim] Allergy (Verified 07/13/19 09:01) Rash Home Medications levothyroxine 200 mcg tablet 100 mcg PO QAM thyroid 06/29/19 [History Confirmed 09/17/22] calcium-vitamin D3-vitamin K 500 mg-100 unit-40 mcg chewable tablet 1 tab PO TID09/17/22 [History Confirmed 09/17/22] multivitamin 1 tab PO DAILY 09/17/22 [History Confirmed 09/17/22] Exam Physical Exam Vital Signs: Temp Pulse Resp BP Pulse Ox O2 Del Method 97.7 F 62 18 116/79 96 Room Air 09/17/22 04:00 09/17/22 04:00 09/17/22 04:00 09/17/22 04:00 09/17/22 04:00 09/17/22 04:00 Const General: cooperative, healthy appearing, comfortable and no acute distress Nutritional Appearance: average body habitus Orientation: alert, awake and oriented x3 HEENT Head: normocephalic and atraumatic Mouth: moist mucous membranes Teeth and gingiva: fair dentition Eyes Conjunctivae: conjunctivae normal Sclera: sclerae normal Pupils: PERRL and accommodation normal EOM: EOM intact bilaterally Direct ophthalmoscopy: no photophobia Neck Neck: no lymphadenopathy and supple Neck mass: No Thyroid: thyroid normal Carotids: normal carotid upstroke Lymphatic: no lymphadenopathy noted Chest Chest palpation & inspection: normal inspection of the chest and normal palpation of entire chest wall Resp Effort & Inspection: normal respiratory effort and symmetric chest movement Auscultation: clear to auscultation bilaterally Cardio Jugular venous pressure: no JVD Palpation: normal PMI Rate: regular rate Rhythm: regular rhythm Heart Sounds: S1 normal, S2 normal and gallop S4 gallop Pulses: radial pulses present, posterior tibial pulses present and dorsalis pedis present GI Inspection: normal to inspection Palpation: soft and no hepatosplenomegaly Auscultation: normal bowel sounds Skin General: no rashes or lesions noted Trauma: no lacerations or abrasions Wounds: no wounds Neuro General: patient alert, patient awake, patient oriented x3, moves all extremities and no focal motor deficits Cranial Nerves: CN's II-XII intact bilaterally Cognition: normal cognition Speech: speech normal Motor: muscle tone normal throughout Sensory Exam: no sensory deficits noted Extrem General: no clubbing, cyanosis or edema Psych Appearance: grossly normal Mental Status: mental status grossly normal Mood: congruent mood Affect: normal affect Speech and Movement: speech and movement normal Attitude: cooperative Thought Process: normal Thought Content: normal Insight: insight good Judgment: judgment good TOM Risk Score TOM Risk Score Predictor Historical: ASA use in Past 7 Days Presentation: Recent (>/=24hr) Angina and Increased Cardiac Marker Score Risk Score (0-7): 3 Results Labs 09/16/22 21:42 09/17/22 04:44 Lab results: Cardiac Enzymes 09/17/22 Range/Units 04:44 AST 23 (13-39) U/L Lipids 09/17/22 Range/Units 04:44 Triglycerides 126 (0-149) mg/dL Cholesterol 179 (140-200) mg/dL HDL Cholesterol 74 (35-85) mg/dL Cholesterol/HDL Ratio 2.4 (<5.0) CBC 09/16/22 Range/Units 21:42 RBC 4.36 (3.60-5.00) X10E6/uL Hgb 13.5 (11.8-15.4) g/dL Hct 40.6 (34.0-46.4) % Plt Count 161 (150-450) x10E3/uL Neut # (Auto) 2.3 (1.8-7.7) x10E3/uL Lymph # (Auto) 2.2 (1.00-4.8) x10E3/uL [place] # (Auto) 0.3 (0.0-0.8) x10E3/uL Eos # (Auto) 0.0 (0.0-0.45) x10E3/uL Baso # (Auto) 0.0 (0.0-0.2) x10E3/uL Comprehensive Metabolic Panel 09/16/22 09/17/22 Range/Units 21:42 04:44 Sodium 140 144 (136-145) mmol/L Potassium 4.0 3.6 (3.5-5.1) mmol/L Chloride 112 H 115 H (98-107) mmol/L Carbon Dioxide 23.3 23.3 (21.0-31.0) mmol/L BUN 19 19 (7-25) mg/dL Creatinine 0.62 0.54 L (0.60-1.20) mg/dL Glucose 104 86 (74-109) mg/dL Calcium 8.9 8.8 (8.6-10.3) mg/dL AST 23 (13-39) U/L ALT 40 (7-52) U/L Alkaline Phosphatase 47 (34-104) U/L Total Protein 5.7 L (6.4-8.9) gm/dL Albumin 3.5 (3.5-5.7) gm/dL Intake and Output 09/16/22 09/17/22 09/17/22 23:59 07:59 15:59 Intake Total 250 / 250 450 / 450 Output Total 2 / 2 Balance 250 / 250 448 / 448 Intake: Oral 250 / 250 450 / 450 Output: Urine 2 / 2 Other: # Unmeasured Voids 0 # Bowel Movements 0 0 Weight 62.5 kg 62.5 kg Date of Last Bowel Movement 09/15/22 09/15/22 Patient Weight 09/17/22 23:59 Weight 62.5 kg EKG Interpretations EKG Attestation EKG: I reviewed this ECG and interpreted as documented below: Dysrhythmias Sinus rhythms and dysrhythmias: sinus rhythm Blocks, axis, hypertrophy, ST abn Repolarization changes or abnormalities: nonspecific abnormality, ST segment, and/or T wave A&P - Cardiology (1) NSTEMI (non-ST elevated myocardial infarction): Assessment/Problem Details: Patient symptoms are very concerning for accelerated angina pectoris/acute coronary syndrome. TOM risk score is only 3 however the patient's troponin hasbeen positive. No ongoing anginal symptoms. Plan: 1. We will keep n.p.o. for now 2. We will plan for urgent diagnostic left heart catheterization with possible percutaneous coronary intervention later this morning Code(s): I21.4 - Non-ST elevation (NSTEMI) myocardial infarction Plan Further diagnostic and therapeutic maneuvers will be forthcoming based on the results of the patient's cardiac catheterization. Thank you very much for this kind consultation and for allowing me to participate in the care of this very pleasant patient and her family. Documented By: Carlos Alberto Jackson MD 09/17/22908 Signed By: <Electronically signed by Carlos Alberto Jackson MD> 09/17/22916 [facility] Work Phone: 1(798) 682-839403-16-2023 History and physical note Author Arjun Layton [facility] September 17, 2022 6:44am Note Date/Time September 16, 2022 9:1 1pm [facility] [address] [place] [address] Hospitalist H&P Signed Patient: Yari Daily MR#: [id number] : 1965 Acct:[id number] Age/Sex: 57 / F Adm Date: 3 Loc: Room: [address] [place] [address] Type: ADM IN Attending Dr: Arjun Layton MD Copies to: DO Rajni Chavez DO, RES Arjun Layton MD~ HPI DATE OF EXAMINATION: 09/16/22 CHIEF COMPLAINT: chest pain, palitations HISTORY OF PRESENT ILLNESS: Patient is a 57 year old female with a past medical history of hypothyroidism, GAGE who presented to outside hospital with chest discomfort, palpitations, and jaw pain that lasted for approximately 2 hours. States she was eating lunch whenthe discomfort developed and noticed her heart was beating fast and she was short of breath. Patient does have a history of gastric bypass after which she lost over 400 pounds. She previously had a history of diabetes mellitus type II which used to require medication. She no longer requires this. She was a former smoker and quit over 20 years ago. At outside hospital troponin was mildly elevated to 57.1 and the increased to 92on repeat draw. TSH was 7.109, d-dimer was 0.39, coag studies were within normallimits, Cl 109, glucose 112, BUN 23, Cr 0.77, AST 51, ALT 86, WBC 5.9, hemoglobin 15.2. Chest x-ray showed no acute abnormality, EKG showed normal sinus rhythm with no signs of ischemia. Patient was started on a heparin drip, aspirin, IV fluids. At the time of my exam heparin drip has been stopped. Patient is not in any pain. Denies any chest pain, palpitation, shortness of breath, nausea, vomiting. Does states she has a mild headache but says that she has not eaten and this could likely could be contributing to her headache. Review of Systems Review of Systems All other systems reviewed & are negative unless noted below or in HPI [facility] Vaccinated for COVID-19?: Yes Medical History (Updated 09/16/22 @ 22:06 by Arjun Layton MD) Arthritis Jennifer's disease Diabetes mellitus, type 2 Fibromyalgia Hypertension Hyperthyroidism Keratoderma hands and feet Sleep apnea Surgical History History of abdominoplasty then seromas-surgery [facility] History of bariatric surgery October 2020, gastric repair December 24 History of bilateral breast reduction surgery History of section History of cholecystectomy History of gastrointestinal surgery abdominal hernia repair x 3 History of hysterectomy History of lumbar discectomy History of tonsillectomy Status post stomach removal February 2022 Family History Mother Diabetes CHF (congestive heart failure) Father Pacemaker COPD (chronic obstructive pulmonary disease) Dementia Sister Multiple sclerosis Social History Smoking Status: Former smoker Tobacco Type: cigarettes Substance Use Type: Alcohol Meds Medications and Allergies Allergies cephalexin [From Keflex] Allergy (Verified 06/29/19 10:43) skin peeled codeine Allergy (Verified 06/29/19 10:43) Difficulty Breathing sulfamethoxazole [From Bactrim] Allergy (Verified 07/13/19 09:01) Rash trimethoprim [From Bactrim] Allergy (Verified 07/13/19 09:01) Rash Home Medications cholecalciferol (vitamin D3) 1,250 mcg (50,000 unit) capsule 50,000 unit PO QWEEK vitamin D deficiency 06/29/19 [History Confirmed 07/13/19] duloxetine 60 mg capsule,delayed release 60 mg PO QAM fibromyalgia 06/29/19 [History Confirmed 07/13/19] hydroxychloroquine 200 mg tablet 200 mg PO BID arthritis/fibromyalgia 06/29/19 [History Confirmed 07/13/19] levothyroxine 200 mcg tablet 200 mcg PO QAM thyroid 06/29/19 [History Confirmed 07/13/19] metolazone 5 mg tablet 5 mg PO 3XW edema 06/29/19 [History Confirmed 07/13/19] metoprolol succinate 50 mg tablet,extended release 24 hr 50 mg PO QAM htn 06/29/19 [History Confirmed 07/13/19] potassium chloride 20 mEq tablet,extended release 20 meq PO QAM 06/29/19 [History Confirmed 07/13/19] semaglutide 0.25 mg or 0.5 mg (2 mg/1.5 mL) subcutaneous pen injector (Ozempic) 0.5 mg subcut QWEEK 06/29/19 [History Confirmed 07/13/19] spironolactone 25 mg tablet 25 mg PO QAM edema 06/29/19 [History Confirmed 07/13/19] Exam Physical Exam Vital Signs: Temp Pulse Resp BP Pulse Ox O2 Del Method 98.2 F 58 L 20 146/89 H 99 Room Air 09/16/22 20:32 09/16/22 20:32 09/16/22 20:32 09/16/22 20:32 09/16/22 20:32 09/16/22 20:32 Const General: cooperative, healthy appearing and no acute distress Orientation: alert, awake and oriented x3 HEENT Head: normal to inspection Ears: hearing grossly normal bilaterally Eyes General: appearance normal, both eyes and all related structures Neck Neck: normal visual inspection Chest Chest palpation & inspection: normal inspection of the chest Resp Effort & Inspection: normal respiratory effort, able to speak in complete sentences, no audible wheezes and no cough Auscultation: clear to auscultation bilaterally, no crackles and no wheezes Cardio Jugular venous pressure: no JVD Rate: regular rate Rhythm: regular rhythm Heart Sounds: S1 normal and S2 normal GI Inspection: normal to inspection Palpation: soft, no guarding and nontender Skin General: no rashes or lesions noted Neuro General: patient alert, patient awake, patient oriented x3 and no focal motor deficits Extrem General: normal to inspection and no clubbing, cyanosis or edema Psych Appearance: grossly normal Mood: congruent mood Affect: normal affect Attitude: cooperative A&P - Hospitalist Assessment/Plan (1) Hypothyroidism: (2) Chest pain, rule out acute myocardial infarction: Plan 1. Chest pain rule out ACS -Patient initially presented with chest pains and palpitations which is resolvedat the time of my exam -Troponin is minimally elevated 57 which increased to 92 -EKG showed normal sinus rhythm with no signs of ischemia -Chest x-ray was negative for any acute pathology -Patient started on aspirin and heparin drip at outside hospital -Heparin drip was been stopped since transfer -Repeat lab work including CBC, CMP, troponin - ASA - ACS can't be ruled out she will be admitted for observation -Consult cardiology 2. Hypothyroidism -Continue home levothyroxine DVT prophylaxis: Heparin CODE STATUS: Full code Attending Physician Attestation: I personally saw this patient on the day of the encounter, reviewed the history,performed the thornton elements of the exam, formulated the plan of care and confirmed the written note. I agree with the findings and plan as documented in this note and have edited it if needed to reflect my findings and plan. Arjun Layton MD Documented By: Arjun Layton MD 09/16/222048 Signed By: <Electronically signed by Arjun Layton MD> 09/17/22 0644 <Electronically signed by DO VALERIE Angela> 09/16/22 [address] [facility] Work Phone: 1(562) 416-119903-07-2023 NoteHNO ID: [id number] Author: Campbell Tristan MD Service: ? 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 Referred to us for surgical revision s/p Laparoscopic subtotal gastrectomy, Gastric fistula take down, EJ reconstruction 03/02. Presents today for her six months postoperative visit Doing well overall. Tolerating regular diet. Taking postop vitamins She does have a symptomatic incisional hernia that has been repaired in the past. Given the complexity of her surgical history I am going to refer her to one of my partners in the abdominal wall reconstruction section (Dr Marks). Will obtain vitamin levels as well Subjective/Interval Events: as above Objective: Ht 160 cm (5' 3 ) Wt 62.6 kg (138 lb) BMI 24.45 kg/m? Intake and Output: No intake/output data recorded. CBC BMP Physical exam: General: Awake, alert and oriented, NAD Neck: supple. Respiratory: Non-labored breathing Cardiac: HDS Abdomen: Soft, non-distended, non tender, midline reducible incisional hernia Campbell Tristan MD September 08, 2022 1:19 [facility]03-07-2023 History of Present illness Narrative* Campbell Tristan MD - 09/08/2022 1:19 PM EST Name: Yari Daily Assessment and Plan: 56 year old female, with PSH of multiple incisional hernia repair, laparoscopic gastric sleeve, complicated with gastric leak, take down open, and 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 Referred to us for surgical revision s/p Laparoscopic subtotal gastrectomy, Gastric fistula take down, EJ reconstruction 03/02. Presents today for her six months postoperative visit Doing well overall. Tolerating regular diet. Taking postop vitamins She does have a symptomatic incisional hernia that has been repaired in the past. Given the complexity of her surgical history I am going to refer her to one of my partners in the abdominal wall reconstruction section (Dr Marks). Will obtain vitamin levels as well Subjective/Interval Events: as above Objective: Ht 160 cm (5' 3 ) Wt 62.6 kg (138 lb) BMI 24.45 kg/m Intake and Output: No intake/output data recorded. CBC BMP Physical exam: General: Awake, alert and oriented, NAD Neck: supple. Respiratory: Non-labored breathing Cardiac: HDS Abdomen: Soft, non-distended, non tender, midline reducible incisional hernia Campbell Tristan MD September 08, 2022 1:19 PM documented in [facility] Instructions* Patient Instructions* Sarah Gregory RD - 08/31/2022 10:33 AM EST 1. Protein: Continue to strive for 77 g protein per day. Eat protein first at all meals. Lean meats, low fat/part skim dairy products, peanut butter, eggs, beans. 2. Eat 4 small meals per day or 3 meals and 1-2 small snacks for additional protein 3. Fluids: 64 oz per day, minimum. No carbonation, no caffeine, no calories, no alcohol. 4. Vitamin/minerals: Take daily Bariatric Choice Multivitamins (2 tabs, 2x per day) 5. Exercise: strive for daily activity - combine strength training and cardio for best workouts. Goal is 30 minutes 5-6x per week. 6. Practice these: Eat in this order protein first, vegetable and fruit second and whole grain carbohydrates last. * Separate eating and drinking by 30 minutes * Chew your food 20-30x per bite * Meals should last 30 minutes. 7. Aim for 1500 calories per day Nutrition Monitoring & Evaluation: Maintain BMI < 30 Need for Follow up: 3 months, [phone] documented in this encounterS[facility] History of Present illness Narrative* Sarah Gregory RD - 08/31/2022 10:07 AM EST [facility] Nutrition Therapy: Virtual Consult - Re-assessment This visit was performed virtually due to the COVID-19 epidemic as an effort to protect patients and minimize exposure. Consent from patient received to conduct visit virtually. This Team Access Model visit is a virtual encounter. It required patient-provider interaction for the medical decision making as documented below. Nutrition Diagnosis: Altered Gastrointestinal Tract Function, related to, S/P bariatric surgery, asevidenced by patient update and PSH RECOMMENDED MALNUTRITION DIAGNOSIS: NO MALNUTRITION IDENTIFIED NUTRITION CARE PLAN: Nutrition Intervention 08/31/2022: Modify type and amount of food and beverage 1. Protein: Continue to strive for 77 g protein per day. Eat protein first at all meals. Lean meats, low fat/part skim dairy products, peanut butter, eggs, beans. 2. Eat 4 small meals per day or 3 meals and 1-2 small snacks for additional protein 3. Fluids: 64 oz per day, minimum. No carbonation, no caffeine, no calories, no alcohol. 4. Vitamin/minerals: Take daily Bariatric Choice Multivitamins (2 tabs, 2x per day) 5. Exercise: strive for daily activity - combine strength training and cardio for best workouts. Goal is 30 minutes 5-6x per week. 6. Practice these: Eat in this order protein first, vegetable and fruit second and whole grain carbohydrates last. * Separate eating and drinking by 30 minutes * Chew your food 20-30x per bite * Meals should last 30 minutes. 7. Aim for 1500 calories per day Nutrition Monitoring & Evaluation: Maintain BMI < 30 Need for Follow up: 3 months PROGRESS: Interval History: Patient presents for follow up nutrition Virtual Consult 6 months post op partialgastrectomy, Gastric fistula take down, EJ reconstruction. Previous LSG in 2020 at OSH. Net weight loss 35 pounds (167 lbs pre-surgery) 21% TWL 12 pounds weight loss since last assessment (144 pounds) Patient reports desired weight of ~140 pounds Diet recall indicates consistent meal pattern with no missed meals. Patient has increased snacking and is tracking intake, however calories continue to fall below recommendations. Likely secondary toearly satiety and overall low appetite. Following Phase 5 diet appropriately. Patient reports some noted muscle weakness, however feels generally well overall. 2926-1028 calories/day - insufficient 84 gm protein intake/day - meeting needs 32-48 oz fluid intake/day - insufficient Taking all vitamin/minerals. Labs not yet available Resting Metabolic Rate: 1161 Energy needs for weight gain: 1497+ (25+ aleksander/kg current weight) Protein needs: 82 grams protein per day (1.2 g/kg IBW kg) Exercise - consistent and meets recommendations Nutrition Intervention 06/01/2022: Diet Guidelines after Gastrectomy Surgery 1. Eat 5-6 small meals daily 2. Eat slowly and chew your foods thoroughly 3. Avoid concentrated sweets and simple sugars 4. Eat foods high in protein at every meal and snack 5. Separate eating and drinking by 30-45 minutes 6. Choose foods high in soluble fiber to help slow stomach emptying 7. Sit upright for all meals 8. Fat in small amounts - it can help delay dumping symptoms 10. Intolerance of specific foods varies greatly - be patient with identifying those foods 11. Continue current Bariatric MVI + 9634-2398 mg calcium citrate 12. Complete at least 150+ minutes physical activity with a combination of cardio and 2-3 days of strength training per week Protein Goal: 77 gm per day Actions to implement interventions: Diet History: Breakfast - 1/2 cup quiche OR cereal OR granola with yogurt Snack - sometimes, granola OR sesame seed sticks OR trail mix Lunch - leftovers (meat and vegetables, sometimes with starch), OR cottage cheese with fruit Snack - sometimes, lunch leftovers Dinner - meat and vegetables, sometimes with starch(bites) Snack - dinner leftovers AND cheese and crackers Beverages - water (16 oz), whole milk (16-24 oz), occasional coffee, unsweet iced tea Alcohol - none Vitamins/Supplements - Bariatric Choice All in One with calcium MVI (4x per day), probiotic Activity: 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 RMR can't be calculated - Weight unrecorded in last 120 days. Malnutrition Screening Significant unintentional weight loss? No Eating less than 75% of usual intake for more than 2 weeks? No Potential Signs of Inflammation: no identifiable sources Nutritional status: Education Materials Provided: None this visit READINESS TO LEARN Cognitive ability: Alert and oriented Motivation to learn: Interested Family support: High - Very involved in pt care Instruction provided to: Patient Patient learns best by: Multiple Methods Factors affecting learning: None Physical limitations affecting learning: None Likelihood of Adherence: High Referred by: Azalea FRAGOSO Billing Type: Re-assess/15 min 2 units SIGNATURE: Sarah Gregory RD PATIENT NAME: Yari Daily DATE: 08/31/2022 TIME: 10:08 AM PAGER: [id number] documented in this encounterShel[facility]09-30-2022 Instructions* Patient Instructions* Sraah Gregory RD - 04/03/2022 12:35 PM EDT 1. Eat 5-6 small meals daily 2. Eat slowly and chew your foods thoroughly 3. Avoid concentrated sweets and simple sugars 4. Eat foods high in protein at every meal and snack -goal of 82 gm per day 5. Separate eating and drinking by 30-45 minutes 6. Choose foods high in soluble fiber to help slow stomach emptying 7. Sit upright for all meals 8. Fat in small amounts - it can help delay dumping symptoms 10. Intolerance of specific foods varies greatly - be patient with identifying those foods 11. Add a Bariatric-style of bariatric such as: [facility] Bariatric Multivitamin 45 AND 5698-4873 mg calcium citrate Nutrition Monitoring & Evaluation: Maintain current weight Criteria: patient update and weight check Need for Follow up: 2 months, [phone] documented in this encounterSheltering [facility]09-30-2022 History of Present illness Narrative* Sarah Gregory, RICCO - 04/03/2022 12:09 PM EDT [facility] Nutrition Therapy: Virtual Consult - Initial Assessment This visit was performed virtually due to the COVID-19 epidemic as an effort to protect patients and minimize exposure. Consent from patient received to conduct visit virtually. This Team Access Model visit is a virtual encounter. It required patient-provider interaction for the medical decision making as documented below. 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) Additional Activity: Moderately active (Moderate intensity exercise: Planned physical activity 3-5 days/week) Diet History: Breakfast - scrambled egg with cheese Snack - yogurt Lunch - cottage cheese Snack - mashed potatoes with added protein powder Dinner - macaroni and cheese with added protein powder OR meatballs and spaghetti Snack - whipped cream with added protein powder Beverages - iced tea with stevia, water with flavor enhancer - total: 64 oz Vitamins - none ANTHROPOMETRICS Height per patient: 64 Weight per patient: 162# Most recent height and weight per EPIC Height: Last 1 Encounter Ht Readings: Date: Ht: 04/03/2022 162.6 cm (5' 4 ) Weight: Last 1 Encounter Wt Readings: Date: Wt: 04/03/2022 0 kg () Body mass index is 28.67 kg/m . Malnutrition Screening Significant unintentional weight loss? No Eating less than 75% of usual intake for more than 2 weeks? Yes, advancing diet per bariatric protocol Potential Signs of Inflammation: no identifiable sources RECOMMENDED MALNUTRITION DIAGNOSIS: NO MALNUTRITION IDENTIFIED Educational materials provided: None this visit Patient presents for initial nutrition Virtual Consult 1 months post op partial gastrectomy, Gastric fistula take down, EJ reconstruction. Previous LSG in 2020 at OSH. Net weight loss 5 pounds (167 lbs pre-surgery) 3% TWL Patient reports being content with current weight Diet recall indicates consistent meal pattern with no missed meals. Following Phase 3/4 diet appropriately. Patient feeling well overall. 500-600 calories/day - insufficient 60 protein intake/day - insufficient 64 oz fluid intake/day - meeting needs Not yet taking vitamin/minerals. Labs not yet available for review Resting Metabolic Rate: 1318 Energy needs for weight maintenance: 7887-4650 (20-25 aleksander/kg current weight) Protein needs: 82 grams protein per day (1.2 g/kg IBW kg) Exercise - consistent and includes walking 3x per week - meeting recommendations Nutrition Diagnosis: Altered Gastrointestinal Tract Function, related to, S/P bariatric surgery, asevidenced by patient update and PSH . Nutrition Intervention 04/03/2022: Modify type and amount of food consumed for meals and snacks: 1. Eat 5-6 small meals daily 2. Eat slowly and chew your foods thoroughly 3. Avoid concentrated sweets and simple sugars 4. Eat foods high in protein at every meal and snack -goal of 82 gm per day 5. Separate eating and drinking by 30-45 minutes 6. Choose foods high in soluble fiber to help slow stomach emptying 7. Sit upright for all meals 8. Fat in small amounts - it can help delay dumping symptoms 10. Intolerance of specific foods varies greatly - be patient with identifying those foods 11. Add a Bariatric-style of bariatric such as: [facility] Bariatric Multivitamin 45 AND 3829-2809 mg calcium citrate Nutrition Monitoring & Evaluation: Maintain current weight Criteria: patient update and weight check Need for Follow up: 2 months, [phone] [facility] Billing Type: Initial Assess/15 min 2 units Signed by: Sarah Gregory RD documented in this encounterSheltering [facility] Hospital09-21-2022 Miscellaneous Notes* Telephone Encounter - Regine Briceño RN - 03/25/2022 12:09 PM EDT Spoke to patient regarding her appt on 03/31/[address] [facility] [address] Tristan. Wanted to confirm location, since she was initially seen at [facility]. Patient is ok with location. Patient states that she is following up for G-tube removal. She is c/o a little pain and some drainage. She is aware of s/s of infection. Patient is agreeable to appt on 03/31/22 at [facility]. Regine Briceño RN March 25, 2022 12:11 PM documented in this encounterSheltering [facility] Hospital09-09-2022 History of Present illness Narrative* Campbell Tristan MD - 03/13/2022 2:53 PM EDT Name: Yari Daily Assessment and Plan: 56 year old female, s/p partial gastrectomy, Gastric fistula take down, EJ reconstruction 03/02. Doing great overall, tolerating phase 2. On exam has a small 2cm hematoma on the LUQ incision where thedrain was. Will watch it for now I advice to stay on phase 2 for another 2-3 weeks and I will see her in the office in three weeks for G tube removal and advance the diet Subjective/Interval Events: as above Objective: Ht 160.5 cm (5' 3.18 ) BMI 29.41 kg/m Intake and Output: No intake/output data recorded. CBC BMP Physical exam: General: Awake, alert and oriented, NAD Neck: supple. Respiratory: Non-labored breathing Cardiac: HDS Abdomen: Soft, non-distended, non-tender, incision C/D/I. Small 2cm seroma/hematoma on the LUQ. Campbell Tristan MD March 13, 2022 2:53 PM documented in this encounterSheltering [facility]09-08-2022 Miscellaneous Notes* Telephone Encounter - Lily Red RN - 03/12/2022 8:02 PM EDT BMI SPECIALTY CARE COORDINATION POST-OP TELEPHONE CALL BMI Post Op Telephone Call Pt was called on the third day after discharge. DO YOU HAVE A COPY OF YOUR DISCHARGE INSTRUCTIONS YES Is there anything in your discharge instructions that you do not understand? NO Pain: tolerable. and taking Tylenol. On a scale of 0-10, 0 being not satisfied and 10 being very satisfied, how satisfied were you with your pain management strategy after surgery? 10 Patient instructed not to take any narcotic pain medications (such as Roxicodone) within three hours before bedtime as it may cause breathing difficulty. If you are having pain at bedtime you may take Tylenol (liquid form or two extra strength tablets). Phase 2 full liquid diet:: tolerating diet. and pt estimates 20 grams of protein and 38 oz of fluiddaily. ENCOURAGED to increase fluid and protein intake Incisions: surgical glue intact GI: + BM : WNL Medications: Taking as instructioned at discharge Zofran and lovenox CPAP USE: Yes but wasn't using d/t Nasal FT so will start using Remind patient of post op appt. Reminded patient of how to reach [facility] or their surgeons office. Patient reminded to seek medical attention if they develop chest pain, a sudden onset of shortness of breath or persistent pain in the calf of their legs - BEST TO ALWAYS present to THE MEDICAL CENTER hospital where you had your surgery Patient verbalized understanding of all advice and instructions given. COVID-19 Symptoms: denies . Lily Red RN documented in this encounterSheltering Arms Hospital08-26-2022 Instructions* Patient Instructions* Cary Santoyo PA-C - 02/27/2022 10:39 AM EDT PATIENT PREOPERATIVE INSTRUCTIONS Campbell Tristan, * has scheduled you for your procedure at this surgery center: [facility] Scheduling Office: [phone] --[address] [place] [address]. Please read below carefully for your personalized instructions. Dietary Restrictions: - No solid food after midnight. - You may have 12 ounces of clear liquids (water, clear juices such as apple juice or gatorade, carbonated beverages, clear tea, black coffee, jello) until 2 hours before scheduled arrival at facility. - Other Nutritional drinks may be advised on day of surgery 2 hours prior to scheduled arrival at facility. - STOP feed by midnight or before you go to bed the day prior to surgery - do not have anything after midnight Medications: Unless instructed differently below, stay on all of your medications until your surgery. Approved medications to take the morning of surgery with a sip of water: Levothyroxine If you start any new medications after today's visit, please contact the surgeon's office. Blood Thinning Medications: - Stop NSAIDS (Ibuprofen, Advil, Aleve, Motrin, Celebrex, Mobic, etc.) 7 days before surgery, as directed by your surgeon. - Stop Aspirin 7 days before surgery, as directed by your surgeon. - Stop Vitamin E, ALL multi-vitamins, herbals and dietary supplements 7 days before surgery. - You may take Tylenol (Acetaminophen) or any of your pain medications that do not contain aspirin or NSAIDS as needed. Important Reminders: - If you use CPAP/BIPAP, bring the machine with you to the surgery center. - If you are prescribed inhalers for breathing, continue using them. - Candy, mints, and tobacco products are NOT permitted the morning of surgery. - Hearing aids, dentures and glasses may be worn the morning of surgery. - NO jewelry, body piercings, makeup, hairpins or contacts are to be worn the day of surgery. If you develop symptoms such as a fever, cold, or flu, or have other changes to your health within TWO DAYS of scheduled surgery or the morning of surgery, please contact the surgery center above. Personal Belongings: -Please have photo ID and insurance cards. -If you do not have a copy of advance directives on file with us, please bring a copy with you on the day of surgery. - Leave ALL valuables and money at home or with family members. For Outpatient Procedures: - YOU MUST HAVE A RESPONSIBLE DRESSING ROOM PORTER TAKE YOU HOME. A CIVIL ENGINEERING DESIGNER OR SUPPORT ASSOCIATE CANNOT BE MADE A RESPONSIBLE DRESSING ROOM PORTER. - We recommend that a responsible person stays with you overnight to take care of you. - You cannot stay in a hotel alone after outpatient surgery. You will not be permitted to have yoursurgery, if you do not have someone to take care of you. Arrival Time for Surgery: - The Surgery Center or hospital where you are having surgery will call the afternoon before surgery (or Wednesday for Wednesday surgery) with a scheduled arrival time. - If you have not heard by 4 pm, please contact the surgery center above. Please be aware that emergency situations arise, which may delay or change your surgical time. If this happens, we will notify you as soon as possible and regret any inconvenience. If you already have an Advance Directive, please fax a copy to [phone] or email to for it to be added to your chart. If you do not have an Advance Directive, you can find the appropriate form and more information at [email or web address]. We recommend that youcomplete the Advance Directive form found on the website and bring it with you the day of your surgery. It can be witnessed and scanned into your chart that day. Cary Santoyo PA-C documented in this encounterSheltering Arms Hospital08-26-2022 History and physical note * Cary Santoyo PA-C - 02/27/2022 10:22 AM EDT HISTORY AND PHYSICAL EXAMINATION SERVICE DATE: 02/27/2022 SERVICE TIME: 10:23 AM PRIMARY CARE PHYSICIAN: Holland Bowers MD, DO REASON FOR VISIT: Yari Daily is a 56 year old female who is scheduled for LAPAROSCOPIC GASTRIC RESTRICTIVE SURG W/ BYPASS & DG-EN-Y 150CMOR LESS/CONVERSTION SLEEVE TO BYPASS POSSIBLE OPEN / LAPAROSCOPIC GASTRECTOMY WITH AN EJ at the request of Dr. Campbell Tristan for consultation. My final recommendation will be communicated back to the requesting physician by way of shared medical record or letter. 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 Has feeding tube in - placed in November Recommended for above surgery and elected to proceed. PAST MEDICAL HISTORY Diagnosis Date Arthritis Asthma COPD (chronic obstructive pulmonary disease) (HCC) COELLO (dyspnea on exertion) Edema Family history of early CAD History of smoking History of transfusion Hypothyroid Obesity Orthopnea BiPAP GAGE (obstructive sleep apnea) PAST SURGICAL HISTORY Procedure Laterality Date EVACUATION OF SEROMA 05/2016 HYSTERECTOMY HX 1999 LAMINECTOMY W/O FFD / VERT SEG LUMBAR MIDLINE INSERTION/CONSULT 12/15/2021 PAST SURGICAL HISTORY OF Left elbow surgery PAST SURGICAL HISTORY OF hernia - multiple PAST SURGICAL HISTORY OF c section X2 PAST SURGICAL HISTORY OF gallbladder PAST SURGICAL HISTORY OF tummy tuck REDUCTION OF LARGE BREAST TONSILLECTOMY HX as a child TUBAL LIGATION HX 03/2001 FAMILY HISTORY Problem Relation Age of Onset Diabetes Mother of COPD Ischemic Heart Disease Mother 55 Angioplasty other (Myocardial infarction) Father 35 of COPD and dementia 79 Glaucoma Maternal Aunt SOCIAL HISTORY: Social History Tobacco Use Smoking status: Former Packs/day: 0.50 Years: 5.00 Pack years: 2.50 Types: Cigarettes Quit date: 04/13/1998 Years since quittin.8 Smokeless tobacco: Never Substance Use Topics Alcohol use: Not Currently Comment: none in a year as of 02/2022. Drug use: No Comment: denies tx for drug/alcohol abuse in the past. Prior to Admission medications as of 02/27/22 1011 Medication Sig Last Dose Taking levothyroxine (SYNTHROID) 88 mcg tablet Take 88 mcg by mouth once daily. Yes ondansetron orally disintegrating (ZOFRAN ODT) 4 mg disintegrating tablet Take 1 tablet by mouth every 6 hours. Yes nut.tx.comp. immune systm,reg (IMPACT PEPTIDE 1.5 ALEKSANDER) 0.09 gram- 1.5 kcal/mL liqd 45 mL/hr by FEEDING TUBE route once daily. Impact 1.5 or equal formula @ 45 ml/hr with 150 ml x 6 water flushes, cycle to 70 ml/hr x 16 hours as tolerated via corpak Yes albuterol HFA (PROAIR HFA) 90 mcg/actuation inhaler 2 Puffs every 4 hours as needed. Take as directed Yes Insulin [place], Disposable, (BD ULTRA-FINE ABI PEN NEEDLE) 32 gauge x 5/32 ndle Use as directed with 1 subcutaneous injection daily. Yes No medication comments found. ALLERGIES Allergen Reactions Codeine Anaphylaxis Keflex [Cephalexin] Hives, Other: See Comments Peeling of skin. Has received multiple courses of piperacillin/tazobactam without noted reaction inpatient. COVID VACCINATION STATUS: Fully vaccinated REVIEW OF SYSTEMS: PAIN ASSESSMENT: Pain Pain Level: 4 Pain Location: Shoulder-Left Description: Sharp;Aching Duration Amount of Time: 1 Duration Units: Years Frequency: Intermittent Intervention/Comfort measure: Other: See comment Comments: Not drinking too much. General: No weight loss, malaise or fevers. Neuro: No history of TIA's, stroke, OIM CONSULTANT tumor, impaired sensorium, hemiplegia, paraplegia or quadraplegia. No neurological symptoms or problems. Respiratory: Negative for Current cough, Home O2, Tobacco Use, URI < 2 weeks + COPD not needed + GAGE not needed Cardiovascular: No history of HTN requiring medication, no history of angina, CHF, KS, cardiac surgery or stents. Denies rest pain, gangrene or revascularization/amputation for PVD. No history of cardiovascular symptoms or problems. GI: No history of GI symptoms or problems. No history of esophageal varices, recent ascites, or ETOH greater than 2 drinks per day. : No history of dysuria, frequency or incontinence,, stones or chronic kidney disease YACHT HAND: Negative for abnormal vaginal bleeding, abnormal vaginal discharge. : Denies, No LMP recorded. Patient has had a hysterectomy. Endocrine: Hypothyroidism + Hypothyroid Hematology: No history of bleeding or clotting disorder. Pt is not taking anti- coagulation or platelet medications. No history of hematological symptoms or problems. Oncology: No history of CA metastasis, chemo within 30 days, or radiotherapy within 90 days. Has not lost 10% of body wt in 6 months. No history of oncological symptoms or problems. Psych: No history of psychiatric symptoms or problems. Musculoskeletal: Negative for joint pain or swelling, back pain or muscle pain. Skin: Negative for lesions, rash and itching. Objective PHYSICAL EXAM: VITALS: BP 123/63 Pulse 55 Temp (Src) 97.6 (Temporal Artery) Resp 16 Ht 5' 4 (1.63m) Wt 167 lb (75.8kg) SpO2 99% BMI 28.65 kg/(m^2). General: Alert and oriented, No acute distress Skin: Normal color, no rash, no lesions. HEENT: EOM, pupils equal, round and reactive. NG Tube in place Cardiovascular: Normal S1 & S2, no rubs, murmurs or gallops. No JVD. Pulse regular. Lungs: Normal breath sounds, no wheezes or crackles. Abdomen: Soft, non-tender, no rigidity. Extremities: No deformity, no edema or tenderness, no joint swelling or clubbing. Neurological: Normal cognition and motor skills. Pulses: Carotid and radial pulses normal +2. Diagnostic tests reviewed for today's visit: Lab Value Units Date High Low HB 11.5 g/dL 12/17/2021 15.5 11.5 HCT 35.8 % 12/17/2021 46.0 36.0 WBC 3.93 k/uL 12/17/2021 11.00 3.70 PLT 233 k/uL 12/17/2021 400 150 NA 139 mmol/L 12/17/2021 144 136 K 3.5 mmol/L 12/17/2021 5.1 3.7 GLUC 100 mg/dL 12/17/2021 99 74 BUN 10 mg/dL 12/17/2021 21 7 CREAT 0.57 mg/dL 12/17/2021 0.96 0.58 PTSEC 11.6 sec 12/15/2021 13.0 9.7 INR 1.1 no uni* 12/15/2021 1.3 0.9 APTT 22.5 sec 12/15/2021 32.4 23.0 ALT 11 U/L 12/15/2021 38 7 AST 12 U/L 12/15/2021 35 13 TBILI 0.2 mg/dL 12/15/2021 1.3 0.2 TSH No results within date range. Lab Value Units Date High Low HCGQT No results within date range. UHCG No results within date range. HCG, BODY* No results within date range. Lab Value Units Date High Low ABORHD No results within date range. ABSCREEN No results within date range. Hemoglobin A1C (%) Date Value 01/06/2018 6.0 Recent Results (from the past 8760 hour(s)) ECG COMPLETE Collection Time: 12/13/21 3:55 AM Result Value Ventricular Rate 57 Atrial Rate 57 P-R Interval 140 QRS Duration 94 QT Interval 478 QTC Calculation (Bazett) 465 Calculated P Schulenburg 51 Calculated R Schulenburg 23 Calculated T Schulenburg -3 Impression SINUS BRADYCARDIA ANTERIOR T WAVE ABNORMALITY ABNORMAL ECG Confirmed by HEIDI BURKETT, ED ([id number]) on 12/20/2021 10:47:47 AM All in Epic Assessment/Plan COPD (chronic obstructive pulmonary disease) (HCC) Assessment: inhaler as needed. Stable GAGE (obstructive sleep apnea) Assessment: no longer has GAGE after weight loss Hypothyroid Assessment: stable METS: Climb a flight of stairs or walk up a hill (5.50 METs) Patient denies any chest pain or undue shortness of breath with the above physical activity. ASA Class: 3 ANESTHESIA FINDINGS: Intubation History: No history of difficult intubation Significant Anesthesia Considerations: None Airway Exam: General: Normal appearance Mallampati Score is CLASS III ULBT: Class II - Lower incisors can bite the upper lip below the osbaldo line Neck: Normal appearance and function, Distance from hyoid to mentum during neck extension is at least 3 finger breaths Mouth: Normal tongue size and Mouth opening greater than 2 finger breaths Dentition: Intact Airway History: No abnormal airway history Sleep Apnea Probability Snores loudly: No Tired, fatigued or sleepy in daytime: No Stops breathing or choking/gasping during sleep: High blood pressure: No Sleep Apnea Probability Score 02/26/2022 Sleep Apnea Screen V2 15 (Sleep study not recommended) PLAN This patient is optimally prepared for surgery pending day of surgery review of labs. CONSULTS: Patient does not require consults for optimization at this time. The Following Tests/Procedures Have Been Initiated: Labs ordered by surgeon Planned Anesthetic: Per anesthesia choice Instructions Given to Patient: Instructions located in the after visit summary. Patient given verbal and written preop instructions and voices comprehension and compliance. SIGNATURE: Cary Santoyo PA-C PATIENT NAME: Yari Daily DATE: February 27, 2022 TIME: 10:22 AM documented in this encounterSheltering Arms Hospital08-15-2022 History of Present illness Narrative* Lily Red RN - 02/16/2022 6:03 PM EDT re documented in this encounterSheltering Arms Hospital08-15-2022 Miscellaneous Notes* Addendum Note - Lily Red RN - 02/16/2022 6:03 PM EDTAddended by: LILY RED on: 02/16/2022 06:03 PM Modules accepted: Orders documented in this encounterSheltering Arms Hospital08-04-2022 Miscellaneous Notes* Telephone Encounter - Lily Red RN - 02/05/2022 2:44 PM EDT [facility] SPECIALTY CARE COORDINATION TELEPHONE ENCOUNTER Contacted patient regarding Dr Tristan's OR availability. Pt waiting for sooner available open OR. Will update pt. documented in this encounterSheltering Arms Hospital07-21-2022 History of Present illness Narrative* Lily Red RN - 01/22/2022 3:22 PM EDT paulette documented in this encounterSheltering Arms Hospital07-21-2022 Miscellaneous Notes* Telephone Encounter - Lily Red RN - 01/22/2022 1:02 PM EDT [facility] SPECIALTY CARE COORDINATION TELEPHONE ENCOUNTER Spoke to [facility] nurse... Christy TF is ON only but pt vomits during day.. just bile about once daily every couple days not triggered by anything No fever VSS Stopped taking Pronix does not take anything for nausea 2 wks c/o shoulder pain relieved by vomiting PH [phone] [facility] nurse Surgeon updated. No changes at this time documented in this encounterSheltering Arms Hospital07-05-2022 History of Present illness Narrative* Campbell Tristan MD - 01/06/2022 1:08 PM EDT VIRTUAL VISIT PROGRESS NOTE This is a virtual visit using Synthace video visit. It required patient-provider interaction for themedical decision making as documented below. Yari Daily is a 56 year old female seen after Sleeve gastrectomy 10/23 complicated with a chronic leak refractory to endoscopic management. HISTORY REVIEWED (electronic chart updated): PAST MEDICAL HISTORY Diagnosis Date Arthritis Asthma COPD (chronic obstructive pulmonary disease) (HCC) COELLO (dyspnea on exertion) Edema Family history of early CAD History of smoking History of transfusion Hypothyroid Obesity Orthopnea BiPAP GAGE (obstructive sleep apnea) PAST SURGICAL HISTORY Procedure Laterality Date EVACUATION OF SEROMA 05/2016 HYSTERECTOMY HX 1999 LAMINECTOMY W/O FFD 1/2 VERT SEG LUMBAR MIDLINE INSERTION/CONSULT 12/15/2021 PAST SURGICAL HISTORY OF Left elbow surgery PAST SURGICAL HISTORY OF hernia - multiple PAST SURGICAL HISTORY OF c section X2 PAST SURGICAL HISTORY OF gallbladder PAST SURGICAL HISTORY OF tummy tuck REDUCTION OF LARGE BREAST TONSILLECTOMY HX as a child TUBAL LIGATION HX 03/2001 FAMILY HISTORY Problem Relation Age of Onset Diabetes Mother of COPD Ischemic Heart Disease Mother 55 Angioplasty other (Myocardial infarction) Father 35 of COPD and dementia 79 Glaucoma Maternal Aunt Social History Tobacco Use Smoking status: Former Smoker Packs/day: 0.50 Years: 5.00 Pack years: 2.50 Quit date: 04/13/1998 Years since quittin.7 Smokeless tobacco: Never Used Tobacco comment: 20 yrs ago Substance Use Topics Alcohol use: Yes Comment: socially Drug use: No Current Outpatient Medications Medication Sig pantoprazole (PROTONIX) 2 mg/mL oral liquid 20 mL by CORPAK route DAILY (6 AM). nut.tx.comp. immune systm,reg (IMPACT PEPTIDE 1.5 ALEKSANDER) 0.09 gram- 1.5 kcal/mL liqd 45 mL/hr by FEEDING TUBE route once daily. Impact 1.5 or equal formula @ 45 ml/hr with 150 ml x 6 water flushes, cycle to 70 ml/hr x 16 hours as tolerated via corpak albuterol HFA (PROAIR HFA) 90 mcg/actuation inhaler 2 Puffs every 4 hours as needed. Take as directed diclofenac sodium (VOLTAREN) 1 % topical gel Apply 2 g to affected area four times daily. lovastatin (MEVACOR) 20 mg tablet Take 10 mg by mouth once daily. Insulin [place], Disposable, (BD ULTRA-FINE ABI PEN NEEDLE) 32 gauge x ndle Use as directed with 1 subcutaneous injection daily. CHOLECALCIFEROL, VITAMIN D3, (VITAMIN D3 ORAL) Take by mouth once daily. levothyroxine (SYNTHROID) 200 mcg tablet Take 200 mcg by mouth daily before breakfast. No current facility-administered medications for this visit. ALLERGIES Allergen Reactions Codeine Anaphylaxis Keflex [Cephalexin] Hives, Other: See Comments Peeling of skin. Has received multiple courses of piperacillin/tazobactam without noted reaction inpatient. REVIEW OF SYSTEMS: GENERAL: feeling well without fatigue, no recent change in weight HEENT: denies BURRIS, change in hearing or vision, no other ENT complaints NECK: denies swelling or pain in neck RESPIRATORY: no cough, no wheezing or shortness of breath CARDIOVASCULAR: no chest pain, no palpitations GI: referred left shoulder pain from diaphragmatic irritation : urination is normal YACHT HAND: denies abnormal vaginal bleeding, no vaginal discharge, no breast mass/tenderness MUSCULOSKELETAL: denies any painful or swollen joints, no muscle aches SKIN: no rash PSYCH: denies depressed or anxious mood, sleep is normal HEMATOLOGY/LYMPHOLOGY: negative for prolonged bleeding, no swollen lymph nodes ENDOCRINE: denies cold/heat intolerance, denies polyuria or polydipsia, no goiter NEURO: no numbness or paresthesias and no weakness of the extremities PHYSICAL EXAMINATION: VIDEO EXAM: (if completed, performed via video enabled technology) No exam performed ASSESSMENT: Yari Daily is a 56 year old female seen after Sleeve gastrectomy 10/23 complicated with a chronic leak refractory to endoscopic management. In her most recent hospitalization a postpyloric Corpak was placed to improve her nutritional status looking for a revision in the near future once she is me dically fit. A prealbumin was ordered today and the results are pending. We will get a new one in three weeks. I explained to the patient what is the surgical plan. The possibility of converting to open. I alsoexplained since she has an incisional hernia there is a possibility of placing a vicryl mesh if theanterior fascia is under tension. PLAN: I expect to have her nutritional status improved so we can revise her in six weeks or so. There are no Patient Instructions on file for this visit. I spent a total of 20 minutes on the date of the service which included preparing to see the patient, [id number] patient care, counseling and educating the patient/family/caregiver, ordering medications, tests, or procedures and care coordination (not separately reported) Campbell Tristan MD documented in this encounterSheltering Arms Hospital06-20-2022 Miscellaneous Notes* Telephone Encounter - Sarai Domínguez RN - 12/22/2021 11:48 AM EDT BMI SPECIALTY CARE COORDINATION TELEPHONE ENCOUNTER Chief complaint & duration For for follow up labs post discharge. Should home care draw? Also change to V. V. Call discussed last week. Type of procedure: repair of gastric perf with Sarah Beth-Sanders and Tristan in December of 2021. Nursing assessment (subjective/objective) due for flabs and change her upcoming visit to virtual . Recommendation: pt requested to do the labs near her at a [facility] facility [facility] [place]. Will change her in person at [facility] visit on Wednesday to a V. V WednesdayJanuary 09 at 9A. Can do labs before her visit earlier in the same week. She agrees. Walked the visit change/pt info to our scheduling to update. documented in this encounterSheltering Arms Hospital06-11-2022 History of Present illness Narrative* Janell Ruano APRN.MONA - 12/13/2021 3:53 AM EDT Images from the original note were not included. Critical Care Transport Note Patient Name: Yari Daily Service Date: 12/13/21 Referring Physician: Angela Referring Facility: [facility] ED Accepting Physician: Dora Accepting Facility: [facility] SUBJECTIVE/CHIEF COMPLAINT: abdominal pain, tachycardia REASON FOR TRANSPORT: Specialized tertiary and quaternary care for the patient's acute medical/surgical condition not available at the referring facility. History of Present Illness: The following history is what was known to CCT team at time of given care and summarized through review of available medical records, patient/family interview and from referring physician and nursing report. Yari Daily is a 56 year old female with a past medical history significant for gastric sleeve surgery 10/2020, hypothyroid and obesity. She has had multiple hospitalizations in the last year for intraabdominal infections, bowel perf and was taken back to OR for repair. Sheh has been NPO until 3 weeks ago when she re-introduced oral solid foods. She presented to [facility] ED tonight for evaluation of acute abdominal pain and a high heart rate. Per patient she had been not feeling well for the last few days, but earlier tonight around dinner time she felt her heart rate was high. On arrival to the ED her HR was in 180s (SVT), initially her BP was stable. She was given Cardizem 5 mg and Metoprolol 5 mg IV and she subsequently became hypotensive. She was then given 3 L IV fluids andshe was able to spontaneously convert to NSR in 80s. CT abd/pelvis was done that was notable for intraabdominal air adjacent to the gastric bod and fundus, findings concerning for perforation with possible abscess. She was then given Vanco, Flagyl, Solu-cortef. Pain had been treated with morphine and nausea with zofran. At this time, the physician managing the patient requested transfer to the [facility] for tertiary and/or quaternary services unavailable at the referring facility. The physician managing the patient requested the [facility] Critical Care Transport Team transport and treat the patient for the purpose of tertiary care, evaluation, and management of her acute bowel perforation condition(s). Air medical transport was requested to reduce the [id number] time, 26 minutes by air vs. approximately 75 minutes by ground, with the potential for increased ground transport time secondary to: distance between facilities and ground round transport time would be excessive and detrimental to patient given current clinical status ROS: GENERAL: +weight loss r/t gastric sleeve surgery. Denies malaise, fevers RESPIRATORY: Negative for cough, hemoptysis, wheezing, COPD, dyspnea or shortness of breath CARDIOVASCULAR: Negative for chest pain, leg swelling, hypertension, CHF or palpitations GI: No nausea, vomiting, or diarrhea : No history of dysuria, frequency or incontinence The remainder of the review of systems is negative. PAST MEDICAL HISTORY: hypothyroid Obesity PAST SURGICAL HISTORY: Gastric sleeve surgery 10/2020 Ex-lap 03/2021 ALLERGIES: Codeine and Keflex [Cephalexin] SOCIAL HISTORY: Social History Tobacco Use Smoking status: Former Smoker Packs/day: 0.50 Years: 5.00 Pack years: 2.50 Quit date: 04/13/1998 Years since quittin.6 Smokeless tobacco: Never Used Tobacco comment: 20 yrs ago Substance Use Topics Alcohol use: Yes Comment: socially Drug use: No HOME MEDICATIONS: Levothyroxine Remainder of home meds unknown to CCT at the time of transport Medications Administered by Referring Facility: Cardizem 5 mg IV Metoprolol 5 mg IV 3 L IV fluids Solucortef 100 mg IV Vancomycin 1 gm IV Flagyl 1 gm IV Morphine 4 mg IV Zofran 4 mg IV OBJECTIVE: Recent Labs, Diagnostics & Procedure Reports reviewed as available. Referring Facility Labs CBC: WBC 12.9k Hgb 13.8 Hct 43.8 Plt 385K CHEMISTRY: Na 139 K 3.7 Cl 102 CO2 26.4 BUN 15.0 SCr 0.84 Glu 120 Ca 9.0 AG 14.3 Liver enzymes AST 16 ALT 24 AP 113 Tbili 0.5 TP 7.9 Alb 2.7 Cardiac Enzymes: HS Trop 50.2 Lactate 1.8 SARS-CoV-2 - negative Diagnostics & Procedure Reports EC: SVT rate 171, ST depression II, III, aVF, TWI V2-3, QTc 373 0150: NSR, rate 74, TWI V2-3 CXR: (per OSH radiology report) No acute cardiac or lung disease identified CT Scan Abd/pelvis: (per OSH radiology report) 1. There is an ill-defined sift tissue collection anterior to the gastric body which demonstrates foci of air, this is adjacent to a cystic intramural gastric body collection measuring up to 1.4 cm in thickness which appears to balloon out with air and appears continuous with the soft tissue collection. A second ill- defined soft tissue density collection which demonstrates foci of air which appears continuous with the gastric fundus. These findings are concerning for perforation with possible abscesses 2. Pancreatic tail abuts the ill-defined collection adjacent to the gastric fundus 3. Periportal edema with mild attenuation of the right and left portal veins which remain patent. Main portal vein appears patent. 4. Ventral hernia containing a knuckle of large bowel with associated fat stranding. Procedure/Operative Report(s): None Invasive Lines/Devices/Tubes Placed by Referring Facility: PIV x 2 PHYSICAL EXAM: Upon CCT Arrival at Referring Facility Vital Signs: HR 75bpm, BP 138/83(101)mmHg, RR 16, SpO2 98% Oxygen/Ventilator Settings: 2 L O2 via NC General appearance: alert, pleasant. HEENT: normocephalic, EOMI, PERRL 2 mm, briskly reactive. Oropharynx clear, no plaques or exudates,Posterior Oropharynx symmetric, Mucous membranes moist, Nasal mucosa non-edematous and No rhinorrhea Respiratory: clear to auscultation bilaterally, no respiratory distress, no rales, no rhonchi, no wheezing, no retractions, no cyanosis. Cardiovascular: no murmurs, no rubs, no gallops, regular rate and rhythm, peripheral pulses symmetric. No peripheral edema noted. Extremities warm, cap refill < 3 sec Gastrointestinal: Abd, soft, nondistended, no organomegaly, normal bowel sounds and no masses. +pain with light palpation LUQ, just left of ventral hernia Genitourinary: Exam deferred Musculoskeletal: No clubbing, cyanosis or edema, no joint swelling, no bony tenderness and no deformities Skin: normal, no abrasions or open wounds, no rashes noted Heme/Lymph: No petechiae. No abnormal bruising or bleeding noted Neurologic: Awake, alert and oriented x 3, normal speech, No involuntary motions, Normal sensation GCS Eyes: 4. Spontaneous Verbal: 5: Oriented Motor: 6: Obeys Motor commands Total: 15 CRITICAL CARE COURSE Upon bedside arrival at referring facility the patient was assessed and detailed physical exam performed. Initial exam findings as described above. The patient was placed on the transport monitor andall transport equipment transitioned in standard fashion. Initial exam as noted above, pt remains awake, oriented, continued c/o abdominal pain on palpation. HR now in 70s-80s, NSR, BP stable. The patient was transferred to the transport cot and transported to the Aircraft and loaded without incident. The patient was medically managed, monitored, and reassessed during transport. Medications Managed & Administered by CCT: Flagyl - continued Vancomycin - continued Procedures Performed by CCT: none ASSESSMENT/PLAN: Yari Daily is a 56 year old female with known hx of gastric sleeve surgery, subsequent bowel perforations and multiple abdominal surgeries. She was admitted to OSH with acute abdominal pain and high heart rate. CT showed evidence of bowel perforation and abscess. Acute gastric perforation with associated abscess SVT Sepsis - Initial exam as noted above, pt awake, alert, mod abdominal pain - CT showed intraabdominal air with abscess adjacent to gastric body and fundus - HR in 170s-180s on arrival to ED, now in 70s-80s NSR - 3 L IV fluids given in ED - Temp 99.9F, WBC 12.9 - Consider additional fluid or amiodarone if tachycardia - Flagyl and Vanco given by ED - Goal MAP > 65 mmHg - Expedite transport to [facility] for further workup and care The transport was completed without significant incident or change in the patient's status. The patient was transported to the the [facility] by Rotor (Helicopter) for tertiary and/or quaternary evaluation and management of her Critical Surgical condition(s). Upon arrival to the receiving facility, a [id number] report was given to bedside nursing staff [id number] and Gen Surg residents. Patient care was transferred. The patient condition was Critical and Acutely Ill at the time of transfer. Vital Signs at time care transferred to the receiving facility unit: HR 71bpm, Rhythm NSR, BP 97/62(74) mmHg, RR 16, SpO2 98% on 2 L O2 via NC SPECIAL EQUIPMENT: None MODE OF TRANSPORT: Rotor (Helicopter) CRITICAL CARE TIME:I personally performed 30 minutes of critical care time exclusive of separately billable procedures, ambulance charges and treating other patients. This was necessary to treat or prevent further deterioration of the following condition(s): Acute bowel perforation and associated sepsis and the Cardiovascular impairment, Respiratory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 Abdominal pain 07/17/2016 01/29/2017 Abdominal wall seroma 07/09/2016 01/21/2017 documented as of this encounter (statuses as of 11/13/2021) [facility] Narrative* Problem Noted Date Resolved Date 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/23/2017 01/24/2018 [place] 07/04/2017 07/06/2017 Overview: Bilateral conjunctival redness Decreased vision, 20/200 on snellen chart Describes it as blotches on the chart Headache associated initially, improved with timolol and steroid eye drops as per patient Plan: Opthalmology consult Continue timolol eye drops for IOP control Inflammatory arthritis 07/03/2017 8 Abdominal pain 07/17/2016 01/29/2017 Abdominal wall seroma 07/09/2016 01/21/2017 documented as of this encounter (statuses as of 11/13/2021) [facility] Past illness Narrative* Problem Noted Date Resolved Date 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/23/2017 01/24/2018 [place] 07/04/2017 07/06/2017 Overview: Bilateral conjunctival redness Decreased vision, 20/200 on snellen chart Describes it as blotches on the chart Headache associated initially, improved with timolol and steroid eye drops as per patient Plan: Opthalmology consult Continue timolol eye drops for IOP control Inflammatory arthritis 07/03/2017 8 Abdominal pain 07/17/2016 01/29/2017 Abdominal wall seroma 07/09/2016 01/21/2017 documented as of this encounter (statuses as of 11/14/2021) [facility] Past illness Narrative* Problem Noted Date Resolved Date 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/23/2017 01/24/2018 [place] 07/04/2017 07/06/2017 Overview: Bilateral conjunctival redness Decreased vision, 20/200 on snellen chart Describes it as blotches on the chart Headache associated initially, improved with timolol and steroid eye drops as per patient Plan: Opthalmology consult Continue timolol eye drops for IOP control Inflammatory arthritis 07/03/2017 8 Abdominal pain 07/17/2016 01/29/2017 Abdominal wall seroma 07/09/2016 01/21/2017 documented as of this encounter (statuses as of 11/28/2021) [place] [id number] History of Past illness Narrative* Problem Noted Date Resolved Date 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/23/2017 01/24/2018 [place] 07/04/2017 07/06/2017 Overview: Bilateral conjunctival redness Decreased vision, 20/200 on snellen chart Describes it as blotches on the chart Headache associated initially, improved with timolol and steroid eye drops as per patient Plan: Opthalmology consult Continue timolol eye drops for IOP control Inflammatory arthritis 07/03/2017 8 Abdominal pain 07/17/2016 01/29/2017 Abdominal wall seroma 07/09/2016 01/21/2017 documented as of this encounter (statuses as of 11/30/2021) [facility] Past illness Narrative* Problem Noted Date Resolved Date 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/23/2017 01/24/2018 [place] 07/04/2017 07/06/2017 Overview: Bilateral conjunctival redness Decreased vision, 20/200 on snellen chart Describes it as blotches on the chart Headache associated initially, improved with timolol and steroid eye drops as per patient Plan: Opthalmology consult Continue timolol eye drops for IOP control Inflammatory arthritis 07/03/2017 8 Abdominal pain 07/17/2016 01/29/2017 Abdominal wall seroma 07/09/2016 01/21/2017 documented as of this encounter (statuses as of 12/02/2021) [facility] of Past illness Narrative* Problem Noted Date Resolved Date 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/23/2017 01/24/2018 [place] 07/04/2017 07/06/2017 Overview: Bilateral conjunctival redness Decreased vision, 20/200 on snellen chart Describes it as blotches on the chart Headache associated initially, improved with timolol and steroid eye drops as per patient Plan: Opthalmology consult Continue timolol eye drops for IOP control Inflammatory arthritis 07/03/2017 8 Abdominal pain 07/17/2016 01/29/2017 Abdominal wall seroma 07/09/2016 01/21/2017 documented as of this encounter (statuses as of 12/03/2021) [facility] History of Past illness Narrative* Problem Noted Date Resolved Date 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/23/2017 01/24/2018 [place] 07/04/2017 07/06/2017 Overview: Bilateral conjunctival redness Decreased vision, 20/200 on snellen chart Describes it as blotches on the chart Headache associated initially, improved with timolol and steroid eye drops as per patient Plan: Opthalmology consult Continue timolol eye drops for IOP control Inflammatory arthritis 07/03/2017 8 Abdominal pain 07/17/2016 01/29/2017 Abdominal wall seroma 07/09/2016 01/21/2017 documented as of this encounter (statuses as of 12/03/2021) [facility] History of Past illness Narrative* Problem Noted Date Resolved Date 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/23/2017 01/24/2018 [place] 07/04/2017 07/06/2017 Overview: Bilateral conjunctival redness Decreased vision, 20/200 on snellen chart Describes it as blotches on the chart Headache associated initially, improved with timolol and steroid eye drops as per patient Plan: Opthalmology consult Continue timolol eye drops for IOP control Inflammatory arthritis 07/03/2017 8 Abdominal pain 07/17/2016 01/29/2017 Abdominal wall seroma 07/09/2016 01/21/2017 documented as of this encounter (statuses as of 12/03/2021) [facility] History of Past illness Narrative* Problem Noted Date Resolved Date 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/23/2017 01/24/2018 [place] 07/04/2017 07/06/2017 Overview: Bilateral conjunctival redness Decreased vision, 20/200 on snellen chart Describes it as blotches on the chart Headache associated initially, improved with timolol and steroid eye drops as per patient Plan: Opthalmology consult Continue timolol eye drops for IOP control Inflammatory arthritis 07/03/2017 8 Abdominal pain 07/17/2016 01/29/2017 Abdominal wall seroma 07/09/2016 01/21/2017 documented as of this encounter (statuses as of 12/13/2021) [facility] of Past illness Narrative* Problem Noted Date Resolved Date 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/23/2017 01/24/2018 [place] 07/04/2017 07/06/2017 Overview: Bilateral conjunctival redness Decreased vision, 20/200 on snellen chart Describes it as blotches on the chart Headache associated initially, improved with timolol and steroid eye drops as per patient Plan: Opthalmology consult Continue timolol eye drops for IOP control Inflammatory arthritis 07/03/2017 8 Abdominal pain 07/17/2016 01/29/2017 Abdominal wall seroma 07/09/2016 01/21/2017 documented as of this encounter (statuses as of 12/19/2021) [facility] History of Past illness Narrative* Problem Noted Date Resolved Date 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/23/2017 01/24/2018 [place] 07/04/2017 07/06/2017 Overview: Bilateral conjunctival redness Decreased vision, 20/200 on snellen chart Describes it as blotches on the chart Headache associated initially, improved with timolol and steroid eye drops as per patient Plan: Opthalmology consult Continue timolol eye drops for IOP control Inflammatory arthritis 07/03/2017 8 Abdominal pain 07/17/2016 01/29/2017 Abdominal wall seroma 07/09/2016 01/21/2017 documented as of this encounter (statuses as of 12/22/2021) [facility] History of Past illness Narrative* Problem Noted Date Resolved Date 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/23/2017 01/24/2018 [place] 07/04/2017 07/06/2017 Overview: Bilateral conjunctival redness Decreased vision, 20/200 on snellen chart Describes it as blotches on the chart Headache associated initially, improved with timolol and steroid eye drops as per patient Plan: Opthalmology consult Continue timolol eye drops for IOP control Inflammatory arthritis 07/03/2017 8 Abdominal pain 07/17/2016 01/29/2017 Abdominal wall seroma 07/09/2016 01/21/2017 documented as of this encounter (statuses as of 01/06/2022) [facility] History of Past illness Narrative* Problem Noted Date Resolved Date 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/23/2017 01/24/2018 [place] 07/04/2017 07/06/2017 Overview: Bilateral conjunctival redness Decreased vision, 20/200 on snellen chart Describes it as blotches on the chart Headache associated initially, improved with timolol and steroid eye drops as per patient Plan: Opthalmology consult Continue timolol eye drops for IOP control Inflammatory arthritis 07/03/2017 8 Abdominal pain 07/17/2016 01/29/2017 Abdominal wall seroma 07/09/2016 01/21/2017 documented as of this encounter (statuses as of 01/22/2022) [facility] History of Past illness Narrative* Problem Noted Date Resolved Date 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/23/2017 01/24/2018 [place] 07/04/2017 07/06/2017 Overview: Bilateral conjunctival redness Decreased vision, 20/200 on snellen chart Describes it as blotches on the chart Headache associated initially, improved with timolol and steroid eye drops as per patient Plan: Opthalmology consult Continue timolol eye drops for IOP control Inflammatory arthritis 07/03/2017 8 Abdominal pain 07/17/2016 01/29/2017 Abdominal wall seroma 07/09/2016 01/21/2017 documented as of this encounter (statuses as of 01/22/2022) [facility] History of Past illness Narrative* Problem Noted Date Resolved Date 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/23/2017 01/24/2018 [place] 07/04/2017 07/06/2017 Overview: Bilateral conjunctival redness Decreased vision, 20/200 on snellen chart Describes it as blotches on the chart Headache associated initially, improved with timolol and steroid eye drops as per patient Plan: Opthalmology consult Continue timolol eye drops for IOP control Inflammatory arthritis 07/03/2017 8 Abdominal pain 07/17/2016 01/29/2017 Abdominal wall seroma 07/09/2016 01/21/2017 documented as of this encounter (statuses as of 02/05/2022) [facility] History of Past illness Narrative* Problem Noted Date Resolved Date 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/23/2017 01/24/2018 [place] 07/04/2017 07/06/2017 Overview: Bilateral conjunctival redness Decreased vision, 20/200 on snellen chart Describes it as blotches on the chart Headache associated initially, improved with timolol and steroid eye drops as per patient Plan: Opthalmology consult Continue timolol eye drops for IOP control Inflammatory arthritis 07/03/2017 8 Abdominal pain 07/17/2016 01/29/2017 Abdominal wall seroma 07/09/2016 01/21/2017 documented as of this encounter (statuses as of 02/16/2022) [facility] History of Past illness Narrative* Problem Noted Date Resolved Date 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/23/2017 01/24/2018 [place] 07/04/2017 07/06/2017 Overview: Bilateral conjunctival redness Decreased vision, 20/200 on snellen chart Describes it as blotches on the chart Headache associated initially, improved with timolol and steroid eye drops as per patient Plan: Opthalmology consult Continue timolol eye drops for IOP control Inflammatory arthritis 07/03/2017 8 Abdominal pain 07/17/2016 01/29/2017 Abdominal wall seroma 07/09/2016 01/21/2017 documented as of this encounter (statuses as of 02/27/2022) [facility] History of Past illness Narrative* Problem Noted Date Resolved Date 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/23/2017 01/24/2018 [place] 07/04/2017 07/06/2017 Overview: Bilateral conjunctival redness Decreased vision, 20/200 on snellen chart Describes it as blotches on the chart Headache associated initially, improved with timolol and steroid eye drops as per patient Plan: Opthalmology consult Continue timolol eye drops for IOP control Inflammatory arthritis 07/03/2017 8 Abdominal pain 07/17/2016 01/29/2017 Abdominal wall seroma 07/09/2016 01/21/2017 documented as of this encounter (statuses as of 03/13/2022) [facility] History of Past illness Narrative* Problem Noted Date Resolved Date 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/23/2017 01/24/2018 [place] 07/04/2017 07/06/2017 Overview: Bilateral conjunctival redness Decreased vision, 20/200 on snellen chart Describes it as blotches on the chart Headache associated initially, improved with timolol and steroid eye drops as per patient Plan: Opthalmology consult Continue timolol eye drops for IOP control Inflammatory arthritis 07/03/2017 8 Abdominal pain 07/17/2016 01/29/2017 Abdominal wall seroma 07/09/2016 01/21/2017 documented as of this encounter (statuses as of 03/13/2022) [facility] History of Past illness Narrative* Problem Noted Date Resolved Date 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/23/2017 01/24/2018 [place] 07/04/2017 07/06/2017 Overview: Bilateral conjunctival redness Decreased vision, 20/200 on snellen chart Describes it as blotches on the chart Headache associated initially, improved with timolol and steroid eye drops as per patient Plan: Opthalmology consult Continue timolol eye drops for IOP control Inflammatory arthritis 07/03/2017 8 Abdominal pain 07/17/2016 01/29/2017 Abdominal wall seroma 07/09/2016 01/21/2017 documented as of this encounter (statuses as of 03/19/2022) [facility] History of Past illness Narrative* Problem Noted Date Resolved Date 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/23/2017 01/24/2018 [place] 07/04/2017 07/06/2017 Overview: Bilateral conjunctival redness Decreased vision, 20/200 on snellen chart Describes it as blotches on the chart Headache associated initially, improved with timolol and steroid eye drops as per patient Plan: Opthalmology consult Continue timolol eye drops for IOP control Inflammatory arthritis 07/03/2017 8 Abdominal pain 07/17/2016 01/29/2017 Abdominal wall seroma 07/09/2016 01/21/2017 documented as of this encounter (statuses as of 03/25/2022) [facility] History of Past illness Narrative* Problem Noted Date Resolved Date 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/23/2017 01/24/2018 [place] 07/04/2017 07/06/2017 Overview: Bilateral conjunctival redness Decreased vision, 20/200 on snellen chart Describes it as blotches on the chart Headache associated initially, improved with timolol and steroid eye drops as per patient Plan: Opthalmology consult Continue timolol eye drops for IOP control Inflammatory arthritis 07/03/2017 8 Abdominal pain 07/17/2016 01/29/2017 Abdominal wall seroma 07/09/2016 01/21/2017 documented as of this encounter (statuses as of 04/03/2022) [facility] History of Past illness Narrative* Problem Noted Date Resolved Date 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/23/2017 01/24/2018 [place] 07/04/2017 07/06/2017 Overview: Bilateral conjunctival redness Decreased vision, 20/200 on snellen chart Describes it as blotches on the chart Headache associated initially, improved with timolol and steroid eye drops as per patient Plan: Opthalmology consult Continue timolol eye drops for IOP control Inflammatory arthritis 07/03/2017 8 Abdominal pain 07/17/2016 01/29/2017 Abdominal wall seroma 07/09/2016 01/21/2017 documented as of this encounter (statuses as of 04/22/2022) [facility] History of Past illness Narrative* Problem Noted Date Resolved Date 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/23/2017 01/24/2018 [place] 07/04/2017 07/06/2017 Overview: Bilateral conjunctival redness Decreased vision, 20/200 on snellen chart Describes it as blotches on the chart Headache associated initially, improved with timolol and steroid eye drops as per patient Plan: Opthalmology consult Continue timolol eye drops for IOP control Inflammatory arthritis 07/03/2017 8 Abdominal pain 07/17/2016 01/29/2017 Abdominal wall seroma 07/09/2016 01/21/2017 documented as of this encounter (statuses as of 05/06/2022) [facility]2018 History of Past illness Narrative* Problem Noted Date Resolved Date 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/23/2017 01/24/2018 [place] [facility] 07/04/2017 07/06/2017 Overview: Bilateral conjunctival redness Decreased vision, 20/200 on snellen chart Describes it as blotches on the chart Headache associated initially, improved with timolol and steroid eye drops as per patient Plan: Opthalmology consult Continue timolol eye drops for IOP control Inflammatory arthritis 07/03/2017 8 Abdominal pain 07/17/2016 01/29/2017 Abdominal wall seroma 07/09/2016 01/21/2017 documented as of this encounter (statuses as of 05/19/2022) [facility]2018 History of Past illness Narrative* Problem Noted Date Resolved Date 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/23/2017 01/24/2018 [place] [facility] 07/04/2017 07/06/2017 Overview: Bilateral conjunctival redness Decreased vision, 20/200 on snellen chart Describes it as blotches on the chart Headache associated initially, improved with timolol and steroid eye drops as per patient Plan: Opthalmology consult Continue timolol eye drops for IOP control Inflammatory arthritis 07/03/2017 8 Abdominal pain 07/17/2016 01/29/2017 Abdominal wall seroma 07/09/2016 01/21/2017 documented as of this encounter (statuses as of 05/19/2022) [facility] History of Past illness Narrative* Problem Noted Date Resolved Date 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/23/2017 01/24/2018 [place] [facility] 07/04/2017 07/06/2017 Overview: Bilateral conjunctival redness Decreased vision, 20/200 on snellen chart Describes it as blotches on the chart Headache associated initially, improved with timolol and steroid eye drops as per patient Plan: Opthalmology consult Continue timolol eye drops for IOP control Inflammatory arthritis 07/03/2017 8 Abdominal pain 07/17/2016 01/29/2017 Abdominal wall seroma 07/09/2016 01/21/2017 documented as of this encounter (statuses as of 08/31/2022) [facility] History of Past illness Narrative* Problem Noted Date Resolved Date 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/23/2017 01/24/2018 [place] [facility] 07/04/2017 07/06/2017 Overview: Bilateral conjunctival redness Decreased vision, 20/200 on snellen chart Describes it as blotches on the chart Headache associated initially, improved with timolol and steroid eye drops as per patient Plan: Opthalmology consult Continue timolol eye drops for IOP control Inflammatory arthritis 07/03/2017 8 Abdominal pain 07/17/2016 01/29/2017 Abdominal wall seroma 07/09/2016 01/21/2017 documented as of this encounter (statuses as of 09/08/2022) [facility] History of Past illness Narrative* Problem Noted Date Resolved Date 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/23/2017 01/24/2018 [place] [facility] 07/04/2017 07/06/2017 Overview: Bilateral conjunctival redness Decreased vision, 20/200 on snellen chart Describes it as blotches on the chart Headache associated initially, improved with timolol and steroid eye drops as per patient Plan: Opthalmology consult Continue timolol eye drops for IOP control Inflammatory arthritis 07/03/2017 8 Abdominal pain 07/17/2016 01/29/2017 Abdominal wall seroma 07/09/2016 01/21/2017 documented as of this encounter (statuses as of 09/15/2022) [facility] History of Past illness Narrative* Problem Noted Date Resolved Date 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/23/2017 01/24/2018 [place] [facility] 07/04/2017 07/06/2017 Overview: Bilateral conjunctival redness Decreased vision, 20/200 on snellen chart Describes it as blotches on the chart Headache associated initially, improved with timolol and steroid eye drops as per patient Plan: Opthalmology consult Continue timolol eye drops for IOP control Inflammatory arthritis 07/03/2017 8 Abdominal pain 07/17/2016 01/29/2017 Abdominal wall seroma 07/09/2016 01/21/2017 documented as of this encounter (statuses as of 09/21/2022) [facility] History of Past illness Narrative* Problem Noted Date Resolved Date 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/23/2017 01/24/2018 [place] [facility] 07/04/2017 07/06/2017 Overview: Bilateral conjunctival redness Decreased vision, 20/200 on snellen chart Describes it as blotches on the chart Headache associated initially, improved with timolol and steroid eye drops as per patient Plan: Opthalmology consult Continue timolol eye drops for IOP control Inflammatory arthritis 07/03/2017 8 Abdominal pain 07/17/2016 01/29/2017 Abdominal wall seroma 07/09/2016 01/21/2017 documented as of this encounter (statuses as of 09/21/2022) [facility] History of Past illness Narrative* Problem Noted Date Resolved Date 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/23/2017 01/24/2018 [place] [facility] 07/04/2017 07/06/2017 Overview: Bilateral conjunctival redness Decreased vision, 20/200 on snellen chart Describes it as blotches on the chart Headache associated initially, improved with timolol and steroid eye drops as per patient Plan: Opthalmology consult Continue timolol eye drops for IOP control Inflammatory arthritis 07/03/2017 8 Abdominal pain 07/17/2016 01/29/2017 Abdominal wall seroma 07/09/2016 01/21/2017 documented as of this encounter (statuses as of 09/24/2022) [facility] History of Past illness Narrative* Problem Noted Date Resolved Date 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/23/2017 01/24/2018 [place] [facility] 07/04/2017 07/06/2017 Overview: Bilateral conjunctival redness Decreased vision, 20/200 on snellen chart Describes it as blotches on the chart Headache associated initially, improved with timolol and steroid eye drops as per patient Plan: Opthalmology consult Continue timolol eye drops for IOP control Inflammatory arthritis 07/03/2017 8 Abdominal pain 07/17/2016 01/29/2017 Abdominal wall seroma 07/09/2016 01/21/2017 documented as of this encounter (statuses as of 09/29/2022) [facility] History of Past illness Narrative* Problem Noted Date Resolved Date 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/23/2017 01/24/2018 [place] [facility] 07/04/2017 07/06/2017 Overview: Bilateral conjunctival redness Decreased vision, 20/200 on snellen chart Describes it as blotches on the chart Headache associated initially, improved with timolol and steroid eye drops as per patient Plan: Opthalmology consult Continue timolol eye drops for IOP control Inflammatory arthritis 07/03/2017 8 Abdominal pain 07/17/2016 01/29/2017 Abdominal wall seroma 07/09/2016 01/21/2017 documented as of this encounter (statuses as of 11/29/2022) [facility] History of Past illness Narrative* Problem Noted Date Resolved Date 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/23/2017 01/24/2018 [place] [facility] 07/04/2017 07/06/2017 Overview: Bilateral conjunctival redness Decreased vision, 20/200 on snellen chart Describes it as blotches on the chart Headache associated initially, improved with timolol and steroid eye drops as per patient Plan: Opthalmology consult Continue timolol eye drops for IOP control Inflammatory arthritis 07/03/2017 8 Abdominal pain 07/17/2016 01/29/2017 Abdominal wall seroma 07/09/2016 01/21/2017 documented as of this encounter (statuses as of 12/18/2022) [facility] History of Past illness Narrative* Problem Noted Date Diagnosed Date Resolved Date 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/23/2017 8 [place] [facility] 07/04/2017 07/06/2017 Overview: Bilateral conjunctival redness Decreased vision, 20/200 on snellen chart Describes it as blotches on the chart Headache associated initially, improved with timolol and steroid eye drops as per patient Plan: Opthalmology consult Continue timolol eye drops for IOP control Inflammatory arthritis 07/03/201701/24 Abdominal pain 07/17/2016 01/29/2017 Abdominal wall seroma 07/09/20162016 documented as of this encounter (statuses as of 02/12/2023) [facility] History of Past illness Narrative* Problem Noted Date Diagnosed Date Resolved Date 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/23/2017 8 [place] [facility] 07/04/2017 07/06/2017 Overview: Bilateral conjunctival redness Decreased vision, 20/200 on snellen chart Describes it as blotches on the chart Headache associated initially, improved with timolol and steroid eye drops as per patient Plan: Opthalmology consult Continue timolol eye drops for IOP control Inflammatory arthritis 07/03/201701/24 Abdominal pain 07/17/2016 01/29/2017 Abdominal wall seroma 07/09/20162016 documented as of this encounter (statuses as of 02/12/2023) [facility] History of Past illness Narrative* Problem Noted Date Diagnosed Date Resolved Date 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/23/2017 8 [place] [facility] 07/04/2017 07/06/2017 Overview: Bilateral conjunctival redness Decreased vision, 20/200 on snellen chart Describes it as blotches on the chart Headache associated initially, improved with timolol and steroid eye drops as per patient Plan: Opthalmology consult Continue timolol eye drops for IOP control Inflammatory arthritis 07/03/201701/24 Abdominal pain 07/17/2016 01/29/2017 Abdominal wall seroma 07/09/20162016 documented as of this encounter (statuses as of 02/12/2023) [facility] [place] [facility] Diagnosis Complications of bariatric procedures- Primary Other complications of other bariatric procedure 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 [facility] [place] [facility] Diagnosis Gastric anastomotic leak- Primary Other digestive system complications Complications of bariatric procedures Other complications of other bariatric procedure [facility] [place] [facility] Diagnosis Complication of bariatric procedure- Primary Generalized abdominal pain Abdominal pain, generalized Anastomotic leak of stomach Other digestive system complications Complications of bariatric procedures Other complications of other bariatric procedure S/P laparoscopic sleeve gastrectomy Bariatric surgery status [facility] [place] [facility] Diagnosis Complications of bariatric procedures Other complications of other bariatric procedure 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 [facility] [place] [facility] Diagnosis Complications of bariatric procedures- Primary Other complications of other bariatric procedure 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 [facility] [place] [facility] Diagnosis Complications of bariatric procedures Other complications of other bariatric procedure 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 [facility] [place] [facility] Diagnosis Complications of bariatric procedures- Primary Other complications of other bariatric procedure Gastric anastomotic leak Other digestive system complications [facility] [place] [facility] Diagnosis Complications of bariatric procedures- Primary Other complications of other bariatric procedure Gastric anastomotic leak Other digestive system complications [facility] [place] [facility] Diagnosis Complications of bariatric procedures- Primary Other complications of other bariatric procedure Gastric anastomotic leak Other digestive system complications S/P laparoscopic sleeve gastrectomy Bariatric surgery status Generalized abdominal pain Abdominal pain, generalized [facility] [place] [facility] Diagnosis Nausea Nausea alone [facility] [place] [facility] Diagnosis Nausea Nausea alone [facility] [place] [facility] Diagnosis Complications of bariatric procedures Other complications of other bariatric procedure Gastric anastomotic leak Other digestive system complications [facility] [place] [facility] Diagnosis Mild protein-calorie malnutrition (HCC)- Primary Malnutrition of mild degree [facility] [place] [facility]* Diagnosis Gastric leak- Primary Other digestive system complications [facility] [place] [facility]* Diagnosis H/O gastric sleeve- Primary Gastric leak Other digestive system complications Preoperative examination Preoperative examination, unspecified documented in this encounter [facility] note* Diagnosis Pre-op exam- Primary Preoperative examination, unspecified S/P gastrectomy Other postprocedural status Gastric leak Other digestive system complications Chronic obstructive pulmonary disease, unspecified COPD type (HCC) GAGE (obstructive sleep apnea) Obstructive sleep apnea (adult) (pediatric) Congenital 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 Congenital hypothyroidism H/O gastric sleeve Gastric leak Other digestive system complications [facility] [place] [facility]* Diagnosis Bariatric surgery status- Primary documented in this encounter [facility] note* Diagnosis S/P partial gastrectomy- Primary Other postprocedural status Overweight (BMI 25.0-29.9) Overweight Dietary counseling and surveillance Dietary surveillance and counseling documented in this encounter [facility] note* Diagnosis S/P partial gastrectomy- Primary Other postprocedural status BMI 23.0-23.9, adult Dietary counseling and surveillance Dietary surveillance and counseling documented in this encounter [facility] note* Diagnosis S/P bariatric surgery- Primary Bariatric surgery status documented in this encounter [facility] note* Diagnosis Onset Date Resolution Status Chest pain, rule out acute myocardial infarction acute Coronary vasospasm acute Hypothyroidism acute NSTEMI (non-ST elevated myocardial infarction) acute [facility] Work Phone: Evaluation note* Diagnosis Recurrent incisional hernia- Primary [facility] [place] [facility]* Diagnosis Recurrent incisional hernia- Primary documented in this encounter [facility] note* Diagnosis Preoperative examination- Primary Preoperative examination, unspecified Incisional hernia, without obstruction or gangrene Incisional hernia without mention of obstruction or gangrene Infected hernioplasty mesh, sequela Preoperative examination Preoperative examination, unspecified Incisional hernia, without obstruction or gangrene Incisional hernia without mention of obstruction or gangrene Infected hernioplasty mesh, sequela documented in this encounter [facility] note* Diagnosis Pre-op evaluation- Primary Preoperative examination, unspecified Congenital 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 Congenital hypothyroidism GAGE (obstructive sleep apnea) Obstructive sleep apnea (adult) (pediatric) Chronic obstructive pulmonary disease, unspecified COPD type ([facility]) History of non-ST elevation myocardial infarction (NSTEMI) Old myocardial infarction Former smoker Personal history of tobacco use, presenting hazards to health Hyperlipidemia, unspecified hyperlipidemia type Gastroesophageal reflux disease without esophagitis Esophageal reflux Jennifer's disease (HCC) Jennifer's disease Essential hypertension Unspecified essential hypertension History of coronary vasospasm Personal history of other diseases of circulatory system SVT (supraventricular tachycardia) ([facility]) Other specified cardiac dysrhythmias Preoperative examination Preoperative examination, unspecified Incisional hernia, without obstruction or gangrene Incisional hernia without mention of obstruction or gangrene Infected hernioplasty mesh, sequela [facility] Diagnosis S/P repair of ventral hernia- Primary Other postprocedural status Postoperative pain Other acute postoperative pain [facility] [place] [facility] Diagnosis S/P repair of ventral hernia- Primary Other postprocedural status Infection in abdomen ([facility]) Unspecified peritonitis [facility] [place] [facility] Diagnosis S/P repair of ventral hernia Other postprocedural status Postoperative pain Other acute postoperative pain [facility] Diagnosis S/P repair of ventral hernia- Primary Other postprocedural status Mild protein-calorie malnutrition ([facility]) Malnutrition of mild degree Obesity, Class III, BMI 40-49.9 (morbid obesity) ([facility]) Morbid obesity [facility] Diagnosis S/P repair of ventral hernia- Primary Other postprocedural status [facility] [place] [facility] Diagnosis Complications of bariatric procedures Other complications of other bariatric procedure Gastric anastomotic leak Other digestive system complications [facility] Diagnosis Gastric anastomotic leak Other digestive system complications Complications of bariatric procedures Other complications of other bariatric procedure [facility] Diagnosis S/P repair of ventral hernia- Primary Other postprocedural status Lower abdominal pain Abdominal pain, other specified site [facility] Diagnosis S/P repair of ventral hernia- Primary Other postprocedural status Lower abdominal pain Abdominal pain, other specified site [facility] Diagnosis S/P repair of ventral hernia- Primary Other postprocedural status [facility] [place] [facility]* Diagnosis S/P repair of ventral hernia Other postprocedural status Lower abdominal pain Abdominal pain, other specified site [facility] [place] [facility]* Diagnosis Abdominal wall pain- Primary Abdominal pain, unspecified site documented [facility] [place] [facility]* Diagnosis Infection in abdomen (HCC) Unspecified peritonitis documented [facility] [place] [facility]* Diagnosis S/P repair of ventral hernia- Primary Other postprocedural status documented [facility] [place] [facility]* Diagnosis Abdominal wall fluid collections- Primary Other ascites Acute postoperative pain Other acute postoperative pain [facility] [place] [facility]* Diagnosis Acute postoperative pain Other acute postoperative pain [facility] [place] [facility]* Diagnosis Abdominal wall fluid collections- Primary Other ascites [facility] [place] [facility]* Diagnosis Pre-op examination- Primary Preoperative examination, unspecified Abdominal fluid collection Other ascites Pre-op examination Preoperative examination, unspecified Abdominal fluid collection Other ascites [facility] [place] [facility]* Diagnosis Preoperative examination Preoperative examination, unspecified Incisional hernia, without obstruction or gangrene Incisional hernia without mention of obstruction or gangrene Infected hernioplasty mesh, sequela Essential hypertension Unspecified essential hypertension Hyperlipidemia, unspecified hyperlipidemia type GAGE (obstructive sleep apnea) Obstructive sleep apnea (adult) (pediatric) Chronic obstructive pulmonary disease, unspecified COPD type (HCC) Gastroesophageal reflux disease without esophagitis Esophageal reflux Congenital 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 Congenital hypothyroidism SVT (supraventricular tachycardia) Other specified cardiac dysrhythmias History of non-ST elevation myocardial infarction (NSTEMI) Old myocardial infarction Pre-op examination Preoperative examination, unspecified Abdominal fluid collection Other ascites [facility] [place] [facility]* Diagnosis Encounter for postoperative wound check- Primary Other specified aftercare following surgery [facility] [place] [facility]* Diagnosis Acute pain of left shoulder- Primary [facility] [place] [facility]* Diagnosis Encounter for postoperative wound check- Primary Other specified aftercare following surgery [facility] [place] [facility]* Diagnosis Closed nondisplaced fracture of anterior process of right calcaneus with routine healing, subsequent encounter- Primary Postmenopausal Asymptomatic postmenopausal status (age-related) (natural) [facility] Diagnosis Acquired hypothyroidism- Primary Unspecified hypothyroidism Surgical wound infection Other postoperative infection Candidiasis of skin Candidiasis of skin and nails Overweight (BMI 25.0-29.9) Overweight Motion sickness, initial encounter [facility] Diagnosis Preop examination- Primary Unspecified pre-operative examination Calcific tendonitis of left shoulder Internal derangement of left shoulder [facility] Diagnosis Internal derangement of left shoulder- Primary documented in this encounter [facility]* Diagnosis Internal derangement of left shoulder documented in this encounter [facility]* Diagnosis Internal derangement of left shoulder [facility] Diagnosis S/P arthroscopy of left shoulder- Primary Internal derangement of left shoulder documented in this encounter [facility]* Diagnosis Internal derangement of left shoulder- Primary S/P arthroscopy of left shoulder documented in this encounter [facility]* Diagnosis S/P arthroscopy of left shoulder- Primary Internal derangement of left shoulder documented in this encounter [facility]* Diagnosis S/P arthroscopy of left shoulder- Primary Internal derangement of left shoulder [facility]* Diagnosis Puentes's neuroma of right foot- Primary Right foot pain Pain in soft tissues of limb Right ankle tendonitis Equinus contracture of right ankle Stress fracture of right foot, initial encounter documented in this encounter [facility]* Diagnosis S/P arthroscopy of left shoulder- Primary Internal derangement of left shoulder [facility] encounter [facility] HealthcareEvaluation note* Diagnosis S/P arthroscopy of left shoulder- Primary Internal derangement of left shoulder documented in this encounter [facility]* Diagnosis Internal derangement of left shoulder S/P arthroscopy of left shoulder documented in this encounter [facility]* Diagnosis S/P arthroscopy of left shoulder- Primary Internal derangement of left shoulder Generalized abdominal pain Abdominal pain, generalized documented in this encounter [facility]* Diagnosis S/P arthroscopy of left shoulder- Primary Internal derangement of left shoulder documented in this encounter [facility]* Diagnosis S/P arthroscopy of left shoulder- Primary Internal derangement of left shoulder documented in this encounter [facility]* Diagnosis S/P arthroscopy of left shoulder- Primary Internal derangement of left shoulder documented in this encounter [facility]* Diagnosis S/P arthroscopy of left shoulder- Primary documented in this encounter [facility] of Present illness Narrative* The patient states she has been generally doing well since the last visit. Comorbid Illnesses: hyper lipidemia. * Symptoms: denies chest pain at rest, resolved exertional chest pain, denies dyspnea, denies fatigue, denies exercise intolerance, denies palpitations, denies edema, denies orthopnea, worsened dizziness and worsened orthostatic dizziness. * Associated symptoms: no syncope. * Her symptoms do not limit her activities. * Disease Monitoring: The patient has had a stable weight. * Medications: the patient is adherent with her medication regimen. She denies medication side effects. [facility] DO Work Phone: Hospital Discharge instructions Additional Instructions Follow-up with your temperature regulator pyrometer Return if symptoms are worse Continue current [facility] Work Phone: InstructionsNot on filedocumented in this encounter [facility] SystemInstructionsNot on filedocumented in [facility] encounter [facility] SystemInstructionsNot on filedocumented in this encounter [facility] SystemInstructionsNot on filedocumented in this encounter [facility] ([facility] Outpatient Procedure (Routine) - Authorized Specialty Diagnoses / Procedures Referred By Kattac t Referred To Contact [facility] Diagnoses Complications of bariatric procedures Gastric fistula Procedures EGD - THERAPEUTIC, EUS, OR TUBE INTERVENTIONS EDG US EXAM SURGICAL ALTER STOM DUODENUM/JEJUNUM Edwar Perez MD [address] [place] [address] [facility] [place] [address] Referral ID Status Reason Start Date Expiration Date Visits Requested Visits Authorized [id number] Authorized Auto-Generat ed Referral 09/30/2021 09/30/2022 1 1 [facility] for referral (narrative)* Outpatient Procedure (Routine) - Closed Specialty Diagnoses / Procedures Referred By Contac t Referred To Contact [facility] Diagnoses Complications of bariatric procedures Gastric fistula Procedures EGD - THERAPEUTIC, EUS, OR TUBE INTERVENTIONS EDG US EXAM SURGICAL ALTER STOM DUODENUM/JEJUNUM Edwar Perez MD [address] [place] [address] [address] Referral ID Status Reason Start Date Expiration Date V isits Requested Visits Authorized [id number] Closed Auto-Generate d Referral 09/30/2021 09/30/2022 1 1 [facility] for referral (narrative)* Outpatient Procedure (Routine) - Pending Review Specialty Diagnoses / Procedures Referred By Contac t Referred To [facility] Diagnoses Complications of bariatric procedures Gastric fistula Procedures EGD - THERAPEUTIC, EUS, OR TUBE INTERVENTIONS EDG US EXAM SURGICAL ALTER STOM DUODENUM/JEJUNUM Edwar Perez MD [address] [place] [address] [address] Referral ID Status Reason Start Date Expiration Date Visits Requested Visits Authorized [id number] Pending Review Auto-Generat ed Referral 10/14/2021 10/14/2022 1 1 [facility] for referral (narrative)* Outpatient Procedure (Routine) - Closed Specialty Diagnoses / Procedures Referred By Contac t Referred To [facility] Diagnoses Complications of bariatric procedures Gastric fistula Procedures EGD - THERAPEUTIC, EUS, OR TUBE INTERVENTIONS EDG US EXAM SURGICAL ALTER STOM DUODENUM/JEJUNUM Edwar Perez MD [address] [place] [address] [address] Referral ID Status Reason Start Date Expiration Date V isits Requested Visits Authorized [id number] Closed OON/Self Pay Override 10/27/2021 07/04/2022 1 1 T [facility] for referral (narrative)* Diagnostic Procedure Only (Routine) - Authorized Specialty Diagnoses / Procedures [facility] To [facility] XR IMAGING Diagnoses Complications of bariatric procedures Gastric anastomotic leak Procedures XR UPPER GI SINGLE CONTRAST RADIOLOGIC EXAM UPR GI TRC SINGLE CONTRAST STUDY Edwar Perez MD [address] [place] [address] Xr Imaging Referral ID Status Reason Start Date Expiration Date Visits Requested Visits Authorized [id number] Authorized Auto-Generat ed Referral 11/28/2021 07/04/2022 1 1 [facility] for referral (narrative)* Diagnostic Procedure Only (Routine) - Closed Specialty Diagnoses / Procedures [facility] Referred To Contact XR IMAGING Diagnoses Complications of bariatric procedures Gastric anastomotic leak Procedures XR UPPER GI SINGLE CONTRAST RADIOLOGIC EXAM UPR GI TRC SINGLE CONTRAST STUDY Edwar Perez MD [address] [place] [address] Xr Imaging Referral ID Status Reason Start Date Expiration Date V isits Requested Visits Authorized [id number] Closed Auto-Generate d Referral 11/28/2021 07/04/2022 1 1 T [facility] for visit Narrative* Outpatient Procedure (Routine) - Closed Specialty Diagnoses / Procedures [facility] Referred To Contact [facility] Diagnoses Complications of bariatric procedures Gastric fistula Procedures EGD - THERAPEUTIC, EUS, OR TUBE INTERVENTIONS EDG US EXAM SURGICAL ALTER STOM DUODENUM/JEJUNUM Edwar Perez MD [address] [facility] [facility] [place] [address] [facility] [address] [place], [place] [address] [place] [address] Referral ID Status Reason Start Date Expiration Date V isits Requested Visits Authorized [id number] Closed Auto-Generate d Referral 09/30/2021 09/30/2022 1 1 [facility] for visit Narrative* Outpatient Procedure (Routine) - Closed Specialty Diagnoses / Procedures [facility] Referred To Contact [facility] Diagnoses Complications of bariatric procedures Gastric fistula Procedures EGD - THERAPEUTIC, EUS, OR TUBE INTERVENTIONS EDG US EXAM SURGICAL ALTER STOM DUODENUM/JEJUNUM Edwar Perez MD [address] [place] [address] [facility] [address] [place] [address] Referral ID Status Reason Start Date Expiration Date V isits Requested Visits Authorized [id number] Closed OON/Self Pay Override 10/27/2021 07/04/2022 1 1 [facility] for visit Narrative* Diagnostic Procedure Only (Routine) - Closed Specialty Diagnoses / Procedures [facility] Referred To Contact XR IMAGING Diagnoses Complications of bariatric procedures Gastric anastomotic leak Procedures XR UPPER GI SINGLE CONTRAST RADIOLOGIC EXAM UPR GI TRC SINGLE CONTRAST STUDY Edwar Perez MD [address] [place] [address] Xr Imaging Referral ID Status Reason Start Date Expiration Date V isits Requested Visits Authorized [id number] Closed Auto-Generate d Referral 11/28/2021 07/04/2022 1 1 [facility] for visit Narrative* Consultation (Routine) - Authorized Specialty Diagnoses / Procedures [facility] Referred To Contact Physical Therapy Diagnoses S/P arthroscopy of left shoulder Internal derangement of left shoulder Procedures [place] OFFICE/OUTPATIENT [facility] Marianne Dang PA [address] [place] [address] Phone: tel: fax: Elvira Martin PT Referral ID Status Reason Start Date Expiration Date Visits Requested Visits Authorized [id number] Authorized Consult and Treat 06/13/2024 09/10/2024 12 12 [facility] for visit Narrative* Consultation (Routine) - Closed Specialty Diagnoses / Procedures [facility] Referred To Contact Physical Therapy Diagnoses S/P arthroscopy of left shoulder Internal derangement of left shoulder Procedures [place] OFFICE/OUTPATIENT [facility] Marianne Dang, MELVIN [address] [facility] [address] [place] [address] Phone: tel: fax: Elvira Martin, MAKAYLA Referral ID Status Reason Start Date Expiration Date V isits Requested Visits Authorized [id number] Closed Consult and Treat 06/13/2024 09/10/2024 12 12 [facility] Narrative* Consultation (Routine) - Authorized Specialty Diagnoses / Procedures Referred By Contac t Referred To Contact Physical Therapy Diagnoses S/P arthroscopy of left shoulder Internal derangement of left shoulder Procedures AK THER PX 1/> AREAS EACH 15 MIN NEUROMUSC REEDUCA AK MANUAL THERAPY TQS 1/> REGIONS EACH 15 MINUTES AK THERAPEUTIC PX 1/> AREAS EACH 15 MIN EXERCISES PHYS/OCC THERAPY SS Marianne Dang PA [address] [facility] [address] [place] [address] Phone: tel: fax: Elvira Martin, MAKAYLA Referral ID Status Reason Start Date Expiration Date Visits Requested Visits Authorized [id number] Authorized Consult and Treat 07/13/2024 10/11/2024 14 14 [facility] Summary Purpose Family History No Family History Records Found Relationship Condition Age at Onset Recorded Date/T jam Not Specified Diabetes mellitus Unknown Congestive heart failure Unknown father Presence of cardiac pacemaker Unknown Chronic obstructive pulmonary disease Unk nown Dementia Unknown sister Multiple sclerosis Unknown Unknown Family Member Name Dates Details Family history of cardiac pa cemaker: Father(V17.49, Z82.49) Status:Active Family history of congestive heart failure: Mother(V17.49, Z82.49) Status:Active S/P insertion of non-drug el uting coronary artery stent: Mother(V45.82, Z95.5) Status:Active Family history of multiple s clerosis: Sister(V17.2, Z82.0) Status:Active Unknown Family Member Name Dates Details Family history of cardiac pa cemaker: Father(V17.49, Z82.49) Status:Active Family history of congestive heart failure: Mother(V17.49, Z82.49) Status:Active S/P insertion of non-drug el uting coronary artery stent: Mother(V45.82, Z95.5) Status:Active Family history of multiple s clerosis: Sister(V17.2, Z82.0) Status:Active Advance Directives No Advanced Directives Records FoundDocuments on File Type Date Recorded Patient Store Director Expl anation ACP-Advance Directive ACP-Power of Cushion Spring Assembler Documents on File Type Date Recorded Patient Store Director Expl anation Advance Directive(s) 07/03/2017 5:44 PM Advance Directive(s) 01/27/2017 4:39 AM Advance Directive(s) 01/04/2017 2:55 PM Advance Directive(s) 01/04/2017 4:00 PM Advance Directive(s) 11/23/2016 11:49 AM Advance Directive(s) 11/23/2016 11:52 AM Documents on File Type Date Recorded Patient Store Director Expl anation Advance Directive(s) 07/03/2017 5:44 PM Advance Directive(s) 01/27/2017 4:39 AM Advance Directive(s) 01/04/2017 2:55 PM Advance Directive(s) 01/04/2017 4:00 PM Advance Directive(s) 11/23/2016 11:49 AM Advance Directive(s) 11/23/2016 11:52 AM Documents on File Type Date Recorded Patient Store Director Expl anation Advance Directive(s) 11/03/2021 8:04 AM Advance Directive(s) 07/03/2017 5:44 PM Advance Directive(s) 01/27/2017 4:39 AM Advance Directive(s) 01/04/2017 2:55 PM Advance Directive(s) 01/04/2017 4:00 PM Advance Directive(s) 11/23/2016 11:49 AM Advance Directive(s) 11/23/2016 11:52 AM Documents on File Type Date Recorded Patient Store Director Expl anation Advance Directive(s) 11/03/2021 8:04 AM Advance Directive(s) 07/03/2017 5:44 PM Advance Directive(s) 01/27/2017 4:39 AM Advance Directive(s) 01/04/2017 2:55 PM Advance Directive(s) 01/04/2017 4:00 PM Advance Directive(s) 11/23/2016 11:49 AM Advance Directive(s) 11/23/2016 11:52 AM Documents on File Type Date Recorded Patient Store Director Expl anation Advance Directive(s) 12/22/2021 2:32 PM Advance Directive(s) 11/03/2021 8:04 AM Advance Directive(s) 07/03/2017 5:44 PM Advance Directive(s) 01/27/2017 4:39 AM Advance Directive(s) 01/04/2017 2:55 PM Advance Directive(s) 01/04/2017 4:00 PM Advance Directive(s) 11/23/2016 11:49 AM Advance Directive(s) 11/23/2016 11:52 AM Documents on File Type Date Recorded Patient Store Director Expl anation Advance Directive(s) 01/25/2022 2:05 AM Advance Directive(s) 12/22/2021 2:32 PM Advance Directive(s) 11/03/2021 8:04 AM Advance Directive(s) 07/03/2017 5:44 PM Advance Directive(s) 01/27/2017 4:39 AM Advance Directive(s) 01/04/2017 2:55 PM Advance Directive(s) 01/04/2017 4:00 PM Advance Directive(s) 11/23/2016 11:49 AM Advance Directive(s) 11/23/2016 11:52 AM Documents on File Type Date Recorded Patient Store Director Expl anation Advance Directive(s) 01/04/2017 4:00 PM Documents on File Type Date Recorded Patient Store Director Expl anation Advance Directive(s) 01/04/2017 4:00 PM Documents on File Type Date Recorded Patient Store Director Expl anation Advance Directive(s) 03/03/2022 5:54 PM Advance Directive Response Recorded Date/ Time Advance Directives No June 07, 2019 3:45pm Documents on File Type Date Recorded Patient Store Director Expl anation Advance Directive(s) 03/03/2022 5:54 PM Reason for Referral Status Reason Specialty Diagnoses / Procedures Referred By Contact Referred To Contact Open Radiology Diagnoses Internal derangement of right shoulder Procedures MRI SHOULDER RIGHT WO CONTRAST Leonard Ac Jr. [address] [facility] [address] [place] [address] Specialty Diagnoses / Procedures Referred By Contac t Referred To Contact CT IMAGING Diagnoses Gastric anastomotic leak Complications of bariatric procedures Procedures CT ABD/PEL W IVCON CT ABD & PELVIS W/CONTRAST Edwar Perez MD [address] [place] [address] Ct Imaging Referral ID Status Reason Start Date Expiration Date Visits Requested Visits Authorized [id number] Authorized Auto-Generat ed Referral OON/Self Pay Override 11/07/2021 11/07/2022 1 1 Specialty Diagnoses / Procedures Referred By Contac t Referred To Contact CT IMAGING Diagnoses Generalized abdominal pain Complication of bariatric procedure Procedures CT ABD/PEL W IVCON CT ABD & PELVIS W/CONTRAST Edwar Perez MD [address] [place] [address] Ct Imaging Referral ID Status Reason Start Date Expiration Date V isits Requested Visits Authorized [id number] Closed Auto-Generate d Referral 09/25/2021 10/25/2022 1 1 Specialty Diagnoses / Procedures Referred By Contac t Referred To Contact CT IMAGING Diagnoses Complications of bariatric procedures Gastric anastomotic leak Procedures CT ABD/PEL W IVCON CT ABD & PELVIS W/CONTRAST Edwar Perez MD [address] [place] [address] Ct Imaging Referral ID Status Reason Start Date Expiration Date Visits Requested Visits Authorized [id number] Authorized Auto-Generat ed Referral 11/13/2021 12/13/2022 1 1 Specialty Diagnoses / Procedures Referred By Contac t Referred To Contact CT IMAGING Diagnoses Nausea Procedures CT ABDOMEN WO IVCON CT ABDOMEN W/O CONTRAST Edwar Perez MD [address] [place] [address] Ct Imaging Referral ID Status Reason Start Date Expiration Date V isits Requested Visits Authorized [id number] Closed Auto-Generate d Referral 12/02/2021 01/01/2023 1 1 Specialty Diagnoses / Procedures Referred By Contac t Referred To Contact Diagnoses H/O gastric sleeve Gastric leak Procedures IN P[place] [address] [place] [address] Referral ID Status Reason Start Date Expiration Date Visits Requested Visits Authorized [id number] Ref Not Required PCP Requested Referral 02/16/2022 05/17/2022 1 1 Specialty Diagnoses / Procedures Referred By Contac t Referred To Contact CT IMAGING Diagnoses Recurrent incisional hernia Procedures CT ABD/PEL WO IVCON CT ABD & PELVIS W/O CONTRAST Connie Crane MD [address] [place] [address] Ct Imaging Referral ID Status Reason Start Date Expiration Date Visits Requested Visits Authorized [id number] Authorized Auto-Generat ed Referral 09/21/2022 10/21/2023 1 1 Specialty Diagnoses / Procedures Referred By Contac t Referred To Contact Diagnoses Preoperative examination Incisional hernia, without obstruction or gangrene Infected hernioplasty mesh, sequela Procedures REFER TO PACC - PRE ANESTHESIA CONSULTATION CLINIC OFFICE/OUTPATIENT [facility] 60-74 MINUTES Abhijit Edmondson, HAND FINISHER.PRODUCTION TECHNOLOGIST [address] [id number] Referral ID Status Reason Start Date Expiration Date Visits Requested Visits Authorized [id number] Authorized PCP Requested Referral 09/24/2022 09/24/2023 1 1 Specialty Diagnoses / Procedures Referred By Contac t Ref[facility] Diagnoses Preoperative examination Incisional hernia, without obstruction or gangrene Infected hernioplasty mesh, sequela Procedures ECG COMPLETE ECG ROUTINE ECG W/LEAST 12 LDS W/I&R Abhijit Edmondson, HAND FINISHER.PRODUCTION TECHNOLOGIST [address] [id number] [facility] [address] [place] [id number] Referral ID Status Reason Start Date Expiration Date Visits Requested Visits Authorized [id number] Pending Review Auto-Generat ed Referral 09/24/2022 09/24/2023 1 1 Specialty Diagnoses / Procedures Referred By Contac t Referred To Contact Diagnoses Preoperative examination Incisional hernia, without obstruction or gangrene Infected hernioplasty mesh, sequela Procedures CONSULT TO [facility] OFFICE/OUTPATIENT [facility] 60-74 MINUTES Abhijit Edmondson, HAND FINISHER.PRODUCTION TECHNOLOGIST [address] [place], [place] [id number] Referral ID Status Reason Start Date Expiration Date Visits Requested Visits Authorized [id number] Authorized PCP Requested Referral 09/24/2022 09/24/2023 1 1 Referral ID Status Reason Start Date Expiration Date V isits Requested Visits Authorized [id number] Closed Auto-Generate d Referral 11/13/2021 12/13/2022 1 1 Referral ID Status Reason Start Date Expiration Date V isits Requested Visits Authorized [id number] Closed Auto-Generate d Referral OON/Self Pay Override 11/07/2021 11/07/2022 1 1 Specialty Diagnoses / Procedures Referred By Contac t Referred To Contact Pain Management Diagnoses S/P repair of ventral hernia Lower abdominal pain Procedures CONSULT TO [facility]) OFFICE/OUTPATIENT [facility] 60-74 MINUTES Abhijit Edmondson APRN.PRODUCTION TECHNOLOGIST [address] [address] Referral ID Status Reason Start Date Expiration Date Visits Requested Visits Authorized [id number] Pending Review PCP Requested Referral 02/18/2023 02/18/2024 1 1 Specialty Diagnoses / Procedures Referred By Contac t Referred To Contact [facility] Diagnoses S/P repair of ventral hernia Lower abdominal pain Procedures CONSULT TO PHYSICAL THERAPY PHYSICAL THERAPY EVALUATION HIGH COMPLEX 45 MINS bAhijit Edmondson, IRISH.PRODUCTION TECHNOLOGIST [address] [address] [facility] [place] [address] Referral ID Status Reason Start Date Expiration Date Visits Requested Visits Authorized [id number] Pending Review Auto-Generat ed Referral 02/18/2023 02/18/2024 1 1 Specialty Diagnoses / Procedures Referred By Contac t Referred To Contact Diagnoses S/P repair of ventral hernia Lower abdominal pain Procedures PROVIDER ORDERED FOLLOW UP OFFICE/OUTPATIENT [facility] MDM 60-74 MINUTES Zuly Montgomery PA-C [address] [place] [address] Referral ID Status Reason Start Date Expiration Date Visits Requested Visits Authorized [id number] Authorized PCP Requested Referral 04/10/2023 03/10/2024 1 1 Specialty Diagnoses / Procedures Referred By Contac t Referred To Contact CT IMAGING Diagnoses Acute postoperative pain Procedures CT ABD/PEL WO IVCON CT ABD & PELVIS W/O CONTRAST Connie Crane MD [address] [place] [address] [place] [address] Referral ID Status Reason Start Date Expiration Date Visits Requested Visits Authorized [id number] Authorized Auto-Generat ed Referral 05/13/2023 06/11/2024 1 1 Referral ID Status Reason Start Date Expiration Date V isits Requested Visits Authorized [id number] Closed Auto-Generate d Referral 05/13/2023 06/11/2024 1 1 Assessments Diagnosis Internal derangement of right shoulder Medications Administered Section Inactive Administered Medications - up to 3 most recent administrations Medication Order MAR Action Action Date Dose Rate Site heparin 100 unit/mL 500 Units injection 500 Units, INTRAVENOUS, ONCE, 1 dose, On Wed10/08/21 at 1300, Recovery or Phase I (only) Given 10/08/2021 1:00 PM EDT 500 Units Lumen-Red lactated ringers iv infusion 30 mL/hr, INTRAVENOUS, CONTINUOUS, Starting on Wed10/08/21 at 0900, Until Destini 10/09/21 at 0419, Preprocedure New Bag/Syringe/Bottl e 10/08/2021 9:00 AM EDT 30 mL/hr 30 mL/hr Inactive Administered Medications - up to 3 most recent administrations Medication Order MAR Action Action Date Dose Rate Site lactated ringers iv infusion 30 mL/hr, INTRAVENOUS, CONTINUOUS, Starting on Wed11/05/21 at 1000, Until Destini 11/06/21 at 0417, Preprocedure New Bag/Syringe/Bottle 11/05/2021 10:00 AM EDT 30 mL/hr 30 mL/hr ondansetron (PF) 4 mg injection (ZOFRAN) 4 mg, INTRAVENOUS, EVERY 6 HOURS NEEDED, 2 doses, Starting on Wed11/05/21 at 0958, Until Destini 11/06/21 at 0417, Nausea/Vomiting - First Line - Parenteral, Give IV push over 2 minutes, Preprocedure Given 11/05/2021 10:03 AM EDT 4 mg Health Concerns Infection Onset Date Last Indicated Resolved Time COVID-19 Rule-Out 12/13/2021 12/13/2021 12/13/2021 6:31 AM EDT Chief Complaint and Reason for Visit Chief Complaint NonSTEMI Reason for Visit Chest pain, rule out acute myocardial infarction Coronary vasospasm Hypothyroidism NSTEMI (non-ST elevated myocardial infarction) Chief Complaint NonSTEMI Chest pain Reason for Visit Chest pain, rule out acute myocardial infarction Coronary vasospasm Hypothyroidism NSTEMI (non-ST elevated myocardial infarction) Chief Complaint * Hospital f/u: 'had to go to the emergency department d/t jaw/chest pain' * YARI DAILY is being seen for chest pain. Additional Source Comments INFORMATION SOURCE (unrecogn ized section and content) DATE CREATED AUTHOR 07/25/2018 [facility] DATE CREATED AUTHOR AUTHOR'S ORGANIZ ATION 02/02/2020 [facility] DATE CREATED AUTHOR AUTHOR'S ORGANIZ ATION 05/09/2020 [facility] DATE CREATED AUTHOR AUTHOR'S ORGANIZ ATION 12/03/2021 [facility] DATE CREATED AUTHOR AUTHOR'S ORGANIZ ATION 02/03/2022 [facility] DATE CREATED AUTHOR AUTHOR'S ORGANIZ ATION 10/17/2022 [facility] DATE CREATED AUTHOR AUTHOR'S ORGANIZ ATION 11/19/2022 [facility] DATE CREATED AUTHOR AUTHOR'S ORGANIZ ATION 02/02/2023 [facility] DATE CREATED AUTHOR AUTHOR'S ORGANIZ ATION 04/15/2023 [facility] DATE CREATED AUTHOR AUTHOR'S ORGANIZ ATION 05/01/2023 [facility] DATE CREATED AUTHOR AUTHOR'S ORGANIZ ATION 05/22/2023 [facility] DATE CREATED AUTHOR AUTHOR'S ORGANIZ ATION 09/27/2023 [facility] DATE CREATED AUTHOR AUTHOR'S ORGANIZ ATION 03/17/2024 [facility] DATE CREATED AUTHOR AUTHOR'S ORGANIZ ATION 04/29/2024 [facility] DATE CREATED AUTHOR AUTHOR'S ORGANIZ ATION 05/01/2024 [facility] DATE CREATED AUTHOR AUTHOR'S ORGANIZ ATION 05/25/2024 [facility] DATE CREATED AUTHOR AUTHOR'S ORGANIZ ATION 07/17/2024 [facility] EPIC Reason for Visit (unrecogniz ed section and content) Reason Comments Anesthesia Consult Specialty Diagnoses / Procedures Referred By Raul t Referred To Contact Diagnoses Preoperative examination Incisional hernia, without obstruction or gangrene Infected hernioplasty mesh, sequela Procedures REFER TO [facility] - PRE ANESTHESIA CONSULTATION CLINIC OFFICE/OUTPATIENT NEW HIGH MDM 60-74 MINUTES Abhijit Edmondson, HAND FINISHER.PRODUCTION TECHNOLOGIST [address] [place] [address] Referral ID Status Reason Start Date Expiration Date V isits Requested Visits Authorized [id number] Closed PCP Requested Referral 09/24/2022 09/24/2023 1 1 Status Reason Specialty Diagnoses / Procedures Referred By Contact Referred To Contact Authorized Radiology Diagnoses Other specific joint derangements of right shoulder, not elsewhere classified Procedures [facility] MRI, JOINT UPPER EXTREM Leonard Ac Jr. [address] [facility] [address] [place] [address] [facility] [address] [place] [address] Reason Comments Received Outside Medical Records Reason Comments Appointment Reason Comments Abdominal Pain Reason Comments Sooner appt and question about steroids Reason Comments Endoscopy Call Reason Comments Patient Update Reason Comments Follow Up Specialty Diagnoses / Procedures Referred By Contact Referred To Contact [facility]astroenterology / [facility] Diagnoses Follow up CT Scan results and abdominal pain virtual visit Procedures established patient of Dr. Russell Sanders Self Edwar Perez MD [address] [place] [address] Referral ID Status Reason Start Date Expiration Date Visits Requested Visits Authorized [id number] Outside PCP OON/Self Pay Override 10/10/2021 12/09/2021 1 1 Specialty Diagnoses / Procedures Referred By Raul lui Referred To Contact CT IMAGING Diagnoses Nausea Procedures CT ABDOMEN WO IVCON CT ABDOMEN W/O CONTRAST Edwar Perez MD [address] [place] [address] Ct Imaging Referral ID Status Reason Start Date Expiration Date V isits Requested Visits Authorized [id number] Closed Auto-Generate d Referral 12/02/2021 01/01/2023 1 1 Reason Comments Critical Care Transport Reason Comments Certified Physician Assistant - Other pt has home car e post op can draw labs vs lab Reason Comments Pain (Shoulder Pain) Specialty Diagnoses / Procedures Referred By Contac t Referred To Contact General Surgery / GENERAL SURGERY Diagnoses Follow-up exam FOLLOW UP Procedures OFFICE/OUTPATIENT ESTABLISHED MOD MDM 30-39 MIN UNLISTED EVALUATION AND MANAGEMENT SERVICE EST BMI MED Campbell Tristan MD [address] [place] [address] [place] [address] [place] [address] Referral ID Status Reason Start Date Expiration Date V isits Requested Visits Authorized [id number] Authorized 12/22/2021 07/04/2022 10 10 Reason Onset Date Comments VBC My Chart Follow-up 01/22/2022 Reason Onset Date Comments Schedule Surgery 02/05/2022 Reason Comments 03/11/2022 Reason Comments Post Op Reason Comments Obesity Reason Onset Date Comments Refill Request 03/19/2022 Reason Onset Date Comments Certified Physician Assistant - Other 03/25/2022 Reason Comments Assessment Patient Education Reason Onset Date Comments Refill Request 03/15/2022 Reason Onset Date Comments Refill Request 05/06/2022 Reason Onset Date Comments Refill Request 03/16/2022 Reason Comments Reassessment Patient Education Reason Comments Post Op Follow Up Reason Comments Consult Specialty Diagnoses / Procedures Referred By Contac t Referred To Contact General Surgery / GENERAL SURGERY Diagnoses Abdominal hernia ABDOMINAL HERNIA Procedures OFFICE/OUTPATIENT NEW HIGH MDM 60-74 MINUTES OFFICE/OUTPATIENT ESTABLISHED HIGH MDM 40-54 MIN NEW DDI PATIENT Holland Bowers, DO [address] [facility] [place] [address] Connie Crane MD [address] [place] [address] Referral ID Status Reason Start Date Expiration Date V isits Requested Visits Authorized [id number] Authorized 09/16/2022 07/04/2023 99 99 Reason Comments 6.28.23 Cure Complex abdominal wa ll reconstruction/ Paraesophageal hernia repair 6 hours los [address] Reason Comments Refill Request Reason Comments Pre-Op Visit Specialty Diagnoses / Procedures Referred By Contac t Referred To Contact ANESTHESIOLOGY Diagnoses ekg urg 12/30 [facility];lab;ekg;admit 12/16 Procedures COMPLETE [facility] Connie Crane MD [address] [place] [address] 2, P[facility] [address] [place] [address] Referral ID Status Reason Start Date Expiration Date V isits Requested Visits Authorized [id number] Pending Review 12/16/2022 03/16/2023 1 1 Reason Comments Patient Question Reason Comments Follow Up Phone Call All Clear Reason Comments Patient Update Called yesterday reg arding drainage from surgery site, now abdominal pain, medication not working. - suggested she come to our ED claims she was told not necessary.. Specialty Diagnoses / Procedures Referred By Contac t Referred To Contact CT IMAGING Diagnoses Complications of bariatric procedures Gastric anastomotic leak Procedures CT ABD/PEL W IVCON CT ABD & PELVIS W/CONTRAST Edwar Perez MD [id number] Imaging Referral ID Status Reason Start Date Expiration Date V isits Requested Visits Authorized [id number] Closed Auto-Generate d Referral 11/13/2021 12/13/2022 1 1 Specialty Diagnoses / Procedures Referred By Contac t Referred To Contact CT IMAGING Diagnoses Gastric anastomotic leak Complications of bariatric procedures Procedures CT ABD/PEL W IVCON CT ABD & PELVIS W/CONTRAST Edwar Perez MD [address] [place] [address] Ct Imaging Referral ID Status Reason Start Date Expiration Date V isits Requested Visits Authorized [id number] Closed Auto-Generate d Referral OON/Self Pay Override 11/07/2021 11/07/2022 1 1 Specialty Diagnoses / Procedures Referred By Contac t Referred To Contact Pain Management Diagnoses S/P repair of ventral hernia Lower abdominal pain Procedures CONSULT TO [facility] FOR PAIN RECOVERY (CHRONIC PAIN) OFFICE/OUTPATIENT [facility] MDM 60-74 MINUTES Abhijit Edmondson, HAND FINISHER.PRODUCTION TECHNOLOGIST [address] [place] [address] Referral ID Status Reason Start Date Expiration Date Visits Requested Visits Authorized [id number] Pending Review PCP Requested Referral 02/18/2023 02/18/2024 1 1 Reason Comments New Patient Evaluation Reason Comments Established Patient Reason Comments Preparations For Procedures Pre-injectio n instructions Reason Comments Follow Up Phone Call All clear Reason Comments Post Op Specialty Diagnoses / Procedures Referred By Raul t Referred To Contact CT IMAGING Diagnoses Acute postoperative pain Procedures CT ABD/PEL WO IVCON CT ABD & PELVIS W/O CONTRAST Connie Crane MD [id number] [facility] [place] [address] Referral ID Status Reason Start Date Expiration Date V isits Requested Visits Authorized [id number] Closed Auto-Generate d Referral 05/13/2023 06/11/2024 1 1 Reason Comments 12.26.23 Cure Abdominal wound expl oration 2 hours los 1 Reason Comments Medical Clearance Medical clearance an d some records requested. Reason Comments Established Patient Follow-Up Reason Comments Pain Reason Comments Follow-up Reason Onset Date Comments refill 06/07/2024 Reason Comments Post-op Reason Comments Foot Pain Fx'd Rt foot in 2023, pain is till present. Most painful for her when she is standing/walking. Last Xrays she had were with Brayden Dang SS: 8.5 Specialty Diagnoses / Procedures Referred By Raul t Referred To Contact Podiatry Diagnoses Right foot pain Right ankle tendonitis Procedures [place] OFFICE/OUTPATIENT [facility] 60 MINUTES Marianne Dang PA [address] [place] [place] [address] Zulema Clark, MORALES [address] [place] [address] Referral ID Status Reason Start Date Expiration Date V isits Requested Visits Authorized [id number] Closed Specialty Services Required 01/25/2024 07/23/2024 1 1 Reason Onset Date Comments Surgery 02/29/2024 Reason Onset Date Comments Refill 06/26/2024 Source Comments (unrecognize d section and content) In the event this informatio n is protected by the Federal Confidentiality of Alcohol and Drug Abuse Patient Records regulations: The Federal rules restrict any use of the information to criminally investigate or prosecute any alcohol or drug abuse patient.[facility] the event this information is protected by the Federal Confidentiality of Alcohol and Drug Abuse Patient Records regulations: The Federal rules restrict any use of the information to criminally investigate or prosecute any alcohol or drug abuse patient.[facility]In the event this information is protected by the Federal Confidentiality of Alcohol and Drug Abuse Patient Records regulations: The Federal rules restrict any use of the information to criminally investigate or prosecute any alcohol or drug abuse patient.[facility]In the event this information is protected by the Federal Confidentiality of Alcohol and Drug Abuse Patient Records regulations: The Federal rules restrict any use of the information to criminally investigate or prosecute any alcohol or drug abuse patient.[facility] HospitalIn the event this information is protected by the Federal Confidentiality of Alcohol and Drug Abuse Patient Records regulations: The Federal rules restrict any use of the information to criminally investigate or prosecute any alcohol or drug abuse patient.[facility] HospitalIn the event this information is protected by the Federal Confidentiality of Alcohol and Drug Abuse Patient Records regulations: The Federal rules restrict any use of the information to criminally investigate or prosecute any alcohol or drug abuse patient.[facility]In the event this information is protected by the Federal Confidentiality of Alcohol and Drug Abuse Patient Records regulations: The Federal rules restrict any use of the information to criminally investigate or prosecute any alcohol or drug abuse patient.[facility]In the event this information is protected by the Federal Confidentiality of Alcohol and Drug Abuse Patient Records regulations: The Federal rules restrict any use of the information to criminally investigate or prosecute any alcohol or drug abuse patient.[facility] HospitalIn the event this information is protected by the Federal Confidentiality of Alcohol and Drug Abuse Patient Records regulations: The Federal rules restrict any use of the information to criminally investigate or prosecute any alcohol or drug abuse patient.[facility] HospitalIn the event this information is protected by the Federal Confidentiality of Alcohol and Drug Abuse Patient Records regulations: The Federal rules restrict any use of the information to criminally investigate or prosecute any alcohol or drug abuse patient.[facility] HospitalIn the event this information is protected by the Federal Confidentiality of Alcohol and Drug Abuse Patient Records regulations: The Federal rules restrict any use of the information to criminally investigate or prosecute any alcohol or drug abuse patient.[facility] HospitalIn the event this information is protected by the Federal Confidentiality of Alcohol and Drug Abuse Patient Records regulations: The Federal rules restrict any use of the information to criminally investigate or prosecute any alcohol or drug abuse patient.[facility] HospitalIn the event this information is protected by the Federal Confidentiality of Alcohol and Drug Abuse Patient Records regulations: The Federal rules restrict any use of the information to criminally investigate or prosecute any alcohol or drug abuse patient.[facility] HospitalIn the event this information is protected by the Federal Confidentiality of Alcohol and Drug Abuse Patient Records regulations: The Federal rules restrict any use of the information to criminally investigate or prosecute any alcohol or drug abuse patient.[facility] HospitalIn the event this information is protected by the Federal Confidentiality of Alcohol and Drug Abuse Patient Records regulations: The Federal rules restrict any use of the information to criminally investigate or prosecute any alcohol or drug abuse patient.[facility] HospitalIn the event this information is protected by the Federal Confidentiality of Alcohol and Drug Abuse Patient Records regulations: The Federal rules restrict any use of the information to criminally investigate or prosecute any alcohol or drug abuse patient.[facility] HospitalIn the event this information is protected by the Federal Confidentiality of Alcohol and Drug Abuse Patient Records regulations: The Federal rules restrict any use of the information to criminally investigate or prosecute any alcohol or drug abuse patient.[facility] HospitalIn the event this information is protected by the Federal Confidentiality of Alcohol and Drug Abuse Patient Records regulations: The Federal rules restrict any use of the information to criminally investigate or prosecute any alcohol or drug abuse patient.[facility] HospitalIn the event this information is protected by the Federal Confidentiality of Alcohol and Drug Abuse Patient Records regulations: The Federal rules restrict any use of the information to criminally investigate or prosecute any alcohol or drug abuse patient.[facility] HospitalIn the event this information is protected by the Federal Confidentiality of Alcohol and Drug Abuse Patient Records regulations: The Federal rules restrict any use of the information to criminally investigate or prosecute any alcohol or drug abuse patient.[facility] HospitalIn the event this information is protected by the Federal Confidentiality of Alcohol and Drug Abuse Patient Records regulations: The Federal rules restrict any use of the information to criminally investigate or prosecute any alcohol or drug abuse patient.[facility] HospitalIn the event this information is protected by the Federal Confidentiality of Alcohol and Drug Abuse Patient Records regulations: The Federal rules restrict any use of the information to criminally investigate or prosecute any alcohol or drug abuse patient.[facility] HospitalIn the event this information is protected by the Federal Confidentiality of Alcohol and Drug Abuse Patient Records regulations: The Federal rules restrict any use of the information to criminally investigate or prosecute any alcohol or drug abuse patient.[facility] HospitalIn the event this information is protected by the Federal Confidentiality of Alcohol and Drug Abuse Patient Records regulations: The Federal rules restrict any use of the information to criminally investigate or prosecute any alcohol or drug abuse patient.[facility] HospitalIn the event this information is protected by the Federal Confidentiality of Alcohol and Drug Abuse Patient Records regulations: The Federal rules restrict any use of the information to criminally investigate or prosecute any alcohol or drug abuse patient.[facility] HospitalIn the event this information is protected by the Federal Confidentiality of Alcohol and Drug Abuse Patient Records regulations: The Federal rules restrict any use of the information to criminally investigate or prosecute any alcohol or drug abuse patient.[facility] HospitalIn the event this information is protected by the Federal Confidentiality of Alcohol and Drug Abuse Patient Records regulations: The Federal rules restrict any use of the information to criminally investigate or prosecute any alcohol or drug abuse patient.[facility] HospitalIn the event this information is protected by the Federal Confidentiality of Alcohol and Drug Abuse Patient Records regulations: The Federal rules restrict any use of the information to criminally investigate or prosecute any alcohol or drug abuse patient.[facility] HospitalIn the event this information is protected by the Federal Confidentiality of Alcohol and Drug Abuse Patient Records regulations: The Federal rules restrict any use of the information to criminally investigate or prosecute any alcohol or drug abuse patient.[facility] HospitalIn the event this information is protected by the Federal Confidentiality of Alcohol and Drug Abuse Patient Records regulations: The Federal rules restrict any use of the information to criminally investigate or prosecute any alcohol or drug abuse patient.[facility] HospitalIn the event this information is protected by the Federal Confidentiality of Alcohol and Drug Abuse Patient Records regulations: The Federal rules restrict any use of the information to criminally investigate or prosecute any alcohol or drug abuse patient.[facility] HospitalIn the event this information is protected by the Federal Confidentiality of Alcohol and Drug Abuse Patient Records regulations: The Federal rules restrict any use of the information to criminally investigate or prosecute any alcohol or drug abuse patient.[facility] HospitalIn the event this information is protected by the Federal Confidentiality of Alcohol and Drug Abuse Patient Records regulations: The Federal rules restrict any use of the information to criminally investigate or prosecute any alcohol or drug abuse patient.[facility] HospitalIn the event this information is protected by the Federal Confidentiality of Alcohol and Drug Abuse Patient Records regulations: The Federal rules restrict any use of the information to criminally investigate or prosecute any alcohol or drug abuse patient.[facility]In the event this information is protected by the Federal Confidentiality of Alcohol and Drug Abuse Patient Records regulations: The Federal rules restrict any use of the information to criminally investigate or prosecute any alcohol or drug abuse patient.[facility] HospitalIn the event this information is protected by the Federal Confidentiality of Alcohol and Drug Abuse Patient Records regulations: The Federal rules restrict any use of the information to criminally investigate or prosecute any alcohol or drug abuse patient.[facility] HospitalIn the event this information is protected by the Federal Confidentiality of Alcohol and Drug Abuse Patient Records regulations: The Federal rules restrict any use of the information to criminally investigate or prosecute any alcohol or drug abuse patient.[facility] HospitalIn the event this information is protected by the Federal Confidentiality of Alcohol and Drug Abuse Patient Records regulations: The Federal rules restrict any use of the information to criminally investigate or prosecute any alcohol or drug abuse patient.[facility] HospitalIn the event this information is protected by the Federal Confidentiality of Alcohol and Drug Abuse Patient Records regulations: The Federal rules restrict any use of the information to criminally investigate or prosecute any alcohol or drug abuse patient.[facility] HospitalIn the event this information is protected by the Federal Confidentiality of Alcohol and Drug Abuse Patient Records regulations: The Federal rules restrict any use of the information to criminally investigate or prosecute any alcohol or drug abuse patient.[facility] HospitalIn the event this information is protected by the Federal Confidentiality of Alcohol and Drug Abuse Patient Records regulations: The Federal rules restrict any use of the information to criminally investigate or prosecute any alcohol or drug abuse patient.[facility] HospitalIn the event this information is protected by the Federal Confidentiality of Alcohol and Drug Abuse Patient Records regulations: The Federal rules restrict any use of the information to criminally investigate or prosecute any alcohol or drug abuse patient.[facility] HospitalIn the event this information is protected by the Federal Confidentiality of Alcohol and Drug Abuse Patient Records regulations: The Federal rules restrict any use of the information to criminally investigate or prosecute any alcohol or drug abuse patient.[facility] HospitalIn the event this information is protected by the Federal Confidentiality of Alcohol and Drug Abuse Patient Records regulations: The Federal rules restrict any use of the information to criminally investigate or prosecute any alcohol or drug abuse patient.[facility] HospitalIn the event this information is protected by the Federal Confidentiality of Alcohol and Drug Abuse Patient Records regulations: The Federal rules restrict any use of the information to criminally investigate or prosecute any alcohol or drug abuse patient.[facility] HospitalIn the event this information is protected by the Federal Confidentiality of Alcohol and Drug Abuse Patient Records regulations: The Federal rules restrict any use of the information to criminally investigate or prosecute any alcohol or drug abuse patient.[facility] HospitalIn the event this information is protected by the Federal Confidentiality of Alcohol and Drug Abuse Patient Records regulations: The Federal rules restrict any use of the information to criminally investigate or prosecute any alcohol or drug abuse patient.[facility] HospitalIn the event this information is protected by the Federal Confidentiality of Alcohol and Drug Abuse Patient Records regulations: The Federal rules restrict any use of the information to criminally investigate or prosecute any alcohol or drug abuse patient.[facility] HospitalIn the event this information is protected by the Federal Confidentiality of Alcohol and Drug Abuse Patient Records regulations: The Federal rules restrict any use of the information to criminally investigate or prosecute any alcohol or drug abuse patient.[facility] HospitalIn the event this information is protected by the Federal Confidentiality of Alcohol and Drug Abuse Patient Records regulations: The Federal rules restrict any use of the information to criminally investigate or prosecute any alcohol or drug abuse patient.[facility] HospitalIn the event this information is protected by the Federal Confidentiality of Alcohol and Drug Abuse Patient Records regulations: The Federal rules restrict any use of the information to criminally investigate or prosecute any alcohol or drug abuse patient.[facility] HospitalIn the event this information is protected by the Federal Confidentiality of Alcohol and Drug Abuse Patient Records regulations: The Federal rules restrict any use of the information to criminally investigate or prosecute any alcohol or drug abuse patient.[facility] HospitalIn the event this information is protected by the Federal Confidentiality of Alcohol and Drug Abuse Patient Records regulations: The Federal rules restrict any use of the information to criminally investigate or prosecute any alcohol or drug abuse patient.[facility] HospitalIn the event this information is protected by the Federal Confidentiality of Alcohol and Drug Abuse Patient Records regulations: The Federal rules restrict any use of the information to criminally investigate or prosecute any alcohol or drug abuse patient.[facility] HospitalIn the event this information is protected by the Federal Confidentiality of Alcohol and Drug Abuse Patient Records regulations: The Federal rules restrict any use of the information to criminally investigate or prosecute any alcohol or drug abuse patient.[facility] HospitalIn the event this information is protected by the Federal Confidentiality of Alcohol and Drug Abuse Patient Records regulations: The Federal rules restrict any use of the information to criminally investigate or prosecute any alcohol or drug abuse patient.[facility] HospitalIn the event this information is protected by the Federal Confidentiality of Alcohol and Drug Abuse Patient Records regulations: The Federal rules restrict any use of the information to criminally investigate or prosecute any alcohol or drug abuse patient.[facility] HospitalIn the event this information is protected by the Federal Confidentiality of Alcohol and Drug Abuse Patient Records regulations: The Federal rules restrict any use of the information to criminally investigate or prosecute any alcohol or drug abuse patient.[facility] HospitalIn the event this information is protected by the Federal Confidentiality of Alcohol and Drug Abuse Patient Records regulations: The Federal rules restrict any use of the information to criminally investigate or prosecute any alcohol or drug abuse patient.[facility] HospitalIn the event this information is protected by the Federal Confidentiality of Alcohol and Drug Abuse Patient Records regulations: The Federal rules restrict any use of the information to criminally investigate or prosecute any alcohol or drug abuse patient.[facility] HospitalIn the event this information is protected by the Federal Confidentiality of Alcohol and Drug Abuse Patient Records regulations: The Federal rules restrict any use of the information to criminally investigate or prosecute any alcohol or drug abuse patient.[facility] HospitalIn the event this information is protected by the Federal Confidentiality of Alcohol and Drug Abuse Patient Records regulations: The Federal rules restrict any use of the information to criminally investigate or prosecute any alcohol or drug abuse patient.[facility] HospitalIn the event this information is protected by the Federal Confidentiality of Alcohol and Drug Abuse Patient Records regulations: The Federal rules restrict any use of the information to criminally investigate or prosecute any alcohol or drug abuse patient.[facility] HospitalIn the event this information is protected by the Federal Confidentiality of Alcohol and Drug Abuse Patient Records regulations: The Federal rules restrict any use of the information to criminally investigate or prosecute any alcohol or drug abuse patient.[facility] HospitalIn the event this information is protected by the Federal Confidentiality of Alcohol and Drug Abuse Patient Records regulations: The Federal rules restrict any use of the information to criminally investigate or prosecute any alcohol or drug abuse patient.[facility] HospitalIn the event this information is protected by the Federal Confidentiality of Alcohol and Drug Abuse Patient Records regulations: The Federal rules restrict any use of the information to criminally investigate or prosecute any alcohol or drug abuse patient.[facility] HospitalIn the event this information is protected by the Federal Confidentiality of Alcohol and Drug Abuse Patient Records regulations: The Federal rules restrict any use of the information to criminally investigate or prosecute any alcohol or drug abuse patient.[facility] HospitalIn the event this information is protected by the Federal Confidentiality of Alcohol and Drug Abuse Patient Records regulations: The Federal rules restrict any use of the information to criminally investigate or prosecute any alcohol or drug abuse patient.[facility] HospitalIn the event this information is protected by the Federal Confidentiality of Alcohol and Drug Abuse Patient Records regulations: The Federal rules restrict any use of the information to criminally investigate or prosecute any alcohol or drug abuse patient.[facility] HospitalIn the event this information is protected by the Federal Confidentiality of Alcohol and Drug Abuse Patient Records regulations: The Federal rules restrict any use of the information to criminally investigate or prosecute any alcohol or drug abuse patient.[facility] HospitalIn the event this information is protected by the Federal Confidentiality of Alcohol and Drug Abuse Patient Records regulations: The Federal rules restrict any use of the information to criminally investigate or prosecute any alcohol or drug abuse patient.[facility] HospitalIn the event this information is protected by the Federal Confidentiality of Alcohol and Drug Abuse Patient Records regulations: The Federal rules restrict any use of the information to criminally investigate or prosecute any alcohol or drug abuse patient.[facility] HospitalIn the event this information is protected by the Federal Confidentiality of Alcohol and Drug Abuse Patient Records regulations: The Federal rules restrict any use of the information to criminally investigate or prosecute any alcohol or drug abuse patient.[facility] HospitalIn the event this information is protected by the Federal Confidentiality of Alcohol and Drug Abuse Patient Records regulations: The Federal rules restrict any use of the information to criminally investigate or prosecute any alcohol or drug abuse patient.[facility] HospitalIn the event this information is protected by the Federal Confidentiality of Alcohol and Drug Abuse Patient Records regulations: The Federal rules restrict any use of the information to criminally investigate or prosecute any alcohol or drug abuse patient.[facility] HospitalIn the event this information is protected by the Federal Confidentiality of Alcohol and Drug Abuse Patient Records regulations: The Federal rules restrict any use of the information to criminally investigate or prosecute any alcohol or drug abuse patient.[facility] HospitalIn the event this information is protected by the Federal Confidentiality of Alcohol and Drug Abuse Patient Records regulations: The Federal rules restrict any use of the information to criminally investigate or prosecute any alcohol or drug abuse patient.[facility] HospitalIn the event this information is protected by the Federal Confidentiality of Alcohol and Drug Abuse Patient Records regulations: The Federal rules restrict any use of the information to criminally investigate or prosecute any alcohol or drug abuse patient.[facility] HospitalIn the event this information is protected by the Federal Confidentiality of Alcohol and Drug Abuse Patient Records regulations: The Federal rules restrict any use of the information to criminally investigate or prosecute any alcohol or drug abuse patient.[facility] HospitalIn the event this information is protected by the Federal Confidentiality of Alcohol and Drug Abuse Patient Records regulations: The Federal rules restrict any use of the information to criminally investigate or prosecute any alcohol or drug abuse patient.[facility] HospitalIn the event this information is protected by the Federal Confidentiality of Alcohol and Drug Abuse Patient Records regulations: The Federal rules restrict any use of the information to criminally investigate or prosecute any alcohol or drug abuse patient.[facility] (unrecognized sec tion and content) Operator Specialist Communications Relationship Specialty Start Date End Date Holland Bowers [address] [place] [address] PCP - General Family Practice 03/06/16 Operator Specialist Communications Relationship Specialty Start Date End Date KristinaHolland salazar [address] [place] [address] PCP - General Family Practice 03/06/16 Operator Specialist Communications Relationship Specialty Start Date End Date Holland Bowers [address] [place] [address] PCP - General Family Practice 03/06/16 Operator Specialist Communications Relationship Specialty Start Date End Date Holland Bowers [address] [place] [address] PCP - General Family Practice 03/06/16 Operator Specialist Communications Relationship Specialty Start Date End Date Holland Bowers [address] [place] [address] PCP - General Family Practice 03/06/16 Operator Specialist Communications Relationship Specialty Start Date End Date Holland Bowers [address] [place] [address] PCP - General Family Practice 03/06/16 Operator Specialist Communications Relationship Specialty Start Date End Date KristinaloHolland salazar [address] [place] [address] PCP - General Family Practice 03/06/16 Operator Specialist Communications Relationship Specialty Start Date End Date KristinaloHolland salazar [address] [place] [address] PCP - General Family Practice 03/06/16 Operator Specialist Communications Relationship Specialty Start Date End Date KristinaloHolland salazar [address] [place] [address] PCP - General Family Practice 03/06/16 Operator Specialist Communications Relationship Specialty Start Date End Date KristinaloHolland salazar [address] [place] [address] PCP - General Family Practice 03/06/16 Operator Specialist Communications Relationship Specialty Start Date End Date Holland Bowers DO [address] [place] [address] PCP - General Family Practice 03/06/16 Operator Specialist Communications Relationship Specialty Start Date End Date KristinaloHolland salazar DO [address] [place] [address] PCP - General Family Practice 03/06/16 Operator Specialist Communications Relationship Specialty Start Date End Date Holland Bowers DO [address] [place] [address] PCP - General Family Practice 03/06/16 Operator Specialist Communications Relationship Specialty Start Date End Date KristinaloHolland salazar DO [address] [place] [address] PCP - General Family Practice 03/06/16 Operator Specialist Communications Relationship Specialty Start Date End Date Holland Bowers, DO [address] [place] [address] PCP - General Family Practice 03/06/16 Operator Specialist Communications Relationship Specialty Start Date End Date Holland Bowers, DO [address] [place] [address] PCP - General Family Practice 03/06/16 Operator Specialist Communications Relationship Specialty Start Date End Date Holland Bowers, DO [address] [place] [address] PCP - General Family Practice 03/06/16 Operator Specialist Communications Relationship Specialty Start Date End Date Holland Bowers, DO [address] [place] [address] PCP - General Family Practice 03/06/16 Operator Specialist Communications Relationship Specialty Start Date End Date Holland Bowers, DO [address] [place] [address] PCP - General Family Practice 03/06/16 Operator Specialist Communications Relationship Specialty Start Date End Date Holland Bowers, DO [address] [place] [address] PCP - General Family Practice 03/06/16 Operator Specialist Communications Relationship Specialty Start Date End Date Holland Bowers, DO [address] [place] [address] PCP - General Family Practice 03/06/16 Operator Specialist Communications Relationship Specialty Start Date End Date Holland Bowers, DO [address] [place] [address] PCP - General Family Practice 03/06/16 Operator Specialist Communications Relationship Specialty Start Date End Date Holland Bowers, DO [address] [place] [address] PCP - General Family Practice 03/06/16 Operator Specialist Communications Relationship Specialty Start Date End Date Holland Bowers, DO [address] [place] [address] PCP - General Family Practice 03/06/16 Operator Specialist Communications Relationship Specialty Start Date End Date Holland Bowers, DO [address] [place] [address] PCP - General Family Practice 03/06/16 Operator Specialist Communications Relationship Specialty Start Date End Date Holland Bowers, DO [address] [place] [address] PCP - General Family Practice 03/06/16 Operator Specialist Communications Relationship Specialty Start Date End Date Holland Bowers, DO [address] [place] [address] PCP - General Family Practice 03/06/16 Operator Specialist Communications Relationship Specialty Start Date End Date Holland Bowers, DO [address] [place] [address] PCP - General Family Practice 03/06/16 Operator Specialist Communications Relationship Specialty Start Date End Date Holland Bowers, DO [address] [place] [address] PCP - General Family Medicine 03/06/16 Operator Specialist Communications Relationship Specialty Start Date End Date Holland Bowers, DO [address] [place] [address] PCP - General Family Medicine 03/06/16 Operator Specialist Communications Relationship Specialty Start Date End Date Holland Bowers, DO [address] [place] [address] PCP - General Family Medicine 03/06/16 Operator Specialist Communications Relationship Specialty Start Date End Date Holland Bowers, DO [address] [place] [address] PCP - General Family Medicine 03/06/16 Operator Specialist Communications Relationship Specialty Start Date End Date Holland Bowers, DO [address] [place] [address] PCP - General Family Medicine 03/06/16 Operator Specialist Communications Relationship Specialty Start Date End Date Holland Bowers, DO [address] [place] [address] PCP - General Family Medicine 03/06/16 Team Status: Active Member Role Status Dates Holland Acevedoabena , DO Primary Care Provider Active Team Status: Inactive Member Role Status Dates Holland Acevedoabena , DO Primary Care Provider Active Arjun Layton MD Admit Provider Active Dorys Sanchez MD Attending Provider Active Operator Specialist Communications Relationship Specialty Start Date End Date Holland Bowers, DO [address] [place] [address] PCP - General Family Medicine 03/06/16 Operator Specialist Communications Relationship Specialty Start Date End Date Holland Bowers, DO [address] [place] [address] PCP - General Family Medicine 03/06/16 Operator Specialist Communications Relationship Specialty Start Date End Date Holland Bowers, DO [address] [place] [address] PCP - General Family Medicine 03/06/16 Operator Specialist Communications Relationship Specialty Start Date End Date Holland Bowers DO [address] [place] [address] PCP - General Family Medicine 03/06/16 Team Status: Inactive Member Role Status Dates Holland AcevedoministerioDO martin Primary Care Provider Active Jermaine Sinha MD Emergency Provider Active Operator Specialist Communications Relationship Specialty Start Date End Date Holland Bowers, DO [address] [place] [address] PCP - General Family Medicine 03/06/16 Operator Specialist Communications Relationship Specialty Start Date End Date Holland Bowers DO [address] [place] [address] PCP - General Family Medicine 03/06/16 Operator Specialist Communications Relationship Specialty Start Date End Date Holland Bowers DO [address] [place] [address] PCP - General Family Medicine 03/06/16 Operator Specialist Communications Relationship Specialty Start Date End Date Holland Bwoers DO [address] [place] [address] PCP - General Family Medicine 03/06/16 Operator Specialist Communications Relationship Specialty Start Date End Date Holland Bowers DO [address] [place] [address] PCP - General Family Medicine 03/06/16 Operator Specialist Communications Relationship Specialty Start Date End Date Holland Bowers DO [address] [place] [address] PCP - General Family Medicine 03/06/16 Operator Specialist Communications Relationship Specialty Start Date End Date Holland Bowers DO [address] [place] [address] PCP - General Family Medicine 03/06/16 Operator Specialist Communications Relationship Specialty Start Date End Date Holland Bowers DO [address] [place] [address] PCP - General Family Medicine 03/06/16 Operator Specialist Communications Relationship Specialty Start Date End Date Holland Bowers DO [address] [place] [address] PCP - General Family Medicine 03/06/16 Operator Specialist Communications Relationship Specialty Start Date End Date Holland Bowers DO [address] [place] [address] PCP - General Family Medicine 03/06/16 Operator Specialist Communications Relationship Specialty Start Date End Date Holland Bowers DO [address] [place] [address] PCP - General Family Medicine 03/06/16 Operator Specialist Communications Relationship Specialty Start Date End Date Holland Bowers DO [address] [place] [address] PCP - General Family Medicine 03/06/16 Operator Specialist Communications Relationship Specialty Start Date End Date Holland Bowers DO [address] [place] [address] PCP - General Family Medicine 03/06/16 Operator Specialist Communications Relationship Specialty Start Date End Date Holland Bowers DO [address] [place] [address] PCP - General Family Medicine 03/06/16 Operator Specialist Communications Relationship Specialty Start Date End Date Holland Bowers DO [address] [place] [address] PCP - General Family Medicine 03/06/16 Operator Specialist Communications Relationship Specialty Start Date End Date Holland Bowers DO [address] [place] [address] PCP - General Family Medicine 03/06/16 Operator Specialist Communications Relationship Specialty Start Date End Date Holland Bowers DO [address] [place] [address] PCP - General Family Medicine 03/06/16 Operator Specialist Communications Relationship Specialty Start Date End Date Holland Bowers DO [address] [place] [address] PCP - General Family Medicine 03/06/16 Operator Specialist Communications Relationship Specialty Start Date End Date Holland Bowers DO [address] [place] [address] PCP - General Family Medicine 03/06/16 Operator Specialist Communications Relationship Specialty Start Date End Date Holland Bowers DO [address] [place] [address] PCP - General Family Medicine 03/06/16 Operator Specialist Communications Relationship Specialty Start Date End Date Holland Bowers DO [address] [place] [address] PCP - General Family Medicine 03/06/16 Operator Specialist Communications Relationship Specialty Start Date End Date Holland Bowers DO [address] [place] [address] PCP - General Family Medicine 03/06/16 Operator Specialist Communications Relationship Specialty Start Date End Date Holland Bowers DO [address] [place] [address] PCP - General Family Medicine 03/06/16 Operator Specialist Communications Relationship Specialty Start Date End Date Holland Bowers DO [address] [place] [address] PCP - General Family Medicine 03/06/16 Operator Specialist Communications Relationship Specialty Start Date End Date Holland Bowers DO [address] [address] PCP - General Family Medicine 03/06/16 Operator Specialist Communications Relationship Specialty Start Date End Date Holland Bowers DO [address] [place] [address] PCP - General Family Medicine 03/06/16 Operator Specialist Communications Relationship Specialty Start Date End Date Holland Bowers MD [address] [place] [address] PCP - General Family Medicine 08/06/23 Operator Specialist Communications Relationship Specialty Start Date End Date KristinaHolland cutler DO [address] [place] [address] PCP - General Family Medicine 06/13/19 Operator Specialist Communications Relationship Specialty Start Date End Date KristinaHolland cutler DO [address] [place] [address] PCP - General Family Medicine 06/13/19 Operator Specialist Communications Relationship Specialty Start Date End Date Holland Bowers DO [address] [place] [address] PCP - General Family Medicine 06/13/19 Operator Specialist Communications Relationship Specialty Start Date End Date Holland Bowers MD [address] [place] [address] PCP - General Family Medicine 08/06/23 Operator Specialist Communications Relationship Specialty Start Date End Date Holland Bowers MD [address] [place] [address] PCP - General Family Medicine 08/06/23 Operator Specialist Communications Relationship Specialty Start Date End Date Holland Bowers MD [address] [place] [address] PCP - General Family Medicine 08/06/23 Operator Specialist Communications Relationship Specialty Start Date End Date Holland Bowers MD [address] [place] [address] PCP - General Family Medicine 08/06/23 Operator Specialist Communications Relationship Specialty Start Date End Date Holland Bowers MD [address] [place] [address] PCP - General Family Medicine 08/06/23 Operator Specialist Communications Relationship Specialty Start Date End Date Holland Bowers MD [address] [place] [address] PCP - General Family Medicine 08/06/23 Operator Specialist Communications Relationship Specialty Start Date End Date Holland Bowers MD [address] [place] [address] PCP - General Family Medicine 08/06/23 Operator Specialist Communications Relationship Specialty Start Date End Date Holland Bowers MD [address] [place] [address] PCP - General Family Medicine 08/06/23 Operator Specialist Communications Relationship Specialty Start Date End Date Holland Bowers MD [address] [place] [address] PCP - General Family Medicine 08/06/23 Operator Specialist Communications Relationship Specialty Start Date End Date Holland Bowers MD [address] [place] [address] PCP - General Family Medicine 08/06/23 Operator Specialist Communications Relationship Specialty Start Date End Date Holland Bowers MD [address] [place] [address] PCP - General Family Medicine 08/06/23 Operator Specialist Communications Relationship Specialty Start Date End Date Holland Bowers MD [address] [place] [address] PCP - General Family Medicine 08/06/23 Operator Specialist Communications Relationship Specialty Start Date End Date Holland Bowers MD [address] [place] [address] PCP - General Family Medicine 08/06/23 Operator Specialist Communications Relationship Specialty Start Date End Date Holland Bwoers MD [address] [place] [address] PCP - General Family Medicine 08/06/23 Operator Specialist Communications Relationship Specialty Start Date End Date Holland Bowers MD [address] [place] [address] PCP - General Family Medicine 08/06/23 Operator Specialist Communications Relationship Specialty Start Date End Date Holland Bowers MD [address] [place] [address] PCP - General Family Medicine 08/06/23 Operator Specialist Communications Relationship Specialty Start Date End Date Holland Bowers DO [address] [place] [address] PCP - General Family Medicine 06/13/19 Operator Specialist Communications Relationship Specialty Start Date End Date Holland Bowers MD [address] [place] [address] PCP - General Family Medicine 08/06/23 Operator Specialist Communications Relationship Specialty Start Date End Date Holland Bowers MD [address] [place] [address] PCP - General Family Medicine 08/06/23 Operator Specialist Communications Relationship Specialty Start Date End Date Holland Bowers MD [address] [place] [address] PCP - General Family Medicine 08/06/23 Operator Specialist Communications Relationship Specialty Start Date End Date Holland Bowers MD [address] [place] [address] PCP - General Family Medicine 08/06/23 Operator Specialist Communications Relationship Specialty Start Date End Date Holland Bowers MD [address] [facility] [place] [address] PCP - General Family Medicine 08/06/23 FOR RECORDS PERTAINING TO PATIENTS WHO ARE OR HAVE BEEN ENROLLED IN A CHEMICAL DEPENDENCY/SUBSTANCEABUSE PROGRAM, SOME INFORMATION MAY BE OMITTED. This clinical summary was aggregated from multiple sources. Caution should be exercised in using it in the provision of clinical care. This summary normalizes information from multiple sources, and as a consequence, information in this document may materially change the coding, format and clinical context of patient data. In addition, data may be omitted in some cases. CLINICAL DECISIONS SHOULD BE BASED ON THE PRIMARY CLINICAL RECORDS. [facility]. provides no warranty or guarantee of the accuracy or completeness of information in this document.
[2024-07-20] MEDS: ONDANSETRON PF 4 MG/2 ML VIAL IV (00:49)
[2024-07-20] MEDS: MORPHINE SULFATE 2 MG/ML SYRINGE 4 MG IV (00:49)
[2024-07-20 01:00] LABS: Basophils Percent Auto 0.3 % (0.2-2.0); Eosinophils Percent Auto 0.2 % (0.9-7.0); Hematocrit 42.1 % (36.0-48.0); Hemoglobin 13.2 g/dL (12.0-16.0); Immature Granulocytes Abs Auto 0.03 10^3/uL (0.00-0.03); Immature Granulocytes Pct Auto 0.2 % (0.0-0.5); Lymphocytes Absolute Auto 1.4 10^3/uL (1.2-3.8); Lymphocytes Percent Auto 11.9 % (20.5-60.0); Mean Corpuscular HGB Conc 31.4 g/dL (29.9-35.2); Mean Corpuscular Hemoglobin 26.5 pg (26.7-34.0); Mean Corpuscular Volume 84.4 fL (81.0-99.0); Mean Platelet Volume 9.3 fL (9.5-13.5); Monocytes Absolute Auto 0.8 10^3/uL (0.3-0.8); Monocytes Percent Auto 6.3 % (1.7-12.0); Neutrophils Absolute Auto 9.8 10^3/uL (1.4-6.5); Neutrophils Percent Auto 81.1 % (43.0-75.0); Platelet Count 278 10^3/uL (150-450); Red Blood Count 4.99 10^6/uL (4.20-5.40); Red Cell Distribution Width 14.5 % (11.0-15.0); White Blood Count 12.1 10^3/uL (4.0-11.0)
[2024-07-20 01:32] LABS: Alanine Aminotransferase 36 U/L (14-59); Albumin Globulin Ratio 0.9; Albumin Level 3.5 g/dL (3.4-5.0); Alkaline Phosphatase 87 U/L (46-116); Aspartate Amino Transferase 23 U/L (15-37); BUN Creatinine Ratio 14.3; Bilirubin Total 0.6 mg/dL (0.2-1.0); Calcium 9.7 mg/dL (8.5-10.1); Carbon Dioxide 28.2 mmol/L (21.0-32.0); Chloride 103 mmol/L (98-107); Estimated GFR (African America 50 (>=60 mL/min/1.73m^2); Estimated GFR (Non-African Ame 41 (>=60 mL/min/1.73m^2); Globulin 4.1 g/dL; Glucose 120 mg/dL (74-106); Potassium 4.2 mmol/L (3.5-5.1); Sodium 140 mmol/L (136-145); Total Protein 7.6 g/dL (6.4-8.2)
[2024-07-20 01:41] LABS: Bilirubin Urine NEGATIVE (NEGATIVE); Blood Urine LARGE (NEGATIVE); Clarity Urine CLEAR (CLEAR); Color Urine YELLOW (YELLOW); Glucose Urine UA NEGATIVE (NEGATIVE); Ketones Urine NEGATIVE (NEGATIVE); Leukocyte Esterase Urine NEGATIVE (NEGATIVE); Nitrite Urine NEGATIVE (NEGATIVE); Protein Urine NEGATIVE (NEG/TRACE); Specific Gravity Urine 1.015 (1.005-1.025); Urobilinogen Urine 0.2 EU/dL (0.2-1.0); pH Urine 5.5 (5.0-9.0)
[2024-07-20 01:46] LABS: Urine Microscopic Indicated YES
[2024-07-20 01:50] LABS: Bacteria Urine TRACE #/HPF (NONE SEEN); Cast Seen? NONE SEEN #/LPF (NONE SEEN); Crystals Seen? None Seen #/HPF (None Seen); Mucus Urine NONE SEEN (NONE SEEN); RBC Urine 20-50 #/HPF (0-2); Squamous Epithelial Cell Urine RARE #/LPF (NONE/RARE); Urine Culture Indicated NO
--- NOTE | 2024-07-20 02:04 | ED.GENADUL1 ---
HPI HPI - General Adult General Chief complaint: Abdominal Pain Stated complaint: NAUSEA, ABDOMINAL PAIN Time Seen by Provider: 07/19/24 23:52 Source: patient Mode of arrival: walk-in Limitations: no limitations History of Present Illness HPI narrative: 58-year-old female to the emergency department chief complaint of right-sided abdominal pain. Symptoms began suddenly this evening. Was associated with some nausea and vomiting. She denies any fever, sweats, chills. She reports normal bowel movements. She denies any blood in the urine with urinating. Related Data Home Medications ?Medication ?Instructions ?Recorded ?Confirmed aspirin 81 mg tablet,delayed 81 mg PO DAILY 12/18/22 12/13/23 release (Adult Aspirin Regimen) multivitamin 1 tab PO DAILY 12/18/22 12/13/23 pravastatin 20 mg tablet 20 mg PO QPM 12/18/22 12/14/23 Previous Rx's ?Medication ?Instructions ?Recorded levothyroxine 125 mcg capsule 125 mcg PO DAILY #30 caps 12/14/23 oxycodone-acetaminophen 5 mg-325 1 tab PO Q6H PRN pain 5 days #20 02/14/24 mg tablet (Percocet) tabs ondansetron 4 mg disintegrating 4 mg PO Q8H PRN nausea and 07/20/24 tablet vomiting 4 days #16 tabs oxycodone-acetaminophen 5 mg-325 1 tab PO Q6H PRN pain 3 days #12 07/20/24 mg tablet (Percocet) tabs tamsulosin 0.4 mg capsule (Flomax) 0.4 mg PO DAILY #14 caps 07/20/24 Allergies Allergy/AdvReac Type Severity Reaction Status Date / Time cephalexin (From Keflex) Allergy Mild itching Verified 02/14/24 10:59 codeine Allergy Mild Anaphylaxis Verified 02/14/24 10:59 tramadol AdvReac Mild Hallucinati Verified 02/14/24 10:59 ng Opioid HPI Opioid Management Most Recent Opioid Data: Last Pain Scale 10 07/20/24 00:00 07/20/24 Last ORT Total Score 0 12/13/23 16:43 12/13/23 Last ORT Risk Category Low Risk 12/13/23 16:43 12/13/23 Review of Systems ROS Status of ROS 10 or more systems reviewed and unremarkable except as noted in history and below PFSH [facility] Medical History (Updated 07/20/24 @ 01:59 by Eric Hollis MD) Hypothyroid ?E03.9 - Hypothyroidism, unspecified (ICD-10) SVT (supraventricular tachycardia) ?I47.10 - Supraventricular tachycardia, unspecified (ICD-10) Surgical History (Updated 12/13/23 @ 11:27 by Tiffany Fermin) H/O abdominal surgery ?Z98.890 - Other specified postprocedural states (ICD-10) Social History Smoking status: Never smoker Highest level of school completed/degree received: Bachelor's degree Little interest or pleasure in doing things: not at all Feeling down, depressed, or hopeless: not at all Do you think of yourself as: straight/heterosexual Gender Identity: female Exam Narrative Exam Narrative: VITALS: I have reviewed the triage vital signs. GENERAL: Well developed, well appearing adult in no acute distress. NEURO: Alert and oriented. Moves all extremities. Face is symmetric and expressive. EYES: PERRL. No scleral icterus or conjunctival injection. No discharge. HENT: Normocephalic, atraumatic. Hearing is grossly intact. Nares grossly patent and without discharge. Mucous membranes moist. NECK: No JVD. Patient moves neck without restriction. CARDIO: Rhythm regular. Normal rate. No murmur, rub, or gallop. Pulses equal bilaterally in the upper and lower extremity. No lower extremity edema. PULM: Lungs clear to auscultation in all ray. No wheezes, rales, or rhonchi. No conversational dyspnea. No splinting, stridor, or accessory muscle use. GI/: Abdomen is soft and non-tender. Normoactive bowel sounds. EXTREMITIES: Symmetric muscle bulk. No joint swelling. No clubbing, cyanosis, or deformity. SKIN: Warm and dry. Normal turgor. No rash or lesions appreciated. PSYCH: Mood, affect, and interaction is appropriate to the setting. Constitutional Vital Signs, click to edit/add: Last Vital Signs Temp 98.3 F 07/19/24 23:54 Pulse 67 07/19/24 23:54 Resp 18 07/19/24 23:54 BP 156/129 H 07/19/24 23:54 Pulse Ox 97 07/19/24 23:54 O2 Del Method Room Air 07/19/24 23:54 Course Vital Signs Vital signs: Vital Signs Temperature 98.3 F 07/19/24 23:54 Pulse Rate 67 07/19/24 23:54 Respiratory Rate 18 07/19/24 23:54 Blood Pressure 156/129 H 07/19/24 23:54 Pulse Oximetry 97 07/19/24 23:54 Oxygen Delivery Method Room Air 07/19/24 23:54 Temperature 98.3 F 07/19/24 23:54 Pulse Rate 67 07/19/24 23:54 Respiratory Rate 18 07/19/24 23:54 Blood Pressure 156/129 H 07/19/24 23:54 Pulse Oximetry 97 07/19/24 23:54 Oxygen Delivery Method Room Air 07/19/24 23:54 Medical Decision Making MDM Narrative Medical decision making narrative: 58-year-old female to the emergency department chief complaint of right-sided abdominal pain. Vital stable, the patient is afebrile. Basic labs ordered. Urinalysis. CT scan of the abdomen pelvis evaluation of the right lower quadrant pain. Morphine and Zofran for symptoms. Patient agrees with this plan. CBC without major abnormality. Chemistry is reviewed. No electrolyte abnormalities. She has a slight increase in her baseline creatinine. Urinalysis without evidence of infection. CT scan shows 2 right-sided kidney stones. 1 at the UVJ and 1 in the ureter. The largest stone has already made it to the UVJ. Patient's pain is controlled. She is able to take oral intake. Believe she is appropriate candidate for outpatient management and follow-up urology. Patient agrees with this plan. Percocet, Zofran, Flomax are prescribed. She will strain her urine. Urology referral was given. Return precautions were discussed. All questions were answered. The patient was discharged home. Medical Records Medical records reviewed: Yes I reviewed the patient's medical records Lab Data Lab results reviewed: Yes I reviewed the patient's lab results Labs: Lab Results 07/20/24 07/20/24 Range/Units 00:43 01:34 WBC 12.1 H (4.0-11.0) 10^3/uL RBC 4.99 (4.20-5.40) 10^6/uL Hgb 13.2 (12.0-16.0) g/dL Hct 42.1 (36.0-48.0) % MCV 84.4 (81.0-99.0) fL MCH 26.5 L (26.7-34.0) pg MCHC 31.4 (29.9-35.2) g/dL RDW 14.5 (11.0-15.0) % Plt Count 278 (150-450) 10^3/uL MPV 9.3 L (9.5-13.5) fL Neut % (Auto) 81.1 H (43.0-75.0) % Lymph % (Auto) 11.9 L (20.5-60.0) % [place] % (Auto) 6.3 (1.7-12.0) % Eos % (Auto) 0.2 L (0.9-7.0) % Baso % (Auto) 0.3 (0.2-2.0) % Neut # (Auto) 9.8 H (1.4-6.5) 10^3/uL Lymph # (Auto) 1.4 (1.2-3.8) 10^3/uL [place] # (Auto) 0.8 (0.3-0.8) 10^3/uL Eos # (Auto) 0.0 (0.0-0.7) 10^3/uL Baso # (Auto) 0.0 (0.0-0.1) 10^3/uL Abs Immat Gran (auto) 0.03 (0.00-0.03) 10^3/uL Imm/Tot Granulo (auto) 0.2 (0.0-0.5) % Sodium 140 (136-145) mmol/L Potassium 4.2 (3.5-5.1) mmol/L Chloride 103 (98-107) mmol/L Carbon Dioxide 28.2 (21.0-32.0) mmol/L Anion Gap 13.0 BUN 19.0 H (7.0-18.0) mg/dL Creatinine 1.33 H (0.55-1.02) mg/dL Est GFR ( Amer) 50 L (>=60 mL/min/1.73m^2) Est GFR (Non-Af Amer) 41 L (>=60 mL/min/1.73m^2) BUN/Creatinine Ratio 14.3 Glucose 120 H (74-106) mg/dL Calcium 9.7 (8.5-10.1) mg/dL Total Bilirubin 0.6 (0.2-1.0) mg/dL AST 23 (15-37) U/L ALT 36 (14-59) U/L Alkaline Phosphatase 87 (46-116) U/L Total Protein 7.6 (6.4-8.2) g/dL Albumin 3.5 (3.4-5.0) g/dL Globulin 4.1 g/dL Albumin/Globulin Ratio 0.9 Lipase 46.0 (16.0-77.0) U/L Urine Color Yellow (YELLOW) Urine Clarity Clear (CLEAR) Urine pH 5.5 (5.0-9.0) Ur Specific [place] 1.015 (1.005-1.025) Urine Protein Negative (NEG/TRACE) mg/dL Urine Glucose (UA) Negative (NEGATIVE) mg/dL Urine Ketones Negative (NEGATIVE) mg/dL Urine Occult Blood Large A (NEGATIVE) Urine Nitrite Negative (NEGATIVE) Urine Bilirubin Negative (NEGATIVE) Urine Urobilinogen 0.2 (0.2-1.0) EU/dL Ur Leukocyte Esterase Negative (NEGATIVE) Urine RBC 20-50 A (0-2) #/HPF Urine WBC 2-5 A (NONE SEEN) #/HPF Ur Squamous Epith Cells Rare (NONE/RARE) #/LPF Urine Crystals None seen (None Seen) #/HPF Urine Bacteria Trace A (NONE SEEN) #/HPF Urine Casts None seen (NONE SEEN) #/LPF Urine Mucus None seen (NONE SEEN) Ur Culture Indicated? No Imaging Data CT scan - abdomen: Attestation: I have reviewed the pertinent imaging results. Radiologist's impression: ITS Impressions Abdomen/Pelvis CT 07/19/24 23:57 IMPRESSION: 1. Acute right-sided obstructive uropathy with moderate to severe right hydronephrosis with 4.5 mm calculus within the proximal third right ureter with additional 5 mm in size calculus at right ureterovesical junction or possibly just passing the bladder. Correlate urinalysis and symptoms and follow-up. 2. Gastrectomy and gastric bypass changes. Uniform wall thickening involving short segment of excluded duodenum with fluid concern for acute duodenitis as well. Correlate symptomatically. 3. Significant compact feces in the upper large bowel and transverse colon right hemicolon. Correlate for constipation. 4. Cholecystectomy with presumed benign postcholecystectomy biliary duct dilation. Confirmed with normal biliary labs. 5. Mild hepatic steatosis. Electronically authenticated by: ROSANA MINA Date: 07/20/2024 01:21 Discharge Plan Discharge Chief Complaint: Abdominal Pain Clinical Impression: Kidney stone on right side Patient Disposition: Home, Self-Care Time of Disposition Decision: 01:59 Condition: Good Mode of Transportation: Private Vehicle Prescriptions / Home Meds: New oxycodone-acetaminophen [Percocet] 5-325 mg tablet 1 tab PO Q6H PRN (Reason: pain) 3 Days Qty: 12 0RF tamsulosin [Flomax] 0.4 mg capsule 0.4 mg PO DAILY Qty: 14 0RF ondansetron 4 mg tablet,disintegrating 4 mg PO Q8H PRN (Reason: nausea and vomiting) 4 Days Qty: 16 0RF No Action oxycodone-acetaminophen [Percocet] 5-325 mg tablet 1 tab PO Q6H PRN (Reason: pain) 5 Days Qty: 20 0RF aspirin [Adult Aspirin Regimen] 81 mg tablet,delayed release (DR/EC) 81 mg PO DAILY multivitamin Tablet 1 tab PO DAILY pravastatin 20 mg tablet 20 mg PO QPM levothyroxine 125 mcg capsule 125 mcg PO DAILY Qty: 30 0RF Print Language: Upper Sorbian Instructions: Kidney Stones (ED), How to Strain Your Urine (ED) Additional Instructions: Call the office of your primary care doctor to arrange for follow-up within the above-stated timeframe. Your ED visit was focused on your acute issue and does not replace primary care. You should review your labs, imaging, and diagnoses from this ED visit with your primary care physician. There may be non-emergent/ incidental findings that need further evaluation. You should review your vital signs including blood pressure with your PCP. If you were prescribed medications you should discuss possible side-effects and drug interactions with your pharmacist. Call 911 or go to the nearest Emergency Department if you develop any new or worsening symptoms. Seek immediate medical attention if you develop: worsening abdominal pain, new or worsening nausea, new or worsening vomiting, new or worsening diarrhea, chest pain, shortness of breath, pain with urination, problems urinating, fever, chills, weakness, or any new or worsening symptoms. Use pain medications as prescribed. Strain your urine so that we know if stones pass. There were 2 kidney stones. Referrals: MIGNON BOWERS [Primary Care Provider] - 1 week Sukhi Clark MD [Physician] - 1 week (Call the office for diagnosis based follow-up)
[2024-07-20] MEDS: KETOROLAC TROMETHAMINE 30 MG/ML VIAL 15 MG IVP (02:21)
[2024-07-20] MEDS: ONDANSETRON 4 MG RAPDIS TABLET SL (02:22)
[2024-07-20] MEDS: OXYCODONE HCL/ACETAMINOPHEN 5MG/325MG 2 TAB PO (02:22)
== END 2024-07-20 02:34 | disposition home or self-care (01) ==
PROVIDERS: Emergency Provider Student in an Organized Health Care Education/Training Program; PCP Family Medicine
DX: N13.2 Hydronephrosis with renal and ureteral calculous obstruction (principal); Z98.84 Bariatric surgery status; Z90.3 Acquired absence of stomach [part of]; Z90.49 Acquired absence of other specified parts of digestive tract; K76.0 Fatty (change of) liver, not elsewhere classified
CPT/HCPCS: 36415; 74177; 80053; 81001; 83605; 83690; 85025; 96374; 96375; 99285; J1885; J2270; J2405; Q0162; Q9967

== ENCOUNTER 2024-07-25 09:07 | Outpatient (OUT) | payer MEDICARE, OTHER, MEDICAID, SELFPAY ==
--- NOTE | 2024-07-25 09:16 | XR_ITS ---
The [address] [address] Patient Name: YARI ALSTON MRN: [id number] date: 1965 Sex: F Assigned Patient Location: [facility] Current Patient Location: [facility] Accession/Order Number: [id number] Exam Date: 07/25/2024 09:18 Report Date: 07/25/2024 13:03 At the request of: RYANNE HYDE Procedure: XR abdomen 1V EXAMINATION: XR abdomen 1V HISTORY: Kidney Stone COMPARISON: No relevant comparison available. FINDINGS: KIDNEY/URETER - RIGHT: No visible renal or ureteral calcifications. KIDNEY/URETER - LEFT: No visible renal or ureteral calcifications. PELVIS: Numerous calcifications within the lower right and left pelvis; nonspecific. BOWEL: No abnormal dilation or deviation. BONES: No acute abnormality. OTHER: Negative. No abnormal gaseous collections. XR/XR abdomen 1V IMPRESSION: 1. No visible stones projecting over the kidneys or expected course of the proximal and mid ureters. 2. Numerous pelvic calcifications. While most of these represent phleboliths, a distal right ureteral stone cannot be excluded. Electronically authenticated by: JACOB OJEDA Date: 07/25/2024 13:03
== END 2024-07-25 09:08 | disposition home or self-care (01) ==
LOC: RAD 09:10
PROVIDERS: PCP Family Medicine; Visit Provider Urology
DX: N20.0 Calculus of kidney (principal)
CPT/HCPCS: 74018

== ENCOUNTER 2024-08-10 14:20 | Outpatient (OUT) | payer MEDICARE, OTHER, MEDICAID, SELFPAY ==
[2024-08-10 15:06] LABS: Anion Gap 11.5; BUN Creatinine Ratio 16.4; Calcium 9.6 mg/dL (8.5-10.1); Carbon Dioxide 33.3 mmol/L (21.0-32.0); Chloride 102 mmol/L (98-107); Estimated GFR (African America >60 (>=60 mL/min/1.73m^2); Estimated GFR (Non-African Ame 51 (>=60 mL/min/1.73m^2); Glucose 156 mg/dL (74-106); Potassium 4.8 mmol/L (3.5-5.1); Sodium 142 mmol/L (136-145); TSH W/ REFLEX FT4 2.051 uIU/mL (0.358-3.740)
== END 2024-08-10 14:21 | disposition home or self-care (01) ==
LOC: LAB 14:20
PROVIDERS: PCP Family Medicine; Visit Provider Nurse Practitioner Family
DX: R06.09 Other forms of dyspnea (principal); R60.9 Edema, unspecified; I27.20 Pulmonary hypertension, unspecified
CPT/HCPCS: 36415; 80048; 83880; 84443

== ENCOUNTER 2024-08-30 14:54 | Outpatient (OUT) | payer MEDICARE, OTHER, MEDICAID, SELFPAY ==
[2024-08-30 15:44] LABS: Anion Gap 11.7; Calcium 9.6 mg/dL (8.5-10.1); Carbon Dioxide 29.6 mmol/L (21.0-32.0); Chloride 103 mmol/L (98-107); Estimated GFR (African America >60 (>=60 mL/min/1.73m^2); Estimated GFR (Non-African Ame 53 (>=60 mL/min/1.73m^2); Glucose 106 mg/dL (74-106); Potassium 3.3 mmol/L (3.5-5.1); Sodium 141 mmol/L (136-145)
== END 2024-08-30 14:55 | disposition home or self-care (01) ==
LOC: LAB 14:55
PROVIDERS: PCP Family Medicine; Visit Provider Nurse Practitioner Family
DX: R60.9 Edema, unspecified (principal)
CPT/HCPCS: 36415; 80048

== ENCOUNTER 2024-09-04 15:41 | Outpatient (OUT) | payer MEDICARE, OTHER, MEDICAID, SELFPAY | END 2024-09-04 15:42 | disposition home or self-care (01) | PROVIDERS: PCP Family Medicine; Visit Provider Nurse Practitioner Family | DX: R06.02 Shortness of breath (principal) | CPT/HCPCS: 71275; Q9967 ==

== ENCOUNTER 2024-09-11 13:59 | Outpatient (OUT) | payer MEDICARE, OTHER, MEDICAID, SELFPAY ==
[2024-09-11 14:36] LABS: Anion Gap 11.2; Calcium 9.6 mg/dL (8.5-10.1); Carbon Dioxide 33.4 mmol/L (21.0-32.0); Chloride 101 mmol/L (98-107); Estimated GFR (African America >60 (>=60 mL/min/1.73m^2); Estimated GFR (Non-African Ame 57 (>=60 mL/min/1.73m^2); Glucose 106 mg/dL (74-106); Potassium 3.6 mmol/L (3.5-5.1); Sodium 142 mmol/L (136-145)
== END 2024-09-11 14:00 | disposition home or self-care (01) ==
LOC: LAB 14:01
PROVIDERS: PCP Family Medicine; Visit Provider Nurse Practitioner Family
DX: R60.9 Edema, unspecified (principal)
CPT/HCPCS: 36415; 80048

== ENCOUNTER 2024-09-25 16:19 | Outpatient (OUT) | payer MEDICARE, OTHER, MEDICAID, SELFPAY ==
[2024-09-25 17:15] LABS: Potassium 3.8 mmol/L (3.5-5.1); Thyroid Stimulating Hormone 0.283 uIU/mL (0.358-3.740)
== END 2024-09-25 16:20 | disposition home or self-care (01) ==
LOC: LAB 16:20
PROVIDERS: PCP Family Medicine; Visit Provider Internal Medicine Cardiovascular Disease
DX: I48.0 Paroxysmal atrial fibrillation (principal)
CPT/HCPCS: 36415; 83735; 84132; 84443

== ENCOUNTER 2024-11-15 08:49 | Outpatient (OUT) | payer MEDICARE, OTHER, MEDICAID, SELFPAY ==
[2024-11-15 10:14] LABS: Thyroid Stimulating Hormone 3.459 uIU/mL (0.358-3.740)
== END 2024-11-15 08:50 | disposition home or self-care (01) ==
LOC: LAB 08:52
PROVIDERS: PCP Family Medicine; Visit Provider Internal Medicine Cardiovascular Disease
DX: I48.0 Paroxysmal atrial fibrillation (principal); E03.8 Other specified hypothyroidism
CPT/HCPCS: 36415; 84443

== ENCOUNTER 2025-03-19 12:26 | Outpatient (OUT) | payer MEDICARE, OTHER, MEDICAID, SELFPAY ==
--- OUTSIDE RECORDS SUMMARY | 2024-05-22 11:45 | XMS_ITS ---
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 * Medical History: Objective: * Vitals: Assessment: Plan: * Treatment: * Billing Information: * Visit Code: * Procedure Codes: * Electronic signature of Sofie Piña DDS on 03/19/2025 at 07:01 AM EDT Sign off status: Pending * Provider: Angela Piña DDS Date: 07/22/2023 Generated for Lynn salazar/Nannette/eTranoliveritting on: 0 03/19/2025 07:01 AM EDT
--- OUTSIDE RECORDS SUMMARY | 2025-03-06 09:00 | XMS_ITS | Encounter Summary ---
Author Organization [facility] Address [address] [place] [address] Care Team Providers Care Route Salesman Name Role Phone Holland Lyons MD Primary Care Provider + [phone] Reason for Visit * Rehabilitation - Outpatient (Routine) - Closed Specialty Diagnoses / Procedures Referred By Raul lui Referred To Contact Physical Therapy Diagnoses S/P arthroscopy of left shoulder Procedures FL OFFICE/OUTPATIENT [facility] 60 MINUTES Gilberto Braun, [employer]RAFTER [employer] [address] [place] [address] Phone: tel: fax: Elvira Martin PT Referral ID Status Reason Start Date Expiration Date V isits Requested Visits Authorized [id number] Closed Specialty Services Required 02/01/2025 05/01/2025 12 12 Encounter Details Date Type Department Care Team (Late st Contact Info) Description 03/06/2025 9:00 AM EDT Treatment [facility] [address] [place] [phone] Elvira Martin PT Internal derangement of left shoulder (Primary Dx); S/P arthroscopy of left shoulder Social History Tobacco Use Types Packs/Day Years Used Date Smoking Tobacco: Former Cigarettes Alcohol Use Standard Drinks/Week Comments Yes 0 (1 standard drink = 0.6 oz pur e alcohol) Comments Unknown Sex and Gender Information Value Date Recorded Sex Assigned at Female 02/18/2023 7:51 PM EDT Legal Sex Female 6:50 PM EDT Gender Identity Female 02/18/2023 7:51 PM EDT Sexual Orientation Asexual 02/18/2023 7: 51 PM EDT documented as of this encounter Progress Notes * Elvira Martin, PT - 03/06/2025 9:00 AM EDT Images from the original note were not included. Physical Therapy Treatment Visit Patient Name: Lori Daily Today's Date: 03/06/2025 Encounter Diagnoses Name Primary? Internal derangement of left shoulder Yes S/P arthroscopy of left shoulder Visit number: 11 Timed Code Treatment: 30 minutes Total Treatment Time: 40 minutes Time In: 0900 Time Out: 942 History: Pt underwent surgery for left shoulder on January 08. States had a prior surgery on left shoulder last year. Pt states she is not sure what happened during 1st surgery or if something was missed. Pt wearing sling with abductor pillow. Doing elbow exercises at home. Pt states 4 days ago she finally was able to sleep > 10 minutes. Taking pain medication to sleep and took one before therapy. Still icing at home at least 2x day. Precautions: PACEMAKER Subjective: Pt states pain remains about the same. Getting dressed is getting a little easier. Pain: 09/11 Objective: PT Evaluation (02/01/2025) LEFT SHOULDER PROM: 50 degrees flexion, 105 degrees abduction, 26 degrees ER Strength: not tested Palpation: mild to moderate tenderness left posterior shoulder Special Test: N/A Treatment: Manual Therapy: (10 minutes) Delivered manual ther to L shoulder, UE Passive ROM and mild GH mobs to shoulder in supine. MFR to upper trap and pec minor Therapeutic Exercise: (20 minutes) guided pt through ther and flex to improve L shoulder UE functional Strength, Endurance, Flexibility, ROM, HEP, Neural Mobilization, Power, and Core Stability as needed. Therapeutic Activity: Exercises to improve dynamic activities, functional tasks, functional mobility to return to prior activity level as needed. Neuromuscular re-education: Balance Training, Muscle Facilitation, Dynamic Stability, Core Stabilization, and Blood Flow Restriction Training (BFRT) as needed. Modalities: (10 minutes) Post session CP to L shoulder pt seated following treatment for pain management. Assessment: Visit #11 with recent left RCR repair performed on 01-08-25. Pt limited to 100 degrees flexion with AAROM, achieves 40 degrees ER with self stretch. PROM remains limited due to pain. Will continue to progress as pt tolerates. Pt has pacemaker do not recommend using ESU. Pt will benefit from further PT to improve shoulder ROM. Outcome Measure: Upper Extremity Functional Index (UEFI): 04/11.0 Rehab Diagnosis: left shoulder pain and weakness, decrease ROM and mobility Short Term Goal: To be met in 2 weeks Goal 1: Pt to be instructed in home exercise program. - met Quarry Boss Goals: To be met in 10 weeks Goal 1: Pt to report independence and compliance with home program. - progressing Goal 2: Pt to achieve 140 degrees of left shoulder flexion to assist with overhead reaching. - not met Goal 3: Pt to achieve 120 degrees of left shoulder abduction to assist with grooming hair. - not met Goal 4: Pt to achieve 4+/5 strength left shoulder in all planes to assist with functional tasks andlifting. - not met Goal 5: Pt to score no less than 55/80 on UEFI indicating improved QOL. - not met Pt will benefit from skilled PT for 3x/week from 02/01/2025 to 04/26/2025 to address the above impairments. I hereby deem this POC medically necessary. Please sign below. Date: documented in this encounter Plan of Treatment Upcoming Encounters Date Type Department Care Team (Late st Contact Info) Description 03/22/2025 8:45 AM EDT Office Visit [facility] [address] [place] [phone] Gilberto Braun, DRAFTER [employer] [address] [place], [place] [phone] 03/27/2025 8:30 AM EDT Treatment [facility] [address] [facility] [address] [place] [address] Isis Dave, CARA 03/30/2025 7:00 AM EDT Treatment [facility] [address] [place] [address] Isis Dave, FREELANCE DIRECTOR 04/03/2025 8:30 AM EDT Treatment [facility] [address] [place] [address] Corina Daveissa, FREELANCE DIRECTOR 04/05/2025 8:30 AM EDT Treatment [facility] [address] [place] [address] Desmond Le, FREELANCE DIRECTOR 04/10/2025 8:30 AM EDT Treatment [facility] [address] [place] [address] Corina Daveissa, FREELANCE DIRECTOR 04/13/2025 7:00 AM EDT Treatment [facility] [address] [place] [address] Corina Daveissa, FREELANCE DIRECTOR 04/17/2025 10:30 AM EDT Treatment [facility] [address] [place] [address] Isis Dave, FREELANCE DIRECTOR 04/20/2025 7:00 AM EDT Treatment [facility] [address] [place] [address] Elvira Martin, PT 04/24/2025 8:30 AM EDT Treatment [facility] [address] [place] [address] Corina Daveissa, FREELANCE DIRECTOR 04/27/2025 7:00 AM EDT Treatment [facility] [address] [place] [address] Isis Dave, FREELANCE DIRECTOR 05/01/2025 8:30 AM EDT Treatment [facility] [address] [place] [address] Isis Dave, FREELANCE DIRECTOR 05/04/2025 7:00 AM EDT Treatment [facility] [address] [facility] [address] [place] [address] Elvira Martin PT documented as of this encounter Visit Diagnoses Diagnosis Internal derangement of left shoulder- Primary S/P arthroscopy of left shoulder documented in this encounter Care Teams Route Salesman Relationship Specialty Start Date End Date Holland Lyons MD PCP - General Family Medicine 08/06/23 documented as of this encounter
--- OUTSIDE RECORDS SUMMARY | 2025-03-08 09:40 | XMS_ITS | Encounter Summary ---
Author Organization [facility] tem Address [id number] [address] 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 [address] [place] [address] Phone: tel: fax: [facility]N [facility] [address] [place] [address] Phone: tel: fax: Referral ID Status Reason Start Date Expiration Date V isits Requested Visits Authorized [id number] Closed Specialty Services Required 03/02/2025 03/02/2026 1 1 Encounter Details Date Type Department Care Team (Late st Contact Info) Description 03/08/2025 9:40 AM EDT Office Visit [facility] [address] [place] [address] Lori Carter MD [address] [place] [address] DARLEEN (acute kidney injury) (Primary Dx); Abnormal kidney function Social History Tobacco Use Types Packs/Day Years Used Date Smoking Tobacco: Former Smokeless Tobacco: Never Comments:15 yrs 1/2 PPD 25 yrs since quit Alcohol Use Standard Drinks/Week Comments Not Currently 0 (1 standard drink = 0.6 oz pur e alcohol) Social Connection and Isolat ion Panel [NHANES] Answer Date Recorded In a typical week, how many times do you talk on the phone with family, friends, or neighbors? More than three times a week 12/22/2022 How often do you get togethe r with friends or relatives? More than three times a week 12/22/2022 How often do you attend chur or druze services? More than 4 times per year 12/22/2022 Do you belong to any clubs o r organizations such as zoroastrianism groups, unions, fraternal or athletic groups, or school groups? Yes 12/22/2022 How often do you attend meet ings of the clubs or organizations you belong to? Never 12/22/2022 Are you , , di vorced, , never , or living with a partner? 12/22/2022 AUDIT-C Answer Date Recorded Q1: How often do you have a drink containing alcohol? Never 12/22/2022 Q2: How many drinks containi ng alcohol do you have on a typical day when you are drinking? Patient does not drink Q3: How often do you have si x or more drinks on one occasion? Never 12/22/2022 Overall Financial Resource Strain (CARDIA) Answe r Date Recorded How hard is it for you to pa y for the very basics like food, housing, medical care, and heating? Not hard at all 12/22/2022 PHQ-2 Answer Date Recorded Total Score 0 01/11/2025 [employer] Occupat ional Health - Occupational Stress Questionnaire Answer Date Recorded Do you feel stress - tense, restless, nervous, or anxious, or unable to sleep at night because your mind is troubled all the time - these days? Not at all 12/22/2022 Exercise Vital Sign Answer Date Recorde d On average, how many days pe r week do you engage in moderate to strenuous exercise (like a brisk walk)? 4 days 12/22/2022 On average, how many minutes do you engage in exercise at this level? 50 min 12/22/2022 PRAPARE - Transportation Answer Date Re corded In the past 12 months, has l ack of transportation kept you from medical appointments or from getting medications? No 12/04 In the past 12 months, has l ack of transportation kept you from meetings, work, or from getting things needed for daily living? No 12/22/2022 Housing Instability Answer Date Recorde d Are you worried or concerned that in the next two months you may not have stable housing that you own, rent or stay in as a part of a household? No 12/22/2022 Childcare Answer Date Recorded Do problems getting child ca re make it difficult for you to work or study? No 12/22/2022 Employment Answer Date Recorded Do you need help finding a [employer] career center and/or a training program? No 12/22/2022 Hunger Screening Answer Date Recorded Within the past 12 months we worried whether our food would run out before we got money to buy more. Never True 01/11/2025 Within the past 12 months th e food we bought just didn't last and we didn't have money to get more. Never True 01/11/2025 Purpose - Life Answer Date Recorded I have a purpose and direction in my life. Stron gly Agree 12/22/2022 Comments No Sex and Gender Information Value Date Recorded Sex Assigned at Not on file Legal Sex Female 11:46 AM EDT Gender Identity Not on file Sexual Orientation Not on file documented as of this encounter Last Filed Vital Signs Vital Sign Reading Time Taken Comments Blood Pressure 102/69 03/08/2025 9:51 AM EDT Pulse 71 03/08/2025 9:51 AM EDT Temperature - - Respiratory Rate - - Oxygen Saturation 97% 03/08/2025 9:49 AM EDT Inhaled Oxygen Concentration - - Weight 63.5 kg (140 lb) 03/08/2025 9:49 AM EDT Height - - Body Mass Index 24.81 01/11/2025 3:40 PM EDT documented in this encounter Patient Instructions * Patient Instructions* Lori Carter MD - 03/08/2025 9:40 AM EDT Stop spironolactone. Take the Lasix only once a day in the morning You may take additional Lasix 40 mg in the afternoon if you gain 2 lb or more/24 hours. Speak to your heart doctor see if we can reduce metoprolol row a little bit due to low blood pressure. documented in this encounter Progress Notes * Lori Carter MD - 03/08/2025 9:40 AM EDT Images from the original note were not included. PCP: Holland Lyons DO Date of Service: 03/08/25 Reason for Referral: Acute kidney Referring Physician: Holland Lyons DO History of Present Illness Yari Daily is a 59 y.o. female, who was referred to us for evaluation of acute kidney injury.Creatinine has been progressively getting worse since May of 2024. She has extensive past medical history segment for gastric bypass which complicated by perforation she underwent gastrectomy. She has AFib requiring pacemaker she has history of SVT. She is on Lasix Aldactone and metoprolol blood pressure was in the 90s systolic. She does have intermittent diarrhea. She denies any history of kidney stones She does not take any NSAIDs No frequent UTIs. Creatinine on 12/11/2024 went up to 1.3 mg/dL. Creatinine on 01/11/2025 was 1.6 mg/dL with EGFR 37 mL/minute. There was no urine studies. Problem List Acute kidney injury Gastric bypass complicated by perforation with subsequent gastrectomy 2020 at [facility] Hypothyroidism Hyperlipemia GAGE Osteoporosis Nephrolithiasis AFib with slow ventricular response status post permanent pacemaker SVT with history of ablation Hysterectomy Ventral hernia repair Left rotator cuff repair. Reduction Mammoplasty Echocardiogram from December of 2023 showed LV ejection fraction is 72%. 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[facility]) Tinea pedis Vitamin D deficiency Surgical History: Past Surgical History: Procedure Laterality Date CARDIAC ELECTROPHYSIOLOGY MAPPING AND ABLATION 12/08/2023 successful CARDIAC PACEMAKER PLACEMENT 02/07/2024 HERNIA REPAIR HYSTERECTOMY INSERT / REPLACE / REMOVE PACEMAKER 02/07/2024 REDUCTION MAMMAPLASTY 2007 ROTATOR CUFF REPAIR Left 05/25/2024 ROTATOR CUFF REPAIR Left 01/05/2025 STOMACH SURGERY 03/02/2022 partial gastrectomy Social History: Social History Socioeconomic History Marital status: Spouse name: Not on file Number of children: Not on file Years of education: Not on file Highest education level: Not on file Occupational History Not on file Tobacco Use Smoking status: Former Smokeless tobacco: Never Tobacco comments: 15 yrs 1/2 PPD 25 yrs since quit Vaping Use Vaping status: Never Used Substance and Sexual Activity Alcohol use: Not Currently Drug use: Never Sexual activity: Not Currently Partners: Male Other Topics Concern Caffeine Use Yes Social History Narrative Not on file Social Drivers of Health Financial Resource Strain: Low Risk (12/16/2023) Received from [facility] Overall Financial Resource Strain (CARDIA) Difficulty of Paying Living Expenses: Not hard at all Food Insecurity: No Food Insecurity (01/11/2025) Hunger Screening Food Insecurity - Worry: Never True Food Insecurity - Inability: Never True Transportation Needs: No Transportation Needs (12/16/2023) Received from [facility] Transportation In the past 12 months, has lack of transportation kept you from medical appointments or from getting medications?: No Lack of Transportation (Non-Medical): Not on file Physical Activity: Sufficiently Active (12/22/2022) Exercise Vital Sign Days of Exercise per Week: 4 days Minutes of Exercise per Session: 50 min Stress: No Stress Concern Present (12/22/2022) [employer]ational Health - Occupational Stress Questionnaire Feeling of Stress : Not at all Social Connections: Socially Integrated (12/22/2022) Social Connection and Isolation Panel [NHANES] Frequency of Communication with Friends and Family: More than three times a week Frequency of Social Gatherings with Friends and Family: More than three times a week Attends Cheondoism Services: More than 4 times per year Active Member of Clubs or Organizations: Yes Attends Club or Organization Meetings: Never Marital Status: Interpersonal Safety: Not At Risk (11/07/2024) Humiliation, Afraid, Rape, and Kick questionnaire Fear of Current or Ex-Partner: No Emotionally Abused: No Physically Abused: No Sexually Abused: No Housing Instability: Low Risk (12/16/2023) Received from [facility] Housing Stability Vital Sign Unable to Pay for Housing in the Last Year: Not on file Number of Places Lived in the Last Year: Not on file In the last 12 months, was there a time when you did not have a steady place to sleep or slept in [place] (including now)?: No Family History: Family History Problem Relation Age of Onset No Known Problems Mother No Known Problems Father Breast cancer Neg Hx Allergies & Medications Allergies: Allergies Allergen Reactions Cephalexin Hives and Other (See Comments) Other reaction(s): Other: See Comments Peeling of skin Other Reaction(s): Skin pealing Other reaction(s): Other: See Comments Peeling of skin Peeling of skin. Has received multiple courses of piperacillin/tazobactam without noted reaction inpatient. Peeling of skin. Has received multiple courses of piperacillin/tazobactam without noted reaction inpatient. Codeine Anaphylaxis Tramadol Hallucinations, Abnormal Behavior and Other (See Comments) Hallucinations and nightmares Anesthetics - Amide Type - Select Amino Amides Biaxin [Clarithromycin] Sulfamethoxazole Rash Trimethoprim Rash Current Meds: Current Outpatient Medications Medication Sig Dispense Refill apixaban (ELIQUIS) 5 mg tablet Take 1 tablet (5 mg total) by mouth in the morning and 1 tablet (5 mg total) before bedtime. famotidine (PEPCID) 20 mg tablet Take 1 tablet (20 mg total) by mouth in the morning. furosemide (LASIX) 40 mg tablet Take 1 tablet (40 mg total) by mouth daily. isosorbide mononitrate (IMDUR) 30 mg 24 hr tablet Instructions: TAKE 1 TABLET BY MOUTH DAILY DO NOTCRUSH OR CHEW levothyroxine (SYNTHROID, LEVOTHROID) 112 MCG tablet Take 1 tablet (112 mcg total) by mouth in the morning. metoprolol tartrate (LOPRESSOR) 25 mg tablet Take 1 tablet (25 mg total) by mouth in the morning and 1 tablet (25 mg total) before bedtime. oxyCODONE-acetaminophen (PERCOCET) 5-325 mg per tablet as needed. pravastatin (PRAVACHOL) 20 mg tablet Take 1 tablet (20 mg total) by mouth nightly. No current facility-administered medications for this visit. Review of Systems Review of Systems Constitutional: Negative for chills, diaphoresis, fatigue and fever. HENT: Negative for congestion, ear discharge, ear pain, facial swelling and hearing loss. Eyes: Negative for pain, discharge, redness and itching. Respiratory: Negative for cough, shortness of breath and wheezing. Cardiovascular: Positive for chest pain and leg swelling. Negative for palpitations. Gastrointestinal: Negative for abdominal pain, constipation, diarrhea, nausea and vomiting. Endocrine: Negative for polydipsia, polyphagia and polyuria. Genitourinary: Negative for decreased urine volume, difficulty urinating, dysuria, flank pain, frequency, hematuria and urgency. Musculoskeletal: Negative for arthralgias, joint swelling and myalgias. Skin: Negative for pallor, rash and wound. Neurological: Negative for dizziness, tremors, seizures, syncope, weakness, light-headedness, numbness and headaches. Hematological: Negative for adenopathy. Does not bruise/bleed easily. Physical Exam Vital Signs: Vitals: 03/08/25 0949 03/08/25 0951 BP: 95/66 102/69 BP Site: Left Arm Left Arm BP Postition: Sitting Standing BP CUFF SIZE: M (9-13 inches) M (9-13 inches) Pulse: 66 71 SpO2: 97% Weight: 63.5 kg (140 lb) BMI: Body mass index is 24.81 kg/m??. General appearance: alert in no apparent distress. Psychiatric: Oriented to place, time and person HEENT: atraumatic, supple, moist oral mucosa, no JVD Cardiovascular: normal S1-S2, no edema Respiratory: No respiratory distress with no use of accessory muscles. Clear to auscultation bilaterally with no wheezes or crackles Abdomen: soft, no tenderness, no guarding, positive bowel sounds and no hepato or splenomegaly. no CVA tenderness. Vascular: adequate pulses and no carotid bruits. Musculoskeletal: no joint swelling or tenderness. Neurologic: No focal deficit in upper or lower extremities Lymphatic: no cervical or axillary lymphadenopathy. Laboratory Studies Chemistry: Lab Results Component Value Date SODIUM 140 01/11/2025 SODIUM 140 12/11/2024 SODIUM 137 11/19/2021 SODIUM 142 11/03/2021 SODIUM 137 10/27/2021 K 4.0 01/11/2025 K 4.1 12/11/2024 K 4.1 11/19/2021 K 4.0 11/03/2021 K 4.0 10/27/2021 CL 99 01/11/2025 CL 98 12/11/2024 CL 104 11/19/2021 CL 105 11/03/2021 CL 105 10/27/2021 CO2 32 01/11/2025 CO2 34 (H) 12/11/2024 CO2 23 11/19/2021 CO2 26 11/03/2021 CO2 23 10/27/2021 ANIONGAP 9 01/11/2025 ANIONGAP 8 12/11/2024 ANIONGAP 10 11/19/2021 ANIONGAP 11 11/03/2021 ANIONGAP 9 10/27/2021 BUN 24 (H) 01/11/2025 BUN 28 (H) 12/11/2024 BUN 26 (H) 11/19/2021 BUN 29 (H) 11/03/2021 BUN 26 (H) 10/27/2021 CREATININE 1.62 (H) 01/11/2025 CREATININE 1.31 (H) 12/11/2024 CREATININE 0.54 11/19/2021 CREATININE 0.55 11/03/2021 CREATININE 0.61 10/27/2021 EGFR 37 (L) 01/11/2025 EGFR 47 (L) 12/11/2024 CALCIUM 9.5 01/11/2025 CALCIUM 10.0 12/11/2024 CALCIUM 9.4 11/19/2021 CALCIUM 9.2 11/03/2021 CALCIUM 9.3 10/27/2021 MG 2.1 11/03/2021 MG 2.0 10/27/2021 PHOSPHORUS 4.1 11/03/2021 PHOSPHORUS 4.1 10/27/2021 Lab Results Component Value Date TOTALPROTEI 6.9 11/19/2021 TOTALPROTEI 7.0 11/03/2021 ALBUMIN 3.5 11/19/2021 ALBUMIN 3.6 11/03/2021 AST 16 11/19/2021 AST 13 11/03/2021 ALT 16 11/19/2021 ALT 16 11/03/2021 BILIRUBIN 0.4 11/19/2021 BILIRUBIN 0.8 11/03/2021 ALKPHOS 91 11/19/2021 ALKPHOS 87 11/03/2021 Hematology: Lab Results Component Value Date WBC 6.4 12/11/2024 WBC 6.1 11/19/2021 HGB 12.7 12/11/2024 HGB 12.0 11/19/2021 HCT 37.8 12/11/2024 HCT 37.3 11/19/2021 PLT 239 12/11/2024 PLT 175 11/19/2021 Anemia Studies: No results found for: IRONSAT , FERRITIN , [id number] , FOLATE Mineral and Bone Labs: Lab Results Component Value Date CALCIUM 9.5 01/11/2025 CALCIUM 10.0 12/11/2024 PHOSPHORUS 4.1 11/03/2021 PHOSPHORUS 4.1 10/27/2021 Urine Studies: No results found for: COLOR , TURBIDITY , SPECIFICGRA , NITRITE , PHURINE , LEUKOCYTE , PROTEIN , KETONES , UROBILINOGEN , BLOODHGB No results found for: UPROCRTRAT , ALBCREATRA Immunology Profile No results found for: PROTELECTR , SEDRATE , CRP , RF , ANASCREEN , ANTIDSDNA , C3 , C4 , ANCA , MYELOP , PROTEINASE3 , ANTIGLOMERU No results found for: HAV , HEPAIGM , HEPBIGM , HEPBCAB , HBEAG , HEPCAB Imaging Echocardiogram: Echo complete W/3D Recon Independ wkstn Result Date: 12/17/2023 1 1 [facility] Heart Station [address] [id number] [phone] (fax) Echocardiogram-[facility] Name: YARI DAILY Study Date: 12/17/2023 02:02 PM B/P: 121 mmHg/74 mmHg HR: 50 bpm Date of : 1965 Location: [facility] Height: 63 in. Age: 58 year(s) Patient Room: 3174 Weight: 146 lb. Gender: Female Patient Status: OutPt BSA: 1.69 m2 Indication: Tachycardia., S/P SVT Ablation (12/08/2023) Examination: Echocardiogram(Complete) Image Quality: Good Patient Consent: Procedure explained to patient Conclusions Left Ventricle: The left ventricle is normal size. Global left ventricular systolic function is normal. The c alculated 2D EF is 72 %. Left ventricular [...] LVDs, 2D 2.99 cm (2.1cm - 4cm) IVSd,2D 1.07 cm (0.6cm - 1.1cm) LVPWd, 2D 0.71 cm (0.6cm - 0.9cm) LV Mass, 2D ASE 139.12 g LV Mass Index, 2D ASE 82.3 g/m?? (44g/m?? - 88.4g/m??) RWT, MM 0.3 (0 - 0.42) LVSVI, 2D 39.1 ml/m2 LVOT PGmean 2 mmHg LVSV_LVOT 79 ml Right Ventricle Label Value Normal Value RVDd, 2D 3.46 cm (1.9cm - 3.8cm) TAPSE2.9 cm Left Atrium Label Value Normal Value LA Volume, BP 55 ml (22ml - 52ml) LADs, 2D 4.1 cm (2.7cm - 3.8cm) LAESV index, BP 32.5 ml/m?? Right Atrium Label Value Normal Value RA Area 17.3 cm?? Aortic Valve Label Value Normal Value AV DVI 0.68 AV VTI 32.7 cm Mitral Valve Label Value Normal Value MVE Vmax 0.97 m/s MV A Vmax 0.63 m/s MV E/A 1.54 MV E/E' lateral 9.1 MV E' lateral 0.11 m/s TricuspidValve Label Value Normal Value RA Pressure 3 mmHg RVSP 21 mmHg TR Vmax 2.14 m/s Aorta Label Value Normal Value AoAsc 3.2 cm AoRoot, 2D 3 cm (1.4cm - 3.8cm) Valvular Assessment LVOT 0.7 - 1.1 m/sec Aortic Valve 1.0 - 1.7 m/sec Mitral Valve 0.6 - 1.3 m/sec Tricuspid Valve 0.3 - 0.7 m/sec Pulmonic Valve 0.6 - 0.9 m/sec Regurgitation No No Trivial Trivial Stenosis No No No No Max Velocity 1.00 m/sec 1.47 m/s 0.97 m/sec 0.42 m/s 0.79 m/s Max Gradient 9.00 mmHg 1.00 mmHg 3.00 mmHg Mean Gradient 4.00 mmHg Valve Area 2.4 cm?? Findings Left Ventricle: The left ventricle is normal [...] The left atrium is normal in size. Right Atrium: The rightatrium is normal in size. Mitral Valve: The mitral valve is normal in mobility and thickness. No mitral regurgitation. No mitral valve stenosis. Aortic Valve: The aortic valve is normal. No aortic valve regurgitation. No aortic valve stenosis. The aortic valve is trileaflet. Tricuspid Valve: Normaltricuspid valve. Trivial tricuspid regurgitation. No tricuspid valve stenosis. Pulmonic Valve: Normal pulmonary valve. Trivial pulmonary regurgitation. No pulmonic valve stenosis. Aorta: The aortic root is normal in size. The ascending aorta measures 3.20 cm. Ascending aorta is normal in size. The aortic arch measures 2.60 cm. Aortic arch is normal in size. Great Vessels: IVC: Unable to assess IVC. Pericardium: A pericardial fat pad is present. No pericardial effusion. Procedure Staff Reading Group: [facility] Referring Physician: HANNAH LYONS Lpta: Tiffany Arias RDCS, RVT, RN, BSN Ordering Physician: CJ PETERSON Assessment Acute kidney injury likely due to prerenal factors in the setting of ongoing intake of Lasix as well as Aldactone. Rule out obstructive uropathy also could be due to renal hypoperfusion in the setting of relative hypotension. Hypertension blood pressure is on the low side. Volume status she has normal LV ejection fraction. She is currently on Lasix 40 mg p.o. b.i.d. and Aldactone. Plan Decrease Lasix to 40 mg p.o. daily Stop Aldactone She was advised to take additional Lasix 40 mg in the afternoon if she gains greater than 2 lb/24 hours Suggest to decrease metoprolol to 12.5 mg p.o. b.i.d. she will discuss that with her ceramic chemist at [facility] [place]. Check renal ultrasound Check serology workup Check multiple myeloma workup Avoid NSAIDs. Patient was educated about chronic kidney disease Return to the office in about 4 weeks Thank you Holland Lyons DO for the referral and involving me in the patient's care. Please contact me at [phone] (Office) or [phone] (Answering service) with any questions. Lori Carter MD [facility] This note was created with the assistance of a speech-recognition program. Although the intention is to generate a document that actually reflects the content of the visit, no guarantees can be provided that every mistake has been identified and corrected by editing. documented in this encounter Plan of Treatment Upcoming Encounters Date Type Department Care Team (Late st Contact Info) Description 04/18/2025 3:40 PM EDT [facility] [address] [facility] [address] [place] [address] Griselda Moore, INSOLE FILLER-[facility] [address] [place], [place] [id number] 11/08/2025 2:00 PM EDT Office Visit [facility] [address] [place] [id number] Scheduled Orders Name Type Priority Associated Diagnoses Orde r Schedule Calcium Lab Routine DARLEEN (acute kidney injury) 1 Occurrences starting 03/08/2025 until 03/08/2026 CBC without diff Lab Routine DARLEEN (acute kidney injury) 1 Occurrences starting 03/08/2025 until 03/08/2026 Magnesium Lab Routine DARLEEN (acute kidney injury) 1 Occurrences starting 03/08/2025 until 03/08/2026 Phosphorus Lab Routine DARLEEN (acute kidney injury) 1 Occurrences starting 03/08/2025 until 03/08/2026 Protein creat ratio Lab Routine DARLEEN (acute kidney injury) 1 Occurrences starting 03/08/2025 until 03/08/2026 Urinalysis Lab Routine DARLEEN (acute kidney injury) 1 Occurrences starting 03/08/2025 until 03/08/2026 Microalbumin - Albumin: Creatinine Urine Ratio Lab Routine DARLEEN (acute kidney injury) 1 Occurrences starting 03/08/2025 until 03/08/2026 Electrolyte panel Lab Routine DARLEEN (acute kidney injury) 1 Occurrences starting 03/08/2025 until 03/08/2026 BUN Lab Routine DARLEEN (acute kidney injury) 1 Occurrences starting 03/08/2025 until 03/08/2026 Creatinine includes GFR, serum Lab Routine DARLEEN (acute kidney injury) 1 Occurrences starting 03/08/2025 until 03/08/2026 documented as of this encounter Results * Ultrasound retroperitoneal complete (03/14/2025 9:28 AM EDT) Anatomical Region Laterality Modality Body Ultrasound 03/15/2025 1:31 PM EDT Narrative 03/15/2025 1:34 PM EDT CLINICAL INFORMATION: Acute kidney injury. COMPARISON: Abdominal radiograph dated 01/24/2025. FINDINGS: RIGHT KIDNEY: Length: 9.6 cm. Cortical Thickness/Echogenicity: Normal Hydronephrosis: None noting minimal pelviectasis of the renal pelvis measuring 0.9 cm Calculus: Few nonobstructive stones, the largest measures 0.4 cm in the interpolar region. Mass: None Other: None LEFT KIDNEY: Length: 9.4 cm. Cortical Thickness/Echogenicity: Normal Hydronephrosis: None Calculus: None Mass: None Other: None URINARY BLADDER: Normal morphology. Right ureteral jet visualized. Left ureteral jet not visualized. Prevoid volume: 258 mL. No significant post void residual. IMPRESSION: 1. No hydronephrosis. 2. Few nonobstructive sub-5 mm right renal stones. 3. No significant bladder postvoid residual. Finalized by Daniella Christensen MD on 03/15/2025 1:34 PM Procedure Note Daniella Christensen MD - 03/15/2025 CLINICAL INFORMATION: Acute kidney injury. COMPARISON: Abdominal radiograph dated 01/24/2025. FINDINGS: RIGHT KIDNEY: Length: 9.6 cm. Cortical Thickness/Echogenicity: Normal Hydronephrosis: None noting minimal pelviectasis of the renal pelvismeasuring 0.9 cm Calculus: Few nonobstructive stones, the largest measures 0.4 cm in theinterpolar region. Mass: None Other: None LEFT KIDNEY: Length: 9.4 cm. Cortical Thickness/Echogenicity: Normal Hydronephrosis: None Calculus: None Mass: None Other: None URINARY BLADDER: Normal morphology. Right ureteral jet visualized. Left ureteral jet not visualized. Prevoid volume: 258 mL. No significant post void residual. IMPRESSION: 1. No hydronephrosis. 2. Few nonobstructive sub-5 mm right renal stones. 3. No significant bladder postvoid residual. Finalized by Daniella Christensen MD on 03/15/2025 1:34 PM Lori Carter MD [facility] [place] ORDERABLES Final Res ult * Microalbumin - Albumin: Creatinine Urine Ratio (03/08/2025 11:32 AM EDT) URINE CREATININE,RDM 39.72 mg/dL 03/08/2025 2:44 PM EDT [facility] MALB/CREAT RATIO 03/08/20 2:44 PM EDT [facility] Comment:Urine Microalbumin / Creatinine ratio not calculated due to non-numeric component. MICROALBUMIN, URINE <0.7 0.0 - 1.9 mg/dL 03/08/2025 2:44 PM EDT [facility] Urine Urine specimen collection, clean catch / Unknown Collection / Unknown 03/08/2025 11:32 AM EDT 03/08/2025 11:32 AM EDT Lori Carter MD URINE ORDERABLES Final Resu lt [facility] [address] [place] [address], [place] [phone] * Protein creat ratio (03/08/2025 11:32 AM EDT) URINE PROTEIN, RANDOM (MG/L) <40 <120 mg/L 03/08/2025 2:44 PM EDT [facility] URINE CREATININE,RDM 39.72 mg/dL 03/08/2025 2:44 PM EDT [facility] U/PRO/COLD MOLDING PRESS OPERATOR RATIO CALC 03/08/2025 2:44 PM EDT [facility] Comment:Urine Protein / Crea tinine Ratio not calculated due to non-numeric component. Urine Urine specimen collection, clean catch / Unknown Collection / Unknown 03/08/2025 11:32 AM EDT 03/08/2025 11:32 AM EDT us Lori Carter MD URINE ORDERABLES Final Resu lt [facility] [address] [place] [address], * (ABNORMAL) Urinalysis (03/08/2025 11:32 AM EDT) COLOR Yellow Yellow 03/08/2025 3:45 PM EDT [facility] TURBIDITY Clear Clear 03/08/2025 3:45 PM EDT [facility] SPECIFIC GRAVITY 1.013 1.003 - 1.035 03/08/2025 3:45 PM EDT [facility] NITRITE Negative Negative 03/08/2025 3:45 PM EDT [facility] PH,URINE 5.5 5.0 - 8.5 03/08/2025 3:45 PM EDT [facility] LEUKOCYTE ESTERASE Moderate(A) Negative 03/08/2025 3:45 PM EDT [facility] PROTEIN Negative Negative 03/08/2025 3:45 PM EDT [facility] KETONES (URINE) Negative Negative 3:45 PM EDT [facility] UROBILINOGEN <1.1 eu/dL <1.1 eu/dL 03/08/2025 3:45 PM EDT [facility] BILIRUBIN (URINE) Negative Negative 03/08/2025 3:45 PM EDT [facility] BLOOD/HGB Negative Negative 03/08/2025 3:45 PM EDT [facility] CA OXALATE CRYSTALS Present(A) None 03/08/2025 3:45 PM EDT [facility] HYALINE CASTS 3(H) 0 - 2 03/08/2025 3:45 PM EDT [facility] MUCOUS Present(A) None 03/08/2025 3:45 PM EDT [facility] R.B.CELLS 0 0 - 5 03/08/2025 3:45 PM EDT [facility] SQUAMOUS EPITHELIUM 2 0 - 5 03/08/2025 3:45 PM EDT [facility] W.B.CELLS 7(H) 0 - 5 03/08/2025 3:45 PM EDT [facility] GLUCOSE (URINE) Negative Negative 3:45 PM EDT [facility] Urine Urine / Unknown Collection / Unknown 03/08/2025 11:32 AM EDT 03/08/2025 11:32 AM EDT us Lori Carter MD URINE ORDERABLES Final Resu lt [facility] [address] [place] [address], * CBC without diff (03/08/2025 11:23 AM EDT) WBC 6.2 4 - 11 x10E9/L 03/08/2025 1:49 PM EDT [facility] RBC Count 4.27 3.8 - 5.2 X10E12/L 03/08/2025 1:49 PM EDT [facility] Hemoglobin 12.4 11.7 - 15.5 g/dL 03/08/2025 1:49 PM EDT [facility] Hematocrit 37.3 35 - 47 % 03/08/2025 1:49 PM EDT [facility] MCV 88 80 - 100 fL 03/08/2025 1:49 PM EDT [facility] MCH 29.1 27 - 34 pg 03/08/2025 1:49 PM EDT [facility] MCHC 33.2 32 - 36 g/dL 03/08/2025 1:49 PM EDT [facility] RDW 14.5 11.5 - 15 % 03/08/2025 1:49 PM EDT [facility] Platelet Count 226 150 - 450 X10E9/L 03/08/2025 1:49 PM EDT [facility] MPV 8.3 7 - 12 fL 03/08/2025 1:49 PM EDT [facility] Blood Venous blood / Unknown Venipuncture / Unknown 03/08/2025 11:23 AM EDT 03/08/2025 11:23 AM EDT Lori Carter MD LAB BLOOD ORDERABLES Final Result [facility] [address] [place] [address], [place] [phone] * Magnesium (03/08/2025 11:23 AM EDT) MAGNESIUM 2.2 1.8 - 2.6 mg/dL 03/08/2025 2:50 PM EDT [facility] Blood Venous blood / Unknown Venipuncture / Unknown 03/08/2025 11:23 AM EDT 03/08/2025 11:23 AM EDT Lori Carter MD LAB BLOOD ORDERABLES Final Result [facility] [address] [place] [address], [place] [phone] * Phosphorus (03/08/2025 11:23 AM EDT) PHOSPHORUS 4.0 2.4 - 4.9 mg/dL 03/08/2025 2:50 PM EDT [facility] Blood Venous blood / Unknown Venipuncture / Unknown 03/08/2025 11:23 AM EDT 03/08/2025 11:23 AM EDT us Lori Carter MD LAB BLOOD ORDERABLES Final Result [facility] [address] [place] [address], * (ABNORMAL) Basic Metabolic Panel (03/08/2025 11:23 AM EDT) Pathologist [facility] SODIUM 142 134 - 146 mmol/L 03/08/2025 2:50 PM EDT [facility] POTASSIUM 3.8 3.5 - 5.0 mmol/L 03/08/2025 2:50 PM EDT [facility] CHLORIDE 100 98 - 109 mmol/L 03/08/2025 2:50 PM EDT [facility] CARBON DIOXIDE 31 22 - 32 mmol/L 03/08/2025 2:50 PM EDT [facility] ANION GAP 11 5 - 15 mmol/L 03/08/2025 2:50 PM EDT [facility] BLOOD UREA NITROGEN 25(H) 5 - 23 mg/dL 03/08/2025 2:50 PM EDT [facility] CREATININE 0.93 0.40 - 1.00 mg/dL 03/08/2025 2:50 PM EDT [facility] Comment:METHOD TRACEABLE TO IDMS STANDARD GLUCOSE 90 65 - 99 mg/dL 03/08/2025 2:50 PM EDT [facility] CALCIUM 9.6 8.5 - 10.5 mg/dL 03/08/2025 2:50 PM EDT [facility] EGFR Non-Race Dependent 71 >=60 ml/min/1.7 3sq.m 03/08/2025 2:50 PM EDT [facility] Comment: Reported eGFR is based on the CKD-EPI 2020 equation that does not use a race coefficient. Blood Venous blood / Unknown Venipuncture / Unknown 03/08/2025 11:23 AM EDT 03/08/2025 11:23 AM EDT Lori Carter MD LAB BLOOD ORDERABLES Final Result [facility] [address] [place] [address], [place] [phone] * Protein electrophoresis, serum (03/08/2025 11:23 AM EDT) TOTAL PROTEIN 6.8 6.0 - 8.0 g/dL 03/09/2025 5:47 PM EDT [facility] ALPHA 1 GLOBULIN 0.3 0.1 - 0.4 g/dL 03/09/2025 5:47 PM EDT [facility] ALPHA 2 GLOBULIN 0.7 0.4 - 1.1 g/dL 03/09/2025 5:47 PM EDT [facility] BETA GLOBULIN 0.9 0.5 - 1.2 g/dL 03/09/2025 5:47 PM EDT [facility] GAMMA GLOBULIN 0.9 0.5 - 1.6 g/dL 03/09/2025 5:47 PM EDT [facility] Protein Electrophoresis Interp Unremarkable protein distribution, no monoclonal bands 03/09/2025 5:47 PM EDT [facility] Albumin 4.1 3.4 - 5.3 g/dL 03/09/2025 5:47 PM EDT [facility] Blood Venous blood / Unknown Venipuncture / Unknown 03/08/2025 11:23 AM EDT 03/08/2025 11:23 AM EDT us Lori Carter MD LAB BLOOD ORDERABLES Final Result [facility] [address] [place] [address], * Rheumatoid factor (03/08/2025 11:23 AM EDT) RHEUMATOID FACTOR <10 <20 IU/mL 03/08/2025 2:50 PM EDT [facility] Blood Venous blood / Unknown Venipuncture / Unknown 03/08/2025 11:23 AM EDT 03/08/2025 11:23 AM EDT Lori Carter MD LAB BLOOD ORDERABLES Final Result [facility] [address] [place] [address], * Proteinase 3 AB PR3 (03/08/2025 11:23 AM EDT) PROTEINASE 3 IGG AB <0.2 <1.0 AI 03/08/2025 4:24 PM EDT [facility] Blood Venous blood / Unknown Venipuncture / Unknown 03/08/2025 11:23 AM EDT 03/08/2025 11:23 AM EDT us Lori Carter MD LAB BLOOD ORDERABLES Final Result [facility] [address] [place] [address], * Myeloperoxidase AB (03/08/2025 11:23 AM EDT) MYELOPEROXIDASE AB <0.2 <1.0 AI 2024 4:24 PM EDT [facility] Blood Venous blood / Unknown Venipuncture / Unknown 03/08/2025 11:23 AM EDT 03/08/2025 11:23 AM EDT Lori Carter MD LAB BLOOD ORDERABLES Final Result [facility] [address] [place] [address], * (ABNORMAL) Immunoelectrophoresis for Therapy Monitoring (03/08/2025 11:23 AM EDT) IGA 230 68 - 378 mg/dL 03/11/2025 8:54 AM EDT [facility] IGG 962 635 - 1,741 mg/dL 03/11/2025 8:54 AM EDT [facility] IGM 94 45 - 281 mg/dL 03/11/2025 8:54 AM EDT [facility] FREE KAPPA LT CHAINS 2.30(H) 0.33 - 1.94 mg/dL 03/11/2025 8:54 AM EDT [facility] Immune Profile Interpretation See Pathology Report 03/11/2025 8:54 AM EDT [facility] FREE LAMBDA LT CHAINS 1.85 0.57 - 2.63 mg/dL 03/11/2025 8:54 AM EDT [facility] FREE JAVIER/LAMBD RATIO 1.24 0.26 - 1.65 03/11/2025 8:54 AM EDT [facility] Blood Venous blood / Unknown Venipuncture / Unknown 03/08/2025 11:23 AM EDT 03/08/2025 11:23 AM EDT Lori Carter MD LAB BLOOD ORDERABLES Final Result [facility] [address] [place] [address], * Hepatitis B surface antigen (03/08/2025 11:23 AM EDT) HEPATITIS B SURF AG Non-Reacti ve Non-Reacti ve 03/08/2025 3:34 PM EDT [facility] Blood Venous blood / Unknown Venipuncture / Unknown 03/08/2025 11:23 AM EDT 03/08/2025 11:23 AM EDT Lori Carter MD LAB BLOOD ORDERABLES Final Result [facility] [address] [place] [address], [place] [phone] * Hepatitis B Surface Antibody Quantitation (03/08/2025 11:23 AM EDT) ANTI HBS QUANT. 5.0 mIU/mL 03/08/2025 3:43 PM EDT [facility] Blood Venous blood / Unknown Venipuncture / Unknown 03/08/2025 11:23 AM EDT 03/08/2025 11:23 AM EDT Narrative [facility] - 03/08/2025 3:43 PM EDT Vaccinated: >=10 mIU/mL, Positive (Immune) Unvaccinated: <10 mIU/mL, Negative (Not Immune) us Lori Carter MD LAB BLOOD ORDERABLES Final Result [facility] [address] [place] [address], [place] [phone] * Hepatitis B core antibody, total (03/08/2025 11:23 AM EDT) ANTI HBC Non-Reacti ve Non-Reacti ve 03/08/2025 3:29 PM EDT [facility] Blood Venous blood / Unknown Venipuncture / Unknown 03/08/2025 11:23 AM EDT 03/08/2025 11:23 AM EDT Lori Carter MD LAB BLOOD ORDERABLES Final Result [facility] [address] [place] [address], [place] [phone] * Glomerular basement membrane IgG AB (03/08/2025 11:23 AM EDT) GBM IGG AB <0.2 <1.0 AI 03/08/2025 4:24 PM EDT [facility] Blood Venous blood / Unknown Venipuncture / Unknown 03/08/2025 11:23 AM EDT 03/08/2025 11:23 AM EDT Lori Carter MD LAB BLOOD ORDERABLES Final Result [facility] [address] [place] [address], * Cytoplasmic Neutrophilic Ab (ANCA), S (03/08/2025 11:23 AM EDT) C-ANCA Negative Negative 03/09/2025 2:09 PM EDT [facility] P-ANCA Negative Negative 03/09/2025 2:09 PM EDT [facility] Comment: Negative for cANCA and pANCA patterns by immunofluorescence. ADDITIONAL INFORMATION This test was developed and its performance characteristics determined by [facility] in a manner consistent with CLIA requirements. This test has not been cleared or approved by the [place].S. Food and Drug Administration. Test Performed by: [facility] [address] [id number] Pharmaceutical Process Engineer: Vanessa Simon Ph.D.; CLIA# [id number] Blood Venous blood / Unknown Venipuncture / Unknown 03/08/2025 11:23 AM EDT 03/08/2025 11:23 AM EDT Lori Carter MD LAB BLOOD ORDERABLES Final Result [facility] [address] [place] [address], * Complement profile (C3 AND C4) (03/08/2025 11:23 AM EDT) COMPLEMENT C3 123 86 - 184 mg/dL 03/08/2025 2:50 PM EDT [facility] COMPLEMENT C4 26 16 - 47 mg/dL 03/08/2025 2:50 PM EDT [facility] Blood Venous blood / Unknown Venipuncture / Unknown 03/08/2025 11:23 AM EDT 03/08/2025 11:23 AM EDT Lori Carter MD LAB BLOOD ORDERABLES Final Result [facility] [address] [place] [address], [place] [phone] * CK Total (03/08/2025 11:23 AM EDT) CPK 42 24 - 170 U/L 03/08/2025 2:50 PM EDT [facility] Blood Venous blood / Unknown Venipuncture / Unknown 03/08/2025 11:23 AM EDT 03/08/2025 11:23 AM EDT Lori Carter MD LAB BLOOD ORDERABLES Final Result [facility] [address] [place] [address], [place] [phone] * Hepatitis C(HCV) Ab w/ Reflex to PCR (03/08/2025 11:23 AM EDT) ANTI HCV W/PCR REFLX Non-Reacti ve Non-Reacti ve 03/08/2025 3:39 PM EDT [facility] Comment: If recent infection suspected, recommend repeat testing (>2 months). Rncwsy-ng-wzillx ratio is <1.0. Blood Venous blood / Unknown Venipuncture / Unknown 03/08/2025 11:23 AM EDT 03/08/2025 11:23 AM EDT Lori Carter MD LAB BLOOD ORDERABLES Final Result [facility] [address] [place] [address], [place] [phone] * WATSON Screen w/ Reflex (03/08/2025 11:23 AM EDT) WATSON SCREEN W/REFLEX Negative Negative 03/08/2025 4:23 PM EDT [facility] Blood Venous blood / Unknown Venipuncture / Unknown 03/08/2025 11:23 AM EDT 03/08/2025 11:23 AM EDT Narrative [facility] - 03/08/2025 4:23 PM EDT Testing performed using multiplex flow immunoassay. Eleven difference antigens associated with systemic autoimmunie diseases (dsDNA, Sm, Sm/FLOW MACHINE OPERATOR, FLOW MACHINE OPERATOR, Chromatin, SSA, SSB, Codie-1, Sc170, Ribo P, Centromere B) are included in this sreening tests. Lori Carter MD LAB BLOOD ORDERABLES Final Result [facility] [address] [place] [address], [place] [phone] documented in this encounter Visit Diagnoses Diagnosis DARLEEN (acute kidney injury)- Primary Abnormal kidney function Nonspecific abnormal results of kidney function study DARLEEN (acute kidney injury) documented in this encounter Additional Health Concerns Assessment Noted Time PHQ-9 Depression Total Score: 0 01/12/20 25 3:38 PM EDT documented as of this encounter Care Teams Crop Or Grain Farmworker Relationship Specialty Start Date End Date Holland Lyons DO [address], [place] [address] PCP - General Family Medicine 06/13/19 documented as of this encounter
--- OUTSIDE RECORDS SUMMARY | 2025-03-08 12:30 | XMS_ITS | Encounter Summary ---
Author Organization [facility] Address [address] [place] [address] Care Team Providers Care Deputy Sheriff Bailiff Name Role Phone Holland Lyons DO Primary Care Provider [phone] Encounter Details Date Type Department Care Team (Latest Contact Info) Description 03/08/2025 12:30 PM EDT Ancillary Procedure [facility] [address] [place] [phone] Adjustment and management of cardiac pacemaker Social History Tobacco Use Types Packs/Day Years Used Date Smoking Tobacco: Former Cigarettes Q uit: 1999 Smokeless Tobacco: Never Alcohol Use Standard Drinks/Week Comments Not Currently 0 (1 standard drink = 0.6 oz pur e alcohol) [facility] Utilities Answer Date Recorded In the past 12 months has e electric, gas, oil, or water STYLIGHT threatened to shut off services in your home? No 12/16/2023 Humiliation, Afraid, Rape, and Kick questionnair e Answer Date Recorded Within the last year, have y ou been afraid of your partner or ex-partner? No 12/16/2023 Emotionally Abused Not on file 12/16/2023 Physically Abused Not on file 12/16/2023 Sexually Abused Not on file 12/16/2023 Overall Financial Resource Strain (CARDIA) Answe r Date Recorded How hard is it for you to pa y for the very basics like food, housing, medical care, and heating? Not hard at all 12/16/2023 Transportation Answer Date Recorded In the past 12 months, has l ack of transportation kept you from medical appointments or from getting medications? No 12/16/2023 Lack of Transportation (Non-Medical) Not on file 12/16/2023 Housing Stability Vital Sign Answer Gerson e Recorded Unable to Pay for Housing in the Last Year Not o n file 12/16/2023 Number of Places Lived in the Last Year Not on f ile 12/16/2023 In the last 12 months, was t here a time when you did not have a steady place to sleep or slept in a long term (including now)? No 12/16/2023 Hunger Vital Sign Answer Date Recorded Within the past 12 months, y ou worried that your food would run out before you got the money to buy more. Never true 12/16/19 24 Ran Out of Food in the Last Year Not on file 12/16/2023 Comments No Sex and Gender Information Value Date Recorded Sex Assigned at Female 03/08/2025 1:41 PM EDT Legal Sex Female 9:24 PM EDT Gender Identity Female 03/08/2025 1:41 PM EDT Sexual Orientation Heterosexual or Straight 10/2024 1:41 PM EDT documented as of this encounter Plan of Treatment Upcoming Encounters Date Type Department Care Team (Late st Contact Info) Description 04/10/2025 11:30 AM EDT Ancillary Procedure [address] [place] [phone] 06/19/2025 9:15 AM EST Office Visit [facility] [address] [place] [phone] Adrian Ibrahim MD [address] [place] [phone] documented as of this encounter Procedures Procedure Name Priority Date/Time Associated Diagnosis Comments CARDIAC DEVICE CHECK CHECK - REMOTE Routine 03/12/2025 10:11 AM EDT Adjustment and management of cardiac pacemaker documented in this encounter Results * CARDIAC DEVICE CHECK - REMOTE - PACEMAKER (03/12/2025 10:11 AM EDT) Adrian Ibrahim MD CV IMPLANTABLE CARDIAC DEVICE SD OCEDURES Final Result [facility] documented in this encounter Visit Diagnoses Diagnosis Adjustment and management of cardiac pacemaker Fitting and adjustment of cardiac pacemaker documented in this encounter Care Teams Deputy Sheriff Bailiff Relationship Specialty Start Date End Date Holland Lyons DO PCP - General 01/04/23 documented as of this encounter
--- OUTSIDE RECORDS SUMMARY | 2025-03-13 07:00 | XMS_ITS | Encounter Summary ---
Author Organization [facility] Address [address] [place] [address] Care Team Providers Care Call Center Nurse Name Role Phone Holland Lyons MD Primary Care Provider + [phone] Reason for Visit * Rehabilitation - Outpatient (Routine) - Closed Specialty Diagnoses / Procedures Referred By Raul lui Referred To Contact Physical Therapy Diagnoses S/P arthroscopy of left shoulder Procedures ND OFFICE/OUTPATIENT [facility] 60 MINUTES Gilberto Braun, SPRAY DYER [address] [place] [address] Phone: tel: fax: Elvira Martin PT Referral ID Status Reason Start Date Expiration Date V isits Requested Visits Authorized [id number] Closed Specialty Services Required 02/01/2025 05/01/2025 12 12 Encounter Details Date Type Department Care Team (Late st Contact Info) Description 03/13/2025 7:00 AM EDT Treatment [facility] [address] [place] [address] Isis Dave, CARA Internal derangement of left shoulder (Primary Dx); [...] as of this encounter Progress Notes * Isis Dave, RN HOSPICE - 03/13/2025 7:00 AM EDT Images from the original note were not included. Physical Therapy Progress Visit Patient Name: Lori Daily Today's Date: 03/13/2025 Encounter Diagnoses Name Primary? Internal derangement of left shoulder Yes S/P arthroscopy of left shoulder Visit number: 12 (of 12 auth visits) Timed Code Treatment: 35 minutes Total Treatment Time: 45 minutes Time In: 07:00 AM Time Out: 07:50 AM History: Pt underwent surgery for left shoulder [...] shoulder Special Test: N/A Treatment: Manual Therapy: (15 minutes) Delivered manual ther to L shoulder, [...] following treatment for pain management. Assessment: Visit #12 with recent left RCR repair performed on 01-08-25. 8 weeks P.O pt demos limitedto 100 degrees flexion with AAROM, achieves 40 degrees ER with self stretch. Requires assist from RUE to perform wall slide in flexion. PROM remains limited due to pain. Strength not tested due to recent surgery. Encouraged pt to perform HEP, voices understanding. Pain remains main barrier to progress Pt has pacemaker do not recommend using ESU. Pt will benefit from further PT to improve shoulder ROM and functional strength, 2 x a week for 6-8more weeks Outcome Measure: Upper Extremity Functional Index (UEFI): 04/11.0 Rehab Diagnosis: left shoulder pain and weakness, decrease ROM and mobility Short Term Goal: To be met in 2 weeks Goal 1: Pt to be instructed in home exercise program. - met Mcfp Goals: To be met in 10 weeks [...] POC medically necessary. Please sign below. Date: Cosigned by Elvira Martin, PT at 03/15/2025 8:25 AM EDT documented in this encounter Plan of Treatment Upcoming Encounters Date Type Department Care Team (Late st Contact Info) Description 03/22/2025 8:45 AM EDT Office Visit [facility] [address] [place] [address] Gilberto Braun, SPRAY DYER [address] [place] [address] 03/27/2025 8:30 AM EDT Treatment [facility] [address] [place] [address] Corina Daveissa, RN HOSPICE 03/30/2025 7:00 AM EDT Treatment [facility] [address] [place] [address] Corina Daveissa, RN HOSPICE 04/03/2025 8:30 AM EDT Treatment [facility] [address] [place] [address] Corina Daveissa, RN HOSPICE 04/05/2025 8:30 AM EDT Treatment [facility] [address] [place] [address] Desmond Le, RN HOSPICE 04/10/2025 8:30 AM EDT Treatment [facility] [address] [place] [address] Corina Daveissa, RN HOSPICE 04/13/2025 7:00 AM EDT Treatment [facility] [address] [place] [address] Coirna Daveissa, RN HOSPICE 04/17/2025 10:30 AM EDT Treatment [facility] [address] [place] [address] Corina Daveissa, RN HOSPICE 04/20/2025 7:00 AM EDT Treatment [facility] [address] [place] [address] Elvira Martin, PT 04/24/2025 8:30 AM EDT Treatment [facility] [address] [place] [address] Isis Dave, RN HOSPICE 04/27/2025 7:00 AM EDT Treatment [facility] [address] [facility] [address] [place] [address] Isis Dave, RN HOSPICE 05/01/2025 8:30 AM EDT Treatment [facility] [address] [place] [address] Tenzin Isis, RN HOSPICE 05/04/2025 7:00 AM EDT Treatment [facility] [address] [facility] [address] [place] [address] Elvira Martin, PT documented as of this encounter Visit Diagnoses Diagnosis Internal derangement of left shoulder- Primary S/P arthroscopy of left shoulder documented in this encounter Care Teams Call Center Nurse Relationship Specialty Start Date End Date Holland Lyons MD PCP - General Family Medicine 08/06/23 documented as of this encounter
--- OUTSIDE RECORDS SUMMARY | 2025-03-14 09:01 | XMS_ITS | Encounter Summary ---
Author Organization [facility] tem Address [id number] [address] [place] [address] Care Team Providers Care Bank Manager Name Role Phone KristinaHolland cutler Primary Care Provider [phone] Encounter Details Date Type Department Care Team (Latest Contact Info) Description 03/14/2025 9:01 AM EDT - 03/14/2025 11:59 PM EDT Hospital Encounter [facility] - Ultrasound [address] [place] [address] Lori Carter MD [address] [place] [address] DARLEEN (acute kidney injury) Discharge Disposition: Home Social History Tobacco Use Types Packs/Day Years [...] How often do you attend chur or lutheran services? More than 4 times per year 12/22/2022 Do you belong to any clubs o r organizations such as islam groups, unions, fraternal or athletic groups, or [...] Answer Date Recorded Total Score 0 01/11/2025 [facility] - Occupational Stress [...] Recorded Do you need help finding a [facility] career center and/or a training program? No [...] on file documented as of this encounter Medications at Time of Discharge apixaban (ELIQUIS) 5 mg tablet Take 1 [...] TAKE 1 TABLET BY MOUTH DAILY DO NOT CRUSH OR CHEW 12/12/2024 levothyroxine (SYNTHROID, LEVOTHROID) 112 MCG tablet Take 1 tablet (112 mcg total) by mouth in the morning. 01/01/2025 metoprolol tartrate (LOPRESSOR) 25 mg tablet Take 1 tablet (25 mg total) by mouth in the morning and 1 tablet (25 mg total) before bedtime. oxyCODONE-acetamin ophen (PERCOCET) 5-325 mg per tablet as needed. pravastatin (PRAVACHOL) 20 mg tablet Take 1 tablet (20 mg total) by mouth nightly. 10/14/2022 documented as of this encounter Plan of Treatment Upcoming Encounters Date Type Department Care Team (Late st Contact Info) Description 04/18/2025 3:40 PM EDT Office Visit [facility] [address] [place] [address] Griselda Moore, CLINICAL SUPPORT MANAGER-COOK [place] [address] [place] [address] 11/08/2025 2:00 PM EDT Office Visit [facility] - Family Medicine [address] [place] [address] documented as of this encounter Procedures Procedure Name Priority Date/Time Associated Diagnosis Comments US RETROPERITONEAL COMPLETE Routine 03/14/2025 9:28 AM EDT DARLEEN (acute kidney injury) documented in this encounter Results * Ultrasound retroperitoneal complete [...] on 03/15/2025 1:34 PM Lori Carter MD IMG US ORDERABLES Final Res ult documented in this encounter Visit Diagnoses Diagnosis DARLEEN (acute kidney injury) documented in this encounter Additional Health Concerns Assessment Noted Time PHQ-9 Depression Total Score: 0 01/12/20 25 3:38 PM EDT documented as of this encounter Care Teams Bank Manager Relationship Specialty Start Date End Date Holland Lyons DO [address] [facility] [place] [address] PCP - General Family Medicine 06/13/19 documented as of this encounter
--- OUTSIDE RECORDS SUMMARY | 2025-03-16 08:30 | XMS_ITS | Encounter Summary ---
Author Organization [facility] Address [address] [place] [address] Care Team Providers Care Client Application Support Engineer Name Role Phone Holland Lyons MD Primary Care Provider + [phone] Reason for Visit * Rehabilitation - Outpatient (Routine) - Authorized Specialty Diagnoses / Procedures Referred By Raul lui Referred To Contact Physical Therapy Diagnoses S/P arthroscopy of left shoulder Procedures MO THERAPEUTIC PX 1/> AREAS EACH 15 MIN EXERCISES MO MANUAL THERAPY TQS 1/> REGIONS EACH 15 MINUTES MO THER PX 1/> AREAS EACH 15 MIN NEUROMUSC REEDUCA PHYS/OCC THERAPY SS Gilberto Braun, CIVIL ENGINEERING TEACHER [address] [place] [address] Phone: tel: fax: Elvira Martin PT Referral ID Status Reason Start Date Expiration Date V isits Requested Visits Authorized [id number] Authorized 03/16/2025 06/14/2025 14 14 Encounter Details Date Type Department Care Team (Late st Contact Info) Description 03/16/2025 8:30 AM EDT [facility] [address] [place] [address] Desmond Le, CARA Internal derangement of left shoulder (Primary [...] as of this encounter Progress Notes * Desmond Le, LICENSED CHEMICAL SPRAY TECHNICIAN - 03/16/2025 8:30 AM EDT Images from the original note were not included. Physical Therapy Treatment Visit Patient Name: Lori Daily Today's Date: 03/16/2025 Encounter Diagnoses Name Primary? Internal derangement of left shoulder Yes S/P arthroscopy of left shoulder Visit number: 13 (of 26 auth visits) Timed Code Treatment: 45 minutes Total Treatment Time: 55 minutes Time In: 829 Time Out: 924 History: Pt underwent surgery for left shoulder [...] dressed is getting a little easier. Pain: 4/10 with movement. Objective: PT Evaluation (02/01/2025) LEFT SHOULDER PROM: 50 degrees flexion, 105 degrees abduction, 26 degrees ER Strength: not tested Palpation: mild to moderate tenderness left posterior shoulder Special Test: N/A Treatment: Manual Therapy: (15 minutes) Delivered manual ther to L shoulder, UE Passive ROM and grade II GH mobs to shoulder in supine. Therapeutic Exercise: (30 minutes) guided pt through ther and flex [...] following treatment for pain management. Assessment: Visit #13 with recent left RCR repair performed on 7-7-25. 8 weeks P.O pt demos limitedAROM. Requires assist from R UE to perform wall slide in flexion. PROM empty endrange, limited by pain. AROM is limited due to strength. Encouraged pt to perform HEP of active ROM, voices understanding. Pain remains main barrier to [...] instructed in home exercise program. - met Social Services Goals: To be met in 10 weeks [...] Please sign below. Date: Cosigned by Elvira Martin PT at 03/19/2025 8:37 AM EDT documented in this encounter Plan of Treatment Upcoming Encounters Date Type Department Care Team (Late st Contact Info) Description 03/22/2025 8:45 AM EDT Office Visit [facility] [place] [address] [place] [address] Gilberto Braun, CIVIL ENGINEERING TEACHER [address] [employer] [place] [address] 03/27/2025 8:30 AM EDT Treatment [facility] [address] [place] [address] Isis Dave, LICENSED CHEMICAL SPRAY TECHNICIAN 03/30/2025 7:00 AM EDT Treatment [facility] [address] [place] [address] Corina Daveissa, LICENSED CHEMICAL SPRAY TECHNICIAN 04/03/2025 8:30 AM EDT Treatment [facility] [address] [place] [address] Isis Dave, LICENSED CHEMICAL SPRAY TECHNICIAN 04/05/2025 8:30 AM EDT Treatment [facility] [address] [place] [address] Desmond Le, LICENSED CHEMICAL SPRAY TECHNICIAN 04/10/2025 8:30 AM EDT Treatment [facility] [address] [place] [address] Isis Dave, LICENSED CHEMICAL SPRAY TECHNICIAN 04/13/2025 7:00 AM EDT Treatment [facility] [address] [place] [address] Corina Daveissa, LICENSED CHEMICAL SPRAY TECHNICIAN 04/17/2025 10:30 AM EDT Treatment [facility] [address] [place] [address] Corina Daveissa, LICENSED CHEMICAL SPRAY TECHNICIAN 04/20/2025 7:00 AM EDT Treatment [facility] [address] [place] [address] Elvira Martin, PT 04/24/2025 8:30 AM EDT Treatment [facility] [address] [place] [address] Isis Dave, LICENSED CHEMICAL SPRAY TECHNICIAN 04/27/2025 7:00 AM EDT Treatment [facility] [address] [place] [address] Isis Dave, LICENSED CHEMICAL SPRAY TECHNICIAN 05/01/2025 8:30 AM EDT Treatment [facility] [address] [place] [address] Isis Dave, LICENSED CHEMICAL SPRAY TECHNICIAN 05/04/2025 7:00 AM EDT Treatment [facility] [address] [facility] [address] [place] [address] Elvira Martin, PT documented as of this encounter Visit Diagnoses Diagnosis Internal derangement of left shoulder- Primary S/P arthroscopy of left shoulder documented in this encounter Care Teams Client Application Support Engineer Relationship Specialty Start Date End Date Holland Lyons MD PCP - General Family Medicine 08/06/23 documented as of this encounter
--- OUTSIDE RECORDS SUMMARY | 2025-03-19 07:00 | XMS_ITS | Encounter Summary ---
Author Organization [facility] Address [address] [place] [address] Care Team Providers Care Clay Mixer Name Role Phone Holland Lyons MD Primary Care Provider + [phone] Reason for Visit * Rehabilitation - Outpatient (Routine) - Authorized Specialty Diagnoses / Procedures Referred By Raul lui Referred To Contact Physical Therapy Diagnoses S/P arthroscopy of left shoulder Procedures MS THERAPEUTIC PX 1/> AREAS EACH 15 MIN EXERCISES MS MANUAL THERAPY TQS 1/> REGIONS EACH 15 MINUTES MS THER PX 1/> AREAS EACH 15 MIN NEUROMUSC REEDUCA PHYS/OCC THERAPY SS Gilberto Braun, DRILL SERGEANT [address] [place] [address] Phone: tel: fax: Elvira Martin PT Referral ID Status Reason Start Date Expiration Date V isits Requested Visits Authorized [id number] Authorized 03/16/2025 06/14/2025 14 14 Encounter Details Date Type Department Care Team (Late st Contact Info) Description 03/19/2025 7:00 AM EDT [facility] [address] [place] [address] Isis Dave, EXECUTIVE CONSULTANT Internal derangement of left shoulder (Primary Dx); [...] 03/22/2025 8:45 AM EDT Office Visit [facility] [address] [place] [address] Gilberto Braun, DRILL SERGEANT [address] [place] [address] 03/27/2025 8:30 AM EDT Treatment [facility] [address] [facility] [address] [place] [address] Isis Dave, EXECUTIVE CONSULTANT 03/30/2025 7:00 AM EDT Treatment [facility] [address] [facility] [address] [place] [address] Isis Dave, EXECUTIVE CONSULTANT 04/03/2025 8:30 AM EDT Treatment [facility] [address] [place] [address] Isis Dave, EXECUTIVE CONSULTANT 04/05/2025 8:30 AM EDT Treatment [facility] [address] [place] [address] Desmond Le, EXECUTIVE CONSULTANT 04/10/2025 8:30 AM EDT Treatment [facility] [address] [place] [address] Isis Dave, EXECUTIVE CONSULTANT 04/13/2025 7:00 AM EDT Treatment [facility] [address] [place] [address] Isis Dave, EXECUTIVE CONSULTANT 04/17/2025 10:30 AM EDT Treatment [facility] [address] [place] [address] Isis Dave, EXECUTIVE CONSULTANT 04/20/2025 7:00 AM EDT Treatment [facility] [address] [facility] [address] [place] [address] Elvira Martin, PT 04/24/2025 8:30 AM EDT Treatment [facility] [address] [place] [address] Isis Dave, EXECUTIVE CONSULTANT 04/27/2025 7:00 AM EDT Treatment [facility] [address] [place] [address] Isis Dave, EXECUTIVE CONSULTANT 05/01/2025 8:30 AM EDT Treatment [facility] [address] [facility] [address] [place] [address] Isis Dave, EXECUTIVE CONSULTANT 05/04/2025 7:00 AM EDT Treatment [facility] [address] [facility] [address] [place] [address] Elvira Martin, PT documented as of this encounter Visit Diagnoses Diagnosis Internal derangement of left shoulder- Primary S/P arthroscopy of left shoulder documented in this encounter Care Teams Clay Mixer Relationship Specialty Start Date End Date Holland Lyons MD PCP - General Family Medicine 08/06/23 documented as of this encounter
--- OUTSIDE RECORDS SUMMARY | 2025-03-19 11:20 | XMS_ITS | Encounter Summary ---
Author Organization [facility] Address [address] [place] [address] Care Team Providers Care Drop Pit Worker Name Role Phone Holland Lyons DO Primary Care Provider [phone] Reason for Visit * Reason Comments Follow up 3 month follow up s/ p starting Isosorbide patient feels its not making any difference still feels heart racing 2 to 3 times per week Hypertension AV nancy re-entry tachycardia Hyperlipidemia SVT Vasospastic angina Previous NSTEMI Sinus node dysfunction Pacemaker Encounter Details Date Type Department Care Team (Late st Contact Info) Description 03/19/2025 11:20 AM EDT Office Visit [facility] at [facility] [address] [place] [address] Aldo Wright, MON[address] [place] [address] Sinus node dysfunction (CMS/HCC) (Primary Dx); Cardiac pacemaker in situ; AV nancy re-entry tachycardia; Paroxysmal atrial fibrillation (CMS/HCC); Palpitations; Chronic heart failure with preserved ejection fraction (CMS/HCC); Pulmonary HTN (CMS/HCC); Primary hypertension Social History Tobacco Use Types Packs/Day Years Used Date Smoking Tobacco: Former Cigarettes Q uit: 1999 Smokeless Tobacco: Never Alcohol Use Standard Drinks/Week Comments Not Currently 0 (1 standard drink = 0.6 oz pur e alcohol) [facility] Utilities Answer Date Recorded In the past 12 months has [employer], gas, oil, or water [employer] threatened to shut off services in your [...] place to sleep or slept in a intermediate (including now)? No 12/16/2023 Hunger Vital Sign [...] PM EDT documented as of this encounter Last Filed Vital Signs Vital Sign Reading Time Taken Comments Blood Pressure 98/66 03/19/2025 11:37 AM EDT Pulse 61 03/19/2025 11:37 AM EDT Temperature - - Respiratory Rate - - Oxygen Saturation 97% 03/19/2025 11:37 AM EDT Inhaled Oxygen Concentration - - Weight 64.9 kg (143 lb) 03/19/2025 11:37 AM EDT Height 160 cm (5' 3 ) 03/19/2025 11:37 AM EDT Body Mass Index 25.33 03/19/2025 11:37 AM EDT documented in this encounter Plan of Treatment Upcoming Encounters Date Type Department Care Team (Late st Contact Info) Description 04/10/2025 11:30 AM EDT Ancillary Procedure [facility] [address] [place] [address] 06/19/2025 9:15 AM EST Office Visit [facility] [address] [place] [facility] [address] Adrian Ibrahim MD [address] [place] [address] Scheduled Orders Name Type Priority Associated Diagnoses Orde r Schedule TSH Lab Routine Sinus node dysfunction (CMS/HCC) Paroxysmal atrial fibrillation (CMS/HCC) Palpitations Expected: 03/19/2025 (Approximate), Expires: 03/19/2026 documented as of this encounter Visit Diagnoses Diagnosis Sinus node dysfunction (CMS/HCC)- Primary Cardiac pacemaker in situ AV nancy re-entry tachycardia Other specified cardiac dysrhythmias Paroxysmal atrial fibrillation (CMS/HCC) Atrial fibrillation Palpitations Chronic heart failure with preserved ejection fraction (CMS/HCC) Pulmonary HTN (CMS/HCC) Primary hypertension Unspecified essential hypertension documented in this encounter Care Teams Drop Pit Worker Relationship Specialty Start Date End Date Holland Lyons DO PCP - General 01/04/23 documented as of this encounter
--- OUTSIDE RECORDS SUMMARY | 2025-03-19 12:31 | XMS_ITS | Encounter Summary ---
Author Organization [facility] Address [address] [place] [address] Care Team Providers Care Extrusion Die Coordinator Name Role Phone Holland Lyons Primary Care Provider Source Comments In the event this information is protected by the Federal Confidentiality of Alcohol and Drug AbusePatient Records regulations: The Federal rules restrict any use of the information to criminally investigate or prosecute any alcohol or drug abuse patient.[facility] Encounter Details Date Type Department Care Team (Late st Contact Info) Description 08/31/2022 Patient Msg BMI [facility] [address] [place], [place] [id number] Provider, [facility] Nutrition Summary Social History Tobacco Use Types Packs/Day Years Used Date Smoking Tobacco: Former Cigarettes 0.5 5 1 - 04/13/1998 Smokeless Tobacco: Never Alcohol Use Standard Drinks/Week Comments Not Currently 0 (1 standard drink = 0.6 oz pure alcohol) none in a year as of 02/2022. PHQ-2 Answer Date Recorded PHQ-2 score 3 02/15/2018 Area Deprivation Index Answer Date Homar rded National Score (1-100), lower number is lower ri sk 83 08/02/2022 State Score (1-10), lower number is lower risk N ot on file 08/02/2022 Data from: https://www.neighborhoodatlas.[facility]/. Last address used for calculation [address] 08/02/2022 Comments No Sex and Gender Information Value Date Recorded Sex Assigned at Female 09/24/2021 6:18 PM EDT Legal Sex Female 2:46 PM EDT Gender Identity Female 09/24/2021 6:18 PM EDT Sexual Orientation Straight 09/24/2021 6: 18 PM EDT documented as of this encounter Functional Status * Are you deaf or do you have serious difficulty hearing? Answer Date of Assessment Author No 07/06/2017 3:45 PM Noris March RN * Are you blind or do you have serious difficulty seeing, even when wearing glasses? Answer Date of Assessment Author Yes 07/06/2017 3:45 PM Noris March RN * Do you have serious difficulty walking or climbing stairs? Answer Date of Assessment Author Yes 07/06/2017 3:45 PM Noris March RN * Do you have difficulty dressing or bathing? Answer Date of Assessment Author No 07/06/2017 3:45 PM Noris March RN * Because of a physical, mental, or emotional condition, do you have difficulty doing errands alone such as visiting a doctor's office or shopping? Answer Date of Assessment Author Yes 07/06/2017 3:45 PM Noris March RN documented as of this encounter Mental Status * Because of a physical, mental, or emotional condition, do you have serious difficulty concentrating, remembering, or making decisions? Answer Entry Date Author No 07/06/2017 3:45 PM Noris March RN documented in this encounter Plan of Treatment Not on file documented as of this encounter Visit Diagnoses Not on filedocumented in this encounter Care Teams Extrusion Die Coordinator Relationship Specialty Start Date End Date Holland Lyons DO [address] [place] [address] PCP - General Family Medicine 03/06/16 documented as of this encounter
--- OUTSIDE RECORDS SUMMARY | 2025-03-19 12:31 | XMS_ITS | Encounter Summary ---
Author Organization [facility] Address [address] [place] [address] Care Team Providers Care Automatic Outsole Cutter Name Role Phone Holland Lyons Primary Care Provider Source Comments In the event this information is protected by the Federal Confidentiality of Alcohol and Drug AbusePatient Records regulations: The Federal rules restrict any use of the information to criminally investigate or prosecute any alcohol or drug abuse patient.[facility] Encounter Details Date Type Department Care Team (Late st Contact Info) Description 08/13/2022 Get Medical Advice BMI [facility] REJ [address] [place], [place] [phone] Provider, Ccf Calcium Social History Tobacco Use Types Packs/Day Years [...] N ot on file 08/02/2022 Data from: https://www.neighborhoodatlas.[facility]/. Last address used for calculation [address] 08/02/2022 Comments No Sex and Gender [...] on filedocumented in this encounter Care Teams Automatic Outsole Cutter Relationship Specialty Start Date End Date Holland Lyons DO [address] [place] [address] PCP - General Family Medicine 03/06/16 documented as of this encounter
--- OUTSIDE RECORDS SUMMARY | 2025-03-19 12:31 | XMS_ITS | Encounter Summary ---
Author Organization [facility] Address [address] [place] [place] [address] Care Team Providers Care Public Address Systems Mechanic Name Role Phone Holland Lyons MD Primary Care Provider +[phone] Encounter Details Date Type Department Care Team (Late st Contact Info) Description 02/22/2023 Abstract [facility] [address] [facility] [address] [place] [address] Dewey Chirinos, PT [address] [facility] 170 [place] [address] Social History Tobacco Use Types Packs/Day Years Used Date Smoking Tobacco: Former Cigarettes Tobacco Cessation:Counseling Given: Not Answered Alcohol Use Standard Drinks/Week Comments Yes 0 [...] AM EDT Office Visit [facility] [address] [place] [phone] Gilberto Braun, SHOT PEENING OPERATOR [address] [place] [address] 03/27/2025 8:30 AM EDT Treatment [facility] [address] [place] [address] [place] [address] Isis Dave, WARDROBE ASSISTANT 03/30/2025 7:00 AM EDT Treatment [facility] [address] [place] [address] [place] [address] Isis Dave, WARDROBE ASSISTANT 04/03/2025 8:30 AM EDT Treatment [facility] [address] [place] [address] [place] [address] Isis Dave, WARDROBE ASSISTANT 04/05/2025 8:30 AM EDT Treatment [facility] [address] [place] [address] [place] [address] Desmond Le, WARDROBE ASSISTANT 04/10/2025 8:30 AM EDT Treatment [facility] [address] [place] [address] [place] [address] Isis Dave, WARDROBE ASSISTANT 04/13/2025 7:00 AM EDT Treatment [facility] [address] [place] [address] [place] [address] Isis Dave, WARDROBE ASSISTANT 04/17/2025 10:30 AM EDT Treatment [facility] [address] [place] [address] [place] [address] Isis Dave, WARDROBE ASSISTANT 04/20/2025 7:00 AM EDT Treatment [facility] [address] [place] [address] [place] [address] Elvira Martin, PT 04/24/2025 8:30 AM EDT Treatment [facility] [address] [place] [address] [place] [address] Isis Dave, WARDROBE ASSISTANT 04/27/2025 7:00 AM EDT Treatment [facility] [address] [place] [address] [place] [address] Isis Dave, WARDROBE ASSISTANT 05/01/2025 8:30 AM EDT Treatment [facility] [address] [place] [address] [place] [address] Isis Dave, WARDROBE ASSISTANT 05/04/2025 7:00 AM EDT Treatment [facility] [address] [place] [address] [place] [address] Elvira Martin, PT documented as of this encounter Visit Diagnoses Not on filedocumented in this encounter Care Teams Public Address Systems Mechanic Relationship Specialty Start Date End Date Holland Lyons MD PCP - General Family Medicine 08/06/23 documented as of this encounter
--- OUTSIDE RECORDS SUMMARY | 2025-03-19 12:31 | XMS_ITS | Encounter Summary ---
Author Organization [facility] Address [address] [place] [address] Care Team Providers Care Head Banquet Waiter/Waitress Name Role Phone Holland Lyons DO Primary Care Provider Source Comments In the event this information is protected by the Federal Confidentiality of Alcohol and Drug AbusePatient Records regulations: The Federal rules restrict any use of the information to criminally investigate or prosecute any alcohol or drug abuse patient.[facility] Encounter Details Date Type Department Care Team (Late st Contact Info) Description 02/02/2018 Get Medical Advice Endocrinology [address] [phone] Kendra Dubois MD [address] [place] [address] RE: Non-Urgent Medical Question Social History Tobacco Use Types Packs/Day Years Used Date Smoking Tobacco: Former Cigarettes 0.5 5 1 - 04/13/1998 Smokeless Tobacco: Never Comments:20 yrs ago Alcohol Use Standard Drinks/Week Comments Yes 0 (1 standard drink = 0.6 oz pur e alcohol) socially Comments No Sex and Gender Information Value [...] Diagnoses Not on filedocumented in this encounter Additional Health Concerns Infection Onset Date Last Indicated Resolved Time COVID-19 Rule-Out 12/13/2021 12/13/2021 12/13/2021 6:31 AM EDT COVID-19 Rule-Out 03/03/2022 03/03/2022 03/03/2022 9:43 AM EDT documented as of this encounter Care Teams Head Banquet Waiter/Waitress Relationship Specialty Start Date End Date Holland Lyons DO [address] [place] [address] PCP - General Family Medicine 03/06/16 documented as of this encounter
--- OUTSIDE RECORDS SUMMARY | 2025-03-19 12:31 | XMS_ITS | Encounter Summary ---
Author Organization [facility] Address [address] [place] [address] Care Team Providers Care Manager Proposal Name Role Phone Holland Lyons DO Primary Care Provider Source Comments In the event this information is protected by the Federal Confidentiality of Alcohol and Drug AbusePatient Records regulations: The Federal rules restrict any use of the information to criminally investigate or prosecute any alcohol or drug abuse patient.[facility] Encounter Details Date Type Department Care Team (Late st Contact Info) Description 09/24/2022 Get Medical Advice General Surgery [address] [phone] Jean-Claude Dalton MD [address] [place] [address] Surgery Social History Tobacco Use Types Packs/Day Years [...] N ot on file 08/02/2022 Data from: https://www.neighborhoodatlas.medicine.[facility]/. Last address used for calculation [address] 08/02/2022 Comments No Sex and Gender Information [...] on filedocumented in this encounter Care Teams Manager Proposal Relationship Specialty Start Date End Date Holland Lyons DO [address] [facility] [place] [place] [address] PCP - General Family Medicine 03/06/16 documented as of this encounter
--- OUTSIDE RECORDS SUMMARY | 2025-03-19 12:31 | XMS_ITS | Encounter Summary ---
Author Organization [facility] Address [address] [place] [address] Care Team Providers Care Editor In Chief Newspaper Name Role Phone Holland Lyons Primary Care Provider Source Comments In the event this information is protected by the Federal Confidentiality of Alcohol and Drug AbusePatient Records regulations: The Federal rules restrict any use of the information to criminally investigate or prosecute any alcohol or drug abuse patient.[facility] Encounter Details Date Type Department Care Team (Late st Contact Info) Description 09/24/2022 Patient Msg BMI [facility] REJ [address] [place], [place] [phone] Provider, Ccf Request an Appointment Social History Tobacco Use Types Packs/Day Years [...] N ot on file 08/02/2022 Data from: https://www.neighborhoodatlas.[facility]/. Last address used for calculation [address] [...] on filedocumented in this encounter Care Teams Editor In Chief Newspaper Relationship Specialty Start Date End Date Holland Lyons DO [address] [place] [place] [address] PCP - General Family Medicine 03/06/16 documented as of this encounter
--- OUTSIDE RECORDS SUMMARY | 2025-03-19 12:31 | XMS_ITS | Encounter Summary ---
Author Organization [facility] Address [address] [place] [address] Care Team Providers Care Store Product Demonstrator Name Role Phone Holland Lyons MD Primary Care Provider + [phone] Encounter Details Date Type Department Care Team (Late Contact Info) Description 03/06/2025 Telephone [facility] [address] [place] [address] [place] [address] Gilberto Braun, DIGITAL MARKETING EXECUTIVE [address] [facility] [place] [address] Social History Tobacco Use Types Packs/Day Years [...] PM EDT documented as of this encounter Miscellaneous Notes * Telephone Encounter - Elena Marrufo - 03/06/2025 8:41 AM EDT Patient called requesting a refill on pain med for physical therapy. She uses [facility]. documented in this encounter Plan of Treatment Upcoming Encounters Date Type Department Care Team (Late st Contact Info) Description 03/22/2025 8:45 AM EDT Office Visit [facility] [address] [place] [address] Gilberto Braun, DIGITAL MARKETING EXECUTIVE [address] [place] [address] 03/27/2025 8:30 AM EDT Treatment [facility] [address] [place] [address] [place] [address] sIis Dave, WAYBILL CLERK 03/30/2025 7:00 AM EDT Treatment [facility] [address] [place] [address] [place] [address] Isis Dave, WAYBILL CLERK 04/03/2025 8:30 AM EDT Treatment [facility] [address] [place] [address] [place] [address] Isis Dave, WAYBILL CLERK 04/05/2025 8:30 AM EDT Treatment [facility] [address] [place] [address] [place] [address] Desmond Le, WAYBILL CLERK 04/10/2025 8:30 AM EDT Treatment [facility] [address] [place] [address] [place] [address] Isis Dave, WAYBILL CLERK 04/13/2025 7:00 AM EDT Treatment [facility] [address] [place] [address] [place] [address] Isis Dave, WAYBILL CLERK 04/17/2025 10:30 AM EDT Treatment [facility] [address] [place] [address] [place] [address] Isis Dave, WAYBILL CLERK 04/20/2025 7:00 AM EDT Treatment [facility] [address] [place] [address] [place] [address] Elvira Martin, PT 04/24/2025 8:30 AM EDT Treatment [facility] [address] [address] [place] [address] Isis Dave, WAYBILL CLERK 04/27/2025 7:00 AM EDT Treatment [facility] [address] [place] [address] [place] [address] Isis Dave, WAYBILL CLERK 05/01/2025 8:30 AM EDT Treatment [facility] [address] [facility] [address] [place] [address] Isis Dave, WAYBILL CLERK 05/04/2025 7:00 AM EDT Treatment [facility] [address] [facility] [address] [place] [address] Elvira Martin, PT documented as of this encounter Visit Diagnoses Not on filedocumented in this encounter Care Teams Store Product Demonstrator Relationship Specialty Start Date End Date Holland Lyons MD PCP - General Family Medicine 08/06/23 documented as of this encounter
--- OUTSIDE RECORDS SUMMARY | 2025-03-19 12:31 | XMS_ITS | Encounter Summary ---
Author Organization [facility] Address [address] [place] [address] Care Team Providers Care Booking Police Officer Name Role Phone Holland Lyons DO Primary Care Provider Source Comments In the event this information is protected by the Federal Confidentiality of Alcohol and Drug AbusePatient Records regulations: The Federal rules restrict any use of the information to criminally investigate or prosecute any alcohol or drug abuse patient.[facility] Encounter Details Date Type Department Care Team (Late st Contact [facility]) Description 06/22/2022 Patient Msg General Surgery [address] [place] [phone] Jesús Ca MD [address] [place] [address] Request an Appointment Social History Tobacco Use [...] lower number is lower ri sk 83 11/27/2021 State Score (1-10), lower number is lower risk N ot on file 11/27/2021 Data from: https://www.neighborhoodatlas.medicine.[facility]/. Last address used for calculation [address] 11/27/2021 Comments No Sex and Gender Information Value [...] on filedocumented in this encounter Care Teams Booking Police Officer Relationship Specialty Start Date End Date Holland Lyons DO [address] [facility] [place] [address] PCP - General Family Medicine 03/06/16 documented as of this encounter
--- OUTSIDE RECORDS SUMMARY | 2025-03-19 12:31 | XMS_ITS | Encounter Summary ---
Author Organization [facility] Address [address] [place] [address] Care Team Providers Care Regulatory Compliance Manager Name Role Phone Holland Lyons MD Primary Care Provider [phone] Encounter Details Date Type Department Care Team (Latest Contact Info) Description 03/16/2025 Travel Social History Tobacco Use Types Packs/Day Years [...] Office Visit [facility] [address] [place] [phone] Gilberto Braun, RENATA [address] [place] [address] 03/27/2025 8:30 AM EDT Treatment [facility] [address] [facility] [address] [place] [address] Isis Dave PTA 03/30/2025 7:00 AM EDT Treatment [facility] [address] [place] [address] [place] [address] Isis Dave, DIRECTOR ORACLE RETAIL 04/03/2025 8:30 AM EDT Treatment [facility] [address] [place] [address] [place] [address] Corina Daveissa, DIRECTOR ORACLE RETAIL 04/05/2025 8:30 AM EDT Treatment [facility] [address] [place] [address] [place] [address] Desmond Le, DIRECTOR ORACLE RETAIL 04/10/2025 8:30 AM EDT Treatment [facility] [address] [place] [address] [place] [address] Corina Daveissa, DIRECTOR ORACLE RETAIL 04/13/2025 7:00 AM EDT Treatment [facility] [address] [address] [place] [address] Corina Daveissa, DIRECTOR ORACLE RETAIL 04/17/2025 10:30 AM EDT Treatment [facility] [address] [place] [address] Corina Daveissa, DIRECTOR ORACLE RETAIL 04/20/2025 7:00 AM EDT Treatment [facility] [address] [address] [place] [address] Elvira Martin, PT 04/24/2025 8:30 AM EDT Treatment [facility] [address] [address] [place] [address] Corina Daveissa, DIRECTOR ORACLE RETAIL 04/27/2025 7:00 AM EDT Treatment [facility] [address] [address] [place] [address] Corina Daveissa, DIRECTOR ORACLE RETAIL 05/01/2025 8:30 AM EDT Treatment [facility] [address] [place] [address] Corina Daveissa, DIRECTOR ORACLE RETAIL 05/04/2025 7:00 AM EDT Treatment [facility] [address] [place] [address] Elvira Martin, PT documented as of this encounter Visit Diagnoses Not on filedocumented in this encounter Care Teams Regulatory Compliance Manager Relationship Specialty Start Date End Date Holland Lyons MD PCP - General Family Medicine 08/06/23 documented as of this encounter
--- OUTSIDE RECORDS SUMMARY | 2025-03-19 12:31 | XMS_ITS | Encounter Summary ---
Author Organization [facility] Address [address] [place] [address] Care Team Providers Care Material Expediter Name Role Phone Holland Lyons DO Primary Care Provider Source Comments In the event this information is protected by the Federal Confidentiality of Alcohol and Drug AbusePatient Records regulations: The Federal rules restrict any use of the information to criminally investigate or prosecute any alcohol or drug abuse patient.[facility] Encounter Details Date Type Department Care Team (Late st Contact Info) Description 09/15/2022 Get Medical Advice General Surgery [address] [place] [phone] Jesús Ca MD [address] [place] [address] Hernia Repair and Medication Social History Tobacco Use Types Packs/Day Years [...] N ot on file 08/02/2022 Data from: https://www.neighborhoodatlas.medicine.[facility]/. Last address used for calculation [address] [...] on filedocumented in this encounter Care Teams Material Expediter Relationship Specialty Start Date End Date Holland Lyons DO [address] [facility] [place] [address] PCP - General Family Medicine 03/06/16 documented as of this encounter
--- OUTSIDE RECORDS SUMMARY | 2025-03-19 12:31 | XMS_ITS | Encounter Summary ---
Author Organization [facility] Address [address] [place] [address] Care Team Providers Care Automobile Mechanic Helper Name Role Phone Holland Lyons MD Primary Care Provider [phone] Encounter Details Date Type Department Care Team (Late st Contact Info) Description 03/13/2025 Bamboo flowsheet [facility] [address] [facility] [address] [place] [phone] Isis Dave PTA Social History Tobacco Use Types Packs/Day Years [...] 03/22/2025 8:45 AM EDT Office Visit [facility] [address] [place] [address] Gilberto Braun, RENATA [address] [place], [place] [phone] 03/27/2025 8:30 AM EDT Treatment [facility] [address] [facility] [address] [place] [address] Isis Dave, COLLATERAL SPECIALIST 03/30/2025 7:00 AM EDT Treatment [facility] [address] [place] [address] [place] [address] Isis Dave, COLLATERAL SPECIALIST 04/03/2025 8:30 AM EDT Treatment [facility] [address] [address] [place] [address] Isis Dave, COLLATERAL SPECIALIST 04/05/2025 8:30 AM EDT Treatment [facility] [address] [address] [place] [address] Desmond Le, COLLATERAL SPECIALIST 04/10/2025 8:30 AM EDT Treatment [facility] [address] [place] [address] Isis Dave, COLLATERAL SPECIALIST 04/13/2025 7:00 AM EDT Treatment [facility] [address] [address] [place] [address] Isis Dave, COLLATERAL SPECIALIST 04/17/2025 10:30 AM EDT Treatment [facility] [address] [place] [address] Isis Dave, COLLATERAL SPECIALIST 04/20/2025 7:00 AM EDT Treatment [facility] [address] [address] [place] [address] Elvira Martin, PT 04/24/2025 8:30 AM EDT Treatment [facility] [address] [place] [address] Isis Dave, COLLATERAL SPECIALIST 04/27/2025 7:00 AM EDT Treatment [facility] [address] [address] [place] [address] Isis Dave, COLLATERAL SPECIALIST 05/01/2025 8:30 AM EDT Treatment [facility] [address] [address] [place] [address] RanjitIsis reese, CARA 05/04/2025 7:00 AM EDT Treatment [facility] [address] [place] [address] [place] [address] Elvira Martin, MAKAYLA documented as of this encounter Visit Diagnoses Not on filedocumented in this encounter Care Teams Automobile Mechanic Helper Relationship Specialty Start Date End Date Holland Lyons MD PCP - General Family Medicine 08/06/23 documented as of this encounter
--- OUTSIDE RECORDS SUMMARY | 2025-03-19 12:31 | XMS_ITS | Encounter Summary ---
Author Organization [facility] Address [address] [place] [address] Care Team Providers Care Machine Plaster Mixer Name Role Phone Holland Lyons Primary Care Provider Source Comments In the event this information is protected by the Federal Confidentiality of Alcohol and Drug AbusePatient Records regulations: The Federal rules restrict any use of the information to criminally investigate or prosecute any alcohol or drug abuse patient.[facility] Encounter Details Date Type Department Care Team (Late st Contact Info) Description 11/23/2022 Patient Msg BMI [facility] REJ [address] [place], [place] [phone] Provider, Ccf Nutrition Summary Social History Tobacco [...] (1-100), lower number is lower ri sk 93 11/23/2022 State Score (1-10), lower number is lower risk 9 11/23/2022 Data from: https://www.neighborhoodatlas.[facility]/. Last address used for calculation [address] 11/23/2022 Comments No Sex and Gender Information Value [...] on filedocumented in this encounter Care Teams Machine Plaster Mixer Relationship Specialty Start Date End Date Holland Lyons DO [address] [facility] [place] [address] PCP - General Family Medicine 03/06/16 documented as of this encounter
--- OUTSIDE RECORDS SUMMARY | 2025-03-19 12:31 | XMS_ITS | Clinical Summary ---
Author Organization [facility] Healthcare Address [address] [place] [address] Care Team Providers Care Ward Helper Name Role Phone Holland Lyons MD Primary Care Provider [phone] Allergies Active Allergy Reactions Criticality Noted Date Comments Cephalexin Hives,Other High 09/18/2016 Skin Peeling ; has received multiple courses of Piperacillin / Tazobactam without noted reaction - inpatient Clarithromycin 06/08/2019 Codeine Anaphylaxis,Short ness of breath High 07/11/2012 Tolerated Hydromorphone 03/2022 Iodinated Contrast Media 08/29/2020 Sulfamethoxazole Rash Low 10/06/2022 Tramadol Other,Hallucinati ons Medium 01/12/2023 Abnormal Behavior / Mental Status Change / Nightmares Trimethoprim Rash Low 10/06/2022 Medications pravastatin (Pravachol) 20 MG tablet 1 (one) time each day at the same time Active levothyroxine (Synthroid, Levoxyl) 100 MCG tablet Take 112 mcg by mouth in the morning. Active Multiple Vitamin (Multi Vitamin) tablet 1 (one) time each day at the same time Active metoprolol succinate XL (Toprol-XL) 50 MG 24 hr tablet Take by mouth Do not crush or chew. Active furosemide (Lasix) 40 MG tablet Take 40 mg by mouth in the morning and 40 mg before bedtime. Active apixaban (Eliquis) 5 MG tablet Take 5 mg by mouth in the morning and 5 mg before bedtime. Active famotidine (Pepcid) 20 MG tablet Take by mouth Active aspirin 81 MG EC tablet Take 81 mg by mouth Daily Active spironolactone (Aldactone) 25 MG tablet Take 25 mg by mouth Daily Active flecainide (Tambocor) 100 MG tablet Take 100 mg by mouth in the morning and 100 mg before bedtime. Active oxyCODONE-acetam inophen (Percocet) 5-325 MG tabletIndication s:S/P arthroscopy of left shoulder Take 1 tablet by mouth every 6 (six) hours if needed for moderate pain for up to 5 days 20 tablet 02/21/20 25 Active Problems Problem Noted Date Diagnosed Date Acute pain of left shoulder 02/21/2024 Calcific tendonitis of left shoulder 02/21/2024 Encounters Date Type Department Care Team Description 03/19/2025 7:00 AM EDT Treatment [facility] [address] [facility] [address] [place] [address] Isis Dave, MACHINE BRUSH MAKER Internal derangement of left shoulder (Primary Dx); S/P arthroscopy of left shoulder 03/19/2025 Telephone [facility] [address] [place] [address] [place] [address] Jr. Leonard Ac, DO 03/19/2025 Bamboo flowsheet [facility] [address] [facility] [address] [place] [address] Isis Dave, MACHINE BRUSH MAKER 03/19/2025 Travel 03/16/2025 8:30 AM EDT Treatment [facility] [address] [facility] [address] [place] [address] Desmond Le, MACHINE BRUSH MAKER Internal derangement of left shoulder (Primary Dx); S/P arthroscopy of left shoulder 03/16/2025 Bamboo flowsheet [facility] [address] [facility] [address] [place] [address] eDsmond Le, MACHINE BRUSH MAKER 03/16/2025 Travel 03/13/2025 7:00 AM EDT Treatment [facility] [address] [facility] [address] [place] [address] Isis Dave, MACHINE BRUSH MAKER Internal derangement of left shoulder (Primary Dx); S/P arthroscopy of left shoulder 03/13/2025 Bamboo flowsheet [facility] [address] [place] [address] [place] [address] Isis Dave, MACHINE BRUSH MAKER 03/13/2025 Travel 03/06/2025 9:00 AM EDT Treatment [facility] [address] [place] [address] [place] [address] Elvira Martin, PT Internal derangement of left shoulder (Primary Dx); S/P arthroscopy of left shoulder 03/06/2025 Travel 03/06/2025 Telephone [facility] [address] [place] [address] [place] [address] Gilberto Braun, BRAKE LINING CURER 03/02/2025 9:00 AM EDT Treatment [facility] [address] [place] [address] [place] [address] Elvira Martin, PT Internal derangement of left shoulder (Primary Dx); S/P arthroscopy of left shoulder 03/02/2025 Bamboo flowsheet [facility] [address] [place] [address] [place] [address] Elvira Martin, PT 03/02/2025 Travel 02/28/2025 11:00 AM EDT Treatment [facility] [address] [place] [address] [place] [address] Desmond Le, MACHINE BRUSH MAKER Internal derangement of left shoulder (Primary Dx); S/P arthroscopy of left shoulder 02/28/2025 Bamboo flowsheet [facility] [address] [place] [address] [place] [address] Desmond Le, MACHINE BRUSH MAKER 02/28/2025 Travel 02/23/2025 7:30 AM EDT Treatment [facility] [address] [place] [address] [place] [address] Isis Dave, MACHINE BRUSH MAKER Internal derangement of left shoulder (Primary Dx); S/P arthroscopy of left shoulder; Generalized abdominal pain 02/23/2025 Bamboo flowsheet [facility] [address] [place] [address] [place] [address] Tenzin, Isis, MACHINE BRUSH MAKER 02/23/2025 Travel 02/21/2025 9:00 AM EDT Treatment [facility] [address] [place] [address] [place] [address] Elvira Martin, PT Internal derangement of left shoulder (Primary Dx); S/P arthroscopy of left shoulder 02/21/2025 Bamboo flowsheet [facility] [address] [place] [address] [place] [address] Elvira Martin, PT 02/21/2025 Travel 02/19/2025 9:00 AM EDT Office Visit [facility] [address] [place] [address] Gilberto Braun, BRAKE LINING CURER S/P arthroscopy of left shoulder (Primary Dx) 02/19/2025 Bamboo flowsheet [facility] [address] [place] [address] Gilberto Braun, BRAKE LINING CURER 02/19/2025 Travel 02/15/2025 1:30 PM EDT Treatment [facility] [address] [facility] [address] [place] [address] Elvira Martin, PT Internal derangement of left shoulder (Primary Dx); S/P arthroscopy of left shoulder 02/15/2025 Travel 02/15/2025 Telephone [facility] [address] [place] [address] Gilberto Braun, BRAKE LINING CURER refill for Percocet 02/12/2025 9:00 AM EDT Treatment [facility] [address] [facility] [address] [place] [address] Isis Dave, MACHINE BRUSH MAKER Internal derangement of left shoulder (Primary Dx); S/P arthroscopy of left shoulder 02/12/2025 Bamboo flowsheet [facility] [address] [place] [address] [place] [address] Niakalpana Isis, MACHINE BRUSH MAKER 02/12/2025 Travel 02/09/2025 8:00 AM EDT Treatment [facility] [address] [place] [address] [place] [address] Jerrell Humphrey, MACHINE BRUSH MAKER Internal derangement of left shoulder (Primary Dx); S/P arthroscopy of left shoulder 02/09/2025 Bamboo flowsheet [facility] [address] [place] [address] [place] [address] Jerrell Humphrey, MACHINE BRUSH MAKER 02/09/2025 Travel 02/07/2025 9:00 AM EDT Treatment [facility] [address] [place] [address] [place] [address] Desmond Le, MACHINE BRUSH MAKER S/P arthroscopy of left shoulder (Primary Dx); Internal derangement of left shoulder 02/07/2025 Bamboo flowsheet [facility] [address] [place] [address] [place] [address] Desmond Le, MACHINE BRUSH MAKER 02/07/2025 Travel 02/05/2025 9:00 AM EDT Treatment [facility] [address] [place] [address] [place] [address] Desmond Le, MACHINE BRUSH MAKER S/P arthroscopy of left shoulder (Primary Dx); Internal derangement of left shoulder 02/05/2025 Bamboo flowsheet [facility] [address] [place] [address] [place] [address] Desmond Le, MACHINE BRUSH MAKER 02/05/2025 Travel 02/01/2025 9:00 AM EDT Evaluation [facility] [address] [place] [address] [place] [address] Elvira Martin, PT Internal derangement of left shoulder (Primary Dx); S/P arthroscopy of left shoulder 02/01/2025 Refill [facility] [address] [place] [address] [place] [address] Jr. Leonard Ac, DO S/P arthroscopy of left shoulder 02/01/2025 Plan of Care Documentation [facility] [address] [place] [address] [place] [address] 02/01/2025 Bamboo flowsheet [facility] [address] [place] [address] [place] [address] Haim Martinmantha, PT 02/01/2025 Travel 01/22/2025 9:30 AM EDT Office Visit [facility] [address] [place] [address] Gilberto Braun, BRAKE LINING CURER S/P arthroscopy of left shoulder (Primary Dx) 01/22/2025 Bamboo flowsheet [facility] [address] [place] [address] Gilberto Braun, BRAKE LINING CURER 01/22/2025 Travel 01/12/2025 Telephone [facility] [address] [facility] [address] [place] [address] Jr. Leonard Ac, DO 01/03/2025 Refill [facility] [address] [facility] [place] [address] Gilberto Braun, BRAKE LINING CURER Post-op pain (Primary Dx) 01/01/2025 11:00 AM EDT Office Visit [facility] [address] [place] [address] Gilberto Braun, BRAKE LINING CURER Pre-op exam (Primary Dx) 01/01/2025 Bamboo flowsheet [facility] [address] [place] [address] Gilberto Braun, BRAKE LINING CURER 01/01/2025 Travel 12/27/2024 Telephone [facility] [address] [address] [place] [address] Mariana Palomo MA from Last 3 Months Family History Medical History Relation Name Comments Diabetes Father Heart disease Father Hypertension Father Diabetes Mother Heart disease Mother Hypertension Mother Relation Name Status Comments Father Mother Social History Tobacco Use Types Packs/Day Years [...] Orientation Asexual 02/18/2023 7: 51 PM EDT Last Filed Vital Signs Vital Sign Reading Time Taken Comments Blood Pressure - - Pulse - - Temperature - - Respiratory Rate - - Oxygen Saturation - - Inhaled Oxygen Concentration - - Weight 63.5 kg (140 lb) 12/04/2024 10:02 AM EDT Height 160 cm (5' 3 ) 12/04/2024 10:02 AM EDT Body Mass Index 24.8 12/04/2024 10:02 AM EDT Plan of Treatment Upcoming Encounters Date Type Department Care Team (Late st Contact Info) Description 03/22/2025 8:45 AM EDT Office Visit [facility] [address] [place] [address] Gilberto Braun, BRAKE LINING CURER [address] [place] [address] 03/27/2025 8:30 AM EDT Treatment [facility] [address] [facility] [address] [place] [address] Isis Dave, MACHINE BRUSH MAKER 03/30/2025 7:00 AM EDT Treatment [facility] [address] [facility] [address] [place] [address] Isis Dave, MACHINE BRUSH MAKER 04/03/2025 8:30 AM EDT Treatment [facility] [address] [facility] [address] [place] [address] Isis Dave, MACHINE BRUSH MAKER 04/05/2025 8:30 AM EDT Treatment [facility] [address] [place] [address] [place] [address] Desmond Le, MACHINE BRUSH MAKER 04/10/2025 8:30 AM EDT Treatment [facility] [address] [place] [address] [place] [address] Isis Dave, MACHINE BRUSH MAKER 04/13/2025 7:00 AM EDT Treatment [facility] [address] [place] [address] [place] [address] Isis Dave, MACHINE BRUSH MAKER 04/17/2025 10:30 AM EDT Treatment [facility] [address] [place] [address] [place] [address] Isis Dave, MACHINE BRUSH MAKER 04/20/2025 7:00 AM EDT Treatment [facility] [address] [place] [address] [place] [address] Elvira Martin, PT 04/24/2025 8:30 AM EDT Treatment [facility] [address] [place] [address] [place] [address] Isis Dave, MACHINE BRUSH MAKER 04/27/2025 7:00 AM EDT Treatment [facility] [address] [place] [address] [place] [address] Isis Dave, MACHINE BRUSH MAKER 05/01/2025 8:30 AM EDT Treatment [facility] [address] [place] [address] [place] [address] Isis Dave, MACHINE BRUSH MAKER 05/04/2025 7:00 AM EDT Treatment [facility] [address] [place] [address] [place] [address] Elvira Martin, PT Health Maintenance Due Date Last Done Comments CT Colonography 1966 Colonoscopy 1966 Colorectal Cancer Screening 1966 FIT-DNA 1966 FIT 1966 FOBT 1966 Sigmoidoscopy 1966 Pap Smear 1987 Cervical Cancer Screening 1996 HPV/Cotest 1996 Mammogram 11/10/2023 11/09/2022 Influenza Vaccine (#1) 2025 , 04/13/2022, 06/03/2021, Additional history exists Insurance MEDICAID [place] [employer] MEDICARE ADVANTAGE [facility] Care Teams Ward Helper Relationship Specialty Start Date End Date Holland Lyons MD PCP - General Family Medicine 08/06/23
--- OUTSIDE RECORDS SUMMARY | 2025-03-19 12:31 | XMS_ITS | Clinical Summary ---
Author Organization [facility] Address [address] [place], [place] [id number] Care Team Providers Care Risk Control Representative Name Role Phone KristinaHolland cutler Primary Care Provider Allergies Active Allergy Reactions Criticality Noted Date Comments Codeine Anaphylaxis High 03/17/2016 Tolerated hydromorphone 03/2022 Cephalexin Hives,Other: See Comments High 09/18/2016 Peeling of skin. Has received multiple courses of piperacillin/tazobactam without noted reaction inpatient. Tramadol Mental Status Change Medium 01/12/2023 Hallucinations and nightmares Medications aspirin 81 mg chewable tablet Aspirin (Children's Aspirin) 81 mg Tablet,Chewa ble Active 81 MG PO Daily 90 90 September 18, 2022 12:00am 3 Active pravastatin (PRAVACHOL) 20 mg tablet 3 Active multivit-min/iron/ folic acid/K (BARIATRIC MULTIVITAMINS ORAL) Active levothyroxine (SYNTHROID) 112 mcg tablet Take 1 tablet by mouth daily at bedtime. 30 tablet 3 Active acetaminophen (TYLENOL) 500 mg tablet Take 2 tablets by mouth every 6 hours as needed for pain. 3 Active docusate sodium (COLACE) 100 mg capsule Take 1 capsule by mouth two times a day as needed for constipation . 3 Active Active Problems Problem Noted Date Diagnosed Date S/P debridement 06/30/2023 Chronic abdominal wound infection, sequela 06/29 Abdominal wall fluid collections 05/03/2023 S/P repair of ventral hernia 12/31/2022 Assessment & Plan (01/01/2023 10:06 AM EDT): Assessment: POD 2 s/p mesh excision, bilateral TAR and ventral hernia repair with mesh placement with Dr. Dalton. RALPH. Plan: - Advance to GIS diet - Continue bowel regimen - PRN antiemetics - Keep hager catheter today - DVT ppx - continue SQH q8h - D/C mIVF - Wean o2 as able - Daily labs while in house - replete lytes PRN - PT/OT consult - Dispo: RNF Assessment & Plan (12/31/2022 10:05 AM EDT): Assessment: POD 1 s/p mesh excision, bilateral TAR and ventral hernia repair with mesh placement with Dr. Dalton. BENITO. Plan: - Continue CLD - Continue bowel regimen - PRN antiemetics - D/C hager catheter - DVT ppx - continue SQH q8h - Decrease mIVF - Wean o2 as able - Daily labs while in house - replete lytes PRN - PT/OT consult - Dispo: RNF Acute postoperative pain 12/31/2022 Assessment & Plan (01/01/2023 10:06 AM EDT): Assessment: Presents in NAD. Pain controlled on exam. Plan: - D/C HAT IRONER today - Gabapentin BID - ATC tylenol Assessment & Plan (12/31/2022 10:02 AM EDT): Assessment: Presents in NAD. Pain controlled on exam. Plan: - Wean dilaudid HAT IRONER given softer BP - Gabapentin BID - ATC tylenol SVT (supraventricular tachycardia) 12/17/2022 Assessment & Plan (06/15/2023 11:41 AM EST): Assessment: Has holter monitor on currently, is to come off on 06/28. Follows cardiology, Dr. Donaldson in [place]. Reports lightheadedness, no syncope, CP, SOB. Assessment & Plan (01/01/2023 10:05 AM EDT): Assessment: HR stable 60-70 BPM. Plan: - Continue metop - hold parameters in place Assessment & Plan (12/31/2022 10:00 AM EDT): Assessment: HR stable in 60's. 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 Denies stents. Assessment & Plan (01/01/2023 10:04 AM EDT): Assessment: [facility] 09/17/22 without blockages. Started on aspirin. LVEF 60% Plan: - Discuss with staff when to resume Asa (oozy case) Assessment & Plan (12/31/2022 9:51 AM EDT): Assessment: [facility] 09/17/22 without blockages. Started on aspirin. LVEF 60% Plan: - Discuss with staff when to resume Asa (oozy case) Assessment & Plan (12/17/2022 6:45 PM EDT): 09/17/22 Left Cardiac Heart Cath showed without blockages, started ASA No stents Noted Stress 2017 without convincing ischemia LEVF 60% Former smoker 12/16/2022 Assessment & Plan (01/01/2023 10:04 AM EDT): Assessment: Former smoker 15 years 1/2 PPD. Quit 25 years ago. Plan: - Encourage smoking cessation Assessment & Plan (12/31/2022 9:53 AM EDT): Assessment: Former smoker 15 years 1/2 PPD. Quit 25 years ago. Plan: - Encourage smoking cessation Assessment & Plan (12/16/2022 6:00 AM EDT): Patient reports Former smoker 15 yrs 1/2 PPD Quit 25 years ago Hyperlipidemia 12/16/2022 Assessment & Plan (06/15/2023 11:07 AM EST): Assessment: Complaint on statin therapy. Encouraged lifestyle modifications. Assessment & Plan (01/01/2023 10:04 AM EDT): Plan: - Continue home pravastatin Assessment & Plan (12/31/2022 9:53 AM EDT): Plan: - Continue home pravastatin Assessment & Plan (12/16/2022 6:04 AM EDT): Managed with atorvastatin (LIPITOR) Followed by PCP Gastroesophageal reflux disease without esophagi tis 12/16/2022 Assessment & Plan (06/15/2023 11:17 AM EST): Assessment: Controlled on rx. Advised avoidance of triggers. Following with PCP. 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 Follows with PCP. Last 3 Encounter BP Readings: Date: BP: 05/31/2023 127/74 05/13/2023 113/71 05/03/2023 132/78 Assessment & Plan (01/01/2023 10:04 AM EDT): Assessment: SBP in 90-100. On metoprolol at home - stated she only takes 12.5 mg . Plan: - Continue metoprolol - hold for SBP < 100 and HR < 60 Assessment & Plan (12/31/2022 9:57 AM EDT): Assessment: SBP in 90's this morning. On metoprolol at home. Plan: - Continue metoprolol - hold for SBP < 100 and HR < 60 Assessment & Plan (12/16/2022 6:11 AM EDT): Managed with metoprolol succinate XL (TOPROL-XL) spironolactone (ALDACTONE) and amLODIPine (NORVASC) BP this visit Patient reports History of coronary vasospasm 12/16/2022 Assessment & Plan (01/01/2023 10:05 AM EDT): Assessment: On pravastatin, metoprolol and ASA Plan: - Continue metoprolol - Continue pravastatin - Discuss with staff when to resume ASA Assessment & Plan (12/31/2022 9:59 AM EDT): Assessment: On pravastatin, metoprolol and ASA Plan: - Continue metoprolol - Continue pravastatin - Discuss with staff when to resume ASA Assessment & Plan (12/16/2022 10:30 AM EDT): C performed 09/17/22 started on medical treatment Metoprolol, Amlodipine, Atorvastin and ASA Recurrent incisional hernia 09/21/2022 Gastric leak 03/03/2022 Gastric perforation 12/13/2021 Assessment & Plan (12/15/2021 9:44 AM EDT): Assessment: Underwent lap sleeve gastrectomy in October 2020 complicated by chronic leak managed with drains and most recently endoscopic ablation and suturing. Now transfer from OSH for perforation. PLAN: - Broad spectrum abx with meropenem, diflucan - Blood cultures x2 pending - Neg x 2 days - general surgery following, rec non-operative management for now Assessment & Plan (12/14/2021 4:39 AM EDT): Assessment: Underwent lap sleeve gastrectomy in October 2020 complicated by chronic leak managed with drains and most recently endoscopic ablation and suturing. Now transfer from OSH for perforation. PLAN: - Broad spectrum abx with meropenem, flagyl, diflucan - Blood cultures x2 pending - general surgery following, rec non-operative management for now Assessment & Plan (12/13/2021 3:43 AM EDT): Assessment: Underwent lap sleeve gastrectomy in October 2020 complicated by chronic leak managed with drains and most recently endoscopic ablation and suturing. Now transfer from OSH for perforation. PLAN: - Broad spectrum abx with meropenem, flagyl, diflucan - MIVF - general surgery following, rec non-operative management for now - likely EGD in the morning On total parenteral nutrition (TPN) 12/13/2021 Assessment & Plan (12/15/2021 9:44 AM EDT): Assessment: on TPN chronically via PICC. PLAN: - Nutrition following - Continue TPN - NPO for now (was on soft diet at home) Assessment & Plan (12/14/2021 4:39 AM EDT): Assessment: on TPN chronically via PICC. PLAN: - Nutrition following - Continue TPN - NPO for now (was on soft diet at home) Assessment & Plan (12/13/2021 1:55 AM EDT): Assessment: on TPN chronically via PICC. PLAN: - Consult to nutrition for TPN Dehydration 12/13/2021 Assessment & Plan (12/15/2021 9:44 AM EDT): Assessment: Presented to ED with lightheadedness, fevers, tachycardia. Received 3L crystalloid in ED PLAN: - Volume replacement in TPN Assessment & Plan (12/14/2021 4:41 AM EDT): Assessment: Presented to ED with lightheadedness, fevers, tachycardia. Received 3L crystalloid in ED PLAN: - Volume replacement in TPN Obesity, Class I, BMI 30-34.9 12/13/2021 Assessment & Plan (12/15/2021 9:44 AM EDT): Assessment: PLAN: Mild protein-calorie malnutrition 12/13/2021 Assessment & Plan (12/15/2021 9:45 AM EDT): Assessment: Malnutrition PLAN: - Nutrition following - Continue TPN Assessment & Plan (12/14/2021 4:40 AM EDT): Assessment: Malnutrition PLAN: - Nutrition following - Continue TPN Keratoderma 04/28/2018 Pain in joint, multiple sites 08/23/2017 History of uveitis 08/23/2017 Arthritis 07/04/2017 Postoperative seroma of subc utaneous tissue after non-dermatologic procedure 02/08/2017 Abdominal wall seroma 01/27/2017 Overview (07/04/2017): Abdominal wall seroma secondary to abdominoplasty for ventral hernia S/p wound vac now with wet to dry dressing Plan: Daily dressing change Wound care consult Obesity, Class III, BMI >= 40 (morbid obesity) E 66.01 11/27/2016 Overview (07/04/2017): BMI 52.90 COPD (chronic obstructive pulmonary disease) Assessment & Plan (06/15/2023 11:25 AM EST): Assessment: Follows with pcp. Improved after bariatric surgery. Denies recent exacerbations or hospitalizations. Denies use of oxygen. Recent pulmonary testing in December. Assessment & Plan (01/01/2023 10:03 AM EDT): Assessment: Not on medications at home. Follows with PCP. On 2 L NC with Spo2 of 98% on 2 L NC Plan: - Wean o2 as able - PRN albuterol for SOB Assessment & Plan (12/31/2022 9:47 AM EDT): Assessment: Not on medications at home. Follows with PCP. On 2 L NC with stable o2 saturations this morning. Plan: - Wean o2 as able - PRN albuterol for SOB Assessment & Plan (12/16/2022 11:16 AM EDT): Patient states stable and controlled since weight loss Followed by PCP No inhalers used Assessment & Plan (02/27/2022 11:10 AM EDT): Assessment: inhaler as needed. Stable GAGE (obstructive sleep apnea) 06/23/2016 Assessment & Plan (06/15/2023 11:08 AM EST): Assessment: Complaint on device. Assessment & Plan (01/01/2023 10:03 AM EDT): Assessment: Reports that this has improved since weight loss. Plan: - F/u with PCP on discharge Assessment & Plan (12/31/2022 9:49 AM EDT): Assessment: Reports that this has improved since weight loss. Plan: - F/u with PCP on discharge Assessment & Plan (12/16/2022 11:20 AM EDT): Patient reports no longer used since weight loss and gastric surgery, over 300 pounds She has not been retested, instructed to follow up with her PCP Assessment & Plan (02/27/2022 11:11 AM EDT): Assessment: no longer has GAGE after weight loss Hypothyroid 06/23/2016 Assessment & Plan (06/15/2023 11:18 AM EST): Assessment: Compliant on levothyroxine. Denies recent dose adjustments. Following with PCP. Assessment & Plan (01/01/2023 10:03 AM EDT): Assessment: On synthroid at home. Plan: - Continue home synthroid - F/u with PCP Assessment & Plan (12/31/2022 9:49 AM EDT): Assessment: On synthroid at home. Plan: - Continue home synthroid - F/u with PCP Assessment & Plan (12/16/2022 5:45 AM EDT): Managed with levothyroxine (SYNTHROID) Followed by PCP Assessment & Plan (02/27/2022 11:12 AM EDT): Assessment: stable Assessment & Plan (12/15/2021 9:43 AM EDT): Assessment: Managed on 150mcg levothyroxine PLAN: - continue home levothyroxine Assessment & Plan (12/13/2021 4:52 AM EDT): Assessment: Managed on 150mcg levothyroxine PLAN: - continue home levothyroxine Assessment & Plan (12/13/2021 3:35 AM EDT): Assessment: Managed on 150mcg levothyroxine PLAN: - continue home levothyroxine Edema 06/23/2016 Overview (07/04/2017): EF 64% in 2016 NO cardiac history ON furosemide for b/l LE edema Plan: Monitor I and O Continue home furosemide dose BMP - monitor electrolytes and creatinine. Resolved Problems Problem Noted Date Diagnosed Date Resolved Date Acute urinary retention 01/01/2023 07/0 09/2022 Assessment & Plan (01/01/2023 10:06 AM EDT): Assessment: Developed urinary retention s/p hager removal 12/31. Requiring straight cath and subsequent hager replacement. Plan: - Flomax - Continue hager catheter today Recurrent ventral hernia 12/30/202209/2022 Assessment & Plan (01/01/2023 10:05 AM EDT): Assessment: S/p mesh excision and bilateral TAR and ventral hernia repair with mesh placement with Dr. Dalton 12/30. Plan: - Continue routine postoperative care - SCD's while in bed - BERHANE drains to bulb suction - IS 10 breaths q1h - Encourage ambulation and OOB TC for meal times Assessment & Plan (12/31/2022 10:03 AM EDT): Assessment: S/p mesh excision and bilateral TAR and ventral hernia repair with mesh placement with Dr. Dalton 12/30. Plan: - Continue routine postoperative care - SCD's while in bed - BERHANE drains to bulb suction - IS 10 breaths q1h - Encourage ambulation and OOB TC for meal times 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/23/2017 8 [place] eye 07/04/2017 07/06/2017 Overview (07/04/2017): Bilateral conjunctival redness Decreased vision, 20/200 on snellen chart Describes it as blotches on the chart Headache associated initially, improved with timolol and steroid eye drops as per patient Plan: Opthalmology consult Continue timolol eye drops for IOP control Inflammatory arthritis 07/03/201701/24 Abdominal pain 07/17/2016 01/29/2017 Abdominal wall seroma 07/09/20162016 Immunizations Immunization Administration Dates Next Due influenza (IIV3) vaccine, ag e 6 mo - 64 yr, trivalent (AFLURIA, FLULAVAL, FLUVIRIN, FLUZONE) 05/15/2016 influenza (IIV3) vaccine, tr ivalent (AFLURIA, FLULAVAL, FLUVIRIN, FLUZONE) 06/01/2015 influenza (IIV3) vaccine, tr ivalent, PF (AFLURIA, FLUARIX, FLULAVAL, FLUVIRIN, FLUZONE) 04/18/2017,06/01/2015 influenza (IIV4) vaccine, ag e 6 mo - 64 yr, quadrivalent (AFLURIA, FLULAVAL, FLUZONE) 05/04/2018 influenza (IIV4) vaccine, ag e 6 mo - 64 yr, quadrivalent, PF (AFLURIA, FLUARIX, FLULAVAL, FLUZONE) 06/03/2021,04/19/2020,04/23/2019 influenza (ccIIV4) vaccine, age 6+ mo, quadrivalent, PF (FLUCELVAX) 05/01/2018 influenza vaccine, unspecified formulation 04/21,04/04/2016 pneumococcal conjugate (PCV1 3) vaccine, 13 valent (PREVNAR 13) 05/22/2016 pneumococcal polysaccharide (PPV23) vaccine, 23 valent (PNEUMOVAX 23) 06/03/2021 pneumococcal vaccine, unspec ified formulation 05/22/2016 Family History Medical History Relation Comments Myocardial infarction Father of CO PD and dementia 79 Glaucoma Maternal Aunt Diabetes Mother of COPD Ischemic Heart Disease Mother Angioplas ty Anesthesia Problems No Family History Relation Status Comments Father Maternal Aunt Mother Social History Tobacco Use Types Packs/Day Years Used Date Smoking Tobacco: Former Cigarettes 0.5 5 1 - 04/13/1998 Smokeless Tobacco: Never Tobacco Cessation:Counseling Given: Not Answered Alcohol Use Standard Drinks/Week Comments Not Currently 0 (1 standard drink = 0.6 oz pure alcohol) none in a year as of 02/2022. Overall Financial Resource Strain (CARDIA) Answe r Date Recorded How hard is it for you to pa y for the very basics like food, housing, medical care, and heating? Not very hard 05/04/2023 PHQ-2 Answer Date Recorded PHQ-2 score 3 02/15/2018 Hunger Vital Sign Answer Date Recorded Within the past 12 months, y ou worried that your food would run out before you got the money to buy more. Never true 05/04/20 23 Within the past 12 months, t he food you bought just didn't last and you didn't have money to get more. Never true 05/04/2023 PRAPARE - Transportation Answer Date Re corded In the past 12 months, has l ack of transportation kept you from medical appointments or from getting medications? No 04/06 In the past 12 months, has l ack of transportation kept you from meetings, work, or from getting things needed for daily living? No 05/04/2023 Housing Stability Vital Sign Answer Gerson e Recorded In the last 12 months, was t here a time when you were not able to pay the mortgage or rent on time? No 05/04/2023 Number of Places Lived in the Last Year Not on f ile 05/04/2023 In the last 12 months, was t here a time when you did not have a steady place to sleep or slept in a assisted (including now)? No 05/04/2023 Area Deprivation Index Answer Date Homar rded National Score (1-100), lower number is lower ri sk 93 11/23/2022 State Score (1-10), lower number is lower risk 9 11/23/2022 Data from: https://www.neighborhoodatlas.medicine.[facility].edu/. Last address used for calculation [address] 11/23/2022 Comments No Sex and Gender Information Value Date Recorded Sex Assigned at Female 09/24/2021 6:18 PM EDT Legal Sex Female 2:46 PM EDT Gender Identity Female 09/24/2021 6:18 PM EDT Sexual Orientation Straight 09/24/2021 6: 18 PM EDT Last Filed Vital Signs Vital Sign Reading Time Taken Comments Blood Pressure 127/76 09/23/2023 11:04 AM EDT Pulse 61 09/23/2023 11:04 AM EDT Temperature 36.7 C (98.1 F) 09/23/2023 11:04 AM EDT Respiratory Rate 16 07/01/2023 1:11 PM EST Oxygen Saturation 96% 07/01/2023 1:11 PM EST Inhaled Oxygen Concentration - - Weight 61.8 kg (136 lb 4.8 oz) 09/23/2023 11:04 AM EDT Height 160 cm (5' 3 ) 09/23/2023 11:04 AM EDT Body Mass Index 24.14 09/23/2023 11:04 AM EDT Plan of Treatment Health Maintenance Due Date Last Done Comments Annual PCP Team Chronic Dise ase Visit 1984 Anxiety Screening 1984 Depression Screening 1984 Hepatitis C Screening 1984 Hepatitis B Vaccine (1 of 3 - 19+ 3-dose series) 1985 Cervical Cancer Screening 1987 CT Colonography 2011 Cologuard (FIT-DNA) 2011 Colonoscopy 2011 Colorectal Cancer Screening 2011 Fecal Occult Blood 2011 Sigmoidoscopy 2011 Lipid Screening 01/06/2023 01/06/2018 Mammogram Screening 11/10/2023 11/09/2022, Medicare Advantage Annual We llness Visit 07/05/2024 Influenza Vaccine (#1) 2025 3, 04/13/2022, 06/03/2021, Additional history exists Pneumococcal Vaccine: 50+ (3 of 3 - PCV20 or PCV21) 06/03/2026 06/03/2021, 05/22/2016, 05/22/2016 Diabetes Screening 07/01/2026 07/01/2023, 1 08/31/2022, 05/05/2023, Additional history exists DTaP,Tdap,Td Vaccine (2 - Td or Tdap) 06/16/2032 06/16/2022 HIV Screening Completed 10/07/2017 Shingrix Vaccine Completed 06/16/2022, 04/13/2022 Medical Devices Implanted Type Area Emt/Dispatcher Device Identifier Shelf Expiration Date Model / Serial / Lot Mesh Prolene Square Flat [id number] Surgical Knit Nonabsorbable Nonreactive - [id number] Implanted:Qty: 1 on 12/30/2022 at [facility] Mesh N/A: Abdomen LETHA AND LETHA 11/02/2027 PML / / [id number] Stent Zimmon 7fr 2 Pigtail Curve Purple Polyethylene 7cm 170cm Biliary - [id number] Implanted:Qty: 1 on 10/08/2021 at [facility] Q BUILDING Stent N/A: Abdomen [employer] ENDOSCOPY 02/06/2024 [id number] / / [id number] Tube Monster Secur-Hugh 18fr Silicone Gastrostomy Medication Port Radiopaque - [id number] Implanted:Qty: 1 on 03/02/2022 at [facility] Tube N/A: Abdomen IAT-Auto 11/04/2024 [id number] / / [id number] Procedures Procedure Name Priority Date/Time Associated Diagnosis Comments BASIC METABOLIC PANEL Routine 07/01/2023 6:31 AM EST LIPID PANEL, FASTING Routine 01/06/2018 10:59 AM EDT Class 3 obesity due to excess calories in adult Pure hypercholesterolemia Essential hypertension, benign Obstructive sleep apnea syndrome Morbid obesity (HCC) Congenital 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 HIV 1/2 COMBO WITH REFLEX TO DIFFERENTIATION Routine 10/07/2017 1:03 PM EDT Reactive arthritis (HCC) from Last 3 Months or Most Recently Relevant to Health Maintenance Results * (ABNORMAL) BASIC METABOLIC PNL (07/01/2023 6:31 AM EST) Glucose 91 74 - 99 mg/dL 07/01/2023 8:01 AM [facility] Comment: The [place] Diabetes Association (ADA) provides guidance for cutoff [...] Standards of Medical Care in Diabetes 2016, [place] Diabetes Association. Diabetes Care. 2016.39(Suppl 1). BUN 16 7 - 21 mg/dL 07/01/2023 8:01 AM [facility] Creatinine 0.70 0.58 - 0.96 mg/dL 07/01/2023 8:01 AM [facility] Sodium 143 136 - 144 mmol/L 07/01/2023 8:01 AM [facility] Potassium 4.3 3.7 - 5.1 mmol/L 07/01/2023 8:01 AM [facility] Chloride 106(H) 97 - 105 mmol/L 07/01/2023 8:01 AM [facility] CO2 29 22 - 30 mmol/L 07/01/2023 8:01 AM [facility] Anion Gap 8(L) 9 - 18 mmol/L 07/01/2023 8:01 AM [facility] Calcium, Total 8.6 8.5 - 10.2 mg/dL 07/01/2023 8:01 AM EST [facility] Estimated Glomerular Filtration Rate 102 >=60 mL/min/1.7 3m 07/01/2023 8:01 AM EST [facility] Comment:Estimated Glomerular Filtration Rate (eGFR) is calculated using the 2020 CKD-EPI creatinine equation. This equation utilizes serum creatinine, sex, and age as parameters. The creatinine assay has traceable calibration to isotope dilution- mass spectrometry. Refer to KDIGO guidelines for clinical interpretation. In patients with unstable renal function, e.g. those with acute kidney injury, the eGFR may not accurately reflect actual GFR. Blood BLOOD SPECIMEN / Unknown Venipuncture / Unknown 07/01/2023 6:31 AM EST 07/01/2023 6:43 AM EST us Jean-Claude Dalton MD LABORATORY Fin al Result [facility] [address] [place] [address], * (ABNORMAL) LIPID PANEL BASIC (01/06/2018 10:59 AM EDT) Cholesterol, Total 226(H) <200 mg/dL 01/06/2018 2:49 PM EDT [facility] Comment: <200 mg/dL, Desirable 200-239 mg/dL, Borderline high >239 mg/dL, High Triglyceride 211(H) <150 mg/dL 01/06/2018 2:49 PM EDT [facility] Comment: <150 mg/dL, Normal 150-199 mg/dL, Borderline high 200-499 mg/dL, High >499 mg/dL, Very high HDL Cholesterol 59 >39 mg/dL 8 2:49 PM EDT [facility] Comment: 40-59 mg/dL, Acceptable >59 mg/dL, High: Negative risk factor for coronary heart disease <40 mg/dL, Low: Positive risk factor for coronary heart disease LDL Cholesterol, Calculated 125(H) <100 mg/dL 01/06/2018 2:49 PM EDT [facility] Comment: <100 mg/dL, Optimal 100-129 mg/dL, Near optimal/above optimal 130-159 mg/dL, Borderline high 160-189 mg/dL, High >189 mg/dL, Very high Secondary prevention optimal LDL Cholesterol levels are recommended to be < 70 mg/dL Non HDL Cholesterol 167(H) <130 mg/dL 01/06/2018 2:49 PM EDT [facility] Comment: <130 mg/dL, Optimal 130-159 mg/dL, Near optimal/above optimal 160-189 mg/dL, Borderline high 190-219 mg/dL, High >219 mg/dL, Very high Secondary prevention optimal non HDL Cholesterol levels are recommended to be < 100 mg/dL Fasting Time Unknown hrs 01/06/2018 2:49 PM EDT [facility] VLDL Cholesterol 42(H) <30 mg/dL 01/07/20 18 2:49 PM EDT [facility] TC:HDL Ratio 3.83 <5.10 01/06/2018 2:49 PM EDT [facility] LDL:HDL Ratio 2.12 <2.54 01/06/2018 2:49 PM EDT [facility] Comment: Reference: 1. National Cholesterol Education Program ATP III Guideline At-A-Glance Quick Desk Reference: National Heart, Lung, and Blood [place]. National Institutes of Health. 2001: NIH Publication No. 01-3305. 2. An International Atherosclerosis Society position paper: global recommendations for the management of dyslipidemia: executive summary, Atherosclerosis. 2014: 232(2):410-413. Blood specimen (specimen) BLOOD SPECIMEN / Unknown 01/06/2018 10:59 AM EDT 01/06/2018 11:01 AM EDT us Kendra Dubois MD LABORATORY Final Resu lt [facility] [address] [place] [address] * HIV 1,2 COMBO (AG/AB) (10/07/2017 1:03 PM EDT) HIV 12 Combo (Ag/Ab) Non Reactive Non Reactive 10/08/2017 12:04 PM EDT [facility] Comment: (NOTE) HIV Information: [place] Rev. Code 3701.243(E): This information has been disclosed to you from confidential records protected from disclosure by state law. You shall make no further disclosure of this information without the specific, written, and informed release of the individual to whom it pertains, or as otherwise permitted by state law. A general authorization for the release of medical or other information is not sufficient for the purpose of the release of HIV test results or diagnoses. Blood specimen (specimen) BLOOD SPECIMEN / Unknown 10/07/2017 1:03 PM EDT 10/07/2017 1:05 PM EDT us Carlos Alberto (Fel)(Hist) Saleem LABORATORY Fin al Result [facility] [address] [place] [address] from Last 3 Months or Most Recently Relevant to Health Maintenance Insurance MEDICAID [place] [facility] [employer] MEDICARE ADVANTAGE O Advance Directives Documents on File Type Date Recorded Patient Vending Route Servicer Expl anation Advance Directive(s) 03/03/2022 5:54 PM Care Teams Risk Control Representative Relationship Specialty Start Date End Date Holland Lyons DO [address] [place] [address] PCP - General Family Medicine 03/06/16
--- OUTSIDE RECORDS SUMMARY | 2025-03-19 12:31 | XMS_ITS | Encounter Summary ---
Author Organization [facility] Address [address] [place] [address] Care Team Providers Care Channel Sales Manager Name Role Phone Holland Lyons Primary Care Provider Source Comments In the event this information is protected by the Federal Confidentiality of Alcohol and Drug AbusePatient Records regulations: The Federal rules restrict any use of the information to criminally investigate or prosecute any alcohol or drug abuse patient.[facility] Encounter Details Date Type Department Care Team (Late st Contact Info) Description 04/03/2022 Patient Msg BMI [facility] [address] [place], [place] [id number] Provider, Ccf Nutrition Summary Social History Tobacco [...] N ot on file 11/27/2021 Data from: https://www.neighborhoodatlas.[facility]/. Last address used for calculation [address] 11/27/2021 Comments No Sex and Gender Information Value Date Recorded Sex Assigned at Female 09/24/2021 6:18 PM EDT Legal Sex Female 2:46 PM EDT Gender Identity Female 09/24/2021 6:18 PM EDT Sexual Orientation Straight 09/24/2021 6: 18 PM EDT COVID-19 Exposure Response Date Recorded In the last 10 days, have yo u been in contact with someone who was confirmed or suspected to have Coronavirus/COVID-19? No / Unsure 03/31/2022 12:29 PM EDT documented as of this encounter [...] Assessment Author No 07/06/2017 3:45 PM Noris March, IFRAH * Because of a physical, mental, or [...] on filedocumented in this encounter Care Teams Channel Sales Manager Relationship Specialty Start Date End Date Holland Lyons DO [address] [place] [address] PCP - General Family Medicine 03/06/16 documented as of this encounter
--- OUTSIDE RECORDS SUMMARY | 2025-03-19 12:31 | XMS_ITS | Encounter Summary ---
Author Organization [facility] Address [address] [place] [address] Care Team Providers Care Responder Name Role Phone Holland Lyons MD Primary Care Provider [phone]- [phone] Encounter Details Date Type Department Care Team (Latest Contact Info) Description 03/13/2025 Travel Social History Tobacco Use Types Packs/Day [...] Office Visit [facility] [address] [place] [address] Gilberto Braun, RENATA [address] [place] [address] 03/27/2025 8:30 AM EDT Treatment [facility] [address] [facility] [address] [place] [address] Isis Dave PTA 03/30/2025 7:00 AM EDT Treatment [facility] [address] [place] [address] [place] [address] Isis Dave, SALES REPRESENTATIVE RAW FIBERS 04/03/2025 8:30 AM EDT Treatment [facility] [address] [place] [address] [place] [address] Corina Daveissa, SALES REPRESENTATIVE RAW F[employer]ERS 04/05/2025 8:30 AM EDT Treatment [facility] [address] [place] [address] [place] [address] Desmond Le, SALES REPRESENTATIVE RAW F[employer]ERS 04/10/2025 8:30 AM EDT Treatment [facility] [address] [place] [address] [place] [address] Corina Daveissa, SALES REPRESENTATIVE RAW FIBERS 04/13/2025 7:00 AM EDT Treatment [facility] [address] [place] [address] [place] [address] Corina Daveissa, SALES REPRESENTATIVE RAW FIBERS 04/17/2025 10:30 AM EDT Treatment [facility] [address] [place] [address] [place] [address] Corina Daveissa, SALES REPRESENTATIVE RAW FIBERS 04/20/2025 7:00 AM EDT Treatment [facility] [address] [place] [address] [place] [address] Elvira Martin, PT 04/24/2025 8:30 AM EDT Treatment [facility] [address] [place] [address] [place] [address] Corina Daveissa, SALES REPRESENTATIVE RAW FIBERS 04/27/2025 7:00 AM EDT Treatment [facility] [address] [place] [address] [place] [address] Corina Daveissa, SALES REPRESENTATIVE RAW FIBERS 05/01/2025 8:30 AM EDT Treatment [facility] [address] [place] [address] [place] [address] Corian Daveissa, SALES REPRESENTATIVE RAW FIBERS 05/04/2025 7:00 AM EDT Treatment [facility] [address] [place] [address] [place] [address] Elvira Martin, PT documented as of this encounter Visit Diagnoses Not on filedocumented in this encounter Care Teams Responder Relationship Specialty Start Date End Date Holland Lyons MD PCP - General Family Medicine 08/06/23 documented as of this encounter
--- OUTSIDE RECORDS SUMMARY | 2025-03-19 12:31 | XMS_ITS | Encounter Summary ---
Author Organization [facility] Address [address] [place] [address] Phone Care Team Providers Care Grain Unloader Machine Name Role Phone Holland Lyons DO Primary Care Provider Encounter Details Date Type Department Care Team (Late st Contact Info) Description 09/17/2022 Orders Only [facility] [address] Virtual [place] [address] Conversion, Onbase Social History Tobacco Use Types Packs/Day Years Used Date Smoking Tobacco: Never Assessed Comments Unknown Sex and Gender Information Value Date Recorded Sex Assigned at Not on file Legal Sex Female 3:46 PM EST Gender Identity Not on file Sexual Orientation Not on file documented as of this encounter Plan of Treatment Scheduled Orders Name Type Priority Associated Diagnoses Orde r Schedule OUTSIDE LAB SCAN Lab Ordered: 09/17/2022 documented as of this encounter Visit Diagnoses Not on filedocumented in this encounter Care Teams Grain Unloader Machine Relationship Specialty Start Date End Date Holland Lyons DO PCP - General 10/14/22 documented as of this encounter
--- OUTSIDE RECORDS SUMMARY | 2025-03-19 12:31 | XMS_ITS | Encounter Summary ---
Author Organization [facility] Address [address] [place] [address] Care Team Providers Care Senior Foreman Name Role Phone Holland Lyons MD Primary Care Provider [phone] Encounter Details Date Type Department Care Team (Late st Contact Info) Description 03/19/2025 Telephone [facility] [address] [facility] [address] [place] [address] Jr. Leonard Ac, DO [address] [place] [address] Social History Tobacco Use Types Packs/Day Years [...] * Telephone Encounter - Elena Marrufo - 03/19/2025 8:38 AM EDT Patient called and left vm. Patient stated she has been going to physical therapy. She stated she is still having a lot of increase in pain. PT told her to reach out to us. documented in this encounter Plan of Treatment Upcoming Encounters Date Type Department Care Team (Late st Contact Info) Description 03/22/2025 8:45 AM EDT Office Visit [facility] [address] [place] [phone] Gilberto Braun, GROCERY CLERK MARKING [address] [place] [address] 03/27/2025 8:30 AM EDT Treatment [facility] [address] [place] [address] [place] [address] Isis Dave, INFORMATION SYSTEMS TECHNICIAN 03/30/2025 7:00 AM EDT Treatment [facility] [address] [place] [address] [place] [address] Isis Dave, INFORMATION SYSTEMS TECHNICIAN 04/03/2025 8:30 AM EDT Treatment [facility] [address] [place] [address] [place] [address] Isis Dave, INFORMATION SYSTEMS TECHNICIAN 04/05/2025 8:30 AM EDT Treatment [facility] [address] [place] [address] [place] [address] Desmond Le, INFORMATION SYSTEMS TECHNICIAN 04/10/2025 8:30 AM EDT Treatment [facility] [address] [place] [address] Isis Dave, INFORMATION SYSTEMS TECHNICIAN 04/13/2025 7:00 AM EDT Treatment [facility] [address] [place] [address] Isis Dave, INFORMATION SYSTEMS TECHNICIAN 04/17/2025 10:30 AM EDT Treatment [facility] [address] [place] [address] Isis Dave, INFORMATION SYSTEMS TECHNICIAN 04/20/2025 7:00 AM EDT Treatment [facility] [address] [address] [place] [address] Elvira Martin, PT 04/24/2025 8:30 AM EDT Treatment [facility] [address] [place] [address] [place] [address] Ranjitmary annIsis, INFORMATION SYSTEMS TECHNICIAN 04/27/2025 7:00 AM EDT Treatment [facility] [address] [address] [place] [address] TenzinCorinaIsis, INFORMATION SYSTEMS TECHNICIAN 05/01/2025 8:30 AM EDT Treatment [facility] [address] [address] [place] [address] TenzinCorinaIsis, INFORMATION SYSTEMS TECHNICIAN 05/04/2025 7:00 AM EDT Treatment [facility] [address] [facility] [address] [place] [address] Elvira Martin, PT documented as of this encounter Visit Diagnoses Not on filedocumented in this encounter Care Teams Senior Foreman Relationship Specialty Start Date End Date Holland Lyons MD PCP - General Family Medicine 08/06/23 documented as of this encounter
--- OUTSIDE RECORDS SUMMARY | 2025-03-19 12:31 | XMS_ITS | Encounter Summary ---
Author Organization [facility] Address [address] [place] [address] Care Team Providers Care Energy Audit Advisor Name Role Phone Holland Lyons MD Primary Care Provider [phone] Encounter Details Date Type Department Care Team (Late st Contact Info) Description 03/16/2025 Bamboo flowsheet [facility] [address] [address] [place] [address] Desmond Le PTA Social History Tobacco Use Types Packs/Day [...] Office Visit [facility] [address] [place] [address] Gilberto Braun, RENATA [address] [place], [place] [phone] 03/27/2025 8:30 AM EDT Treatment [facility] [address] [facility] [address] [place] [address] Isis Dave, GLOBAL COMPENSATION ANALYST 03/30/2025 7:00 AM EDT Treatment [facility] [address] [address] [place] [address] Isis Dave, GLOBAL COMPENSATION ANALYST 04/03/2025 8:30 AM EDT Treatment [facility] [address] [address] [place] [address] Isis Dave, GLOBAL COMPENSATION ANALYST 04/05/2025 8:30 AM EDT Treatment [facility] [address] [address] [place] [address] Desmond Le, GLOBAL COMPENSATION ANALYST 04/10/2025 8:30 AM EDT Treatment [facility] [address] [place] [address] Isis Dave, GLOBAL COMPENSATION ANALYST 04/13/2025 7:00 AM EDT Treatment [facility] [address] [address] [place] [address] Isis Dave, GLOBAL COMPENSATION ANALYST 04/17/2025 10:30 AM EDT Treatment [facility] [address] [address] [place] [address] Isis Dave, GLOBAL COMPENSATION ANALYST 04/20/2025 7:00 AM EDT Treatment [facility] [address] [address] [place] [address] Elvira Martin, PT 04/24/2025 8:30 AM EDT Treatment [facility] [address] [address] [place] [address] Isis Dave, GLOBAL COMPENSATION ANALYST 04/27/2025 7:00 AM EDT Treatment [facility] [address] [place] [address] [place] [address] Corina Daveissa, GLOBAL COMPENSATION ANALYST 05/01/2025 8:30 AM EDT Treatment [facility] [address] [address] [place] [address] RanjitIsis reese, CARA 05/04/2025 7:00 AM EDT Treatment [facility] [address] [place] [address] [place] [address] Elvira Martin, MAKAYLA documented as of this encounter Visit Diagnoses Not on filedocumented in this encounter Care Teams Energy Audit Advisor Relationship Specialty Start Date End Date Holland Lyons MD PCP - General Family Medicine 08/06/23 documented as of this encounter
--- OUTSIDE RECORDS SUMMARY | 2025-03-19 12:31 | XMS_ITS | Encounter Summary ---
Author Organization [facility] Address [address] [place] [address] Care Team Providers Care Reed Press Feeder Name Role Phone Holland Lyons MD Primary Care Provider [phone] Encounter Details Date Type Department Care Team (Late st Contact Info) Description 03/19/2025 Bamboo flowsheet [facility] [address] [facility] [address] [place] [address] Isis Dave PTA Social History Tobacco Use [...] Office Visit [facility] [address] [place] [address] Gilberto Braun, RENATA [address] [place], [place] [phone] 03/27/2025 8:30 AM EDT Treatment [facility] [address] [facility] [address] [place] [address] Isis Dave, TECHNOLOGY RISK INTERN 03/30/2025 7:00 AM EDT Treatment [facility] [address] [address] [place] [address] Isis Dave, TECHNOLOGY RISK INTERN 04/03/2025 8:30 AM EDT Treatment [facility] [address] [address] [place] [address] Isis Dave, TECHNOLOGY RISK INTERN 04/05/2025 8:30 AM EDT Treatment [facility] [address] [place] [address] Desmond Le, TECHNOLOGY RISK INTERN 04/10/2025 8:30 AM EDT Treatment [facility] [address] [place] [address] Isis Dave, TECHNOLOGY RISK INTERN 04/13/2025 7:00 AM EDT Treatment [facility] [address] [address] [place] [address] Isis Dave, TECHNOLOGY RISK INTERN 04/17/2025 10:30 AM EDT Treatment [facility] [address] [address] [place] [address] Isis Dave, TECHNOLOGY RISK INTERN 04/20/2025 7:00 AM EDT Treatment [facility] [address] [address] [place] [address] Elvira Martin, PT 04/24/2025 8:30 AM EDT Treatment [facility] [address] [address] [place] [address] Isis Dave, TECHNOLOGY RISK INTERN 04/27/2025 7:00 AM EDT Treatment [facility] [address] [place] [address] Isis Dave, TECHNOLOGY RISK INTERN 05/01/2025 8:30 AM EDT Treatment [facility] [address] [address] [place] [address] RanjitIsis reese, CARA 05/04/2025 7:00 AM EDT Treatment [facility] [address] [place] [address] [place] [address] Elvira Martin, MAKAYLA documented as of this encounter Visit Diagnoses Not on filedocumented in this encounter Care Teams Reed Press Feeder Relationship Specialty Start Date End Date Holland Lyons MD PCP - General Family Medicine 08/06/23 documented as of this encounter
--- OUTSIDE RECORDS SUMMARY | 2025-03-19 12:31 | XMS_ITS | Encounter Summary ---
Author Organization [facility] Address [address] [place] [address] Care Team Providers Care Bull Gang Supervisor Name Role Phone Holland Lyons MD Primary Care Provider [phone] Encounter Details Date Type Department Care Team (Latest Contact Info) Description 03/19/2025 Travel Social History Tobacco Use Types Packs/Day [...] Office Visit [facility] [address] [place] [address] Gilberto Braun, RENATA [address] [place] [address] 03/27/2025 8:30 AM EDT Treatment [facility] [address] [facility] [address] [place] [address] Isis Dave PTA 03/30/2025 7:00 AM EDT Treatment [facility] [address] [place] [address] Isis Dave, CATTLE STICKER 04/03/2025 8:30 AM EDT Treatment [facility] [address] [place] [address] Corina Daveissa, CATTLE STICKER 04/05/2025 8:30 AM EDT Treatment [facility] [address] [place] [address] [place] [address] Desmond Le, CATTLE STICKER 04/10/2025 8:30 AM EDT Treatment [facility] [address] [place] [address] [place] [address] Corina Daveissa, CATTLE STICKER 04/13/2025 7:00 AM EDT Treatment [facility] [address] [address] [place] [address] Corina Daveissa, CATTLE STICKER 04/17/2025 10:30 AM EDT Treatment [facility] [address] [address] [place] [address] Corina Daveissa, CATTLE STICKER 04/20/2025 7:00 AM EDT Treatment [facility] [address] [address] [place] [address] Elvira Martin, PT 04/24/2025 8:30 AM EDT Treatment [facility] [address] [place] [address] [place] [address] Corina Daveissa, CATTLE STICKER 04/27/2025 7:00 AM EDT Treatment [facility] [address] [address] [place] [address] Corina Daveissa, CATTLE STICKER 05/01/2025 8:30 AM EDT Treatment [facility] [address] [place] [address] Corina Daveissa, CATTLE STICKER 05/04/2025 7:00 AM EDT Treatment [facility] [address] [place] [address] Elvira Martin, PT documented as of this encounter Visit Diagnoses Not on filedocumented in this encounter Care Teams Bull Gang Supervisor Relationship Specialty Start Date End Date Holland Lyons MD PCP - General Family Medicine 08/06/23 documented as of this encounter
--- OUTSIDE RECORDS SUMMARY | 2025-03-19 12:31 | XMS_ITS | Encounter Summary ---
Author Organization [facility] Address [address] [place] [address] Phone Care Team Providers Care Goodwill Representative Name Role Phone Holland Lyons DO Primary Care Provider Encounter Details Date Type Department Care Team (Late st Contact Info) Description 10/06/[address] [facility] [address] [place] [address] Conversion, Onbase Social History Tobacco Use Types [...] r Schedule OUTSIDE LAB SCAN Lab Ordered: 10/06/2022 documented as of this encounter Visit Diagnoses Not on filedocumented in this encounter Care Teams Goodwill Representative Relationship Specialty Start Date End Date Holland Lyons DO PCP - General 10/14/22 documented as of this encounter
--- OUTSIDE RECORDS SUMMARY | 2025-03-19 12:31 | XMS_ITS | Encounter Summary ---
Author Organization [facility] Address [address] [place] [address] Phone Care Team Providers Care Clinical Technologist Name Role Phone Holland Lyons DO Primary Care Provider Encounter Details Date Type Department Care Team (Late st Contact Info) Description 11/16/2022 Orders Only [facility] [address] [place] [address] Conversion, Onbase Social History Tobacco Use Types [...] r Schedule OUTSIDE LAB SCAN Lab Ordered: 11/16/2022 documented as of this encounter Visit Diagnoses Not on filedocumented in this encounter Care Teams Clinical Technologist Relationship Specialty Start Date End Date Holalnd Lyons DO PCP - General 10/14/22 documented as of this encounter
--- OUTSIDE RECORDS SUMMARY | 2025-03-19 12:31 | XMS_ITS | Encounter Summary ---
Author Organization [facility] Address [address] [place] [address] Care Team Providers Care Senior Lead Software Engineer Name Role Phone Holland Lyons DO Primary Care Provider Source Comments In the event this information is protected by the Federal Confidentiality of Alcohol and Drug AbusePatient Records regulations: The Federal rules restrict any use of the information to criminally investigate or prosecute any alcohol or drug abuse patient.[facility] Encounter Details Date Type Department Care Team (Late st Contact Info) Description 05/06/2022 Get Medical Advice General Surgery [address] [place] [phone] Jesús Ca MD [address] [place] [phone] Nauseous, still losing weight. Social History Tobacco Use Types Packs/Day Years [...] N ot on file 11/27/2021 Data from: https://www.neighborhoodatlas.medicine.[facility]/. Last address used for calculation [address] [...] filedocumented in this encounter Care Teams Senior Lead Software Engineer Relationship Specialty Start Date End Date Holland Lyons DO [address] [facility] [place] [address] PCP - General Family Medicine 03/06/16 documented as of this encounter
--- OUTSIDE RECORDS SUMMARY | 2025-03-19 12:31 | XMS_ITS | Clinical Summary ---
Author Organization [facility] Address [address] [place] [address] Phone Care Team Providers Care Power Systems Engineer Name Role Phone Holland Lyons Primary Care Provider Social History Tobacco Use Types Packs/Day Years Used Date Smoking Tobacco: Never Assessed Comments Unknown Sex and Gender Information Value Date Recorded Sex Assigned at Not on file Legal Sex Female 3:46 PM EST Gender Identity Not on file Sexual Orientation Not on file Last Filed Vital Signs Vital Sign Reading Time Taken Comments Blood Pressure 118/80 11/25/2022 1:09 PM EDT Pulse 62 11/25/2022 1:09 PM EDT Temperature - - Respiratory Rate - - Oxygen Saturation - - Inhaled Oxygen Concentration - - Weight 63.5 kg (140 lb) 11/25/2022 1:09 PM EDT Height 160 cm (5' 3 ) 11/25/2022 1:09 PM EDT Body Mass Index 24.8 11/25/2022 1:09 PM EDT Plan of Treatment Health Maintenance Due Date Last Done Comments CT Colonography 1966 Colonoscopy 1966 Colorectal Cancer Screening 1966 FIT-DNA (Cologuard) 1966 FIT 1966 HIV Screening 1966 Lipid Panel 1966 Sigmoidoscopy 1966 Welcome to Medicare Visit 1966 MMR Vaccines (1 of 1 - Stand bruno series) 1967 Hepatitis C Screening 1984 Hepatitis B Vaccines (1 of 3 - 19+ 3-dose series) 1985 Pneumococcal Vaccine (1 of 2 - PCV) 1985 Cervical Cancer Screening 1987 HPV/Cotest 1987 Pap Smear 1987 DTaP/Tdap/Td Vaccines (1 - Tdap) 1988 Mammogram 2006 Zoster Vaccines (1 of 2) 2016 COVID-19 Vaccine (1 - 2023-2 5 season) 2025 Influenza Vaccine (#1) 2025 HIB Vaccines Aged Out No longer eligi ble based on patient's age to complete this topic HPV Vaccines Aged Out No longer eligi ble based on patient's age to complete this topic Hepatitis A Vaccines Aged Out No long er eligible based on patient's age to complete this topic IPV Vaccines Aged Out No longer eligi ble based on patient's age to complete this topic Meningococcal Vaccine Aged Out No woo [place] eligible based on patient's age to complete this topic Rotavirus Vaccines Aged Out No longer eligible based on patient's age to complete this topic Insurance [employer] [facility] DUAL [facility]VANT[facility] FOR LIFE [facility] DUAL [facility] Care Teams Power Systems Engineer Relationship Specialty Start Date End Date Holland Lyons DO PCP - General 10/14/22
--- OUTSIDE RECORDS SUMMARY | 2025-03-19 12:31 | XMS_ITS | Encounter Summary ---
Author Organization [facility] Address [address] [place] [address] Care Team Providers Care Clutch Specialist Name Role Phone Holland Lyons MD Primary Care Provider [phone] Encounter Details Date Type Department Care Team (Latest Contact Info) Description 03/06/2025 Travel Social History Tobacco Use Types Packs/Day [...] Office Visit [facility] [address] [place] [phone] Gilberto Braun, RENATA [address] [place] [address] 03/27/2025 8:30 AM EDT Treatment [facility] [address] [facility] [address] [place] [address] Isis Dave PTA 03/30/2025 7:00 AM EDT Treatment [facility] [address] [place] [address] [place] [address] [phone] Isis Dave, MANAGER STATISTICAL 04/03/2025 8:30 AM EDT Treatment [facility] [address] [place] [address] [place] [address] Corina Daveissa, MANAGER STATISTICAL 04/05/2025 8:30 AM EDT Treatment [facility] [address] [place] [address] Desmond Le, MANAGER STATISTICAL 04/10/2025 8:30 AM EDT Treatment [facility] [address] [address] [place] [address] Corina Daveissa, MANAGER STATISTICAL 04/13/2025 7:00 AM EDT Treatment [facility] [address] [place] [address] Corina Daveissa, MANAGER STATISTICAL 04/17/2025 10:30 AM EDT Treatment [facility] [address] [address] [place] [address] Corina Daveissa, MANAGER STATISTICAL 04/20/2025 7:00 AM EDT Treatment [facility] [address] [address] [place] [address] Elvira Martin, PT 04/24/2025 8:30 AM EDT Treatment [facility] [address] [address] [place] [address] Corina Daveissa, MANAGER STATISTICAL 04/27/2025 7:00 AM EDT Treatment [facility] [address] [address] [place] [address] Corina Daveissa, MANAGER STATISTICAL 05/01/2025 8:30 AM EDT Treatment [facility] [address] [address] [place] [address] Corina Daveissa, MANAGER STATISTICAL 05/04/2025 7:00 AM EDT Treatment [facility] [address] [place] [address] Elvira Martin, PT documented as of this encounter Visit Diagnoses Not on filedocumented in this encounter Care Teams Clutch Specialist Relationship Specialty Start Date End Date Holland Lyons MD PCP - General Family Medicine 08/06/23 documented as of this encounter
--- OUTSIDE RECORDS SUMMARY | 2025-03-19 12:31 | XMS_ITS | Encounter Summary ---
Author Organization [facility] Address [address] [place] [address] Care Team Providers Care Ice Crusher Name Role Phone Holland Lyons DO Primary Care Provider Source Comments In the event this information is protected by the Federal Confidentiality of Alcohol and Drug AbusePatient Records regulations: The Federal rules restrict any use of the information to criminally investigate or prosecute any alcohol or drug abuse patient.[facility] Encounter Details Date Type Department Care Team (Late st Contact Info) Description 02/15/2018 Get Medical Advice Endocrinology [address] [phone] Kendra Dubois MD [address] [place] [address] RE: Visit Follow Up Question Social History Tobacco Use Types Packs/Day Years Used Date Smoking Tobacco: Former Cigarettes 0.5 5 1 - 04/13/1998 Smokeless Tobacco: Never Comments:20 yrs ago Alcohol Use Standard Drinks/Week Comments Yes 0 (1 standard drink = 0.6 oz pur e alcohol) socially PHQ-2 Answer Date Recorded PHQ-2 score 3 02/15/2018 Comments No Sex and Gender Information Value [...] documented as of this encounter Care Teams Ice Crusher Relationship Specialty Start Date End Date Holland Lyons DO [address] [place] [address] PCP - General Family Medicine 03/06/16 documented as of this encounter
--- OUTSIDE RECORDS SUMMARY | 2025-03-19 12:31 | XMS_ITS | Encounter Summary ---
Author Organization [facility] Address [address] [place] [address] Care Team Providers Care Adventure Education Teacher Name Role Phone Holland Lyons Primary Care Provider Source Comments In the event this information is protected by the Federal Confidentiality of Alcohol and Drug AbusePatient Records regulations: The Federal rules restrict any use of the information to criminally investigate or prosecute any alcohol or drug abuse patient.[facility] Encounter Details Date Type Department Care Team (Late st Contact Info) Description 05/06/2022 Get Medical Advice BMI [facility] REJ [address] [place], [place] [phone] Provider, [facility]cf Weight loss, nauseous Social History Tobacco Use Types Packs/Day Years [...] N ot on file 11/27/2021 Data from: https://www.neighborhoodatlas.[facility]/. Last address used for calculation [address] 11/27/2021 Comments No Sex and Gender Information [...] on filedocumented in this encounter Care Teams Adventure Education Teacher Relationship Specialty Start Date End Date Holland Lyons DO [address] [place] [address] PCP - General Family Medicine 03/06/16 documented as of this encounter
--- OUTSIDE RECORDS SUMMARY | 2025-03-19 12:31 | XMS_ITS | Encounter Summary ---
Author Organization [facility] Address [address] [place] [address] Care Team Providers Care Team Cdl Driver Name Role Phone Holland Lyons Primary Care Provider Source Comments In the event this information is protected by the Federal Confidentiality of Alcohol and Drug AbusePatient Records regulations: The Federal rules restrict any use of the information to criminally investigate or prosecute any alcohol or drug abuse patient.[facility] Encounter Details Date Type Department Care Team (Late st Contact Info) Description 06/01/2022 Patient Msg General Surgery [address] [phone] Provider, Ccf Nutrition Summary Social History Tobacco [...] N ot on file 11/27/2021 Data from: https://www.neighborhoodatlas.medicine.[facility]/. Last address used for calculation [address] [...] on filedocumented in this encounter Care Teams Team Cdl Driver Relationship Specialty Start Date End Date Holland Lyons DO [address] [facility] [place] [address] PCP - General Family Medicine 03/06/16 documented as of this encounter
--- OUTSIDE RECORDS SUMMARY | 2025-03-19 12:31 | XMS_ITS | Encounter Summary ---
Author Organization [facility] Address [address] [place] [address] Phone Care Team Providers Care Supply Analyst Name Role Phone Holland Lyons DO Primary Care Provider Encounter Details Date Type Department Care Team (Late st Contact Info) Description 09/16/2022 Orders Only [facility] [address] [place] [address] Conversion, Onbase Social History Tobacco Use Types [...] r Schedule OUTSIDE LAB SCAN Lab Ordered: 09/16/2022 documented as of this encounter Visit Diagnoses Not on filedocumented in this encounter Care Teams Supply Analyst Relationship Specialty Start Date End Date Holland Lyons DO PCP - General 10/14/22 documented as of this encounter
--- OUTSIDE RECORDS SUMMARY | 2025-03-19 12:32 | XMS_ITS | Encounter Summary ---
Author Organization [employer] tem Address [id number] [address] [place] [address] Care Team Providers Care Pv Installer Tech Name Role Phone KristinaHolland cutler Jojo HARVEY Primary Care Provider [phone] Encounter Details Date Type Department Care Team (Latest Contact Info) Description 03/14/2025 Travel Social History Tobacco Use Types Packs/Day [...] week 12/22/2022 How often do you attend [facility] or quaker services? More than 4 times per year 12/22/2022 Do you belong to any clubs o r organizations such as restoration groups, unions, fraternal or athletic groups, or [...] you are drinking? Patient does not drink 3 Q3: How often do you have si x or more drinks on one occasion? Never 12/22/2022 Overall Financial Resource Strain (CARDIA) Answe r Date Recorded How hard is it for you to pa y for the very basics like food, housing, medical care, and heating? Not hard at all 12/22/2022 PHQ-2 Answer Date Recorded Total Score 0 01/11/2025 [facility] of Occupat ional Health - Occupational Stress [...] Recorded Do you need help finding a l al career center and/or a training program? No [...] EDT Office Visit [facility] [place] [address] [facility] [address] [place] [address] Griselda Moore, INDUSTRIAL SERVICER-ETCHER APPRENTICE [address], [facility] [address] [place] [address] 11/08/2025 2:00 PM EDT Office Visit [facility] - Family Medicine [address] [place] [address] documented as of this encounter Visit Diagnoses Not on filedocumented in this encounter Additional Health Concerns Assessment Noted Time PHQ-9 Depression Total Score: 0 01/12/20 25 3:38 PM EDT documented as of this encounter Care Teams Pv Installer Tech Relationship Specialty Start Date End Date Holalnd Lyons DO [address] [place] [address] PCP - General Family Medicine 06/13/19 documented as of this encounter
--- OUTSIDE RECORDS SUMMARY | 2025-03-19 12:32 | XMS_ITS | Encounter Summary ---
Author Organization [employer] s tem Address [id number] [address] [place] [address] Care Team Providers Care Gaming Cashier Name Role Phone SerenaHolland Jojo HARVEY Primary Care Provider + [phone] Encounter Details Date Type Department Care Team (Late st Contact Info) Description 03/13/2025 Orders Only [facility] [address] [place] [address] [place] [address] Deepthi Monsalve LPN Social History Tobacco Use Types Packs/Day Years [...] 12/22/2022 How often do you attend chur ch or restorationist services? More than 4 times per year 12/22/2022 Do you belong to any clubs o r organizations such as alevism groups, unions, fraternal or athletic groups, or [...] Answer Date Recorded Total Score 0 01/11/2025 [facility] of Occupat ional Health - Occupational [...] Do you need help finding a l ocal career center and/or a training program? No [...] EDT Office Visit [facility] [place] [address] [facility] [address] [place] [address] Griselda Moore, STREET SWEEPER-CNC CUTTING OPERATOR [address], [facility] [address] [place] [address] 11/08/2025 2:00 PM EDT Office Visit [facility] - Family Medicine [address] [place] [address] documented as of this encounter Visit Diagnoses Not on filedocumented in this encounter Additional Health Concerns Assessment Noted Time PHQ-9 Depression Total Score: 0 01/12/20 25 3:38 PM EDT documented as of this encounter Care Teams Gaming Cashier Relationship Specialty Start Date End Date Holland Lyons DO [address] [place] [address] PCP - General Family Medicine 06/13/19 documented as of this encounter
--- OUTSIDE RECORDS SUMMARY | 2025-03-19 12:32 | XMS_ITS | Encounter Summary ---
Author Organization [facility] Address [id number] [address] [place] [address] Care Team Providers Care Metal Bonding Helper Name Role Phone Holland Lyons Primary Care Provider + [phone] Encounter Details Date Type Department Care Team (Late st Contact Info) Description 01/23/2025 [facility] [address] [place] [address] Ref Prov, [place] [address] Social History Tobacco Use Types Packs/Day Years [...] often do you attend chur ch or orthodoxy services? More than 4 times per year 12/22/2022 Do you belong to any clubs o r organizations such as anabaptism groups, unions, fraternal or athletic groups, or [...] Answer Date Recorded Total Score 0 01/11/2025 [facility] of Occupat ional Health - Occupational Stress [...] EDT Office Visit [facility] [address] [facility] [address] [place] [phone] Griselda Moore, SHEET METAL WORKER MAINTENANCE-WORK STUDY STUDENT [address], [facility] [address] [place] [address] 11/08/2025 2:00 PM EDT Office Visit [facility] - Family Medicine [address] [place] [address] documented as of this encounter Procedures Procedure Name Priority Date/Time Associated Diagnosis Comments ECG 12-LEAD Routine 01/23/2025 8:57 AM EDT documented in this encounter Results * ECG 12 lead (01/23/2025 8:57 AM EDT) us Not In System Ref Prov ECG ORDERABLES Final Res ult MANUALLY TRANSCRIBED RESULTS documented in this encounter Visit Diagnoses Not on filedocumented in this encounter Additional Health Concerns Assessment Noted Time PHQ-9 Depression Total Score: 0 01/12/20 25 3:38 PM EDT documented as of this encounter Care Teams Metal Bonding Helper Relationship Specialty Start Date End Date Holland Lyons DO [address] [place] [address] PCP - General Family Medicine 06/13/19 documented as of this encounter
--- OUTSIDE RECORDS SUMMARY | 2025-03-19 12:32 | XMS_ITS | Encounter Summary ---
Author Organization [employer] [facility] tem Address [id number] [address] [place] [address] Care Team Providers Care Human Resources Safety Manager Name Role Phone KristinaHolland cutler Jojo HARVEY Primary Care Provider [phone] Encounter Details Date Type Department Care Team (Latest Contact Info) Description 03/08/2025 Travel Social History Tobacco Use Types Packs/Day [...] week 12/22/2022 How often do you attend [facility] or buddhist services? More than 4 times per year 12/22/2022 Do you belong to any clubs o r organizations such as presybeterian groups, unions, fraternal or athletic groups, or [...] Answer Date Recorded Total Score 0 01/11/2025 [facility] of Occupat ional Health - Occupational [...] EDT Office Visit [facility] [place] [address] [facility] [address] [place] [address] Griselda Moore, LEGAL SUPPORT SPECIALIST-FREIGHT UNLOADER [address], [facility] [address] [place] [address] 11/08/2025 2:00 PM EDT Office Visit [facility] [address] [place] [address] documented as of this encounter Visit Diagnoses Not on filedocumented in this encounter Additional Health Concerns Assessment Noted Time PHQ-9 Depression Total Score: 0 01/12/20 25 3:38 PM EDT documented as of this encounter Care Teams Human Resources Safety Manager Relationship Specialty Start Date End Date Holland Lyons DO [address] [place] [address] PCP - General Family Medicine 06/13/19 documented as of this encounter
--- OUTSIDE RECORDS SUMMARY | 2025-03-19 12:32 | XMS_ITS | Patient Health Record ---
Author Organization [facility] Address [address] [place], [place] [id number] Care Team Providers Care Access Control Officer Name Role Phone Kameron Piña Unavailable [phone] Reason For Referral No Information Plan Of Treatment No Information
--- OUTSIDE RECORDS SUMMARY | 2025-03-19 12:32 | XMS_ITS | Encounter Summary ---
Author Organization [facility] Address [address] [place] [address] Care Team Providers Care Repairer Sash And Door Name Role Phone Holland Lyons DO Primary Care Provider [phone] Encounter Details Date Type Department Care Team (Late st Contact Info) Description 03/08/[address] [facility] [address] [place] [address] Adrian Ibrahim MD [address] [place] [address] Social History Tobacco Use Types Packs/Day Years Used Date Smoking Tobacco: Former Cigarettes Q uit: 1999 Smokeless Tobacco: Never Alcohol Use Standard Drinks/Week Comments Not Currently 0 (1 standard drink = 0.6 oz pur e alcohol) [facility] Utilities Answer Date Recorded In the past 12 months has [facility], gas, oil, or water [employer] threatened to shut off services in your [...] Description 04/10/2025 11:30 AM EDT Ancillary Procedure [address] [address] 06/19/2025 9:15 AM EST Office Visit [facility] [address] [place] [address] Adrian Ibrahim MD [address] [place] [address] documented as of this encounter Procedures Procedure Name Priority Date/Time Associated Diagnosis Comments CARDIAC DEVICE CHECK - REMOTE - PACEMAKER Routine 03/08/2025 12:00 AM EDT documented in this encounter Results * Cardiac device check - Remote pacemaker (03/08/2025 12:00 AM EDT) Anatomical Region Laterality Modality Other 03/08/2025 us Adrian Ibrahim MD CV IMPLANTABLE CARDIAC DEVICE ID OCEDURES Final Result documented in this encounter Visit Diagnoses Not on filedocumented in this encounter Care Teams Repairer Sash And Door Relationship Specialty Start Date End Date Holland Lyons DO PCP - General 01/04/23 documented as of this encounter
--- OUTSIDE RECORDS SUMMARY | 2025-03-19 12:32 | XMS_ITS | Encounter Summary ---
Author Organization [facility] Address [id number] [address] [place] [address] Care Team Providers Care Menagerie Caretaker Name Role Phone Holland Lyons DO Primary Care Provider [phone] Encounter Details Date Type Department Care Team (Late st Contact Info) Description 06/21/2024 Orders Only [facility] - Family Medicine [address] [place] [address] Holland Lyons DO [address], [facility] [place] [address] Social History Tobacco Use Types Packs/Day Years [...] often do you attend chur ch or shinto services? More than 4 times per year 12/22/2022 Do you belong to any clubs o r organizations such as yazdanism groups, unions, fraternal or athletic groups, or [...] PHQ-2 Answer Date Recorded Total Score 0 03/03/2024 [facility] of Occupat ional Health - [...] Recorded Do you need help finding a [facility] career center and/or a training program? No 12/22/2022 Hunger Screening Answer Date Recorded Within the past 12 months we worried whether our food would run out before we got money to buy more. Never True 03/29/2024 Within the past 12 months th e food we bought just didn't last and we didn't have money to get more. Never True 03/29/2024 Purpose - Life Answer Date Recorded I [...] EDT Office Visit [facility] [place] [address] [facility] [facility] [address] [place] [address] Griselda Moore, MARINE GEAR KEEPER-RESEARCH AND EVALUATION ANALYST [address], [facility] [address] [place] [address] 11/08/2025 2:00 PM EDT Office Visit [facility] - Family Medicine [address] [place] [address] documented as of this encounter Procedures Procedure Name Priority Date/Time Associated Diagnosis Comments ECHO COMPLETE WO CONTRAST Routine 06/20/2024 9:32 AM EST documented in this encounter Visit Diagnoses Not on filedocumented in this encounter Additional Health Concerns Assessment Noted Time PHQ-9 Depression Total Score: 0 03/03/20 24 9:23 AM EDT documented as of this encounter Care Teams Menagerie Caretaker Relationship Specialty Start Date End Date Holland Lyons DO [address], [place] [address] PCP - General Family Medicine 06/13/19 documented as of this encounter
--- OUTSIDE RECORDS SUMMARY | 2025-03-19 12:32 | XMS_ITS | Encounter Summary ---
Author Organization [facility] Address [facility] [id number] [address] [place] [address] Care Team Providers Care Apartment Leasing Agent Name Role Phone Holland Lyons Primary Care Provider + [phone] Encounter Details Date Type Department Care Team (Late st Contact Info) Description 07/25/2024 Orders Only [facility] Internal Medicine - Family Medicine [address] [place] [address] Ref Prov, [place] [address] Social History Tobacco Use Types Packs/Day Years [...] often do you attend chur ch or holiness services? More than 4 times per year [...] Answer Date Recorded Total Score 0 03/03/2024 [facility] [place] of Occupat ional Health - Occupational Stress [...] Office Visit [facility] [place] [address] [facility] [address] [place] [phone] Griselda Moore, LOOM OPERATOR-TESTER ROCKET ENGINE [address], [facility] [address] [place] [address] 11/08/2025 2:00 PM EDT Office Visit [facility] Internal Medicine - Family Medicine [address] [place] [phone] documented as of this encounter Procedures Procedure Name Priority Date/Time Associated Diagnosis Comments XR ABDOMEN AP 1 VW Routine 07/25/2024 2:16 PM EST documented in this encounter Results * X-ray abdomen ap 1 view (07/25/2024 2:16 PM EST) Anatomical Region Laterality Modality Body, Abdomen N/A Computed Radiogr aphy us Not In System Ref Prov IMG DIAGNOSTIC IMAGING OR DERABLES Final Result documented in this encounter Visit Diagnoses Not on filedocumented in this encounter Additional Health Concerns Assessment Noted Time PHQ-9 Depression Total Score: 0 03/03/20 24 9:23 AM EDT documented as of this encounter Care Teams Apartment Leasing Agent Relationship Specialty Start Date End Date Holland Lyons DO [address], [place] [address] PCP - General Family Medicine 06/13/19 documented as of this encounter
--- OUTSIDE RECORDS SUMMARY | 2025-03-19 12:32 | XMS_ITS | Encounter Summary ---
Author Organization [facility] Address [facility] [id number] [address] [place] [address] Care Team Providers Care Driver Supervisor Name Role Phone SerenaHolland Jojo HARVEY Primary Care Provider [phone] Encounter Details Date Type Department Care Team (Late st Contact Info) Description 06/19/2024 Telephone [facility] Internal Medicine - Family Medicine [address] [place] [phone] Alisa Huff, ELAYNE Social History Tobacco Use Types Packs/Day Years [...] often do you attend chur ch or yarsani services? More than 4 times per year 12/22/2022 Do you belong to any clubs o r organizations such as mosque groups, unions, fraternal or athletic groups, or [...] Answer Date Recorded Total Score 0 03/03/2024 [facility] of Occupat [facility] - Occupational Stress Questionnaire Answer Date Recorded [...] Recorded Do you need help finding a [facility] and/or a training program? No [...] on file documented as of this encounter Miscellaneous Notes * Telephone Encounter - Alisa Huff CMA - 06/19/2024 10:25 AM EST Pt called to get her handicap plaquard renewed * Telephone Encounter - Holland Lyons DO - 06/19/2024 10:25 AM EST What condition is it for? Her heart? Back? Does she need to use a cane? * Telephone Encounter - Alisa Huff CMA - 06/19/2024 10:25 AM EST Called pt she said you wrote it for her fibromyalgia and arthritis and now her heart and no she don't use a cane * Telephone Encounter - Holland Lyons DO - 06/19/2024 10:25 AM EST Okay. Note printed documented in this encounter Plan of Treatment Upcoming Encounters Date Type Department Care Team (Late st Contact Info) Description 04/18/2025 3:40 PM EDT Office Visit [facility] [place] [address] [phone] Griselda Moore, CIRCUS HAND-NUCLEAR POWERPLANT MECHANIC HELPER [address], [place] [address] [place], [place] [phone] 11/08/2025 2:00 PM EDT Office Visit [facility] Medicine - Family Medicine [address] [place] [address] documented as of this encounter Visit Diagnoses Not on filedocumented in this encounter Additional Health Concerns Assessment Noted Time PHQ-9 Depression Total Score: 0 03/03/20 24 9:23 AM EDT documented as of this encounter Care Teams Driver Supervisor Relationship Specialty Start Date End Date Holland Lyons DO [address], [facility] [place] [place] [address] PCP - General Family Medicine 06/13/19 documented as of this encounter
--- OUTSIDE RECORDS SUMMARY | 2025-03-19 12:32 | XMS_ITS | Encounter Summary ---
Author Organization [facility] tem Address [facility] [id number] [address] [place] [address] Care Team Providers Care Hydro Technician Name Role Phone Holland Lyons Primary Care Provider [phone] Encounter Details Date Type Department Care Team (Late st Contact Info) Description 01/31/2025 Results Follow-Up [facility] Internal Medicine - Family Medicine [address] [address] Maci Winslow, STATISTICS INTERN-BOARDINGHOUSE KEEPER [address] [place] [address] X-ray abdomen ap 1 view Social History Tobacco Use Types Packs/Day Years [...] often do you attend chur ch or cheondoism services? More than 4 times per year [...] Answer Date Recorded Total Score 0 01/11/2025 [facility] [place] of Occupat ional Health - Occupational Stress [...] Recorded Do you need help finding a [facility] career center and/or a training program? [...] EDT Office Visit [facility] [address] [facility] [address] [place] [phone] Griselda Moore, STATISTICS INTERN-BOARDINGHOUSE KEEPER [address], [facility] [address] [place] [address] 11/08/2025 2:00 PM EDT Office Visit [facility] Medicine - Family Medicine [address] [place] [phone] documented as of this encounter Visit Diagnoses Not on filedocumented in this encounter Additional Health Concerns Assessment Noted Time PHQ-9 Depression Total Score: 0 01/12/20 25 3:38 PM EDT documented as of this encounter Care Teams Hydro Technician Relationship Specialty Start Date End Date Holland Lyons DO [address] [place] [address] [address] PCP - General Family Medicine 06/13/19 documented as of this encounter
--- OUTSIDE RECORDS SUMMARY | 2025-03-19 12:32 | XMS_ITS | Encounter Summary ---
Author Organization [facility] Address [address] [place] [id number] Care Team Providers Care Breakfast Cook Name Role Phone Holland Lyons DO Primary Care Provider Source Comments In the event this information is protected by the Federal Confidentiality of Alcohol and Drug AbusePatient Records regulations: The Federal rules restrict any use of the information to criminally investigate or prosecute any alcohol or drug abuse patient.[facility] Encounter Details Date Type Department Care Team (Late st Contact Info) Description 12/30/2017 Get Medical Advice Rheumatology [address] [place] [address] Carlos Alberto Monge (Fel)(Hist) [address] [place] [address] RE: Non-Urgent Medical Question Social History Tobacco Use Types Packs/Day Years Used Date Smoking Tobacco: Former Cigarettes 0.5 5 1 - 04/13/2000 Smokeless Tobacco: Never Comments:20 yrs ago Alcohol [...] documented as of this encounter Care Teams Breakfast Cook Relationship Specialty Start Date End Date Holland Lyons DO [address] [place] [address] PCP - General Family Medicine 03/06/16 documented as of this encounter
--- OUTSIDE RECORDS SUMMARY | 2025-03-19 12:32 | XMS_ITS | Clinical Summary ---
Author Organization [facility] Address [id number] [address] [place] [address] Care Team Providers Care Brim Raiser Name Role Phone Holland Lyons Primary Care Provider [phone] Allergies Active Allergy Reactions Criticality Noted Date Comments Anesthetics - Amide Type - Select Amino Amides 08/29/2020 Clarithromycin 06/08/2019 Cephalexin Hives,Other (See Comments) High 09/18/2016 Other reaction(s): Other: See Comments Peeling of skin Other Reaction(s): Skin pealing Other reaction(s): Other: See Comments Peeling of skin Peeling of skin. Has received multiple courses of piperacillin/tazob actam without noted reaction inpatient. Peeling of skin. Has received multiple courses of piperacillin/tazob actam without noted reaction inpatient. Codeine Anaphylaxis High 07/11/2012 Sulfamethoxazole Rash Low 10/06/2022 Tramadol Hallucinations,Abno rmal Behavior,Other (See Comments) Medium 01/12/2023 Hallucinations and nightmares Trimethoprim Rash Low 10/06/2022 Medications pravastatin (PRAVACHOL) 20 mg tablet Take 1 tablet (20 mg total) by mouth nightly. 10/15/19 Active famotidine (PEPCID) 20 mg tablet Take 1 tablet (20 mg total) by mouth in the morning. Active furosemide (LASIX) 40 mg tablet Take 1 tablet (40 mg total) by mouth daily. Active metoprolol tartrate (LOPRESSOR) 25 mg tablet Take 1 tablet (25 mg total) by mouth in the morning and 1 tablet (25 mg total) before bedtime. Active apixaban (ELIQUIS) 5 mg tablet Take 1 tablet (5 mg total) by mouth in the morning and 1 tablet (5 mg total) before bedtime. Active isosorbide mononitrate (IMDUR) 30 mg 24 hr tablet Instruction s: TAKE 1 TABLET BY MOUTH DAILY DO NOT CRUSH OR CHEW 12/13/19 Active oxyCODONE-aceta minophen (PERCOCET) 5-325 mg per tablet as needed. Active levothyroxine (SYNTHROID, LEVOTHROID) 112 MCG tablet Take 1 tablet (112 mcg total) by mouth in the morning. 01/02/20 25 Active vkcbaopg-xzc-bz xw-aujqm-qdm K1 8 mg-400 mcg- 10 mcg tablet,chewable Chew 1 tablet and swallow in the morning. 03/31/20 22 025 Discontinued(St op Taking at Discharge) aspirin 81 mg chewable tablet Chew 1 tablet (81 mg total) and swallow in the morning. 09/19/19 23 025 Discontinued(St op Taking at Discharge) methylPREDNISol one (MEDROL, VAISHNAVI,) 4 mg tablet 08/29/19 25 025 Discontinued(St op Taking at Discharge) spironolactone (ALDACTONE) 25 mg tablet Take 1 tablet (25 mg total) by mouth in the morning. 025 Discontinued Active Problems Problem Noted Date Diagnosed Date Sinus node dysfunction 08/31/2024 Vasospastic angina 08/31/2024 Adhesive capsulitis of left shoulder 03/03/2024 Tear of left rotator cuff 03/03/2024 Closed nondisplaced fracture of anterior process of right calcaneus 10/05/2023 Postmenopausal 10/05/2023 NSTEMI (non-ST elevated myocardial infarction) 0 08/25/2023 Abdominal wall fluid collections 05/03/2023 SVT (supraventricular tachycardia) 12/17/2022 Overview (10/05/2023): Last Assessment & Plan: Assessment: Has holter monitor on currently, is to come off on 06/28. Follows cardiology, Dr. Donaldson in [place]. Reports lightheadedness, no syncope, CP, SOB. Last Assessment & Plan: Assessment: HR stable 60-70 BPM. Plan: - Continue metop - hold parameters in place Last Assessment & Plan: - 30 Day event monitor - CHADVASC 1, for now we will have her continue her aspirin Gastroesophageal reflux disease without esophagi tis 12/16/2022 Overview (10/05/2023): Last Assessment & Plan: Assessment: Controlled on rx. Advised avoidance of triggers. Following with PCP. Last Assessment & Plan: Plan: - Continue home pepcid History of non-ST elevation myocardial infarctio n (NSTEMI) 12/16/2022 Overview (10/05/2023): Last Assessment & Plan: Assessment: d/t coronary vasospasms, follows cardiology. Denies stents. Last Assessment & Plan: Assessment: LHC 09/17/22 without blockages. Started on aspirin. LVEF 60% Plan: - Discuss with staff when to resume Asa (oozy case) AV nancy re-entry tachycardia 11/27/2022 Gastric leak 03/03/2022 11/05/2022 Gastric perforation 12/13/2021 11/05/2022 Overview (11/05/2022): Last Assessment & Plan: Assessment: Underwent lap sleeve gastrectomy in October 2020 complicated by chronic leak managed with drains and most recently endoscopic ablation and suturing. Now transfer from OSH for perforation. 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 Received 3L crystalloid in ED PLAN: - Volume replacement in TPN Shortness of breath 08/29/2020 Abnormal cardiovascular stress test 06/19/2019 Overview (06/19/2019): Added automatically from request for surgery [id number] Essential hypertension 06/13/2019 Keratoderma 04/28/2018 11/05/2022 History of uveitis 08/23/2017 11/05/2022 Pain in joints 08/23/2017 11/05/2022 Arthritis 07/04/2017 11/05/2022 Overview (11/05/2022): New onset Joint pain and swelling of b/l wrist, DIP, PIP and MCP. Right ankle and left hip Associated with pink eye on 06/26/17 UA positive for UTI at that time, given ciprofloxacin No improvement with antibiotics, given prednisone taper Optho evaluation showed increased IOP with concern for inflammation - started on timolol and steroid drops Elevated ESR, CRP SLE vs Sarcoid vs RA vs inflammatory arthritis Plan: Monitor vitals and clinically for worsening of rash and arthritis Naproxen 500mg TID for inflammation Continue prednisone 40mg today, followed by 20mg for next 3 days as per taper. Opthalmology consult for concern for iritis Rheum consult Postoperative seroma of subc utaneous tissue after non-dermatologic procedure 02/08/2017 11/05/2022 Hypothyroid 06/23/2016 11/05/2022 Overview (11/05/2022): ON levothyroxine 200 mcg Plan: TSH Continue home meds Last Assessment & Plan: Assessment: stable Other plastic surgery for unacceptable cosmetic appearance 07/18/2012 11/05/2022 Hyperlipidemia Obstructive sleep apnea Obesity Hypertriglyceridemia Edema Chronic eczema of hand Tinea pedis Vitamin D deficiency Resolved Problems Problem Noted Date Diagnosed Date Resolved Date Obesity, Class III, BMI 40-4 9.9 (morbid obesity) 02/12/2024 04/27/2024 Mild protein-calorie malnutrition 12/13/2021 023 02/12/2024 Overview (11/05/2022): Last Assessment & Plan: Assessment: Malnutrition PLAN: - Nutrition following - Continue TPN COPD (chronic obstructive pulmonary disease) 6 11/05/2022 06/17/2023 Overview (11/05/2022): COPD on anoro-ellipta and albuterol prn Stale, no SOB wheezing Plan: Continue home meds Last Assessment & Plan: Assessment: inhaler as needed. 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 Encounters Date Type Department Care Team Description 03/14/2025 9:01 AM EDT - 03/14/2025 11:59 PM EDT Hospital Encounter [facility] - Ultrasound [address] [place] [id number] Lori Carter MD DARLEEN (acute kidney injury) Discharge Disposition: Home 03/14/2025 Travel 03/13/2025 Orders Only [facility] [place] [address] Deepthi Monsalve LPN 03/08/2025 9:40 AM EDT Office Visit [facility] [place] [address] Lori Carter MD DARLEEN (acute kidney injury) (Primary Dx); Abnormal kidney function 03/08/2025 Results Follow-Up [facility] [place] [address] Lori Carter MD Hepatitis C(HCV) Ab w/ Reflex to PCR, CK Total, Complement profile (C3 AND C4), Additional followed-up results: 11 03/08/2025 Travel 03/02/2025 Telephone [facility] [address] [place] [address] External, Scanning Provider 03/02/2025 Orders Only [facility] - [facility] Medicine [address] [place] [address] Maci Winslow, WAITER/WAITRESS BUFFET-GEAR NICKER Abnormal kidney function (Primary Dx) 01/31/2025 [facility] [address] [place] [address] Maci Winslow, WAITER/WAITRESS BUFFET-GEAR NICKER X-ray abdomen ap 1 view 01/24/2025 4:05 PM EDT - 01/24/2025 11:59 PM EDT Hospital Encounter [facility] - Radiology [address] [facility] [id number] Abnormal renal function Discharge Disposition: Home 01/24/2025 Travel 01/23/2025 Orders Only [facility] [address] [place] [address] Ref Prov, Not In System 01/15/2025 Orders Only [facility] - Family Medicine [address] [place] [address] Maci Winslow, WAITER/WAITRESS BUFFET-GEAR NICKER Abnormal renal function (Primary Dx) 01/11/2025 3:00 PM EDT [facility] [address] [place] [phone] Maci Winslow, WAITER/WAITRESS BUFFET-GEAR NICKER Abnormal kidney function (Primary Dx); Hypothyroidism, unspecified type 01/11/2025 Travel from Last 3 Months Immunizations Immunization Administration Dates Next Due Covid-19, Mrna, Lnp-s, Bival ent, Pf, 30mcg/0.3 ml 04/20/2022 Influenza (IM) Preservative Free 04/18/2017,05/06 Influenza, Im Trivalent Preservative 05/15/2016, 06/01/2015 Influenza, Injectable, Mdck, Preservative Free, Quad 05/01/2018 Influenza, Injectable, Quadrivalent 05/04/2018 Influenza, Injectable, quadr ivalent (PF) 04/14/2023,04/13/2022,06/03/2021,04/19,04/23/2019 Influenza, Unspecified 04/21/2017,04/04/2016 Pneumococcal Conjugate 13-Valent 05/22/2016 Pneumococcal Polysaccharide 06/03/2021 Pneumococcal, Unspecified 05/22/2016 SARS-COV-2 (COVID-19) Vaccin e, Unspecified 04/20/2022 Tdap 06/16/2022 Zoster Live 06/16/2022,04/13/2022 Zoster Vaccine Recombinant 06/16/2022,04/13/2022 Family History Medical History Relation Name Comments No Known Problems Father No Known Problems Mother Breast cancer Neg Hx Relation Name Status Comments Father Mother Social History Tobacco Use Types Packs/Day Years Used Date Smoking Tobacco: Former Smokeless Tobacco: Never Tobacco Cessation:Counseling Given: Not Answered Comments:15 yrs 1/2 PPD 25 yrs since [...] often do you attend chur ch or anabaptism services? More than 4 times per year 12/22/2022 Do you belong to any clubs o r organizations such as episcopalian groups, unions, fraternal or athletic groups, or [...] Answer Date Recorded Total Score 0 01/11/2025 [facility] Occupat [facility] - Occupational Stress Questionnaire Answer Date Recorded [...] Recorded Do you need help finding a [facility] hospital[facility] career center and/or a training program? No [...] Pulse 71 03/08/2025 9:51 AM EDT Temperature 36.4 C (97.6 F) 01/11/2025 3:40 PM EDT Respiratory Rate 20 01/11/2025 3:40 PM EDT Oxygen Saturation 97% 03/08/2025 9:49 AM EDT Inhaled Oxygen Concentration - - Weight 63.5 kg (140 lb) 03/08/2025 9:49 AM EDT Height 160 cm (5' 2.99 ) 01/11/2025 3:40 PM EDT Body Mass Index 24.81 01/11/2025 3:40 PM EDT Plan of Treatment Upcoming Encounters Date Type Department Care Team (Late st Contact Info) Description 04/18/2025 3:40 PM EDT Office Visit [facility] [place] [address] [facility] [address] [place] [address] Griselda Moore, WAITER/WAITRESS BUFFET-GEAR NICKER [address] [place] [address] 11/08/2025 2:00 PM EDT Office Visit [facility] - Family Medicine [address] [place] [phone] Health Maintenance Due Date Last Done Comments Statin Use: Cardiovascular 1965 Colon Cancer Screening Annual FOBT 06/20/20232021 Mammogram 11/10/2023 11/09/2022 Influenza Vaccine 03/05/2025 04/14/2023, , 06/03/2021, Additional history exists Depression Screening 01/11/2026 01/11/2025 Tobacco Screening 01/11/2026 01/11/2025 Adult BMI Screening 03/08/2026 03/08/2025 DTaP,Tdap and Td Vaccines (2 - Td or Tdap) 06/16/2032 06/16/2022 COVID-19 Vaccine Discontinued 04/20/2022, , 05/06/2021, Additional history exists Zoster (Shingles) Vaccine Discontinued 2021, 06/16/2022, 04/13/2022, Additional history exists Medical Devices Implanted Type Area Top Printing Press Operator Device Identifier Shelf Expiration Date Model / Serial / Lot Ingevity+ Pacing Lead Bi Positive Fix Ra/Rv Implanted:02/07/2024 (Quantity not on file) Implant [employer]ants [id number] / [id number] / Description:1.5 T or 3 T sca nner allowed. Normal Operating Mode or First Level Controlled Operating Mode 1. Horizontal, 1H proton, closed bore scanners only 2. MRI magnet strength of 1.5 T (64 MHz) or 3 T (128 MHz) 3. Spatial gradient no greater than 50 T/m (5,000 G/cm) 4. Specific Absorption Rate (DHRUV) limits: Whole body averaged, <= 4.0 W/kg Head, <= 3.2 W/kg 5. Gradient Field limits: Maximum specified gradient slew rate <= 200 T/m/s per axis 6. There are no restrictions for positioning the pacing system within the integrated body coil of the MRI scanner. The use of receive-only coils is not restricted. Local transmit coils may be used, but should not be placed directly over the pacing system. 7. Patient in supine or prone position only 8. The patient must be monitored during the MRI scan by pulse oximetry and/or electrocardiography (ECG) Ingevity+ Pacing Lead Bi Positive Fix Ra/Rv Implanted:02/07/2024 (Quantity not on file) Implant Lead [employer] [id number] / [id number] / Description:1.5 T or 3 T sca nner allowed. Normal Operating Mode or First Level Controlled Operating Mode 1. Horizontal, 1H proton, closed bore scanners only 2. MRI magnet strength of 1.5 T (64 MHz) or 3 T (128 MHz) 3. Spatial gradient no greater than 50 T/m (5,000 G/cm) 4. Specific Absorption Rate (DHRUV) limits: Whole body averaged, <= 4.0 W/kg Head, <= 3.2 W/kg 5. Gradient Field limits: Maximum specified gradient slew rate <= 200 T/m/s per axis 6. There are no restrictions for positioning the pacing system within the integrated body coil of the MRI scanner. The use of receive-only coils is not restricted. Local transmit coils may be used, but should not be placed directly over the pacing system. 7. Patient in supine or prone position only 8. The patient must be monitored during the MRI scan by pulse oximetry and/or electrocardiography (ECG) Accolade Mri Pulse Generator Implanted:02/07/2024 (Quantity not on file) Pacemaker [employer] [id number] / [id number] / Description:1.5 T or 3 T sca nner allowed. Normal Operating Mode or First Level Controlled Operating Mode 1. Horizontal, 1H proton, closed bore scanners only 2. MRI magnet strength of 1.5 T (64 MHz) or 3 T (128 MHz) 3. Spatial gradient no greater than 50 T/m (5,000 G/cm) 4. Specific Absorption Rate (DHRUV) limits: Whole body averaged, <= 4.0 W/kg Head, <= 3.2 W/kg 5. Gradient Field limits: Maximum specified gradient slew rate <= 200 T/m/s per axis 6. There are no restrictions for positioning the pacing system within the integrated body coil of the MRI scanner. The use of receive-only coils is not restricted. Local transmit coils may be used, but should not be placed directly over the pacing system. 7. Patient in supine or prone position only 8. The patient must be monitored during the MRI scan by pulse oximetry and/or electrocardiography (ECG) Stent Zimmon 7fr 2 Pigtail Curve Purple Polyethylene Biliary Implanted:10/08/2021 (Quantity not on file) Stent Abdomen [employer] [id number] / [id number] / Description:Static magnetic field of 3.0 kelsea or less Maximum spatial magnetic gradient of 1,600 gauss/cm or less Maximum MR system reported, nnuhd-pdms-vrqjekxt specific absorption rate (DHRUV) of 2.0 W/kg normal operating mode for 15 minutes of scanning or less (i.e., per scanning sequence) Static Magnetic Field The static magnetic field for comparison to the above limits is the static magnetic field that is pertinent to the patient (i.e., outside of scanner covering, accessible to a patient or individual). Procedures Procedure Name Priority Date/Time Associated Diagnosis Comments US RETROPERITONEAL COMPLETE Routine 03/05 9:28 AM EDT DARLEEN (acute kidney injury) CLINICAL PATHOLOGY REVIEW Routine 2024 6:10 PM EDT DARLEEN (acute kidney injury) URINE CULTURE Routine 03/09/2025 8:13 AM EDT Dysuria MICROALBUMIN / CREATININE URINE RATIO Routine 03/08/2025 11:32 AM EDT DARLEEN (acute kidney injury) PROTEIN CREAT RATIO Routine 03/08/2025 1 1:32 AM EDT DARLEEN (acute kidney injury) URINALYSIS Routine 03/08/2025 11:32 AM EDT DARLEEN (acute kidney injury) CBC (NO DIFF) Routine 03/08/2025 11:23 AM EDT DARLEEN (acute kidney injury) MAGNESIUM Routine 03/08/2025 11:23 AM EDT DARLEEN (acute kidney injury) PHOSPHORUS Routine 03/08/2025 11:23 AM EDT DARLEEN (acute kidney injury) BASIC METABOLIC PANEL Routine 03/08/2025 11:23 AM EDT DARLEEN (acute kidney injury) PROTEIN ELECTROPHORESIS, SERUM Routine 03/08/2025 11:23 AM EDT DARLEEN (acute kidney injury) RHEUMATOID FACTOR Routine 03/08/2025 11: 23 AM EDT DARLEEN (acute kidney injury) PROTEINASE 3 AB PR3 Routine 03/08/2025 1 1:23 AM EDT DARLEEN (acute kidney injury) MYELOPEROXIDASE AB Routine 03/08/2025 11 :23 AM EDT DARLEEN (acute kidney injury) IMMUNOELECTROPHORESIS FOR THERAPY MONITORING Routine 03/08/2025 11:23 AM EDT DARLEEN (acute kidney injury) HEPATITIS B SURFACE ANTIGEN Routine 10/2024 11:23 AM EDT DARLEEN (acute kidney injury) HEPATITIS B SURFACE ANTIBODY QUANTITATION Routine 03/08/2025 11:23 AM EDT DARLEEN (acute kidney injury) HEPATITIS B CORE ANTIBODY, TOTAL Routine 03/08/2025 11:23 AM EDT DARLEEN (acute kidney injury) GLOMERULAR BASEMENT MEMBRANE IGG AB Routine 03/08/2025 11:23 AM EDT DARLEEN (acute kidney injury) CYTOPLASMIC NEUTROPHILIC AB (ANCA), S Routine 03/08/2025 11:23 AM EDT DARLEEN (acute kidney injury) COMPLEMENT PROFILE (C3 AND C4) Routine 03/08/2025 11:23 AM EDT DARLEEN (acute kidney injury) CK TOTAL Routine 03/08/2025 11:23 AM EDT DARLEEN (acute kidney injury) HEPATITIS C(HCV) ANTIBODY W/REFLEX TO PCR Routine 03/08/2025 11:23 AM EDT DARLEEN (acute kidney injury) WATSON SCREEN W/ REFLEX Routine 03/08/2025 11:23 AM EDT DARLEEN (acute kidney injury) XR ABDOMEN AP 1 VW Routine 01/24/2025 4: 18 PM EDT Abnormal renal function ECG 12-LEAD Routine 01/23/2025 8:57 AM EDT PM AMB POCT URINALYSIS AUTO, W/O MICROSCOPY Routine 01/11/2025 4:12 PM EDT Abnormal kidney function BASIC METABOLIC PANEL Routine 01/11/2025 4:03 PM EDT Abnormal kidney function MAMM SCREENING BILATERAL W CAD Routine 11/09/2022 11:58 AM EDT Screening mammogram for breast cancer from Last 3 Months or Most Recently Relevant to Health Maintenance Results * Ultrasound retroperitoneal complete (03/14/2025 9:28 [...] Daniella Christensen MD on 03/15/2025 1:34 PM us Lori Carter MD IMG US ORDERABLES Final Res ult * Clinical Pathology Review (03/09/2025 6:10 PM EDT) Case Report Clinical Pathology Report Case: [id number] Authorizing Provider: Lori Carter MD Collected: 03/09/20251809 Ordering Location: [facility] Received: 03/09/20251809 [place] - Lab Pathologist: Ankit Lynch MD Specimen: Blood, Venous 03/10/2025 10:05 AM EDT [facility] Final Diagnosis No monoclonal protein identified. 03/10/2025 10:05 AM EDT [facility] at 1005 EDT Venous blood / Unknown 03/09/2025 6:10 PM EDT 03/09/2025 6:10 PM EDT Lori Carter MD PATHOLOGY/CYTOLOGY ORDERABL ES Final Result [facility] [address] [place] [address], * Urine culture (clean catch) (03/09/2025 8:13 AM EDT) CULTURE RESULTS NO GROWTH AT <1000 CFU/mL 03/10/2025 10:49 AM EDT [facility] Urine Urine specimen collection, clean catch / Unknown Collection / Unknown 03/09/2025 8:13 AM EDT 03/09/2025 8:14 AM EDT Lori Carter MD MICROBIOLOGY - GENERAL ORDE RABLES Final Result [facility] [address] [place] [address], * Protein creat ratio (03/08/2025 11:32 AM EDT) URINE PROTEIN, RANDOM (MG/L) <40 <120 mg/L 03/08/2025 2:44 PM EDT [facility] URINE CREATININE,RDM 39.72 mg/dL 03/08/2025 2:44 PM EDT [facility] U/PRO/[employer] DRIVER RATIO CALC 03/08/2025 2:44 PM EDT [facility] Comment:Urine Protein / Crea tinine Ratio not calculated due to non-numeric component. Urine Urine specimen collection, clean catch / Unknown Collection / Unknown 03/08/2025 11:32 AM EDT 03/08/2025 11:32 AM EDT Lori Carter MD URINE ORDERABLES Final Resu lt Performing Organization Address City/[facility]/ZIP Co de Phone Number [facility] [address] [place] [address], * Microalbumin - Albumin: Creatinine Urine Ratio (03/08/2025 11:32 AM EDT) URINE CREATININE,RDM 39.72 mg/dL 03/08/2025 2:44 PM EDT [facility] MALB/CREAT RATIO 03/08/20 2:44 PM EDT [facility] Comment:Urine Microalbumin / Creatinine ratio not calculated due to non-numeric component. MICROALBUMIN, URINE <0.7 0.0 - 1.9 mg/dL 03/08/2025 2:44 PM EDT [facility] Urine Urine specimen collection, clean catch / Unknown Collection / Unknown 03/08/2025 11:32 AM EDT 03/08/2025 11:32 AM EDT us Lori Carter MD URINE ORDERABLES Final Resu lt [facility] [address] [place] [address], [place] [phone] * (ABNORMAL) Urinalysis (03/08/2025 11:32 AM EDT) COLOR Yellow Yellow 03/08/2025 3:45 PM EDT [facility] TURBIDITY Clear Clear 03/08/2025 3:45 PM EDT [facility] SPECIFIC GRAVITY 1.013 1.003 - 1.035 03/08/2025 3:45 PM EDT [facility] NITRITE Negative Negative 03/08/2025 3:45 PM EDT [facility] PH,URINE 5.5 5.0 - 8.5 03/08/2025 3:45 PM EDT [facility] LEUKOCYTE ESTERASE Moderate(A) Negative 03/08/2025 3:45 PM EDT [facility] PROTEIN Negative Negative 03/08/2025 3:45 PM EDT [facility] KETONES (URINE) Negative Negative 3:45 PM EDT [facility] UROBILINOGEN <1.1 eu/dL <1.1 eu/dL 03/08/2025 3:45 PM EDT [facility] BILIRUBIN (URINE) Negative Negative 03/08/2025 3:45 PM EDT [facility] BLOOD/HGB Negative Negative 03/08/2025 3:45 PM EDT [facility] CA OXALATE CRYSTALS Present(A) None 03/08/2025 3:45 PM EDT [facility] HYALINE CASTS 3(H) 0 - 2 03/08/2025 3:45 PM EDT [facility] MUCOUS Present(A) None 03/08/2025 3:45 PM EDT [facility] R.B.CELLS 0 0 - 5 03/08/2025 3:45 PM EDT [facility] LABORATORY SQUAMOUS EPITHELIUM 2 0 - 5 03/08/2025 3:45 PM EDT [facility] W.B.CELLS 7(H) 0 - 5 03/08/2025 3:45 PM EDT [facility] GLUCOSE (URINE) Negative Negative 3:45 PM EDT [facility] Urine Urine / Unknown Collection / Unknown 03/08/2025 11:32 AM EDT 03/08/2025 11:32 AM EDT Lori Carter MD URINE ORDERABLES Final Resu lt [facility] [address] [place] [address], * Cytoplasmic Neutrophilic Ab (ANCA), S (03/08/2025 11:23 AM EDT) C-ANCA Negative Negative 03/09/2025 2:09 PM EDT [facility] P-ANCA Negative Negative 03/09/2025 2:09 PM EDT [facility] Comment: Negative for cANCA and pANCA patterns by immunofluorescence. ADDITIONAL INFORMATION This test was developed and its performance characteristics determined by [facility] in a manner consistent with CLIA requirements. This test has not been cleared or approved by the U.S. Food and Drug Administration. Test Performed by: [facility] [place] [address] Time Study Engineer: Vanessa Simon Ph.D.; CLIA# [id number] Blood Venous blood / Unknown Venipuncture / Unknown 03/08/2025 11:23 AM EDT 03/08/2025 11:23 AM EDT Lori Carter MD LAB BLOOD ORDERABLES Final Result [facility] [address] [place] [address], [place] * Glomerular basement membrane IgG AB (03/08/2025 11:23 AM EDT) GBM IGG AB <0.2 <1.0 AI 03/08/2025 4:24 PM EDT [facility] Blood Venous blood / Unknown Venipuncture / Unknown 03/08/2025 11:23 AM EDT 03/08/2025 11:23 AM EDT Lori Carter MD LAB BLOOD ORDERABLES Final Result Performing Organization Address City/[facility]/ZIP Co de Phone Number [facility] [address] [place] [address], [place] [phone] * Proteinase 3 AB PR3 (03/08/2025 11:23 AM EDT) PROTEINASE 3 IGG AB <0.2 <1.0 AI 03/08/2025 4:24 PM EDT [facility] Blood Venous blood / Unknown Venipuncture / Unknown 03/08/2025 11:23 AM EDT 03/08/2025 11:23 AM EDT Lori Carter MD LAB BLOOD ORDERABLES Final Result [facility] [address] [place] [address], [place] [phone] * Myeloperoxidase AB (03/08/2025 11:23 AM EDT) MYELOPEROXIDASE AB <0.2 <1.0 AI 2024 4:24 PM EDT [facility] Blood Venous blood / Unknown Venipuncture / Unknown 03/08/2025 11:23 AM EDT 03/08/2025 11:23 AM EDT Lori Carter MD LAB BLOOD ORDERABLES Final Result [facility] [address] [place] [address], [place] [phone] * Complement profile (C3 AND C4) (03/08/2025 11:23 AM EDT) COMPLEMENT C3 123 86 - 184 mg/dL 03/08/2025 2:50 PM EDT [facility] COMPLEMENT C4 26 16 - 47 mg/dL 03/08/2025 2:50 PM EDT [facility] Blood Venous blood / Unknown Venipuncture / Unknown 03/08/2025 11:23 AM EDT 03/08/2025 11:23 AM EDT Lori Carter MD LAB BLOOD ORDERABLES Final Result Performing Organization Address City/[facility]/ZIP Co de Phone Number [facility] [address] [place] [address], [place] [phone] * Hepatitis C(HCV) Ab w/ Reflex to PCR (03/08/2025 11:23 AM EDT) ANTI HCV W/PCR REFLX Non-Reacti ve Non-Reacti ve 03/08/2025 3:39 PM EDT [facility] Comment: If recent infection suspected, recommend repeat testing (>2 months). Jscwxo-lo-oesiin ratio is <1.0. Blood Venous blood / Unknown Venipuncture / Unknown 03/08/2025 11:23 AM EDT 03/08/2025 11:23 AM EDT Lori Carter MD LAB BLOOD ORDERABLES Final Result [facility] [address] [place] [address], [place] [phone] * Hepatitis B core antibody, total (03/08/2025 11:23 AM EDT) ANTI HBC Non-Reacti ve Non-Reacti ve 03/08/2025 3:29 PM EDT [facility] Blood Venous blood / Unknown Venipuncture / Unknown 03/08/2025 11:23 AM EDT 03/08/2025 11:23 AM EDT Lori Carter MD LAB BLOOD ORDERABLES Final Result [facility] [address] [place] [address], * Hepatitis B Surface Antibody Quantitation (03/08/2025 11:23 AM EDT) Pathologist [facility] ANTI HBS QUANT. 5.0 mIU/mL 03/08/2025 3:43 PM EDT [facility] Blood Venous blood / Unknown Venipuncture / Unknown 03/08/2025 11:23 AM EDT 03/08/2025 11:23 AM EDT Narrative [facility] - 03/08/2025 3:43 PM EDT Vaccinated: >=10 mIU/mL, Positive (Immune) Unvaccinated: <10 mIU/mL, Negative (Not Immune) Lori Carter MD LAB BLOOD ORDERABLES Final Result [facility] [address] [place] [address], * Hepatitis B surface antigen (03/08/2025 11:23 AM EDT) HEPATITIS B SURF AG Non-Reacti ve Non-Reacti ve 03/08/2025 3:34 PM EDT [facility] Blood Venous blood / Unknown Venipuncture / Unknown 03/08/2025 11:23 AM EDT 03/08/2025 11:23 AM EDT us Lori Carter MD LAB BLOOD ORDERABLES Final Result [facility] [address] [place] [address], [place] [phone] * CBC without diff (03/08/2025 11:23 AM EDT) WBC 6.2 4 - 11 x10E9/L 03/08/2025 1:49 PM EDT [facility] RBC Count 4.27 3.8 - 5.2 X10E12/L 03/08/2025 1:49 PM EDT [facility] Hemoglobin 12.4 11.7 - 15.5 g/dL 03/08/2025 1:49 PM EDT [facility] Hematocrit 37.3 35 - 47 % 03/08/2025 1:49 PM EDT [facility] MCV 88 80 - 100 fL 03/08/2025 1:49 PM EDT [facility] MCH 29.1 27 - 34 pg 03/08/2025 1:49 PM EDT [facility] MCHC 33.2 32 - 36 g/dL 03/08/2025 1:49 PM EDT [facility] RDW 14.5 11.5 - 15 % 03/08/2025 1:49 PM EDT [facility] Platelet Count 226 150 - 450 X10E9/L 03/08/2025 1:49 PM EDT [facility] MPV 8.3 7 - 12 fL 03/08/2025 1:49 PM EDT [facility] Blood Venous blood / Unknown Venipuncture / Unknown 03/08/2025 11:23 AM EDT 03/08/2025 11:23 AM EDT us Lori Carter MD LAB BLOOD ORDERABLES Final Result [facility] [address] [place] [address], [place] [phone] * Rheumatoid factor (03/08/2025 11:23 AM EDT) RHEUMATOID FACTOR <10 <20 IU/mL 03/08/2025 2:50 PM EDT [facility] Blood Venous blood / Unknown Venipuncture / Unknown 03/08/2025 11:23 AM EDT 03/08/2025 11:23 AM EDT Lori Carter MD LAB BLOOD ORDERABLES Final Result [facility] [address] [place] [address], * (ABNORMAL) Immunoelectrophoresis for Therapy Monitoring (03/08/2025 11:23 AM EDT) IGA 230 68 - 378 mg/dL 03/11/2025 8:54 AM EDT [facility] IGG 962 635 - 1,741 mg/dL 03/11/2025 8:54 AM EDT [facility] IGM 94 45 - 281 mg/dL 03/11/2025 8:54 AM EDT [facility] FREE KAPPA LT CHAINS 2.30(H) 0.33 - 1.94 mg/dL 03/11/2025 8:54 AM EDT [facility] Immune Profile Interpretation See Pathology Report 03/11/2025 8:54 AM EDT [facility] FREE LAMBDA LT CHAINS 1.85 0.57 - 2.63 mg/dL 03/11/2025 8:54 AM EDT [facility] FREE JAVIER/LAMBD RATIO 1.24 0.26 - 1.65 03/11/2025 8:54 AM EDT [facility] Blood Venous blood / Unknown Venipuncture / Unknown 03/08/2025 11:23 AM EDT 03/08/2025 11:23 AM EDT Lori Carter MD LAB BLOOD ORDERABLES Final Result [facility] [address] [place] [address], * WATSON Screen w/ Reflex (03/08/2025 11:23 AM EDT) WATSON SCREEN W/REFLEX Negative Negative 03/08/2025 4:23 PM EDT [facility] Blood Venous blood / Unknown Venipuncture / Unknown 03/08/2025 11:23 AM EDT 03/08/2025 11:23 AM EDT Narrative [facility] - 03/08/2025 4:23 PM EDT Testing performed using multiplex flow immunoassay. Eleven difference antigens associated with systemic autoimmunie diseases (dsDNA, Sm, Sm/SOFTWARE DEVELOPER INTERN, SOFTWARE DEVELOPER INTERN, Chromatin, SSA, SSB, Codie-1, Sc170, Ribo P, Centromere B) are included in this sreening tests. Lori Carter MD LAB BLOOD ORDERABLES Final Result [facility] [address] [place] [address], * Protein electrophoresis, serum (03/08/2025 11:23 AM EDT) Pathologist [facility] TOTAL PROTEIN 6.8 6.0 - 8.0 g/dL 03/09/2025 5:47 PM EDT [facility] ALPHA 1 GLOBULIN 0.3 0.1 - 0.4 g/dL 03/09/2025 5:47 PM EDT [facility] ALPHA 2 GLOBULIN 0.7 0.4 - 1.1 g/dL 03/09/2025 5:47 PM EDT [facility] BETA GLOBULIN 0.9 0.5 - 1.2 g/dL 03/09/2025 5:47 PM EDT [facility] GAMMA GLOBULIN 0.9 0.5 - 1.6 g/dL 03/09/2025 5:47 PM EDT [facility] Protein Electrophoresis Interp Unremarkable protein distribution, no monoclonal bands 03/09/2025 5:47 PM EDT [facility] Albumin 4.1 3.4 - 5.3 g/dL 03/09/2025 5:47 PM EDT [facility] Blood Venous blood / Unknown Venipuncture / Unknown 03/08/2025 11:23 AM EDT 03/08/2025 11:23 AM EDT Lori Carter MD LAB BLOOD ORDERABLES Final Result [facility] [address] [place] [address], [place] [phone] * Phosphorus (03/08/2025 11:23 AM EDT) PHOSPHORUS 4.0 2.4 - 4.9 mg/dL 03/08/2025 2:50 PM EDT [facility] Blood Venous blood / Unknown Venipuncture / Unknown 03/08/2025 11:23 AM EDT 03/08/2025 11:23 AM EDT Lori Carter MD LAB BLOOD ORDERABLES Final Result [facility] [address] [place] [address], [place] [phone] * Magnesium (03/08/2025 11:23 AM EDT) MAGNESIUM 2.2 1.8 - 2.6 mg/dL 03/08/2025 2:50 PM EDT [facility] Blood Venous blood / Unknown Venipuncture / Unknown 03/08/2025 11:23 AM EDT 03/08/2025 11:23 AM EDT us Lori Carter MD LAB BLOOD ORDERABLES Final Result [facility] [address] [place] [address], * CK Total (03/08/2025 11:23 AM EDT) CPK 42 24 - 170 U/L 03/08/2025 2:50 PM EDT [facility] Blood Venous blood / Unknown Venipuncture / Unknown 03/08/2025 11:23 AM EDT 03/08/2025 11:23 AM EDT us Lori Carter MD LAB BLOOD ORDERABLES Final Result [facility] [address] [place] [address], * (ABNORMAL) Basic Metabolic Panel (03/08/2025 11:23 AM EDT) Only the most recent of2 resultswithin the time period is included. Pathologist [facility] SODIUM 142 134 - 146 mmol/L 03/08/2025 2:50 PM EDT [facility] POTASSIUM 3.8 3.5 - 5.0 mmol/L 03/08/2025 2:50 PM EDT [facility] CHLORIDE 100 98 - 109 mmol/L 03/08/2025 2:50 PM EDT [facility] CARBON DIOXIDE 31 22 - 32 mmol/L 03/08/2025 2:50 PM EDT [facility] ANION GAP 11 5 - 15 mmol/L 03/08/2025 2:50 PM EDT [facility] BLOOD UREA NITROGEN 25(H) 5 - 23 mg/dL 03/08/2025 2:50 PM EDT [facility] CREATININE 0.93 0.40 - 1.00 mg/dL 03/08/2025 2:50 PM EDT [facility] Comment:METHOD TRACEABLE TO IDMS STANDARD GLUCOSE 90 65 - 99 mg/dL 03/08/2025 2:50 PM EDT [facility] CALCIUM 9.6 8.5 - 10.5 mg/dL 03/08/2025 2:50 PM EDT [facility] EGFR Non-Race Dependent 71 >=60 ml/min/1.7 3sq.m 03/08/2025 2:50 PM EDT [facility] Comment: Reported eGFR is based on the CKD-EPI 2020 equation that does not use a race coefficient. Blood Venous blood / Unknown Venipuncture / Unknown 03/08/2025 11:23 AM EDT 03/08/2025 11:23 AM EDT us Lori Carter MD LAB BLOOD ORDERABLES Final Result [facility] [address] [place] [address], [place] [phone] * X-ray abdomen ap 1 view (01/24/2025 4:18 PM EDT) Anatomical Region Laterality Modality Body, Abdomen N/A Computed Radiogr aphy 01/26/2025 3:58 PM EDT Narrative 01/26/2025 3:59 PM EDT PROCEDURE: A single supine radiograph of the abdomen was obtained. INDICATION: Abnormal renal function . COMPARISON: None. FINDINGS/IMPRESSION: No radiographic evidence of renal stones. Bowel Gas Pattern: No radiographic evidence of dilated bowel. Please note that pneumoperitoneum cannot be reliably assessed on supine radiographs. Surgical Changes, Devices, Tubes, and Lines: Surgical clips. Surgical suture line of the right upper and left upper quadrant. Partially imaged cardiac leads overlie the right atrium and right ventricle. Phleboliths. Scattered osseous degenerative changes. Finalized by Daniella Christensen MD on 01/26/2025 3:59 PM Procedure Note Daniella Christensen MD - 01/26/2025 PROCEDURE: A single supine radiograph of the abdomen was obtained. INDICATION: Abnormal renal function . COMPARISON: None. FINDINGS/IMPRESSION: No radiographic evidence of renal stones. Bowel Gas Pattern: No radiographic evidence of dilated bowel. Please note that pneumoperitoneum cannot be reliably assessed on supineradiographs. Surgical Changes, Devices, Tubes, and Lines: Surgical clips. Surgicalsuture line of the right upper and left upper quadrant. Partially imagedcardiac leads overlie the right atrium and right ventricle. Phleboliths. Scattered osseous degenerative changes. Finalized by Daniella Christensen MD on 01/26/2025 3:59 PM Maci Winslow APRN-GEAR [employer]ICKER IMG DIAGNOSTIC IMAGING O RDERABLES Final Result * ECG 12 lead (01/23/2025 8:57 AM EDT) us Not In System Ref Prov ECG ORDERABLES Final Res ult Performing Organization Address [facility] Co de Phone Number MANUALLY TRANSCRIBED RESULTS * POCT Urinalysis Auto, W/O Microscopy (01/11/2025 4:12 PM EDT) External Poct Urine Color yellow MANUALLY TRANSCRIBED RESULTS External Poct Urine Appearance clear MANUALLY TRANSCRIBED RESULTS External Poct Urine Glucose Negative MANUALLY TRANSCRIBED RESULTS External Poct Urine Bilirubin Negative MANUALLY TRANSCRIBED RESULTS External Poct Urine Ketones Negative MANUALLY TRANSCRIBED RESULTS External Poct Urine Specific [place] 1.010 MANUALLY TRANSCRIBED RESULTS External Poct Urine Blood Negative MANUALLY TRANSCRIBED RESULTS External Poct Urine Ph 5.5 MANUALLY TRANSCRIBED RESULTS External Poct Urine Protein Negative MANUALLY TRANSCRIBED RESULTS External Poct Urine Urobilinogen 0.2 MANUALLY TRANSCRIBED RESULTS External Poct Urine Nitrite Negative MANUALLY TRANSCRIBED RESULTS External Poct Urine Leukocyte Esterase Negative MANUALLY TRANSCRIBED RESULTS Urine 01/11/2025 4:12 PM EDT Maci Winslow [facility] POINT OF CARE TEST ORDER LD Final Result Performing Organization Address [facility] de Phone Number MANUALLY TRANSCRIBED RESULTS * Mammography screening bilateral with CAD (11/09/2022 11:58 AM EDT) Anatomical Region Laterality Modality Breast Bilateral Mammography 11/10/2022 9:02 AM EDT Narrative 11/10/2022 9:04 AM EDT MAMM SCREENING BILATERAL W CAD WITH TOMOSYNTHESIS HISTORY: Screening. Screening mammogram for breast cancer COMPARISON: New Baseline FINDINGS: There are scattered areas of fibroglandular density. Negative for malignancy. Computer-aided detection was used in the interpretation of this examination. IMPRESSION: BIRADS 1 - Negative. Normal interval follow-up in 12 months. OVERALL ASSESSMENT- NEGATIVE. A letter of notification will be sent to the patient regarding the results. Finalized by Edmundo Hyman MD on 11/10/2022 9:04 AM 1 b MAMM 1 YR Procedure Note Edmundo Hyman MD - 11/10/2022 MAMM SCREENING BILATERAL W CAD WITH TOMOSYNTHESIS HISTORY: Screening. Screening mammogram for breast cancer COMPARISON: New Baseline FINDINGS: There are scattered areas of fibroglandular density. Negativefor malignancy. Computer-aided detection was used in the interpretation of thisexamination. IMPRESSION: BIRADS 1 - Negative. Normal interval follow-up in 12 months. OVERALL ASSESSMENT- NEGATIVE. A letter of notification will be sent to the patient regarding theresults. Finalized by Edmundo Hyman MD on 11/10/2022 9:04 AM 1 b MAMM 1 YR Maci Winslow WAITER/WAITRESS BUFFET-[employer] IMG MAMMOGRAPHY ORDERABL ES Final Result from Last 3 Months or Most Recently Relevant to Health Maintenance Insurance [place] [facility] [place] [facility] [place] MEDICARE Care Teams Brim Raiser Relationship Specialty Start Date End Date Holland Lyons DO [address] [facility], [place] [address] PCP - General Family Medicine 06/13/19
--- OUTSIDE RECORDS SUMMARY | 2025-03-19 12:32 | XMS_ITS | Encounter Summary ---
Author Organization [facility] Address [address] [place] [id number] Care Team Providers Care Business Office Director Name Role Phone Holland Lyons DO Primary Care Provider Source Comments In the event this information is protected by the Federal Confidentiality of Alcohol and Drug AbusePatient Records regulations: The Federal rules restrict any use of the information to criminally investigate or prosecute any alcohol or drug abuse patient.[facility] Encounter Details Date Type Department Care Team (Late st Contact Info) Description 01/20/2018 Get Medical Advice Rheumatology [address] [place] [address] Carlos Alberto Monge (Fel)(Hist) [address] [place] [address] RE: Upcoming Appointment Question Social History Tobacco Use Types Packs/Day [...] documented as of this encounter Care Teams Business Office Director Relationship Specialty Start Date End Date Holland Lyons DO [address] [place] [address] PCP - General Family Medicine 03/06/16 documented as of this encounter
--- OUTSIDE RECORDS SUMMARY | 2025-03-19 12:32 | XMS_ITS | Encounter Summary ---
Author Organization [facility] Address [id number] [place] [address] Care Team Providers Care Hot Mix Operator Name Role Phone SerenaHolland Jojo HARVEY Primary Care Provider [phone] Encounter Details Date Type Department Care Team (Late st Contact Info) Description 08/28/2024 Telephone [facility] Internal Medicine - Family Medicine [address] [place] [id number] Alisa Huff, ELAYNE Social History Tobacco Use [...] often do you attend chur ch or lutheran services? More than 4 times per year 12/22/2022 Do you belong to any clubs o r organizations such as restorationism groups, unions, fraternal or athletic groups, or [...] PHQ-2 Answer Date Recorded Total Score 0 08/31/2024 [facility] - Occupational Stress Questionnaire Answer Date Recorded [...] Recorded Do you need help finding a [facility] career center and/or a training program? No 12/22/2022 Hunger Screening Answer Date Recorded Within the past 12 months we worried whether our food would run out before we got money to buy more. Never True 08/31/2024 Within the past 12 months th e food we bought just didn't last and we didn't have money to get more. Never True 08/31/2024 Purpose - Life Answer Date Recorded I [...] Telephone Encounter - Alisa Huff CMA - 08/28/2024 9:54 AM EST Pt called she would like to have her labs done before her appt , can you send those to [facility]? documented in this encounter Plan of Treatment Upcoming Encounters Date Type Department Care Team (Late st Contact Info) Description 04/18/2025 3:40 PM EDT Office Visit [facility] [place] [address] [facility] [address] [place] [phone] Griselda Moore, [employer] COMMUNICATIONS FACULTY MEMBER-BOTTLE LABELER [address], [facility] [address] [place] [address] 11/08/2025 2:00 PM EDT Office Visit [facility] Internal Medicine - Family Medicine [address] [place] [address] documented as of this encounter Visit Diagnoses Not on filedocumented in this encounter Additional Health Concerns Assessment Noted Time PHQ-9 Depression Total Score: 0 03/03/20 24 9:23 AM EDT documented as of this encounter Care Teams Hot Mix Operator Relationship Specialty Start Date End Date Holland Lyons DO [address] [place] [address] PCP - General Family Medicine 06/13/19 documented as of this encounter
--- OUTSIDE RECORDS SUMMARY | 2025-03-19 12:32 | XMS_ITS | Encounter Summary ---
Author Organization [facility] tem Address [id number] [address] [place] [address] Care Team Providers Care Side Seam Machine Operator Name Role Phone Holland Lyons DO Primary Care Provider [phone] Encounter Details Date Type Department Care Team (Late st Contact Info) Description 06/23/2024 Orders Only [facility] - Family Medicine [address] [place] [address] Holland Lyons DO [address], [facility] [place] [address] Social History Tobacco Use Types Packs/Day Years [...] often do you attend chur ch or mandaeism services? More than 4 times per year 12/22/2022 Do you belong to any clubs o r organizations such as gnosticism groups, unions, fraternal or athletic groups, or [...] Answer Date Recorded Total Score 0 03/03/2024 [facility] - Occupational [...] Recorded Do you need help finding a [facility] career center and/or a training [...] EDT Office Visit [facility] [place] [address] [facility] [address] [place] [id number] Griselda Moore, FLOOR NURSE-JEWELRY BENCH MOLDER [address], [facility] [address] [place] [address] 11/08/2025 2:00 PM EDT Office Visit [facility] - Family Medicine [address] [place] [id number] documented as of this encounter Visit Diagnoses Not on filedocumented in this encounter Additional Health Concerns Assessment Noted Time PHQ-9 Depression Total Score: 0 03/03/20 24 9:23 AM EDT documented as of this encounter Care Teams Side Seam Machine Operator Relationship Specialty Start Date End Date Holland Lyons DO [address] [place] [address] PCP - General Family Medicine 06/13/19 documented as of this encounter
--- OUTSIDE RECORDS SUMMARY | 2025-03-19 12:32 | XMS_ITS | Clinical Summary ---
Author Organization [facility] Address [address] [place] [address] Care Team Providers Care Compliance Representative Dealer Name Role Phone Holland Lyons DO Primary Care Provider [phone] Allergies Active Allergy Reactions Criticality Noted Date Comments Anesthetics - Amide Type - Select Amino Amides Unknown 08/29/2020 Cephalexin Hives,Other 09/18/2016 Other reaction(s): Other: See Comments Peeling of skin Peeling of skin. Has received multiple courses of piperacillin/tazobactam without noted reaction inpatient. Clarithromycin Unknown 06/08/2019 Codeine Anaphylaxis High 07/11/2012 Tolerated hydromorphone 03/2022 Iodinated Contrast Media Unknown 08/29/2020 Sulfamethoxazole Rash Low 10/06/2022 Tramadol Other 01/12/2023 Trimethoprim Rash Low 10/06/2022 Medications famotidine (Pepcid) 20 mg tablet Take 20 mg by mouth in the morning. Active CALCIUM CITRATE, BULK, MISC 1,500 mg in the morning. Active levothyroxine (Synthroid, Levoxyl) 125 mcg tabletIndications: Hypothyroidism, unspecified type Take 1 tablet (125 mcg) by mouth before breakfast for 97 doses. 12/18/19 24 Active Additional Information Patient not taking.Reported on 03/19/2025 multivitamin tablet Take 1 tablet by mouth in the morning. Active furosemide (Lasix) 40 mg tabletIndications: Edema, unspecified type Take 1 tablet (40 mg) by mouth two times daily. 180 tablet 3 08/10/19 25 026 Active Additional Information Patient taking differently:40 mg oralDaily, Reported on 03/19/2025 spironolactone (Aldactone) 25 mg tabletIndications: Edema, unspecified type Take 1 tablet (25 mg) by mouth in the morning. 90 tablet 3 09/06/19 25 026 Active Additional Information Patient not taking.Reported on 03/19/2025 pravastatin (Pravachol) 20 mg tabletIndications: Hyperlipidemia, unspecified hyperlipidemia type Take 1 tablet (20 mg) by mouth at bedtime. 90 tablet 3 09/20/19 25 026 Active levothyroxine (Synthroid, Levoxyl) 112 mcg tabletIndications: Paroxysmal atrial fibrillation (CMS/HCC),Other specified hypothyroidism Take 1 tablet (112 mcg) by mouth before breakfast. 90 tablet 3 10/17/19 25 026 Active flecainide (Tambocor) 100 mg tabletIndications: Paroxysmal atrial fibrillation (CMS/HCC) Take 1 tablet (100 mg) by mouth two times daily. 180 tablet 3 11/22/19 25 026 Active Additional Information Patient not taking.Reported on 03/19/2025 aspirin 81 mg EC tablet Take 81 mg by mouth in the morning. Active metoprolol succinate XL (Toprol-XL) 25 mg 24 hr tabletIndications: SVT (supraventricular tachycardia) Take 1 tablet (25 mg) by mouth once daily as directed. Do not crush or chew. 90 tablet 3 12/19/19 25 026 Active apixaban (Eliquis) 5 mg tabletIndications: Paroxysmal atrial fibrillation (CMS/HCC) Take 1 tablet (5 mg) by mouth two times daily. 180 tablet 3 02/16/20 25 026 Active isosorbide mononitrate ER (Imdur) 30 mg 24 hr tabletIndications: Other chest pain Take 1 tablet (30 mg) by mouth once daily as directed. Do not crush or chew. 90 tablet 3 12/13/19 25 025 Discontin ued(Ineff ective) Active Problems Problem Noted Date Diagnosed Date Kidney stone 08/10/2024 Ureteral stone with hydronephrosis 08/10/2024 Pacemaker 04/16/2024 Adhesive capsulitis of left shoulder 03/03/2024 Tear of left rotator cuff 03/03/2024 Acute pain of left shoulder 02/21/2024 Calcific tendonitis of left shoulder 02/21/2024 Sinus node dysfunction 12/30/2023 Palpitations 12/16/2023 Closed nondisplaced fracture of anterior process of right calcaneus 10/05/2023 10/12/2023 Postmenopausal 10/05/2023 10/12/2023 Chest pain, rule out acute myocardial infarction 08/25/2023 08/25/2023 NSTEMI (non-ST elevated myocardial infarction) 0 08/25/2023 08/25/2023 Chronic abdominal wound infection, sequela 06/2907/06/2023 Abdominal wall fluid collections 05/03/2023 05/31/2023 Chronic eczema of hand 01/06/2023 Hypertriglyceridemia 01/06/2023 01/06/2023 Obesity 01/06/2023 01/06/2023 Vitamin D deficiency 01/06/2023 01/06/2023 Tinea pedis 01/06/2023 01/06/2023 Acute postoperative pain 12/31/2022 023 Overview (01/06/2023): Last Assessment & Plan: Assessment: Presents in NAD. Pain controlled on exam. Plan: - D/C RES HABILITATION ASSISTANT today - Gabapentin BID - ATC tylenol S/P repair of ventral hernia 12/31/202211/2022 Overview (01/06/2023): Last Assessment & Plan: Assessment: POD 2 s/p mesh excision, bilateral TAR and ventral hernia repair with mesh placement with Dr. Dalton. [facility]. Plan: - Advance to GIS diet - Continue bowel regimen - PRN antiemetics - Keep hager catheter today - DVT ppx - continue SQH q8h - D/C mIVF - Wean o2 as able - Daily labs while in house - replete lytes PRN - PT/OT consult - Dispo: RNF SVT (supraventricular tachycardia) 12/17/2022 Overview (01/06/2023): Last Assessment & Plan: Assessment: HR stable 60-70 BPM. Plan: - Continue metop - hold parameters in place Assessment & Plan (01/10/2023 10:16 PM EDT): - 30 Day event monitor - CHADVASC 1, for now we will have her continue her aspirin Former smoker 12/16/2022 01/06/2023 Overview (01/06/2023): Last Assessment & Plan: Assessment: Former smoker 15 years 1/2 PPD. Quit 25 years ago. Plan: - Encourage smoking cessation Gastroesophageal reflux disease without esophagi tis 12/16/2022 01/06/2023 Overview (01/06/2023): Last Assessment & Plan: Plan: - Continue home pepcid History of coronary vasospasm 12/16/2022 Overview (01/06/2023): Last Assessment & Plan: Assessment: On pravastatin, metoprolol and ASA Plan: - Continue metoprolol - Continue pravastatin - Discuss with staff when to resume ASA History of non-ST elevation myocardial infarctio n (NSTEMI) 12/16/2022 01/06/2023 Overview (01/06/2023): Last Assessment & Plan: Assessment: LHC 09/17/22 without blockages. Started on aspirin. 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 Received 3L crystalloid in ED PLAN: - Volume replacement in TPN Last Assessment & Plan: Assessment: Presented to ED with lightheadedness, fevers, tachycardia. Received 3L crystalloid in ED PLAN: - Volume replacement in TPN Gastric perforation 12/13/2021 01/06/2023 Overview (01/06/2023): Last Assessment & Plan: Assessment: Underwent lap sleeve gastrectomy in October 2020 complicated by chronic leak managed with drains and most recently endoscopic ablation and suturing. Now transfer from OSH for perforation. PLAN: - Broad spectrum abx with meropenem, diflucan - Blood cultures x2 pending - Neg x 2 days - general surgery following, rec non-operative management for now Last Assessment & Plan: Assessment: Underwent lap sleeve gastrectomy in October 2020 complicated by chronic leak managed with drains and most recently endoscopic ablation and suturing. Now transfer from OSH for perforation. PLAN: - Broad spectrum abx with meropenem, diflucan - Blood cultures x2 pending - Neg x 2 days - general surgery following, rec non-operative management for now Mild protein-calorie malnutrition 12/13/2021 01/06/2023 Overview (01/06/2023): Last Assessment & Plan: Assessment: Malnutrition PLAN: - Nutrition following - Continue TPN Last Assessment & Plan: Assessment: Malnutrition PLAN: - Nutrition following - Continue TPN On total parenteral nutrition (TPN) 12/13/2021 01/06/2023 Overview (01/06/2023): Last Assessment & Plan: Assessment: on TPN chronically via PICC. PLAN: - Nutrition following - Continue TPN - NPO for now (was on soft diet at home) Shortness of breath 08/29/2020 01/06/2023 Abnormal cardiovascular stress test 06/19/2019 01/06/2023 Overview (01/06/2023): Added automatically from request for surgery [id number] Essential hypertension 06/13/2019 Overview (01/06/2023): Last Assessment & Plan: Assessment: SBP in 90-100. On metoprolol at home - stated she only takes 12.5 mg . Plan: - Continue metoprolol - hold for SBP < 100 and HR < 60 Assessment & Plan (01/10/2023 10:16 PM EDT): - stable, continue medication Keratoderma 04/28/2018 01/06/2023 Arthralgia of multiple joints 08/23/2017 History of uveitis 08/23/2017 01/06/2023 Arthritis 07/04/2017 01/06/2023 Overview (01/06/2023): New onset Joint pain and swelling of [...] subc utaneous tissue after non-dermatologic procedure 02/08/2017 01/06/2023 Abdominal wall seroma 01/27/2017 01/06/2023 Overview (01/06/2023): Abdominal wall seroma secondary to abdominoplasty for ventral hernia S/p wound vac now with wet to dry dressing Plan: Daily dressing change Wound care consult COPD (chronic obstructive pulmonary disease) 01/06/2023 Overview (01/06/2023): COPD on anoro-ellipta and albuterol prn Stale, no SOB wheezing Plan: Continue home meds Last Assessment & Plan: Assessment: inhaler as needed. Stable Last Assessment & Plan: Assessment: Not on medications at home. Follows with PCP. On 2 L NC with Spo2 of 98% on 2 L NC Plan: - Wean o2 as able - PRN albuterol for SOB Edema 06/23/2016 01/06/2023 Overview (01/06/2023): EF 64% in 2016 NO cardiac history ON furosemide for b/l LE edema Plan: Monitor I and O Continue home furosemide dose BMP - monitor electrolytes and creatinine. Hypothyroid 06/23/2016 01/06/2023 Overview (01/06/2023): ON levothyroxine 200 mcg Plan: TSH Continue home meds Last Assessment & Plan: Assessment: stable Last Assessment & Plan: Assessment: On synthroid at home. Plan: - Continue home synthroid - F/u with PCP Obstructive sleep apnea syndrome 06/23/2016 01/06/2023 Overview (01/06/2023): Last Assessment & Plan: Assessment: Reports that this has improved since weight loss. Plan: - F/u with PCP on discharge Other plastic surgery for unacceptable cosmetic appearance 07/18/2012 01/06/2023 Vasospastic angina Assessment & Plan (01/10/2023 10:15 PM EDT): -Stable - angiographically normal cath 09/2022 likely related to vasospasm - continue aspirin, pravastatin, metoprolol Resolved Problems Problem Noted Date Diagnosed Date Resolved Date Obesity, Class I, BMI 30-34.9 12/13/2021 01/06/2023 09/17/2024 Overview (01/06/2023): Last Assessment & Plan: Assessment: PLAN: Obesity, Class III, BMI 40-4 9.9 (morbid obesity) 11/27/2016 01/06/2023 09/17/2024 Overview (01/06/2023): BMI 52.90 Encounters Date Type Department Care Team Description 03/19/2025 11:20 AM EDT Office Visit [facility] [address] [place] [address] Aldo Wright CNP Sinus node dysfunction (CMS/HCC) (Primary Dx); Cardiac pacemaker in situ; AV nancy re-entry tachycardia; Paroxysmal atrial fibrillation (CMS/HCC); Palpitations; Chronic heart failure with preserved ejection fraction (CMS/HCC); Pulmonary HTN (CMS/HCC); Primary hypertension 03/08/2025 12:30 PM EDT Ancillary Procedure [facility] [address] [place] [address] Adjustment and management of cardiac pacemaker 03/08/2025 Orders Only [facility] [address] [place] [address] Adrian Ibrahim MD 02/15/2025 Refill [facility] [address] [place] [facility] [place] [phone] Diana Guillermo MA Paroxysmal atrial fibrillation ([facility]/HCC) 01/04/2025 Telephone [facility] [address] [place] [phone] Lorri Garcia MA 12/18/2024 Refill [facility] [address] [place] [facility] [place] [address] Diana Guillermo MA SVT (supraventricular tachycardia) from Last 3 Months Family History Medical History Relation Name Comments pacemaker Father Heart failure Mother Hyperlipidemia Mother Relation Name Status Comments Brother Alive Father Mother Sister Alive Social History Tobacco Use Types Packs/Day Years Used Date Smoking Tobacco: Former Cigarettes Q uit: 2000 Smokeless Tobacco: Never Tobacco Cessation:Counseling Given: Not Answered Alcohol Use Standard Drinks/Week Comments Not Currently 0 (1 standard drink = 0.6 oz pur e alcohol) [facility] Utilities Answer Date Recorded In the past 12 months has [employer], oil, or water [employer] threatened to shut off services in your [...] place to sleep or slept in a chcf (including now)? No 12/16/2023 Hunger Vital Sign [...] Heterosexual or Straight 10/2024 1:41 PM EDT Last Filed Vital Signs Vital Sign Reading Time Taken Comments Blood Pressure 98/66 03/19/2025 11:37 AM EDT Pulse 61 03/19/2025 11:37 AM EDT Temperature 36.6 C (97.8 F) 12/18/2023 12:10 PM EDT Respiratory Rate 11 02/07/2024 1:15 PM EDT Oxygen Saturation 97% 03/19/2025 11:37 AM EDT Inhaled Oxygen Concentration - - Weight 64.9 kg (143 lb) 03/19/2025 11:37 AM EDT Height 160 cm (5' 3 ) 03/19/2025 11:37 AM EDT Body Mass Index 25.33 03/19/2025 11:37 AM EDT Plan of Treatment Upcoming Encounters Date Type Department Care Team (Late st Contact Info) Description 04/10/2025 11:30 AM EDT Ancillary Procedure [facility] [address] [place] [facility] [place] [phone] 06/19/2025 9:15 AM EST Office Visit [facility] [address] [place] [facility] [place] [address] Adrian Ibrahim MD [address] [place] [address] Health Maintenance Due Date Last Done Comments CT Colonography 1966 Colonoscopy 1966 Colorectal Cancer Screening 1966 FIT-DNA 1966 FIT 1966 FOBT 1966 Medicare Annual Wellness (AWV) 1966 Sigmoidoscopy 1966 Depression Screening 1978 Hepatitis B Vaccines (1 of 3 - 19+ 3-dose series) 1985 Pap Smear 1987 Cervical Cancer Screening 1996 HPV/Cotest 1996 Mammogram 11/09/2024 11/09/2022 COVID-19 Vaccine ( season) 2025 04/20/2022, 04/20/2022, 05/06/2021, Additional history exists Influenza Vaccine (#1) 2025 , 04/13/2022, 06/03/2021, Additional history exists Pneumococcal Vaccine: Pediatrics (0 to 5 Years) and At-Risk Patients (6 to 64 Years) (3 of 3 - PCV20 or PCV21) 06/03/2026 06/03/2021, 05/22/2016, 05/22/2016 Adult Tetanus 06/16/2032 06/16/2022 Zoster Vaccines Completed 06/16/2022, 04/13/2022 HIB Vaccines Aged Out No longer eligi ble based on patient's age to complete this topic HPV Vaccines Aged Out No longer eligi ble based on patient's age to complete this topic IPV Vaccines Aged Out No longer eligi ble based on patient's age to complete this topic Meningococcal B Vaccine Aged Out No l onger eligible based on patient's age to complete this topic Meningococcal Vaccine Aged Out No woo [place] eligible based on patient's age to complete this topic Rotavirus Vaccines Aged Out No longer eligible based on patient's age to complete this topic Medical Devices Implanted Type Area Docking Saw Operator Device Identifier Shelf Expiration Date Model / Serial / Lot Ingevity+ Is-1 Bi Positive Fix Ra/Rv 52cm Implanted:Qty: 1 on 02/07/2024 by Adrian Ibrahim MD at [facility] Lead [employer] [id number] 10/21/2025 [id number] / [id number] / Ingevity+ Is-1 Bi Positive Fix Ra/Rv 45cm Implanted:Qty: 1 on 02/07/2024 by Adrian Ibrahim MD at [facility] Lead [employer] [id number] 12/21/2025 [id number] / [id number] / Pacer,Accolade ,Mri Dr Acosta - [id number] - [id number] Implanted:Qty: 1 on 02/07/2024 by Adrian Ibrahim MD at [facility] Pacemaker [employer] [id number] 12/02/2025 [id number] / [id number] / Procedures Procedure Name Priority Date/Time Associated Diagnosis Comments CARDIAC DEVICE CHECK CHECK - REMOTE Routine 03/12/2025 10:11 AM EDT Adjustment and management of cardiac pacemaker CARDIAC DEVICE CHECK - REMOTE - PACEMAKER Routine 03/08/2025 12:00 AM EDT from Last 3 Months Results * CARDIAC DEVICE CHECK - REMOTE - PACEMAKER (03/12/2025 10:11 AM EDT) Adrian Ibrahim MD CV IMPLANTABLE CARDIAC DEVICE PA OCEDURES Final Result CPACS * Cardiac device check - Remote pacemaker (03/08/2025 12:00 AM EDT) Anatomical Region Laterality Modality Other 03/08/2025 Adrian Ibrahim MD CV IMPLANTABLE CARDIAC DEVICE PA OCEDURES Final Result from Last 3 Months Insurance MEDICAID [place] [employer] [place] [address] MEDICAID [place] [employer] MEDICARE ADVANTAGE Advance Directives * Full Code (Latest Code Status on File) Date Activated Date Inactivated Comments 12/16/2023 2:27 PM 12/18/2023 7:21 PM Care Teams Compliance Representative Dealer Relationship Specialty Start Date End Date Holland Lyons DO PCP - General 01/04/23
--- OUTSIDE RECORDS SUMMARY | 2025-03-19 12:32 | XMS_ITS | Encounter Summary ---
Author Organization [facility] Address [id number] [address] [place] [address] Care Team Providers Care Legal Administrative Assistant Name Role Phone Holland Lyons Primary Care Provider [phone] Encounter Details Date Type Department Care Team (Late st Contact Info) Description 07/20/2024 Orders Only [facility] - Family Medicine [address] [place] [address] Ref Prov, [place] [address] Social History Tobacco Use Types Packs/Day Years [...] often do you attend chur ch or latter day services? More than 4 times per year 12/22/2022 Do you belong to any clubs o r organizations such as baptist groups, unions, fraternal or athletic groups, or [...] Answer Date Recorded Total Score 0 03/03/2024 [facility] [place] [facility] - Occupational Stress [...] [facility] [place] [address] [facility] [address] [place] [phone] Griselda Moore, BACKSIDE GRINDER-TURNING MACHINE SET UP OPERATOR [address], [facility] [address] [place] [address] 11/08/2025 2:00 PM EDT Office Visit [facility] [address] [place] [address] documented as of this encounter Procedures Procedure Name Priority Date/Time Associated Diagnosis Comments CT ABDOMEN AND PELVIS W CONT Routine 07/19/2024 9:52 AM EST documented in this encounter Results * CT abdomen and pelvis with contrast (07/19/2024 9:52 AM EST) Anatomical Region Laterality Modality Body, Abdomen, Body Covera N/A Compu grisel Tomography us Not In System Ref Prov IMG CT ORDERABLES Final R esult documented in this encounter Visit Diagnoses Not on filedocumented in this encounter Additional Health Concerns Assessment Noted Time PHQ-9 Depression Total Score: 0 03/03/20 24 9:23 AM EDT documented as of this encounter Care Teams Legal Administrative Assistant Relationship Specialty Start Date End Date Holland Lyons DO [address] [place] [address] PCP - General Family Medicine 06/13/19 documented as of this encounter
--- OUTSIDE RECORDS SUMMARY | 2025-03-19 12:32 | XMS_ITS | Encounter Summary ---
Author Organization [employer] Address [id number] [address] [place] [address] Care Team Providers Care Logistics Loss Prevention Manager Name Role Phone ElviraHolland salazar Primary Care Provider + [phone] Encounter Details Date Type Department Care Team (Latest Contact Info) Description 03/08/2025 Results Follow-Up N [facility] [address] [place] [phone] Lori Carter MD [address] [place] [address] Hepatitis C(HCV) Ab w/ Reflex to PCR, CK Total, Complement profile (C3 AND C4), Additional followed-up results: 11 Social History Tobacco Use Types Packs/Day Years [...] often do you attend chur ch or christian services? More than 4 times per year [...] Answer Date Recorded Total Score 0 01/11/2025 [facility] Occupat ional Health - Occupational [...] encounter Miscellaneous Notes * Telephone Encounter - Lennie Wesley LPN - 03/08/2025 4:01 PM EDT Images from the original note were not included. Lori Carter MD to Me (Selected Message) MK 03/08/25 4:01 PM Result Note Urine culture Urinalysis; Hepatitis B Surface Antibody Quantitation; Hepatitis C(HCV) Ab w/ Reflex to PCR; Hepatitis B surface antigen; Hepatitis B core antibody, total (9 more orders) * Telephone Encounter - Deepthi Monsalve LPN - 03/08/2025 4:01 PM EDT ----- Message from Lennie Wesley LPN sent at 03/08/2025 4:22 PM EDT ----- ----- Message ----- From: Lori Carter MD Sent: 03/08/2025 4:01 PM EDT To: Lennie Wesley LPN Urine culture ----- Message ----- From: Lab, Background User Sent: 03/08/2025 1:49 PM EDT To: Lori Carter MD * Telephone Encounter - Lennie Wesley LPN - 03/08/2025 4:01 PM EDT Patient is clear and will go to lab documented in this encounter Plan of Treatment Upcoming Encounters Date Type Department Care Team (Late st Contact Info) Description 04/18/2025 3:40 PM EDT Office Visit [facility] [address] [facility] [address] [place] [address] Griselda Moore, CREATIVE ARTS THERAPIST-BANK OFFICER [address], [facility] [address] [place] [address] 11/08/2025 2:00 PM EDT Office Visit [facility] Internal Medicine - Family Medicine [address] [place] [phone] documented as of this encounter Results * Urine culture (clean catch) (03/09/2025 8:13 AM EDT) CULTURE RESULTS NO GROWTH AT <1000 CFU/mL 03/10/2025 10:49 AM EDT [facility] Urine Urine specimen collection, clean catch / Unknown Collection / Unknown 03/09/2025 8:13 AM EDT 03/09/2025 8:14 AM EDT Lori Carter MD MICROBIOLOGY - GENERAL GABRIELA BENJAMIN Final Result [facility] [address] [place] [address], documented in this encounter Visit Diagnoses Diagnosis Dysuria- Primary documented in this encounter Additional Health Concerns Assessment Noted Time PHQ-9 Depression Total Score: 0 01/12/20 25 3:38 PM EDT documented as of this encounter Care Teams Logistics Loss Prevention Manager Relationship Specialty Start Date End Date Holland Lyons DO [address] [place] [address] PCP - General Family Medicine 06/13/19 documented as of this encounter
--- OUTSIDE RECORDS SUMMARY | 2025-03-19 12:33 | XMS_ITS | Encounter Summary ---
Author Organization [facility] Address [address] [place] [address] Care Team Providers Care New Accounts Banking Representative Name Role Phone Holland Lyons DO Primary Care Provider Source Comments In the event this information is protected by the Federal Confidentiality of Alcohol and Drug AbusePatient Records regulations: The Federal rules restrict any use of the information to criminally investigate or prosecute any alcohol or drug abuse patient.[facility] Encounter Details Date Type Department Care Team (Late st Contact Info) Description 07/03/2017 Ophth Exam Ophthalmology [address] [phone] Vance Schmidt (Res)(Hist) [address] [place] [address] Social History Tobacco Use Types Packs/Day Years Used Date Smoking Tobacco: Passive Smoke Exposure - Never Smoker Cigarettes 0.5 5 - 04/13/2000 Smokeless Tobacco: Never Alcohol Use Standard Drinks/Week Comments Yes 0 [...] hearing? Answer Date of Assessment Author No 01/21/2017 4:54 PM EDT Mika Doll RN * Are you blind or do you have serious difficulty seeing, even when wearing glasses? Answer Date of Assessment Author No 01/21/2017 4:54 PM EDT Mika Doll RN * Do you have serious difficulty walking or climbing stairs? Answer Date of Assessment Author No 01/21/2017 4:54 PM EDT Mika Doll RN * Do you have difficulty dressing or bathing? Answer Date of Assessment Author No 01/21/2017 4:54 PM EDT Mika Doll RN * Because of a physical, mental, or emotional condition, do you have difficulty doing errands alone such as visiting a doctor's office or shopping? Answer Date of Assessment Author No 01/21/2017 4:54 PM EDT Mika Doll RN documented as of this encounter Mental Status * Because of a physical, mental, or emotional condition, do you have serious difficulty concentrating, remembering, or making decisions? Answer Entry Date Author No 01/21/2017 4:54 PM EDT Mika Doll RN documented in this encounter Plan of Treatment Not on file documented as of this encounter Visit Diagnoses Not on filedocumented in this encounter Additional Health Concerns Infection Onset Date Last Indicated Resolved Time COVID-19 Rule-Out 12/13/2021 12/13/2021 12/13/2021 6:31 AM EDT COVID-19 Rule-Out 03/03/2022 03/03/2022 03/03/2022 9:43 AM EDT documented as of this encounter Care Teams New Accounts Banking Representative Relationship Specialty Start Date End Date Holland Lyons DO [address] [place] [address] PCP - General Family Medicine 03/06/16 documented as of this encounter
--- OUTSIDE RECORDS SUMMARY | 2025-03-19 12:33 | XMS_ITS | Encounter Summary ---
Author Organization [facility] Address [address] [place] [address] Care Team Providers Care Cataloging Assistant Name Role Phone Holland Lyons DO Primary Care Provider Source Comments In the event this information is protected by the Federal Confidentiality of Alcohol and Drug AbusePatient Records regulations: The Federal rules restrict any use of the information to criminally investigate or prosecute any alcohol or drug abuse patient.[facility] Encounter Details Date Type Department Care Team (Late st Contact Info) Description 02/02/2022 Get Medical Advice General Surgery [address] [place] [phone] Jesús Ca MD [address] [place] [address] Scheduling surgery Social History Tobacco Use Types Packs/Day Years [...] N ot on file 11/27/2021 Data from: https://www.neighborhoodatlas.medicine.[facility]/. Last address used for calculation [address] [...] suspected to have Coronavirus/COVID-19? No / Unsure 01/27/2022 1:55 PM EDT documented as of this encounter [...] Assessment Author Yes 07/06/2017 3:45 PM Noris March, IFRAH * Do you have difficulty dressing or [...] Date Last Indicated Resolved Time COVID-19 Rule-Out 03/03/2022 03/03/2022 03/03/2022 9:43 AM EDT documented as of this encounter Care Teams Cataloging Assistant Relationship Specialty Start Date End Date Holland Lyons DO [address] [place] [address] PCP - General Family Medicine 03/06/16 documented as of this encounter
--- OUTSIDE RECORDS SUMMARY | 2025-03-19 12:33 | XMS_ITS | Encounter Summary ---
Author [facility] Address [id number] [address] [place] [address] Care Team Providers Care Retail Tire Sales Manager Name Role Phone ElviraHolland salazar Jojo HARVEY Primary Care Provider + [phone] Encounter Details Date Type Department Care Team (Late st Contact Info) Description 03/10/2023 Telephone [facility] Internal Medicine - Family Medicine [address] [place] [phone] Terri Conley CMA Social History Tobacco Use Types Packs/Day Years Used Date Smoking Tobacco: Former Smokeless Tobacco: Never Comments:15 yrs 1/2 PPD 25 yrs since quit Alcohol Use Standard Drinks/Week Comments Yes 0 [...] often do you attend chur ch or caodaism services? More than 4 times per year 12/22/2022 Do you belong to any clubs o r organizations such as holiness groups, unions, fraternal or athletic groups, or [...] PHQ-2 Answer Date Recorded Total Score 0 12/22/2022 [facility] - Occupational Stress Questionnaire Answer [...] Recorded Do you need help finding a [facility] career center and/or a training program? No 12/22/2022 Hunger Screening Answer Date Recorded Within the past 12 months we worried whether our food would run out before we got money to buy more. Never True 12/22/2022 Within the past 12 months th e food we bought just didn't last and we didn't have money to get more. Never True 12/22/2022 Purpose - Life Answer Date Recorded I [...] [facility] [place] [address] [facility] [address] [place] [address] Griselda Moore, COLLECTIONS ANALYST-BUILDER BEAM [address], [facility] [address] [place] [address] 11/08/2025 2:00 PM EDT Office Visit [facility] - Family Medicine [address] [place] [address] documented as of this encounter Visit Diagnoses Not on filedocumented in this encounter Additional Health Concerns Assessment Noted Time PHQ-9 Depression Total Score: 0 12/23/19 23 11:28 AM EDT documented as of this encounter Care Teams Retail Tire Sales Manager Relationship Specialty Start Date End Date Holland Lyons DO [address], [place] [address] PCP - General Family Medicine 06/13/19 documented as of this encounter
--- OUTSIDE RECORDS SUMMARY | 2025-03-19 12:33 | XMS_ITS | Encounter Summary ---
Author Organization [facility] Address [address] [place] [address] Care Team Providers Care Ditch Digger Name Role Phone Holland Lyons DO Primary Care Provider Source Comments In the event this information is protected by the Federal Confidentiality of Alcohol and Drug AbusePatient Records regulations: The Federal rules restrict any use of the information to criminally investigate or prosecute any alcohol or drug abuse patient.[facility] Encounter Details Date Type Department Care Team (Late st Contact Info) Description 02/06/2022 Get Medical Advice General Surgery [address] [place] [phone] Jesús Ca MD [address] [place] [address] Surgery & Follow up Social History Tobacco Use Types Packs/Day Years [...] N ot on file 11/27/2021 Data from: https://www.neighborhoodatlas.medicine.[facility]/. Last address used for calculation [address] [...] documented as of this encounter Care Teams Ditch Digger Relationship Specialty Start Date End Date Holland Lyons DO [address] [place] [address] PCP - General Family Medicine 03/06/16 documented as of this encounter
--- OUTSIDE RECORDS SUMMARY | 2025-03-19 12:33 | XMS_ITS | Encounter Summary ---
Author Organization [facility] Address [address] [place] [address] Care Team Providers Care Photovoltaic Subcontractor Name Role Phone Holland Lyons DO Primary Care Provider Source Comments In the event this information is protected by the Federal Confidentiality of Alcohol and Drug AbusePatient Records regulations: The Federal rules restrict any use of the information to criminally investigate or prosecute any alcohol or drug abuse patient.[facility] Encounter Details Date Type Department Care Team (Late st Contact Info) Description 01/29/2022 Get Medical Advice General Surgery [address] [place] [phone] Jesús Ca MD [address] [place] [address] Results Social History Tobacco Use Types Packs/Day Years [...] N ot on file 11/27/2021 Data from: https://www.neighborhoodatlas.medicine.[facility].edu/. Last address used for calculation [address] [...] documented as of this encounter Care Teams Photovoltaic Subcontractor Relationship Specialty Start Date End Date Holland Lyons DO [address] [place] [address] PCP - General Family Medicine 03/06/16 documented as of this encounter
--- OUTSIDE RECORDS SUMMARY | 2025-03-19 12:33 | XMS_ITS | Encounter Summary ---
Author Organization [facility] Address [address] [place], [place] [id number] Care Team Providers Care Train Operator Name Role Phone Holland Lyons DO Primary Care Provider Source Comments In the event this information is protected by the Federal Confidentiality of Alcohol and Drug AbusePatient Records regulations: The Federal rules restrict any use of the information to criminally investigate or prosecute any alcohol or drug abuse patient.[facility] Encounter Details Date Type Department Care Team (Late st Contact Info) Description 01/06/2022 Patient Msg General Surgery [address] [place] [phone] Jesús Ca MD [address] [place] [address] Prealbumin Social History Tobacco Use Types Packs/Day Years [...] N ot on file 11/27/2021 Data from: https://www.neighborhoodatlas.medicine.[facility]/. Last address used for calculation [address] [...] suspected to have Coronavirus/COVID-19? No / Unsure 01/06/2022 8:09 AM EDT documented as of this encounter Functional [...] documented as of this encounter Care Teams Train Operator Relationship Specialty Start Date End Date Holland Lyons DO [address] [place] [address] PCP - General Family Medicine 03/06/16 documented as of this encounter
--- OUTSIDE RECORDS SUMMARY | 2025-03-19 12:33 | XMS_ITS | Encounter Summary ---
Author Organization [facility] Address [id number] [address] [place] [address] Care Team Providers Care Pipe Assembly Worker Name Role Phone Holland Lyons Jojo HARVEY Primary Care Provider + [phone] Encounter Details Date Type Department Care Team (Late st Contact Info) Description 04/07/2024 Orders Only [facility] Internal Medicine - Family Medicine [address] [place] [address] Ref Prov, [place] [address] Social History Tobacco Use Types Packs/Day Years [...] often do you attend chur ch or bahai services? More than 4 times per year [...] Answer Date Recorded Total Score 0 03/03/2024 [facility] of Occupat ional Health - Occupational Stress [...] PHN [facility] [address] [facility] [address] [place] [phone] Griselda Moore, PATROL GUARD-FLOOR ASSEMBLER [address], [facility] [address] [place] [address] 11/08/2025 2:00 PM EDT Office Visit [facility] - Family Medicine [address] [place] [phone] documented as of this encounter Procedures Procedure Name Priority Date/Time Associated Diagnosis Comments XR CHEST 2 VWS Routine 04/06/2024 10:52 AM EDT documented in this encounter Results * X-ray chest 2 views (04/06/2024 10:52 AM EDT) Anatomical Region Laterality Modality Body, Chest N/A Computed Radiogr aphy us Not In System Ref Prov IMG DIAGNOSTIC IMAGING OR DERABLES Final Result documented in this encounter Visit Diagnoses Not on filedocumented in this encounter Additional Health Concerns Assessment Noted Time PHQ-9 Depression Total Score: 0 03/03/20 24 9:23 AM EDT documented as of this encounter Care Teams Pipe Assembly Worker Relationship Specialty Start Date End Date Holland Lyons DO [address], [place] [address] PCP - General Family Medicine 06/13/19 documented as of this encounter
--- OUTSIDE RECORDS SUMMARY | 2025-03-19 12:33 | XMS_ITS | Encounter Summary ---
Author Organization [facility] Address [facility][id number] [address] [place] [address] Care Team Providers Care Engineering Geologist Name Role Phone ElviraHolland salazar Jojo HARVEY Primary Care Provider [phone] Encounter Details Date Type Department Care Team (Late st Contact Info) Description 06/24/2023 Orders Only [facility] Medicine - Family Medicine [address] [address] Maci Winslow, DROSS PULLER-REGIONAL DRIVER [address] [facility] [place] [address] Ulnar nerve entrapment at elbow, left Social History Tobacco Use Types Packs/Day Years [...] often do you attend chur ch or jainism services? More than 4 times per year 12/22/2022 Do you belong to any clubs o r organizations such as anglican groups, unions, fraternal or athletic groups, or [...] PHQ-2 Answer Date Recorded Total Score 0 06/17/2023 [facility] of Occupat ional Health - Occupational Stress [...] Recorded Do you need help finding a [facility] career [facility] and/or a training program? No 12/22/2022 Hunger Screening Answer Date Recorded Within the past 12 months we worried whether our food would run out before we got money to buy more. Never True 06/17/2023 Within the past 12 months th e food we bought just didn't last and we didn't have money to get more. Never True 06/17/2023 Purpose - Life Answer Date Recorded I [...] EDT Office Visit [facility] [address] [facility] [address] [place] [address] Griselda Moore DROSS PULLER-REGIONAL DRIVER [address], [facility] [address] [place] [address] 11/08/2025 2:00 PM EDT Office Visit [facility] Medicine - Family Medicine [address] [place] [phone] documented as of this encounter Procedures Procedure Name Priority Date/Time Associated Diagnosis Comments EMG WITH NCV Routine 06/23/2023 Ulnar nerve entrapment at elbow, left documented in this encounter Results * EMG (06/23/2023) Maci Winslow DROSS PULLER-REGIONAL DRIVER NEUROLOGY ORDERABLES Fin al Result MANUALLY TRANSCRIBED RESULTS documented in this encounter Visit Diagnoses Diagnosis Ulnar nerve entrapment at elbow, left documented in this encounter Additional Health Concerns Assessment Noted Time PHQ-9 Depression Total Score: 0 06/17/20 23 10:36 AM EST documented as of this encounter Care Teams Engineering Geologist Relationship Specialty Start Date End Date Holland Lyons DO [address], [place] [address] PCP - General Family Medicine 06/13/19 documented as of this encounter
--- OUTSIDE RECORDS SUMMARY | 2025-03-19 12:33 | XMS_ITS | Encounter Summary ---
Author Organization [facility] Address [id number] [address] [place] [address] Care Team Providers Care Venetian Blind Machine Operator Name Role Phone Holland Lyons Primary Care Provider + [phone] Reason for Visit * Reason Comments Med Refill Encounter Details Date Type Department Care Team (Late st Contact Info) Description 12/05/2022 Refill [facility] Internal Medicine - Family Medicine [address] [place] [address] Maci Winslow, REAMING MACHINE OPERATOR FOR PLASTIC-TAPE DECK INSTALLER [address] [place] [place] [address] Social History Tobacco Use Types Packs/Day Years Used Date Smoking Tobacco: Former Smokeless Tobacco: Never Comments:15 yrs 1/2 PPD 25 yrs since quit Alcohol Use Standard Drinks/Week Comments Yes 0 (1 standard drink = 0.6 oz pur e alcohol) PHQ-2 Answer Date Recorded Total Score 0 11/05/2022 Childcare Answer Date Recorded Childcare Unknown 12/14/2018 Employment Answer Date Recorded Employment Unknown 12/14/2018 Purpose - Life Answer Date Recorded Purpose and direction in life Unknown Comments No Sex and Gender Information Value Date Recorded Sex Assigned at Not on file Legal Sex Female 11:46 AM EDT Gender Identity Not on file Sexual Orientation Not on file documented as of this encounter Plan of Treatment Upcoming Encounters Date Type Department Care Team (Late Contact Info) Description 04/18/2025 3:40 PM EDT Office Visit [facility] [address] [place] [address] Griselda Moore, REAMING MACHINE OPERATOR FOR PLASTIC-TAPE DECK INSTALLER [address], [address] [place] [address] 11/08/2025 2:00 PM EDT Office Visit [facility] - Family Medicine [address] [place] [phone] documented as of this encounter Visit Diagnoses Not on filedocumented in this encounter Additional Health Concerns Assessment Noted Time PHQ-9 Depression Total Score: 0 11/06/19 23 1:24 PM EDT documented as of this encounter Care Teams Venetian Blind Machine Operator Relationship Specialty Start Date End Date Holland Lyons DO [address], [place] [address] PCP - General Family Medicine 06/13/19 documented as of this encounter
--- OUTSIDE RECORDS SUMMARY | 2025-03-19 12:33 | XMS_ITS | Encounter Summary ---
Author Organization [facility] Address [facility] [id number] [address] [place] [address] Care Team Providers Care Card Puncher Name Role Phone KristinaHolland cutler Jojo HARVEY Primary Care Provider + [phone] Encounter Details Date Type Department Care Team (Late st Contact Info) Description 12/15/2023 Orders Only [facility] - Family Medicine [address] [place] [address] External, Scanning Provider Social History Tobacco Use Types Packs/Day [...] often do you attend chur ch or advent services? More than 4 times per year 12/22/2022 Do you belong to any clubs o r organizations such as hoahaoism groups, unions, fraternal or athletic groups, or [...] Answer Date Recorded Total Score 0 06/17/2023 [facility] of Occupat ional Health - Occupational [...] Recorded Do you need help finding a [facility] and/or a training program? [...] [facility] [place] [address] [facility] [address] [place] [address] Griselda Moore, COIL MACHINE OPERATOR-DECAL DECORATOR [address], [facility] [address] [place] [address] 11/08/2025 2:00 PM EDT Office Visit [facility] - Family Medicine [address] [place] [phone] documented as of this encounter Procedures Procedure Name Priority Date/Time Associated Diagnosis Comments ECG 12-LEAD Routine 12/15/2023 2:17 PM EDT NUC STRESS 2 DAY LEXISCAN/EXERCISE Routine 12/14/2023 2:23 PM EDT documented in this encounter Results * ECG 12 lead (12/15/2023 2:17 PM EDT) us Scanning Provider External ECG ORDERABLES Final Result MANUALLY TRANSCRIBED RESULTS * Nuc stress 2 day Lexiscan / exercise (12/14/2023 2:23 PM EDT) Anatomical Region Laterality Modality Chest N/A Nuclear Medicine us Scanning Provider External CV STRESS ORDERABLES Final Result documented in this encounter Visit Diagnoses Not on filedocumented in this encounter Additional Health Concerns Assessment Noted Time PHQ-9 Depression Total Score: 0 06/17/20 23 10:36 AM EST documented as of this encounter Care Teams Card Puncher Relationship Specialty Start Date End Date Holland Lyons DO [address] [place] [address] PCP - General Family Medicine 06/13/19 documented as of this encounter
--- OUTSIDE RECORDS SUMMARY | 2025-03-19 12:33 | XMS_ITS | Encounter Summary ---
Author Organization [facility] Address [address] [place] [address] Care Team Providers Care Set Up Worker Name Role Phone Holland Lyons DO Primary Care Provider Source Comments In the event this information is protected by the Federal Confidentiality of Alcohol and Drug AbusePatient Records regulations: The Federal rules restrict any use of the information to criminally investigate or prosecute any alcohol or drug abuse patient.[facility] Encounter Details Date Type Department Care Team (Late st Contact Info) Description 02/27/2022 Get Medical Advice General Surgery [address] [place] [phone] Jesús Ca MD [address] [place] [address] Surgery report time Social History Tobacco Use Types Packs/Day Years [...] N ot on file 11/27/2021 Data from: https://www.neighborhoodatlas.medicine.[facility]/. Last address used for calculation [address] 11/27/2021 Comments No Sex and Gender Information [...] suspected to have Coronavirus/COVID-19? No / Unsure 03/02/2022 8:56 AM EDT documented as of this encounter [...] documented as of this encounter Care Teams Set Up Worker Relationship Specialty Start Date End Date SerenaHolland DO Dimitri [address] [place] [address] PCP - General Family Medicine 03/06/16 documented as of this encounter
--- OUTSIDE RECORDS SUMMARY | 2025-03-19 12:33 | XMS_ITS | Encounter Summary ---
Author Organization [facility] Address [address] [place] [address] Care Team Providers Care Shipboard Intelligence Analyst Name Role Phone Holland Lyons DO Primary Care Provider Source Comments In the event this information is protected by the Federal Confidentiality of Alcohol and Drug AbusePatient Records regulations: The Federal rules restrict any use of the information to criminally investigate or prosecute any alcohol or drug abuse patient.[facility] Encounter Details Date Type Department Care Team (Late st Contact Info) Description 12/30/2017 Get Medical Advice Rheumatology [address] [place] [address] Carlos Alberto Monge (Fel)(Hist) [address] [place] [address] Non-Urgent Medical Question Social History Tobacco Use [...] documented as of this encounter Care Teams Shipboard Intelligence Analyst Relationship Specialty Start Date End Date Holland Lyons DO [address] [place] [address] PCP - General Family Medicine 03/06/16 documented as of this encounter
--- OUTSIDE RECORDS SUMMARY | 2025-03-19 12:33 | XMS_ITS | Encounter Summary ---
Author Organization [facility] Address [address] [place] [address] Care Team Providers Care Armored Car Driver Name Role Phone Holland Lyons DO Primary Care Provider Source Comments In the event this information is protected by the Federal Confidentiality of Alcohol and Drug AbusePatient Records regulations: The Federal rules restrict any use of the information to criminally investigate or prosecute any alcohol or drug abuse patient.[facility] Encounter Details Date Type Department Care Team (Late st Contact Info) Description 12/14/2017 Get Medical Advice Rheumatology [address] [place] [address] Carlos Alberto Monge (Fel)(Hist) [address] [place] [address] RE: Medication Question (Not Renewal) Social History Tobacco Use Types Packs/Day Years [...] Assessment Author No 07/06/2017 3:45 PM Noris Mrach RN * Because of a physical, mental, [...] documented as of this encounter Care Teams Armored Car Driver Relationship Specialty Start Date End Date Holland Lyons DO [address] [place] [address] PCP - General Family Medicine 03/06/16 documented as of this encounter
--- OUTSIDE RECORDS SUMMARY | 2025-03-19 12:33 | XMS_ITS | Encounter Summary ---
Author Organization [facility] Address [id number] [address] [place] [address] Care Team Providers Care Railroad Signal Technician Name Role Phone Holland Lyons Primary Care Provider + [phone] Encounter Details Date Type Department Care Team (Late st Contact Info) Description 02/15/2024 Orders Only [facility] - Family Medicine [address] [place] [address] Ref Prov, [place] [address] Social History Tobacco Use Types Packs/Day Years [...] often do you attend chur ch or gnosticism services? More than 4 times per year 12/22/2022 Do you belong to any clubs o r organizations such as synagogue groups, unions, fraternal or athletic groups, or [...] PHQ-2 Answer Date Recorded Total Score 0 02/10/2024 [facility] of Occupat ional Health - Occupational Stress [...] got money to buy more. Never True 02/10/2024 Within the past 12 months th e food we bought just didn't last and we didn't have money to get more. Never True 02/10/2024 Purpose - Life Answer Date Recorded I [...] EDT Office Visit [facility] [place] [address] [facility] [address] [place] [phone] Griselda Moore, FITTING ROOM INSPECTOR-SAMPLER RADIOACTIVE WASTE [address], [facility] [address] [place] [address] 11/08/2025 2:00 PM EDT Office Visit [facility] - Family Medicine [address] [place] [address] documented as of this encounter Procedures Procedure Name Priority Date/Time Associated Diagnosis Comments XR SHOULDER LT MIN 2 VWS Routine 02/14/2024 7:53 AM EDT documented in this encounter Results * X-ray shoulder left minimum 2 views (02/14/2024 7:53 AM EDT) Anatomical Region Laterality Modality MSK, Upper Extremities, Shoulder Left Computed Radiography us Not In System Ref Prov IMG DIAGNOSTIC IMAGING OR DERABLES Final Result documented in this encounter Visit Diagnoses Not on filedocumented in this encounter Additional Health Concerns Assessment Noted Time PHQ-9 Depression Total Score: 0 02/10/20 24 3:34 PM EDT documented as of this encounter Care Teams Railroad Signal Technician Relationship Specialty Start Date End Date Holland Lyons DO [address], [place] [address] PCP - General Family Medicine 06/13/19 documented as of this encounter
--- OUTSIDE RECORDS SUMMARY | 2025-03-19 12:33 | XMS_ITS | Encounter Summary ---
Author Organization [facility] Address [address] [place] [address] Care Team Providers Care Manufacturing Plant Technician Name Role Phone Holland Lyons DO Primary [...] Get Medical Advice General Surgery [address] [place] [phone] Jesús Ca MD [address] [place] [address] Surgery Social History Tobacco Use Types Packs/Day [...] N ot on file 11/27/2021 Data from: https://www.neighborhoodatlas.medicine.[facility].edu/. Last address used for calculation [address] [...] documented as of this encounter Care Teams Manufacturing Plant Technician Relationship Specialty Start Date End Date Holland Lyons DO [address] [place] [address] PCP - General Family Medicine 03/06/16 documented as of this encounter
--- OUTSIDE RECORDS SUMMARY | 2025-03-19 12:33 | XMS_ITS | Encounter Summary ---
Author Organization [facility] Address [address] [place] [address] Care Team Providers Care Dust Mop Maker Name Role Phone Holland Lyons DO Primary Care Provider Source Comments In the event this information is protected by the Federal Confidentiality of Alcohol and Drug AbusePatient Records regulations: The Federal rules restrict any use of the information to criminally investigate or prosecute any alcohol or drug abuse patient.[facility] Encounter Details Date Type Department Care Team (Late st Contact Info) Description 01/21/2022 Get Medical Advice General Surgery [address] [place] [phone] Jesús Ca MD [address] [place] [phone] Unable to contact you. Social History Tobacco Use Types Packs/Day Years [...] ot on file 11/27/2021 Data from: https://www.neighborhoodatlas.medicine.[facility]/. Last address used [...] suspected to have Coronavirus/COVID-19? No / Unsure 01/24/2022 11:46 PM EDT documented as of this encounter [...] documented as of this encounter Care Teams Dust Mop Maker Relationship Specialty Start Date End Date Serena Hollandaugust Mosley DO [address] [place] [address] PCP - General Family Medicine 03/06/16 documented as of this encounter
--- OUTSIDE RECORDS SUMMARY | 2025-03-19 12:33 | XMS_ITS | Encounter Summary ---
Author Organization [facility] Address [address] [place] [address] Care Team Providers Care Rehabilitation Engineer Name Role Phone Holland Lyons DO Primary Care Provider Source Comments In the event this information is protected by the Federal Confidentiality of Alcohol and Drug AbusePatient Records regulations: The Federal rules restrict any use of the information to criminally investigate or prosecute any alcohol or drug abuse patient.[facility] Encounter Details Date Type Department Care Team (Late st Contact Info) Description 12/10/2017 Get Medical Advice Rheumatology [address] [place] [address] Carlos Alberto Monge (Fel)(Hist) [address] [place] [address] Non-Urgent Medical Question Social History Tobacco Use [...] documented as of this encounter Care Teams Rehabilitation Engineer Relationship Specialty Start Date End Date Holland Lyons DO [address] [place] [address] PCP - General Family Medicine 03/06/16 documented as of this encounter
--- OUTSIDE RECORDS SUMMARY | 2025-03-19 12:33 | XMS_ITS | Encounter Summary ---
Author Organization [facility] Address [address] [place] [address] Care Team Providers Care Registered Nurse Cardiovascular Icu Name Role Phone Holland Lyons DO Primary Care Provider Source Comments In the event this information is protected by the Federal Confidentiality of Alcohol and Drug AbusePatient Records regulations: The Federal rules restrict any use of the information to criminally investigate or prosecute any alcohol or drug abuse patient.[facility] Encounter Details Date Type Department Care Team (Late st Contact Info) Description 02/03/2022 Get Medical Advice General Surgery [address] [place] [phone] Jesús Ca MD [address] [place] [address] Surgery Date Social History Tobacco Use Types Packs/Day Years [...] N ot on file 11/27/2021 Data from: https://www.neighborhoodatlas.medicine.[facility]/. Last address used for calculation [address] 11/27/2021 Comments No Sex and Gender Information Value Date Recorded Sex Assigned at Female 09/24/2021 6:18 PM EDT Legal Sex Female 2:46 PM EDT Gender Identity Female 09/24/2021 6:18 PM EDT Sexual Orientation Straight 09/24/2021 6: 18 PM EDT COVID-19 Exposure Response Date Recorded In the last 10 days, have yo arsh been in contact with someone who was [...] Entry Date Author No 07/06/2017 3:45 PM Edilia March RN documented in this encounter Plan of Treatment Not on file documented as of this encounter Visit Diagnoses Not on filedocumented in this encounter Additional Health Concerns Infection Onset Date Last Indicated Resolved Time COVID-19 Rule-Out 03/03/2022 03/03/2022 03/03/2022 9:43 AM EDT documented as of this encounter Care Teams Registered Nurse Cardiovascular Icu Relationship Specialty Start Date End Date Holland Lyons DO [address] [place] [address] PCP - General Family Medicine 03/06/16 documented as of this encounter
--- OUTSIDE RECORDS SUMMARY | 2025-03-19 12:33 | XMS_ITS | Encounter Summary ---
Author Organization [facility] Address [address] [place] [address] Care Team Providers Care Champion Of Sustainable Design Name Role Phone Holland Lyons DO Primary Care Provider Source Comments In the event this information is protected by the Federal Confidentiality of Alcohol and Drug AbusePatient Records regulations: The Federal rules restrict any use of the information to criminally investigate or prosecute any alcohol or drug abuse patient.[facility] Encounter Details Date Type Department Care Team (Late st Contact Info) Description 12/01/2017 Get Medical Advice Rheumatology [address] [place] [address] Carlos Alberto Monge (Fel)(Hist) [address] [place] [address] RE: Non-Urgent Medical Question Social History Tobacco [...] documented as of this encounter Care Teams Champion Of Sustainable Design Relationship Specialty Start Date End Date Holland Lyons DO [address] [place] [address] PCP - General Family Medicine 03/06/16 documented as of this encounter
--- OUTSIDE RECORDS SUMMARY | 2025-03-19 12:33 | XMS_ITS | Encounter Summary ---
Author Organization [facility] Address [address] [place], [place] [id number] Care Team Providers Care Silverware Buffing Machine Operator Name Role Phone Holland Lyons DO Primary Care Provider Source Comments In the event this information is protected by the Federal Confidentiality of Alcohol and Drug AbusePatient Records regulations: The Federal rules restrict any use of the information to criminally investigate or prosecute any alcohol or drug abuse patient.[facility] Encounter Details Date Type Department Care Team (Late st Contact Info) Description 01/28/2022 Get Medical Advice General Surgery [address] [place] [phone] Jesús Ca MD [address] [place] [address] Prealbumin Results Social History Tobacco Use Types Packs/Day [...] N ot on file 11/27/2021 Data from: https://www.neighborhoodatlas.medicine.[facility]/. Last address used for calculation [address] [...] documented as of this encounter Care Teams Silverware Buffing Machine Operator Relationship Specialty Start Date End Date Holland Lyons DO [address] [place] [address] PCP - General Family Medicine 03/06/16 documented as of this encounter
--- OUTSIDE RECORDS SUMMARY | 2025-03-19 12:33 | XMS_ITS | Encounter Summary ---
Author Organization [facility] tem Address [facility] [id number] [address] [place] [address] Care Team Providers Care Glycerine Plant Operator Name Role Phone KristinaHolland cutler Jojo HARVEY Primary Care Provider + [phone] Encounter Details Date Type Department Care Team (Late st Contact Info) Description 01/18/2023 Orders Only [facility] - Family Medicine [address] [place] [address] External, Scanning Provider Social History Tobacco Use [...] often do you attend chur ch or pentecostalism services? More than 4 times per year 12/22/2022 Do you belong to any clubs o r organizations such as congregation groups, unions, fraternal or athletic groups, or [...] Answer Date Recorded Total Score 0 12/22/2022 [facility] of Occupat ional Health - [...] Do you need help finding a [facility] career [facility] and/or a training program? [...] EDT Office Visit [facility] [place] [address] [facility] [address] [place] [address] Griselda Moore, LOFT PATTERNMAKER-COPY LATHE OPERATOR [address], [facility] [address] [place] [address] 11/08/2025 2:00 PM EDT Office Visit [facility] - Family Medicine [address] [place] [address] documented as of this encounter Procedures Procedure Name Priority Date/Time Associated Diagnosis Comments SPIROMETRY Routine 01/14/2023 2:21 PM EDT documented in this encounter Results * (ABNORMAL) Spirometry (01/14/2023 2:21 PM EDT) us Scanning Provider External PFT ORDERABLES Edite d Result - Final MANUALLY TRANSCRIBED RESULTS documented in this encounter Visit Diagnoses Not on filedocumented in this encounter Additional Health Concerns Assessment Noted Time PHQ-9 Depression Total Score: 0 12/23/19 23 11:28 AM EDT documented as of this encounter Care Teams Glycerine Plant Operator Relationship Specialty Start Date End Date Holland Lyons DO [address], [place] [address] PCP - General Family Medicine 06/13/19 documented as of this encounter
--- OUTSIDE RECORDS SUMMARY | 2025-03-19 12:33 | XMS_ITS | Encounter Summary ---
Author [id number] [address] [place] [address] Care Team Providers Care Mud Logger Name Role Phone SerenaHolland Jojo HARVEY Primary Care Provider [phone] Encounter Details Date Type Department Care Team (Late st Contact Info) Description 07/01/2023 [facility]phone [facility] [address] [place] [phone] Tracey Marquez CMA Social History Tobacco Use Types Packs/Day [...] often do you attend chur ch or jehovah's witness services? More than 4 times per year 12/22/2022 Do you belong to any clubs o r organizations such as orthodox groups, unions, fraternal or athletic groups, or [...] Answer Date Recorded Total Score 0 06/17/2023 [facility] - Occupational Stress Questionnaire Answer Date [...] Recorded Do you need help finding a [facility] career center and/or a training program? No [...] encounter Miscellaneous Notes * Telephone Encounter - Tracey Marquez CMA - 07/01/2023 1:28 PM EST [facility] called wanted to know if we would follow this pt care she is being released to home.Back in January she had a hernia repair and she now was in the hospital for debreavment of the wound and now has a wound vac. Would you follow pt care? Phone number is [phone] opt 4. * Telephone Encounter - Holland Lyons DO - 07/01/2023 1:28 PM EST Ok but she will need a follow up appt/face to face visit to document need. She canceled appt in July * Telephone Encounter - Tracey Marquez CMA - 07/01/2023 1:28 PM EST I called and let them know. I will call pt to let her know also. documented in this encounter Plan of Treatment Upcoming Encounters Date Type Department Care Team (Late st Contact Info) Description 04/18/2025 3:40 PM EDT Office Visit [facility] [place] [address] [place] [phone] Griselda Moore, CODING COMPLIANCE MANAGER-DRIVER MESSENGER [address] [place] [address] 11/08/2025 2:00 PM EDT Office Visit [facility] - Family Medicine [address] [place] [address] documented as of this encounter Visit Diagnoses Not on filedocumented in this encounter Additional Health Concerns Assessment Noted Time PHQ-9 Depression Total Score: 0 06/17/20 23 10:36 AM EST documented as of this encounter Care Teams Mud Logger Relationship Specialty Start Date End Date Holland Lyons DO [address] [place] [address] PCP - General Family Medicine 06/13/19 documented as of this encounter
--- OUTSIDE RECORDS SUMMARY | 2025-03-19 12:33 | XMS_ITS | Encounter Summary ---
[facility] Address [facility]-[id number] [address] [place] [address] Care Team Providers Care Head Of Product Name Role Phone ElviraHolland salazar Jojo HARVEY Primary Care Provider +[phone] Encounter Details Date Type Department Care Team (Late st Contact Info) Description 05/07/2023 Telephone [facility] Internal Medicine - Family Medicine [address] [place] [phone] Terri Conley CMA Social History Tobacco Use [...] often do you attend chur ch or baptism services? More than 4 times per year [...] Answer Date Recorded Total Score 0 12/22/2022 [facility] - Occupational Stress Questionnaire [...] Recorded Do you need help finding a [facility] career center and/or a training [...] encounter Miscellaneous Notes * Telephone Encounter - Terri Conley CMA - 05/07/2023 10:51 AM EDT Patient was recently in the hospital and her Physician told her while in there to quit taking the metoprolol Succinate XL 25mg due to her pulse was between 45- 50 BPM * Telephone Encounter - NATALI Corrales - 05/07/2023 10:51 AM EDT Spoke to Janet she can stop and set up Dec appt with me. Need to re-check her TFTs anyway. NATALI Corrales 05/07/23 1224 documented in this encounter Plan of Treatment Upcoming Encounters Date Type Department Care Team (Late st Contact Info) Description 04/18/2025 3:40 PM EDT Office Visit [facility] [address] [phone] Griselda Moore [facility] [address], [facility] [address] [place] [address] 11/08/2025 2:00 PM EDT Office Visit [facility] Internal Medicine - Family Medicine [address] [place] [address] documented as of this encounter Visit Diagnoses Not on filedocumented in this encounter Additional Health Concerns Assessment Noted Time PHQ-9 Depression Total Score: 0 06/20/20 23 11:28 AM EDT documented as of this encounter Care Teams Head Of Product Relationship Specialty Start Date End Date Holland Lyons DO [address], [facility] [place] [address] PCP - General Family Medicine 06/13/19 documented as of this encounter
--- OUTSIDE RECORDS SUMMARY | 2025-03-19 12:33 | XMS_ITS | Encounter Summary ---
Author Organization [facility] [employer] s tem Address [facility]-[id number] [address] [place] [address] Care Team Providers Care Autocad Draftsman Name Role Phone ElviraHolland salazar Jojo HARVEY Primary Care Provider + [phone] Encounter Details Date Type Department Care Team (Late st Contact Info) Description 03/11/2023 Orders Only [facility] Internal Medicine - Family Medicine [address] [place] [address] Chika Bland CMA Hypothyroidism, unspecified type Social History Tobacco Use Types Packs/Day Years [...] often do you attend chur ch or denominational services? More than 4 times per year 12/22/2022 Do you belong to any clubs o r organizations such as yazidism groups, unions, fraternal or athletic groups, or [...] Answer Date Recorded Total Score 0 12/22/2022 [facility] of Occupat ional Health - Occupational Stress [...] Office Visit [facility] [address] [facility] [address] [place] [phone] Griselda Moore APRN-CLINICAL OPERATIONS MANAGER [address], [place] [address] [place] [address] 11/08/2025 2:00 PM EDT Office Visit [facility] Internal Medicine - Family Medicine [address] [place] [address] documented as of this encounter Procedures Procedure Name Priority Date/Time Associated Diagnosis Comments TSH Routine 10/22/2022 Hypothyroidism, unspecified type T4, FREE Routine 10/22/2022 Hypothyroidism, unspecified type documented in this encounter Results * T4, free (10/22/2022) External T4 Free 0.97 0.76 - 1.46 SUNQUEST 10/22/2022 us Maci Winslow APRN-CLINICAL OPERATIONS MANAGER LAB BLOOD ORDERABLES Fin al Result SUNQUEST * (ABNORMAL) TSH (10/22/2022) External Tsh 4.566(A) 0.358 - 3.740 MANUALLY TRANSCRIBED RESULTS 10/22/2022 Maci Winslow WAREHOUSE RECEIVER-CLINICAL OPERATIONS MANAGER LAB BLOOD ORDERABLES Fin al Result MANUALLY TRANSCRIBED RESULTS documented in this encounter Visit Diagnoses Diagnosis Hypothyroidism, unspecified type documented in this encounter Additional Health Concerns Assessment Noted Time PHQ-9 Depression Total Score: 0 12/23/19 23 11:28 AM EDT documented as of this encounter Care Teams Autocad Draftsman Relationship Specialty Start Date End Date Holland Lyons DO [address], [place] [address] PCP - General Family Medicine 06/13/19 documented as of this encounter
--- OUTSIDE RECORDS SUMMARY | 2025-03-19 12:33 | XMS_ITS | Encounter Summary ---
Author Organization [facility] tem Address [facility]-[id number] [address] [place] [address] Care Team Providers Care Chemical Engraver Name Role Phone KristinaHolland cutler Primary Care Provider + [phone] Encounter Details Date Type Department Care Team (Late st Contact Info) Description 02/09/2024 Orders Only [facility] Internal Medicine - Family Medicine [address] [place] [address] External, Scanning Provider Social History Tobacco Use [...] Answer Date Recorded Total Score 0 02/10/2024 [facility] of Occupat ional Health - Occupational [...] Recorded Do you need help finding a [facility] and/or a training program? [...] EDT Office Visit [facility] [address] [facility] [address] [place] [address] Griselda Moore, SOFTWARE BUILD ENGINEER-ELECTRICAL ENGINEER MEP [address], [facility] [address] [place] [address] 11/08/2025 2:00 PM EDT Office Visit [facility] Internal Medicine - Family Medicine [address] [place] [address] documented as of this encounter Procedures Procedure Name Priority Date/Time Associated Diagnosis Comments XR CHEST 2 VWS Routine 02/08/2024 8:36 AM EDT documented in this encounter Results * X-ray chest 2 views (02/08/2024 8:36 AM EDT) Anatomical Region Laterality Modality Body, Chest N/A Computed Radiogr aphy us Scanning Provider External IMG DIAGNOSTIC IMAGIN G ORDERABLES Final Result documented in this encounter Visit Diagnoses Not on filedocumented in this encounter Additional Health Concerns Assessment Noted Time PHQ-9 Depression Total Score: 0 06/17/20 23 10:36 AM EST documented as of this encounter Care Teams Chemical Engraver Relationship Specialty Start Date End Date Holland Lyons DO [address], [facility] [place] [address] PCP - General Family Medicine 06/13/19 documented as of this encounter
--- OUTSIDE RECORDS SUMMARY | 2025-03-19 12:33 | XMS_ITS | Encounter Summary ---
Author Organization [facility] Sys tem Address [facility]-[id number] [address] [place] [address] Care Team Providers Care Pantry Cook Name Role Phone KristinaHolland cutler Jojo HARVEY Primary Care Provider + [phone] Encounter Details Date Type Department Care Team (Late st Contact Info) Description 12/14/2023 Orders Only [facility] Internal Medicine - Family Medicine [address] [place] [address] External, Scanning Provider Social History Tobacco Use [...] often do you attend chur ch or zoroastrianism services? More than 4 times per year 12/22/2022 Do you belong to any clubs o r organizations such as jainism groups, unions, fraternal or athletic groups, or [...] Date Recorded Total Score 0 06/17/2023 [facility] of Occupat ional Health - [...] Recorded Do you need help finding a [facility] career [facility] and/or a training [...] EDT Office Visit [facility] [address] [place] [address] [place] [address] Griselda Moore, FLORAL ARRANGER-RECORD PRESS SUPERVISOR [address], [place] [address] [place] [address] 11/08/2025 2:00 PM EDT Office Visit [facility] Medicine - Family Medicine [address] [place] [address] documented as of this encounter Procedures Procedure Name Priority Date/Time Associated Diagnosis Comments NUC STRESS 2 DAY LEXISCAN/EXERCISE Routine 12/13/2023 2:34 PM EDT ECG 12-LEAD Routine 12/13/2023 1:54 PM EDT ECG 12-LEAD Routine 12/13/2023 11:16 AM EDT XR CHEST 1 VW Routine 12/13/2023 8:15 AM EDT documented in this encounter Results * Nuc stress 2 day Lexiscan / exercise (12/13/2023 2:34 PM EDT) Anatomical Region Laterality Modality Chest N/A Nuclear Medicine us Scanning Provider External CV STRESS ORDERABLES Final Result * ECG 12 lead (12/13/2023 1:54 PM EDT) us Scanning Provider External ECG ORDERABLES Final Result MANUALLY TRANSCRIBED RESULTS * ECG 12 lead (12/13/2023 11:16 AM EDT) us Scanning Provider External ECG ORDERABLES Final Result MANUALLY TRANSCRIBED RESULTS * X-ray chest 1 view (12/13/2023 8:15 AM EDT) Anatomical Region Laterality Modality Body, Chest N/A Computed Radiogr aphy us Scanning Provider External IMG DIAGNOSTIC IMAGIN G ORDERABLES Final Result documented in this encounter Visit Diagnoses Not on filedocumented in this encounter Additional Health Concerns Assessment Noted Time PHQ-9 Depression Total Score: 0 06/17/20 23 10:36 AM EST documented as of this encounter Care Teams Pantry Cook Relationship Specialty Start Date End Date Holland Lyons DO [address] [facility] [place] [address] PCP - General Family Medicine 06/13/19 documented as of this encounter
--- OUTSIDE RECORDS SUMMARY | 2025-03-19 12:33 | XMS_ITS | Encounter Summary ---
Author Organization [facility] Sys tem Address [facility]-[id number] [address] [place] [address] Care Team Providers Care Inside Account Executive Name Role Phone KristinaHolland cutler Jojo HARVEY Primary Care Provider + [phone] Encounter Details Date Type Department Care Team (Late st Contact Info) Description 02/08/2024 Orders Only [facility] Internal Medicine - Family Medicine [address] [place] [address] External, Scanning Provider Social History Tobacco Use [...] any clubs o r organizations such as yarsani groups, unions, fraternal or athletic groups, or [...] Answer Date Recorded Total Score 0 02/10/2024 [facility] of Occupat ional [...] Recorded Do you need help finding a [facility] and/or a training program? [...] EDT Office Visit [facility] [place] [address] [facility] [address] [place] [address] Griselda Moore, CLINICAL EDUCATION MANAGER-INVENTORY ASSOCIATE [address], [facility] [address] [place] [address] 11/08/2025 2:00 PM EDT Office Visit [facility] Internal Medicine - Family Medicine [address] [place] [address] documented as of this encounter Procedures Procedure Name Priority Date/Time Associated Diagnosis Comments MT TCAT INSJ PERM DUAL CHAMBER LDLS PM COMPL SYS Routine 02/07/2024 9:48 AM EDT documented in this encounter Results * MT TCAT INSJ PERM DUAL CHAMBER LDLS PM COMPL SYS (02/07/2024 9:48 AM EDT) us Scanning Provider External MT MISCELLANEOUS SERV ICES Final Result MANUALLY TRANSCRIBED RESULTS documented in this encounter Visit Diagnoses Not on filedocumented in this encounter Additional Health Concerns Assessment Noted Time PHQ-9 Depression Total Score: 0 06/17/20 23 10:36 AM EST documented as of this encounter Care Teams Inside Account Executive Relationship Specialty Start Date End Date Holland Lyons DO [address], [place] [address] PCP - General Family Medicine 06/13/19 documented as of this encounter
--- OUTSIDE RECORDS SUMMARY | 2025-03-19 12:33 | XMS_ITS | Patient Health Record ---
Author Organization [facility] [place] Address [address] [place] [address] Care Team Providers Care Gun Welder Name Role Phone None, Unknown or Primary Care Provider Unavailab le Allergies Allergen (clinical drug ingredient) Drug/Non Drug Allergy documented on EMR Reaction Allergy Type Onset Date Status Keflex Skin pealing Drug Allergy Acti ve tramadol traMADol HCl hallucinations Drug Allergy Active codeine Codeine anaphylaxis Drug Allergy Activ e Reason For Referral No Information Medications Medication SIG (Take, Route, Frequency, Duration) Notes Start Date End Date Status Multivitamin - 1 tablet Orally Once a day Active Bactrim 400-80 MG 1 tablet Orally Once a day Active Pravastatin Sodium 20 MG 1 tablet Orally Once a day Active Levothyroxine Sodium 112 MCG 1 tablet in the morning on an empty stomach Orally Once a day Active Aspirin 81 MG 1 tablet Orally Once a day Active Metoprolol Succinate 25 MG 1 capsule Ora lly Once a day Active Social History Tobacco Use: Social History Observation Description Date Details (start date - stop date) Never Smoker NA - NA Tobacco Use/Smoking Question Answer Notes Patient is a nonsmoker Problems Problem Type SNOMED Code ICD Code Onset Dates Problem Status W/U Status Risk Notes Problem Acquired hypothyroidism (083783833) Acquired hypothyroidism (E03.9) Active confirmed Plan Of Treatment No Information Insurance Providers Payer Name Payer Address Payer Phone Subscriber Number Group Number Insured Name Patient Relationship to Insured Coverage Start Date Coverage End Date ANTH MEDICARE ADV PLAN [address] [place] [address] [id number] Lori Kahn Self - patient is the insured 4 [employer] LIFE [address] [place] [address] [phone] [id number] Lori Kahn Self - patient is the insured MEDICA[place] 2ND INS [address] [place], [place] [id number] [phone] [id number] Lori Kahn Self - patient is the insured Medical (General) History Medical History History ICD Code Arthropathy, unspecified M12.9 High blood pressure 401.9 Disorder of thyroid, unspecified E07.9 Keratoderma Q82.8 Surgical History Surgery Date(Month/Year) Abdominal Wall/Hernia 12/2022 Stomach/Removal 03/2022 Stomach Leak Repair 11/2021 Knee Surgery 12/2020 Bariatric Sx 11/2020 Hospitalization History Reason Date(Month/Year) See above
--- OUTSIDE RECORDS SUMMARY | 2025-03-19 12:33 | XMS_ITS | Encounter Summary ---
Author Organization [facility] Address [address] [place] [address] Care Team Providers Care Chef Assistant Name Role Phone Holland Lyons DO Primary Care Provider Source Comments In the event this information is protected by the Federal Confidentiality of Alcohol and Drug AbusePatient Records regulations: The Federal rules restrict any use of the information to criminally investigate or prosecute any alcohol or drug abuse patient.[facility] Encounter Details Date Type Department Care Team (Late st Contact Info) Description 07/04/2017 Ophth Exam Ophthalmology [address] [place] [id number] Vance Schmidt (Res)(Hist) [address] [place] [address] Social History Tobacco Use Types Packs/Day [...] documented as of this encounter Care Teams Chef Assistant Relationship Specialty Start Date End Date Holland Lyons DO [address] [place] [address] PCP - General Family Medicine 03/06/16 documented as of this encounter
--- OUTSIDE RECORDS SUMMARY | 2025-03-19 12:33 | XMS_ITS | Encounter Summary ---
Author Organization [facility] Address [address] [place] [address] Care Team Providers Care Undercutter Name Role Phone Holland Lyons DO Primary Care Provider Source Comments In the event this information is protected by the Federal Confidentiality of Alcohol and Drug AbusePatient Records regulations: The Federal rules restrict any use of the information to criminally investigate or prosecute any alcohol or drug abuse patient.[facility] Encounter Details Date Type Department Care Team (Late st Contact Info) Description 02/16/2022 Get Medical Advice General Surgery [address] [place] [phone] Jesús Ca MD [address] [place] [address] Surgery Social History Tobacco Use Types Packs/Day [...] N ot on file 11/27/2021 Data from: https://www.neighborhoodatlas.medicine.[facility].edu/. Last address used for calculation [address] [...] of Assessment Author No 07/06/2017 3:45 PM Norsi March RN * Are you blind or [...] documented as of this encounter Care Teams Undercutter Relationship Specialty Start Date End Date Holland Lynos DO [address] [place] [address] PCP - General Family Medicine 03/06/16 documented as of this encounter
--- OUTSIDE RECORDS SUMMARY | 2025-03-19 12:33 | XMS_ITS | Encounter Summary ---
Author Organization [facility] Address [address] [place] [address] Care Team Providers Care Repairer Recreational Vehicle Name Role Phone Holland Lyons DO Primary Care Provider Source Comments In the event this information is protected by the Federal Confidentiality of Alcohol and Drug AbusePatient Records regulations: The Federal rules restrict any use of the information to criminally investigate or prosecute any alcohol or drug abuse patient.[facility] Encounter Details Date Type Department Care Team (Late st Contact Info) Description 01/19/2022 Get Medical Advice General Surgery [address] [place] [phone] Jesús Ca MD [address] [place] [address] Home health nurse Social History Tobacco Use Types Packs/Day Years [...] N ot on file 11/27/2021 Data from: https://www.neighborhoodatlas.medicine.[facility] [place].[facility]/. Last address used for calculation [address] [...] documented as of this encounter Care Teams Repairer Recreational Vehicle Relationship Specialty Start Date End Date Holland Lyons DO [address] [place] [address] PCP - General Family Medicine 03/06/16 documented as of this encounter
--- OUTSIDE RECORDS SUMMARY | 2025-03-19 12:33 | XMS_ITS | Encounter Summary ---
Author Organization [facility] Address [address] [place] [address] Care Team Providers Care Cattyman Name Role Phone Holland Lyons DO Primary Care Provider Source Comments In the event this information is protected by the Federal Confidentiality of Alcohol and Drug AbusePatient Records regulations: The Federal rules restrict any use of the information to criminally investigate or prosecute any alcohol or drug abuse patient.[facility] Encounter Details Date Type Department Care Team (Late st Contact Info) Description 11/15/2017 Get Medical Advice General Surgery [address] [place] [address] Sandor Marks MD [address] [place] [address] RE: Non-Urgent Medical Question Social History [...] documented as of this encounter Care Teams Cattyman Relationship Specialty Start Date End Date Holland Lyons DO [address] [place] [address] PCP - General Family Medicine 03/06/16 documented as of this encounter
--- OUTSIDE RECORDS SUMMARY | 2025-03-19 12:33 | XMS_ITS | Encounter Summary ---
Author Organization [facility] Address [facility]-[id number] [address] [place] [address] Care Team Providers Care Logistics Support Name Role Phone Holland Lyons DO Primary Care Provider +[phone] Encounter Details Date Type Department Care Team (Late st Contact Info) Description 10/05/2023 Orders Only [facility] - Family Medicine [address] [place] [address] Holland Lyons DO [address], [facility] [place] [address] Social History Tobacco Use Types Packs/Day Years [...] often do you attend chur ch or sabianist services? More than 4 times per year 12/22/2022 Do you belong to any clubs o r organizations such as taoist groups, unions, fraternal or athletic groups, or [...] Answer Date Recorded Total Score 0 06/17/2023 [facility] of Occupat ional Health - Occupational Stress [...] Recorded Do you need help finding a [facility] career center and/or a training [...] EDT [facility] [address] [facility] [address] [place] [phone] Griselda Moore, GRAIN THRESHER-QUALITY ASSURANCE PRACTICE MANAGER [address], [facility] [address] [place] [address] 11/08/2025 2:00 PM EDT Office Visit [facility] - Family Medicine [address] [place] [phone] documented as of this encounter Visit Diagnoses Not on filedocumented in this encounter Additional Health Concerns Assessment Noted Time PHQ-9 Depression Total Score: 0 06/17/20 23 10:36 AM EST documented as of this encounter Care Teams Logistics Support Relationship Specialty Start Date End Date Holland Lyons DO [address], [place] [address] PCP - General Family Medicine 06/13/19 documented as of this encounter
--- OUTSIDE RECORDS SUMMARY | 2025-03-19 12:33 | XMS_ITS | Encounter Summary ---
Author Organization [facility] tem Address [facility]-[id number] [address] [place] [address] Care Team Providers Care Associate Doctor Name Role Phone Holland Lyons DO Primary Care Provider [phone] Encounter Details Date Type Department Care Team (Late st Contact Info) Description 04/16/2023 Orders Only [facility] - Family Medicine [address] [place] [address] Holland Lyons DO [address], [facility] [place] [address] Social History Tobacco Use Types Packs/Day Years [...] often do you attend chur ch or restorationism services? More than 4 times per year 12/22/2022 Do you belong to any clubs o r organizations such as mandaen groups, unions, fraternal or athletic groups, or [...] Answer Date Recorded Total Score 0 12/22/2022 [facility] of Occupat ional Health - [...] Recorded Do you need help finding a [facility] career center and/or a training program? No [...] Office Visit [facility] [place] [address] [facility] [address] [place] [phone] Griselda Moore, MEDICAL CASE MANAGER-ROAD SUPERVISOR OF ENGINES [address], [facility] [address] [place] [address] 11/08/2025 2:00 PM EDT Office Visit [facility] - Family Medicine [address] [place] [address] documented as of this encounter Visit Diagnoses Not on filedocumented in this encounter Additional Health Concerns Assessment Noted Time PHQ-9 Depression Total Score: 0 12/23/19 23 11:28 AM EDT documented as of this encounter Care Teams Associate Doctor Relationship Specialty Start Date End Date Holland Lyons DO [address], [place] [address] PCP - General Family Medicine 06/13/19 documented as of this encounter
--- OUTSIDE RECORDS SUMMARY | 2025-03-19 12:33 | XMS_ITS | Encounter Summary ---
Author Organization [facility] Address [address] [place] [address] Care Team Providers Care Ict Systems Test Engineer Name Role Phone Holland Lyons DO Primary Care Provider Source Comments In the event this information is protected by the Federal Confidentiality of Alcohol and Drug AbusePatient Records regulations: The Federal rules restrict any use of the information to criminally investigate or prosecute any alcohol or drug abuse patient.[facility] Encounter Details Date Type Department Care Team (Late st Contact Info) Description 01/22/2022 Patient Msg General Surgery [address] [phone] Lily Holm, RN MEDS Social History Tobacco Use Types Packs/Day Years [...] N ot on file 11/27/2021 Data from: https://www.neighborhoodatlas.medicine.[facility]/. Last address used for calculation [address] [...] Noris March, IFRAH * Do you have serious difficulty walking [...] documented as of this encounter Care Teams Ict Systems Test Engineer Relationship Specialty Start Date End Date Holland LyonsDO [address] [place] [address] PCP - General Family Medicine 03/06/16 documented as of this encounter
--- OUTSIDE RECORDS SUMMARY | 2025-03-19 12:33 | XMS_ITS | Clinical Summary ---
Author Organization [facility] Address [address], [address] [place] [address] Care Team Providers Care Technical Instructor Name Role Phone Unavailable Primary Care Provider Unavailabl e Allergies Active Allergy Reactions Criticality Noted Date Comments Codeine 07/11/2012 Medications Levothyroxine Sodium (LEVOXYL PO) Take by mouth. Active Active Problems Problem Noted Date Diagnosed Date Other plastic surgery for unacceptable cosmetic appearance 07/18/2012 Social History Tobacco Use Types Packs/Day Years Used Date Smoking Tobacco: Never Smokeless Tobacco: Never Alcohol Use Standard Drinks/Week Comments No 0 (1 standard drink = 0.6 oz pur e alcohol) Comments Unknown Sex and Gender Information Value Date Recorded Sex Assigned at Not on file Legal Sex Female 12:49 PM EST Gender Identity Not on file Sexual Orientation Not on file Plan of Treatment Not on file Insurance [employer]ET[employer] MEDICARE [facility]
--- OUTSIDE RECORDS SUMMARY | 2025-03-19 12:33 | XMS_ITS | Encounter Summary ---
Author Organization [facility] Address [address] [place] [address] Care Team Providers Care Games Dealer Name Role Phone Holland Lyosn DO Primary Care Provider Source Comments In the event this information is protected by the Federal Confidentiality of Alcohol and Drug AbusePatient Records regulations: The Federal rules restrict any use of the information to criminally investigate or prosecute any alcohol or drug abuse patient.[facility] Encounter Details Date Type Department Care Team (Late st Contact Info) Description 11/12/2017 Get Medical Advice Rheumatology [address] [place] [address] Carlos Alberto Monge (Fel)(Hist) [address] [place] [address] Medication Question (Not Renewal) Social History Tobacco [...] documented as of this encounter Care Teams Games Dealer Relationship Specialty Start Date End Date Holland Lyons DO [address] [place] [address] PCP - General Family Medicine 03/06/16 documented as of this encounter
--- OUTSIDE RECORDS SUMMARY | 2025-03-19 12:33 | XMS_ITS | Encounter Summary ---
Author Organization [facility] Address [address] [place] [address] Care Team Providers Care Canal Boat Operator Name Role Phone Holland Lyons DO [...] Medical Advice General Surgery [address] [place] [phone] Jesús Ca MD [address] [place] [address] Surgery Social History Tobacco Use Types Packs/Day [...] N ot on file 11/27/2021 Data from: https://www.neighborhoodatlas.medicine.[facility].edu/. Last address used for calculation [address] [...] documented as of this encounter Care Teams Canal Boat Operator Relationship Specialty Start Date End Date Holland Lyons DO [address] [place] [address] PCP - General Family Medicine 03/06/16 documented as of this encounter
--- OUTSIDE RECORDS SUMMARY | 2025-03-19 12:33 | XMS_ITS | Encounter Summary ---
Author Organization [facility] Address [address] [place] [address] Care Team Providers Care Suction Plate Roller Hand Name Role Phone Holland Lyons DO Primary Care Provider Source Comments In the event this information is protected by the Federal Confidentiality of Alcohol and Drug AbusePatient Records regulations: The Federal rules restrict any use of the information to criminally investigate or prosecute any alcohol or drug abuse patient.[facility] Encounter Details Date Type Department Care Team (Late st Contact Info) Description 01/06/2018 Get Medical Advice Endocrinology [address] [phone] Kendra Dubois MD [address] [place] [address] Medication Question (Not Renewal) Social History Tobacco [...] Noris March RN documented in this encounter Miscellaneous Notes * Telephone Encounter - Hunter Reyes - 01/10/2018 10:04 AM EDT The following approved medication requests have been transmitted electronically. Signed Prescriptions Disp Refills Insulin Melber, Disposable, (BD ULTRA-FINE ABI PEN NEEDLE) 32 gauge x 5/32 ndle 100 Each 3 Sig: Use as directed with 1 subcutaneous injection daily. Hunter Reyes MD * Telephone Encounter - Lupe Andres) - 01/07/2018 3:39 PM EDT Pharmacy escripts requesting the following refill: Pending Prescriptions Disp Refills PEN NEEDLE, DIABETIC 32 GAUGE X 5/32 Patient's last f/u appointment 01/06/18 Next f/u appointment 05/04/18 Please review and advise. Lupe Andres Ma documented in this encounter Plan of Treatment Not on file documented as of this encounter Visit Diagnoses Not on filedocumented in this encounter Additional Health Concerns Infection Onset Date Last Indicated Resolved Time COVID-19 Rule-Out 12/13/2021 12/13/2021 12/13/2021 6:31 AM EDT COVID-19 Rule-Out 03/03/2022 03/03/2022 03/03/2022 9:43 AM EDT documented as of this encounter Care Teams Suction Plate Roller Hand Relationship Specialty Start Date End Date Holland Lyons DO [address] [place] [address] PCP - General Family Medicine 03/06/16 documented as of this encounter
--- OUTSIDE RECORDS SUMMARY | 2025-03-19 12:33 | XMS_ITS | Encounter Summary ---
[id number] [address] [place] [address] Care Team Providers Care Global Cmo Name Role Phone SerenaHolland Jojo HARVEY Primary Care Provider + [phone] Encounter Details Date Type Department Care Team (Late st Contact Info) Description 10/05/2023 Orders Only [facility] - Family Medicine [address] [place] [address] Doreen Vera CMA Closed nondisplaced fracture of anterior process of right calcaneus with routine healing, subsequent encounter; Postmenopausal Social History Tobacco Use Types Packs/Day Years [...] often do you attend chur ch or mosque services? More than 4 times per year 12/22/2022 Do you belong to any clubs o r organizations such as voodoo groups, unions, fraternal or athletic groups, or [...] Date Recorded Total Score 0 06/17/2023 [facility] - Occupational Stress Questionnaire Answer [...] Recorded Do you need help finding a [facility] and/or a training program? [...] EDT Office Visit [facility] [place] [address] [facility] [address] [place] [phone] Griselda Moore, ELEVATOR CONSTRUCTOR ELECTRIC-ASSISTANT BRANCH OPERATIONS MANAGER [address], [facility] [address] [place] [address] 11/08/2025 2:00 PM EDT Office Visit [facility] - Family Medicine [address] [place] [phone] documented as of this encounter Procedures Procedure Name Priority Date/Time Associated Diagnosis Comments DEXA SCAN CENTRAL SKELETAL Routine 10/05/2023 2:53 PM EDT Closed nondisplaced fracture of anterior process of right calcaneus with routine healing, subsequent encounter Postmenopausal documented in this encounter Results * Dexa scan central skeletal (10/05/2023 2:53 PM EDT) Anatomical Region Laterality Modality N/A Radiographic Ashlee ging us Holland Lyons DO IMG DXA ORDERABLES Final Res ult documented in this encounter Visit Diagnoses Diagnosis Closed nondisplaced fracture of anterior process of right calcaneus with routine healing, subsequent encounter Postmenopausal Asymptomatic postmenopausal status (age-related) (natural) documented in this encounter Additional Health Concerns Assessment Noted Time PHQ-9 Depression Total Score: 0 06/17/20 23 10:36 AM EST documented as of this encounter Care Teams Global Cmo Relationship Specialty Start Date End Date Holland Lyons DO [address] [place] [address] PCP - General Family Medicine 06/13/19 documented as of this encounter
--- OUTSIDE RECORDS SUMMARY | 2025-03-19 12:33 | XMS_ITS | Encounter Summary ---
Author Organization [facility] Address [id number] [address] [place] [address] Care Team Providers Care Sand Technician Name Role Phone Serena Holland Uribe DO Primary Care Provider + [phone] Reason for Visit * Reason Onset Date Comments Phone Encounter 06/17/2023 Encounter Details Date Type Department Care Team (Late st Contact Info) Description 06/17/2023 Telephone [facility] Internal Medicine - Family Medicine [address] [place] [address] Tracey Marquez CMA Phone Encounter Social History Tobacco Use Types Packs/Day Years [...] often do you attend chur ch or alevism services? More than 4 times per year 12/22/2022 Do you belong to any clubs o r organizations such as jew groups, unions, fraternal or athletic groups, or [...] Answer Date Recorded Total Score 0 06/17/2023 [facility] Occupat ional Health - [...] a purpose and direction in my life. Randeen gly Agree 12/22/2022 Comments No Sex and Gender Information Value Date Recorded Sex Assigned at Not on file Legal Sex Female 11:46 AM EDT Gender Identity Not on file Sexual Orientation Not on file documented as of this encounter Miscellaneous Notes * Telephone Encounter - Tracey Marquez CMA - 06/17/2023 5:04 PM EST Pt [facility] does not do them anymore. documented in this encounter Plan of Treatment Upcoming Encounters Date Type Department Care Team (Late st Contact Info) Description 04/18/2025 3:40 PM EDT Office Visit [facility] [place] [address] [facility] [address] [place] [phone] Griselda Moore, SATELLITE INSTRUCTION FACILITATOR-POLYMERIZATION OVEN OPERATOR [address], [facility] [address] [place] [address] 11/08/2025 2:00 PM EDT [facility] [address] [place] [address] documented as of this encounter Visit Diagnoses Not on filedocumented in this encounter Additional Health Concerns Assessment Noted Time PHQ-9 Depression Total Score: 0 06/17/20 23 10:36 AM EST documented as of this encounter Care Teams Sand Technician Relationship Specialty Start Date End Date Holland Lyons DO [address], [facility] [address] PCP - General Family Medicine 06/13/19 documented as of this encounter
--- OUTSIDE RECORDS SUMMARY | 2025-03-19 12:34 | XMS_ITS | Encounter Summary ---
Author Organization [facility] Address [address] [place] [address] Care Team Providers Care Cost And Sales Record Supervisor Name Role Phone Holland Lyons DO Primary Care Provider Source Comments In the event this information is protected by the Federal Confidentiality of Alcohol and Drug AbusePatient Records regulations: The Federal rules restrict any use of the information to criminally investigate or prosecute any alcohol or drug abuse patient.[facility] Encounter Details Date Type Department Care Team (Late st Contact Info) Description 01/21/2023 Get Medical Advice General Surgery [address] [phone] Marta Hughes, IRISH.FIELD CONTRACTOR [address] [address] Pain Social History Tobacco Use Types Packs/Day Years [...] is lower risk 9 11/23/2022 Data from: https://www.neighborhoodatlas.medicine.[facility]/. Last address used for calculation [address] 11/23/2022 Comments No Sex and Gender Information Value Date Recorded Sex Assigned at Female 09/24/2021 6:18 PM EDT Legal Sex Female 2:46 PM EDT Gender Identity Female 09/24/2021 6:18 PM EDT Sexual Orientation Straight 09/24/2021 6: 18 PM EDT documented as of this encounter Functional Status * Are you deaf or do you have serious difficulty hearing? Answer Date of Assessment Author No 01/04/2023 11:23 AM Afua Flores RN * Are you blind or do you have serious difficulty seeing, even when wearing glasses? Answer Date of Assessment Author No 01/04/2023 11:23 AM Afua Flores RN * Do you have serious difficulty walking or climbing stairs? Answer Date of Assessment Author No 01/04/2023 11:23 AM Afua Flores RN * Do you have difficulty dressing or bathing? Answer Date of Assessment Author No 01/04/2023 11:23 AM Afua Flores RN * Because of a physical, mental, or emotional condition, do you have difficulty doing errands alone such as visiting a doctor's office or shopping? Answer Date of Assessment Author No 01/04/2023 11:23 AM Afua Flores RN documented as of this encounter Mental Status * Because of a physical, mental, or emotional condition, do you have serious difficulty concentrating, remembering, or making decisions? Answer Entry Date Author No 01/04/2023 11:23 AM Afua Flores RN documented in this encounter Plan of Treatment Not on file documented as of this encounter Visit Diagnoses Not on filedocumented in this encounter Care Teams Cost And Sales Record Supervisor Relationship Specialty Start Date End Date Holland Lyons DO [address] [place] [address] PCP - General Family Medicine 03/06/16 documented as of this encounter
--- OUTSIDE RECORDS SUMMARY | 2025-03-19 12:34 | XMS_ITS | Encounter Summary ---
Author Organization [employer] [facility] Address [id number] [address] [place] [address] Care Team Providers Care Cyber Workforce Developer And Manager Name Role Phone Holland Lyons DO Primary Care Provider [phone] Encounter Details Date Type Department Care Team (Late st Contact Info) Description 06/21/2019 Refill [facility] [address] [phone] Jillian Caba, IFRAH Social History Tobacco Use Types Packs/Day Years Used Date Smoking Tobacco: Former Smokeless Tobacco: Never Alcohol Use Standard Drinks/Week Comments Yes 0 (1 standard drink = 0.6 oz pur e alcohol) Childcare Answer Date Recorded Childcare Unknown 12/14/2018 Employment Answer Date Recorded Employment Unknown 12/14/2018 Comments Unknown Sex and Gender Information Value Date Recorded Sex Assigned at Not on file Legal Sex Female 11:46 AM EDT Gender Identity Not on file Sexual Orientation Not on file documented as of this encounter Plan of Treatment Upcoming Encounters Date Type Department Care Team (Late Contact Info) Description 04/18/2025 3:40 PM EDT Office Visit [facility] [place] [address] [phone] Griselda Moore, MAMMOGRAPHY TECH-NON DESTRUCTIVE EVALUATION MANAGER [address], [facility] [address] [place] [address] 11/08/2025 2:00 PM EDT Office Visit [facility] - Family Medicine [address] [place] [address] documented as of this encounter Visit Diagnoses Diagnosis Hypokalemia- Primary Hypopotassemia documented in this encounter Care Teams Cyber Workforce Developer And Manager Relationship Specialty Start Date End Date Holland Lyons DO [address], [place] [address] PCP - General Family Medicine 06/13/19 documented as of this encounter
--- OUTSIDE RECORDS SUMMARY | 2025-03-19 12:34 | XMS_ITS | Encounter Summary ---
Author Organization [employer] [facility] Address [id number] [address] [place] [address] Care Team Providers Care Supervisor Gear Repair Name Role Phone Holland Lyons Primary Care Provider Encounter Details Date Type Department Care Team (Late Contact Info) Description 06/21/2019 Telephone [facility] Cardiology [address] [place] [phone] Jillian Caba, IFRAH Social History Tobacco [...] Visit [facility] Monica [address] [phone] Griselda Moore, MANAGER MECHANICAL MAINTENANCE-AGRONOMY MANAGER [address], [facility] [address] [place] [address] 11/08/2025 2:00 PM EDT Office Visit [facility] - Family Medicine [address] [place] [address] documented as of this encounter Visit Diagnoses Not on filedocumented in this encounter Care Teams Supervisor Gear Repair Relationship Specialty Start Date End Date Holland Lyons DO [address], [place] [address] PCP - General Family Medicine 06/13/19 documented as of this encounter
--- OUTSIDE RECORDS SUMMARY | 2025-03-19 12:34 | XMS_ITS | Encounter Summary ---
Author Organization [facility] Address [address] [place] [address] Care Team Providers Care Animal Assisted Therapist Name Role Phone Holland Lyons DO Primary Care Provider Source Comments In the event this information is protected by the Federal Confidentiality of Alcohol and Drug AbusePatient Records regulations: The Federal rules restrict any use of the information to criminally investigate or prosecute any alcohol or drug abuse patient.[facility] Encounter Details Date Type Department Care Team (Late st Contact Info) Description 09/07/2016 Patient Msg Pulmonary [address] [place] [address] [place] [address] [address] [place], [place] [id number] Appointment Cancellation Request Social History Tobacco Use Types Packs/Day Years Used Date Smoking Tobacco: Passive Smoke Exposure - Never Smoker Cigarettes 0.5 5 - 04/13/2000 Smokeless Tobacco: Never Alcohol Use Standard Drinks/Week Comments No 0 (1 standard drink = 0.6 oz pur e alcohol) Comments No Sex and Gender Information Value Date Recorded Sex Assigned at Female 09/24/2021 6:18 PM EDT Legal Sex Female 2:46 PM EDT Gender Identity Female 09/24/2021 6:18 PM EDT Sexual Orientation Straight 09/24/2021 6: 18 PM EDT documented as of this encounter Functional Status * Are you deaf or do you have serious difficulty hearing? Answer Date of Assessment Author No 07/21/2016 5:38 PM Arcenio Kelley RN * Are you blind or do you have serious difficulty seeing, even when wearing glasses? Answer Date of Assessment Author No 07/21/2016 5:38 PM Arcenio Kelley RN * Do you have serious difficulty walking or climbing stairs? Answer Date of Assessment Author No 07/21/2016 5:38 PM Arcenio Kelley RN * Do you have difficulty dressing or bathing? Answer Date of Assessment Author No 07/21/2016 5:38 PM Arcenio Kelley RN * Because of a physical, mental, or emotional condition, do you have difficulty doing errands alone such as visiting a doctor's office or shopping? Answer Date of Assessment Author No 07/21/2016 5:38 PM Arcenio Kelley RN documented as of this encounter Mental Status * Because of a physical, mental, or emotional condition, do you have serious difficulty concentrating, remembering, or making decisions? Answer Entry Date Author No 07/21/2016 5:38 PM Arcenio Kelley RN documented in this encounter Plan of Treatment Not on file documented as of this encounter Visit Diagnoses Not on filedocumented in this encounter Additional Health Concerns Infection Onset Date Last Indicated Resolved Time COVID-19 Rule-Out 12/13/2021 12/13/2021 12/13/2021 6:31 AM EDT COVID-19 Rule-Out 03/03/2022 03/03/2022 03/03/2022 9:43 AM EDT documented as of this encounter Care Teams Animal Assisted Therapist Relationship Specialty Start Date End Date Holland Lyons DO [address] [place] [address] PCP - General Family Medicine 03/06/16 documented as of this encounter
--- OUTSIDE RECORDS SUMMARY | 2025-03-19 12:34 | XMS_ITS | Encounter Summary ---
Author Organization [facility] Address [address] [place] [address] Care Team Providers Care Terra Cotta Roofer Helper Name Role Phone Holland Lyons MD Primary Care Provider [phone] Encounter Details Date Type Department Care Team (Late st Contact Info) Description 10/19/2024 External Result Encounter [facility] [address] [place] [address] Jr. Leonadr Ac, [address] [place] [address] Social History Tobacco Use Types Packs/Day Years [...] Visit [facility] [address] [place] [phone] Gilberto Braun, CREATIVE TECHNOLOGIST [address] [place], [place] [phone] 03/27/2025 8:30 AM EDT Treatment [facility] [address] [place] [address] Isis Dave, SENIOR QUALITY CONTROL INSPECTOR 03/30/2025 7:00 AM EDT Treatment [facility] [address] [place] [address] Corina Daveissa, SENIOR QUALITY CONTROL INSPECTOR 04/03/2025 8:30 AM EDT Treatment [facility] [address] [place] [address] Isis Dave, SENIOR QUALITY CONTROL INSPECTOR 04/05/2025 8:30 AM EDT Treatment [facility] [address] [place] [address] Desmond Le, SENIOR QUALITY CONTROL INSPECTOR 04/10/2025 8:30 AM EDT Treatment [facility] [address] [place] [address] Isis Dave, SENIOR QUALITY CONTROL INSPECTOR 04/13/2025 7:00 AM EDT Treatment [facility] [address] [place] [address] Isis Dave, SENIOR QUALITY CONTROL INSPECTOR 04/17/2025 10:30 AM EDT Treatment [facility] [address] [place] [address] Isis Dave, SENIOR QUALITY CONTROL INSPECTOR 04/20/2025 7:00 AM EDT Treatment [facility] [address] [place] [address] Elvira Martin, PT 04/24/2025 8:30 AM EDT Treatment [facility] [address] [place] [address] Isis Dave, SENIOR QUALITY CONTROL INSPECTOR 04/27/2025 7:00 AM EDT Treatment [facility] [address] [place] [address] Isis Dave, SENIOR QUALITY CONTROL INSPECTOR 05/01/2025 8:30 AM EDT Treatment [facility] [address] [place] [address] Isis Dave, SENIOR QUALITY CONTROL INSPECTOR 05/04/2025 7:00 AM EDT Treatment [facility] [address] [place] [address] Elvira Martin, PT documented as of this encounter Procedures Procedure Name Priority Date/Time Associated Diagnosis Comments CBC WITH AUTO DIFFERENTIAL Routine 12/11/2024 1:13 PM EDT BASIC METABOLIC PANEL Routine 12/11/2024 1:13 PM EDT MR SHOULDER LEFT WO IV CONTRAST 10/19/2024 12:36 PM EDT documented in this encounter Results * (ABNORMAL) Basic metabolic panel (12/11/2024 1:13 PM EDT) Sodium 140 134 - 146 mmol/L [facility] Potassium, Bld 4.1 3.5 - 5.0 mmol/L [facility] Chloride 98 98 - 109 mmol/L [facility] Carbon Dioxide 34(H) 22 - 32 mmol/L [facility] Anion Gap 8 5 - 15 mmol/L [facility] BUN 28(H) 5 - 23 mg/dL [facility] Creatinine 1.31(H) 0.40 - 1.00 mg/dL [facility] Comment:METHOD TRACEABLE TO IDMS STANDARD Glucose 97 65 - 99 mg/dL [facility] Calcium 10.0 8.5 - 10.5 mg/dL [facility] EGFR 47(L) >=60 ml/min/1.7 3sq.m [facility] Comment: Reported eGFR is based on the CKD-EPI 2020 equation that does not use a race coefficient. Print requisition?->No PERFORMED AT [facility] [address],[place] [address] 12/11/2024 1:13 PM EDT 12/11/2024 6:06 PM EDT Gilberto Braun NP LAB BLOOD ORDERABLES Final Resu lt [facility] * (ABNORMAL) CBC auto differential (12/11/2024 1:13 PM EDT) WHITE BLOOD CELL COUNT, WBC 6.4 4 - 11 x10E9/L [facility] RED BLOOD CELL COUNT, RBC 4.50 3.8 - 5.2 X10E12/L [facility] HEMOGLOBIN 12.7 11.7 - 15.5 g/dL [facility] HEMATOCRIT 37.8 35 - 47 % [facility] MEAN CELL VOLUME, MCV 84 80 - 100 fL [facility] MEAN CELL HEMOGLOBIN, MCH 28.2 27 - 34 pg [facility] MEAN CELL HEMOGLOGIN CONCENTRATION, MCHC 33.5 32 - 36 g/dL [facility] RED CELL DISTRIBUTION WIDTH, RDW 16.0(H) 11.5 - 15 % [facility] PLATELET COUNT 239 150 - 450 X10E9/L [facility] MEAN PLATELET VOLUME, MPV 8.6 7 - 12 fL [facility] % NEUTROPHILS 67.2 % [facility] % LYMPHOCYTES 26.9 % [facility] % MONOCYTES 5.0 % [facility] % EOSINOPHILS 0.5 % [facility] % BASOPHILS 0.4 % [facility] ABSOLUTE NEUTROPHIL 4.3 1.5 - 6.6 10*3/uL [facility] ABSOLUTE LYMPHOCYTE 1.7 1.0 - 3.5 10*3/uL [facility] ABSOLUTE MONOCYTE 0.3 0.0 - 0.9 10*3/uL [facility] ABSOLUTE EOSINOPHIL 0.0 0.0 - 0.4 10*3/uL [facility] ABSOLUTE BASOPHIL 0.0 0.0 - 0.2 10*3/uL [facility] DIFFERENTIAL TYPE AUTOMATED DIFFERENTIAL [facility] Comment: PERFORMED AT [facility] [address],[place] [address] 12/11/2024 1:13 PM EDT 12/11/2024 5:46 PM EDT Gilberto Braun NP LAB BLOOD ORDERABLES Final Resu lt [facility] * MR shoulder left wo IV contrast (10/19/2024 12:36 PM EDT) Anatomical Region Laterality Modality Upper Extremities, Shoulder Left Magn etic Resonance 10/19/2024 12:3 6 PM EDT Narrative 10/19/2024 12:35 PM EDT THIS EXAM WAS PERFORMED AT [facility] MR SHOULDER LT WO CONT CLINICAL INFORMATION: 59 years old Female with left shoulder pain, concern for internal derangement. History of left rotator cuff repair on 05/25/2024. COMPARISON: None PROCEDURE: Multiplanar multisequence images of the shoulder performed. No intravenous contrast. FINDINGS: ROTATOR CUFF AND ASSOCIATED STRUCTURES Long head biceps tendon: No tear or significant tendinosis. The extra articular portion of the long head of the biceps tendon is properly situated within the bicipital groove. Rotator cuff and muscles: Supraspinatus: Small focal signal abnormality in the distal supraspinatus without significant retraction of torn muscle fibers and mild muscle atrophy. This may be related to prior surgery. Small tear would be difficult to exclude. It would alter management consider MR arthrogram follow-up. Mild fraying of the articular surface of the critical zone of the supraspinatus. Tendinosis of the intact distal supraspinatus. Infraspinatus: Abnormal signal in the distal infraspinatus without retraction of torn muscle fibers and mild muscle atrophy. Again this could be related to the prior surgery and/or fibrous tissue. Small tear would be difficult to exclude Teres minor: No tear or tendinopathy. Subscapularis: Severe tendinosis of the distal subscapularis without discrete tear. Fluid: Moderate amount of fluid in the subacromial/subdeltoid bursa. OSSEOUS STRUCTURES Acromioclavicular joint and shoulder arch: Type 2 acromion. No os acromiale. Moderate osteoarthritis of the acromioclavicular joint. No significant narrowing of the shoulder arch. Bones: No Hill-Sachs, reverse Hill-Sachs, or bony Bankart lesions. No fracture. No osteonecrosis. No suspicious osseous lesion. Tendon anchor noted within the lateral aspect humeral head. GLENOHUMERAL JOINT Joint: No significant joint effusion. Normal alignment. Cartilage: Mild diffuse chondral loss without focal defect. Labrum: Heterogeneous signal within the superior labrum suggesting nondisplaced tear. Other support structures: No capsular or ligamentous abnormality. IMPRESSION: * Abnormal signal is appreciated in the supraspinatous and infraspinatus tendons distally. Supraspinatus tendon is without retraction of torn muscle fibers and mild muscle atrophy. Findings could represent postsurgical change or fibrosis. Small tears are difficult to exclude in this setting. Please see above discussion * Diffuse rotator cuff tendinosis. 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 * Sequela of previous rotator cuff rotator cuff repair with tendon anchor in the lateral aspect humeral head. * Moderate amount of fluid in the subacromial/subdeltoid bursa. I, Tiffany Meehan MD have personally reviewed the image(s) and agree with and/or edited the report Finalized by Tfifany Meehan MD on 10/19/2024 12:35 PM Procedure Note Radiology, Radiologist, - 10/19/2024 [facility] SHOULDER [facility] WO CONT CLINICAL INFORMATION: 59 years old Female with left shoulder pain,concern for internal derangement. History of left rotator cuff repair on05/25/2024. COMPARISON: None PROCEDURE: Multiplanar multisequence images of the shoulder performed. Nointravenous contrast. FINDINGS: ROTATOR CUFF AND ASSOCIATED STRUCTURES Long head biceps tendon: No tear or significant tendinosis. The extraarticular portion of the long head of the biceps tendon is properlysituated within the bicipital groove. Rotator cuff and muscles: Supraspinatus: Small focal signal abnormality in the distal supraspinatuswithout significant retraction of torn muscle fibers and mild muscleatrophy. This may be related to prior surgery. Small tear would bedifficult to exclude. It would alter management consider MR arthrogramfollow-up. Mild fraying of the articular surface of the critical zone of thesupraspinatus. Tendinosis of the intact distal supraspinatus. Infraspinatus: Abnormal signal in the distal infraspinatus withoutretraction of torn muscle fibers and mild muscle atrophy. Again this couldbe related to the prior surgery and/or fibrous tissue. Small tear would bedifficult to exclude Teres minor: No tear or tendinopathy. Subscapularis: Severe tendinosis of the distal subscapularis withoutdiscrete tear. Fluid: Moderate amount of fluid in the subacromial/subdeltoid bursa. OSSEOUS STRUCTURES Acromioclavicular joint and shoulder arch: Type 2 acromion. No osacromiale. Moderate osteoarthritis of the acromioclavicular joint. Nosignificant narrowing of the shoulder arch. Bones: No Hill-Sachs, reverse Hill-Sachs, or bony Bankart lesions. Nofracture. No osteonecrosis. No suspicious osseous lesion. Tendon anchornoted within the lateral aspect humeral head. GLENOHUMERAL JOINT Joint: No significant joint effusion. Normal alignment. Cartilage: Mild diffuse chondral loss without focal defect. Labrum: Heterogeneous signal within the superior labrum suggestingnondisplaced tear. Other support structures: No capsular or ligamentous abnormality. IMPRESSION: * Abnormal signal is appreciated in the supraspinatous and infraspinatustendons distally. Supraspinatus tendon is without retraction of tornmuscle fibers and mild muscle atrophy. Findings could representpostsurgical change or fibrosis. Small tears are difficult to exclude inthis setting. Please see above discussion * Diffuse rotator cuff tendinosis. * Moderate osteoarthritis of the acromioclavicular and glenohumeraljoints. * Sequela of previous rotator cuff rotator cuff repair with tendon anchorin the lateral aspect humeral head. * Moderate amount of fluid in the subacromial/subdeltoid bursa. I, Tiffany Meehan MD have personally reviewed the image(s) and agree withand/or edited the report Finalized by Tiffany Meehan MD on 10/19/2024 12:35 PM us Jr. Leonard Ac DO IMG MRI PROCEDURES Taryn l Result documented in this encounter Visit Diagnoses Not on filedocumented in this encounter Care Teams Terra Cotta Roofer Helper Relationship Specialty Start Date End Date Holland Lyons MD PCP - General Family Medicine 08/06/23 documented as of this encounter
--- OUTSIDE RECORDS SUMMARY | 2025-03-19 12:34 | XMS_ITS | Encounter Summary ---
Author Organization [facility] Address [address] [place] [address] Care Team Providers Care Computer Systems Designer Name Role Phone Holland Lyons DO Primary Care Provider Source Comments In the event this information is protected by the Federal Confidentiality of Alcohol and Drug AbusePatient Records regulations: The Federal rules restrict any use of the information to criminally investigate or prosecute any alcohol or drug abuse patient.[facility] Encounter Details Date Type Department Care Team (Late st Contact Info) Description 11/13/2016 Patient Msg Medical Records [address] [place] [id number] Provider, [facility] Medical Education Program Social History Tobacco Use Types Packs/Day Years [...] documented as of this encounter Care Teams Computer Systems Designer Relationship Specialty Start Date End Date Holland Lyons DO [address] [place] [address] PCP - General Family Medicine 03/06/16 documented as of this encounter
--- OUTSIDE RECORDS SUMMARY | 2025-03-19 12:34 | XMS_ITS | Encounter Summary ---
Author Organization [facility] Address [address] [place] [address] Care Team Providers Care Tree Planter Name Role Phone Holland Lyons DO Primary Care Provider Source Comments In the event this information is protected by the Federal Confidentiality of Alcohol and Drug AbusePatient Records regulations: The Federal rules restrict any use of the information to criminally investigate or prosecute any alcohol or drug abuse patient.[facility] Encounter Details Date Type Department Care Team (Late st Contact Info) Description 03/15/2018 Patient Msg Ophthalmology [address] [phone] Laurence Ruby MD [address] [place] [address] Appointment Cancellation Request Social History Tobacco Use [...] documented as of this encounter Care Teams Tree Planter Relationship Specialty Start Date End Date Holland Lyons DO [address] [place] [address] PCP - General Family Medicine 03/06/16 documented as of this encounter
--- OUTSIDE RECORDS SUMMARY | 2025-03-19 12:34 | XMS_ITS | Encounter Summary ---
Author Organization [facility] Address [address] [place], [place] [phone] Care Team Providers Care Auto Body Builder Apprentice Name Role Phone Holland Lyons DO Primary Care Provider Source Comments In the event this information is protected by the Federal Confidentiality of Alcohol and Drug AbusePatient Records regulations: The Federal rules restrict any use of the information to criminally investigate or prosecute any alcohol or drug abuse patient.[facility] Reason for Visit * Reason Comments Radiology CT Encounter Details Date Type Department Care Team ([facility] st Contact Info) Description 01/27/2017 Radiology Radiology [address] [phone] Holland Lyonsard, DO [address] [place] [address] Social History Tobacco Use Types Packs/Day Years [...] documented as of this encounter Care Teams Auto Body Builder Apprentice Relationship Specialty Start Date End Date Holland Lyons DO [address] [facility] [place] [address] PCP - General Family Medicine 03/06/16 documented as of this encounter
--- OUTSIDE RECORDS SUMMARY | 2025-03-19 12:34 | XMS_ITS | Encounter Summary ---
Author Organization [facility] Address [id number] [address] [place] [address] Care Team Providers Care Speech And Hearing Director Name Role Phone Holland Lyons DO Primary Care Provider [phone] Encounter Details Date Type Department Care Team (Late st Contact Info) Description 07/14/2022 Orders Only [facility] Internal Medicine - Family Medicine [address] [place] [address] External, Scanning Provider Social History Tobacco Use Types Packs/Day Years Used Date Smoking Tobacco: Former Smokeless Tobacco: Never Alcohol Use Standard Drinks/Week Comments Yes 0 (1 standard drink = 0.6 oz pur e alcohol) Childcare Answer Date Recorded Childcare Unknown 12/14/2018 Employment Answer Date Recorded Employment Unknown 12/14/2018 Purpose - Life Answer Date Recorded Purpose and direction in life Unknown Comments Unknown Sex and Gender Information Value [...] [facility] [place] [address] [place] [address] Griselda Moore, IT APPLICATIONS MANAGER-PROPERTY AND SUPPLY OFFICER [address] [place] [address] 11/08/2025 2:00 PM EDT Office Visit [facility] - Family Medicine [address] [place] [address] documented as of this encounter Visit Diagnoses Not on filedocumented in this encounter Care Teams Speech And Hearing Director Relationship Specialty Start Date End Date Holland Lyons DO [address] [place] [address] PCP - General Family Medicine 06/13/19 documented as of this encounter
--- OUTSIDE RECORDS SUMMARY | 2025-03-19 12:34 | XMS_ITS | Encounter Summary ---
Author Organization [facility] Address [address] [place] [address] Care Team Providers Care Singer Back Tender Name Role Phone Holland Lyons DO Primary Care Provider Source Comments In the event this information is protected by the Federal Confidentiality of Alcohol and Drug AbusePatient Records regulations: The Federal rules restrict any use of the information to criminally investigate or prosecute any alcohol or drug abuse patient.[facility] Encounter Details Date Type Department Care Team (Late st Contact Info) Description 03/02/2018 Get Medical Advice Rheumatology [address] [place] [address] Carlos Alberto Monge (Fel)(Hist) [address] [place] [address] RE: Medication Question (Not Renewal) Social History [...] documented as of this encounter Care Teams Singer Back Tender Relationship Specialty Start Date End Date Holland Lyons DO [address] [place] [address] PCP - General Family Medicine 03/06/16 documented as of this encounter
--- OUTSIDE RECORDS SUMMARY | 2025-03-19 12:34 | XMS_ITS | Encounter Summary ---
Author Organization [facility] Address [id number] [address] [place] [address] Care Team Providers Care Manager Rail Name Role Phone Holland Lyons Primary Care Provider [phone] Encounter Details Date Type Department Care Team (Late st Contact Info) Description 09/13/2020 [facility] [address] [address] Jillian Caba, IFRAH Social History [...] on file Sexual Orientation Not on file COVID-19 Exposure Response Date Recorded In the last month, have you been in contact with someone who was confirmed or suspected to have Coronavirus / COVID-19? No / Unsure 09/12/2020 1:58 PM EST documented as of this encounter Miscellaneous Notes * Telephone Encounter - Jillian Caba RN - 09/13/2020 12:59 PM EST ----- Message from Patrick Pizarro MD sent at 09/13/2020 11:47 AM EST ----- Looks ok Moderate risk No additional workup Continue beta-feliz including AM of surgery * Telephone Encounter - Jillian Caba RN - 09/13/2020 12:59 PM EST Called and notified pt of results. Pt states her surgeon is Dr Castro at [facility]/ Luzma Mahoney. Pre op clearance faxed. Jillian Caba RN 09/13/20 1321 documented in this encounter Plan of Treatment Upcoming Encounters Date Type Department Care Team (Late st Contact Info) Description 04/18/2025 3:40 PM EDT Office Visit [facility] [address] [facility] [address] [place] [address] Griselda Moore, ENERGY AND SUSTAINABILITY MANAGER-COORDINATOR [employer] [address] [facility] [address] [place] [address] 11/08/2025 2:00 PM EDT Office Visit [facility] - Family Medicine [address] [place] [address] documented as of this encounter Visit Diagnoses Not on filedocumented in this encounter Care Teams Manager Rail Relationship Specialty Start Date End Date Holland Lyons DO [address] [place] [address] PCP - General Family Medicine 06/13/19 documented as of this encounter
--- OUTSIDE RECORDS SUMMARY | 2025-03-19 12:34 | XMS_ITS | Encounter Summary ---
Author Organization [facility] Address [address] [place] [address] Care Team Providers Care Trouble Clerk Name Role Phone Holland Lyons DO Primary Care Provider Source Comments In the event this information is protected by the Federal Confidentiality of Alcohol and Drug AbusePatient Records regulations: The Federal rules restrict any use of the information to criminally investigate or prosecute any alcohol or drug abuse patient.[facility] Encounter Details Date Type Department Care Team (Late st Contact Info) Description 02/09/2023 Get Medical Advice General Surgery [address] [phone] Marta Hughes, IRISH.AIRCRAFT WORKER [address] [phone] Supplies Social History Tobacco Use Types Packs/Day Years [...] is lower risk 9 11/23/2022 Data from: https://www.neighborhoodatlas.medicine.[facility]/. Last address used for calculation [address] [...] on filedocumented in this encounter Care Teams Trouble Clerk Relationship Specialty Start Date End Date Holland Lyons DO [address] [place] [address] PCP - General Family Medicine 03/06/16 documented as of this encounter
--- OUTSIDE RECORDS SUMMARY | 2025-03-19 12:34 | XMS_ITS | Encounter Summary ---
Author Organization [facility] Address [address] [place] [address] Care Team Providers Care Progress Developer Name Role Phone Holland Lyons DO Primary Care Provider Source Comments In the event this information is protected by the Federal Confidentiality of Alcohol and Drug AbusePatient Records regulations: The Federal rules restrict any use of the information to criminally investigate or prosecute any alcohol or drug abuse patient.[facility] Encounter Details Date Type Department Care Team (Late st Contact Info) Description 07/12/2023 Get Medical Advice General Surgery [address] [place] [address] Jean-Claude Dalton MD [address] [place] [address] Pain meds Social History Tobacco Use Types Packs/Day Years [...] place to sleep or slept in a long-term (including now)? No 05/04/2023 Area Deprivation Index Answer Date Homar rded National Score (1-100), lower number is lower ri sk 93 11/23/2022 State Score (1-10), lower number is lower risk 9 11/23/2022 Data from: https://www.neighborhoodatlas.medicine.[facility].edu/. Last address used for calculation [address] 11/23/2022 Comments No Sex and Gender [...] hearing? Answer Date of Assessment Author No 07/01/2023 5:14 PM Aidan Saleem RN * Are you blind or do you have serious difficulty seeing, even when wearing glasses? Answer Date of Assessment Author No 07/01/2023 5:14 PM Aidan Saleem RN * Do you have serious difficulty walking or climbing stairs? Answer Date of Assessment Author No 07/01/2023 5:14 PM Aidan Saleem RN * Do you have difficulty dressing or bathing? Answer Date of Assessment Author No 07/01/2023 5:14 PM Aidan Saleem RN * Because of a physical, mental, or emotional condition, do you have difficulty doing errands alone such as visiting a doctor's office or shopping? Answer Date of Assessment Author No 07/01/2023 5:14 PM Aidan Saleem RN documented as of this encounter Mental Status * Because of a physical, mental, or emotional condition, do you have serious difficulty concentrating, remembering, or making decisions? Answer Entry Date Author No 07/01/2023 5:14 PM Aidan Saleem RN documented in this encounter Plan of Treatment Not on file documented as of this encounter Visit Diagnoses Not on filedocumented in this encounter Care Teams Progress Developer Relationship Specialty Start Date End Date Holland Lyons DO [address] [facility] [place] [place] [address] PCP - General Family Medicine 03/06/16 documented as of this encounter
--- OUTSIDE RECORDS SUMMARY | 2025-03-19 12:34 | XMS_ITS | Encounter Summary ---
Author Organization [facility] tem Address [id number] [address] [place] [address] Care Team Providers Care Coat Joiner Lockstitch Name Role Phone Holland Lyons DO Primary Care Provider [phone] Encounter Details Date Type Department Care Team (Late Contact Info) Description 09/18/2022 Orders Only [facility] Internal Medicine - Family Medicine [address] [place] [address] External, Scanning Provider Social History Tobacco Use Types Packs/Day Years Used Date Smoking Tobacco: Former Smokeless Tobacco: Never Comments:15 yrs 1/2 PPD 25 yrs since quit Alcohol Use Standard Drinks/Week Comments Yes 0 (1 standard drink = 0.6 oz pur e alcohol) PHQ-2 Answer Date Recorded Total Score 1 08/13/2022 Childcare Answer Date Recorded Childcare Unknown 12/14/2018 [...] EDT Office Visit [facility] [place] [address] [place] [id number] Griselda Moore, AIRCRAFT MACHINIST-CLOTH SPREADER SCREEN PRINTING [address] [place] [address] 11/08/2025 2:00 PM EDT Office Visit [facility] Internal Medicine - Family Medicine [address] [place] [address] documented as of this encounter Procedures Procedure Name Priority Date/Time Associated Diagnosis Comments ECG 12-LEAD Routine 09/18/2022 documented in this encounter Results * ECG 12 lead (09/18/2022) us Scanning Provider External ECG ORDERABLES Final Result MANUALLY TRANSCRIBED RESULTS documented in this encounter Visit Diagnoses Not on filedocumented in this encounter Additional Health Concerns Assessment Noted Time PHQ-9 Depression Total Score: 1 08/13/19 23 7:00 AM EST documented as of this encounter Care Teams Coat Joiner Lockstitch Relationship Specialty Start Date End Date Holland Lyons DO [address] [place] [address] PCP - General Family Medicine 06/13/19 documented as of this encounter
--- OUTSIDE RECORDS SUMMARY | 2025-03-19 12:34 | XMS_ITS | Encounter Summary ---
Author Organization [facility] Address [address] [place], [place] [id number] Care Team Providers Care Health And Nutrition Specialist Name Role Phone Holland Lyons DO Primary Care Provider Source Comments In the event this information is protected by the Federal Confidentiality of Alcohol and Drug AbusePatient Records regulations: The Federal rules restrict any use of the information to criminally investigate or prosecute any alcohol or drug abuse patient.[facility] Encounter Details Date Type Department Care Team (Late st Contact Info) Description 08/04/2016 Patient Msg [facility] [address] [place] [address] Nelda Almonte MD [facility] [place] [address] Appointment Cancellation Request Social History Tobacco Use [...] documented as of this encounter Care Teams Health And Nutrition Specialist Relationship Specialty Start Date End Date Holland Lyons DO [address] [place] [address] PCP - General Family Medicine 03/06/16 documented as of this encounter
--- OUTSIDE RECORDS SUMMARY | 2025-03-19 12:34 | XMS_ITS | Encounter Summary ---
Author Organization [facility] Address [address] [place] [address] Care Team Providers Care Auto Design Detailer Name Role Phone Holland Lyons DO Primary Care Provider Source Comments In the event this information is protected by the Federal Confidentiality of Alcohol and Drug AbusePatient Records regulations: The Federal rules restrict any use of the information to criminally investigate or prosecute any alcohol or drug abuse patient.[facility] Encounter Details Date Type Department Care Team ([facility] st Contact Info) Description 05/04/2018 Get Medical Advice Rheumatology [address] [place] [address] Carlos Alberto Monge (Fel)(Hist) [address] [place] [address] RE: Medication Question (Not Renewal) Social History [...] encounter Miscellaneous Notes * Telephone Encounter - Luiza Villanueva - 05/05/2018 9:47 AM EDT Patient has been identified by name and date of : Yes . Patient calling for :medication issue. Patient's spouse called back and said patient needs new prescription, for the Pred[facility]one.. [facility] [place] [place] [phone] Pharmacy has been updated: Yes . Return call needed: Patient will not be expecting a call back from provider. Patient can be reached at : [phone] (home) documented in this encounter Plan of Treatment Not on file documented as of this encounter Visit Diagnoses Not on filedocumented in this encounter Additional Health Concerns Infection Onset Date Last Indicated Resolved Time COVID-19 Rule-Out 12/13/2021 12/13/2021 12/13/2021 6:31 AM EDT COVID-19 Rule-Out 03/03/2022 03/03/2022 03/03/2022 9:43 AM EDT documented as of this encounter Care Teams Auto Design Detailer Relationship Specialty Start Date End Date Holland Lyons DO [address] [place] [address] PCP - General Family Medicine 03/06/16 documented as of this encounter
--- OUTSIDE RECORDS SUMMARY | 2025-03-19 12:34 | XMS_ITS | Encounter Summary ---
Author Organization [facility] Address [address] [place] [address] Care Team Providers Care Fishing Captain Name Role Phone Holland Lyons DO Primary Care Provider Source Comments In the event this information is protected by the Federal Confidentiality of Alcohol and Drug AbusePatient Records regulations: The Federal rules restrict any use of the information to criminally investigate or prosecute any alcohol or drug abuse patient.[facility] Encounter Details Date Type Department Care Team (Late st Contact Info) Description 03/15/2018 Patient Msg Endocrinology [address] [phone] Kendra Dubois MD [address] [place] [address] Appointment Cancellation Request Social History Tobacco [...] documented as of this encounter Care Teams Fishing Captain Relationship Specialty Start Date End Date Holland Lyons DO [address] [place] [address] PCP - General Family Medicine 03/06/16 documented as of this encounter
--- OUTSIDE RECORDS SUMMARY | 2025-03-19 12:34 | XMS_ITS | Encounter Summary ---
Author Organization [facility] Address [address] [place] [address] Care Team Providers Care Head Bucker Name Role Phone Holland Lyons DO Primary Care Provider Source Comments In the event this information is protected by the Federal Confidentiality of Alcohol and Drug AbusePatient Records regulations: The Federal rules restrict any use of the information to criminally investigate or prosecute any alcohol or drug abuse patient.[facility] Encounter Details Date Type Department Care Team (Late st Contact Info) Description 08/12/2018 Get Medical Advice Rheumatology [address] [place] [address] Carlos Alberto Monge (Fel)(Hist) [address] [place] [address] RE: Non-Urgent Medical Question Social History Tobacco [...] as of this encounter Care Teams Head Bucker Relationship Specialty Start Date End Date Holland Lyons DO [address] [place] [address] PCP - General Family Medicine 03/06/16 documented as of this encounter
--- OUTSIDE RECORDS SUMMARY | 2025-03-19 12:34 | XMS_ITS | Encounter Summary ---
Author Organization [facility] Address [address] [place] [address] Care Team Providers Care Social Media Coordinator Name Role Phone Holland Lyons DO Primary Care Provider Source Comments In the event this information is protected by the Federal Confidentiality of Alcohol and Drug AbusePatient Records regulations: The Federal rules restrict any use of the information to criminally investigate or prosecute any alcohol or drug abuse patient.[facility] Encounter Details Date Type Department Care Team (Late st Contact Info) Description 12/17/2021 Patient Msg General Surgery [address] [phone] Provider, [facility] Upcoming appointment Social History Tobacco Use Types Packs/Day Years [...] N ot on file 11/27/2021 Data from: https://www.neighborhoodatlas.[facility]/. Last address used for calculation [address] 11/27/2021 Comments No Sex and Gender Information Value Date Recorded Sex Assigned at Female 09/24/2021 6:18 PM EDT Legal Sex Female 2:46 PM EDT Gender Identity Female 09/24/2021 6:18 PM EDT Sexual Orientation Straight 09/24/2021 6: 18 PM EDT COVID-19 Exposure Response Date Recorded In the last 10 days, have ranjit caban been in contact with someone who was confirmed or suspected to have Coronavirus/COVID-19? No / Unsure 12/13/2021 12:41 AM EDT documented as of this encounter [...] documented as of this encounter Care Teams Social Media Coordinator Relationship Specialty Start Date End Date KristinaministerioHolland salazarDO [address] [place] [address] PCP - General Family Medicine 03/06/16 documented as of this encounter
--- OUTSIDE RECORDS SUMMARY | 2025-03-19 12:34 | XMS_ITS | Encounter Summary ---
Author Organization [facility] Address [address] [place] [address] Care Team Providers Care Heel Attacher Wood Name Role Phone Holland Lyons DO Primary [...] 07/12/2023 Get Medical Advice General Surgery [address] [phone] Marta Hughes APRN.FRAMING CARPENTER [address] [phone] Pain meds Social History Tobacco Use Types [...] place to sleep or slept in a senior care (including now)? No 05/04/2023 Area Deprivation Index Answer Date Homar rded National Score (1-100), lower number is lower ri sk 93 11/23/2022 State Score (1-10), lower number is lower risk 9 11/23/2022 Data from: https://www.neighborhoodatlas.medicine.[facility].edu/. Last address used for calculation [address] 11/23/2022 Comments No Sex and Gender Information [...] on filedocumented in this encounter Care Teams Heel Attacher Wood Relationship Specialty Start Date End Date Holland Lyons DO [address] [facility] [place] [address] PCP - General Family Medicine 03/06/16 documented as of this encounter
--- OUTSIDE RECORDS SUMMARY | 2025-03-19 12:34 | XMS_ITS | Encounter Summary ---
Author Organization [facility] Address [address] [place] [address] Care Team Providers Care Bone Cooking Operator Name Role Phone Holland Lyons DO Primary Care Provider Source Comments In the event this information is protected by the Federal Confidentiality of Alcohol and Drug AbusePatient Records regulations: The Federal rules restrict any use of the information to criminally investigate or prosecute any alcohol or drug abuse patient.[facility] Encounter Details Date Type Department Care Team (Late st Contact Info) Description 04/28/2018 Patient Msg Ophthalmology [address] [phone] Arun Terry MD [address] [place] [address] Appointment Cancellation Request Social History Tobacco [...] documented as of this encounter Care Teams Bone Cooking Operator Relationship Specialty Start Date End Date Holland Lyosn DO [address] [place] [address] PCP - General Family Medicine 03/06/16 documented as of this encounter
--- OUTSIDE RECORDS SUMMARY | 2025-03-19 12:34 | XMS_ITS | Encounter Summary ---
Author Organization [facility] Address [address] [place] [address] Care Team Providers Care Marine Service Operator Name Role Phone Holland Lyons DO Primary Care Provider Source Comments In the event this information is protected by the Federal Confidentiality of Alcohol and Drug AbusePatient Records regulations: The Federal rules restrict any use of the information to criminally investigate or prosecute any alcohol or drug abuse patient.[facility] Encounter Details Date Type Department Care Team (Late st Contact Info) Description 01/21/2023 Get Medical Advice General Surgery [address] [phone] Marta Hughes, IRISH.SENIOR HR MANAGER [address] [address] Appt Social History Tobacco Use Types Packs/Day Years [...] is lower risk 9 11/23/2022 Data from: https://www.neighborhoodatlas.medicine.[facility]/. Last address used for calculation [address] [...] on filedocumented in this encounter Care Teams Marine Service Operator Relationship Specialty Start Date End Date Holland Lyons DO [address] [place] [address] PCP - General Family Medicine 03/06/16 documented as of this encounter
--- OUTSIDE RECORDS SUMMARY | 2025-03-19 12:34 | XMS_ITS | Encounter Summary ---
Author Organization [facility] Address [address] [place] [address] Care Team Providers Care Gamb Cutter Name Role Phone Holland Lyons DO Primary Care Provider Source Comments In the event this information is protected by the Federal Confidentiality of Alcohol and Drug AbusePatient Records regulations: The Federal rules restrict any use of the information to criminally investigate or prosecute any alcohol or drug abuse patient.[facility] Encounter Details Date Type Department Care Team (Late st Contact Info) Description 09/07/2016 Patient Msg Pulmonary [address] [place] [address] [place] [address] [place], [place] [phone] RE: Appointment Cancellation Request Social History Tobacco Use [...] documented as of this encounter Care Teams Gamb Cutter Relationship Specialty Start Date End Date Holland Lyons DO [address] [place] [address] PCP - General Family Medicine 03/06/16 documented as of this encounter
--- OUTSIDE RECORDS SUMMARY | 2025-03-19 12:34 | XMS_ITS | Encounter Summary ---
Author Organization [facility] Address [address] [place] [address] Care Team Providers Care Warehouse Team Leader Name Role Phone Holland Lyons DO Primary Care Provider Source Comments In the event this information is protected by the Federal Confidentiality of Alcohol and Drug AbusePatient Records regulations: The Federal rules restrict any use of the information to criminally investigate or prosecute any alcohol or drug abuse patient.[facility] Encounter Details Date Type Department Care Team (Late st Contact Info) Description 04/28/2018 Patient Msg Ophthalmology [address] [phone] Arun Terry MD [address] [place] [address] Appointment Cancellation Request Social History Tobacco [...] of Assessment Author No 07/06/2017 3:45 PM Noirs March RN * Are you blind or [...] documented as of this encounter Care Teams Warehouse Team Leader Relationship Specialty Start Date End Date Holland Lyons DO [address] [place] [address] PCP - General Family Medicine 03/06/16 documented as of this encounter
--- OUTSIDE RECORDS SUMMARY | 2025-03-19 12:34 | XMS_ITS | Encounter Summary ---
Author Organization [facility] Address [facility] [place] [address] Care Team Providers Care Supervisor Electronics Processing Name Role Phone Holland Lyons DO Primary Care Provider Source Comments In the event this information is protected by the Federal Confidentiality of Alcohol and Drug AbusePatient Records regulations: The Federal rules restrict any use of the information to criminally investigate or prosecute any alcohol or drug abuse patient.[facility] Encounter Details Date Type Department Care Team (Late st Contact Info) Description 03/03/2018 Get Medical Advice Pain Management [address] [place] [address] [place] [address] [place] [address] RE: Medication Question (Not Renewal) Social History [...] documented as of this encounter Care Teams Supervisor Electronics Processing Relationship Specialty Start Date End Date Holland Lyons DO [address] [place] [address] PCP - General Family Medicine 03/06/16 documented as of this encounter
--- OUTSIDE RECORDS SUMMARY | 2025-03-19 12:34 | XMS_ITS | Encounter Summary ---
Author Organization [facility] Address [address] [place] [address] Care Team Providers Care Grey Tender Name Role Phone Holland Lyons DO Primary Care Provider Source Comments In the event this information is protected by the Federal Confidentiality of Alcohol and Drug AbusePatient Records regulations: The Federal rules restrict any use of the information to criminally investigate or prosecute any alcohol or drug abuse patient.[facility] Encounter Details Date Type Department Care Team (Late st Contact Info) Description 01/21/2023 Get Medical Advice General Surgery [address] [phone] Marta Hughes, IRISH.MEDICAL DIRECTOR OF HOSPICE [address] [address] Appt. Social History Tobacco Use Types Packs/Day Years [...] risk 9 11/23/2022 Data from: https://www.neighborhoodatlas.medicine.[facility]/. Last address used for calculation [address] [...] on filedocumented in this encounter Care Teams Grey Tender Relationship Specialty Start Date End Date Holland Lyons DO [address] [place] [address] PCP - General Family Medicine 03/06/16 documented as of this encounter
--- OUTSIDE RECORDS SUMMARY | 2025-03-19 12:34 | XMS_ITS | Encounter Summary ---
Author Organization [facility] tem Address [id number] [address] [place] [address] Care Team Providers Care Foreman Or Supervisor And Operator Name Role Phone Holland Lyons Primary Care Provider [phone] Encounter Details Date Type Department Care Team (Late st Contact Info) Description 08/14/2022 [facility] Only [facility] Medicine - Family Medicine [address] [place] [address] Chika Bland, ELAYNE Mixed hyperlipidemia; Essential hypertension; Hypothyroidism, unspecified type Social History Tobacco Use [...] have Coronavirus / COVID-19? No / Unsure 08/13/2022 2:20 PM EST documented as of this encounter Plan of Treatment Upcoming Encounters Date Type Department Care Team (Late st Contact Info) Description 04/18/2025 3:40 PM EDT Office Visit [facility] [place] [address] [place] [address] Griselda Moore APRN-UTILITY SERVICE WORKER [address] [place] [address] 11/08/2025 2:00 PM EDT Office Visit [facility] Internal Medicine - Family Medicine [address] [place] [address] documented as of this encounter Procedures Procedure Name Priority Date/Time Associated Diagnosis Comments MULTIPLE LABS Routine 08/14/2022 TSH Routine 08/11/2022 Hypothyroidism, unspecified type T4, FREE Routine 08/11/2022 Hypothyroidism, unspecified type LIPID PROFILE Routine 08/11/2022 Mixed hyperlipidemia COMPREHENSIVE METABOLIC PANEL Routine 08/11/2022 Essential hypertension documented in this encounter Results * Multiple labs (08/14/2022) us Scanning Provider External AL IMAGING Final Result Performing Organization Address City/[facility] Co de Phone Number MANUALLY TRANSCRIBED RESULTS * (ABNORMAL) T4, free (08/11/2022) External T4 Free 0.73(A) 0.76 - 1.46 MANUALLY TRANSCRIBED RESULTS 08/11/2022 us Maci Winslow APRN-UTILITY SERVICE WORKER LAB BLOOD ORDERABLES Fin al Result Performing Organization Address City/[facility]/ZIP Co de Phone Number MANUALLY TRANSCRIBED RESULTS * (ABNORMAL) TSH (08/11/2022) External Tsh 11.855(A) 0.358 - 3.740 MANUALLY TRANSCRIBED RESULTS 08/11/2022 [facility] Lars [facility] LAB BLOOD ORDERABLES Fin al Result Performing Organization Address [facility] de Phone Number MANUALLY TRANSCRIBED RESULTS * (ABNORMAL) Comprehensive metabolic panel (08/11/2022) External Albumin 3.8 3.4 - 5.0 MAN UALLY TRANSCRIBED RESULTS External Alt Sgpt 32 15 - 37 MANUALLY TRANSCRIBED RESULTS External Anion Gap 9.9 8.5 - 10.1 MANUALLY TRANSCRIBED RESULTS External Ast 14(A) 46 - 116 MANUALL Y TRANSCRIBED RESULTS External Blood Urea Nitrogen Bun 22(A) 7 - 18 MANUALLY TRANSCRIBED RESULTS External Calcium Ca 9.4 8.5 - 10.1 MANUALLY TRANSCRIBED RESULTS External Chloride 105 98 - 107 MANUALLY TRANSCRIBED RESULTS External Co2 / Carbon Dioxide 30.6 21 - 32 MANUALLY TRANSCRIBED RESULTS External Creatinine 0.63 0.55 - 1.02 MANUALLY TRANSCRIBED RESULTS External Gfr Amer >60 MANUALLY TRANSCRIBED RESULTS External Gfr Non Amer >60 MANUALLY TRANSCRIBED RESULTS External Alkaline Phosphatase 59 46 - 116 MANUALLY TRANSCRIBED RESULTS External Glucose Fasting Or Random (Fbs) 84 74 - 106 MANUALLY TRANSCRIBED RESULTS External Potassium K 4.5 3.5 - 5.1 MANUALLY TRANSCRIBED RESULTS External Sodium Na 141 136 - 145 MANUALLY TRANSCRIBED RESULTS Total Bilirubin 0.9 0.2 - 1.0 MANU ALLY TRANSCRIBED RESULTS External Total Protein 7.3 6.4 - 8.2 MANUALLY TRANSCRIBED RESULTS 08/11/2022 [facility] LAB BLOOD ORDERABLES Fin al Result Performing Organization Address [facility] de Phone Number MANUALLY TRANSCRIBED RESULTS * (ABNORMAL) Lipid profile (08/11/2022) External Cholesterol 202(A) 0 - 200 MANUALLY TRANSCRIBED RESULTS External Cholesterol:Hdl 2.1 MANUALLY TRANSCRIBED RESULTS External Hdl Cholesterol 94(A) 40 - 60 MANUALLY TRANSCRIBED RESULTS External Ldl (Calc) 91.2 0 - 100 MANUALLY TRANSCRIBED RESULTS External Triglycerides 84 0 - 150 MANUALLY TRANSCRIBED RESULTS External Very Low Lipoprotein 16.8 MANUALLY TRANSCRIBED RESULTS 08/11/2022 us Maci Winslow OPTICAL GOODS WORKER-UTILITY SERVICE WORKER LAB BLOOD ORDERABLES Fin al Result MANUALLY TRANSCRIBED RESULTS documented in this encounter Visit Diagnoses Diagnosis Mixed hyperlipidemia Essential hypertension Unspecified essential hypertension Hypothyroidism, unspecified type documented in this encounter Additional Health Concerns Assessment Noted Time PHQ-9 Depression Total Score: 1 08/13/19 23 7:00 AM EST documented as of this encounter Care Teams Foreman Or Supervisor And Operator Relationship Specialty Start Date End Date Holland Lyons DO [address], [place] [address] PCP - General Family Medicine 06/13/19 documented as of this encounter
[2025-03-19 15:02] LABS: Thyroid Stimulating Hormone 0.804 uIU/mL (0.358-3.740)
== END 2025-03-19 12:27 | disposition home or self-care (01) ==
LOC: LAB 12:28
PROVIDERS: PCP Family Medicine
DX: I49.5 Sick sinus syndrome (principal); I48.0 Paroxysmal atrial fibrillation; R00.2 Palpitations
CPT/HCPCS: 36415; 84443

== ENCOUNTER 2025-07-03 15:22 | Outpatient (OUT) | payer MEDICARE, OTHER, MEDICAID, SELFPAY ==
--- OUTSIDE RECORDS SUMMARY | 2025-06-19 09:15 | XMS_ITS | Encounter Summary ---
Author Organization [facility] Address [address] [place] [address] Care Team Providers Care Nursing Executive Name Role Phone Holland Lyons DO Primary Care Provider Reason for Visit * ReasonCommentsFollow-upPatient is here today for a 3 month follow upAV node re-entryRapid Heart RateHypertensionHyperlipidemiaSVTVasospastic anginaNSTEMI Sinus node dysfunctionShortness of BreathPalpitations Encounter Details DateTypeDepartmentCare Team (Latest Contact Info)Wqyufcjvriw00/16/2025 9:15 AM ESTOffice Visit [facility] [address] [place] [address] Adrian Ibrahim MD [address] [place] [address] Other chest pain (Primary Dx); Wide QRS complex present on electrocardiography Social History Tobacco UseTypesPacks/DayYears UsedDateSmoking Tobacco: FormerCigarettesQuit: 1999Smokeless Tobacco: NeverAlcohol UseStandard Drinks/WeekCommentsNot Currently 0 (1 standard drink = 0.6 oz pure alcohol)[facility] UtilitiesAnswerDate RecordedIn the past 12 months has the electric, gas, oil, or water [employer] threatened to shut off services in your home?No12/16/2023Humiliation, Afraid, Rape, and Kick questionnaireAnswerDate RecordedWithin the last year, have you been afraid of your partner or ex-partner?No12/16/2023Emotionally AbusedNot on file12/16/2023 Physically AbusedNot on file12/16/2023Sexually AbusedNot on file12/16/2023 Overall Financial Resource Strain (CARDIA)AnswerDate RecordedHow hard is it for you to pay for the very basics like food, housing, medical care, and heating?Not hard at all12/16/2023UT Safety & EnvironmentAnswerDate RecordedWithin the last year, have you been afraid of your partner or ex-partner?No12/16/2023Emotionally AbusedNot on file12/16/2023hysically AbusedNot on file12/16/2023Sexually Abused Not on file12/16/2023In the past year have you been physically or sexually abused?Unrecognized value12/16/2023TransportationAnswerDate RecordedIn the past 12 months, has lack of transportation kept you from medical appointments or from getting medications?No12/16/2023Lack of Transportation (Non-Medical)Not on file 12/16/2023Housing Stability Vital SignAnswerDate RecordedUnable to Pay for Housing in the Last YearNot on file12/16/2023Number of Places Lived in the Last YearNot on file12/16/2023In the last 12 months, was there a time when you did not have a steady place to sleep or slept in ashelter (including now)?No 12/16/2023Hunger Vital SignAnswerDate RecordedWithin the past 12 months, you worried that your food would run out before you got the money to buymore.Never true12/16/2023an Out of Food in the Last YearNot on file12/16/2023 CommentsNoSex and Gender InformationValueDate RecordedSex Assigned at Mnsmte4003/08/2025 1:41 PM EDTLegal IjpWuqmcl54/29/2022 9:24 PM EDTGender Identity Puhgde6003/08/2025 1:41 PM EDTSexual OrientationHeterosexual or Rsburuzk86/04/2025 1:41 PM EDTdocumented as of this encounter Last Filed Vital Signs Vital SignReadingTime TakenCommentsBlood Dtgnixmr157/8112/ 9:13 AM EST Mjtfr280106/19/2025 9:13 AM ESTTemperature--Respiratory Rate--Oxygen Alszqkljpj96% 06/19/2025 9:13 AM ESTInhaled Oxygen Concentration--Mvhfnw62 kg (139 lb) 06/19/2025 9:13 AM SDACtyitq089 cm (5' 3 )06/19/2025 9:13 AM ESTBody Mass Index 24.6206/19/2025 9:13 AM ESTdocumented in this encounter Progress Notes * Adrian Ibrahim MD - 06/19/2025 9:15 AM EST Images from the original note were not included. [place] Electrophysiology Consult Note Reason for visit: AVNRT s/p ablation, 06/19/25 patient is doing well but she continues to experience occasional Palpitations and chest pain along with that. She also has shortness of breath with exertion. Last device check in April 2025 had shown evidence of underlying atrial over sensing which resulted in inappropriate mode switches. The atrial blanking was increased and sensitivity was adjusted. There was 1 episode of high atrial rate noted on 01/04/2025 that lasted for about 5 seconds. Recently patient had seen Aldo Wright and had reported some chest discomfort. Event monitor that was placed revealed evidence of wide-complex tachycardia that was seen on September 20, 2024 no recent. Last stress test was seen on 12/14/2023. Review of Systems Cardiovascular: Positive for chest pain, dyspnea on exertion, irregular heartbeat and palpitations. Respiratory: Positive for shortness of breath. 12/12/2024 Patient reportd lightheaded with episodes of palpitations. Denies chest pain and SOB. She feel tired and dizzy when HR is slow but feel good when walking and no issues. She persisted to have bradycardia despite coming off B-blockers. Given that, decision was made to proceed with a dual-chamber pacemaker to treat underlying sinus node dysfunction. She had a pacemaker implanted on 02/07/2024 when a [employer] device was implanted. Since then the device tracing has revealed high atrial rate with no episodes that last more than 2 minutes. Patient states she same, lightheaded, SOB, dizziness,and COELLO. Patient states she is not feeling a difference with the Flecainide. She had seen some mercury in follow-up and has been complaining of shortness of breath which has been managed with diuretics. Her weight has been on and off on this and given the endorsement of palpitations an event monitor was placed which revealed evidence of wide-complex tachycardia on 09/21/2024t 12:11 AM. Device check reveals presence of high atrial rate. Review of Systems Cardiovascular: Positive for dyspnea on exertion. Respiratory: Positive for shortness of breath. Neurological: Positive for dizziness. 12/21/23 Patient here for follow up [facility]. She gets lightheaded with episodes of [...] There were occasional PACs and PVCs noted. 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 Discussed since unable tolerate AV nancy blocking agents we need to consider EP study and will have her see dr. Ibrahim as previously mentioned. 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 ibrahim HPI: Lori Kahn is a 59 y.o. year old with past medical history [...] cardiac cath that revealed angiographically normal coronary arteriesnormal LVEF. There is an echocardiogram 09/2022 that is reflected in documentation but we are pending receiving the results. She was at cardiac rehab where there was concern for SVT event/ A-fib. she was seen by [facility] cardiology who reviewed the strips and said it is not A-fib and likely SVT/AVNRT and recommended no need for anticoagulation. She was on Ranexa for chest pain but it was determined that her symptoms were related to SVT and Ranexa was discontinued. Since then she was seen by [facility] YANE[facility] and Lopressor was increased to 25mg Q and she has felt better. Event monitor placed from 01/06/2023 to 02/05/2023 revealed presence of SVT noted on 01/14/2023 at 11:26AM consistent with what appeared to be narrow [...] to media tab for ECG Strips from [facility] rehab PMH: Past Medical History: Diagnosis Date Abnormal ECG AVNRT (AV nancy re-entry tachycardia) Hyperlipidemia Myocardial infarction (CMS/HCC) Vasospastic angina PSH: Past Surgical History: Procedure Laterality Date BARIATRIC SURGERY CARDIAC CATHETERIZATION HERNIA MESH REMOVAL INSERT / REPLACE / REMOVE PACEMAKER SH: Social Drivers of Health Tobacco Use: Medium Risk (06/19/2025) Patient History Smoking Tobacco Use: Former Smokeless Tobacco Use: Never Passive Exposure: Not on file Alcohol Use: Not At Risk (12/22/2022) Received from [facility] Q1: How often do you have a drink containing alcohol?: Never Q2: How many drinks containing alcohol do you have on a typical day when you are drinking?: Patientdoes not drink Q3: How often do you have six or more drinks on one occasion?: Never Financial Resource Strain: Low Risk (12/16/2023) Overall Financial Resource Strain (CARDIA) Difficulty of Paying Living Expenses: Not hard at all Food Insecurity: No Food Insecurity (01/11/2025) [facility] Hunger Screening Within the past 12 months we worried whether our food would run out before we got money to buy more.: Never True Within the past 12 months the food we bought just didn't last and we didn't have money to get more.: Never True Transportation Needs: No Transportation Needs (12/16/2023) Transportation Lack of Transportation (Medical): No Lack of Transportation (Non-Medical): Not on file Physical Activity: Sufficiently Active (12/22/2022) [facility] Exercise Vital Sign On average, how many days per week do you engage in moderate to strenuous exercise (like a brisk walk)?: 4 days On average, how many minutes do you engage in exercise at this level?: 50 min Stress: No Stress Concern Present (12/22/2022) [facility] [employer] - Occupational Stress Questionnaire Feeling of Stress : Not at all Social Connections: Socially Integrated (12/22/2022) Received from [facility] Social Connection and Isolation Panel In a typical week, how many times do you talk on the phone with family, friends, or neighbors?: More than three times a week How often do you get together with friends or relatives?: More than three times a week How often do you attend adventist or gnosticist services?: More than 4 times per year Do you belong to any clubs or organizations such as adventist groups, unions, fraternal or athletic groups, or school groups?: Yes How often do you attend meetings of the clubs or organizations you belong to?: Never Are you , , , , never , or living with a partner?: Intimate Partner Violence: Unknown (12/16/2023) Humiliation, Afraid, Rape, and Kick questionnaire Fear of Current or Ex-Partner: No Emotionally Abused: Not on file Physically Abused: Not on file Sexually Abused: Not on file Depression: Not at risk (01/11/2025) [facility] PHQ-2 Total Score: 0 Housing Stability: Low Risk (12/16/2023) Housing Stability Vital Sign Unable to Pay for Housing in the Last Year: Not on file Number of Places Lived in the Last Year: Not on file Unstable Housing in the Last Year: No Utilities: Not At Risk (12/16/2023) [facility] Utilities Threatened with loss of utilities: No Health Literacy: Not on file Allergies: Allergies Allergen Reactions Codeine Anaphylaxis Tolerated hydromorphone 03/2022 Anesthetics - Amide Type - Select Amino Amides Unknown Cephalexin Hives and Other Other reaction(s): Other: See Comments Peeling of skin Peeling of skin. Has received multiple courses of piperacillin/tazobactam without noted reaction inpatient. Clarithromycin Unknown Iodinated Contrast Media Unknown Tramadol Other Sulfamethoxazole Rash Trimethoprim Rash Weight: 63.1kg Visit Vitals BP 119/81 (BP Location: Left arm, Patient Position: Sitting) Pulse 67 Ht 1.6 m (5' 3 ) Wt 63 kg (139 lb) SpO2 97% BMI 24.62 kg/m?? OB Status Hysterectomy Smoking Status Former BSA 1.67 m?? Meds: Current Outpatient Medications on File Prior to Visit Medication Sig Dispense Refill apixaban (Eliquis) 5 mg tablet Take 1 tablet (5 mg) by mouth two times daily. 180 tablet 3 famotidine (Pepcid) 20 mg tablet Take 20 mg by mouth in the morning. furosemide (Lasix) 40 mg tablet Take 1 tablet (40 mg) by mouth two times daily. (Patient taking differently: Take 40 mg by mouth in the morning.) 180 tablet 3 levothyroxine (Synthroid, Levoxyl) 112 mcg tablet Take 1 tablet (112 mcg) by mouth before breakfast. 90 tablet 3 metoprolol succinate XL (Toprol-XL) 25 mg 24 hr tablet Take 1 tablet (25 mg) by mouth once daily asdirected. Do not crush or chew. 90 tablet 3 pravastatin (Pravachol) 20 mg tablet Take 1 tablet (20 mg) by mouth at bedtime. 90 tablet 3 aspirin 81 mg EC tablet Take 81 mg by mouth in the morning. (Patient not taking: Reported on 06/19/2025) CALCIUM CITRATE, BULK, MISC 1,500 mg in the morning. (Patient not taking: Reported on 06/19/2025) flecainide (Tambocor) 100 mg tablet Take 1 tablet (100 mg) by mouth two times daily. (Patient not taking: Reported on 06/19/2025) 180 tablet 3 levothyroxine (Synthroid, Levoxyl) 125 mcg tablet Take 1 tablet (125 mcg) by mouth before breakfastfor 97 doses. (Patient not taking: Reported on 06/19/2025) multivitamin tablet Take 1 tablet by mouth in the morning. (Patient not taking: Reported on 06/19/2025) spironolactone (Aldactone) 25 mg tablet Take 1 tablet (25 mg) by mouth in the morning. (Patient nottaking: Reported on 06/19/2025) 90 tablet 3 No current facility-administered medications on file prior to visit. ROS: Review of Systems Cardiovascular: Positive for near-syncope and palpitations. Neurological: Positive for dizziness and light-headedness. All other systems reviewed and are negative. Physical Exam: Constitutional General Appearance: well-nourished, well-developed, appears stated age Level of Distress: comfortable Psychiatric Mental Status: alert, normal affect Orientation: oriented to time, place, and person Insight: good judgement Eyes Lids and Conjunctivae: non-injected, no xanthelasma ENMT Ears: no lesions on external ear Nose: no lesions on external nose Oropharynx: no cyanosis, no pallor Neck Neck: supple, trachea midline Carotid Arteries: bilateral normal upstroke, no bruits Jugular Veins: normal jugular venous pressure Thyroid: not enlarged Lungs Respiratory Effort: unlabored Chest Exam: normal curvature, no thoracic deformity Auscultation: clear, no wheezing, no rales, no rhonchi Cardiovascular Rate And Rhythm: regular Heart Sounds: normal S1, normal s2, no gallop Systolic Murmur: not heard Diastolic Murmur: not heard Extremities: no cyanosis, no edema, no peripheral signs of emboli Peripheral Pulses Radial Pulse: normal Abdomen Inspection and Palpation: soft, non distended, no bruit, non tender Musculoskeletal Inspection: no joint swelling Neurologic Gait: normal gait Skin Inspection and Palpation: warm and dry Nails: no clubbing Labs: @LABRESULTS@ Lab Results Component Value Date TSH 14.80 (H) 12/16/2023 EKG: No results found for this or any previous visit (from the past 4464 hours). Echo: 09/12/20 tte Left Ventricle: Systolic function is normal with [...] size. Pericardium Pericardium was not well visualized. Stress test: Coronary angiogram: 09/2022 Diagnostic Imaging: Event monitor reveals evidence of wide-complex rhythm seen on September 20, 2024 Assessment and Plan: High atrial rate noted on device: Device is detected evidence of high atrial rate which is truly atrial fibrillation that lasted a few seconds as well as evidence of high atrial rate from over sensing also. The sensitivity was suggested for this during last device check on April 2025. Sinus node dysfunction: S/p pacemaker placement SVT (supraventricular tachycardia) s/p Ablation of AVNRT (left atrial input) -Pt had AF induced in the lab. The AVNRT would degenerate into AF. EKG noted on 12/12 is more of isorhythmic junctionals which was minlabelled as AF. Vasospastic angina (CMS/HCC) - On Imdur 30 mg but given WCT, will proceed with LHC and also RHC for SOB. - angiographically normal cath 09/2022 likely related to vasospasm - continue aspirin, pravastatin Essential hypertension - stable, continue medication ECHO normal EF Sleep apnea -now on CPAP, compliant with mask S/p Gastric bypass -hx of bypass, had recent open abdominal surgery s/p TAR 12/2022, -has retromuscular seroma with abdominal wound complications Adrian Ibrahim MD Cardiac Electrophysiology [facility] documented in this encounter Plan of Treatment DateTypeDepartmentCare Team (Latest Contact Info)Vaoalywekud17/07/2026 8:30 AM ESTHospital Encounter [facility] [address] [place] [address] Lincoln Ramirez MD [address] [place] [address] Other chest pain; Wide QRS complex present on dctloobtwwfocvhxhcj07/07/2026 8:30 AM EST - 07/11/2025 9:30 AM ESTSurgery [facility] [address] [place] [address] Lincoln Ramirez MD [address] [place] [address] Coronary angiographyNameTypePriorityAssociated DiagnosesOrder ScheduleBasic metabolic panelLabRoutine Other chest pain Wide QRS complex present on electrocardiography Expected: 06/19/2025 (Approximate), Expires: 06/19/2026BC and differentialLab Routine Other chest pain Wide QRS complex present on electrocardiography Expected: 06/19/2025 (Approximate), Expires: 06/19/2026documented as of this encounter Visit Diagnoses Diagnosis Other chest pain- Primary Wide QRS complex present on electrocardiography Other chest pain Wide QRS complex present on electrocardiography Other chest pain Wide QRS complex present on electrocardiography documented in this encounter Care Teams Team MemberRelationshipSpecialtyStart DateEnd Date Serena HollandDO PCP - General01/04/23documented as of this encounter
--- OUTSIDE RECORDS SUMMARY | 2025-06-19 11:15 | XMS_ITS | Encounter Summary ---
Author Organization [facility] Address [address] [place] [address] Care Team Providers Care Tobacco Roller Name Role Phone Holland Lyons MD Primary Care Provider + [phone] Reason for Referral * Consultation (Routine) - AuthorizedSpecialtyDiagnoses / ProceduresReferred By ContactReferred To ContactPain Medicine Diagnoses Acute pain of left shoulder Procedures AL OFFICE/OUTPATIENT [facility]3] 60 MINUTES Jr. Leonard Ac DO [address] [facility] [address] [place] [address] Phone: tel: fax: Lb Domingo MD [address] [place] [address] Phone: tel: fax: Referral IDStatusReasonStart DateExpiration DateVisits RequestedVisits [id number] Consult and Treat / Scheduling Instructions REFERRAL TO DR DOMINGO FOR LT SHOULDER EVAL AND TX; PLEASE CALL PT TO SCHEDULE Reason for Visit * ReasonCommentsPain Encounter Details DateTypeDepartmentCare Team (Latest Contact Info)Qitbszblxni73/16/2025 11:15 AM ESTOffice [facility] [address] [place] [phone] Jr. Leonard Ac DO [address] [facility] [address] [place] [address] S/P arthroscopy of left shoulder (Primary Dx); Acute pain of left shoulder Social History Tobacco UseTypesPacks/DayYears UsedDateSmoking Tobacco: FormerCigarettesAlcohol UseStandard Drinks/WeekCommentsYes0 (1 standard drink = 0.6 oz pure alcohol) CommentsUnknownSex and Gender InformationValueDate RecordedSex Assigned at HviweUlygcz23/17/2023 7:51 PM EDTLegal KndOwlffc23/15/2023 6:50 PM EDTGender HwuguivrUrftfe36/17/2023 7:51 PM EDTSexual WyqxfydfvumFhxclxt18/17/2023 7:51 PM EDTdocumented as of this encounter Progress Notes * Jr. Leonard Ac, DO - 06/19/2025 11:15 AM EST Images from the original note were not included. HISTORY OF PRESENT ILLNESS: EST PT Lori Daily is an 59 y.o. @ female. (EST PT) RECHECK (L) SHOULDER S/P SCOPE 01/08/25 (5~MO) @MAG- S/P CORTISONE SA INJ 05/08/25; DENIES RELIEF- CONTINUES PT [facility]; NOTES INCREASE ROM NO IMAGING POST-OP SA CORTISONE 05/08/25 MDP 03/22/25 PT [facility] LIDODERM PATCH; DENIES RELIEF PT STATES ROM HAS IMPROVED BUT CONTINUES TO HAVE A LOT OF PAIN- PAIN IS CONSTANT- DIFFICULTY GETTING COMFORTABLE HS- SHARP/STABBING PAIN WITH CERTAIN MOVEMENTS- +CATCHING-TRIED TYLENOL; DENIES RELIEFAND CAUSES GI UPSET ALLERGIES: Allergies[1] HOME MEDICATIONS: Current Outpatient Medications Medication Instructions apixaban (ELIQUIS) 5 mg, 2 times daily famotidine (Pepcid) 20 MG tablet Take by mouth furosemide (LASIX) 40 mg, 2 times daily levothyroxine (SYNTHROID, LEVOXYL) 112 mcg, Every morning metoprolol succinate XL (Toprol-XL) 50 MG 24 hr tablet Take by mouth Do not crush or chew. potassium chloride CR (Klor-Con M10) 10 MEQ ER tablet 10 mEq, Oral, Daily, Do not crush or chew. pravastatin (Pravachol) 20 MG tablet Every 24 hours PHYSICAL EXAM: Shoulder Musculoskeletal Exam Inspection Left Left shoulder inspection is normal. Ecchymosis: none Peripheral edema: none Atrophy: mild Atrophy comment: deltoid Masses: none Prior incision: arthroscopic portals Incision: well-healed Palpation Left Crepitus: no crepitus Increased warmth: none Tenderness: present Anterior shoulder: severe Posterior shoulder: severe AC joint: moderate Lateral arm: mild Range of Motion Right Right shoulder active abduction: + pain passing 90 degrees. Left Left shoulder range of motion is normal. Active ROM: pain. Passive ROM: pain. Active forward elevation: 150. Passive forward elevation: 180. Shoulder active abduction: 130. Passive abduction: 180. Active external rotation at side: 80. Passive external rotation at side: 80. Internal rotation: L5. Strength Left External rotation: 5/5. Internal rotation: 5/5. Abduction: 5/5. Biceps: 5/5. Triceps: 5/5. Neurovascular Left Radial pulse: normal and 2+ Capillary refill: <3 sec Axillary nerve sensory distribution: normal Scapula Left Left shoulder scapula is normal. Position: normal Winging: none Special Tests Left Rotator Cuff Signs Neer's test: positive Kirkland test: positive Painful arc test: positive Biceps/annette Signs Speed's test: positive General Constitutional: appears stated age Neurological: alert and oriented x3 Vitals: There is no height or weight on file to calculate BMI. Tobacco Use: Medium Risk (06/19/2025) Received from [facility] Patient History Smoking Tobacco Use: Former Smokeless Tobacco Use: Never Passive Exposure: Not on file Alcohol Use: Not At Risk (12/22/2022) Received from [facility] AUDIT-C Q1: How often do you have a drink containing alcohol?: Never Q2: How many drinks containing alcohol do you have on a typical day when you are drinking?: Patientdoes not drink Q3: How often do you have six or more drinks on one occasion?: Never IMAGING: Procedures Orders Placed This Encounter Procedures Ambulatory referral to Pain Medicine Standing Status: Future Expected Date: 06/19/2025 Expiration Date: 12/18/2025 Referral Priority: Routine Referral Type: Consultation Referral Reason: Specialty Services Required Referred to Provider: Lb Domingo MD Requested Specialty: Pain Medicine Number of Visits Requested: 1 ASSESSMENT: ICD-10-CM 1. S/P arthroscopy of left shoulder Z98.890 2. Acute pain of left shoulder M25.512 Ambulatory referral to Pain Medicine PLAN: We have discussed her restrictions, physical exam and response to cortisone injection on lastvisit at length. We will hold physical therapy at this time we will do exercises every other day athome and we have recommended pain management for chronic left shoulder pain. In 6 weeks we will seeher back for follow-up if her symptoms persist or worsen we will x-ray and probably MRI at that time. Questions answered in laymen terms at the bedside. The diagnosis, home exercise plan and any ongoing restrictions/ recommendations reviewed. If unable to be reached in office, I recommend evaluation at nearest Emergency Room if any symptoms worsened or new symptoms develop for requiring urgent evaluation. [1] Allergies Allergen Reactions Cephalexin Hives and Other Skin Peeling ; has received multiple courses of Piperacillin / Tazobactam without noted reaction - inpatient Codeine Anaphylaxis and Shortness of breath Tolerated Hydromorphone 03/2022 Tramadol Other and Hallucinations Abnormal Behavior / Mental Status Change / Nightmares Clarithromycin Iodinated Contrast Media Sulfamethoxazole Rash Trimethoprim Rash documented in this encounter Plan of Treatment DateTypeDepartmentCare Team (Latest Contact Info)Xidwonbmcwi46/10/2026 10:00 AM ESTOffice Visit [facility] [address] [place] [address] Jr. Leonard Ac DO [address] [facility] [address] [place] [address] NameTypePriorityAssociated DiagnosesOrder ScheduleAmbulatory referral to Pain MedicineOutpatient ReferralRoutine Acute pain of left shoulder Expected: 06/19/2025 (Approximate), Expires: 12/18/2025documented as of this encounter Visit Diagnoses Diagnosis S/P arthroscopy of left shoulder- Primary Acute pain of left shoulder documented in this encounter Care Teams Team MemberRelationshipSpecialtyStart DateEnd Date Holland Lyons MD [address] [facility], [place] [address] PCP - GeneralFamily Medicine03/27/25documented as of this encounter
--- OUTSIDE RECORDS SUMMARY | 2025-07-03 13:00 | XMS_ITS | Encounter Summary ---
Author Organization [facility] [employer] [facility] tem Address [id number] [address] [place] [address] Care Team Providers Care Basting Cleaner Name Role Phone SerenaHolland Jojo HARVEY Primary Care Provider + [phone] Reason for Referral * Diagnostic Imaging (Routine) - Pending ReviewSpecialtyDiagnoses / Procedures Referred By ContactReferred To ContactRadiology Diagnoses Cervical disc displacement Procedures MR cervical spine without contrast Dayron Zuniga PA [address], [address] [place] [address] Phone: tel: fax: Referral IDStatusReasonStart DateExpiration DateVisits RequestedVisits [id number] Reason for Visit * ReasonCommentsShoulder Pain Encounter Details DateTypeDepartmentCare Team (Latest Contact Info)Cjgcngfwldx26/30/2025 1:00 PM ESTOffice Visit [facility] [address] [place] [phone] Dayron Zuniga PA [address], [address] [place] [phone] Cervical disc displacement (Primary Dx); Test anxiety Social History Tobacco UseTypesPacks/DayYears UsedDateSmoking Tobacco: FormerSmokeless Tobacco: Never Comments:15 yrs 1/2 PPD 25 yrs since quit Alcohol UseStandard Drinks/WeekCommentsNot Currently0 (1 standard drink = 0.6 oz pure alcohol)Social Connection and Isolation PanelAnswerDate RecordedIn a typical week, how many times do you talk on the phone with family, friends, or neighbors?More than three times a week12/22/2022How often do you get together with friends or relatives?More than three times a week12/22/2022How often do you attend restorationist or bahai services?More than 4 times per year12/22/2022o you belong to any clubs or organizations such as restorationist groups, unions, fraternal or athletic groups, or school groups?Yes12/22/2022How often do you attend meetings of the clubs or organizations you belong to?Never12/22/2022re you , , , , never , or living with a partner? 12/22/2022UDIT-CAnswerDate RecordedQ1: How often do you have a drink containing alcohol?Never12/22/2022Q2: How many drinks containing alcohol do you have on a typical day when you are drinking?Patient does not drink12/22/2022Q3: How often do you have six or more drinks on one occasion?Never12/22/2022Overall Financial Resource Strain (CARDIA)AnswerDate RecordedHow hard is it for you to pay for the very basics like food, housing, medical care, and heating?Not hard at all 12/22/2022HQ-2AnswerDate RecordedTotal Viofp445[facility] [place] of Occupational Health - Occupational Stress QuestionnaireAnswerDate RecordedDo you feel stress - tense, restless, nervous, or anxious, or unable to sleep at night because yourmind is troubled all the time - these days?Not at all12/22/2022 Exercise Vital SignAnswerDate RecordedOn average, how many days per week do you engage in moderate to strenuous exercise (like a brisk walk)?4 days12/22/2022On average, how many minutes do you engage in exercise at this level?50 min 12/22/2022RAPARE - TransportationAnswerDate RecordedIn the past 12 months, has lack of transportation kept you from medical appointments or from getting medications?No12/22/2022In the past 12 months, has lack of transportation kept you from meetings, work, or from getting things needed for daily living?No 12/22/2022Housing InstabilityAnswerDate RecordedAre you worried or concerned that in the next two months you may not have stable housing that you own, rent or stay in as a part of a household?No12/22/2022hildcareAnswerDate RecordedDo problems getting child's nurse make it difficult for you to work or study?No 12/22/2022EmploymentAnswerDate RecordedDo you need help finding a local career center and/or a training program?No12/22/2022Hunger ScreeningAnswerDate Recorded Within the past 12 months we worried whether our food would run out before we got money to buy more.Never True07/03/2025Within the past 12 months the food we bought just didn't last and we didn't have money to get more.Never True 07/03/2025Purpose - LifeAnswerDate RecordedI have a purpose and direction in my life.Strongly Agree12/22/2022CommentsNoSex and Gender InformationValue Date RecordedSex Assigned at BirthNot on fileLegal UgbTvrbeg59/06/2015 11:46 AM EDTGender IdentityNot on fileSexual OrientationNot on filedocumented as of this encounter Last Filed Vital Signs Vital SignReadingTime TakenCommentsBlood Lzcwbtzi466/8907/03/2025 1:22 PM EST Accjx837407/03/2025 1:22 PM ESTTemperature--Respiratory Lwju4651 1:22 PM ESTOxygen Ugfcnuwvpk77%07/03/2025 1:22 PM ESTInhaled Oxygen Concentration-- Qpdero73.4 kg (142 lb)07/03/2025 1:22 PM TPKBtpumi689 cm (5' 3 )07/03/2025 1:22 PM ESTBody Mass Index25.151 1:22 PM ESTdocumented in this encounter Functional Status * BPAnswerDate of OikepirpojDgltsw445/8907/03/2025 1:22 PM Linh Knight RN * PulseAnswerDate of ZimwdvtdltRdbtyx3038/30/2025 1:22 PM Lnih Knight RN * RespAnswerDate of UbvopnoqiaArcqrx5955/30/2025 1:22 PM Linh Knight RN * XaR2VhukdjUltf of IdrtppvfszTqpgcm7418/30/2025 1:22 PM Linh Knight RN * HeightAnswerDate of SfuyzaagizQaxafh6292/30/2025 1:22 PM Linh Knight RN * WeightAnswerDate of LhcytulgrgVkxzkn318780/30/2025 1:22 PM Linh Knight RN * Food InsecurityQuestionAnswerDate of AssessmentAuthorWithin the past 12 months the food we bought just didn't last and we didn't have money to get more.Never True07/03/2025 1:16 PM Linh Knight RNWithin the past 12 months we worried whether our food would run out before we got money to buy more.Never True07/03/2025 1:16 PM Linh Knight RN * BEE (kcal)AnswerDate of DpejtbpqmzVpqisc099019/30/2025 1:22 PM Linh Knight RN * BSA (Calculated - sq m)AnswerDate of AssessmentAuthor1.6907/03/2025 1:22 PM Linh Knight RN * BMI (Calculated)AnswerDate of TirbycjstjDncxtd06. 1:22 PM Linh Nogueira RN * Abuse Indicator ScreeningQuestionAnswerDate of AssessmentAuthorSafe in HomeYes 07/03/2025 1:16 PM Linh Knight RNDo you feel safe in your relationship(s)?Yes07/03/2025 1:16 PM Linh Knight RNAre you in immediate danger?No07/03/2025 1:16 PM Linh Knight RN * Weight in (lb) to have BMI = 25AnswerDate of XtfwsxweuxIwjeec485.81 1:22 PM Linh Knight RN * [place] Suicide BehaviorQuestionAnswerDate of AssessmentAuthor6. Have you ever done anything, started to do anything, or prepared to do anything to end your life?No07/03/2025 1:58 PM Jaquelin Portillo RN * Suicidal Ideation (Last Month)QuestionAnswerDate of AssessmentAuthor1. In the last month have you wished you were or wished you could go to sleep and not wake up?No07/03/2025 1:58 PM Jaquelin Portillo RN2. In the last month have you actually had any thoughts of killing yourself?No07/03/2025 1:58 PM Jaquelin Silver RNAble to assess?Yes07/03/2025 1:58 PM Jaquelin Portillo RN * Vitals TimerQuestionAnswerDate of AssessmentAuthorRestwhite lake Vitals TimerYes 07/03/2025 1:22 PM Linh Knight RN * [place] Suicide Risk LevelAnswerDate of AssessmentAuthorNot at Suicide Risk 07/03/2025 1:58 PM Jaquelin Portillo RN * BPAnswerDate of ZxthxwfzraJhgogz642/8907/03/2025 1:22 PM Linh Knight RN * PulseAnswerDate of XdqpnjdpjjWwcfzf4908/30/2025 1:22 PM Linh Knight RN * RespAnswerDate of OaoycctpqlYihrnm3990/30/2025 1:22 PM Linh Knight RN * LlW1MsniwrHcsq of MmsxnbkjtnDqtmwv6065/30/2025 1:22 PM Linh Knight RN * HeightAnswerDate of RmwxhclwvlSksvuv4685/30/2025 1:22 PM Linh Knight RN * WeightAnswerDate of WyrcaqklihHdmmjf888772/30/2025 1:22 PM Linh Knight RN * BEE (kcal)AnswerDate of AusidpyqryIvpwop314247/30/2025 1:22 PM Linh Knight RN * BSA (Calculated - sq m)AnswerDate of AssessmentAuthor1.6907/03/2025 1:22 PM Linh Knight RN * BMI (Calculated)AnswerDate of CbjbfoecysHdetdn49.212 1:22 PM Linh Nogueira RN * Weight in (lb) to have BMI = 25AnswerDate of OpggtiyijpIvlmge487.81 1:22 PM Linh Knight RN documented as of this encounter Mental Status * BPAnswerEntry PcjzGxhjuu079/8907/03/2025 1:22 PM Linh Knight RN * PulseAnswerEntry QqovUpdfhc2510/30/2025 1:22 PM Linh Knight RN * RespAnswerEntry BbnqJygoif5078/30/2025 1:22 PM Linh Knight RN * VaQ6DbeuosKtnee EfjdFiydcc4024/30/2025 1:22 PM Linh Knight RN documented in this encounter Plan of Treatment DateTypeDepartmentCare Team (Latest Contact Info)Fftafrrosif80/21/2026 8:00 AM ESTAppointment [facility] [address] [facility] [phone] 08/09/2025 7:45 AM ESTOffice Visit [facility] [address] [place] [phone] Dayron Zuniga, PA [address], [address] [place] [address] 11/08/2025 2:00 PM EDTOffice Visit [facility] [address] [place] [address] NameTypePriorityAssociated DiagnosesOrder ScheduleMR cervical spine without contrastImagingRoutine Cervical disc displacement 1 Occurrences starting 07/03/2025 until 07/03/2026documented as of this encounter Visit Diagnoses Diagnosis Cervical disc displacement- Primary Displacement of cervical intervertebral disc without myelopathy Test anxiety documented in this encounter Additional Health Concerns AssessmentNoted TimePHQ-9 Depression Total Score: 3:38 PM EDT documented as of this encounter Care Teams Team MemberRelationshipSpecialtyStart DateEnd Date Holland Lyons DO [address] [facility], [place] [address] PCP - GeneralFamily Fxwxdgnq18/10/19documented as of this encounter
--- OUTSIDE RECORDS SUMMARY | 2025-07-03 15:28 | XMS_ITS | Clinical Summary ---
Author Organization Spontacts s tem Address [id number] [place] [address] Care Team Providers Care Bearing Ring Assembler Name Role Phone Holland Lyons Primary Care Provider + [phone] Allergies Active AllergyReactionsCriticalityNoted DateCommentsAnesthetics - Amide Type - Select Amino Jlpsyx7508/29/20201801Qsshuvnnymvwaa51/05/2019CephalexinHives,Other (See Comments)High09/18/2016 Other reaction(s): Other: See Comments Peeling of skin Other Reaction(s): Skin pealing Other reaction(s): Other: See Comments Peeling of skin Peeling of skin. Has received multiple courses of piperacillin/tazobactam without noted reaction inpatient. Peeling of skin. Has received multiple courses of piperacillin/tazobactam without noted reaction inpatient. XhsbxweTsromnhypioIamt09/07/9363EtafudcgyuqynhfzUrjbSym96/04/2023Tramadol Hallucinations,Abnormal Behavior,Other (See Comments)Ncokrx0201/12/2023 Hallucinations and nightmares HddlijaafaojEvqjPia95/04/2023 Medications MedicationSigDispense QuantityRefillsLast FilledStart DateEnd DateStatus pravastatin (PRAVACHOL) 20 mg tablet Take 1 tablet (20 mg total) by mouth nightly.10/14/2022ctive famotidine (PEPCID) 20 mg tablet Take 1 tablet (20 mg total) by mouth in the morning.Active furosemide (LASIX) 40 mg tablet Take 1 tablet (40 mg total) by mouth daily.Active apixaban (ELIQUIS) 5 mg tablet Take 1 tablet (5 mg total) by mouth in the morning and 1 tablet (5 mg total) before bedtime.Active isosorbide mononitrate (IMDUR) 30 mg 24 hr tablet Instructions: TAKE 1 TABLET BY MOUTH DAILY DO NOT CRUSH OR CHEW5Active oxyCODONE-acetaminophen (PERCOCET) 5-325 mg per tablet as needed.Active levothyroxine (SYNTHROID, LEVOTHROID) 112 MCG tablet Take 1 tablet (112 mcg total) by mouth in the morning.5Active metoprolol succinate XL (TOPROL XL) 25 mg 24 hr tablet Take 1 tablet (25 mg total) by mouth in the morning.Active potassium chloride (K-TAB,KLOR-CON) 10 MEQ CR tablet Take 1 tablet (10 mEq total) by mouth in the morning and 1 tablet (10 mEq total) before bedtime. 90 tablet 5Active diazePAM (VALIUM) 5 mg tablet Indications:Test anxietyTake 1 tablet (5 mg total) by mouth in the morning. Before MRI. 30 tablet 5Active Active Problems ProblemNoted DateDiagnosed DateCoronary valluigld68/16/2025Other chest pain 06/19/2025Wide QRS complex present on zphobdgxixhmvfcewiz14/16/2025Sinus node /27/2025Vasospastic qtybus7908/31/2024Ureteral stone with qxmtjppwdcejrv26/06/2025dhesive capsulitis of left fqlugggj67/30/2024Tear of left rotator cuff03/03/2024losed nondisplaced fracture of anterior process of right ftryhdpzb89/02/2702Axmzlnrncdzzcc53/02/2024NSTEMI (non-ST elevated myocardial infarction)4Abdominal wall fluid reoqkylptro52/30/2023SVT (supraventricular tachycardia)12/17/2022 Overview (10/05/2023): Last Assessment & Plan: Assessment: Has holter monitor on currently, is to come off on 06/28. Follows cardiology, Dr. Donaldson in [place]. Reports lightheadedness, no syncope, CP, SOB. Last Assessment & Plan: Assessment: HR stable 60-70 BPM. Plan: - Continue metop - hold parameters in place Last Assessment & Plan: - 30 Day event monitor - CHADVASC 1, for now we will have her continue her aspirin Gastroesophageal reflux disease without abvyhaqaxeu48/14/2023 Overview (10/05/2023): Last Assessment & Plan: Assessment: Controlled on rx. Advised avoidance of triggers. Following with PCP. Last Assessment & Plan: Plan: - Continue home pepcid History of non-ST elevation myocardial infarction (NSTEMI)12/16/2022 Overview (10/05/2023): Last Assessment & Plan: Assessment: d/t coronary vasospasms, follows cardiology. Denies stents. Last Assessment & Plan: Assessment: LHC 09/17/22 without blockages. Started on aspirin. LVEF 60% Plan: - Discuss with staff when to resume Asa (oozy case) AV nancy re-entry azpsvolwbxl92/26/2023astric leak/astric wkwbncnapmp63/11/202205/10/2022 Overview (11/05/2022): Last Assessment & Plan: Assessment: Underwent lap sleeve gastrectomy in October 2020 complicated by chronic leak managed withdrains and most recently endoscopic ablation and suturing. Now transfer from OSH for perforation. PLAN: - Broad spectrum abx with meropenem, diflucan - Blood cultures x2 pending - Neg x 2 days - general surgery following, rec non-operative management for now Luetscher's vlneeaeh22/10/2022 Overview (11/05/2022): Last Assessment & Plan: Assessment: Presented to ED with lightheadedness, fevers, tachycardia. Received 3L crystalloid in ED PLAN: - Volume replacement in TPN Shortness of ilgfeh1608/29/2020bnormal cardiovascular stress test06/19/2019 Overview (06/19/2019): Added automatically from request for surgery [id number] Essential noxewzrrpalx61/10/6533Xbgxpmgskbr21History of imoahpp13ain in xluulz25rthritis07/04/2017 11/05/2022 Overview (11/05/2022): New onset Joint pain [...] for iritis Rheum consult Postoperative seroma of subcutaneous tissue after non-dermatologic procedure Hypothyroid Overview (11/05/2022): ON levothyroxine 200 mcg Plan: TSH Continue home meds Last Assessment & Plan: Assessment: stable Other plastic surgery for unacceptable cosmetic rnuumjvyac34 HyperlipidemiaObstructive sleep apneaObesityHypertriglyceridemiaEdemaChronic eczema of handTinea pedisVitamin D deficiency Resolved Problems ProblemNoted DateDiagnosed DateResolved DateObesity, Class III, BMI 40-49.9 (morbid obesity)/Mild protein-calorie fyvuiqviqsrl09/11/2022/04/2024 Overview (11/05/2022): Last Assessment & Plan: Assessment: Malnutrition PLAN: - Nutrition following - Continue TPN COPD (chronic obstructive pulmonary disease)/ Overview (11/05/2022): COPD on anoro-ellipta and albuterol prn Stale, no SOB wheezing Plan: Continue home meds Last Assessment & Plan: Assessment: inhaler as needed. Stable Jennifer's yiotren0108/31/2024 Encounters DateTypeDepartmentCare CsexPnirwunpsje20/30/2025 1:00 PM ESTOffice Visit [facility] [address] [place] [address] Dayron Zuniga, MELVIN Cervical disc displacement (Primary Dx); Test lorpoxm9507/03/20253292Gsraqu38/29/6810Zsaiom29/19/3373Hfkele12/15/2025 2:20 PM EDTOffice Visit [facility] [address] [place] [phone] Griselda Moore, MANAGER PERFORMANCE IMPROVEMENT-INTERNIST MEDICAL DOCTOR MD DARLEEN (acute kidney injury) (Primary Dx)04/18/20252367Qvgqsp32/07/2025Results Follow-Up [facility] - [facility] [address] [place] [phone] Holland Lyons, Thyroid profile includes TSH FT41Travelfrom Last 3 Months Immunizations ImmunizationAdministration DatesNext DueCovid-19, Mrna, Lnp-s, Bivalent, Pf, 30mcg/0.3 ml04/20/2022Influenza (IM) Preservative Free04/18/2017,06/01/2015 Influenza, Im Trivalent Vgadrmxbzwge50/11/2016,06/01/2015Influenza, Injectable, Mdck, Preservative Free, Quad05/01/2018Influenza, Injectable, Quadrivalent 05/04/2018Influenza, Injectable, quadrivalent (PF)04/14/2023,04/13/2022, 06/03/2021,04/19/2020,04/23/2019Influenza, Othbvmfeiib21/18/2017,04/04/2016 Pneumococcal Conjugate 13-Ucqnbh8805/22/2016Pneumococcal Rbbllndfnvvdbk43/30/2021 Pneumococcal, Uvdwxlmbkwz30/18/3392ACNX-JGD-0 (COVID-19) Vaccine, Unspecified 04/20/2022Tdap108/17/2021Zoster Live06/16/2022,04/13/2022Zoster Vaccine Duysxjqfrye27/13/2022,04/13/2022 Family History Medical HistoryRelationNameCommentsNo Known ProblemsFatherNo Known Problems MotherBreast cancerNeg HxRelationNameStatusCommentsFatherMother Social History Tobacco UseTypesPacks/DayYears UsedDateSmoking Tobacco: FormerSmokeless Tobacco: Never Tobacco Cessation:Counseling Given: Not Answered [...] times a week12/22/2022How often do you attend uatsdin or episcopalian services?More than 4 times per year3Do you belong to any clubs or organizations such as uatsdin groups, unions, fraternal or athletic groups, or [...] and heating?Not hard at all 12/22/2022HQ-2AnswerDate RecordedTotal Wfrui790Finfillmore [facility] [place] of Occupational Health - Occupational Stress QuestionnaireAnswerDate [...] part of a household?No12/22/2022hildcareAnswerDate RecordedDo problems getting children's ministry director make it difficult for you to work [...] Date RecordedSex Assigned at BirthNot on fileLegal XhxWqpujc08/06/2015 11:46 AM EDTGender IdentityNot on fileSexual OrientationNot on file Last Filed Vital Signs Vital SignReadingTime TakenCommentsBlood Wqhqkpzq512/8907/03/2025 1:22 PM EST Opcjf370107/03/2025 1:22 PM MGKKmiwzzebrtu29.4 ??C (97.6 ??F)01/11/2025 3:40 PM EDTRespiratory Qkuw6805 1:22 PM ESTOxygen Pjjdlosnyl69%07/03/2025 1:22 PM ESTInhaled Oxygen Concentration--Qxnlug74.4 kg (142 lb)07/03/2025 1:22 PM EST Aiyocj743 cm (5' 3 )07/03/2025 1:22 PM ESTBody Mass Index25.151 1:22 PM EST Plan of Treatment DateTypeDepartmentCare Team (Latest Contact Info)Hfkodcroldw67/21/2026 8:00 AM [facility]App[facility]ment [facility] [address] [place] [address] 08/09/2025 7:45 AM ESTOffice Visit [facility] [address] [place] [address] Dayron Zuniga, MELVIN [address] [place] [address] 11/08/2025 2:00 PM EDTOffice Visit [facility] [address] [place] [address] Health MaintenanceDue DateLast DoneCommentsStatin Use: Doxmbgheblwyme23/23/1967 Adult BMI Follow Up Plan1984Colon Cancer Screening Annual FOBT06/20/2023 06/20/20225742Fobjcshoc13/08/202405/02/2023Influenza Frqfcfu28/05/2023, 04/13/2022, 06/03/2021, Additional history existsDepression Gdpebqryz17/10/2026 01/11/2025dult BMI Feorszpnd46Tobacco Vvyxftrra67/30/2026 07/03/2025DTaP,Tdap and Td Vaccines (2 - Td or Tdap)OVID-19 ZkkasmpKwajwhfgezba78/17/2022, 04/20/2022, 05/06/2021, Additional history exists Zoster (Shingles) MhsiujjWhbuucllinyu04/13/2022, 06/16/2022, 04/13/2022, Additional history exists Medical Devices ImplantedTypeAreaManufacturerDevice IdentifierShelf Expiration DateModel / Serial / LotIngevity+ Pacing Lead Bi Positive Fix Ra/Rv Implanted:02/07/2024 (Quantity not on file)Implant [id number] / [id number] / Description:1.5 T or 3 T scanner allowed. Normal Operating Mode or First Level [...] Positive Fix Ra/Rv Implanted:02/07/2024 (Quantity not on file)Implant Madelin [id number] / [id number] / Description:1.5 T or 3 T scanner allowed. Normal Operating Mode or First Level [...] Mri Pulse Generator Implanted:02/07/2024 (Quantity not on file)Lucina PattersonL331 / [id number] / Description:1.5 T or 3 T scanner allowed. Normal Operating Mode or First Level [...] MRI scan by pulse oximetry and/or electrocardiography (ECG)Stent Zimmon 7fr 2 Pigtail Curve Purple Polyethylene Biliary Implanted:10/08/2021 (Quantity not on file)StentThree Rivers HospitalExpert Networks Incorporated [id number] / [id number] / Description:Static magnetic field of 3.0 kelsea or less Maximum spatial magnetic gradient of 1,600 gauss/cm or less Maximum MR system reported, gddqy-eufz-qvsctopt specific absorption rate (DHRUV) of 2.0 W/kg normal operating mode for 15 minutes of scanning or less (i.e., per scanning sequence) Static Magnetic Field The static magnetic field for comparison to the above limits is the static magnetic field that is pertinent to the patient (i.e., outside of scanner covering, accessible to a patient or individual). Procedures Procedure NamePriorityDate/TimeAssociated DiagnosisCommentsCREATININE, SERUM Fmeuidi8504/09/2025 9:41 AM EDT DARLEEN (acute kidney injury) QCGGdnmrad80/06/2025 9:41 AM EDT DARLEEN (acute kidney injury) ELECTROLYTE VRVFHNqkvequ90/06/2025 9:41 AM EDT DARLEEN (acute kidney injury) MICROALBUMIN / CREATININE URINE PJTOKYmdzdvc07/06/2025 9:41 AM EDT DARLEEN (acute kidney injury) YFMZWLKIXUWgnbukd22/06/2025 9:41 AM EDT DARLEEN (acute kidney injury) PROTEIN CREAT XVLKUKiqddye20/06/2025 9:41 AM EDT DARLEEN (acute kidney injury) CAXIMRVAAHIxrddqp46/06/2025 9:41 AM EDT DARLEEN (acute kidney injury) GQSRPJAMVQquqlpg11/06/2025 9:41 AM EDT DARLEEN (acute kidney injury) CBC (NO DIFF)Hflezbn1204/09/2025 9:41 AM EDT DARLEEN (acute kidney injury) ZJNAABZAxmvojx52/06/2025 9:41 AM EDT DARLEEN (acute kidney injury) THYROID PROFILE INCLUDES TSH GM4Pfyakgq90/06/2025 9:41 AM EDT Hypothyroidism, unspecified type MAMM SCREENING BILATERAL W DCFPdrqkxb71/08/2023 11:58 AM EDT Screening mammogram for breast cancer from Last 3 Months or Most Recently Relevant to Health Maintenance Results * Protein creat ratio (04/09/2025 9:41 AM EDT)ComponentValueRef RangeTest Method Analysis TimePerformed AtPathologist SignatureURINE PROTEIN, RANDOM (MG/L)90 <120 mg/L1 2:15 PM [facility] LABORATORYURINE CREATININE,NXQ288.72mg/dL04/09/2025 2:15 PM [facility] LABORATORYU/PRO/GREETER RATIO CALC0.08<=0. 2:15 PM [facility] LABORATORYSpecimen (Source)Anatomical Location / LateralityCollection Method / VolumeCollection TimeReceived TimeUrineUrine specimen collection, clean catch / UnknownCollection / Rcimsgv6004/09/2025 9:41 AM EDT1 9:41 AM EDT Narrative [facility] - 04/09/2025 2:15 PM EDT Nephrotic Syndrome is associated with ratios >3.5 Authorizing ProviderResult TypeResult StatusMohamed Mika JHA ORDERABLES Final ResultPerforming OrganizationAddressCity/State/ZIP CodePhone Number [facility] [address] [place] [address], [place] [phone] * Thyroid profile includes TSH FT4 (04/09/2025 9:41 AM EDT)ComponentValueRef RangeTest MethodAnalysis TimePerformed AtPathologist SignatureFREE T40.860.61 - 1.60 ng/dL04/09/2025 2:06 PM [facility] LABORATORYTSH1.01 0.49 - 4.67 uIU/mL04/09/2025 2:06 PM [facility] Specimen (Source)Anatomical Location / LateralityCollection Method / Volume Collection TimeReceived TimeBloodVenous blood / UnknownVenipuncture / Unknown 04/09/2025 9:41 AM EDT1 9:41 AM EDT Narrative Authorizing ProviderResult TypeResult StatusDennis G Furlong DOLAB BLOOD ORDERABLESFinal ResultPerforming OrganizationAddressCity/State/ZIP CodePhone Number [facility] [address] [place] [address], * Microalbumin - Albumin: Creatinine Urine Ratio (04/09/2025 9:41 AM EDT) ComponentValueRef RangeTest MethodAnalysis TimePerformed AtPathologist SignatureURINE CREATININE,WPI964.72mg/dL04/09/2025 2:15 PM [facility] LABORATORYMALB/CREAT RATIO8.10.0 - 30.0 mg/g1 2:15 PM EDT [facility] LABORATORYMICROALBUMIN, URINE0.90.0 - 1.9 mg/dL 04/09/2025 2:15 PM [facility] LABORATORYSpecimen (Source) Anatomical Location / LateralityCollection Method / VolumeCollection Time Received TimeUrineUrine specimen collection, clean catch / UnknownCollection / Adwkjkb4504/09/2025 9:41 AM EDT1 9:41 AM EDT Narrative Authorizing ProviderResult TypeResult StatusMohamed Mika JHA ORDERABLES Final ResultPerforming OrganizationAddressCity/State/ZIP CodePhone Number [facility] [address] [place] [address], * (ABNORMAL) Urinalysis (04/09/2025 9:41 AM EDT)ComponentValueRef RangeTest MethodAnalysis TimePerformed AtPathologist SignatureCOLORYellowYellow 04/09/2025 1:34 PM [facility]ORATORYTURBIDITYClearClear 04/09/2025 1:34 PM [facility] LABORATORYSPECIFIC GRAVITY1.023 1.003 - 1.8215004/09/2025 1:34 PM [facility] LABORATORYNITRITE YhhsxecgQrdnpqsp83/06/2025 1:34 PM [facility] PH,URINE5.55.0 - 8.510 1:34 PM [facility] LEUKOCYTE ESTERASESmall(A)Zuemgypq72/06/2025 1:34 PM [facility] HTIOPYLHWZRYIOCTGItojkvoaCklvmyqd55/06/2025 1:34 PM [facility] LABORATORYKETONES (URINE)TtphkxsdZtpwfkqq15/06/2025 1:34 PM [facility] LABORATORYUROBILINOGEN<1.1 eu/dL<1.1 eu/dL04/09/2025 1:34 PM [facility] LABORATORYBILIRUBIN (URINE)NegativeNegative 04/09/2025 1:34 PM [facility] LABORATORYBLOOD/HGBNegative Tngbrxvq33/06/2025 1:34 PM [facility] LABORATORYMUCOUSPresent (A)None04/09/2025 1:34 PM [facility] LABORATORYR.B.CELLS - 1:34 PM [facility] LABORATORYSQUAMOUS EPITHELIUM2 0 - 1:34 PM [facility] LABORATORYW.B.CELLS14(H)0 - 1:34 PM [facility] LABORATORYGLUCOSE (URINE) SjopwxbfAvodojeq65/06/2025 1:34 PM [facility] Specimen (Source)Anatomical Location / LateralityCollection Method / Volume Collection TimeReceived TimeUrineUrine / UnknownCollection / Ynsfnhc0404/09/2025 9:41 AM EDT1 9:41 AM EDT Narrative Authorizing ProviderResult TypeResult StatusMohamed Mika JHA ORDERABLES Final ResultPerforming OrganizationAddressCity/State/ZIP CodePhone Number [facility] [address] [place] [address], * CBC without diff (04/09/2025 9:41 AM EDT)ComponentValueRef RangeTest Method Analysis TimePerformed AtPathologist SignatureWBC4.74 - 11 x10E9/L1 1:24 PM [facility] LABORATORYRBC Count4.203.8 - 5.2 X10E12/L 04/09/2025 1:24 PM [facility] ADKHJURPOENcxleeepym11.311.7 - 15.5 g/dL04/09/2025 1:24 PM [facility] LABORATORYHematocrit 36.435 - 47 %04/09/2025 1:24 PM [facility] ULOJJTBWSFNJA3101 - 100 fL04/09/2025 1:24 PM [facility] OTXTQDGRIRNQP39.227 - 34 pg04/09/2025 1:24 PM [facility] ZFDIRMWXZQHUAW56.732 - 36 g/dL04/09/2025 1:24 PM [facility] IKDZOGTYUHXDO95.711.5 - 15 %04/09/2025 1:24 PM [facility] LABORATORYPlatelet Okfha375727 - 450 X10E9/L1 1:24 PM [facility] LABORATORYMPV8.77 - 12 fL04/09/2025 1:24 PM [facility] LABORATORYSpecimen (Source)Anatomical Location / LateralityCollection Method / VolumeCollection TimeReceived TimeBloodVenous blood / UnknownVenipuncture / Ortuewm3804/09/2025 9:41 AM EDT1 9:41 AM EDT Narrative Authorizing ProviderResult TypeResult StatusMohamed Mika RIOS BLOOD ORDERABLESFinal ResultPerforming OrganizationAddressCity/State/ZIP CodePhone Number [facility] [address] [place] [address], * BUN (04/09/2025 9:41 AM EDT)ComponentValueRef RangeTest MethodAnalysis Time Performed AtPathologist SignatureBLOOD UREA GLVZMIHE199 - 23 mg/dL04/09/2025 1:58 PM [facility] LABORATORYSpecimen (Source)Anatomical Location / LateralityCollection Method / VolumeCollection TimeReceived Time BloodVenous blood / UnknownVenipuncture / Aqecdkv8804/09/2025 9:41 AM EDT 04/09/2025 9:41 AM EDT Narrative Authorizing ProviderResult TypeResult StatusMohamed A JessicaSpaceport.ioLAB BLOOD ORDERABLESFinal ResultPerforming OrganizationAddressCity/State/ZIP CodePhone Number [facility] [address] [place] [address], * Phosphorus (04/09/2025 9:41 AM EDT)ComponentValueRef RangeTest MethodAnalysis TimePerformed AtPathologist SignaturePHOSPHORUS3.82.4 - 4.9 mg/dL04/09/2025 1:58 PM [facility] LABORATORYSpecimen (Source)Anatomical Location / LateralityCollection Method / VolumeCollection TimeReceived Time BloodVenous blood / UnknownVenipuncture / Dbtyedp6404/09/2025 9:41 AM EDT 04/09/2025 9:41 AM EDT Narrative Authorizing ProviderResult TypeResult StatusMohamed A JessicaOrpheus Media Research BLOOD ORDERABLESFinal ResultPerforming OrganizationAddressCity/State/ZIP CodePhone Number [address] [place] [address], * Magnesium (04/09/2025 9:41 AM EDT)ComponentValueRef RangeTest MethodAnalysis TimePerformed AtPathologist SignatureMAGNESIUM2.01.8 - 2.6 mg/dL04/09/2025 1:58 PM [facility] LABORATORYSpecimen (Source)Anatomical Location / LateralityCollection Method / VolumeCollection TimeReceived Time BloodVenous blood / UnknownVenipuncture / Qsuqzxj7404/09/2025 9:41 AM EDT 04/09/2025 9:41 AM EDT Narrative Authorizing ProviderResult TypeResult StatusMohamed A JessicaSpaceport.ioLAB BLOOD ORDERABLESFinal ResultPerforming OrganizationAddressCity/State/ZIP CodePhone Number [facility] [address] [place] [address] [address] [place] [address], * Creatinine includes GFR, serum (04/09/2025 9:41 AM EDT)ComponentValueRef Range Test MethodAnalysis TimePerformed AtPathologist SignatureCREATININE0.870.40 - 1.00 mg/dL04/09/2025 1:58 PM [facility] LABORATORYComment: METHOD TRACEABLE TO IDMS STANDARDEGFR Non-Race Dtypmbxfa86>=60 ml/min/1.73sq.m 04/09/2025 1:58 PM [facility] LABORATORYComment: Reported eGFR is based on the CKD-EPI 2020 equation that does not use a race coefficient. Specimen (Source)Anatomical Location / LateralityCollection Method / Volume Collection TimeReceived TimeBloodVenous blood / UnknownVenipuncture / Unknown 04/09/2025 9:41 AM EDT1 9:41 AM EDT Narrative Authorizing ProviderResult TypeResult StatusMohamed Mika HandMinder BLOOD ORDERABLESFinal ResultPerforming OrganizationAddressCity/State/ZIP CodePhone Number [facility] [address] [place] [address] [address] [place] [address], * Calcium (04/09/2025 9:41 AM EDT)ComponentValueRef RangeTest MethodAnalysis TimePerformed AtPathologist SignatureCALCIUM9.28.5 - 10.5 mg/dL04/09/2025 1:58 PM [facility] LABORATORYSpecimen (Source)Anatomical Location / LateralityCollection Method / VolumeCollection TimeReceived TimeBloodVenous blood / UnknownVenipuncture / Gelzxhm3804/09/2025 9:41 AM EDT1 9:41 AM EDT Narrative Authorizing ProviderResult TypeResult StatusMohamed Mika HandMinder BLOOD ORDERABLESFinal ResultPerforming OrganizationAddressCity/State/ZIP CodePhone Number [facility] [address] [place] [address], * (ABNORMAL) Electrolyte panel (04/09/2025 9:41 AM EDT)ComponentValueRef Range Test MethodAnalysis TimePerformed AtPathologist LdninowdaOZKDZX717311 - 146 mmol/L1 1:58 PM [facility] LABORATORYPOTASSIUM3.3(L) 3.5 - 5.0 mmol/L1 1:58 PM [facility] LNBZVONJ35958 - 109 mmol/L1 1:58 PM [facility] LABORATORYCARBON UPQCZRO8984 - 32 mmol/L1 1:58 PM [facility] LABORATORYANION AND673 - 15 mmol/L1 1:58 PM [facility] LABORATORYSpecimen (Source)Anatomical Location / Laterality Collection Method / VolumeCollection TimeReceived TimeBloodVenous blood / UnknownVenipuncture / Eaxzsmb1904/09/2025 9:41 AM EDT1 9:41 AM EDT Narrative Authorizing ProviderResult TypeResult StatusMohamed Mika RIOS BLOOD ORDERABLESFinal ResultPerforming OrganizationAddressCity/State/ZIP CodePhone Number [facility] [address] [place] [address], * Mammography screening bilateral with CAD (11/09/2022 11:58 AM EDT)Anatomical RegionLateralityModalityBreastBilateralMammographySpecimen (Source)Anatomical Location / LateralityCollection Method / VolumeCollection TimeReceived Time 11/10/2022 9:02 AM EDT Narrative 11/10/2022 9:04 AM EDT MAMM SCREENING BILATERAL W CAD WITH TOMOSYNTHESIS HISTORY: Screening. Screening mammogram for breast cancer COMPARISON: New Baseline FINDINGS: There are scattered areas of fibroglandular density. ??Negative for malignancy. Computer-aided detection was used in the interpretation of this examination. IMPRESSION: BIRADS 1 - Negative. ??Normal interval follow-up in 12 months. OVERALL ASSESSMENT- [...] 9:04 AM 1 b MAMM 1 YR Authorizing ProviderResult TypeResult Statuscara Winslow MANAGER PERFORMANCE IMPROVEMENT-AUSTEN RIGGS CENTERG MAMMOGRAPHY ORDERABLESFinal Result from Last 3 Months or Most Recently Relevant to Health Maintenance Insurance Care Teams Team MemberRelationshipSpecialtyStart DateEnd Date Holland Lyons DO [address] [place] [address] [facility] Eaqwxceo84/10/19
--- OUTSIDE RECORDS SUMMARY | 2025-07-03 15:28 | XMS_ITS | Encounter Summary ---
Author Organization [facility] Address [address] [place] [address] Care Team Providers Care Motor Adjuster Name Role Phone Holland Lyons MD Primary Care Provider [phone] Encounter Details DateTypeDepartmentCare Team (Latest Contact Info)Wymykxvpssm38/16/2025Travel Social History Tobacco UseTypesPacks/DayYears UsedDateSmoking Tobacco: FormerCigarettesAlcohol UseStandard Drinks/WeekCommentsYes0 (1 standard drink = 0.6 oz pure alcohol) CommentsUnknownSex and Gender InformationValueDate RecordedSex Assigned at EvmcmMuvnve72/17/2023 7:51 PM EDTLegal FcnPkhqfv48/15/2023 6:50 PM EDTGender UmwtagypGxlpaf56/17/2023 7:51 PM EDTSexual TqbvkcemqgbBjbibwb22/17/2023 7:51 PM EDTdocumented as of this encounter Plan of Treatment DateTypeDepartmentCare Team (Latest Contact Info)Ttciakixpgh51/10/2026 10:00 AM ESTOffice Visit [facility] [address] [place] [address] Jr. Leonard Ac, DO [address] [place] [address] documented as of this encounter Visit Diagnoses Not on filedocumented in this encounter Care Teams Team MemberRelationshipSpecialtyStart DateEnd Date Holland Lyons MD [address], [place] [address] PCP - GeneralFamily Medicine03/27/25documented as of this encounter
--- OUTSIDE RECORDS SUMMARY | 2025-07-03 15:28 | XMS_ITS | Clinical Summary ---
Author Organization [facility] Address [address] [place] [address] Care Team Providers Care Scrubber Operator Name Role Phone Holland Lyons MD Primary Care Provider + [phone] Allergies Active AllergyReactionsCriticalityNoted DateCommentsCephalexinHives,OtherHigh 09/18/2016 Skin Peeling ; has received multiple courses of Piperacillin / Tazobactam without noted reaction - inpatient Hpvlrprfhdryxk29/05/2019CodeineAnaphylaxis,Shortness of rufqvaBahg59/07/2013 Tolerated Hydromorphone 03/2022 Iodinated Contrast Media08/29/20204471ClvwdcfqulqhqjecBiezCpk53/04/2023TramadolOther ,FepqlxyvlymrvuCzfuzq43/11/2023 Abnormal Behavior / Mental Status Change / Nightmares MvzbtirslhwrRpcfMvq60/04/2023 Medications MedicationSigDispense QuantityRefillsLast FilledStart DateEnd DateStatus pravastatin (Pravachol) 20 MG tablet 1 (one) time each day at the same timeActive levothyroxine (Synthroid, Levoxyl) 100 MCG tablet Take 112 mcg by mouth in the morning.Active metoprolol succinate XL (Toprol-XL) 50 MG 24 hr tablet Take by mouth Do not crush or chew.Active furosemide (Lasix) 40 MG tablet Take 40 mg by mouth in the morning and 40 mg before bedtime.Active apixaban (Eliquis) 5 MG tablet Take 5 mg by mouth in the morning and 5 mg before bedtime.Active famotidine (Pepcid) 20 MG tablet Take by mouthActive potassium chloride CR (Klor-Con M10) 10 MEQ ER tablet Take 10 mEq by mouth Daily Do not crush or chew.Active Active Problems ProblemNoted DateDiagnosed DateAcute pain of left olcgqhdo47/19/2024alcific tendonitis of left ctebotgp16/19/2024 Encounters DateTypeDepartmentCare YlggJsxvzwzlpiv99/16/2025 11:15 AM ESTOffice Visit [facility] [address] [place] [address] Jr. Leonard Ac, DO S/P arthroscopy of left shoulder (Primary Dx); Acute pain of left kjkyggcs63/16/2025amb flowsheet [facility] [address] [place] [address] Jr. Leonard Ac, DO 06/19/20256942Uhjhcy19/15/2025 8:30 AM ESTTreatment [facility] [address] [facility] [address] [place] [address] Elvira Martin, PT Internal derangement of left shoulder (Primary Dx); S/P arthroscopy of left urozctop16/15/2025amb flowsheet [facility] [address] [facility] [address] [place] [address] Elvira Martin, PT 06/18/20256069Hjljhq10/11/2025 7:30 AM ESTTreatment [facility] [address] [facility] [address] [place] [address] Desmond Le, SOCIAL SCIENTIST Internal derangement of left shoulder (Primary Dx); S/P arthroscopy of left yvovltak64/11/2025amb flowsheet [facility] [address] [place] [address] [place] [address] Desmond Le, SOCIAL SCIENTIST 06/14/20259694Tslkpg43/08/2025 8:00 AM ESTTreatment [facility] [address] [facility] [address] [place] [address] Desmond Le, SOCIAL SCIENTIST Internal derangement of left shoulder (Primary Dx); S/P arthroscopy of left svqzrzar07/08/2025Bamboo flowsheet [facility] [address] [place] [address] [place] [address] Desmond Le, SOCIAL SCIENTIST 06/11/20256637Euewah95/04/2025 7:00 AM ESTTreatment [facility] [address] [address] [place] [address] Isis Dave, SOCIAL SCIENTIST Internal derangement of left shoulder (Primary Dx); S/P arthroscopy of left gbsewnpg89/04/2025 flowsheet [facility] [address] [address] [place] [address] Corina Daveissa, SOCIAL SCIENTIST 06/07/20257100Itdfeu16/01/2025 9:00 AM ESTTreatment [facility] [address] [place] [address] [place] [address] Elvira Martin, PT Internal derangement of left shoulder (Primary Dx); S/P arthroscopy of left lgkyoorw37/01/2025 flowsheet [facility] [address] [place] [address] [place] [address] Elvira Martin, PT 06/04/20250705Rpakec25/26/2025 7:00 AM ESTTreatment [facility] [address] [place] [address] [place] [address] Desmond Le, SOCIAL SCIENTIST Internal derangement of left shoulder (Primary Dx); S/P arthroscopy of left puyeolpg96/26/2025 flowsheet [facility] [address] [address] [place] [address] Desmond Le, SOCIAL SCIENTIST 05/30/20250853Juibjh55/24/2025 8:30 AM ESTTreatment [facility] [address] [place] [address] [place] [address] Desmond Le, SOCIAL SCIENTIST Internal derangement of left shoulder (Primary Dx); S/P arthroscopy of left gpyepklx47/24/2025Bamboo flowsheet [facility] [address] [address] [place] [address] Desmond Le, SOCIAL SCIENTIST 05/28/20251105Bwdtfo73/20/2025 7:00 AM ESTTreatment [facility] [address] [place] [address] [place] [address] Tenzin, Isis, SOCIAL SCIENTIST Internal derangement of left shoulder (Primary Dx); S/P arthroscopy of left shoulder; Generalized abdominal pain05/24/2025amboo flowsheet [facility] [address] [address] [place] [address] Ranjitbley, Isis, SOCIAL SCIENTIST 05/24/20258356Sajwha36/17/2025 8:00 AM ESTTreatment [facility] [address] [address] [place] [address] Desmond Le, SOCIAL SCIENTIST Internal derangement of left shoulder (Primary Dx); S/P arthroscopy of left fogzfehh83/17/2025amboo flowsheet [facility] [address] [address] [place] [address] Desmond Le, SOCIAL SCIENTIST 05/21/20259953Djhwel64/13/2025 7:30 AM ESTTreatment [facility] [address] [address] [place] [address] Desmond Le, SOCIAL SCIENTIST Internal derangement of left shoulder (Primary Dx); S/P arthroscopy of left xhhrekfh63/13/2025amboo flowsheet [facility] [address] [address] [place] [address] Desmond Le, SOCIAL SCIENTIST 05/17/20257956Cilzhb79/11/2025 2:30 PM ESTTreatment [facility] [address] [address] [place] [address] Desmond Le, SOCIAL SCIENTIST Internal derangement of left shoulder (Primary Dx); S/P arthroscopy of left kzfyjzka22/11/2025amboo flowsheet [facility] [address] [facility] [address] [place] [address] Desmond Le, SOCIAL SCIENTIST 05/15/20257483Fxfoaa73/05/2025 7:00 AM ESTTreatment [facility] [address] [facility] [address] [place] [address] Desmond Le, SOCIAL SCIENTIST Internal derangement of left shoulder (Primary Dx); S/P arthroscopy of left /05/1581Ultdhp99/04/2025 10:15 AM ESTOffice Visit [facility] [address] [place] [address] Jr. Leonard Ac, DO Acute pain of left shoulder (Primary Dx); S/P arthroscopy of left oaqsjwoz94/04/2025 flowsheet [facility] [address] [place] [address] Jr. Leonard Ac, 05/08/20250445Dvacnu10/31/2025 7:30 AM EDTTreatment [facility] [address] [facility] [address] [place] [address] Kelbley, Isis, SOCIAL SCIENTIST Internal derangement of left shoulder (Primary Dx); S/P arthroscopy of left yojrmosk57/31/2025 flowsheet [facility] [address] [facility] [address] [place] [address] Kelbley, Isis, SOCIAL SCIENTIST 05/04/20256735Jpfeax64/24/2025 7:00 AM EDTTreatment [facility] [address] [facility] [address] [place] [address] Kelbley, Isis, SOCIAL SCIENTIST Internal derangement of left shoulder (Primary Dx); S/P arthroscopy of left qunsrkfv04/24/2025 flowsheet [facility] [address] [facility] [address] [place] [address] Kelbley, Isis, SOCIAL SCIENTIST 04/27/20251658Rwvxvb32/21/2025 8:30 AM EDTTreatment [facility] [address] [address] [place] [address] Kelbley, Isis, SOCIAL SCIENTIST Internal derangement of left shoulder (Primary Dx); S/P arthroscopy of left ihtzlbug98/21/2025amboo flowsheet [facility] [address] [address] [place] [address] Kelbley, Isis, SOCIAL SCIENTIST 04/24/20258410Rnyuzn72/17/2025 7:30 AM EDTTreatment [facility] [address] [address] [place] [address] Ranjitbley, Isis, SOCIAL SCIENTIST Internal derangement of left shoulder (Primary Dx); S/P arthroscopy of left oyncmbba41/17/2025amboo flowsheet [facility] [address] [facility] [address] [place] [address] Kelbley, Isis, SOCIAL SCIENTIST 04/20/20259232Utmutz65/14/2025 10:30 AM EDTTreatment [facility] [address] [address] [place] [address] Elvira Martin, PT Internal derangement of left shoulder (Primary Dx); S/P arthroscopy of left shoulder; Generalized abdominal pain04/17/2025Plan of Care Documentation [facility] [address] [facility] [address] [place] [address] 04/17/2025amboo flowsheet [facility] [address] [place] [address] [place] [address] Elvira Martin, PT 04/17/20257484Bscxhd48/10/2025 7:00 AM EDTTreatment [facility] [address] [place] [address] [place] [address] Tenzin, Isis, SOCIAL SCIENTIST Internal derangement of left shoulder (Primary Dx); S/P arthroscopy of left iprgjvbv67/10/2025amb flowsheet [facility] [address] [place] [address] [place] [address] KelCorina reeseissa, SOCIAL SCIENTIST 04/13/20258618Lllgjw07/08/2025 9:00 AM EDTOffice Visit [facility] [address] [place] [address] Jr. Leonard Ac, DO Acute pain of left shoulder (Primary Dx); Calcific tendonitis of left mfbwmddi38/08/2025amboo flowsheet [facility] [address] [address] [place] [address] Jr. Leonard Ac, DO 04/11/20251605Qfzwrh22/07/2025 8:30 AM EDTTreatment [facility] [address] [address] [place] [address] Corina Daveissa, SOCIAL SCIENTIST Internal derangement of left shoulder (Primary Dx); S/P arthroscopy of left /07/2025amb flowsheet [facility] [address] [address] [place] [address] KelCorina reeseissa, SOCIAL SCIENTIST 04/10/20258214Pgsfdh87/02/2025 8:30 AM EDTTreatment [facility] [address] [address] [place] [address] Desmond Le, SOCIAL SCIENTIST Internal derangement of left shoulder (Primary Dx); S/P arthroscopy of left czadmkzj47/02/2025amb flowsheet [facility] [address] [address] [place] [address] Kt Leall, SOCIAL SCIENTIST 04/05/20252772Qzxudg67/30/2025 8:30 AM EDTTreatment [facility] [address] [place] [address] Tenzin, Isis, SOCIAL SCIENTIST Internal derangement of left shoulder (Primary Dx); S/P arthroscopy of left vsowhrta71/30/2025Travelfrom Last 3 Months Family History Medical HistoryRelationNameCommentsDiabetesFatherHeart diseaseFatherHypertension FatherDiabetesMotherHeart diseaseMotherHypertensionMotherRelationNameStatus CommentsFatherDeceasedMotherDeceased Social History Tobacco UseTypesPacks/DayYears UsedDateSmoking Tobacco: FormerCigarettes Tobacco Cessation:Counseling Given: Not Answered Alcohol UseStandard Drinks/WeekCommentsYes0 (1 standard drink = 0.6 oz pure alcohol)CommentsUnknownSex and Gender InformationValueDate RecordedSex Assigned at UasdrGqfrhr22/17/2023 7:51 PM EDTLegal EexTbodjv89/15/2023 6:50 PM EDTGender DwptmihtKeykcl12/17/2023 7:51 PM EDTSexual OrientationAsexual 02/18/2023 7:51 PM EDT Last Filed Vital Signs Vital SignReadingTime TakenCommentsBlood Pressure--Pulse--Temperature-- Respiratory Rate--Oxygen Saturation--Inhaled Oxygen Concentration--Zfmrdm51.5 kg (140 lb)12/04/2024 10:02 AM SUTXmplwm578 cm (5' 3 )12/04/2024 10:02 AM EDTBody Mass Index24.8012/04/2024 10:02 AM EDT Plan of Treatment DateTypeDepartmentCare Team (Latest Contact Info)Yiaflggyieu53/10/2026 10:00 AM ESTOffice Visit [facility] [address] [place] [address] Jr. Leonard Ac, DO [address] [facility] [address] [place] [address] Health MaintenanceDue DateLast DoneCommentsCT Eyrdutkonodp74/23/1967Colonoscopy 1966Colorectal Cancer Xggasbaxd68/23/1967FIT-DNA1966FIT1966 FOBT1966 9998Efozidswcugvb72/23/1967Pap Smear1987Cervical Cancer Iktltxmbp93/23/1997HPV/Flylrd4208/27/19962834Joxxjuvxu72/08/202405/02/2023Influenza Vaccine (#1)/05/2023, 04/13/2022, 06/03/2021, Additional history existsPneumococcal Vaccine: Pediatrics (0 to 5 Years) and At-Risk Patients (6 to 64 Years)Aged OutNo longer eligible based on patient's age to complete this topic Procedures Procedure NamePriorityDate/TimeAssociated DiagnosisCommentsPR ARTHROCENTESIS ASPIR&/INJ MAJOR JT/BURSA W/O JHGcxjkjx57/04/2025 11:11 AM EST Acute pain of left shoulder S/P arthroscopy of left shoulder from Last 3 Months Results * [facility] ARTHROCENTESIS ASPIR&/INJ MAJOR JT/BURSA W/O US (05/08/2025 11:11 AM EST) Jr. Leonard June DO - 05/08/2025 11:11 AM EST Jr. Leonard Ac DO 05/08/2025 11:12 AM L Inj/Asp: L subacromial bursa on 05/08/2025 11:11 AM Indications: pain Details: 21 G needle, posterior approach Medications: 40 mg methylPREDNISolone acetate 40 MG/ML Outcome: tolerated well, no immediate complications Utilizing aseptic technique with universal precautions . Pt given injection Left Shoulder SA space ( code 10993 LT) Procedure, treatment alternatives, risks and benefits explained, specific risks discussed. Consent was given by the patient. Patient was prepped and draped in the usual sterile fashion. Authorizing ProviderResult TypeResult StatusJr. Leonard Ac DOIN CLINIC/BEDSIDE ORDERABLESFinal Result from Last 3 Months Insurance Care Teams Team MemberRelationshipSpecialtyStart DateEnd Date Holland Lyons MD [address] [facility], [place] [address] PCP - GeneralFamily Medicine03/27/25
--- OUTSIDE RECORDS SUMMARY | 2025-07-03 15:28 | XMS_ITS | Clinical Summary ---
Author Organization [facility] Address [address] [place] [address] Phone Care Team Providers Care Clothes Wringer Name Role Phone SerenaHolland Jojo HARVEY Primary Care Provider Social History Tobacco UseTypesPacks/DayYears UsedDateSmoking Tobacco: Never Assessed CommentsUnknownSex and Gender InformationValueDate RecordedSex Assigned at Not on fileLegal RgjXdtfkd44/25/2022 3:46 PM ESTGender IdentityNot on fileSexual OrientationNot on file Last Filed Vital Signs Vital SignReadingTime TakenCommentsBlood Kimefuzb912/8005 1:09 PM EDT Wsynn6443/24/2023 1:09 PM EDTTemperature--Respiratory Rate--Oxygen Saturation-- Inhaled Oxygen Concentration--Sbummb26.5 kg (140 lb)11/25/2022 1:09 PM EDTHeight 160 cm (5' 3 )11/25/2022 1:09 PM EDTBody Mass Index24.805 1:09 PM EDT Plan of Treatment Health MaintenanceDue DateLast DoneCommentsCT Kyansmyxaxxg02/23/1967Colonoscopy 1966Colorectal Cancer Cleaaqoad95/23/1967FIT-DNA (Cologuard)1966FIT 1966HIV Dbcxolykt79/23/1967Lipid Panel1966 9405Ubwxmbjesilen44/23/1967 Welcome to Medicare Visit1966MMR Vaccines (1 of 1 - Standard series) 1967Hepatitis C Kvzrxjsrq73/23/1985Hepatitis B Vaccines (1 of 3 - 19+ 3- dose series)1985Pneumococcal Vaccine (1 of 2 - PCV)1985Cervical Cancer Ncgzaoibl07/23/1988HPV/Jvwojr0708/27/1987Pap Smear1987DTaP/Tdap/Td Vaccines (1 - Tdap)08/27/19885994Vjuelkicd98/23/2007Zoster Vaccines (1 of 2) 2016COVID-19 Vaccine (1 - 2024- season)2025Influenza Vaccine (#1) 2025HIB VaccinesAged OutNo longer eligible based on patient's age to complete this topicHPV VaccinesAged OutNo longer eligible based on patient's age to complete this topicHepatitis A VaccinesAged OutNo longer eligible based on patient's age to complete this topicIPV VaccinesAged OutNo longer eligible based on patient's age to complete this topicMeningococcal VaccineAged OutNo longer eligible based on patient's age to complete this topicRotavirus VaccinesAged Out No longer eligible based on patient's age to complete this topic Insurance Care Teams Team MemberRelationshipSpecialtyStart DateEnd Date Holland Lyons DO [facility]10/14/22
--- OUTSIDE RECORDS SUMMARY | 2025-07-03 15:28 | XMS_ITS | Encounter Summary ---
Author Organization [employer] s tem Address [id number] [address] [place] [address] Care Team Providers Care Vineyard Supervisor Name Role Phone KristinaHolland cutler Jojo HARVEY Primary Care Provider + [phone] Encounter Details DateTypeDepartmentCare Team (Latest Contact Info)Tkaoxpvlzbq06/29/2025Travel Social History Tobacco UseTypesPacks/DayYears UsedDateSmoking Tobacco: FormerSmokeless [...] times a week12/22/2022How often do you attend religious or hindu services?More than 4 times per year12/22/2022o you belong to any clubs or organizations such as religious groups, unions, fraternal or athletic groups, or [...] and heating?Not hard at all 12/22/2022HQ-2AnswerDate RecordedTotal Mxefk459[facility] [place] [facility] Occupational [facility] - Occupational Stress QuestionnaireAnswerDate [...] of a household?No12/22/2022hildcareAnswerDate RecordedDo problems getting children's program coordinator make it 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 for 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 to work [...] a purpose and direction in my life.Strongly Agree3CommentsNoSex and Gender InformationValue Date RecordedSex Assigned at BirthNot on fileLegal SolKdawun32/06/2015 11:46 AM EDTGender IdentityNot on fileSexual OrientationNot on filedocumented as of this encounter Plan of Treatment DateTypeDepartmentCare Team (Latest Contact Info)Kgauzlidmiq72/21/2026 8:00 AM ESTAppointment [facility] [address] [place] [address] 08/09/2025 7:45 AM ESTOffice Visit [facility] [address] [place] [address] Dayron Zuniga PA [address] [place] [address] 11/08/2025 2:00 PM EDTOffice Visit [facility] [address] [place] [address] documented as of this encounter Visit Diagnoses Not on filedocumented in this encounter Additional Health Concerns AssessmentNoted TimePHQ-9 Depression Total Score: 3:38 PM EDT documented as of this encounter Care Teams Team MemberRelationshipSpecialtyStart DateEnd Date Holland Lyons DO [address] [place] [address] PCP - GeneralFamily Tyowmtzp56/10/19documented as of this encounter
--- OUTSIDE RECORDS SUMMARY | 2025-07-03 15:28 | XMS_ITS | Encounter Summary ---
Author Organization [facility] Address [address] [place] [address] Care Team Providers Care Clinical Support Tech Name Role Phone Holland Lyons DO Primary Care Provider [phone] Encounter Details DateTypeDepartmentCare Team (Latest Contact Info)Cwbjvdzzkdf43/30/2025Travel Social History Tobacco UseTypesPacks/DayYears UsedDateSmoking Tobacco: FormerCigarettesQuit: 1999Smokeless Tobacco: NeverAlcohol UseStandard Drinks/WeekCommentsNot Currently 0 (1 standard drink = 0.6 oz pure alcohol)[facility] UtilitiesAnswerDate RecordedIn the past 12 months has the electric, gas, oil, or water [employer] threatened to shut off services in your [...] CommentsNoSex and Gender InformationValueDate RecordedSex Assigned at Gxxpda6003/08/2025 1:41 PM EDTLegal CkqHkdnqx60/29/2022 9:24 PM EDTGender Identity Oyvtfw6403/08/2025 1:41 PM EDTSexual OrientationHeterosexual or Rnfxtcud54/04/2025 1:41 PM EDTdocumented as of this encounter Plan of Treatment DateTypeDepartmentCare Team (Latest Contact Info)Efedfwxdbji20/07/2026 8:30 AM ESTHospital Encounter [facility] [address] [place] [address] Lincoln Ramirez MD [address] [facility] [place] [address] Other chest pain; Wide QRS complex present on vqbhdohpdtvvljrfqma87/07/2026 8:30 AM EST - 07/11/2025 9:30 AM ESTSurgery [facility] [address] [place] [address] Lincoln Ramirez MD [address] [facility] [place] [address] Coronary angiographydocumented as of this encounter Visit Diagnoses Not on filedocumented in this encounter Care Teams Team MemberRelationshipSpecialtyStart DateEnd Date Holland Lyons DO PCP - General01/04/23documented as of this encounter
--- OUTSIDE RECORDS SUMMARY | 2025-07-03 15:28 | XMS_ITS | Encounter Summary ---
Author Organization [employer] s tem Address [id number] [address] [place] [address] Care Team Providers Care Jde Developer Name Role Phone KristinaHolland cutler Jojo HARVEY Primary Care Provider + [phone] Encounter Details DateTypeDepartmentCare Team (Latest Contact Info)Zokhrdobqsl96/30/2025Travel Social History Tobacco UseTypesPacks/DayYears UsedDateSmoking Tobacco: FormerSmokeless [...] times a week12/22/2022How often do you attend bahai or yazidi services?More than 4 times per year12/22/2022o you belong to any clubs or organizations such as bahai groups, unions, fraternal or athletic groups, or [...] and heating?Not hard at all 12/22/2022HQ-2AnswerDate RecordedTotal Asloi297Finmountain view hospital [place] of Occupational Health - Occupational Stress QuestionnaireAnswerDate [...] part of a household?No12/22/2022hildcareAnswerDate RecordedDo problems getting director of child welfare services make it difficult for you to work [...] Date RecordedSex Assigned at BirthNot on fileLegal GulAvxdhy82/06/2015 11:46 AM EDTGender IdentityNot on fileSexual OrientationNot on filedocumented as of this encounter Plan of Treatment DateTypeDepartmentCare Team (Latest Contact Info)Dhnqdwsigzt54/21/2026 8:00 AM ESTAppointment [facility] - MRI [address] [place] [address] 08/09/2025 7:45 AM ESTOffice Visit [facility] [address] [place] [phone] Dayron Zuniga PA [address] [place] [address] 11/08/2025 2:00 PM EDTOffice Visit [facility] [address] [place] [address] documented as of this encounter Visit Diagnoses Not on filedocumented in this encounter Additional Health Concerns AssessmentNoted TimePHQ-9 Depression Total Score: 3:38 PM EDT documented as of this encounter Care Teams Team MemberRelationshipSpecialtyStart DateEnd Date Holland Lyons DO [address] [place] [address] PCP - GeneralFamily Tpeegklq33/10/19documented as of this encounter
--- OUTSIDE RECORDS SUMMARY | 2025-07-03 15:28 | XMS_ITS | Clinical Summary ---
Author Organization [facility] Address [address], [address] [place] [address] Care Team Providers Care Shield Runner Name Role Phone Unavailable Primary Care Provider Unavailabl e Allergies Active AllergyReactionsCriticalityNoted FdqoNbxsdcbbXfmzmlf40/07/2013 Medications MedicationSigDispense QuantityRefillsLast FilledStart DateEnd DateStatus Levothyroxine Sodium (LEVOXYL PO) Take by mouth.Active Active Problems ProblemNoted DateDiagnosed DateOther plastic surgery for unacceptable cosmetic dindrkpugy11/14/2013 Social History Tobacco UseTypesPacks/DayYears UsedDateSmoking Tobacco: NeverSmokeless Tobacco: NeverAlcohol UseStandard Drinks/WeekCommentsNo0 (1 standard drink = 0.6 oz pure alcohol)CommentsUnknownSex and Gender InformationValueDate RecordedSex Assigned at BirthNot on fileLegal OntZbcfnt84/10/2013 12:49 PM ESTGender IdentityNot on fileSexual OrientationNot on file Plan of Treatment Not on file Insurance
--- OUTSIDE RECORDS SUMMARY | 2025-07-03 15:28 | XMS_ITS | Clinical Summary ---
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 Has received multiple courses of piperacillin/tazobactam without noted reaction inpatient. IrzswovbvnlyqtEckwsky07/05/8218VvfpnmkLgewxdugeaeZoyv75/07/2013 Tolerated hydromorphone 03/2022 Iodinated Contrast IqrneTklgruc07/25/2100PuukrjehkuwiztrkZuytNtf60/04/2023 YdrqdzogSaerw81/11/8433KibkbiecahsjLlwcVgu66/04/2023 Medications MedicationSigDispense QuantityRefillsLast FilledStart DateEnd DateStatus famotidine (Pepcid) 20 mg tablet Take 20 mg by mouth in the morning.Active CALCIUM CITRATE, BULK, MISC 1,500 mg in the morning.Active levothyroxine (Synthroid, Levoxyl) 125 mcg tablet Indications:Hypothyroidism, unspecified typeTake 1 tablet (125 mcg) by mouth before breakfast for 97 doses.4Active Additional Information Patient not taking.Reported on 06/19/2025 multivitamin tablet Take 1 tablet by mouth in the morning.Active furosemide (Lasix) 40 mg tablet Indications:Edema, unspecified typeTake 1 tablet (40 mg) by mouth two times daily. 180 tablet 302502/6Active Additional Information Patient taking differently:40 mg oralDaily, Reported on 06/19/2025 spironolactone (Aldactone) 25 mg tablet Indications:Edema, unspecified typeTake 1 tablet (25 mg) by mouth in the morning. 90 tablet 303//775201/6Active Additional Information Patient not taking.Reported on 06/19/2025 pravastatin (Pravachol) 20 mg tablet Indications:Hyperlipidemia, unspecified hyperlipidemia typeTake 1 tablet (20 mg) by mouth at bedtime. 90 tablet 303503/6Active levothyroxine (Synthroid, Levoxyl) 112 mcg tablet Indications:Paroxysmal atrial fibrillation (CMS/HCC),Other specified hypothyroidismTake 1 tablet (112 mcg) by mouth before breakfast. 90 tablet 304504/6Active flecainide (Tambocor) 100 mg tablet Indications:Paroxysmal atrial fibrillation (CMS/HCC)Take 1 tablet (100 mg) by mouth two times daily. 180 tablet 305//6Active Additional Information Patient not taking.Reported on 06/19/2025 aspirin 81 mg EC tablet Take 81 mg by mouth in the morning.Active metoprolol succinate XL (Toprol-XL) 25 mg 24 hr tablet Indications:SVT (supraventricular tachycardia)Take 1 tablet (25 mg) by mouth once daily as directed. Do not crush or chew. 90 tablet 306///6Active apixaban (Eliquis) 5 mg tablet Indications:Paroxysmal atrial fibrillation (CMS/HCC)Take 1 tablet (5 mg) by mouth two times daily. 180 tablet 308//6Active Active Problems ProblemNoted DateDiagnosed DateCoronary fwgludhal10/16/2025Other chest pain 06/19/2025Wide QRS complex present on gwnxtdjbvfjgtmypblr81/16/2025Kidney stone 08/10/2024Ureteral stone with zanzgpjpzhkhdg20/06/6685Fibqiylcf64/13/2024 Adhesive capsulitis of left atzqabbl12/30/2024Tear of left rotator cuff 03/03/2024cute pain of left ccavgcht05/19/2024alcific tendonitis of left ldyaafcj69/19/2024Sinus node ulsztpnxsfk18/27/8736Txejnlwnpcjy76/13/2024losed nondisplaced fracture of anterior process of right avpenmisu68 Haizaeahtxfvkl86hest pain, rule out acute myocardial jqnixcpuhn46NSTEMI (non-ST elevated myocardial infarction) hronic abdominal wound infection, tpwynxi3006/29/2023 07/06/2023bdominal wall fluid jeczcnbgytl62hronic eczema of hand3635Tysvxtxlzcjdbkvjpkcp88/05/202307/05/2023Obesity Vitamin D uhzleaxiqj86Tinea pedis cute postoperative pain Overview (01/06/2023): Last Assessment & Plan: Assessment: Presents in NAD. Pain controlled on exam. 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 Dalton. [facility]. Plan: - Advance to GIS diet - Continue bowel regimen - PRN antiemetics - Keep hager catheter today - DVT ppx - continue SQH q8h - D/C mIVF - Wean o2 as able - Daily labs while in house - replete lytes PRN - PT/OT consult - Dispo: RNF SVT (supraventricular tachycardia)12/17/2022 Overview (01/06/2023): Last Assessment & Plan: Assessment: HR stable 60-70 BPM. Plan: - Continue metop - hold parameters in place Assessment & Plan (01/10/2023 10:16 PM EDT): - 30 Day event monitor - CHADVASC 1, for now we will have her continue her aspirin Former Overview (01/06/2023): Last Assessment & Plan: Assessment: Former smoker 15 years 1/2 PPD. Quit 25 years ago. Plan: - Encourage smoking cessation Gastroesophageal reflux disease without iegijwllzjo72 Overview (01/06/2023): Last Assessment & Plan: Plan: - Continue home pepcid History of coronary Overview (01/06/2023): Last Assessment & Plan: Assessment: On pravastatin, metoprolol and ASA Plan: - Continue metoprolol - Continue pravastatin - Discuss with staff when to resume ASA History of non-ST elevation myocardial infarction (NSTEMI) Overview (01/06/2023): Last Assessment & Plan: Assessment: [facility] 09/17/22 without blockages. Started on aspirin. LVEF 60% Plan: - Discuss with staff when to resume Asa (oozy case) Tgswaemizymfja08 Overview (01/06/2023): Last Assessment & Plan: Plan: - Continue home pravastatin Jennifer's ftfyxfq17 Overview (01/06/2023): Last Assessment & Plan: Noted improved dramatically with weight loss AV nancy re-entry uvxiujodrsc79/26/202307/11/2022Recurrent incisional hernia /astric leakehydration12/13/2021 01/06/2023 Overview (01/06/2023): Last Assessment & Plan: Assessment: Presented to ED with lightheadedness, fevers, tachycardia. Received 3L crystalloid in ED PLAN: - Volume replacement in TPN Last Assessment & Plan: Assessment: Presented to ED with lightheadedness, fevers, tachycardia. Received 3L crystalloid in ED PLAN: - Volume replacement in TPN Gastric zvntoxjctfe76/11/202207/11/2022 Overview (01/06/2023): Last Assessment & Plan: Assessment: [...] rec non-operative management for now Mild protein-calorie knwmcbrjudym09/11/202207/11/2022 Overview (01/06/2023): Last Assessment & Plan: Assessment: Malnutrition PLAN: - Nutrition following - Continue TPN Last Assessment & Plan: Assessment: Malnutrition PLAN: - Nutrition following - Continue TPN On total parenteral nutrition (TPN) Overview (01/06/2023): Last Assessment & Plan: Assessment: on TPN chronically via PICC. PLAN: - Nutrition following - Continue TPN - NPO for now (was on soft diet at home) Shortness of vceqja75bnormal cardiovascular stress test Overview (01/06/2023): Added automatically from request for surgery [id number] Essential jifqwclegbqa56 Overview (01/06/2023): Last Assessment & Plan: Assessment: SBP in 90-100. On metoprolol at home - stated she only takes 12.5 mg . Plan: - Continue metoprolol - hold for SBP < 100 and HR < 60 Assessment & Plan (01/10/2023 10:16 PM EDT): - stable, continue medication Qladpxdoxob07rthralgia of multiple rsanvn19 History of agiffds35rthritis Overview (01/06/2023): New onset Joint pain and [...] seroma of subcutaneous tissue after non-dermatologic procedure bdominal wall ojyxot62 Overview (01/06/2023): Abdominal wall seroma secondary to abdominoplasty for ventral hernia S/p wound vac now with wet to dry dressing Plan: Daily dressing change Wound care consult COPD (chronic obstructive pulmonary disease) Overview (01/06/2023): COPD on anoro-ellipta and albuterol prn Stale, no SOB wheezing Plan: Continue home meds Last Assessment & Plan: Assessment: inhaler as needed. Stable Last Assessment & Plan: Assessment: Not on medications at home. Follows with PCP. On 2 L NC with Spo2 of 98% on 2 L NC Plan: - Wean o2 as able - PRN albuterol for SOB Edema Overview (01/06/2023): EF 64% in 2016 NO cardiac history ON furosemide for b/l LE edema Plan: Monitor I and O Continue home furosemide dose BMP - monitor electrolytes and creatinine. Qzzpqdufkoz36 Overview (01/06/2023): ON levothyroxine 200 mcg Plan: TSH Continue home meds Last Assessment & Plan: Assessment: stable Last Assessment & Plan: Assessment: On synthroid at home. Plan: - Continue home synthroid - F/u with PCP Obstructive sleep apnea pilivwqc72 Overview (01/06/2023): Last Assessment & Plan: Assessment: Reports that this has improved since weight loss. Plan: - F/u with PCP on discharge Other plastic surgery for unacceptable cosmetic rwdqbrrvon21 Vasospastic angina Assessment & Plan (01/10/2023 10:15 PM EDT): -Stable - angiographically normal cath 09/2022 likely related to vasospasm - continue aspirin, pravastatin, metoprolol Resolved Problems ProblemNoted DateDiagnosed DateResolved DateObesity, Class I, BMI 30-34.9 // Overview (01/06/2023): Last Assessment & Plan: Assessment: PLAN: Obesity, Class III, BMI 40-49.9 (morbid obesity)/ Overview (01/06/2023): BMI 52.90 Encounters DateTypeDepartmentCare HeutGiiuujoblsj98/30/8886Mriiaf11/16/2025 9:15 AM EST Office Visit [facility] [address] [place] [address] Adrian Ibrahim MD Other chest pain (Primary Dx); Wide QRS complex present on vhmzgagtjoeyezunklo18/04/2025 12:35 PM ESTAncillary Procedure [facility] [address] [place] [phone] Adjustment and management of cardiac ntneuncge53/04/2025Orders Only [facility] [address] [place] [address] Adrian Ibrahim MD 04/10/2025 11:30 AM EDTAncillary Procedure [facility] [address] [place] [address] Encounter for implantable defibrillator reprogramming or check04/10/2025Orders Only [facility] [address] [place] [address] Provider, MD Travis from Last 3 Months Family History Medical HistoryRelationNameCommentspacemakerFatherHeart failureMother HyperlipidemiaMotherRelationNameStatusCommentsBrotherAliveFatherDeceasedMother DeceasedSisterAlive Social History Tobacco UseTypesPacks/DayYears UsedDateSmoking Tobacco: FormerCigarettesQuit: 2000Smokeless Tobacco: Never Tobacco Cessation:Counseling Given: Not Answered Alcohol UseStandard Drinks/WeekCommentsNot Currently0 (1 standard drink = 0.6 oz pure alcohol)[facility] UtilitiesAnswerDate RecordedIn the past 12 months has the electric, gas, oil, or water [employer] threatened to shut off services in your home?No12/16/2023Humiliation, Afraid, Rape, and Kick questionnaireAnswerDate RecordedWithin the last year, have you been afraid of your partner or ex-partner?No12/16/2023Emotionally AbusedNot on file12/16/2023hysically Abused Not on file12/16/2023Sexually AbusedNot on file12/16/2023Overall Financial Resource Strain (CARDIA)AnswerDate RecordedHow hard is it for you to pay for the very basics like food, housing, medical care, and heating?Not hard at all 12/16/2023UT Safety & EnvironmentAnswerDate RecordedWithin the last year, have you been afraid of your partner or ex-partner?No12/16/2023Emotionally AbusedNot on file12/16/2023hysically AbusedNot on file12/16/2023Sexually AbusedNot on file12/16/2023In the past year have you been physically or sexually abused? Unrecognized value12/16/2023TransportationAnswerDate RecordedIn the past 12 months, has [...] CommentsNoSex and Gender InformationValueDate RecordedSex Assigned at Malgms1103/08/2025 1:41 PM EDTLegal ClsTbfxii92/29/2022 9:24 PM EDTGender Identity Dhgrvz2603/08/2025 1:41 PM EDTSexual OrientationHeterosexual or Neiqvvgv62/04/2025 1:41 PM EDT Last Filed Vital Signs Vital SignReadingTime TakenCommentsBlood Lrejqppa480/8106/19/2025 9:13 AM EST Jnxan190306/19/2025 9:13 AM NMIVpmtaguvccl39.6 ??C (97.8 ??F)12/18/2023 12:10 PM EDTRespiratory Ogvr770202/07/2024 1:15 PM EDTOxygen Luevphismo41%06/19/2025 9:13 AM ESTInhaled Oxygen Concentration--Pqwaco07 kg (139 lb)06/19/2025 9:13 AM EST Rzbvwh677 cm (5' 3 )06/19/2025 9:13 AM ESTBody Mass Index24.6206/19/2025 9:13 AM EST Plan of Treatment DateTypeDepartmentCare Team (Latest Contact Info)Jugvgqypqdz35/07/2026 8:30 AM ESTHospital Encounter [facility] [address] [place] [address] Lincoln Ramirez MD [address] [facility] [place] [place] [address] Other chest pain; Wide QRS complex present on boritsfrubxlfmclphg27/07/2026 8:30 AM EST - 07/11/2025 9:30 AM ESTSurgery [facility] [address] [place] [address] Lincoln Ramirez MD [address] [facility] [place] [address] Coronary angiographyHealth MaintenanceDue DateLast DoneCommentsCT Colonography 1966 7942Likxryrqhfq77/23/1967Colorectal Cancer Bwjitjqvt08/23/1967FIT-DNA 1966FIT1966FOBT1966Medicare Annual Wellness (AWV)1966 Bksuvxzcasxca70/23/1967Depression Nbfzfauxi30/23/1979Hepatitis B Vaccines (1 of 3 - 19+ 3-dose series)1985Pap Smear1987Cervical Cancer Screening 1996HPV/Mbntae6708/27/19964260Fdjuapano04/08//3COVID-19 Vaccine ( season)/, 04/20/2022, 05/06/2021, Additional history existsInfluenza Vaccine (#1)/05/2023, 04/13/2022, 06/03/2021, Additional history existsPneumococcal Vaccine: Pediatrics (0 to 5 Years) and At- Risk Patients (6 to 64 Years) (3 of 3 - PCV20 or PCV21)611/, 05/22/2016, 05/22/2016Adult Nioycfs27/Zoster VaccinesCompleted 06/16/2022, 04/13/2022HIB VaccinesAged OutNo longer eligible based on patient's age to complete this topicHPV VaccinesAged OutNo longer eligible based on patient's age to complete this topicIPV VaccinesAged OutNo longer eligible based on patient's age to complete this topicMeningococcal B VaccineAged OutNo longer eligible based on patient's age to complete this topicMeningococcal VaccineAged OutNo longer eligible based on patient's age to complete this topicRotavirus VaccinesAged OutNo longer eligible based on patient's age to complete this topic Medical Devices ImplantedTypeAreaManufacturerDevice IdentifierShelf Expiration DateModel / Serial / LotIngevity+ Is-1 Bi Positive Fix Ra/Rv 52cm Implanted:Qty: 1 on 02/07/2024 by Adrian Ibrahim MD at [facility] [id number] / [id number] / Ingevity+ Is-1 Bi Positive Fix Ra/Rv 45cm Implanted:Qty: 1 on 02/07/2024 by Adrian Ibrahim MD at [facility] [id number] / [id number] / Pacer,Accolade,Mri Dr Acosta - [id number] - [id number] Implanted:Qty: 1 on 02/07/2024 by Adrian Ibrahim MD at [facility] [id number] / [id number] / Procedures Procedure NamePriorityDate/TimeAssociated DiagnosisCommentsCARDIAC DEVICE CHECK CHECK - IQAVVIGfoggmj51/09/2025 10:00 AM EST Adjustment and management of cardiac pacemaker CARDIAC DEVICE CHECK - REMOTE - TQGRMOCNOXuhmtgo40/04/2025 12:00 AM ESTCARDIAC DEVICE CHECK - IN CLINIC - PACEMAKER DUAL CHAMBER W/ VIGBDaobcxy66/07/2025 2:20 PM EDT Encounter for implantable defibrillator reprogramming or check from Last 3 Months Results * CARDIAC DEVICE CHECK - REMOTE - PACEMAKER (06/12/2025 10:00 AM EST)Specimen (Source)Anatomical Location / LateralityCollection Method / VolumeCollection TimeReceived Time Narrative Authorizing ProviderResult TypeResult StatusWyjanay SpauldingParkview Medical Center IMPLANTABLE CARDIAC DEVICE PROCEDURESFinal ResultPerforming OrganizationAddressCity/State/ZIP Code Phone Number CPACS * Cardiac device check - Remote pacemaker (06/07/2025 12:00 AM EST)Anatomical RegionLateralityModalityOtherSpecimen (Source)Anatomical Location / Laterality Collection Method / VolumeCollection TimeReceived Time06/07/2025 Narrative Authorizing ProviderResult TypeResult StatusGreens[place] PatriceWashington [facility] Hospital IMPLANTABLE CARDIAC DEVICE PROCEDURESFinal Result * CARDIAC DEVICE CHECK - IN CLINIC - PACEMAKER DUAL CHAMBER W/ PROG (04/10/2025 2:20 PM EDT)Anatomical RegionLateralityModalityOtherSpecimen (Source) Anatomical Location / LateralityCollection Method / VolumeCollection Time Received Time Narrative 04/16/2025 9:45 AM EDT Normal device function Authorizing ProviderResult TypeResult [facility] IMPLANTABLE CARDIAC DEVICE PROCEDURESFinal Result from Last 3 Months Insurance Advance Directives * Full Code (Latest Code Status on File) Date ActivatedDate InactivatedComments12/16/2023 2:27 PM12/18/2023 7:21 PM Care Teams Team MemberRelationshipSpecialtyStart DateEnd Date Holland Lyons DO [facility]01/04/23
--- OUTSIDE RECORDS SUMMARY | 2025-07-03 15:28 | XMS_ITS | Encounter Summary ---
Author Organization [employer] Address [id number] [address] [place] [address] Care Team Providers Care Manager Strategic Partnerships Name Role Phone KristinaHolland cutler Jojo HARVEY Primary Care Provider + [phone] Encounter Details DateTypeDepartmentCare Team (Latest Contact Info)Tcgpbldriee45/19/2025Travel Social History Tobacco UseTypesPacks/DayYears UsedDateSmoking Tobacco: FormerSmokeless [...] times a week12/22/2022How often do you attend orthodox or restorationism services?More than 4 times per year12/22/2022o you belong to any clubs or organizations such as orthodox groups, unions, fraternal [...] and heating?Not hard at all 12/22/2022HQ-2AnswerDate RecordedTotal Tbsyt584Fin[facility] [place] of Occupational Health - Occupational Stress QuestionnaireAnswerDate [...] of a household?No12/22/2022hildcareAnswerDate RecordedDo problems getting director child development center make it difficult for you to work or study?No 12/22/2022EmploymentAnswerDate RecordedDo you need help finding a local career center and/or a training program?No12/22/2022Hunger ScreeningAnswerDate Recorded Within the past 12 months we worried whether our food would run out before we got money to buy more.Never True01/11/2025Within the past 12 months the food we bought just didn't last and we didn't have money to get more.Never True 01/11/2025Purpose - LifeAnswerDate RecordedI have a purpose and direction in my life.Strongly Agree3CommentsNoSex and Gender InformationValue Date RecordedSex Assigned at BirthNot on fileLegal MonSmjndl32/06/2015 11:46 AM EDTGender IdentityNot on fileSexual OrientationNot on filedocumented as of this encounter Plan of Treatment DateTypeDepartmentCare Team (Latest Contact Info)Xrzqjiytluq19/21/2026 8:00 AM ESTAppointment [facility] - MRI [address] [place] [address] 08/09/2025 7:45 AM ESTOffice Visit [facility] [address] [place] [address] Dayron Zuniga PA [address] [place] [address] 11/08/2025 2:00 PM EDTOffice Visit [facility] [address] [place] [address] documented as of this encounter Visit Diagnoses Not on filedocumented in this encounter Additional Health Concerns AssessmentNoted TimePHQ-9 Depression Total Score: 3:38 PM EDT documented as of this encounter Care Teams Team MemberRelationshipSpecialtyStart DateEnd Date Holland Lyons DO [address] [place] [address] PCP - GeneralFamily Llsorsfd99/10/19documented as of this encounter
--- OUTSIDE RECORDS SUMMARY | 2025-07-03 15:28 | XMS_ITS | Patient Health Record ---
Author Organization [facility] in [place] Address [address] [place] [address] Care Team Providers Care Carbon Printer Name Role Phone None, Unknown or Primary Care Provider Unavailab le Allergies Allergen (clinical drug ingredient) Drug/Non Drug Allergy documented on EMR Reaction Allergy Type Onset Date Status KeflexSkin pealingDrug AllergyActivetramadoltraMADol HClhallucinationsDrug AllergyActivecodeineCodeineanaphylaxisDrug AllergyActive Reason For Referral No Information Medications Medication SIG (Take, Route, Frequency, Duration) Notes Start Date End Date Status Multivitamin - 1 tablet Orally Once a day ActiveBactrim 400-80 MG1 tablet Orally Once a dayActivePravastatin Sodium 20 MG1 tablet Orally Once a dayActiveLevothyroxine Sodium 112 MCG1 tablet in the morning on an empty stomach Orally Once a dayActiveAspirin 81 MG1 tablet Orally Once a dayActiveMetoprolol Succinate 25 MG1 capsule Orally Once a dayActive Social History Tobacco Use: Social History Observation Description Date Details (start date - stop date) Never Smoker NA - NA Tobacco Use/Smoking Question Answer Notes Patient is a nonsmoker Problems Problem Type SNOMED Code ICD Code Onset Dates Problem Status W/U Status Risk Notes Problem Acquired hypothyroidism (400890486) Acqui red hypothyroidism (E03.9) Activeconfirmed Plan Of Treatment No Information Insurance Providers Payer Name Payer Address Payer Phone Subscriber Number Group Number Insured Name Patient Relationship to Insured Coverage Start Date Coverage End Date ANTHEM MEDICARE ADV PLAN [address] [place] [phone] [id number] Meghann Kahn - patient is the [id number] 2023[facility] LIFEPO [address] [place] [phone], TinaSelf - patient is the insuredMEDICAID [address] OFFICE OF [place], [place] [id number], TinaSelf - patient is the insured Medical (General) History Medical History History ICD Code Arthropathy, unspecified M12.9 High blood pressure 401.9 Disorder of thyroid, unspecified E07.9 Keratoderma Q82.8 Surgical History Surgery Date(Month/Year) Bariatric Sx 11/2020 Knee Surgery 12/2020 Stomach Leak Repair 11/2021 Stomach/Removal 03/2022 Abdominal Wall/Hernia 12/2022 Hospitalization History Reason Date(Month/Year) See above
--- OUTSIDE RECORDS SUMMARY | 2025-07-03 15:28 | XMS_ITS | Clinical Summary ---
Author Organization [facility] Address [address] [place], [place] [id number] Care Team Providers Care Labor Delivery Specialist Name Role Phone Holland Lyons DO Primary Care Provider Allergies Active AllergyReactionsCriticalityNoted DateCommentsCodeineAnaphylaxisHigh 03/17/2016 Tolerated hydromorphone 03/2022 CephalexinHives,Other: See VfyvjddhAptd23/17/2017 Peeling of skin. Has received multiple courses of piperacillin/tazobactam without noted reaction inpatient. TramadolMental Status GgnqlkXfpuwv68/11/2023 Hallucinations and nightmares Medications MedicationSigDispense QuantityRefillsLast FilledStart DateEnd DateStatus aspirin 81 mg chewable tablet Aspirin (Children's Aspirin) 81 mg Tablet,Chewable Active 81 MG PO Daily 90 90 September 18, 2022 12:00am09/18/2022ctive pravastatin (PRAVACHOL) 20 mg tablet 12/09/2022ctive multivit-min/iron/folic acid/K (BARIATRIC MULTIVITAMINS ORAL) Active levothyroxine (SYNTHROID) 112 mcg tablet Take 1 tablet by mouth daily at bedtime. 30 tablet 05/06/2023ctive acetaminophen (TYLENOL) 500 mg tablet Take 2 tablets by mouth every 6 hours as needed for pain.06/30/2023ctive docusate sodium (COLACE) 100 mg capsule Take 1 capsule by mouth two times a day as needed for constipation.06/30/2023 Active Active Problems ProblemNoted DateDiagnosed DateS/P yahnjiukgda07/27/2023hronic abdominal wound infection, ijdufnj1506/29/2023bdominal wall fluid zdbisarmugh76/30/2023S/P repair of ventral omumzj4012/31/2022 Assessment & Plan (01/01/2023 10:06 AM EDT): [...] hernia repair with mesh placement with Dr. Beffa. ROSAS. Plan: - Continue CLD - Continue bowel regimen - PRN antiemetics - D/C hager catheter - DVT ppx - continue SQH q8h - Decrease mIVF - Wean o2 as able - Daily labs while in house - replete lytes PRN - PT/OT consult - Dispo: RNF Acute postoperative pain12/31/2022 Assessment & Plan (01/01/2023 10:06 AM EDT): Assessment: Presents in NAD. Pain controlled on exam. Plan: - D/C TRANSMITTER ENGINEER today - Gabapentin BID - ATC tylenol Assessment & Plan (12/31/2022 10:02 AM EDT): Assessment: Presents in NAD. Pain controlled on exam. Plan: - Wean dilaudid TRANSMITTER ENGINEER given softer BP - Gabapentin BID - ATC tylenol SVT (supraventricular tachycardia)12/17/2022 Assessment & Plan (06/15/2023 11:41 AM EST): Assessment: Has holter monitor on currently, is to come off on 06/28. Follows cardiology, Dr. Donaldson in [place]. Reports lightheadedness, no syncope, CP, SOB. Assessment [...] visit Followed by cardiology 11/25/22 Nazanin Sinha THERAPEUTIC DIETITIAN-MOISTURE MACHINE TENDER notes generally doing well since last visit Scanned office visit notes and cardiac rehab visit into chart EKG 12/16/22 showed SINUS BRADYCARDIA History of non-ST elevation myocardial infarction (NSTEMI)12/16/2022 Assessment & Plan (06/15/2023 11:28 AM EST): Assessment: d/t coronary vasospasms, follows cardiology. Denies stents. Assessment & Plan (01/01/2023 10:04 AM EDT): Assessment: [facility] 09/17/22 without blockages. Started on aspirin. LVEF 60% Plan: - Discuss with staff when to resume Asa (oozy case) Assessment & Plan (12/31/2022 9:51 AM EDT): Assessment: [facility] 09/17/22 without blockages. Started on aspirin. LVEF 60% Plan: - Discuss with staff when to resume Asa (oozy case) Assessment & Plan (12/17/2022 6:45 PM EDT): 09/17/22 Left Cardiac Heart Cath showed without blockages, started ASA No stents Noted Stress 2018 without convincing ischemia LEVF 60% Former zyhrtv1912/16/2022 Assessment & Plan (01/01/2023 10:04 AM EDT): [...] yrs 1/2 PPD Quit 25 years ago Vmxrthpxmstdeb78/14/2023 Assessment & Plan (06/15/2023 11:07 AM EST): Assessment: Complaint on statin therapy. Encouraged lifestyle modifications. Assessment & Plan (01/01/2023 10:04 AM EDT): Plan: - Continue home pravastatin Assessment & Plan (12/31/2022 9:53 AM EDT): Plan: - Continue home pravastatin Assessment & Plan (12/16/2022 6:04 AM EDT): Managed with atorvastatin (LIPITOR) Followed by PCP Gastroesophageal reflux disease without wppeneifvkx19/14/2023 Assessment & Plan (06/15/2023 11:17 AM EST): Assessment: Controlled on rx. Advised avoidance of triggers. Following with PCP. Assessment & Plan (01/01/2023 10:04 AM EDT): Plan: - Continue home pepcid Assessment & Plan (12/31/2022 9:55 AM EDT): Plan: - Continue home pepcid Assessment & Plan (12/16/2022 6:05 AM EDT): Managed with Followed by PCP Jennifer's zknwfvg6612/16/2022 Assessment & Plan (12/16/2022 6:07 AM EDT): Noted improved dramatically with weight loss Essential ekrrcjfkeorp81/14/2023 Assessment & Plan (06/15/2023 11:26 AM EST): [...] this visit Patient reports History of coronary nhitblzro89/14/2023 Assessment & Plan (01/01/2023 10:05 AM EDT): [...] Metoprolol, Amlodipine, Atorvastin and ASA Recurrent incisional xghdlm0909/21/2022astric leak03/03/2022Gastric perforation 12/13/2021 Assessment & Plan (12/15/2021 9:44 [...] in the morning On total parenteral nutrition (TPN)12/13/2021 Assessment & Plan (12/15/2021 9:44 AM EDT): [...] PLAN: - Consult to nutrition for TPN Okkmbpcgooy75/11/2022 Assessment & Plan (12/15/2021 9:44 AM EDT): Assessment: Presented to ED with lightheadedness, fevers, tachycardia. Received 3L crystalloid in ED PLAN: - Volume replacement in TPN Assessment & Plan (12/14/2021 4:41 AM EDT): Assessment: Presented to ED with lightheadedness, fevers, tachycardia. Received 3L crystalloid in ED PLAN: - Volume replacement in TPN Obesity, Class I, BMI 30-34.9012/13/2021 Assessment & Plan (12/15/2021 9:44 AM EDT): Assessment: PLAN: Mild protein-calorie /11/2022 Assessment & Plan (12/15/2021 9:45 AM EDT): Assessment: Malnutrition PLAN: - Nutrition following - Continue TPN Assessment & Plan (12/14/2021 4:40 AM EDT): Assessment: Malnutrition PLAN: - Nutrition following - Continue TPN Mjbwuuepyjm95/25/2018Pain in joint, multiple sites08/23/2017History of uveitis 08/23/20174726Vlcuwdajx96/31/2017Postoperative seroma of subcutaneous tissue after non-dermatologic offhbsqio29/07/2017Abdominal wall buaoee4201/27/2017 Overview (07/04/2017): Abdominal wall seroma secondary to abdominoplasty for ventral hernia S/p wound vac now with wet to dry dressing Plan: Daily dressing change Wound care consult Obesity, Class III, BMI >= 40 (morbid obesity) E66.01011/27/2016 Overview (07/04/2017): BMI 52.90 COPD (chronic obstructive pulmonary disease)06/23/2016 Assessment & Plan (06/15/2023 11:25 AM EST): [...] 2 L NC with stable o2 saturations thismorning. Plan: - Wean o2 as able - PRN albuterol for SOB Assessment & Plan (12/16/2022 11:16 AM EDT): Patient states stable and controlled since weight loss Followed by PCP No inhalers used Assessment & Plan (02/27/2022 11:10 AM EDT): Assessment: inhaler as needed. Stable GAGE (obstructive sleep apnea)06/23/2016 Assessment & Plan (06/15/2023 11:08 AM EST): [...] no longer has GAGE after weight loss Wuaqzwofwey09/20/2016 Assessment & Plan (06/15/2023 11:18 AM EST): [...] 150mcg levothyroxine PLAN: - continue home levothyroxine Edema06/23/2016 Overview (07/04/2017): EF 64% in 2016 NO cardiac history ON furosemide for b/l LE edema Plan: Monitor I and O Continue home furosemide dose BMP - monitor electrolytes and creatinine. Resolved Problems ProblemNoted DateDiagnosed DateResolved DateAcute urinary xuyipkbif47/30/2023 01/04/2023 Assessment & Plan (01/01/2023 10:06 AM EDT): Assessment: Developed urinary retention s/p hager removal 12/31. Requiring straight cath and subsequent hager replacement. Plan: - Flomax - Continue hager catheter today Recurrent ventral ymuewn24/09/2022 Assessment & Plan (01/01/2023 10:05 AM EDT): [...] and OOB TC for meal times Reactive drdoovvog65Pink eye Overview (07/04/2017): Bilateral conjunctival redness Decreased vision, 20/200 on snellen chart Describes it as blotches on the chart Headache associated initially, improved with timolol and steroid eye drops as per patient Plan: Opthalmology consult Continue timolol eye drops for IOP control Inflammatory mxtnnylqh93Abdominal pain Abdominal wall cnkgyn49 Immunizations ImmunizationAdministration DatesNext Dueinfluenza (IIV3) vaccine, age 6 mo - 64 yr, trivalent (AFLURIA, FLULAVAL, FLUVIRIN, FLUZONE)05/15/2016influenza (IIV3) vaccine, trivalent (AFLURIA, FLULAVAL, FLUVIRIN, FLUZONE)06/01/2015influenza (IIV3) vaccine, trivalent, PF (AFLURIA, FLUARIX, FLULAVAL, FLUVIRIN, FLUZONE) 04/18/2017,06/01/2015influenza (IIV4) vaccine, age 6 mo - 64 yr, quadrivalent (AFLURIA, FLULAVAL, FLUZONE)05/04/2018influenza (IIV4) vaccine, age 6 mo - 64 yr, quadrivalent, PF (AFLURIA, FLUARIX, FLULAVAL, FLUZONE)06/03/2021,04/19/2020, 04/23/2019influenza (ccIIV4) vaccine, age 6+ mo, quadrivalent, PF (FLUCELVAX) 05/01/2018influenza vaccine, unspecified xvmuobvwewp36/18/2017,04/04/2016 pneumococcal conjugate (PCV13) vaccine, 13 valent (PREVNAR 13)05/22/2016 pneumococcal polysaccharide (PPV23) vaccine, 23 valent (PNEUMOVAX 23)06/03/2021 pneumococcal vaccine, unspecified cgsozusdeyl68/18/2016 Family History Medical HistoryRelationCommentsMyocardial infarctionFatherdied of COPD and dementia 80GlaucomaMaternal AuntDiabetesMotherdied of COPDIschemic Heart Disease MotherAngioplastyAnesthesia ProblemsNo Family HistoryRelationStatusComments FatherDeceasedMaternal AuntMotherDeceased Social History Tobacco UseTypesPacks/DayYears UsedDateSmoking Tobacco: FormerCigarettes0.55 04/13/1993 - 04/13/1998Smokeless Tobacco: Never Tobacco Cessation:Counseling Given: Not Answered Alcohol UseStandard Drinks/WeekCommentsNot Currently0 (1 standard drink = 0.6 oz pure alcohol)none in a year as of 02/2022.Overall Financial Resource Strain (CARDIA)AnswerDate RecordedHow hard is it for you to pay for the very basics like food, housing, medical care, and heating?Not very hard3PHQ-2Answer Date RecordedPHQ-2 kleao047Hunger Vital SignAnswerDate RecordedWithin the past 12 months, you worried that your food would run out before you got the money to buymore.Never true05/04/2023Within the past 12 months, the food you bought just didn't last and you didn't have money to get more.Never true 3PRAPARE - TransportationAnswerDate RecordedIn the past 12 months, has lack of transportation kept you from medical appointments or from getting medications?No05/04/2023In the past 12 months, has lack of transportation kept you from meetings, work, or from getting things needed for daily living?No 05/04/2023Housing Stability Vital SignAnswerDate RecordedIn the last 12 months, was there a time when you were not able to pay the mortgage or rent on time?No 05/04/2023Number of Places Lived in the Last YearNot on file05/04/2023In the last 12 months, was there a time when you did not have a steady place to sleep or slept in ashelter (including now)?No05/04/2023rea Deprivation IndexAnswer Date RecordedNational Score (1-100), lower number is lower opzr344811/23/2022State Score (1-10), lower number is lower qrru16311/23/2022ata from: https://www.neighborhoodatlas.medicine.[facility].edu/. Last address used for [address] Y11/23/2022CommentsNoSex and Gender InformationValueDate RecordedSex Assigned at RflfqUnmwez77/23/2022 6:18 PM EDT Legal VzkUzcmjv43/16/2016 2:46 PM EDTGender KccjwtdmZdyhrk97/23/2022 6:18 PM EDT Sexual JdcbdezncxhEoudwwhm54/23/2022 6:18 PM EDT Last Filed Vital Signs Vital SignReadingTime TakenCommentsBlood Tscmofur946/76009/23/2023 11:04 AM EDT Wzcas920209/23/2023 11:04 AM FLVDaaomlluzuz80.7 ??C (98.1 ??F)09/23/2023 11:04 AM EDTRespiratory Ntai893809/01/2022 1:11 PM ESTOxygen Krjfrlxrno11%07/01/2023 1:11 PM ESTInhaled Oxygen Concentration--Jwjpwk96.8 kg (136 lb 4.8 oz)09/23/2023 11:04 AM FPEPfclmp083 cm (5' 3 )09/23/2023 11:04 AM EDTBody Mass Index24.14 09/23/2023 11:04 AM EDT Plan of Treatment Health MaintenanceDue DateLast DoneCommentsAnnual PCP Team Chronic Disease Visit 1984Anxiety Ufbpfuyou79/23/1985Depression Wlomapckl49/23/1985Hepatitis C Fcqwvarfm60/23/1985Hepatitis B Vaccine (1 of 3 - 19+ 3-dose series)1985 Cervical Cancer Pjmjuhzvz64/23/1988CT Giismdowvbud73/23/2012Cologuard (FIT-DNA) 08/27/20114174Bicvjdabjtx58/23/2012Colorectal Cancer Mjwkarogn01/23/2012Fecal Occult Blood08/27/20116299Wyegqekfhpwbz02/23/2012RSV Vaccine (1 - Risk 50-74 years 1-dose series)2016Lipid Desxffdqx49/11/2017Mammogram Screening /02/2023, 11/09/2022Medicare Advantage Annual Wellness Visit 5Covid-19 Vaccine ( season)/, 05/06/2021, 10/08/2020, Additional history existsInfluenza Vaccine (#1)/05/2023, 04/13/2022, 06/03/2021, Additional history existsPneumococcal Vaccine: 50+ (3 of 3 - PCV20 or PCV21)6108/03/2020, 05/22/2016, 05/22/2016Diabetes Pjryaaoap78, 06/30/2023, 05/05/2023, Additional history exists DTaP,Tdap,Td Vaccine (2 - Td or Tdap)HIV ScreeningCompleted 10/07/2017Shingrix YfhzrdmVkwfzexkh12/13/2022, 04/13/2022 Medical Devices ImplantedTypeAreaManufacturerDevice IdentifierShelf Expiration DateModel / Serial / LotMesh Prolene Square Flat 61q76ze Surgical Knit Nonabsorbable Nonreactive - [id number] Implanted:[facility]MeshN/A: AbdomenJOHNSON AND TQNOUWJ2811/02/2027PML / / TEBBSTStent Zimmon 7fr 2 Pigtail Curve Purple Polyethylene 7cm 170cm Biliary - [id number] Implanted:Qty: 1 on [facility]08/20[facility] BUILDINGStentN/A: AbdomenCOOpenGov INC JAYHADLQW82/04/5236DWN23 / / [id number] Monster Secur-Hugh 18fr Silicone Gastrostomy Medication Port Radiopaque - [id number] Implanted:Qty: 1 [facility]02/20[facility] CenterTubeN/A: AbdomenFAUQUIER HEALTH SYSTEM [id number] / / [id number] Procedures Procedure NamePriorityDate/TimeAssociated DiagnosisCommentsBASIC METABOLIC PANEL Sngsosw7007/01/2023 6:31 AM EST LIPID PANEL, BOHHXUIMxdtegc02/05/2018 10:59 AM EDT Class 3 obesity due to excess calories in adult Pure hypercholesterolemia Essential hypertension, benign Obstructive sleep apnea syndrome Morbid obesity (HCC) Congenital 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 HIV 1/2 COMBO WITH REFLEX TO QLOYFIYKZJCGYGZRpuqkwd22/05/2018 1:03 PM EDT Reactive arthritis (HCC) from Last 3 Months or Most Recently Relevant to Health Maintenance Results * (ABNORMAL) BASIC METABOLIC PNL (07/01/2023 6:31 AM EST)ComponentValueRef Range Test MethodAnalysis TimePerformed AtPathologist EepzalsboVugyyqf2147 - 99 mg/dL07/01/2023 8:01 AM ESTRIVERVIEW [facility]ALTH INSTITUTE LABComment: The [place] Diabetes Association (ADA) provides guidance for cutoff values for fasting glucose andrandom glucose. The ADA defines fasting as no [...] Standards of Medical Care in Diabetes 2016, [place] Diabetes Association. Diabetes Care. 2016.39(Suppl 1). DSO190 - 21 mg/dL07/01/2023 8:01 AM [facility] Creatinine0.700.58 - 0.96 mg/dL07/01/2023 8:01 AM [facility] DJSSaswlb425957 - 144 mmol/L109/01/2022 8:01 AM [facility] LABPotassium4.33.7 - 5.1 mmol/L109/01/2022 8:01 AM [facility] HQLUqznxqpk475(H)97 - 105 mmol/L109/01/2022 8:01 AM [facility] TXKRW55119 - 30 mmol/L109/01/2022 8:01 AM [facility] LABAnion Gap8(L)9 - 18 mmol/L109/01/2022 8:01 AM [facility] LABCalcium, Total8.68.5 - 10.2 mg/dL07/01/2023 8:01 AM [facility] LABEstimated Glomerular Filtration Rwnk088>=60 mL/min/1.73m 07/01/2023 8:01 AM [facility] LABComment:Estimated Glomerular Filtration Rate (eGFR) is calculated using the 2020 CKD-EPI creatinine equation. This equation utilizes serum creatinine, sex, and age as parameters. The creatinine assay has traceable calibration to isotope dilution- mass spectrometry. Refer to KDIGO guidelines for clinical interpretation. In patients with unstable renal function, e.g. those with acute kidney injury, the eGFRmay not accurately reflect actual GFR.Specimen (Source)Anatomical Location / LateralityCollection Method / VolumeCollection TimeReceived TimeBloodBLOOD SPECIMEN / UnknownVenipuncture / Zdkfbpq5407/01/2023 6:31 AM EST07/01/2023 6:43 AM EST Narrative Authorizing ProviderResult TypeResult StatusLucas Geovany Dalton MD LABORATORYFinal ResultPerforming OrganizationAddressCity/State/ZIP CodePhone Number [facility] [address] [place] [address], * (ABNORMAL) LIPID PANEL BASIC (01/06/2018 10:59 AM EDT)ComponentValueRef Range Test MethodAnalysis TimePerformed AtPathologist SignatureCholesterol, Mhbak420 (H)<200 mg/dL01/06/2018 2:49 PM [facility] LABORATORYComment: <200 mg/dL, Desirable 200-239 mg/dL, Borderline high >239 mg/dL, High Vmyagutiudod431(H)<150 mg/dL01/06/2018 2:49 PM [facility] LABORATORYComment: <150 mg/dL, Normal 150-199 mg/dL, Borderline high 200-499 mg/dL, High >499 mg/dL, Very high HDL Uqanretncpw61>39 mg/dL01/06/2018 2:49 PM [facility] Comment: 40-59 mg/dL, Acceptable >59 mg/dL, High: Negative risk factor for coronary heart disease <40 mg/dL, Low: Positive risk factor for coronary heart disease LDL Cholesterol, Jcyynbvmau247(H)<100 mg/dL01/06/2018 2:49 PM [facility] LABORATORYComment: <100 mg/dL, Optimal 100-129 mg/dL, Near optimal/above optimal 130-159 mg/dL, Borderline high 160-189 mg/dL, High >189 mg/dL, Very high Secondary prevention optimal LDL Cholesterol levels are recommended to be < 70 mg/dL Non HDL Vgvnlsqjaem913(H)<130 mg/dL01/06/2018 2:49 PM [facility] LABORATORYComment: <130 mg/dL, Optimal 130-159 mg/dL, Near optimal/above optimal 160-189 mg/dL, Borderline high 190-219 mg/dL, High >219 mg/dL, Very high Secondary prevention optimal non HDL Cholesterol levels are recommended to be < 100 mg/dL Fasting OilkKuygwajoxt73/05/2018 2:49 PM [facility] LABORATORYVLDL Sukncbaoiye21(H)<30 mg/dL01/06/2018 2:49 PM [facility] TC:HDL Ratio3.83<5.1007 2:49 PM [facility] LDL:HDL Ratio2.12<2.5407 2:49 PM [facility] Comment: Reference: 1. National Cholesterol Education Program ATP III Guideline At-A-Glance Quick Desk Reference: National Heart, Lung, and Blood [place]. National Institutes of Health. 2001: NIH Publication No. 01-3305. 2. An International Atherosclerosis Society position paper: global recommendations for the management of dyslipidemia: executive summary, Atherosclerosis. 2014: 232(2):410-413. Specimen (Source)Anatomical Location / LateralityCollection Method / Volume Collection TimeReceived TimeBlood specimen (specimen)BLOOD SPECIMEN / Unknown 01/06/2018 10:59 AM EDT01/06/2018 11:01 AM EDT Narrative Authorizing ProviderResult TypeResult StatusSangmervin Dubois MDLABORATORYFinal ResultPerforming OrganizationAddressCity/State/ZIP CodePhone Number [facility] [address] [place] [address] * HIV 1,2 COMBO (AG/AB) (10/07/2017 1:03 PM EDT)ComponentValueRef RangeTest MethodAnalysis TimePerformed AtPathologist SignatureHIV 12 Combo (Ag/Ab)Non ReactiveNon Necfjiwq56/06/2018 12:04 PM [facility]TCKIN[facility] Comment: (NOTE) HIV Information: ??[place] Rev. Code 3701.243(E): This information has been [...] release of HIV test results or diagnoses. Specimen (Source)Anatomical Location / LateralityCollection Method / Volume Collection TimeReceived TimeBlood specimen (specimen)BLOOD SPECIMEN / Unknown 10/07/2017 1:03 PM EDT10/07/2017 1:05 PM EDT Narrative Authorizing ProviderResult TypeResult StatusStephen (Fel)(Hist) Saleem LABORATORYFinal ResultPerforming OrganizationAddressCity/State/ZIP CodePhone Number [facility] [address] [place] [address] from Last 3 Months or Most Recently Relevant to Health Maintenance Insurance Advance Directives TypeDate RecordedPatient RepresentativeExplanationAdvance Directive(s)03/03/2022 5:54 PM Care Teams Team MemberRelationshipSpecialtyStart DateEnd Date Holland Lyons DO [address] [place] [address] [facility]/06/16
--- OUTSIDE RECORDS SUMMARY | 2025-07-03 15:28 | XMS_ITS | Encounter Summary ---
Author Organization [facility] Address [address] [place] [address] Care Team Providers Care Medicine Technologist Name Role Phone Holland Lyons MD Primary Care Provider [phone] Encounter Details DateTypeDepartmentCare Team (Latest Contact Info)Jfhfscmlekf01/16/2025amboo flowsheet [facility] [address] [place] [address] Jr. Leonard Ac, DO [address] [place] [address] Social History Tobacco UseTypesPacks/DayYears UsedDateSmoking Tobacco: FormerCigarettesAlcohol UseStandard Drinks/WeekCommentsYes0 (1 standard drink = 0.6 oz pure alcohol) CommentsUnknownSex and Gender InformationValueDate RecordedSex Assigned at EifviBggavp11/17/2023 7:51 PM EDTLegal YzaHhuenc65/15/2023 6:50 PM EDTGender EhoszfelHvyubg70/17/2023 7:51 PM EDTSexual PshsbnmssdxIacjpjd77/17/2023 7:51 PM EDTdocumented as of this encounter Plan of Treatment DateTypeDepartmentCare Team (Latest Contact Info)Mnqseuhymyw27/10/2026 10:00 AM ESTOffice Visit [facility] [address] [place] [address] Jr. Leonard Ac, DO [address] [place] [address] documented as of this encounter Visit Diagnoses Not on filedocumented in this encounter Care Teams Team MemberRelationshipSpecialtyStart DateEnd Date Holland Lyons MD [address] [place] [address] PCP - GeneralFamily Medicine03/27/25documented as of this encounter
[2025-07-03 15:39] LABS: Hematocrit 38.8 % (36.0-48.0); Hemoglobin 12.3 g/dL (12.0-16.0); Immature Granulocytes Abs Auto 0.02 10^3/uL (0.00-0.03); Immature Granulocytes Pct Auto 0.3 % (0.0-0.5); Lymphocytes Absolute Auto 2.0 10^3/uL (1.2-3.8); Mean Corpuscular HGB Conc 31.7 g/dL (29.9-35.2); Mean Corpuscular Hemoglobin 27.6 pg (26.7-34.0); Mean Corpuscular Volume 87.0 fL (81.0-99.0); Platelet Count 243 10^3/uL (150-450); Red Blood Count 4.46 10^6/uL (4.20-5.40); White Blood Count 6.8 10^3/uL (4.0-11.0)
[2025-07-03 15:47] LABS: Anion Gap 12.7; Blood Urea Nitrogen 40.0 mg/dL (7.0-18.0); Calcium 9.2 mg/dL (8.5-10.1); Carbon Dioxide 28.2 mmol/L (21.0-32.0); Chloride 104 mmol/L (98-107); Estimated GFR (African America >60 (>=60 mL/min/1.73m^2); Estimated GFR (Non-African Ame 53 (>=60 mL/min/1.73m^2); Glucose 100 mg/dL (74-106); Potassium 3.9 mmol/L (3.5-5.1); Sodium 141 mmol/L (136-145)
== END 2025-07-03 15:23 | disposition home or self-care (01) ==
PROVIDERS: PCP Family Medicine; Visit Provider Internal Medicine Cardiovascular Disease
DX: R07.89 Other chest pain (principal); R94.31 Abnormal electrocardiogram [ECG] [EKG]
CPT/HCPCS: 36415; 80048; 85025